=== PATIENT | female | born 1940 | race Caucasian/White ===

== ENCOUNTER → 2018-02-05 06:30 | Outpatient (CLI) | payer MEDICARE, SELFPAY ==
--- NOTE | 2018-02-05 06:33 | MRI_ITS ---
STUDY: MRI RIGHT KNEE REASON FOR EXAM: Female, 77 years old. Right-sided knee pain. TECHNIQUE: Standardized fat and water weighted pulse sequences were obtained in all 3 orthogonal planes. COMPARISON: None. 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 There is signal heterogeneity within the articular cartilage of the medial femorotibial compartment with thinning of the articular cartilage. Normal medial femoral condyle and tibial plateau. There is fluid distension of the tibial collateral bursa, consistent with an associated bursitis. Normal distal semimembranosus, gracilis and semitendinosus tendons. Normal lateral meniscus. There is diffuse, greater than 50% thickness articular cartilage loss of the lateral femorotibial compartment. Normal lateral femoral condyle and tibial plateau. Normal proximal tibiofibular articulation. Normal lateral collateral (fibular) ligament. Normal popliteus tendon. Normal biceps femoris tendon. There may be some myxoid degeneration of the distal portion of the anterior cruciate ligament. The anterior cruciate ligament appears intact. Normal posterior cruciate ligament (PCL). Normal congruent patellofemoral articulation. There is signal heterogeneity within the articular cartilage of the patellofemoral compartment with moderate thinning of the articular cartilage surface. Normal medial and lateral patellar retinaculum. Normal quadriceps tendon. Normal patellar tendon. Normal Hoffa's fat pad. There is a small volume joint effusion. There is a Foley's cyst measuring approximately 6 x 2.3 x 1.1 cm in size. There is soft tissue edema adjacent to the patellar tendon. This may be the result of patellar tendinopathy or soft tissue contusion. The otherwise visualized osseous structures are unremarkable. MRI/Lower Ext Joint Only (Routine) IMPRESSION: 1. 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 2. Small joint effusion. 3. Foley's cyst. 4. Inflammation of the medial collateral ligament with possible bursitis. 5. Apparent sequela of soft tissue contusion of the anterior knee. Electronically Signed: Estephania Benson MD at 8:59 EDT , Service support ,
== END ==
PROVIDERS: Family Provider Internal Medicine; PCP Internal Medicine; Visit Provider Orthopaedic Surgery
DX: M23.8X1 Other internal derangements of right knee (principal)
CPT/HCPCS: 73721

== ENCOUNTER 2018-03-05 05:58 | Observation (INO) | payer MEDICARE, SELFPAY ==
[2018-02-26 13:27] VITALS: BP 141/82; PULSE 77; RESP 16; TEMP 36.6; O2SAT 98; BMI 26.8
--- NOTE | 2018-02-26 13:34 | SDCEKG_ITS ---
Test Reason : Blood Pressure : / mmHG Vent. Rate : 074 BPM Atrial Rate : 074 BPM P-R Int : 142 ms QRS Dur : 082 ms QT Int : 396 ms P-R-T Axes : 050 -04 047 degrees QTc Int : 439 ms Normal sinus rhythm Normal ECG Confirmed by IRENE LOVE MD ([id number]), photography editor JORGE ZUNIGA ([id number] on 03/01/2018 12:49:45 PM Referred By: Calvin Alanis Confirmed By:IRENE LOVE MD
[2018-02-26 13:59] LABS: Hematocrit 35.3 % (37-47); Hemoglobin 11.8 g/dl (12.0-15.0); Mean Corp Hgb Conc 33.4 g/gl (32-36); Mean Corpuscular Hgb 29.9 pg (27.0-32.0); Mean Corpuscular Volume 89.6 fL (81-99); Platelet Count 254 K/mm3 (150-450); RBC Distribution Width CV 12.6 % (11.6-14.6); RBC Distribution Width SD 40.4 fl (35.1-43.9); Red Blood Count 3.94 M/mm3 (4.2-5.4); Scan Indicated on CBC? Y/N NO; White Blood Count 5.7 K/mm3 (4.4-11.0)
[2018-02-26 14:02] LABS: Prothrombin Time (Protime)PT. 13.1 SECONDS (11.7-14.9)
[2018-02-26 14:03] LABS: Partial Thromboplast Time 28.5 Seconds (24.1-36.2)
[2018-02-26 14:12] LABS: Anion Gap 5 (5-15); BUN 15 mg/dL (7-18); BUN/Creat Ratio 19.3 RATIO (10-20); Calcium,Total 9.4 mg/dL (8.5-10.1); Chloride 99 mmol/L (98-107); Creatinine, Serum 0.78 mg/dL (0.55-1.02); EST Glomerular Filtration Rate 77 mL/min (>60); Est Glom Filt Rate - Afr Amer 93 mL/min (>60); Estimated Creatinine Clearance 40.21 ml/min; Glucose 100 mg/dL (74-106); Potassium 3.4 mmol/L (3.5-5.1); Sodium Level 135 mmol/L (136-145)
--- NOTE | 2018-02-28 15:53 | CASEMGMT ---
RN CM preop call to Omaira Odom. Omaira reports she lives alone in a single story home with 2 steps to enter. Omaira needs a walker and reports she would like to go to the TCU or RU for therapy as she does live alone and will not have assistance, unless her sister could stay with her. Omaira reports she is borrowing a raised toilet seat from her sister. RN CM explained the process for TCU/RU placement, and Omaira verbalizes understanding. RN CM let patient know an RN CM would be by to discuss transition planning and care coordination with her further after her surgery. Disposition Plan: TCU/RU vs Home with support of sister Moses. BERNARDO ChavarriaN, RN-BC, CCM
[2018-03-05] VITALS (14 sets, daily range): BP systolic 97–132; BP diastolic 52–70; PULSE 61–81; RESP 14–18; TEMP 36.2–36.4; O2SAT 94–100; BMI 26.8
--- NOTE | 2018-03-05 07:17 | PCM.DC.ORTHO ---
Discharge Activity: Return to Normal Activity, May not drive while taking narcotic pain medications., May Shower, Use Walker May shower in (days): 1 Ice area for (Minutes): 20 Weight Bearing Status: Weight bearing as tolerated Keep extremity elevated above heart level: Right Leg Call your doctor if your incision/area has: Continuous Slow Oozing, Sudden Increased Bleeding, Increased Pain/ Swelling, Increased Redness, Foul Smelling Discharge, Swelling at the incision site Call your doctor if you observe: Fever of 101 or Higher, Coldness, Increased Pain, Numbness or Tingling, Change in Color, Inability to urinate, Inability to have a bowel movement, Using more than one pad per hour, Shortness of breath, Dizziness, Fainting spells, Swelling in the ankles, Chest pain, Prolonged hiccoughing, Increased palpitations (irregular heartbeat), Calf discomfort, Uncontrolled pain Suture Line Care: Avoid Pulling/Pushing, Avoid Pinching/Bending Change Dressing in (Days):: 5 Remove Dressing in (days):: 5 Cleanse incision/area with: Soap & Water Allergies/Adverse Reactions: Allergies cortisone Adverse Reaction (Verified 02/26/18 13:04) Nausea hydrochlorothiazide Adverse Reaction (Verified 02/26/18 13:04) Other DIZZINESS,NAUSEA morphine Adverse Reaction (Verified 02/26/18 13:04) Other NAUSEA, LIGHTHEADED, HOT nitrofurantoin [From Macrobid] Adverse Reaction (Verified 02/26/18 13:04) Other DIZZINESS,NAUSEA CREST PRO HEALTH Adverse Reaction (Uncoded 02/26/18 13:04) Other BURNING,LESIONS Medications to take at Discharge Calcium Carb/Vitamin D3/Vit K1 [Viactiv Soft Chew] 1 ea PO BID 12/25/16 Cholecalciferol (Vitamin D3) [Vitamin D3] 5,000 unit PO DAILY 12/25/16 Polyvinyl Alcohol/Povidone/Pf [Refresh Classic Eye Drops] 1 ea OP DAILY PRN 12/25/16 Amlodipine [Norvasc] 5 mg PO DAILY 08/28/17 Betafood 2 tab PO BID 02/26/18 Chlorphil Couplex 1 cap PO TID 02/26/18 Fencho 1 cap PO TID 02/26/18 Gb Tone 26 drop PO TID 02/26/18 Lithuanian Black Radish 1 tab PO TID 02/26/18 Spleen Dessicated 1 tab PO BID 02/26/18 Spleen Pmg 1 tab PO TID 02/26/18 Zypan 1 tab PO TID 02/26/18 traMADol [Ultram] 50 mg PO Q6H 02/26/18 Aspirin E.C. [Ecotrin] 325 mg PO BID #30 tab 03/06/18 Docusate Sodium [Colace] 100 mg PO BID PRN PRN #10 cap 03/06/18 Famotidine [Pepcid] 40 mg PO DAILY #30 tab 03/06/18 proMETHazine tablet [Phenergan] 25 mg PO Q4H PRN PRN #10 tab 03/06/18 traMADol [Ultram] 50 mg PO Q4H PRN PRN #42 tab 03/06/18 The following prescriptions were given: proMETHazine tablet [Phenergan] 25 mg PO Q4H PRN PRN #10 tab PRN Reason: Nausea traMADol [Ultram] 50 mg PO Q4H PRN PRN #42 tab PRN Reason: Pain Docusate Sodium [Colace] 100 mg PO BID PRN PRN #10 cap PRN Reason: Constipation Famotidine [Pepcid] 40 mg PO DAILY #30 tab Aspirin E.C. [Ecotrin] 325 mg PO BID #30 tab Primary Care Physician: Raquel Alexis DO [Primary Care Provider] - Please Follow Up With: Calvin Alanis DO When: call [facility] for appt for 2 weeks Proposed Discharge Date: 03/06/18
[2018-03-05] MEDS: Celecoxib 200 MG Capsule PO (07:26)
[2018-03-05] MEDS: oxyCODONE HCl Cr 10 MG Tablet PO (07:26)
[2018-03-05] MEDS: Cefazolin 2 GM in 0.9% Normal Saline 100 ML IV (08:43)
--- NOTE | 2018-03-05 10:23 | PCM.OPRPT ---
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 Patient had an MRI that showed chondromalacia and degenerative meniscus tears with extrusion. Patient was informed her options were surgical scope evaluation of the knee meniscus debridement and consideration for subchondral plasty injection if needed and observation versus evaluation for unicompartmental arthroplasty versus total knee. The patient really wanted a 1 and done type procedure and elected for unicompartmental arthroplasty versus total knee. Patient was counseled consented for the aforementioned procedure. She is met in the holding area where she was marked and identified by the orthopedic surgeon. Taken the operating room in satisfactory condition with somewhat to place to identify patient operative procedure and limb. Patient received 2 g Ancef and 1 g of TXA. She underwent a successful spinal anesthesia. She was then prepped and draped in usual fashion. Patient had a well-placed tourniquet the right proximal thigh. Left lower extremity was placed into a well-padded lithotomy position. The right lower extremity had the elevation post in anticipation of flexing the knee to a minimum 110?. She was then prepped and draped in the usual fashion right lower extremity was elevated Esmarch used for exsanguination and tourniquet was increased to 250 mmHg for roughly 55 minutes. Patient had a standard midline incision cheating slightly across the medial border of the patella with sharp dissection down to soft tissues and Bovie cautery 20 bleeding. Then incised longitudinal capsule essentially from the inferior aspect of the VMO moving distally toward the tibial tubercle. The anterior fat pad was dissected. The patient's ACL was well synovialized. Patient had minimal chondromalacia to the lateral compartment. Patellofemoral joint showed grade 2 changes really to the medial and central ridge of the patella but the trochlea was essentially free of any significant changes. The medial compartment showed significant chondromalacia changes at about 45? knee flexion moving more distally and posterior. Patient had standard anteromedial wear patterns consistent with her medial compartment arthrosis. She had an obvious degenerative tear to the meniscus with instability fragments. At that point time the sizing spoons were placed. We elected to use a small sizing spoon for this patient. We then placed the tibial guide using standard technique. We performed our standard sagittal saw cut off the medial aspect of the medial tibial eminence staying parallel to her cut slope. We then performed a standard distal tibial cut using standard technique with good wafer formation. Came out in continuity. At that point time the center aspect of the femur was then identified in the appropriate alignment pins were placed. Posterior cutting block was then performed and this was done using standard technique. At that point time valgus stress was placed the knee in the excess remnant portion of the medial meniscus was resected using standard rim. We were cautious to minimize our anteromedial release. At that point time we began her sizing. Ultimately we sized taking 4 mm off the distal femur. At that point time the 3 mm balloons in both flexion and extension gaps were balanced. We then performed standard preparation of the femur with our posterior chamfer cut. Using standard technique any excess debris was removed. Patient sized to a size B tibial tray. It was positioned accordingly and the standard fin cut was then performed. Trial components were placed in a 3 component poly-gave excellent flexion-extension. Patient remained ligamentously stable and showed no signs of any roof impingement. At that point time the coplanar was introduced to prevent anterior impingement in full extension. Excess debris removed. Cement was then prepared the back table. Tibial component was seated accordingly excess cement was removed. Femoral component was also seated. Please note after drill holes were placed into the distal femur in order to allow for better cement interdigitation. 4 Jody was then introduced to aid with compression during the cement curing process. Wound was copious irrigated during multiple times during the procedure. Upon complete cement curing and excess cement removal, we trialed to a 3 component and felt we had good mechanical alignment stability and range of motion. Trial component removed and the wound scopes irrigated one additional time prior to placement of the 3 mm insert Jody. We then injected the soft tissues to include the posterior capsule with roughly 30 cc of the periarticular cocktail for pain management. At that point time the knee was then closed using [id number] technique with #1 Vicryl. Soft tissues reapproximated 2-0 Vicryl. Skin was reapproximated with running subicular Monocryl and Dermabond and a Silverlon dressing was applied. Tourniquet was let down during final closure. We had no drains or complications. Implants included the [employer] [place] knee small femur the tibia 3 mm tibial Jody insert. Patient be admitted for for 24 hours of IV antibiotics appropriate IV and p.o. pain medication DVT prophylaxis to include SCDs teds early aggressive range of motion in 325 p.o. twice daily of aspirin with appropriate GI prophylaxis. Type of Anesthesia:: Spinal Grafts/Implants Used: [place] [employer] [place] - Complications none - Admit VTE Documentation VTE Present on Admission: No VTE Mechan Device Prophylaxis: SCD's, Knee High ROBERT Hose VTE Pharm Prophylaxis ordered?: Yes
--- NOTE | 2018-03-05 10:31 | PCM.IMDPSTOP ---
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 Patient had an MRI that showed chondromalacia and degenerative meniscus tears with extrusion. Patient was informed her options were surgical scope evaluation of the knee meniscus debridement and consideration for subchondral plasty injection if needed and observation versus evaluation for unicompartmental arthroplasty versus total knee. The patient really wanted a 1 and done type procedure and elected for unicompartmental arthroplasty versus total knee. Patient was counseled consented for the aforementioned procedure. She is met in the holding area where she was marked and identified by the orthopedic surgeon. Taken the operating room in satisfactory condition with somewhat to place to identify patient operative procedure and limb. Patient received 2 g Ancef and 1 g of TXA. She underwent a successful spinal anesthesia. She was then prepped and draped in usual fashion. Patient had a well-placed tourniquet the right proximal thigh. Left lower extremity was placed into a well-padded lithotomy position. The right lower extremity had the elevation post in anticipation of flexing the knee to a minimum 110?. She was then prepped and draped in the usual fashion right lower extremity was elevated Esmarch used for exsanguination and tourniquet was increased to 250 mmHg for roughly 55 minutes. Patient had a standard midline incision cheating slightly across the medial border of the patella with sharp dissection down to soft tissues and Bovie cautery 20 bleeding. Then incised longitudinal capsule essentially from the inferior aspect of the VMO moving distally toward the tibial tubercle. The anterior fat pad was dissected. The patient's ACL was well synovialized. Patient had minimal chondromalacia to the lateral compartment. Patellofemoral joint showed grade 2 changes really to the medial and central ridge of the patella but the trochlea was essentially free of any significant changes. The medial compartment showed significant chondromalacia changes at about 45? knee flexion moving more distally and posterior. Patient had standard anteromedial wear patterns consistent with her medial compartment arthrosis. She had an obvious degenerative tear to the meniscus with instability fragments. At that point time the sizing spoons were placed. We elected to use a small sizing spoon for this patient. We then placed the tibial guide using standard technique. We performed our standard sagittal saw cut off the medial aspect of the medial tibial eminence staying parallel to her cut slope. We then performed a standard distal tibial cut using standard technique with good wafer formation. Came out in continuity. At that point time the center aspect of the femur was then identified in the appropriate alignment pins were placed. Posterior cutting block was then performed and this was done using standard technique. At that point time valgus stress was placed the knee in the excess remnant portion of the medial meniscus was resected using standard rim. We were cautious to minimize our anteromedial release. At that point time we began her sizing. Ultimately we sized taking 4 mm off the distal femur. At that point time the 3 mm balloons in both flexion and extension gaps were balanced. We then performed standard preparation of the femur with our posterior chamfer cut. Using standard technique any excess debris was removed. Patient sized to a size B tibial tray. It was positioned accordingly and the standard fin cut was then performed. Trial components were placed in a 3 component poly-gave excellent flexion-extension. Patient remained ligamentously stable and showed no signs of any roof impingement. At that point time the coplanar was introduced to prevent anterior impingement in full extension. Excess debris removed. Cement was then prepared the back table. Tibial component was seated accordingly excess cement was removed. Femoral component was also seated. Please note after drill holes were placed into the distal femur in order to allow for better cement interdigitation. 4 Jody was then introduced to aid with compression during the cement curing process. Wound was copious irrigated during multiple times during the procedure. Upon complete cement curing and excess cement removal, we trialed to a 3 component and felt we had good mechanical alignment stability and range of motion. Trial component removed and the wound scopes irrigated one additional time prior to placement of the 3 mm insert Jody. We then injected the soft tissues to include the posterior capsule with roughly 30 cc of the periarticular cocktail for pain management. At that point time the knee was then closed using [id number] technique with #1 Vicryl. Soft tissues reapproximated 2-0 Vicryl. Skin was reapproximated with running subicular Monocryl and Dermabond and a Silverlon dressing was applied. Tourniquet was let down during final closure. We had no drains or complications. Implants included the [employer]anna [employer] [place] knee small femur the tibia 3 mm tibial Jody insert. Patient be admitted for for 24 hours of IV antibiotics appropriate IV and p.o. pain medication DVT prophylaxis to include SCDs teds early aggressive range of motion in 325 p.o. twice daily of aspirin with appropriate GI prophylaxis. Estimated Blood Loss: 10 Specimen's removed: none Type of Anesthesia:: Spinal ASA Class: ASA1 Normal Healthy Patient - Admit VTE Documentation VTE Present on Admission: No VTE Mechan Device Prophylaxis: SCD's, Knee High ROBERT Hose VTE Pharm Prophylaxis ordered?: Yes
--- NOTE | 2018-03-05 11:01 | EKG12_ITS ---
Test Reason : POST OP Blood Pressure : / mmHG Vent. Rate : 081 BPM Atrial Rate : 081 BPM P-R Int : 154 ms QRS Dur : 086 ms QT Int : 384 ms P-R-T Axes : 052 004 142 degrees QTc Int : 446 ms Poor data quality, interpretation may be adversely affected Normal sinus rhythm with sinus arrhythmia Nonspecific T wave abnormality Abnormal ECG When compared with ECG of 26-FEB-2018 12:34, Nonspecific T wave abnormality, worse in Inferior leads T wave inversion now evident in Anterior leads Confirmed by KATE STRONG, IRENE ([id number]), senior technical editor JORGE ZUNIGA ([id number]) on 03/08/2018 12:57:42 PM Referred By: Calvin Alanis Confirmed By:IRENE LOVE MD
[2018-03-05] MEDS: Mag Hydrox/Al Hydrox/Simeth 30 ML UDC PO (11:06)
--- NOTE | 2018-03-05 11:10 | RAD_ITS ---
STUDY: X-RAY - RIGHT KNEE REASON FOR EXAM: Female, 77 years old. Unicompartmental knee replacement. TECHNIQUE: 3 view(s) of the knee. COMPARISON: Comparison is made with prior study dated October 25, 2017. FINDINGS: The patient is status post medial unicompartmental knee replacement. There is good alignment. Postoperative soft tissue changes. RAD/Knee 1 or 2 Views IMPRESSION: Status post medial unicompartmental joint replacement. There is good alignment. Electronically Signed: Ian Bhatia MD at 13:05 EDT Tel [phone], Service support ,
[2018-03-05] MEDS: Lactated Ringers 1,000 ML 75 ML IV (12:00)
[2018-03-05] MEDS: oxyCODONE 5 MG Tablet PO (13:51)
[2018-03-05] MEDS: Acetaminophen 500 MG Tablet 1000 MG PO ×2 (13:54→21:36)
--- NOTE | 2018-03-05 14:37 | CASEMGMT ---
Social Work Note SW met with pt to discuss discharge planning and to assist discharge needs. SW introduced self and role at [facility]. SW asked pt about her discharge plans. Per pt, if rehabilitation is required she would like to stay here at the hospital and suggested the Inpatient rehabilitation here at the hospital. SW informed pt that this worker will place a call to inpatient rehab to inform them of referral. CINTHIA placed a call to inpatient rehabilitation and left a message for Maryanne regarding referral for pt. Medical Scientific Officer will continue to follow to assist with discharge planning. Pt denied additional needs at this time. Plan: Inpatient rehabilitation pending acceptance Hannah Toney PEARL MAKER, METHODS AND PROCEDURES ANALYST
--- NOTE | 2018-03-05 15:02 | NURSING ---
therapy asked nursing to check BP prior to working with patient as she was feeling dizzy. reported results to MARTI Cannon.
[2018-03-05] MEDS: Cefazolin 1 GM/50 ML BAG IV (17:08)
[2018-03-05] MEDS: Aspirin 325 MG Tablet PO (17:11)
[2018-03-05] MEDS: Senna/Docusate Sodium 1 Tablet 2 TABLET PO (21:36)
[2018-03-06 00:33] VITALS: BP 144/61; PULSE 83; RESP 17; TEMP 36.9; O2SAT 95
[2018-03-06] MEDS: oxyCODONE 5 MG Tablet PO ×2 (01:52→08:27)
[2018-03-06] MEDS: Cefazolin 1 GM/50 ML BAG IV (01:52)
[2018-03-06] MEDS: Lactated Ringers 1,000 ML 75 ML IV (01:53)
[2018-03-06 02:08] VITALS: BP 121/64; PULSE 63; RESP 16; TEMP 36.6; O2SAT 100
[2018-03-06 02:11] VITALS: O2SAT 100
[2018-03-06] MEDS: Acetaminophen 500 MG Tablet 1000 MG PO ×3 (05:23→21:18)
[2018-03-06] MEDS: traMADol 50 MG Tablet PO ×3 (05:24→21:20)
[2018-03-06 06:25] LABS: Hematocrit 30.5 % (37-47); Hemoglobin 9.7 g/dl (12.0-15.0); Mean Corp Hgb Conc 31.8 g/gl (32-36); Mean Corpuscular Hgb 29.3 pg (27.0-32.0); Mean Corpuscular Volume 92.1 fL (81-99); Mean Platelet Vol. 10.1 fl (6.2-12.0); Platelet Count 199 K/mm3 (150-450); RBC Distribution Width CV 12.8 % (11.6-14.6); RBC Distribution Width SD 42.1 fl (35.1-43.9); Red Blood Count 3.31 M/mm3 (4.2-5.4); White Blood Count 4.8 K/mm3 (4.4-11.0)
[2018-03-06 06:35] LABS: Anion Gap 5 (5-15); BUN 11 mg/dL (7-18); BUN/Creat Ratio 15.9 RATIO (10-20); Calcium,Total 8.4 mg/dL (8.5-10.1); Chloride 104 mmol/L (98-107); Creatinine, Serum 0.69 mg/dL (0.55-1.02); EST Glomerular Filtration Rate 88 mL/min (>60); Est Glom Filt Rate - Afr Amer 106 mL/min (>60); Estimated Creatinine Clearance 40.21 ml/min; Glucose 86 mg/dL (74-106); Potassium 4.4 mmol/L (3.5-5.1); Sodium Level 140 mmol/L (136-145)
[2018-03-06 06:41] LABS: Scan Indicated on CBC? Y/N NO
--- NOTE | 2018-03-06 07:45 | PCM.PN.ORT ---
Subjective: Postop day 1 status post right knee unicompartmental arthroplasty. No major issues overnight. Pain is controlled currently with a combination of OxyIR and tramadol. Patient interested in going to inpatient rehab of available due to the fact that she lives alone. No other reported fevers chills nausea vomiting chest pain or shortness of breath. Patient has been ambulatory. Currently eating breakfast. - Physical Exam General: Alert, Oriented x3, Cooperative, No apparent distress Musculoskeletal: - - Distally neurovascular intact. Range of motion 0-75. No calf pain negative Homans SCDs teds in place. Vital signs remained stable. Hardware well seated well-placed after radiographic review. Vital Signs Temp Pulse Resp BP Pulse Ox 97.8 F 63 16 121/64 H 100 03/06/18 02:08 03/06/18 02:08 03/06/18 02:08 03/06/18 02:08 03/06/18 02:11 Oxygen Delivery Method Room Air Weight: 151 lb 3.794 oz Body Mass Index (BMI) 26.8 Intake and Output for Last 24 Hours 03/04/18 03/05/18 03/06/18 23:59 23:59 23:59 Intake Total 3950 / 3950 713 / 713 Output Total 500 / 500 1100 / 1100 Balance 3450 / 3450 -387 / -387 Laboratory Tests Past 24 Hrs 03/05/18 03/06/18 03/06/18 11:03 05:23 05:23 WBC 4.8 RBC 3.31 L Hgb 9.7 L Hct 30.5 L MCV 92.1 MCH 29.3 MCHC 31.8 L RDW 12.8 RDW Differential 42.1 Plt Count 199 MPV 10.1 Sodium 140 Potassium 4.4 Chloride 104 Carbon Dioxide 31.0 Anion Gap 5 BUN 11 Creatinine 0.69 Estim Creat Clear Calc 40.21 Est GFR (MDRD) Af Amer 106 Est GFR (MDRD) Non-Af 88 BUN/Creatinine Ratio 15.9 Glucose 86 Calcium 8.4 L Troponin I < 0.02 Medical Necessity - Tobacco Use Smoking Status: Never smoker Assessment/Plan Assessment: After orthopedics status post right unicompartmental arthroplasty. Patient doing well. Plan: At this point time we await evaluation by physical therapy and case management for placement to the inpatient rehab unit if available. If the patient does not qualify that we will set up home health for discharge. Please contact me when the patient meets criteria for discharge out to rehab and/or to home. Any major issues please contact me.
[2018-03-06 08:00] VITALS: BP 114/74; PULSE 77; RESP 18; TEMP 36.9; O2SAT 100
[2018-03-06] MEDS: Aspirin 325 MG Tablet PO ×2 (08:27→17:50)
[2018-03-06] MEDS: Senna/Docusate Sodium 1 Tablet 2 TABLET PO ×2 (10:00→21:18)
[2018-03-06] MEDS: amLODIPine 5 MG Tablet PO (10:01)
[2018-03-06] MEDS: 0.9% NaCl Peripheral Flush Adult/Peds IV (10:04)
--- NOTE | 2018-03-06 10:11 | CASEMGMT ---
Social Work Note CINTHIA placed call to Maryanne with Inpatient rehab about referral that this worker sent yesterday. Per Maryanne, pt meets criteria for inpatient rehab but her insurance will not pay for it. Maryanne states that pt can go on TCU list and that she will have a bed for pt tomorrow. CINTHIA states that she will confirm with pt her discharge plans and if she is agreeable to TCU. CINTHIA met with pt to discuss TCU. SW informed pt that her insurance will not cover the inpatient rehabilitation but that this worker can see if her insurance will cover the TCU. SW informed pt that she will remain at the hospital if accepted into TCU and that it will be short term. Pt was receptive to this and agrees to TCU. CINTHIA left a message with Sommer in TCU and spoke with Maryanne that pt that is agreeable for TCU and to submit pre-cert. Maryanne states that she will begin pre-cert. CINTHIA will continue to follow to assist with discharge planning. Plan: TCU pending pre-cert Hannah Toney SYSTEM PROGRAMMER, PHOTOGRAPHIC PROCESS WORKER
--- NOTE | 2018-03-06 14:05 | CASEMGMT ---
Medicare Outpatient Observation Notice review with patient and patient voiced no questions at this time. Original filed on chart and copy provided to patient. Medicare Inpateint vs Observation information packet provided to patient.
[2018-03-06 14:51] VITALS: BP 112/84; PULSE 74; RESP 18; TEMP 36.9; O2SAT 100
[2018-03-06 21:35] VITALS: PULSE 83
[2018-03-07 02:36] VITALS: BP 147/78; PULSE 69; RESP 18; TEMP 35.7; O2SAT 99
[2018-03-07] MEDS: traMADol 50 MG Tablet PO (04:09)
[2018-03-07 06:37] LABS: Hemoglobin 10.5 g/dl (12.0-15.0); Mean Corp Hgb Conc 32.8 g/gl (32-36); Mean Corpuscular Hgb 29.2 pg (27.0-32.0); Mean Corpuscular Volume 89.1 fL (81-99); Mean Platelet Vol. 10.4 fl (6.2-12.0); Platelet Count 216 K/mm3 (150-450); RBC Distribution Width CV 12.9 % (11.6-14.6); RBC Distribution Width SD 41.7 fl (35.1-43.9); Red Blood Count 3.59 M/mm3 (4.2-5.4); White Blood Count 5.9 K/mm3 (4.4-11.0)
[2018-03-07 06:41] LABS: Scan Indicated on CBC? Y/N NO
--- NOTE | 2018-03-07 07:29 | PCM.PN.ORT ---
Subjective: Postop day 2 status post right medial unicompartmental arthroplasty. Patient reports having little bit of dizziness with some the medication which she is somewhat sensitive to. States that she walked to PT and back. Currently tolerating regular diet. No other fevers chills nausea vomiting chest pain or shortness of breath noted. Vital signs remained stable. Awaiting placement to the transitional care unit. - Physical Exam General: Alert, Oriented x3, Cooperative, No apparent distress Musculoskeletal: - - Distally neurovascular intact. No calf pain negative Homans. SCDs teds in place. Range of motion 0-75. H&H reviewed and stable. Urged patient be working on better range of motion. Vital Signs Temp Pulse Resp BP Pulse Ox 96.3 F L 69 18 147/78 H 99 03/07/18 02:36 03/07/18 02:36 03/07/18 02:36 03/07/18 02:36 03/07/18 02:36 Oxygen Delivery Method Room Air Weight: 151 lb 3.794 oz Body Mass Index (BMI) 26.8 Intake and Output for Last 24 Hours 03/05/18 03/06/18 03/07/18 23:59 23:59 23:59 Intake Total 3950 / 3950 3403 / 3403 800 / 800 Output Total 500 / 500 4300 / 4300 1999 / 1999 Balance 3450 / 3450 -897 / -897 -1200 / -1200 Laboratory Tests Past 24 Hrs 03/07/18 05:10 WBC 5.9 RBC 3.59 L Hgb 10.5 L Hct 32.0 L MCV 89.1 MCH 29.2 MCHC 32.8 RDW 12.9 RDW Differential 41.7 Plt Count 216 MPV 10.4 Medical Necessity - Tobacco Use Smoking Status: Never smoker Assessment/Plan Assessment: After orthopedics status post right unicompartmental arthroplasty. Patient doing well. Plan: At this point time we await evaluation by physical therapy and case management for placement to TCU unit if available. If the patient does not qualify that we will set up home health for discharge. Please contact me when the patient meets criteria for discharge out to rehab and/or to home. Any major issues please contact me. Medications are currently on the chart and her medication list has been printed. If there are any forms for me to fill out either fax them to my office or I will come over after clinic and signed them. Any issues please contact me. Continue to work on aggressive pulmonary toileting.
--- NOTE | 2018-03-07 07:32 | PCM.DC.BLA ---
Discharge Summary Date of Admission: 03/05/18 Date of Discharge: 03/07/18 Summary: 77-year-old female admitted status post right medial compartment arthroplasty for 24 hours of IV antibiotics appropriate IV and p.o. pain medication DVT prophylaxis to include SCDs teds early aggressive range of motion and 325 p.o. twice daily of aspirin with GI prophylaxis. Patient was initially evaluated for inpatient rehab but her insurance would not pay for placement. Patient subsequent evaluated for transitional care unit due to the fact that she lives alone and needs some observation in terms of her ability status. No other issues at this point time. Patient is sensitive to medications were to use tramadol predominantly for pain control. Assessment: Aftercare orthopedics status post right unicompartmental arthroplasty. Plan: At this point time anticipate discharge the transitional care unit for 1 to weeks. Patient is weightbearing as tolerated. Continue with DVT prophylaxis to include ROBERT hose, continued mobilization and 325 p.o. twice daily of aspirin with GI prophylaxis. Patient will follow with me in 2 weeks. The patient is in the transitional care unit at her 2 week postop date then I will see her in the transitional care unit to avoid her having to come to the clinic. Any issues please contact me. Patient may shower at this time. Do not submerge wound but shower okay.
[2018-03-07 08:23] VITALS: BP 130/73; PULSE 78; RESP 14; TEMP 36.7; O2SAT 100
[2018-03-07] MEDS: Acetaminophen 500 MG Tablet 1000 MG PO ×2 (08:30→13:55)
[2018-03-07] MEDS: amLODIPine 5 MG Tablet PO (08:30)
[2018-03-07] MEDS: Aspirin 325 MG Tablet PO (08:31)
[2018-03-07] MEDS: Pantoprazole Sodium 40 MG Tablet PO (08:35)
[2018-03-07] MEDS: Senna/Docusate Sodium 1 Tablet 2 TABLET PO (08:36)
--- NOTE | 2018-03-07 09:53 | CASEMGMT ---
Social Work Note SW received message that pt's insurance denied TCU. SW informed pt of this. CINTHIA explained the option of Home Health Care to pt and pt is agreeable to this. Pt is also agreeable to [facility] Home Health. CINTHIA informed MARTI Villafuerte of this and she made referral to [facility] Home Health. Pt is also wanting a walker at discharge and CINTHIA informed RN OSCAR Villafuerte of this as well who will follow up with walker. CINTHIA placed call to Dr. Alanis that pt will be going home with Home Health Care. Plan: Home with [facility] Home Health Care Hannah GERMAN, RADIO STATION MANAGER
--- NOTE | 2018-03-07 09:57 | CASEMGMT ---
MARTI MOORE received update from CINTHIA Toney that patient was denied TCU and is requesting HHC with [facility]. Also informed patient will need FWW. MARTI MOORE sent referral to [facility] for PT and they will be able to accept the patient. MARTI MOORE requested script from Dr. Alanis's office for FWW and will forward to patient's preferred DME company and arrange to have walker delivered to hospital prior to discharge. MARTI MOORE will continue to follow this patient and plan for a safe discharge.
[2018-03-07 13:59] VITALS: BP 119/70; PULSE 74; RESP 16; TEMP 36.8; O2SAT 93
--- NOTE | 2018-03-07 14:27 | CASEMGMT ---
Social Work Note Per BATTALION CHIEF Casandra Valiente, pt would like to complete health care POA and living will. SW completed health care POA and living will with pt and payroll secretary Senia witness signatures of pt. Health car POA and living will completed. Pt received originals and copy on pt's chart. Plan: Home with [facility] Home Health Care Hannah Toney TECHNICAL SUPPORT SPECIALIST, BUSINESS ASST
== END 2018-03-07 14:55 | disposition home health service (06) ==
PROVIDERS: Anesthesiology; Admitting Provider Orthopaedic Surgery; Family Provider Internal Medicine; PCP Internal Medicine; Visit Provider Orthopaedic Surgery
PROC: (CPT 27446; principal; 2018-03-05 07:35)
DX: M23.303 Other meniscus derangements, unspecified medial meniscus, right knee (principal); M23.8X1 Other internal derangements of right knee; G89.29 Other chronic pain; R42 Dizziness and giddiness; Z79.82 Long term (current) use of aspirin; Z79.899 Other long term (current) drug therapy; I10 Essential (primary) hypertension; Z85.828 Personal history of other malignant neoplasm of skin; I27.20 Pulmonary hypertension, unspecified; R01.1 Cardiac murmur, unspecified; G47.30 Sleep apnea, unspecified; K44.9 Diaphragmatic hernia without obstruction or gangrene
CPT/HCPCS: 27446; 64447; 36415; 73560; 80048; 84484; 85027; 85610; 85730; 87081; 93005; 96361; 96365; 96366; 96367; 97110; 97116; 97162; 97165; 97530; 97535; 99218; J7120; A4216; G0378; G0379; J2405

== ENCOUNTER → 2018-04-15 09:16 | Outpatient (CLI) | payer MEDICARE, SELFPAY ==
--- NOTE | 2018-04-15 09:17 | RAD_ITS ---
STUDY: X-RAY - RIGHT KNEE REASON FOR EXAM: Female, 77 years old. Postop. TECHNIQUE: 4 view(s) of the knee. COMPARISON: None. FINDINGS: The patient is status post medial arthroplasty. The prosthetic components are intact and the heart calculated normally with each other. There is no loosening from the underlying bone. The distal femur and proximal tibia are otherwise unremarkable. Normal proximal fibula. There is no fracture or destructive osseous pathology. Normal lateral femorotibial compartment. Normal patellofemoral articulation. There is a small suprapatellar joint effusion. The soft tissue structures are unremarkable. RAD/Knee 4 or More Views IMPRESSION: Status post medial knee arthroplasty. There is a small suprapatellar joint effusion. Electronically Signed: Andrew Arcos DO at 16:54 EDT Tel [phone], Service support ,
== END ==
PROVIDERS: Family Provider Internal Medicine; PCP Internal Medicine; Visit Provider Orthopaedic Surgery
DX: M25.561 Pain in right knee (principal)
CPT/HCPCS: 73564; 97110

== ENCOUNTER 2018-05-08 09:00 | Outpatient (RCR) | payer MEDICARE, SELFPAY ==
--- NOTE | 2018-04-11 16:32 | HP.PTEVAL_ITS ---
Patient's Visit Information ANGEL OLIVER is a 77 year old F referred to Physical Therapy by Calvin Alanis DO with a diagnosis of R UKA. Date of Evaluation: 04/11/18 Physical Therapist: Sherif Richter, PT, - Visit Plan Frequency: 3x /Week Duration: 4-6 Weeks Plan: R knee PROM/MOBS, R LE stretching and strengthening, balance and proprio, core stab ex's, nustep, and HEP - Subjective Subjective: Pt comes to PT today s/p R UKA. Pt had R medial knee pain 6 months ago diagnosed as bursitis. Xrays of knees from September were normal. UKA date of surgery is March 05. Pt had home health PT prior to this visit focused on ROM , strengthening, gait training. Pt uses cane for fear of falling in the mornings and around the house. Reports knee buckling and the knee feeling unsteady. Pt notes knee swelling by the end of the day. Icing and tylenol help alleviate the pain. Surgicial site is red and closed. Pt reports pain 1/10 on the medial aspect of the knee at present moment. Notes numbness on lateral aspect of knee. Pt reports pain being the worst 10/10 this morning when twisting to get into the bathroom. Pt goals include returning to gardening, bending, decreasing swelling, and working on balance. - Pain R knee Pain Intensity (Out of 10): 1 Pain Intensity Range: 10 - Objective Neuro: all sensation to light tough is intact in the B LE. Reflexes: achilles 2 + Bliat. ROM: R knee ext -1-0-119; L: knee ext -3-0-89. MMT: R: flex 4, ext 5 ; L: flex 3+*, ext 3+*. Surgicial Incision: healing nicely; slight redness noted. Girth: R 39cm; L 41 cm - Goals Goal 1:: Decrease R knee pain x 50% to aid with pt's gina for prolonged ambulation Goal Time Frame: 4-6 Weeks Goal 2:: Increase R knee ROM x 30 degrees to aid with restoring a more normal gait pattern Goal Time Frame: 4-6 Weeks Goal 3:: Increase R knee strength x 1 grade to aid with stair negotiation Goal Time Frame: 4-6 Weeks Goal 4:: I with HEP Goal Time Frame: 4-6 Weeks - Rehabilitation Potential Physical Therapy Diagnosis: R knee pain, weakness, and limited ROM secondary to R UKA Rehabilitation Potential: Good - Anticipated Interventions Patient/Client Instruction: Educate patient on: Condition, Plan of Care For the Purpose of:: To improve self management Therapeutic Exercise to Include: Strength training, Endurance training, Balance training, Flexibilty training, Gait and locomotor training, Active ROM, Dynamic Lumbar Stabilization For the Purpose of:: To decrease pain, To increase ROM, To improve muscle performance and motor function Cryotherapy (ice pack, ice massage): Yes For the Purpose of:: To decrease pain Thank you for the opportunity to evaluate your patient. For Medicare and Medicare HMO plans, please review the plan of care and approve it. It will need to be FAXED BACK to us at [phone] for Medicare purposes. Please let me know if there are questions or concerns regarding this plan of care. Physician Signature: Date:
--- NOTE | 2018-06-27 16:51 | HP.PT.NRP ---
HP - Discharge Summary (1) - Patient Information ANGEL OLIVER was seen in my office for initial evaluation on 04/11/18. The following Plan of Care was established for this patient: Initial Frequency: 3x /Week Initial Duration: 4-6 Weeks - Anticipated Interventions Patient/Client Instruction: Educate patient on: Condition, Plan of Care For the Purpose of:: To improve self management Therapeutic Exercise to Include: Strength training, Endurance training, Balance training, Flexibilty training, Gait and locomotor training, Active ROM, Dynamic Lumbar Stabilization For the Purpose of:: To decrease pain, To increase ROM, To improve muscle performance and motor function Cryotherapy (ice pack, ice massage): Yes For the Purpose of:: To decrease pain This patient was last seen in our office . Pertinent comments regarding their Physical therapy will appear below: Pt was treated for 11 PT visits for her UKA through the date of 05/08/18. Pt has not returned through todays date, and is therefore discontinued at this time. At this point I will be discontinuing this patient from physical therapy. I would be happy to see this patient again in the future if found appropriate by the physician. Thank you! Sherif Richter, PT,
== END 2018-05-08 19:00 | disposition home or self-care (01) ==
LOC: PT 09:00
PROVIDERS: Family Provider Internal Medicine; PCP Internal Medicine; Visit Provider Orthopaedic Surgery
DX: Z98.890 Other specified postprocedural states (principal)
CPT/HCPCS: 97110; 97161; 97530

== ENCOUNTER 2018-05-08 10:32 | Emergency (ER) | payer MEDICARE, SELFPAY ==
[2018-05-08 10:33] VITALS: PULSE 77; RESP 15; TEMP 36.2; O2SAT 99; BMI 26.6
--- NOTE | 2018-05-08 10:47 | VDLE_ITS ---
Reason For Study: RLE pain s/p TKR 03/13 RIGHT LEFT GSV is normal. CFV is compressible, spontaneous, phasic, CFV is compressible, spontaneous, phasic, competent, and demonstrates normal competent and demonstrates normal augmentation. augmentation. FV is compressible, spontaneous, phasic, competent and demonstrates normal augmentation. POP V is compressible, spontaneous, phasic, competent and demonstrates normal augmentation. T/P Trunk is compressible. PTV is compressible. RT PerV is compressible. Hypoechoic structure noted extending from prox to mid calf. Measures 1.1 cm at widest point. Non-vascular. Procedure Exam performed portable in ED. A preliminary report was called and/or faxed to Dr. Aparicio. Interpretation Summary There is no evidence of right lower extremity deep vein thrombosis. Right greater saphenous vein appears patent and compressible segmentally. Non vascular structure from te porixmal to mid calf, partially hypoechoic, possible fluid or related to recent surgical procedure, clinical correlation would be appropriate.. Maximum width 1.1cm Ordering Physician: Gaston Aparicio Referring Physician: Calvin Alanis Performed By: Amanda Bergman RVT
--- NOTE | 2018-05-08 11:16 | ED.VISSUMM ---
- ER Visit Summary Date of Service: 05/08/18 Chief Complaint: Right lower leg swelling status post right partial knee replacement 2 months ago. History of Present Illness: The patient is a 77 F past medical history of hypertension and has known venous insufficiency. States that she had a right partial knee replacement done by Dr. Calvin Alanis in February. Was doing well has been going through physical therapy. States that about 2 weeks ago developed swelling in her right lower leg. She denies any chest pain or shortness of breath. She has never had a DVT or PE. Denies any hemoptysis. Physical Examination: Well-appearing older female. Vital signs are stable afebrile. Pulse ox 9 9% on room air no signs of hypoxia. H EENT exam unremarkable. Neck nontender no JVD. Lungs clear to auscultation bilaterally. Heart regular rate and rhythm no murmur. Abdomen soft nontender. She is moving all 4 extremities. Neurovascular intact. She has a very well-healing midline incision from her partial knee replacement on the right knee. There is still mild knee swelling. The right lower leg has 1+ pitting edema. There is no cord. She has no specific calf tenderness. The right foot is neurovascular intact. Left lower extremities unremarkable without edema or tenderness. Neurologically she is awake and alert without focal motor deficits. Test Results: None imaged of the right lower extremities showed soft tissue swelling consistent with edema but no DVT. I discussed this with the manufacturing test technician. Emergency Department Course and Treatment: Repeat exam patient doing well. Treatment Plan: The right leg to decrease swelling. Follow-up with primary care physician as needed. Disposition: Discharge Impression: Right lower swelling status post knee replacement surgery with a history of venous insufficiency This note was generated with [employer] dictation software. It may contain incorrect words, spelling, and punctuation that were not noted in review of the chart prior to signing ED Disposition - Plan for ED Patient: Chief Complaint: Lower Extremity Injury Referrals: Raquel Alexis DO [Primary Care Provider] -
--- NOTE | 2018-05-08 11:30 | ED.DCSUM_ITS ---
- ER Visit Summary Date of Service: 05/08/18 Chief Complaint: Right lower leg swelling status post right partial knee replacement 2 months ago. History of Present Illness: The patient is a 77 F past medical history of hypertension and has known venous insufficiency. States that she had a right partial knee replacement done by Dr. Calvin Alanis in February. Was doing well has been going through physical therapy. States that about 2 weeks ago developed swelling in her right lower leg. She denies any chest pain or shortness of breath. She has never had a DVT or PE. Denies any hemoptysis. Physical Examination: Well-appearing older female. Vital signs are stable afebrile. Pulse ox 9 9% on room air no signs of hypoxia. H EENT exam unremarkable. Neck nontender no JVD. Lungs clear to auscultation bilaterally. Heart regular rate and rhythm no murmur. Abdomen soft nontender. She is moving all 4 extremities. Neurovascular intact. She has a very well-healing midline incision from her partial knee replacement on the right knee. There is still mild knee swelling. The right lower leg has 1+ pitting edema. There is no cord. She has no specific calf tenderness. The right foot is neurovascular intact. Left lower extremities unremarkable without edema or tenderness. Neurologically she is awake and alert without focal motor deficits. Test Results: None imaged of the right lower extremities showed soft tissue swelling consistent with edema but no DVT. I discussed this with the pump technician. Emergency Department Course and Treatment: Repeat exam patient doing well. Treatment Plan: The right leg to decrease swelling. Follow-up with primary care physician as needed. Disposition: Discharge Impression: Right lower swelling status post knee replacement surgery with a history of venous insufficiency This note was generated with [employer]wi dictation software. It may contain incorrect words, spelling, and punctuation that were not noted in review of the chart prior to signing ED Disposition - Plan for ED Patient: Chief Complaint: Lower Extremity Injury Referrals: Raquel Alexis DO [Primary Care Provider] -
--- NOTE | 2018-05-08 11:30 | ED.DEP ---
ED Disposition - Plan for ED Patient: Disposition: Home or Assisted Living Chief Complaint: Lower Extremity Injury Instructions: Understanding Chronic Venous Insufficiency Referrals: Raquel Alexis DO [Primary Care Provider] - As Needed Additional Instructions: Elevate right leg is much possible to decrease swelling.
[2018-05-08 11:37] VITALS: PULSE 74; RESP 16; O2SAT 98
== END 2018-05-08 11:38 | disposition home or self-care (01) ==
PROVIDERS: Emergency Provider Emergency Medicine; Family Provider Internal Medicine; PCP Internal Medicine
DX: M79.89 Other specified soft tissue disorders (principal); Z96.651 Presence of right artificial knee joint; I87.2 Venous insufficiency (chronic) (peripheral); I10 Essential (primary) hypertension
CPT/HCPCS: 93971; 97530; 99282

== ENCOUNTER → 2018-05-10 11:49 | Outpatient (CLI) | payer MEDICARE, SELFPAY ==
--- NOTE | 2018-05-10 11:51 | BI_ITS ---
MAMMOGRAPHY - BILATERAL SCREENING REASON FOR EXAM: Female, 78 years old. Routine annual screening examination. PERTINENT HISTORY: Non-contributory. TECHNIQUE: Digital bilateral breast shae (3D mammographic acquisition) in the CC and MLO projections. 2-D mediolateral oblique (MLO) and craniocaudad (CC) views of both breasts were obtained. CAD: Full Field Digital Mammography with Computer Added Detection was performed. COMPARISON: Comparison is made with prior study dated April 10, 2017 and January 18, 2016. FINDINGS: Breast Composition: The breasts are heterogeneously dense, which may obscure small masses. There are no dominant masses or suspicious calcifications. No other significant abnormalities are identified. There has been no significant change since the prior study. BI/SCREENING MAMM (CAD), BILAT IMPRESSION: Stable bilateral screening mammogram. Yearly follow-up mammogram recommended. (A) ASSESSMENT CATEGORY: BIRADS Category 1: Negative. A letter regarding these results will be sent to the patient by the facility within 30 days. Approximately 10% of breast cancers are not detected by mammography. A normal mammogram should not delay biopsy of a clinically suspicious abnormality. [id number] Electronically Signed: Ian Bhatia MD at 8:27 EDT Tel [phone], Service support ,
== END ==
PROVIDERS: Family Provider Internal Medicine; PCP Internal Medicine; Visit Provider Internal Medicine
DX: Z12.31 Encounter for screening mammogram for malignant neoplasm of breast (principal)
CPT/HCPCS: 77063; 77067

== ENCOUNTER → 2019-03-27 08:58 | Outpatient (CLI) | payer MEDICARE, SELFPAY ==
--- NOTE | 2019-03-27 09:03 | ECHOD_ITS ---
Reason For Study: PHTN Procedure This was a 2D Doppler, Color Flow transthoracic echocardiogram. The exam was of adequate technical quality. Exam performed in department. Left Ventricle Normal LV size. Left ventricular systolic function is normal. The estimated ejection fraction is 65 %. Diastolic function is indeterminate. No regional wall motion abnormalities noted. Right Ventricle Normal RV size. Normal systolic function. Atria The left atrium is moderately enlarged. The right atrium is mildly enlarged. No doppler evidence for ASD. Mitral Valve There is moderate mitral annular calcification. Extension of the mitral annular calcification onto the posterior mitral valve leaflet. Mild (1+) mitral valve insufficiency. Tricuspid Valve Normal tricuspid valve. Trivial tricuspid valve insufficiency. Right ventricular systolic pressure estimated to be 28 mmHg. Aortic Valve Trisinus/trileaflet aortic valve. Mild focal aortic valve calcification. Pulmonic Valve The pulmonic valve is not well visualized. Trivial pulmonic valve insufficiency. Great Vessels Normal sized aortic root. Pericardium/Pleural No pericardial effusion. MMode/2D Measurements & Calculations LVIDd: 4.7 cm IVSd: 0.98 cm LVOT diam: 2.0 cm LVIDs: 2.9 cm LVPWd: 1.0 cm LVOT area: 3.0 cm2 RVDd: 3.2 cm FS: 39.1 % Ao root diam: 3.3 cm LAV(MOD-bp): 56.7 ml LA A4 area: 18.6 cm2 LAV(MOD-bp) Indexed: 32.4 ml/m2 LAV(MOD-sp2): 51.2 ml LAV(MOD-sp4): 49.2 ml LA dimension(2D): 3.9 cm RA A4 area: 15.9 cm2 Time Measurements MV dec time: 0.24 sec Doppler Measurements & Calculations MV E max amaury: 105.8 cm/sec Lat Peak E' Amaury: 6.1 cm/sec Med Peak E' Amaury: 5.6 cm/sec MV A max amaury: 139.2 cm/sec E/E' lat: 17.4 E/E' med: 19.1 MV E/A: 0.76 Ao V2 max: 184.9 cm/sec LV V1 max: 135.2 cm/sec SV(LVOT): 93.6 ml Ao max P.7 mmHg LV V1 max P.3 mmHg Ao V2 mean: 128.1 cm/sec LV V1 mean P.1 mmHg Ao mean P.2 mmHg LV V1 mean: 97.1 cm/sec Ao V2 VTI: 40.5 cm LV V1 VTI: 31.1 cm DEONNA(I,D): 2.3 cm2 DEONNA(V,D): 2.2 cm2 PA V2 max: 73.8 cm/sec TR max amaury: 220.4 cm/sec TR max P.5 mmHg Interpretation Summary Left ventricular systolic function is normal. The estimated ejection fraction is 65 %. The left atrium is moderately enlarged. The right atrium is mildly enlarged. There is moderate mitral annular calcification. Extension of the mitral annular calcification onto the posterior mitral valve leaflet. Mild (1+) mitral valve insufficiency. Trivial tricuspid valve insufficiency. Mild focal aortic valve calcification. Trivial pulmonic valve insufficiency. Right ventricular systolic pressure estimated to be 28 mmHg. Diastolic function is indeterminate. Ordering Physician: Raquel Alexis Referring Physician: Raquel Alexis Performed By: Connie Triplett, RDABBEY, RVT
== END ==
PROVIDERS: Family Provider Internal Medicine; PCP Internal Medicine; Referring Provider Internal Medicine; Visit Provider Internal Medicine
DX: I27.20 Pulmonary hypertension, unspecified (principal)
CPT/HCPCS: 93306

== ENCOUNTER → 2019-05-22 08:42 | Outpatient (CLI) | payer MEDICARE, SELFPAY ==
--- NOTE | 2019-05-22 08:45 | BI_ITS ---
MAMMOGRAPHY - BILATERAL SCREENING 3-D TOMOSYNTHESIS REASON FOR EXAM: Female, 79 years old. Bilateral Screening 3-D tomosynthesis PERTINENT HISTORY: No significant family history. TECHNIQUE: 2-D mammograms and 3-D Tomosynthesis of the breast (s) were performed. CAD was performed. COMPARISON: May 10, 2018, April 10, 2017, January 18, 2016 FINDINGS: The breast composition is almost entirely fat. Scattered benign calcifications are seen. No dense spiculated masses or suspicious microcalcifications are identified. No architectural distortion is identified. There is no skin thickening or retraction. There has been no significant change since the prior study. BI/SCREEN MAMM (CAD) W/YEISON BILAT IMPRESSION: No mammographic signs of malignancy. Routine yearly mammograms recommended. ASSESSMENT CATEGORY: BIRADS Category 2: Benign. A letter regarding these results will be sent to the patient by the facility within 30 days. FOLLOW UP RECOMMENDATION: Yearly follow up mammogram recommended. (A) Approximately 10% of breast cancers are not detected by mammography. A normal mammogram should not delay biopsy of a clinically suspicious abnormality. Electronically Signed: Jan White MD at 16:04 EDT , Service support ,
== END ==
PROVIDERS: Family Provider Internal Medicine; PCP Internal Medicine; Referring Provider Internal Medicine; Visit Provider Internal Medicine
DX: Z12.31 Encounter for screening mammogram for malignant neoplasm of breast (principal)
CPT/HCPCS: 77063; 77067

== ENCOUNTER 2019-06-07 12:07 | Emergency (ER) | payer MEDICARE, SELFPAY ==
[2019-06-07 12:08] VITALS: BP 143/79; PULSE 72; RESP 16; TEMP 36.5; O2SAT 96; BMI 27.4
--- NOTE | 2019-06-07 12:26 | ED.DCSUM_ITS ---
- ER Visit Summary Date of Service: 06/07/19 Chief Complaint: Left knee pain History of Present Illness: The patient is a 79 F who states that she has developed left posterior knee pain. She denies any swelling of the leg. No calf pain. No history of DVT. [facility] She notes the pain is on the lateral posterior aspect of the left knee and radiates laterally into the lateral hamstring. Physical Examination: Afebrile vital signs stable The left calf is nontender. There is no unilateral leg swelling. 2 fingerbreadths above the lateral malleolus and 2 fingerbreadths below the tibial plateau the calves are symmetric. No palpable cords. There is point tenderness well near the posterior lateral aspect of the knee. I do not appreciate a Folye's cyst. There is mild tenderness to the lateral tendons. Emergency Department Course and Treatment: Patient does not have evidence of DVT. I do not believe we need to send her d-dimer. Patient will be discharged home instructions for rest gentle stretching anti-inflammatories as needed. Impression: Left posterior knee pain This note was generated with [employer] dictation software. It may contain incorrect words, spelling, and punctuation that were not noted in review of the chart prior to signing ED Disposition - Plan for ED Patient: Disposition: Home or Assisted Living Instructions: Foley's Cyst Referrals: Raquel Alexis DO [Primary Care Provider] - 1 Week if not improving
[2019-06-07 12:32] VITALS: RESP 18
--- NOTE | 2019-06-07 12:33 | ED.RN ---
pt left at 1230
== END 2019-06-07 12:30 | disposition home or self-care (01) ==
PROVIDERS: Emergency Provider Emergency Medicine; Family Provider Internal Medicine; PCP Internal Medicine
DX: S76.312A Strain of muscle, fascia and tendon of the posterior muscle group at thigh level, left thigh, initial encounter (principal); M25.562 Pain in left knee; X58.XXXA Exposure to other specified factors, initial encounter; Y93.9 Activity, unspecified; Y92.9 Unspecified place or not applicable; I10 Essential (primary) hypertension; I27.20 Pulmonary hypertension, unspecified; Z79.82 Long term (current) use of aspirin; Z79.899 Other long term (current) drug therapy
CPT/HCPCS: 99282

== ENCOUNTER → 2019-09-03 14:05 | Outpatient (CLI) | payer MEDICARE, SELFPAY ==
--- NOTE | 2019-09-03 14:23 | RAD_ITS ---
STUDY: X-RAY - LUMBOSACRAL SPINE REASON FOR EXAM: Female, 79 years old. Low back pain TECHNIQUE: 6 view(s) of the lumbosacral spine were obtained. With flexion and extension COMPARISON: None FINDINGS: Normal lumbar lordosis. There is a dextroscoliosis of the lumbar spine. There is normal alignment of the vertebrae. There is multilevel endplate spondylosis of the lumbar vertebrae. There is multi-level degenerative disc disease with multi-level disc space narrowing. Postsurgical change noted at L4-5. No abnormal translation with flexion or extension Normal bilateral sacral ala, sacroiliac joints, and visualized sacrum. Normal visualized soft tissue structures. RAD/L/S Spine w Bend Min 6 Vw IMPRESSION: Degenerative changes of the spine, as detailed above. Electronically Signed: Salvador Hodge DO at 13:00 EDT Tel , Service support ,
--- NOTE | 2019-09-03 14:40 | RAD_ITS ---
STUDY: X-RAY - RIGHT KNEE REASON FOR EXAM: Female, 79 years old. Postop TECHNIQUE: 4 view(s) of the knee. COMPARISON: April 15, 2018 FINDINGS: Stable prosthesis of the medial femorotibial compartment. Normal lateral femorotibial compartment. Normal patellofemoral articulation. The soft tissue structures are unremarkable. RAD/Knee 4 or More Views IMPRESSION: Stable prosthesis of the knee. Electronically Signed: Kyle Mae DO at 22:33 EDT Tel [phone], Service support ,
== END ==
PROVIDERS: Family Provider Internal Medicine; PCP Internal Medicine; Referring Provider Orthopaedic Surgery; Visit Provider Orthopaedic Surgery
DX: M54.5 Low back pain (principal); Z96.651 Presence of right artificial knee joint
CPT/HCPCS: 72114; 73564

== ENCOUNTER → 2019-12-25 | Outpatient (CLI) | payer MEDICARE, SELFPAY ==
[2019-09-08 09:03] VITALS: BMI 27.6
[2019-12-25 12:20] LABS: Absolute Lymphocyte Count 0.84 X10^3/uL (0.83-4.51); Basophil# 0.04 X10^3/uL; Basophil% 0.7 % (0-1); Eosinophil# 0.13 X10^3/uL; Eosinophils% 2.3 % (0-5); Hematocrit 34.9 % (37-47); Hemoglobin 10.9 g/dL (12.0-15.0); Lymphocyte # 0.84 X10^3/ul (4.0); Mean Corp Hgb Conc 31.2 g/dL (32-36); Mean Corpuscular Hgb 28.7 pg (27.0-32.0); Mean Corpuscular Volume 91.8 fL (81-99); Mean Platelet Vol. 10.8 fl (6.2-12.0); Monocyte# 0.56 X10^3/uL; NRBC Flagged by Analyzer 0 % (0-5); Neutrophil # 4.01 X10^3/uL (2.7-7.7); Neutrophil % 71.5 % (47-70); Platelet Count 227 K/mm3 (150-450); RBC Distribution Width SD 43.3 fl (35.1-43.9); White Blood Count 5.6 K/mm3 (4.4-11.0)
[2019-12-25 12:34] LABS: AST(SGOT) 18 U/L (15-37); Alanine Aminotransfer ALT/SGPT 20 U/L (13-56); Albumin, Serum 3.7 g/dL (3.2-5.0); Alkaline Phosphatase 50 U/L (45-117); Bilirubin, Direct 0.15 mg/dL (0.00-0.30); Globulin 3.7 g/dL (2.2-4.2); Protein, Total 7.4 g/dL (6.4-8.2)
== END | disposition home or self-care (01) ==
LOC: MTLAB 10:46
PROVIDERS: PCP Internal Medicine; Referring Provider Dermatology; Visit Provider Dermatology
DX: Z79.899 Other long term (current) drug therapy (principal); L43.8 Other lichen planus; R20.8 Other disturbances of skin sensation; L57.0 Actinic keratosis
CPT/HCPCS: 36415; 80076; 85025

== ENCOUNTER → 2020-05-18 | Outpatient (CLI) | payer MEDICARE, SELFPAY ==
[2019-09-08 09:03] VITALS: BMI 27.6
[2020-05-18 12:45] LABS: Absolute Lymphocyte Count 0.82 X10^3/uL (0.83-4.51); Absolute Neutrophil Count 4.3 X10^3/uL (2.0-7.7); Basophil# 0.02 X10^3/uL; Basophil% 0.3 % (0-1); Eosinophil# 0.12 X10^3/uL; Eosinophils% 2.1 % (0-5); Hematocrit 35.4 % (37-47); Hemoglobin 11.3 g/dL (12.0-15.0); Lymphocyte # 0.82 X10^3/ul (4.0); Lymphocyte % 14.3 % (19-41); Mean Corp Hgb Conc 31.9 g/dL (32-36); Mean Corpuscular Hgb 30.1 pg (27.0-32.0); Mean Corpuscular Volume 94.4 fL (81-99); Mean Platelet Vol. 10.8 fl (6.2-12.0); Monocyte# 0.48 X10^3/uL; Monocyte% 8.4 % (0-10); NRBC Flagged by Analyzer 0 % (0-5); Neutrophil # 4.28 X10^3/uL (2.7-7.7); Neutrophil % 74.6 % (47-70); Platelet Count 246 K/mm3 (150-450); RBC Distribution Width CV 13.5 % (11.6-14.6); RBC Distribution Width SD 46.5 fl (35.1-43.9); Red Blood Count 3.75 M/mm3 (4.2-5.4); White Blood Count 5.7 K/mm3 (4.4-11.0)
[2020-05-18 13:07] LABS: AST(SGOT) 18 U/L (15-37); Alanine Aminotransfer ALT/SGPT 24 U/L (13-56); Albumin, Serum 3.5 g/dL (3.2-5.0); Alkaline Phosphatase 48 U/L (45-117); Bilirubin, Direct 0.14 mg/dL (0.00-0.30); Globulin 3.7 g/dL (2.2-4.2); Protein, Total 7.2 g/dL (6.4-8.2)
== END | disposition home or self-care (01) ==
LOC: MTLAB 09:44
PROVIDERS: PCP Internal Medicine; Referring Provider Dermatology; Visit Provider Dermatology
DX: Z79.899 Other long term (current) drug therapy (principal); L43.8 Other lichen planus; R20.8 Other disturbances of skin sensation; K11.7 Disturbances of salivary secretion
CPT/HCPCS: 36415; 80076; 85025

== ENCOUNTER → 2020-05-25 | Outpatient (CLI) | payer MEDICARE, SELFPAY ==
[2019-09-08 09:03] VITALS: BMI 27.6
--- NOTE | 2020-05-25 13:25 | BI_ITS ---
MAMMOGRAPHY - BILATERAL SCREENING REASON FOR EXAM: Female, 80 years old. Routine annual screening examination. PERTINENT HISTORY: Non-contributory. TECHNIQUE: Digital bilateral breast yeison (3D mammographic acquisition) in the CC and MLO projections. 2-D mediolateral oblique (MLO) and craniocaudad (CC) views of both breasts were obtained. CAD: Full Field Digital Mammography with Computer Added Detection was performed. COMPARISON: Comparison is made with prior examination dated May 22, 2019 and May 10, 2018. FINDINGS: Breast Composition: The breasts are heterogeneously dense, which may obscure small masses. There are no dominant masses or suspicious calcifications. Stable small benign appearing bilateral axillary lymph nodes. No other significant abnormalities are identified. There has been no significant change since the prior study. BI/SCREEN MAMM (CAD) W/YEISON BILAT IMPRESSION: Stable bilateral screening mammogram. Yearly follow-up mammogram recommended. (A) ASSESSMENT CATEGORY: BIRADS Category 2: Benign. A letter regarding these results will be sent to the patient by the facility within 30 days. Approximately 10% of breast cancers are not detected by mammography. A normal mammogram should not delay biopsy of a clinically suspicious abnormality. [id number] Electronically Signed: Ian Bhatia, at 14:55 EDT , Service support ,
--- NOTE | 2020-05-25 13:31 | BD_ITS ---
STUDY: DUAL ENERGY X-RAY ABSORPTIOMETRY / DXA REASON FOR EXAM: Female, 80 years old. 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 COMPARISON: Comparison is made with prior study dated April 10, 2017. FINDINGS: Lumbar Spine (L1-L4): g/cm2 (1.440) / T-score (2.3) / Z-score (4.1) Findings are suggestive of normal bone density with a low fracture risk. Left Femur Total: g/cm2 (0.932) / T-score (-0.6) / Z-score (1.3) Left Femoral Neck: g/cm2 (0.768) / T-score (-1.9) / Z-score (0.1) Right Femur Total: g/cm2 (0.937) / T-score (-0.6) / Z-score (1.3) Right Femoral Neck: g/cm2 (0.796) / T-score (-1.7) / Z-score (0.3) The T-Scores on the most recent prior examination were: Lumbar Spine (L1-L4): There has been improvement of bone density since the previous examination. Left Femur Total: which represents a worsening of 1.3%. Right Femur Total: which represents a worsening of 0.4%. BD/Dexa Bone Density Study IMPRESSION: The patient is considered osteopenic as outlined below according to World Zac Organization (WHO) criteria with a moderate fracture risk. There has been worsening of bone density since the previous examination. Reference Information: The T-score is the number of standard deviations above or below the standard which is normal for young adults at their peak bone mineral density. The World Health Organization (WHO) interprets the T-scores as follows: Above -1 Normal bone density Between -1 and -2.5 Osteopenia Equal to / or below -2.5 Osteoporosis As a practical clinical guideline, osteopenia may be graded as follows: Mild -1 through -1.5 Moderate -1.6 through -2.0 Severe -2.1 through -2.4 The Z-score is the number of standard deviations above or below age-matched controls. A Z-score of less than -1.5 would be considered abnormal. References: 1. NIH Osteoporosis and Related Bone Diseases http://www.osteo.org 2. International Society for Clinical Densitometry http://www.iscd.org 3. National Osteoporosis Foundation http://www.nof.org Electronically Signed: Ian Bhatia, at 7:36 EDT , Service support ,
== END | disposition home or self-care (01) ==
LOC: OPBD 13:23
PROVIDERS: PCP Internal Medicine; Referring Provider Internal Medicine; Visit Provider Internal Medicine
DX: Z78.0 Asymptomatic menopausal state (principal); Z12.31 Encounter for screening mammogram for malignant neoplasm of breast
CPT/HCPCS: 77063; 77067; 77080

== ENCOUNTER → 2020-07-21 10:51 | Outpatient (CLI) | payer MEDICARE, SELFPAY ==
[2020-07-21 10:44] VITALS: BMI 27.6
--- NOTE | 2020-07-21 10:52 | RAD_ITS ---
STUDY: X-RAY - RIGHT KNEE REASON FOR EXAM: Female, 80 years old. INCREASED RT KNEE PAIN TECHNIQUE: 4 view(s) of the knee. COMPARISON: Prior exam of the right knee from 09/03/2019 FINDINGS: She is status post replacement of the medial compartment of the knee. The tibial and femoral components remain normally aligned with no evidence of hardware failure or migration. Normal visualized proximal tibia and fibula. Normal proximal tibiofibular articulation. Normal medial femorotibial compartment. Normal lateral femorotibial compartment. Normal patellofemoral articulation. The soft tissue structures are unremarkable. RAD/Knee 4 or More Views IMPRESSION: Status post medial compartment repair with no change in bone, joint or hardware finding since 09/03/2019. Electronically Signed: Stefanie Sow MD at 20:57 EDT , Service support ,
== END ==
PROVIDERS: PCP Internal Medicine; Referring Provider Orthopaedic Surgery; Visit Provider Orthopaedic Surgery
DX: M25.561 Pain in right knee (principal)
CPT/HCPCS: 73564

== ENCOUNTER 2020-09-15 11:30 | Outpatient (RCR) | payer MEDICARE, SELFPAY ==
[2020-07-21 10:44] VITALS: BMI 27.6
--- NOTE | 2020-07-27 09:55 | HP.PTEVAL_ITS ---
Patient's Visit Information ANGEL OLIVER is a 80 year old F referred to Physical Therapy by Dr. Dallas Tomlin DO with a diagnosis of R IT Band Syndrome, HS tendonitis. Date of Evaluation: 07/27/20 Physical Therapist: GEORGINA Farley - Visit Plan Frequency: 2-3x /Week Duration: 4 Weeks Plan: ++Pt had a R Partial TKR 2 years ago++++. 2-3X/ week for R IT band stretching, gastroc stretching, and Hip flexor strentching, MT if needed to the above, R hip and knee strengthening with some core stability, gait training, functional activities, with HEP. - Subjective Pt reports that she went to see Dr Gonzalez for tender under knee cap and IT band. She had a partial TKR on the R 2 years ago and x-rays were normal as of her last appointment with Dr Tomlin. She also has some back pain also. She could hardly walk this morning because of her back. Her current knee pain started the first week of April. She was walking 2 miles per day. It hurts medially with walking. She wears compression socks cause she gets blood pulling. Stairs: she does best of she goes recip and pulls up on the railing. Sit to stand: No pain with stanind. She can hardly move in the morning. She got a [employer] creams and it has been doing much better since Sunday. She always has tighness in her calf. Pt refused cortizone shot because she gets an adverse reaction. - Pain R medial knee pain Pain Intensity (Out of 10): 6 R iT band pain Pain Intensity (Out of 10): 3 Hamstring pain Pain Intensity (Out of 10): 0 - Objective Gait: walks with a normal gait pattern with decrease stance time on the R LE. Palpation: tender R medial knee joint line, tender R patellar tendon, tender R lateral HS tendon. knee AROM: R knee: 0-124 degrees knee flexion and L knee 0- 128 degrees. LE MMT: B hip flex 4-/5, B knee ext 4/5, B knee flex 4/5, B hip abd 4-/5, B hip ext 2-/5. Trunk extension to neutral and can not lay on stomach due to increase back pain. Able to Heel and toe walk with increase pain in R knee and tightness in R calf. Tight hip flexors B, tight gastroc B, Tight R IT band, Good HS length - Goals Goal 1:: I HEP Goal Time Frame: 4-6 Weeks Goal 2:: Decrease R knee pain to 1/10 be able to resume 2.5 mile walks per day. Goal Time Frame: 4-6 Weeks Goal 3:: Increase R knee strength by 1/2 muscle grade (at time of eval: LE MMT: B hip flex 4-/5, B knee ext 4/5, B knee flex 4/5, B hip abd 4-/5, B hip ext 2- /5). Goal Time Frame: 4-6 Weeks Goal 4:: walk with normal gait pattern with equal stance time on B LE's Goal Time Frame: 4-6 Weeks - Rehabilitation Potential Rehabilitation Potential: Good - Anticipated Interventions Patient/Client Instruction: Educate patient on: Condition, Plan of Care For the Purpose of:: To decrease pain, To increase ROM, To improve nutrient del ahmet to tissue, To increase oxygenation perfusion, To improve muscle performance and motor function, To improve ability to perform ADL's, To increase tolerance to activity/condition/position, To improve performance and independence with ADL's, To decrease level of supervision to perform tasks, To improve ability of physical actions for home/community/work/leisure, To improve gait and locomotor functions, To improve health of tissue, To decrease soft tissue restriction, To increase flexibility/ROM, To improve balance Therapeutic Exercise to Include: Strength training, Postural training, Flexibilty training, Gait and locomotor training, Passive ROM, Active ROM For the Purpose of:: To decrease pain, To increase ROM, To improve nutrient delivery to tissue, To improve muscle performance and motor function, To improve ability to perform ADL's, To increase tolerance to activity/condition/position, To improve performance and independence with ADL's, To decrease level of supervision to perform tasks, To improve ability of physical actions for home/community/work/leisure, To improve gait and locomotor functions, To improve health of tissue, To decrease soft tissue restriction, To increase flexibility/ROM Functional Training to Include: Gait training For the Purpose of:: To improve gait and locomotor functions, To improve safety with gait Thank you for the opportunity to evaluate your patient. For Medicare and Medicare HMO plans, please review the plan of care and approve it. It will need to be FAXED BACK to us at [phone] for Medicare purposes. For Medicare only, by signing this I certify the plan of care. Please let me know if there are questions or concerns regarding this plan of care. Physician Signature: Date:
--- NOTE | 2020-08-18 12:37 | HP.PTREVAL_ITS ---
Dr. Dallas Tomlin, DO, It has been my pleasure to treat ANGEL OLIVER over the last 10 visits for R IT Band Syndrome, HS tendonitis. Please see the progress note below for an update on the physical therapy plan of care! Subjective: Pt feels that the stretching helps the most. Infrapatella on the R is still painful. The IT band is better and she does a rolling pin at home also. She does the IT band stretch at home laying down. The knee pain has been there for 2 months. Pt feels that the post op compression socks increase her tenderness. She is able to walk 1 mile and then she starts to have pain. She still has to pull somewhat to go up the stairs. Objective/Function: Very tender R quad tendon. Pt has increased quad weakness when ascending the stairs. Plan Plan: ++Pt had a R Partial TKR 2 years ago++++. 2-3X/ week for R IT band stretching, gastroc stretching, and Hip flexor strentching, MT if needed to the above, R hip and knee strengthening with some core stability, gait training, functional activities, with HEP. Goals Goal 1:: I HEP Goal Time Frame: 4-6 Weeks Goal Progress: Goal Met Goal 2:: Decrease R knee pain to 1/10 be able to resume 2.5 mile walks per day. Goal Time Frame: 4-6 Weeks Goal Progress: Progressing Goal 3:: Increase R knee strength by 1/2 muscle grade (at time of eval: LE MMT: B hip flex 4-/5, B knee ext 4/5, B knee flex 4/5, B hip abd 4-/5, B hip ext 2- /5). Goal Time Frame: 4-6 Weeks Goal 4:: walk with normal gait pattern with equal stance time on B LE's Goal Time Frame: 4-6 Weeks Anticipated Interventions Patient/Client Instruction: Educate patient on: Condition, Plan of Care For the Purpose of:: To decrease pain, To increase ROM, To improve nutrient delivery to tissue, To increase oxygenation perfusion, To improve muscle performance and motor function, To improve ability to perform ADL's, To increase tolerance to activity/condition/position, To improve performance and independence with ADL's, To decrease level of supervision to perform tasks, To improve ability of physical actions for home/community/work/leisure, To improve gait and locomotor functions, To improve health of tissue, To decrease soft tissue restriction, To increase flexibility/ROM, To improve balance Therapeutic Exercise to Include: Strength training, Postural training, Flexibilty training, Gait and locomotor training, Passive ROM, Active ROM For the Purpose of:: To decrease pain, To increase ROM, To improve nutrient delivery to tissue, To improve muscle performance and motor function, To improve ability to perform ADL's, To increase tolerance to activity/condition/position, To improve performance and independence with ADL's, To decrease level of supervision to perform tasks, To improve ability of physical actions for home/community/work/leisure, To improve gait and locomotor functions, To improve health of tissue, To decrease soft tissue restriction, To increase flexibility/ROM Functional Training to Include: Gait training For the Purpose of:: To improve gait and locomotor functions, To improve safety with gait Please do not hesitate to contact me at [phone] by phone or if you have questions or concerns regarding this new plan of care! Sincerely, Shamika Shearer, MPT
--- NOTE | 2020-09-15 11:58 | HP.PTDCSUM_ITS ---
It has been my pleasure to treat ANGEL OLIVER referred by Dr. Dallas Tomlin DO, with the diagnosis of R IT Band Syndrome, HS tendonitis for a total of 19 visit(s). Discharge Date: 09/15/20 Please see the following information for a summary of their discharge status. Subjective: Pt reports 95% better. She is still struggling with the R knee and it is going down with curran. She struggles with putting her socks on. She struggles with pulling self up the steps. Her IT band is great. She lessoned her compression on her socks and that helped her swelling. Her knee feels like puffy. SHe has a decrease in sensation on her knee. Kneeling and the pressure on it she can not do. She does not follow up with [facility]. Pt is up to 1.5 miles a day without issue and will progress to her 2.5 as able. R medial knee pain Pain Intensity (Out of 10): 3 R iT band pain Pain Intensity (Out of 10): 2 Hamstring pain Pain Intensity (Out of 10): 0 R Lat knee pain Pain Intensity (Out of 10): 1 R lateral calf pain Pain Intensity (Out of 10): 2 % Improvement: 95 Objective/Function: LE MMT: B hip flex 4/5, B knee ext 4/5, B knee flex 4+/5, B hip abd 4/5, B hip ext 3+/5). Gait: walks with equal stance time on B LE's. Stairs: pt struggles with ascending the stairs with her R LE and a hand rail due to weakness. Goal 1:: I HEP Goal Progress: Goal Met Goal 2:: Decrease R knee pain to 1/10 be able to resume 2.5 mile walks per day. Goal Progress: Progressing Goal 3:: Increase R knee strength by 1/2 muscle grade (at time of eval: LE MMT: B hip flex 4-/5, B knee ext 4/5, B knee flex 4/5, B hip abd 4-/5, B hip ext 2- /5). Goal Progress: Goal Met Goal 4:: walk with normal gait pattern with equal stance time on B LE's Goal Progress: Goal Met Plan: DC PT to HEP Discharge Comments: DC PT to HEP If there are questions or concerns regarding this patient's physical therapy, please feel free to call me at [phone]. Thank you for the referral of this patient. Sincerely, Shamika Shearer, MPT
== END 2020-09-15 19:00 | disposition home or self-care (01) ==
LOC: PT 11:30
PROVIDERS: PCP Internal Medicine; Visit Provider Orthopaedic Surgery
DX: M76.31 Iliotibial band syndrome, right leg (principal); M76.891 Other specified enthesopathies of right lower limb, excluding foot
CPT/HCPCS: 97110; 97161; 97530

== ENCOUNTER → 2020-12-03 10:29 | Outpatient (CLI) | payer MEDICARE, SELFPAY ==
[2020-09-06 09:24] VITALS: BMI 26.6
[2020-12-03 12:30] LABS: Absolute Lymphocyte Count 0.86 X10^3/uL (0.83-4.51); Absolute Neutrophil Count 4.7 X10^3/uL (2.0-7.7); Basophil# 0.03 X10^3/uL; Basophil% 0.5 % (0-1); Eosinophils% 1.6 % (0-5); Hematocrit 35.1 % (37-47); Hemoglobin 10.9 g/dL (12.0-15.0); Lymphocyte # 0.86 X10^3/ul (4.0); Lymphocyte % 13.4 % (19-41); Mean Corp Hgb Conc 31.1 g/dL (32-36); Mean Corpuscular Hgb 29.3 pg (27.0-32.0); Mean Corpuscular Volume 94.4 fL (81-99); Mean Platelet Vol. 10.9 fl (6.2-12.0); Monocyte# 0.65 X10^3/uL; Monocyte% 10.1 % (0-10); NRBC Flagged by Analyzer 0 % (0-5); Neutrophil # 4.73 X10^3/uL (2.7-7.7); Neutrophil % 73.8 % (47-70); Platelet Count 259 K/mm3 (150-450); RBC Distribution Width CV 13.1 % (11.6-14.6); Red Blood Count 3.72 M/mm3 (4.2-5.4); White Blood Count 6.4 K/mm3 (4.4-11.0)
[2020-12-03 12:59] LABS: AST(SGOT) 19 U/L (15-37); Alanine Aminotransfer ALT/SGPT 24 U/L (13-56); Albumin, Serum 3.5 g/dL (3.2-5.0); Alkaline Phosphatase 60 U/L (45-117); Bilirubin, Direct 0.11 mg/dL (0.00-0.30); Globulin 3.6 g/dL (2.2-4.2); Protein, Total 7.1 g/dL (6.4-8.2)
== END ==
PROVIDERS: PCP Internal Medicine; Referring Provider Dermatology; Visit Provider Dermatology
DX: L43.8 Other lichen planus (principal); R20.8 Other disturbances of skin sensation; K11.7 Disturbances of salivary secretion; B37.2 Candidiasis of skin and nail; Z79.899 Other long term (current) drug therapy
CPT/HCPCS: 36415; 80076; 85025

== ENCOUNTER → 2021-05-26 12:07 | Outpatient (CLI) | payer MEDICARE, SELFPAY ==
--- NOTE | 2021-05-26 12:09 | BI_ITS ---
MAMMOGRAPHY - BILATERAL SCREENING REASON FOR EXAM: Female, 81 years old. Routine annual screening examination. PERTINENT HISTORY: Non-contributory. TECHNIQUE: Digital bilateral breast yeison (3D mammographic acquisition) in the CC and MLO projections. 2-D mediolateral oblique (MLO) and craniocaudad (CC) views of both breasts were obtained. CAD: Full Field Digital Mammography with Computer Added Detection was performed. COMPARISON: Comparison is made with prior study dated 05/25/2020 and 05/22/2019. FINDINGS: Breast Composition: The breasts are heterogeneously dense, which may obscure small masses. There are no dominant masses or suspicious calcifications. Stable benign-appearing bilateral axillary lymph nodes. No other significant abnormalities are identified. There has been no significant change since the prior study. BI/SCRN MAMM (CAD)W/YEISON BILAT IMPRESSION: Stable bilateral screening mammogram. Yearly follow-up mammogram recommended. (A) ASSESSMENT CATEGORY: BIRADS Category 2: Benign. A letter regarding these results will be sent to the patient by the facility within 30 days. Approximately 10% of breast cancers are not detected by mammography. A normal mammogram should not delay biopsy of a clinically suspicious abnormality. [id number] Electronically Signed: Ian Bhatia MD at 12:49 EDT , Service support ,
== END ==
PROVIDERS: PCP Internal Medicine; Referring Provider Internal Medicine; Visit Provider Internal Medicine
DX: Z12.31 Encounter for screening mammogram for malignant neoplasm of breast (principal)
CPT/HCPCS: 77063; 77067

== ENCOUNTER → 2021-06-01 13:58 | Outpatient (CLI) | payer MEDICARE, SELFPAY ==
[2021-06-01 17:42] LABS: Absolute Lymphocyte Count 0.86 X10^3/uL (0.83-4.51); Absolute Neutrophil Count 4.1 X10^3/uL (2.0-7.7); Basophil# 0.03 X10^3/uL; Basophil% 0.5 % (0-1); Eosinophil# 0.13 X10^3/uL; Eosinophils% 2.3 % (0-5); Hematocrit 34.3 % (37-47); Hemoglobin 10.8 g/dL (12.0-15.0); Lymphocyte # 0.86 X10^3/ul (0.83-4.51); Lymphocyte % 15.3 % (19-41); Mean Corp Hgb Conc 31.5 g/dL (32-36); Mean Corpuscular Hgb 29.1 pg (27.0-32.0); Mean Corpuscular Volume 92.5 fL (81-99); Mean Platelet Vol. 10.9 fl (6.2-12.0); Monocyte% 8.9 % (0-10); NRBC Flagged by Analyzer 0 % (0-5); Neutrophil # 4.08 X10^3/uL (2.7-7.7); Neutrophil % 72.6 % (47-70); Platelet Count 282 K/mm3 (150-450); RBC Distribution Width CV 13.2 % (11.6-14.6); RBC Distribution Width SD 44.7 fl (35.1-43.9); Red Blood Count 3.71 M/mm3 (4.2-5.4); White Blood Count 5.6 K/mm3 (4.4-11.0)
[2021-06-01 18:23] LABS: AST(SGOT) 21 U/L (15-37); Alanine Aminotransfer ALT/SGPT 27 U/L (13-56); Albumin, Serum 3.7 g/dL (3.2-5.0); Alkaline Phosphatase 57 U/L (45-117); Bilirubin, Direct 0.12 mg/dL (0.00-0.30); Globulin 3.6 g/dL (2.2-4.2); Protein, Total 7.3 g/dL (6.4-8.2)
== END ==
PROVIDERS: PCP Internal Medicine; Referring Provider Dermatology; Visit Provider Dermatology
DX: Z79.899 Other long term (current) drug therapy (principal)
CPT/HCPCS: 36415; 80076; 85025

== ENCOUNTER 2021-06-06 09:30 | Outpatient (RCR) | payer MEDICARE, SELFPAY ==
--- NOTE | 2021-03-03 11:51 | HP.PTEVAL ---
Patient's Visit Information ANGEL OLIVER is a 80 year old F referred to Physical Therapy by Dr. 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 Date of Evaluation: 03/03/21 Physical Therapist: GEORGINA Farley - Visit Plan Frequency: 2x /Week Duration: 6 Weeks Plan: 2X/ week for 6 weeks for AT for CORE stability, POSTURAL exercises, Hip and knee strength, stair negotiation ( increase drive through R knee painfree), deep water distraction, gait training, with HEP and stretching as needed. - Subjective Pt was here in July and was not completely healed but so much better than what it was. In 2017 she had R knee Partial TKR and inflammed IT band. She had a torn meniscus on MRI and Chiropractor and did heat and a vibrator and it was ok. She has had a back surgery in 1996 with titanium cage in it. Her back hurts with leaning over a bed, doing gardening. She now has L medial-anterior knee pain and some R lateral ankle pain. When she goes to stand up or walk for too long increases her pain. She still can not lift her R hip into flexion to go up steps.... because of pain ( medial knee pain). She can not kneel on her R knee. She has a foam roller and a vibrator - Pain Back pain Pain Intensity (Out of 10): 1 R knee pain Pain Intensity (Out of 10): 0 Pain Intensity Range: 3 Comment: with walking - Objective Gait: decreased stance time on the R leg. Observation: standing trunk shift away from the R side. Pt's R shoulder is lower than the L shoulder. Pt is able to walk on heels and toes but has increase pain on the R knee with heel walking. Trunk AROM: flexion 100%, Ext 50% ( has decreased extension onthe R side compared to the L). SB R 50% and L 75% and decreased Rot to the L. LE MMT: R hip flex 4-/5, L hip flex 4/5, B hip abd 4-/5, B hip ext 3-/5, B knee flex 4/5, B knee ext 4-/5. Palpation: tender R pes anser, and medial joint line. R knee flexion 125 degrees and 0 degrees ext. L knee flexion 120 degrees and 0 degrees ext. -SLUMP and -SLR. Stairs: pt struggles to drive through her R knee when ascending the steps and it also increases pain through her LB... using the handrail helps to get her to ascend the step - Goals Goal 1:: I HEP Goal Time Frame: 4-6 Weeks Goal 2:: Be able to walk without having R knee pain during her normal ADL's Goal Time Frame: 4-6 Weeks Goal 3:: Increase posture to be able to stand with upright posture ( not shifted away from the R side) Goal Time Frame: 4-6 Weeks Goal 4:: Be able to ascend and descend the stairs recip without having to really work to drive through the R LE to ascend the stairs Goal Time Frame: 4-6 Weeks Goal 5:: Decrease overall freq of R knee pain Goal Time Frame: 4-6 Weeks - Rehabilitation Potential Rehabilitation Potential: Good - Anticipated Interventions Patient/Client Instruction: Educate patient on: Condition, Plan of Care For the Purpose of:: To decrease pain, To increase ROM, To improve nutrient delivery to tissue, To improve muscle performance and motor function, To improve ability to perform ADL's, To increase tolerance to activity/condition/position, To improve performance and independence with ADL's, To improve gait and locomotor functions, To improve health of tissue, To decrease soft tissue restriction, To increase flexibility/ROM Therapeutic Exercise to Include: Strength training, Endurance training, Body mechanics, Postural training, Flexibilty training, Gait and locomotor training, In an aquatic setting, Passive ROM, Active ROM, Dynamic Lumbar Stabilization For the Purpose of:: To decrease pain, To increase ROM, To improve nutrient delivery to tissue, To improve muscle performance and motor function, To improve ability to perform ADL's, To increase tolerance to activity/condition/position, To improve performance and independence with ADL's, To decrease level of supervision to perform tasks, To improve gait and locomotor functions, To improve health of tissue, To increase flexibility/ROM Functional Training to Include: Gait training For the Purpose of:: To improve gait and locomotor functions Thank you for the opportunity to evaluate your patient. For Medicare and Medicare HMO plans, please review the plan of care and approve it. It will need to be FAXED BACK to us at [phone] for Medicare purposes. For Medicare only, by signing this I certify the plan of care. Please let me know if there are questions or concerns regarding this plan of care. Physician Signature: Date:
--- NOTE | 2021-05-04 10:39 | HP.PTREVAL_ITS ---
Dr. Dallas Tomlin, DO, It has been my pleasure to treat ANGEL OLIVER over the last 17 visits for R pes ans bursitis, HS insertion tendonitis, h/o uni TKR on the R, L-DDD. Please see the progress note below for an update on the physical therapy plan of care! Subjective: Pt reports that he pain comes and goes. She feels that she needs to stretch contious. She has some days with pain and other days without pain. SHe plans on coming 2 days/week. She feel that AT 1X/ week would still be helpful for progressions. She has Silver Sneakers. Pt feels that she more functional. She reports that she is better on stairs and can go up and down without pulling self up but her knee is acting up today. She is back to gardening. Objective/Function: Stairs: up with no railing using her R leg to really drive up the stair with an ataligic gait today (pt warned me that she was having a painful day). Downstairs recip with one hand on the railing. Pt sill likes to walk shifted away from the R side but it is improved stance time on the R LE. Plan Plan: Pt will do her own I H&W AT program. She will contact me within the month (June 04) to see if she still needs additional guidance through PT on progression or if her pain gets worse. Hold chart until 06-04-2021. Goals Goal 1:: I HEP Goal Time Frame: 4-6 Weeks Goal Progress: Goal Met Goal 2:: Be able to walk without having R knee pain during her normal ADL's Goal Time Frame: 4-6 Weeks Goal Progress: Progressing Goal 3:: Increase posture to be able to stand with upright posture ( not shifted away from the R side) Goal Time Frame: 4-6 Weeks Goal Progress: Progressing Goal 4:: Be able to ascend and descend the stairs recip without having to really work to drive through the R LE to ascend the stairs Goal Time Frame: 4-6 Weeks Goal Progress: Progressing Goal 5:: Decrease overall freq of R knee pain Goal Time Frame: 4-6 Weeks Goal Progress: Goal Met Anticipated Interventions Patient/Client Instruction: Educate patient on: Condition, Plan of Care For the Purpose of:: To decrease pain, To increase ROM, To improve nutrient delivery to tissue, To improve muscle performance and motor function, To improve ability to perform ADL's, To increase tolerance to activity/condition/position, To improve performance and independence with ADL's, To improve gait and locomotor functions, To improve health of tissue, To decrease soft tissue restriction, To increase flexibility/ROM Therapeutic Exercise to Include: Strength training, Endurance training, Body mechanics, Postural training, Flexibilty training, Gait and locomotor training, In an aquatic setting, Passive ROM, Active ROM, Dynamic Lumbar Stabilization For the Purpose of:: To decrease pain, To increase ROM, To improve nutrient delivery to tissue, To improve muscle performance and motor function, To improve ability to perform ADL's, To increase tolerance to activity/condition/position, To improve performance and independence with ADL's, To decrease level of sup ervision to perform tasks, To improve gait and locomotor functions, To improve health of tissue, To increase flexibility/ROM Functional Training to Include: Gait training For the Purpose of:: To improve gait and locomotor functions Please do not hesitate to contact me at [phone] by phone or if you have questions or concerns regarding this new plan of care! Sincerely, Shamika Shearer, MPT
--- NOTE | 2021-06-06 15:34 | HP.PTREVAL_ITS ---
Dr. Dallas Tomlin, DO, It has been my pleasure to treat ANGEL OLIVER over the last 18 visits for R pes ans bursitis, HS insertion tendonitis, h/o uni TKR on the R, L-DDD. Please see the progress note below for an update on the physical therapy plan of care! Subjective: Pt had no pain anywhere but the next day it was back. Overall her pain is better. Overall her knee is 90% better overall. Her R knee is still numb but compared to what it was she is much better. Somedays she is 100% better. Her back is about 40% better. IF she does anything bending fw she pays for it the rest of the day. She describes the pain as an ache... she puts her knees to her chest and that gives her some relief. She goes to the pool 3X/ week. She is able to walk about 1 mile with no issue which she was not able to do before. Stairs: somedays she can go right up and other days not... not pulling self up like she was. Objective/Function: Stairs: up and down stairs recip with no handrail and not pulling self up the stairs. Gait: walks much straighter with more of an equal stance time on B LE's. Pt feels I with her AT exercises Plan Plan: Pt will do her own I H&W AT program. She will contact me within the month (Jul 07) to see if she still needs additional guidance through PT on pro gression or if her pain gets worse. Hold chart until 07-05-2021. Goals Goal 1:: I HEP Goal Time Frame: 4-6 Weeks Goal Progress: Goal Met Goal 2:: Be able to walk without having R knee pain during her normal ADL's Goal Time Frame: 4-6 Weeks Goal Progress: Goal Met Goal 3:: Increase posture to be able to stand with upright posture ( not shifted away from the R side) Goal Time Frame: 4-6 Weeks Goal Progress: Progressing Goal 4:: Be able to ascend and descend the stairs recip without having to really work to drive through the R LE to ascend the stairs Goal Time Frame: 4-6 Weeks Goal Progress: Goal Met Goal 5:: Decrease overall freq of R knee pain Goal Time Frame: 4-6 Weeks Goal Progress: Goal Met Anticipated Interventions Patient/Client Instruction: Educate patient on: Condition, Plan of Care For the Purpose of:: To decrease pain, To increase ROM, To improve nutrient delivery to tissue, To improve muscle performance and motor function, To improve ability to perform ADL's, To increase tolerance to activity/condition/position, To improve performance and independence with ADL's, To improve gait and locomotor functions, To improve health of tissue, To decrease soft tissue restriction, To increase flexibility/ROM Therapeutic Exercise to Include: Strength training, Endurance training, Body mechanics, Postural training, Flexibilty training, Gait and locomotor training, In an aquatic setting, Passive ROM, Active ROM, Dynamic Lumbar Stabilization For the Purpose of:: To decrease pain, To increase ROM, To improve nutrient delivery to tissue, To improve muscle performance and motor function, To improve ability to perform ADL's, To increase tolerance to activity/condition/position, To improve performance and independence with ADL's, To decrease level of supervision to perform tasks, To improve gait and locomotor functions, To improve health of tissue, To increase flexibility/ROM Functional Training to Include: Gait training For the Purpose of:: To improve gait and locomotor functions Please do not hesitate to contact me at [phone] by phone or if you have questions or concerns regarding this new plan of care! Sincerely, GEORGINA Farley
--- NOTE | 2021-07-06 15:02 | HP.PT.NRP ---
ANGEL OLIVER was seen in my office for initial evaluation on 03/03/21. The following Plan of Care was established for this patient: Initial Frequency: 2x /Week Initial Duration: 6 Weeks Patient/Client Instruction: Educate patient on: Condition, Plan of Care For the Purpose of:: To decrease pain, To increase ROM, To improve nutrient delivery to tissue, To improve muscle performance and motor function, To improve ability to perform ADL's, To increase tolerance to activity/condition/position, To improve performance and independence with ADL's, To improve gait and locomotor functions, To improve health of tissue, To decrease soft tissue restriction, To increase flexibility/ROM Therapeutic Exercise to Include: Strength training, Endurance training, Body mechanics, Postural training, Flexibilty training, Gait and locomotor training, In an aquatic setting, Passive ROM, Active ROM, Dynamic Lumbar Stabilization For the Purpose of:: To decrease pain, To increase ROM, To improve nutrient delivery to tissue, To improve muscle performance and motor function, To improve ability to perform ADL's, To increase tolerance to activity/condition/position, To improve performance and independence with ADL's, To decrease level of supervision to perform tasks, To improve gait and locomotor functions, To improve health of tissue, To increase flexibility/ROM Functional Training to Include: Gait training For the Purpose of:: To improve gait and locomotor functions This patient was last seen in our office 06/06/21. Pertinent comments regarding their Physical therapy will appear below: Spoke to pt and she said she is doing well indep with her exercises. DC PT At this point I will be discontinuing this patient from physical therapy. I would be happy to see this patient again in the future if found appropriate by the physician. Thank you! Shamika Shearer, GEORGINA Balance/Gait/Functional tests - Balance/Special Test Scores Lower Extremity Functional Score: 61
== END 2021-06-06 19:00 | disposition home or self-care (01) ==
LOC: PT 09:30
PROVIDERS: PCP Internal Medicine; Referring Provider Orthopaedic Surgery; Visit Provider Orthopaedic Surgery
DX: M70.51 Other bursitis of knee, right knee (principal); M51.36 Other intervertebral disc degeneration, lumbar region; Z96.659 Presence of unspecified artificial knee joint
CPT/HCPCS: 97113; 97162; 97530

== ENCOUNTER → 2021-08-16 09:41 | Outpatient (CLI) | payer MEDICARE, SELFPAY ==
--- NOTE | 2021-08-16 09:46 | ECHOD_ITS ---
Reason For Study: VALVULAR HEART DISEASE Procedure This was a 2D Doppler, Color Flow transthoracic echocardiogram. The exam was of adequate technical quality. Exam performed in department. Left Ventricle Normal LV size. Left ventricular systolic function is normal. The estimated ejection fraction is 65 %. Diastolic function is indeterminate. No regional wall motion abnormalities noted. Right Ventricle Normal RV size. Normal systolic function. Atria The left atrium is mildly enlarged. Normal right atrium. No doppler evidence for ASD. Mitral Valve There is moderate mitral annular calcification. Extension of the mitral annular calcification on the base of the posterior mitral valve leaflet. Mild (1+) mitral valve insufficiency. Tricuspid Valve Normal tricuspid valve. Mild tricuspid valve insufficiency. Right ventricular systolic pressure estimated to be 31 mmHg. Aortic Valve Trisinus/trileaflet aortic valve. Normal aortic valve. Pulmonic Valve The pulmonic valve is not well visualized. Trivial pulmonic valve insufficiency. Great Vessels Normal sized aortic root. Pericardium/Pleural No pericardial effusion. MMode/2D Measurements & Calculations LVIDd: 4.3 cm IVSd: 0.66 cm Ao root diam: 3.7 cm LVIDs: 2.7 cm LVPWd: 0.81 cm RVDd: 3.3 cm FS: 37.7 % LAV(MOD-bp): 47.5 ml LA A4 area: 16.8 cm2 LA dimension(2D): 3.7 cm LAV(MOD-bp) Indexed: 27.8 ml/m2 LAV(MOD-sp2): 54.4 ml LAV(MOD-sp4): 44.1 ml RA A4 area: 15.8 cm2 Doppler Measurements & Calculations MV E max amaury: 105.8 cm/sec Lat Peak E' Amaury: 6.3 cm/sec Med Peak E' Amaury: 6.2 cm/sec MV A max amaury: 129.5 cm/sec E/E' lat: 16.7 E/E' med: 17.1 MV E/A: 0.82 MV V2 max: 135.1 cm/sec Ao V2 max: 185.7 cm/sec LV V1 max: 152.4 cm/sec MV max P.3 mmHg Ao max P.8 mmHg LV V1 max P.3 mmHg MV V2 mean: 84.2 cm/sec Ao V2 mean: 126.6 cm/sec LV V1 mean P.5 mmHg MV mean P.2 mmHg Ao mean P.4 mmHg LV V1 mean: 99.6 cm/sec MV V2 VTI: 42.1 cm Ao V2 VTI: 37.8 cm LV V1 VTI: 31.9 cm TR max amaury: 262.9 cm/sec MV P1/2t-pr_phl: 118.0 msec TR max P.7 mmHg ECHO/Echo Complete Interpretation Summary Left ventricular systolic function is normal. The estimated ejection fraction is 65 %. The left atrium is mildly enlarged. There is moderate mitral annular calcification. Extension of the mitral annular calcification on the base of the posterior mitr al valve leaflet. Mild (1+) mitral valve insufficiency. Mild tricuspid valve insufficiency. Trivial pulmonic valve insufficiency. Right ventricular systolic pressure estimated to be 31 mmHg. Diastolic function is indeterminate. Ordering Physician: Brad Holguin Referring Physician: BENTLEY MAURO Performed By: Florence Estrada, MICHELLE, RVT
== END ==
PROVIDERS: PCP Internal Medicine; Referring Provider Internal Medicine Cardiovascular Disease; Visit Provider Internal Medicine Cardiovascular Disease
DX: I38 Endocarditis, valve unspecified (principal)
CPT/HCPCS: 93306

== ENCOUNTER → 2021-09-06 13:09 | Outpatient (CLI) | payer MEDICARE, SELFPAY ==
[2021-09-06 15:01] LABS: Absolute Neutrophil Count 3.6 X10^3/uL (2.0-7.7); Basophil# 0.04 X10^3/uL; Basophil% 0.8 % (0-1); Eosinophil# 0.19 X10^3/uL; Eosinophils% 3.9 % (0-5); Hematocrit 34.9 % (37-47); Hemoglobin 11.2 g/dL (12.0-15.0); Lymphocyte % 14.2 % (19-41); Mean Corp Hgb Conc 32.1 g/dL (32-36); Mean Corpuscular Hgb 29.4 pg (27.0-32.0); Mean Corpuscular Volume 91.6 fL (81-99); Mean Platelet Vol. 11.2 fl (6.2-12.0); Monocyte# 0.42 X10^3/uL; Monocyte% 8.5 % (0-10); NRBC Flagged by Analyzer 0 % (0-5); Neutrophil # 3.55 X10^3/uL (2.7-7.7); Neutrophil % 72.2 % (47-70); Platelet Count 232 K/mm3 (150-450); RBC Distribution Width CV 12.7 % (11.6-14.6); RBC Distribution Width SD 42.9 fl (35.1-43.9); Red Blood Count 3.81 M/mm3 (4.2-5.4); White Blood Count 4.9 K/mm3 (4.4-11.0)
[2021-09-06 15:16] LABS: Bilirubin, Direct 0.12 mg/dL (0.00-0.30)
[2021-09-06 15:20] LABS: ALB/GLOB Ratio 0.9 RATIO (0.9-2.4); AST(SGOT) 17 U/L (15-37); Alanine Aminotransfer ALT/SGPT 19 U/L (13-56); Albumin, Serum 3.5 g/dL (3.2-5.0); Alkaline Phosphatase 58 U/L (45-117); Anion Gap 7 (5-15); BUN 9 mg/dL (7-18); BUN/Creat Ratio 11.5 RATIO (10-20); Calcium,Total 9.1 mg/dL (8.5-10.1); Chloride 103 mmol/L (98-107); Creatinine, Serum 0.78 mg/dL (0.55-1.02); EST Glomerular Filtration Rate 75 mL/min (>60); Est Glom Filt Rate - Afr Amer 91 mL/min (>60); Globulin 3.8 g/dL (2.2-4.2); Glucose 111 mg/dL (74-106); Lipase 128 U/L (73-393); Potassium 3.4 mmol/L (3.5-5.1); Protein, Total 7.3 g/dL (6.4-8.2); Sodium Level 140 mmol/L (136-145)
== END ==
PROVIDERS: PCP Internal Medicine; Referring Provider Internal Medicine Gastroenterology; Visit Provider Internal Medicine Gastroenterology
DX: R10.13 Epigastric pain (principal); R11.2 Nausea with vomiting, unspecified; R19.4 Change in bowel habit
CPT/HCPCS: 36415; 80053; 82247; 82248; 83690; 85025

== ENCOUNTER → 2021-09-15 14:59 | Outpatient (CLI) | payer MEDICARE, SELFPAY ==
--- NOTE | 2021-09-15 15:01 | CT_ITS ---
STUDY: CT ABDOMEN AND PELVIS WITH CONTRAST REASON FOR EXAM: Female, 81 years old. EPIGASTRIC PAIN, reflux, vomiting RADIATION DOSAGE (If Supplied By Facility): CTDIvol = ( 15.76 ) mGy, DLP = ( 904.24 ) mGycm TECHNIQUE: Transaxial images were obtained from the dome of the diaphragm to the symphysis pubis without oral contrast. Oral and amp; IV Readi-CAT and amp; 100mL Isovue-300 was administered. Sagittal and coronal images were reconstructed. Individualized dose optimization techniques were used for this CT. COMPARISON: None. FINDINGS: Left lower lung calcified granulomas. The visualized portions of the heart are within normal limits. Normal liver. Small liver cysts. There are surgical clips in the gallbladder fossa consistent with a prior cholecystectomy. Normal spleen. Normal pancreas. Normal bilateral adrenal glands. Normal right kidney. Normal left kidney. Normal visualized stomach. 1.4 cm duodenal fourth segment diverticulum. Normal small intestine. Enteric contrast reaches the cecum. There are multiple colonic diverticula consistent with diverticulosis. The appendix is visualized and appears normal. Normal abdominal aorta. Normal inferior vena cava. Normal retroperitoneum. Normal urinary bladder. There is absence of the uterus consistent with a prior hysterectomy. Normal abdominal wall. Normal osseous structures. CT/Abdomen/Pelvis WITH Contrast IMPRESSION: No acute abnormal finding in the abdomen or pelvis. No finding of obstruction. 1.4 cm duodenal diverticulum. Electronically Signed: Brad Lester MD at 23:08 EDT Tel , Service support ,
== END ==
PROVIDERS: PCP Internal Medicine
DX: R10.30 Lower abdominal pain, unspecified (principal); R10.13 Epigastric pain; R11.2 Nausea with vomiting, unspecified
CPT/HCPCS: 74177; Q9967

== ENCOUNTER 2021-09-30 09:30 | Outpatient (RCR) | payer MEDICARE, SELFPAY ==
--- NOTE | 2021-09-02 10:12 | HP.PTEVAL ---
Patient's Visit Information ANGEL OLIVER is a 81 year old F referred to Physical Therapy by Dr. Dallas Tomlin DO with a diagnosis of R rotator cuff tendonitis, biceps tendonitis. Date of Evaluation: 09/02/21 Physical Therapist: Sherif Richter PT, ATC - Visit Plan Frequency: 2-3x /Week Duration: 4-6 Weeks Plan: R shoulder rot cuff strengthening, scap stab ex's, UBE, and HEP - Subjective Pt reports R shoulder has been sore for more than 4 mos. Pt reports her pain had an insidious onset in nature. Pt reports she has pain in the biceps region as well as her shoulder. Pt notes any reaching out in front of her or behind her increases pain. Pt also notes any overhead lifting increases her pain. Pt is R hand dominant. Pt has had a recent xray which revealed no significant findings. Pt denies tingling or numbness at this time. Pt reports occasional sleep difficulty at this time. Pt reports she is unable to open a jar at this time secondary to pain. 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 Pt currently reports her R shoulder pain is 3/10, but increases to 6/10 at worst (lifiting heavy jars out of cabinet) - Pain R shoulder Pain Intensity (Out of 10): 3 Pain Intensity Range: 6 - Objective Neuro: B UE sensation is WNL to light touch. B bicepital reflex= 2/3. Palpation: Pt is very tender throughout the LHB and supraspinatus tendons. No obvious deformities present at this time. ROM: L shoulder flex= 145, abd= 145, ER= 55, IR WNL; R shoulder flex= 105, abd= 80, ER= 55, IR moderately limited. MMT: L shoulder is 5/5 throughout, while R shoulder is 3+/5 and painful. Special test: Pos empty can test and speeds test - Balance/Special Test Scores Quick DASH Score: 43.1800 - Goals Goal 1:: Decrease R shoulder pain x 50% to aid with sleep Goal Time Frame: 4-6 Weeks Goal 2:: Increase R shoulder flex and abd ROM x 30 degrees to aid with overhead activity Goal Time Frame: 4-6 Weeks Goal 3:: Increase R shoulder strength x 1 grade to aid with IADL's Goal Time Frame: 4-6 Weeks Goal 4:: I with HEP Goal Time Frame: 4-6 Weeks - Rehabilitation Potential Physical Therapy Diagnosis: Pt has R shoulder pain, weakness, and limited ROM secondary to R shoulder rot cuff syndrome Rehabilitation Potential: Good - Anticipated Interventions Patient/Client Instruction: Educate patient on: Condition, Plan of Care For the Purpose of:: To improve self management Therapeutic Exercise to Include: Strength training, Endurance training, Flexibilty training, Active ROM, Scapular Strength/Stabilization For the Purpose of:: To decrease pain, To increase ROM, To improve muscle performance and motor function Cryotherapy (ice pack, ice massage): Yes For the Purpose of:: To decrease pain Thank you for the opportunity to evaluate your patient. For Medicare and Medicare HMO plans, please review the plan of care and approve it. It will need to be FAXED BACK to us at [phone] for Medicare purposes. For Medicare only, by signing this I certify the plan of care. Please let me know if there are questions or concerns regarding this plan of care. Physician Signature: Date:
--- NOTE | 2021-09-30 09:53 | HP.PTDCSUM ---
It has been my pleasure to treat ANGEL OLIVER referred by Dr. Dallas Tomlin DO, with the diagnosis of R rotator cuff tendonitis, biceps tendonitis for a total of 9 visit(s). Discharge Date: Please see the following information for a summary of their discharge status. Subjective: Pt reports her pain is definitely less now R shoulder Pain Intensity (Out of 10): 2 % Improvement: 40 Objective/Function: R shoulder pain is 2/10. R shoulder strength is 5/5 with exception to abd= 3+/5 and is limited by pain. R shoulder ROM: flex= 140, abd= 110. Pt is I with HEP Goal 1:: Decrease R shoulder pain x 50% to aid with sleep Goal Progress: Goal Met Goal 2:: Increase R shoulder flex and abd ROM x 30 degrees to aid with overhead activity Goal 3:: Increase R shoulder strength x 1 grade to aid with IADL's Goal 4:: I with HEP Goal Progress: Goal Met Plan: DC to HEP If there are questions or concerns regarding this patient's physical therapy, please feel free to call me at [phone]. Thank you for the referral of this patient. Sincerely, Sherif Richter, PT, ATC Balance/Gait/Functional tests - Balance/Special Test Scores Quick DASH Score: 27.2722
== END 2021-09-30 10:32 | disposition home or self-care (01) ==
LOC: PT 09:30
PROVIDERS: PCP Internal Medicine; Referring Provider Orthopaedic Surgery; Visit Provider Orthopaedic Surgery
DX: M75.21 Bicipital tendinitis, right shoulder (principal); M25.811 Other specified joint disorders, right shoulder
CPT/HCPCS: 97110; 97161; 97164

== ENCOUNTER → 2021-10-07 07:14 | Outpatient (CLI) | payer MEDICARE, SELFPAY ==
[2021-10-07 10:30] LABS: AST(SGOT) 16 U/L (15-37); Alanine Aminotransfer ALT/SGPT 20 U/L (13-56); Albumin, Serum 2.6 g/dL (3.2-5.0); Alkaline Phosphatase 86 U/L (45-117); Bilirubin, Direct 0.08 mg/dL (0.00-0.30); Cholesterol 149 mg/dL (200); Globulin 4.6 g/dL (2.2-4.2); High Density Lipoprotein 46 mg/dL; Protein, Total 7.2 g/dL (6.4-8.2); Triglycerides 66 mg/dL; Very Low Density Lipoprotein 13 mg/dL (5-40)
== END ==
PROVIDERS: PCP Internal Medicine; Visit Provider Internal Medicine Cardiovascular Disease
DX: E78.5 Hyperlipidemia, unspecified (principal)
CPT/HCPCS: 36415; 80061; 80076

== ENCOUNTER 2021-11-28 09:24 | Outpatient (CLI) | payer MEDICARE, SELFPAY ==
[2021-11-28 10:11] LABS: Absolute Lymphocyte Count 0.52 X10^3/uL (0.83-4.51); Absolute Neutrophil Count 1.9 X10^3/uL (2.0-7.7); Basophil# 0.01 X10^3/uL; Basophil% 0.4 % (0-1); Eosinophil# 0.07 X10^3/uL; Eosinophils% 2.5 % (0-5); Hematocrit 33.9 % (37-47); Hemoglobin 11.1 g/dL (12.0-15.0); Lymphocyte # 0.52 X10^3/ul (0.83-4.51); Lymphocyte % 18.8 % (19-41); Mean Corp Hgb Conc 32.7 g/dL (32-36); Mean Corpuscular Hgb 28.9 pg (27.0-32.0); Mean Corpuscular Volume 88.3 fL (81-99); Mean Platelet Vol. 10.5 fl (6.2-12.0); Monocyte# 0.31 X10^3/uL; Monocyte% 11.2 % (0-10); NRBC Flagged by Analyzer 0 % (0-5); Neutrophil # 1.85 X10^3/uL (2.7-7.7); Neutrophil % 66.7 % (47-70); POSITIVE DIFFERENTIAL YES; Platelet Count 170 K/mm3 (150-450); RBC Distribution Width SD 44.9 fl (35.1-43.9); Red Blood Count 3.84 M/mm3 (4.2-5.4); White Blood Count 2.8 K/mm3 (4.4-11.0)
[2021-11-28 10:13] LABS: Differential Indicated SCAN CRITERIA MET
[2021-11-28 10:47] LABS: Vitamin B12 523 pg/mL (211-911)
[2021-11-28 11:19] LABS: Ferritin 128 ng/mL (8-252); Iron 63 ug/dL (50-170); Iron Binding Capacity,Total 305 ug/dL (250-450); PERCENT IRON SATURATION 20.7 % (15.0-55.0)
[2021-11-28 13:51] LABS: Pathologist Review Reviewed
[2021-11-29 17:07] LABS: Endomysial Antibody IgA Negative (Negative)
[2021-11-29 18:36] LABS: Immunoglobulin A 303 mg/dL (64-422); t-Transglutaminase IgA <2 U/mL (0-3)
== END 2021-11-28 23:59 | disposition short-term general hospital (02) ==
LOC: MTLAB 09:27
PROVIDERS: PCP Internal Medicine; Referring Provider Internal Medicine Gastroenterology; Visit Provider Internal Medicine Gastroenterology
DX: D64.9 Anemia, unspecified (principal)
CPT/HCPCS: 36415; 82607; 82728; 82746; 82784; 83516; 83540; 83550; 85025; 86255

== ENCOUNTER 2021-11-30 17:20 | Outpatient (CLI) | payer MEDICARE, SELFPAY ==
[2021-11-30 17:43] VITALS: BP 138/75; PULSE 56; RESP 16; TEMP 36.8; O2SAT 100; BMI 25.2
[2021-11-30 18:19] VITALS: BP 133/77; PULSE 70; RESP 16; TEMP 37; O2SAT 100
[2021-11-30 19:19] VITALS: BP 145/90; PULSE 70; RESP 16; TEMP 37.2; O2SAT 100
== END 2021-11-30 23:59 | disposition home or self-care (01) ==
LOC: MS3OUT 17:20 → MS3 17:21
PROVIDERS: PCP Internal Medicine; Referring Provider Nurse Practitioner Adult Health; Visit Provider Nurse Practitioner Adult Health
DX: U07.1 COVID-19 (principal)
CPT/HCPCS: J7050; M0243; Q0244

== ENCOUNTER → 2022-06-01 | Outpatient (CLI) | payer MEDICARE, SELFPAY ==
--- NOTE | 2022-06-01 12:25 | BI_ITS ---
MAMMOGRAPHY - BILATERAL SCREENING REASON FOR EXAM: Female, 82 years old. Routine annual screening examination. PERTINENT HISTORY: Non-contributory. TECHNIQUE: Digital bilateral breast yeison (3D mammographic acquisition) in the CC and MLO projections. 2-D mediolateral oblique (MLO) and craniocaudad (CC) views of both breasts were obtained. CAD: Full Field Digital Mammography with Computer Added Detection was performed. COMPARISON: Comparison is made with prior study dated 05/26/2021 and 05/25/2020. FINDINGS: Breast Composition: The breasts are heterogeneously dense, which may obscure small masses. There are no dominant masses or suspicious calcifications. Stable small benign-appearing bilateral axillary lymph nodes. No other significant abnormalities are identified. There has been no significant change since the prior study. BI/SCRN MAMM (CAD)W/YEISON BILAT IMPRESSION: Stable bilateral screening mammogram. Yearly follow-up mammogram recommended. (A) ASSESSMENT CATEGORY: BIRADS Category 2: Benign. A letter regarding these results will be sent to the patient by the facility within 30 days. Approximately 10% of breast cancers are not detected by mammography. A normal mammogram should not delay biopsy of a clinically suspicious abnormality. [id number] Electronically Signed: Ian Bhatia MD at 13:13 EDT ,
== END | disposition home or self-care (01) ==
LOC: OPBI 12:24
PROVIDERS: PCP Internal Medicine; Visit Provider Internal Medicine
DX: Z12.31 Encounter for screening mammogram for malignant neoplasm of breast (principal)
CPT/HCPCS: 77063; 77067

== ENCOUNTER → 2022-06-19 | Outpatient (CLI) | payer MEDICARE, SELFPAY ==
[2022-06-19 12:19] LABS: Absolute Lymphocyte Count 0.76 X10^3/uL (0.83-4.51); Absolute Neutrophil Count 3.8 X10^3/uL (2.0-7.7); Basophil# 0.02 X10^3/uL; Basophil% 0.4 % (0-1); Eosinophil# 0.05 X10^3/uL; Hematocrit 33.1 % (37-47); Hemoglobin 10.8 g/dL (12.0-15.0); Lymphocyte # 0.76 X10^3/ul (0.83-4.51); Mean Corp Hgb Conc 32.6 g/dL (32-36); Mean Corpuscular Hgb 29.7 pg (27.0-32.0); Mean Corpuscular Volume 90.9 fL (81-99); Mean Platelet Vol. 10.4 fl (6.2-12.0); Monocyte# 0.42 X10^3/uL; Monocyte% 8.3 % (0-10); NRBC Flagged by Analyzer 0 % (0-5); Neutrophil # 3.79 X10^3/uL (2.7-7.7); Neutrophil % 74.7 % (47-70); Platelet Count 232 K/mm3 (150-450); RBC Distribution Width CV 12.7 % (11.6-14.6); RBC Distribution Width SD 42.1 fl (35.1-43.9); Red Blood Count 3.64 M/mm3 (4.2-5.4); White Blood Count 5.1 K/mm3 (4.4-11.0)
[2022-06-19 12:38] LABS: AST(SGOT) 16 U/L (15-37); Alanine Aminotransfer ALT/SGPT 20 U/L (13-56); Albumin, Serum 3.5 g/dL (3.2-5.0); Alkaline Phosphatase 48 U/L (45-117); Bilirubin, Direct 0.13 mg/dL (0.00-0.30); Globulin 3.3 g/dL (2.2-4.2); Protein, Total 6.8 g/dL (6.4-8.2)
== END | disposition home or self-care (01) ==
PROVIDERS: PCP Internal Medicine; Referring Provider Dermatology; Visit Provider Dermatology
DX: L43.8 Other lichen planus (principal); R20.8 Other disturbances of skin sensation; K11.7 Disturbances of salivary secretion; B37.2 Candidiasis of skin and nail; Z79.899 Other long term (current) drug therapy
CPT/HCPCS: 36415; 80076; 85025

== ENCOUNTER → 2022-08-31 | Outpatient (CLI) | payer MEDICARE, SELFPAY ==
--- NOTE | 2022-08-31 07:11 | MRI_ITS ---
STUDY: MRI LUMBAR SPINE WITH AND WITHOUT CONTRAST REASON FOR EXAM: Female, 82 years old. low back pain several months no injury TECHNIQUE: Standardized fat and water weighted pulse sequences were obtained in the sagittal and axial planes. 13cc iv clariscan was administered for the contrast portion of the examination. COMPARISON: Lumbar spine radiographs August [address] lumbar spine September 15, 2021 FINDINGS: Prior laminectomy L4-L5. Disc spacer at L4-5. No fracture or acute compression deformity. Diffuse endplate degenerative change at T12-L1. Mild chronic anterior vertebral height loss L2 and L3. Diffuse endplate degenerative change. No aggressive osseous lesion. T12-L1: Small posterior disc protrusion with minimal spinal canal and bilateral neural foraminal narrowing. L1-2: Small circumferential disc bulge most prominent left subarticular with mild spinal canal narrowing. Bilateral moderate facet arthropathy. Together findings cause moderate left and mild right neural foraminal narrowing. L2-3: Small posterior disc protrusion with mild facet arthropathy together causing mild spinal canal narrowing. Moderate left and mild right neural foraminal narrowing. L3-4: Small posterior disc protrusion. Degenerative retrolisthesis L3 on L4 secondary to severe bilateral facet arthropathy. Together the findings cause mild spinal canal narrowing. Severe right and left neural foraminal narrowing. L4-5. Prior discectomy and laminectomy. Severe bilateral facet arthropathy. No central spinal stenosis status post decompression. Mild left and likely moderate right neural foraminal stenosis. L5-S1: Normal endplates. Normal disc height, hydration and morphology. Normal bilateral facet joints. Normal central canal and bilateral lateral recesses. Normal bilateral intervertebral neural foramina. Normal visualized sacral ala. Normal visualized paraspinous soft tissue structures. MRI/Spine Lumbar W/WO Contrast IMPRESSION: Spondylosis and prior lower lumbar laminectomy and discectomy. No evidence of critical spinal canal stenosis. Multilevel neural foraminal narrowing as above. Electronically Signed: Clint Beckman MD at 7:14 EDT ,
[2022-08-31 08:05] LABS: CREATININE FINGERSTICK < 0.9 mg/dL (0.55-1.02); EGFR FINGERSTICK > 60.0000 mL/min (>60)
== END | disposition home or self-care (01) ==
LOC: MRI 07:11
PROVIDERS: PCP Internal Medicine; Visit Provider Orthopaedic Surgery
DX: M54.50 Low back pain, unspecified (principal)
CPT/HCPCS: 72158; A9575

== ENCOUNTER → 2022-10-03 | Outpatient (CLI) | payer MEDICARE, SELFPAY | END | disposition home or self-care (01) | LOC: MTLAB 09:48 | PROVIDERS: PCP Internal Medicine; Referring Provider Internal Medicine Cardiovascular Disease; Visit Provider Internal Medicine Cardiovascular Disease | DX: E78.5 Hyperlipidemia, unspecified (principal) | CPT/HCPCS: 80061; 80076 ==

== ENCOUNTER → 2022-10-05 | Outpatient (CLI) | payer MEDICARE, SELFPAY ==
[2022-10-05 10:30] LABS: AST(SGOT) 18 U/L (15-37); Alanine Aminotransfer ALT/SGPT 25 U/L (13-56); Albumin, Serum 3.7 g/dL (3.2-5.0); Alkaline Phosphatase 53 U/L (45-117); Bilirubin, Direct 0.13 mg/dL (0.00-0.30); Cholesterol 242 mg/dL (200); Globulin 3.2 g/dL (2.2-4.2); High Density Lipoprotein 100 mg/dL; Protein, Total 6.9 g/dL (6.4-8.2); Triglycerides 74 mg/dL; Very Low Density Lipoprotein 15 mg/dL (5-40)
== END | disposition home or self-care (01) ==
LOC: MTLAB 09:17
PROVIDERS: PCP Internal Medicine; Referring Provider Internal Medicine Cardiovascular Disease; Visit Provider Internal Medicine Cardiovascular Disease
DX: E78.5 Hyperlipidemia, unspecified (principal)
CPT/HCPCS: 36415; 80061; 80076

== ENCOUNTER → 2023-01-08 | Outpatient (CLI) | payer MEDICARE, SELFPAY ==
[2023-01-08 12:49] LABS: AST(SGOT) 19 U/L (15-37); Alanine Aminotransfer ALT/SGPT 27 U/L (13-56); Albumin, Serum 3.6 g/dL (3.2-5.0); Alkaline Phosphatase 43 U/L (45-117); Bilirubin, Direct 0.13 mg/dL (0.00-0.30); Cholesterol 272 mg/dL (200); Globulin 3.3 g/dL (2.2-4.2); Glucose 95 mg/dL (74-106); High Density Lipoprotein 110 mg/dL; Protein, Total 6.9 g/dL (6.4-8.2); Triglycerides 84 mg/dL; Very Low Density Lipoprotein 17 mg/dL (5-40)
[2023-01-08 12:50] LABS: Hemoglobin A1c 5.3 % (3.8-5.6)
== END | disposition home or self-care (01) ==
LOC: MTLAB 09:23
PROVIDERS: PCP Internal Medicine; Referring Provider Internal Medicine Cardiovascular Disease; Visit Provider Internal Medicine Cardiovascular Disease
DX: R35.0 Frequency of micturition (principal); I34.0 Nonrheumatic mitral (valve) insufficiency; I36.1 Nonrheumatic tricuspid (valve) insufficiency; E78.00 Pure hypercholesterolemia, unspecified; Z86.79 Personal history of other diseases of the circulatory system
CPT/HCPCS: 36415; 80061; 80076; 82947; 83036

== ENCOUNTER → 2023-02-08 | Outpatient (CLI) | payer MEDICARE, SELFPAY ==
[2023-02-08 12:17] LABS: Absolute Lymphocyte Count 0.72 X10^3/uL (0.83-4.51); Absolute Neutrophil Count 5.5 X10^3/uL (2.0-7.7); Basophil# 0.01 X10^3/uL; Basophil% 0.1 % (0-1); Eosinophil# 0.02 X10^3/uL; Eosinophils% 0.3 % (0-5); Hematocrit 35.9 % (37-47); Hemoglobin 11.9 g/dL (12.0-15.0); Lymphocyte # 0.72 X10^3/ul (0.83-4.51); Lymphocyte % 10.4 % (19-41); Mean Corp Hgb Conc 33.1 g/dL (32-36); Mean Corpuscular Hgb 30.9 pg (27.0-32.0); Mean Corpuscular Volume 93.2 fL (81-99); Mean Platelet Vol. 10.3 fl (6.2-12.0); Monocyte# 0.63 X10^3/uL; Monocyte% 9.1 % (0-10); NRBC Flagged by Analyzer 0 % (0-5); Neutrophil # 5.49 X10^3/uL (2.7-7.7); Neutrophil % 79.5 % (47-70); Platelet Count 293 K/mm3 (150-450); RBC Distribution Width CV 13.7 % (11.6-14.6); RBC Distribution Width SD 46.6 fl (35.1-43.9); Red Blood Count 3.85 M/mm3 (4.2-5.4); White Blood Count 6.9 K/mm3 (4.4-11.0)
[2023-02-08 12:47] LABS: AST(SGOT) 17 U/L (15-37); Alanine Aminotransfer ALT/SGPT 26 U/L (13-56); Albumin, Serum 3.7 g/dL (3.2-5.0); Alkaline Phosphatase 44 U/L (45-117); Bilirubin, Direct 0.26 mg/dL (0.00-0.30); Cholesterol 175 mg/dL (200); High Density Lipoprotein 111 mg/dL; Protein, Total 6.7 g/dL (6.4-8.2); Triglycerides 54 mg/dL; Very Low Density Lipoprotein 11 mg/dL (5-40)
== END | disposition home or self-care (01) ==
LOC: MTLAB 09:15
PROVIDERS: PCP Internal Medicine; Referring Provider Internal Medicine Cardiovascular Disease; Visit Provider Internal Medicine Cardiovascular Disease
DX: Z79.899 Other long term (current) drug therapy (principal)
CPT/HCPCS: 36415; 80061; 80076; 85025

== ENCOUNTER → 2023-04-26 | Outpatient (CLI) | payer MEDICARE, SELFPAY ==
--- NOTE | 2023-04-26 09:01 | RAD_ITS ---
STUDY: X-RAY CHEST REASON FOR EXAM: Female, 82 years old. COPD. Follow-up. TECHNIQUE: Frontal and lateral views of the chest. COMPARISON: December 2016. FINDINGS: Hyperinflation with scattered healed parenchymal granulomatous calcifications, unchanged. Stable cardiomegaly with aortic tortuosity and calcification. Diffuse thoracic osteopenia with spondylosis. No abnormality of the visualized soft tissue structures of the upper abdomen. RAD/Chest PA and Lateral IMPRESSION: Stable chest with no acute superimposed finding. Electronically Signed: Jan White MD at 11:10 EDT ,
== END | disposition home or self-care (01) ==
LOC: RAD 08:57
PROVIDERS: PCP Internal Medicine; Referring Provider Otolaryngology; Visit Provider Otolaryngology
DX: J44.9 Chronic obstructive pulmonary disease, unspecified (principal)
CPT/HCPCS: 71046

== ENCOUNTER → 2023-06-05 | Outpatient (CLI) | payer MEDICARE, SELFPAY ==
--- NOTE | 2023-06-05 08:23 | BI_ITS ---
MAMMOGRAPHY - BILATERAL SCREENING REASON FOR EXAM: Female, 83 years old. Routine annual screening examination. PERTINENT HISTORY: Non-contributory. TECHNIQUE: Digital bilateral breast yeison (3D mammographic acquisition) in the CC and MLO projections. 2-D mediolateral oblique (MLO) and craniocaudad (CC) views of both breasts were obtained. CAD: Full Field Digital Mammography with Computer Added Detection was performed. COMPARISON: Comparison is made with prior study dated June 01, 2022 and May 26, 2021. FINDINGS: Breast Composition: The breasts are heterogeneously dense, which may obscure small masses. There are no dominant masses or suspicious calcifications. No other significant abnormalities are identified. There has been no significant change since the prior study. BI/SCRN MAMM (CAD)W/YEISON BILAT IMPRESSION: Stable bilateral screening mammogram. Yearly follow-up mammogram recommended. (A) ASSESSMENT CATEGORY: BIRADS Category 1: Negative. A letter regarding these results will be sent to the patient by the facility within 30 days. Approximately 10% of breast cancers are not detected by mammography. A normal mammogram should not delay biopsy of a clinically suspicious abnormality. [id number] Electronically Signed: Ian Bhatia MD at 9:42 EDT ,
== END | disposition home or self-care (01) ==
LOC: OPBI 08:22
PROVIDERS: PCP Internal Medicine; Referring Provider Internal Medicine; Visit Provider Internal Medicine
DX: Z12.31 Encounter for screening mammogram for malignant neoplasm of breast (principal)
CPT/HCPCS: 77063; 77067

== ENCOUNTER → 2023-10-15 | Outpatient (CLI) | payer MEDICARE, SELFPAY ==
[2023-10-15 11:20] LABS: AST(SGOT) 17 U/L (15-37); Alanine Aminotransfer ALT/SGPT 20 U/L (13-56); Albumin, Serum 3.6 g/dL (3.2-5.0); Alkaline Phosphatase 63 U/L (45-117); Cholesterol 161 mg/dL (200); Globulin 3.5 g/dL (2.2-4.2); High Density Lipoprotein 102 mg/dL; Protein, Total 7.1 g/dL (6.4-8.2); Triglycerides 46 mg/dL; Very Low Density Lipoprotein 9 mg/dL (5-40)
== END | disposition home or self-care (01) ==
LOC: MTLAB 09:38
PROVIDERS: PCP Family Medicine; Referring Provider Physician Assistant Medical; Visit Provider Physician Assistant Medical
DX: E78.00 Pure hypercholesterolemia, unspecified (principal)
CPT/HCPCS: 36415; 80061; 80076

== ENCOUNTER → 2023-12-18 | Outpatient (CLI) | payer MEDICARE, SELFPAY ==
--- NOTE | 2023-12-18 | SKIN_PTH ---
PATHOLOGY RESULTS PATIENT: ANGEL OLIVER LOC: [facility]#:[id number] AGE/SX: 83/F ROOM: RE12/18/[address]: Dr. Elena Allen DPM : 1940 BED: DIS: 12/18/2023 SPEC #: [id number] RECD: 12/18/23 12:20 STATUS: RUBI JOEL #: [id number] TAY: 12/18/23 00:[address]: Elena Allen DEPT: SURGICAL PATHOLOGY RECD BY: Marquita Fournier ENTERED: 12/18/23 12:21 SP TYPE: SKIN OTHR DR: Gardenia Blackwood DO Tissues: Skin of foot, NOS Procedures: Surgery Specimen Level IV HEADER OPERATION: Skin biopsy PRE-OP DIAGNOSIS: Left foot D49.2, M79.672 TISSUE SUBMITTED: Left foot skin biopsy MICROSCOPIC DIAGNOSIS Left foot skin, punch biopsy: Squamous cell carcinoma. See comment. SJ:hakan 12/19/2023 COMMENT The lesion also shows superficial ulceration and associated inflammation. The lesion predominantly consists of squamous carcinoma in situ, invasive carcinoma cannot be ruled out. Complete excision of the lesion is necessary for definite classification. Case has been reviewed in consultation with Dr. Cruz who concurs with the above diagnosis. IDC:AM MICROSCOPIC DESCRIPTION Slides are reviewed. GROSS DESCRIPTION Received in fixative is one container labeled with the patient's name and designated left foot biopsy. The specimen consists of a punch biopsy of lew-white skin measuring 0.2 cm in diameter and 0.2 cm in length. The specimen is totally submitted in one cassette. / ANNAMARIA:hakan 12/18/2023 TC:0 CPT: 11460
--- OUTSIDE RECORDS SUMMARY | 2023-12-18 12:41 | XMS RPT_ITS | CCD ---
Author Name Unknown Address [address] [place] [address] [facility] Team Providers Care Scout Name Role Phone Alexandra Mercado Unavailable Unavailable Carlo Burch MD Unavailable Muoh, Fanta Noreen Unavailable Unavailable Sherif Marshall Unavailable Unavailable JODI MEADE Unavailable Unavailable HoSherif rangel Unavailable Unavailable Buczek, Valente Tato Unavailable Unavailable Buczek, Valente Tato Unavailable Unavailable Muoh, Fanta Noreen Unavailable Unavailable HoynesSherifel Unavailable Unavailable Vanesa, Raquel Unavailable Gravius, Clarita Unavailable Unavailable Messenger, Arlene Unavailable Unavailable Unavailable Unavailable Gravius, Clarita Unavailable Unavailable Messenger, Arlene Unavailable Unavailable Slarb, Shamika Unavailable Unavailable Vanesa DO, Raquel Unavailable [phone] Messenger Arlene KIDD Unavailable Unavailable Gravius REHABILITATION TEACHER, Clarita Unavailable Unavailable Slarb DESK OPERATOR, Shamika Unavailable Unavailable Unavailable Unavailable Pascale Warner LPN Unavailable Unavailable Julio Wang LPN Unavailable Unavailable Ciesa STEVE, Savannah Unavailable Vanesa DO, Raquel Unavailable Ciesa, Omaira Unavailable Ciesa, Omaira Unavailable Coco Maria LPN Unavailable Unavailable Sahara Hardy MA Unavailable Unavailable Giselle Almeida CNP Unavailable [phone] Vanesa DO, Raquel Unavailable Sahara Hardy MA Unavailable Unavailable Joel Burleson CMA Unavailable Unavailable Julio Wang LPN Unavailable Unavailable Gravius REHABILITATION TEACHER, Clarita Unavailable Unavailable Edwina RN, Arlene Unavailable Unavailable Slarb DESK OPERATOR, Shamika Unavailable Unavailable Omaira Prince Unavailable Juan Pablo STEVE, Giselle Unavailable [phone] Unavailable Unavailable Raquel Mauro DO Attending Unavailable Raquel Mauro DO Consulting Unavailable He DESK OPERATOR, Александр Unavailable Unavailable Manchak REHABILITATION TEACHER, Venita Unavailable Unavailable Allergies Allergy Classification Reported Allergen(s) Allergy Type Date of Onset Reaction(s) Facility Amitriptyline (4 sources) Amitriptyline; Translations: [Amitriptyline HCl *ANTIDEPRESSANTS *] Drug Allergy [facility] Work Phone: Corticosteroids (4 sources) Hydrocortisone; Translations: [Cortizone-10 *DERMATOLOGICALS *] Drug Allergy [facility] Work Phone: Medications Current Medications Medication Drug Class(es) Dates Sig (Normalized) Sig (Original) amLODIPine 5 mg oral tablet (20 sources) Dihydropyridine Calcium Channel Jessica Start: 08-31-2023 Completed/Discontinued Medications Medication Drug Class(es) Dates Sig (Normalized) Sig (Original) acetaminophen 250 mg / aspirin 250 mg / caffeine 65 mg oral tablet (20 sources) Platelet Aggregation Inhibitor, Nonsteroidal Anti-inflammatory Drug, Central Nervous System Stimulant, Methylxanthine Start: 04-12-2016 End: 04-21-2020 amitriptyline hydrochloride 50 mg oral tablet (20 sources) Tricyclic Antidepressant Start: 09-12-2018 End: 09-12-2018 Problems Active Problems Problem Classification Problem Date Documented Da te Episodic/Chronic Conduction disorders (8 sources) Pulse missed beats; Translations: [Skipped heart beats] 04-13-2023 Chronic Congestive heart failure; nonhypertensive (20 sources) Left ventricular diastolic dysfunction ; Translations: [Diastolic dysfunction, left ventricle] 03-13-2019 Chronic Deficiency and other anemia (20 sources) Anemia; Translations: [Anemia] 03-13-2019 Episodic Past or Other Problems Problem Classification Problem Date Documented Da te Episodic/Chronic Administrative/social admission (20 sources) Pneumococcal vaccination given; Translations: [Medical examinations/report s status] 04-26-2018 Episodic Congestive heart failure; nonhypertensive (2 sources) Diastolic dysfunction; Translations: [Heart disease, unspecified] Onset: 01-03-2017 01-03-2017 Episodic Other circulatory disease (2 sources) Carotid bruit; Translations: [Other specified symptoms and signs involving the circulatory and respiratory systems] Onset: 09-27-2017 09-27-2017 Episodic Other lower respiratory disease (2 sources) Dyspnea; Translations: [Shortness of breath] Onset: 01-04-2017 01-04-2017 Episodic Residual codes; unclassified (18 sources) Increased body mass index; Translations: [BMI 29.0-29.9,adult] Resolved: 01-25-2017 04-26-2017 Episodic Residual codes; unclassified (20 sources) Needs influenza immunization; Translations: [Need for prophylactic vaccination and inoculation against influenza (Renamed from Need for immunization against influenza)] 03-13-2019 Episodic Unclassified (20 sources) Annual Medicare Phyiscal WITHOUT abnormal findings (Renamed from Encounter for general adult medical examination without abnormal findings); Translations: [Patient encounter status] 04-26-2017 Unclassified (20 sources) Abortions/Miscarria ges; Translations: [Abortions/Miscarri ages] 03-13-2019 Results Test Name Value Interpretation Reference Range Facil ity Vital Signs Date Time Vital Sign Value Performing Clinician Facility 01-04-2023 09:47-0500 Body height 160.02 cm Shamika Reynolds LPN [facility]; [facility] Work Phone: 01-04-2023 09:47-0500 Body mass index (BMI) [Ratio] 27.81 kg/m2 Shamika Reynolds LPN [facility]; [facility] Work Phone: 01-04-2023 09:47-0500 Body surface area Derived from formula 1.74 m2 Shamika Reynolds LPN [facility]; [facility] Work Phone: 01-04-2023 09:47-0500 Body temperature 97.3 [degF] Shamika Reynolds LPN [facility]; [facility] Work Phone: 01-04-2023 09:47-0500 Body weight 71.22 kg Shamika Reynolds LPN [facility]; [facility] Work Phone: 01-04-2023 09:47-0500 Diastolic blood pressure 80 mm[Hg] Shamika Slarb DESK OPERATOR [facility]; [facility] Work Phone: 01-04-2023 09:47-0500 Heart rate 83 /min Shamika Slarb DESK OPERATOR [facility]; [facility] Work Phone: 01-04-2023 09:47-0500 Respiratory rate 16 /min Shamika Tuanrb DESK OPERATOR [facility]; [facility] Work Phone: 01-04-2023 09:47-0500 SaO2% (BldA) [Mass fraction] 99 % Shamika Slarb DESK OPERATOR [facility]; [facility] Work Phone: 01-04-2023 09:47-0500 Systolic blood pressure 120 mm[Hg] Shamika Slarb DESK OPERATOR [facility]; [facility] Work Phone: 09-22-2022 09:18-0400 Body height 160.02 cm Sahara Hardy MA [facility]; [facility] Work Phone: 09-22-2022 09:18-0400 Body mass index (BMI) [Ratio] 27.81 kg/m2 Sahara Hardy MA [facility]; [facility] Work Phone: 09-22-2022 09:18-0400 Body surface area Derived from formula 1.74 m2 Sahara Hardy MA [facility]; [facility] Work Phone: 09-22-2022 09:18-0400 Body temperature 95.2 [degF] Sahara Hardy MA [facility]; [facility] Work Phone: 09-22-2022 09:18-0400 Body weight 71.22 kg Sahara Hardy MA [facility]; [facility] Work Phone: 09-22-2022 09:18-0400 Diastolic blood pressure 80 mm[Hg] Sahara Hardy MA [facility]; [facility] Work Phone: Encounters Encounter Date Encounter Type Care Provider Facility Start: 05-21-2023 End: 05-21-2023 Raquel Vanesa DO Work Phone: [facility] Start: 04-13-2023 End: 04-18-2023 Office outpatient visit 5 minutes Raquel Vanesa DO Work Phone: [facility] Start: 01-04-2023 ambulatory Raquel Vanesa DO [facility] Start: 01-04-2023 End: 01-04-2023 Office outpatient visit 25 minutes Raquel Vanesa DO Work Phone: [facility] Start: 01-04-2023 Raquel Fearo n DO Work Phone: [facility] Start: 09-22-2022 Review Raquel Fearo n DO Work Phone: [facility] Start: 09-22-2022 End: 09-27-2022 Office outpatient visit 15 minutes Raquel Vanesa DO Work Phone: [facility] Start: 05-24-2022 End: 05-24-2022 Annotation/Addendum Raquel Vanesa DO Work Phone: [facility] Start: 05-24-2022 End: 05-24-2022 Raquel Vanesa DO Work Phone: [facility] Start: 11-30-2021 End: 11-30-2021 Office outpatient visit 10 minutes Raquel Vanesa DO Work Phone: [facility] Start: 11-30-2021 Review Raquel Fearo n DO Work Phone: [facility] Start: 11-29-2021 End: 11-30-2021 Office outpatient visit 5 minutes Raquel Vanesa DO Work Phone: [facility] Start: 05-09-2021 End: 05-09-2021 Annotation/Addendum Raquel Vanesa DO Work Phone: [facility] Start: 05-09-2021 End: 05-09-2021 Raquel Vanesa DO Work Phone: [facility] Start: 07-21-2020 End: 07-21-2020 Phone Encounter Raquel Mauro [facility] Start: 07-21-2020 End: 07-21-2020 Raquel Mauro DO Work Phone: [facility] Start: 06-14-2020 End: 06-14-2020 Office outpatient visit 10 minutes Raquel Vanesa [facility] Start: 04-21-2020 End: 04-21-2020 Office outpatient visit 25 minutes Raquel Vanesa [facility] Start: 02-23-2020 End: 02-23-2020 Lab Order Raquel Mauro [facility] Start: 02-23-2020 End: 02-23-2020 Raquel Mauro DO Work Phone: [facility] Start: 12-19-2019 End: 12-19-2019 Phone Encounter Raquel Mauro [facility] Start: 12-19-2019 End: 12-19-2019 Raquel Mauro DO Work Phone: [facility] Start: 12-19-2019 End: 12-19-2019 Office outpatient visit 15 minutes Raquel Vanesa [facility] Start: 10-09-2019 End: 10-09-2019 Office outpatient visit 25 minutes Raquel Mauro [facility] Start: 10-09-2019 Review Raquel Vanesa Compreh [facility] Start: 09-24-2019 End: 09-24-2019 Phone Encounter Raquel Mauro [facility] Start: 09-24-2019 End: 09-24-2019 Raquel Mauro DO Work Phone: [facility] Start: 09-22-2019 End: 09-22-2019 Phone Encounter Raquel Mauro [facility] Start: 09-22-2019 End: 09-22-2019 Raquel Mauro DO Work Phone: [facility] Start: 05-08-2019 End: 05-08-2019 Patient encounter procedure Clarita Forrest CMA [facility]; [facility] Work Phone: Start: 05-08-2019 End: 05-08-2019 Periodic preventive med est patient 65yrs& older Raquel Mauro [facility] Start: 03-19-2019 End: 03-19-2019 Phone Encounter Raquel Mauro [facility] Start: 03-19-2019 End: 03-19-2019 Raquel Mauro DO Work Phone: [facility] Start: 03-13-2019 End: 03-13-2019 Office outpatient visit 25 minutes Raquel Mauro [facility] Start: 09-13-2018 End: 09-13-2018 Phone Encounter Raquel Mauro [facility] Start: 09-13-2018 End: 09-13-2018 Raquel Mauro DO Work Phone: [facility] Start: 09-12-2018 End: 09-12-2018 Office outpatient visit 25 minutes Raquel Vanesa [facility] Start: 08-22-2018 End: 08-22-2018 Office outpatient visit 25 minutes Raquel Mauro [facility] Start: 04-26-2018 End: 04-26-2018 Patient encounter procedure Raquel Mauro DO Work Phone: [facility] Start: 04-26-2018 End: 04-26-2018 Periodic preventive med est patient 65yrs& older Raquel Crawfrodon [facility] Start: 04-19-2018 End: 04-19-2018 Office outpatient visit 25 minutes Raquel Vanesa [facility] Start: 10-29-2017 End: 10-29-2017 Phone Encounter Raquel Mauro [facility] Start: 10-29-2017 End: 10-29-2017 Raquel Mauro DO Work Phone: [facility] Start: 09-10-2017 [id number] Start: 07-11-2017 Ambulatory Valente Silvapeace Christensen Fac ility:[facility] Start: 06-27-2017 End: 06-27-2017 Office outpatient visit 15 minutes Raquel Vanesa [facility] Start: 06-04-2017 Ambulatory [facility] Facility:[facility] Start: 05-04-2017 End: 05-04-2017 Phone Encounter Raquel Crawfordon [facility] Start: 05-04-2017 End: 05-04-2017 Raquel Maruo DO Work Phone: [facility] Start: 04-26-2017 End: 04-26-2017 Office outpatient visit 25 minutes Raquel Mauro [facility] Start: 03-02-2017 End: 03-02-2017 Patient encounter procedure Raquel Mauro DO Work Phone: [facility] Start: 03-02-2017 End: 03-02-2017 Periodic preventive med est patient 65yrs& older Raquel Mauro [facility] Start: 02-01-2017 End: 02-01-2017 Office outpatient visit 25 minutes Raquel Mauro [facility] Start: 01-26-2017 End: 01-26-2017 Annotation/Addendum Raquel Mauro [facility] Start: 01-26-2017 End: 01-26-2017 Raquel Mauro DO Work Phone: [facility] Start: 01-25-2017 End: 01-25-2017 Office outpatient visit 15 minutes Raquel Mauro [facility] Start: 12-28-2016 End: 12-28-2016 Patient encounter procedure Raquel Mauro [facility] Start: 12-28-2016 End: 12-28-2016 Raquel Mauro DO Work Phone: [facility] Start: 12-20-2016 End: 12-20-2016 Phone Encounter Raquel Mauro [facility] Start: 12-20-2016 End: 12-20-2016 Raquel Mauro DO Work Phone: [facility] Start: 12-14-2016 End: 12-14-2016 Patient encounter procedure Raquel Mauro [facility] Start: 12-14-2016 End: 12-14-2016 Raquel Mauro DO Work Phone: [facility] Start: 07-25-2016 End: 07-25-2016 Office outpatient visit 25 minutes Raquel Mauro [facility] Start: 04-12-2016 End: 04-12-2016 Medical examinations/reports status Raquel Mauro DO Work Phone: [facility] Start: 04-12-2016 End: 04-12-2016 Patient encounter procedure Raquel Mauro [facility] Start: 04-12-2016 End: 04-12-2016 Raquel Mauro DO Work Phone: [facility] Medical examinations/reports status Arlene Bland RN [facility]; [facility] Work Phone: Patient encounter procedure Arlene Bland RN [facility]; [facility] Work Phone: Patient encounter procedure Arlene Bland RN [facility]; [facility] Work Phone: Patient encounter procedure Julio Wang LPN [facility]; [facility] Work Phone: Patient encounter procedure Joel Burleson REHABILITATION TEACHER [facility]; [facility] Work Phone: Procedures Date Procedure Procedure Detail Performing Clinician Start: 06-05-2023 End: 06-05-2023 Procedure Note: See Note; NOTES: [facility] Imaging Services [address] [place] [address] SCRN MAMM (CAD)W/YEISON BILAT MR#: [id number] Acct: [id number] Name: OMAIRA OLIVER Rep #: [id number] : 1940 F 83 From: Ian gomes MD PCP: Dr. Raquel Mauro, Status: REG [facility] Study: SCRN MAMM (CAD)W/YEISON BILAT Date of Exam: 05/26 12/18 Exam# [id number] Ordering Dr: Raquel Mauro DO MAMMOGRAPHY - BILATERAL SCREENING REASON FOR EXAM: Female, 83 years old. Routine annual screening examination. PERTINENT HISTORY: Non-contributory. TECHNIQUE: Digital bilateral breast yeison (3D mammographic acquisition) in the CC and MLO projections. 2-D mediolateral oblique (MLO) and craniocaudad (CC) views of both breasts were obtained. CAD: Full Field Digital Mammography with Computer Added Detection was performed. COMPARISON: Comparison is made with prior study dated June 01, 2022 and May 26, 2021. FINDINGS: Breast Composition: The breasts are heterogeneously dense, which may obscure small masses. There are no dominant masses or suspicious calcifications. No other significant abnormalities are identified. There has been no significant change since the prior study. BI/SCRN MAMM (CAD)W/YEISON BILAT IMPRESSION: Stable bilateral screening mammogram. Yearly follow-up mammogram recommended. (A) ASSESSMENT CATEGORY: BIRADS Category 1: Negative. A letter regarding these results will be sent to the patient by the facility within 30 days. Approximately 10% of breast cancers are not detected by mammography. A normal mammogram should not delay biopsy of a clinically suspicious abnormality. [id number] Electronically Signed: Ian Bhatia MD at 9:42 EDT Reading Location ID and State: [address] [place] [address] , Service support , CC: Dr. Raquel Mauro DO Dimmer Board Operator: Signed Raquel Mauro DO Work Phone: Start: 04-26-2023 End: 04-26-2023 Procedure Note: See Note; NOTES: [facility] Imaging Services [address] [place] [address] Chest PA and Lateral MR#: [id number] Acct: [id number] Name: OMAIRA OLIVER Rep #: [id number] : 1940 F 82 From: Jan White MD PCP: Dr. Raquel Mauro DO Status: REG [facility] Study: Chest PA and Lateral Date of Exam: 04/26/23 Exam# [id number] Ordering Dr: Juan C Fraser MD STUDY: X-RAY CHEST REASON FOR EXAM: Female, 82 years old. COPD. Follow-up. TECHNIQUE: Frontal and lateral views of the chest. COMPARISON: December 2016. FINDINGS: Hyperinflation with scattered healed parenchymal granulomatous calcifications, unchanged. Stable cardiomegaly with aortic tortuosity and calcification. Diffuse thoracic osteopenia with spondylosis. No abnormality of the visualized soft tissue structures of the upper abdomen. RAD/Chest PA and Lateral IMPRESSION: Stable chest with no acute superimposed finding. Electronically Signed: Jan White MD at 11:10 EDT , CC: Dr. Raquel Mauro DO; Dr. Juan C Fraser MD Dimmer Board Operator: Signed Raquel Mauro DO Work Phone: Start: 11-02-2022 End: 11-02-2022 Procedure Note: See Note; NOTES: [facility] [address] [place] [address]. [address] [place] [address] OFFICE VISIT Date of Service: 11/02/22 MR#: [id number] Acct: [id number] Name: OMAIRA OLIVER Rep #: [id number] : 1940 Provider: MURALI Coffey Age/Sex: 82/F Location: [facility] Status: Signed [facility] HPI History of Present Illness Details: Omaira Oliver is an 82 year-old female with a history of underlying valvular heart related issues, diastolic dysfunction, pulmonary hypertension, hyperlipidemia, and hypertension. Her biggest issues is her arthritis. From a cardiac standpoint, patient is doing well. She does not have any chest discomfort/heaviness/tightnes s.She does not have any worsening symptoms of shortness of breath. She does not have any orthopnea. She denies PND. She does not have any symptoms of congestive heart failure. She does not have any palpitations that she is aware of. She does not have any lightheadedness or dizziness. She does not have any near-syncope or syncope. She does have swelling in her legs and she does use compression stockings. She does not have any symptoms of claudication. Intake Vital Signs 10/07/21 10:14 11/30/21 17:43 11/02/22 15:28 11/02/22 15:29 Height 5 ft 3 in 5 ft 2 in 5 ft 2 in 5 ft 2 in Weight: 149 lb BMI 27.2 BP 138/82 H Blood Pressure Location Lt brachial Position Sitting Respiration 18 Pulse 65 Pulse Source Monitor Pulse Oximetry (%) 96 Intake Visit Reasons: 1 y fu Admitting Supervisor Required: No Is patient in pain?: No Allergies amitriptyline Allergy (Severe, Verified 11/02/22 15:38) hypotension meloxicam Allergy (Severe, Verified 11/02/22 15:38) hypotension lidocaine Adverse Reaction (Mild, Verified 11/02/22 15:38) shaking cortisone Adverse Reaction (Verified 11/02/22 15:38) Nausea, hot flashes, and passing out hydrochlorothiazide Adverse Reaction (Verified 11/02/22 15:38) Other morphine Adverse Reaction (Verified 11/02/22 15:38) Other nitrofurantoin [From Macrobid] Adverse Reaction (Verified 11/02/22 15:38) Other Medications amlodipine 5 mg tablet 5 mg PO DAILY bp 08/28/17 [History Confirmed 11/02/22] calcium-vitamin D3-vitamin K 500 mg-500 unit-40 mcg chewable tablet (Viactiv) 1 tab PO QDAY 07/03/18 [History Confirmed 11/02/22] cholecalciferol (vitamin D3) 125 mcg (5,000 unit) tablet 5,000 unit PO QDAY 07/08/18 [History Confirmed 11/02/22] hydroxychloroquine 200 mg tablet (Plaquenil) 200 mg PO DAILY 09/06/20 [History Confirmed 11/02/22] nystatin 100,000 unit/mL oral suspension 1 ml PO DAILY 09/06/20 [History Confirmed 11/02/22] clobetasol 0.05 % topical gel 1 applic topical DAILY 02/18/21 [History Confirmed 11/02/22] dicyclomine 10 mg capsule 10 mg PO BID 10/07/21 [History Confirmed 11/02/22] pantoprazole 20 mg tablet,delayed release 40 mg PO DAILY 11/02/22 [History Confirmed 11/02/22] [facility] Medical History Acute hemorrhoid Anemia Back pain Basal cell carcinoma Diastolic dysfunction Difficulty balancing Diverticulitis Essential hypertension GERD (gastroesophageal reflux disease) Hiatal hernia History of aortic valve disorder Knee pain Limb weakness Neck pain Nonrheumatic mitral valve regurgitation Nonrheumatic tricuspid (valve) insufficiency GERRY (obstructive sleep apnea) Pulmonary hypertension Pure hypercholesterolemia Trigger finger of thumb Surgical History h/o left carpal tunnel release H/O: hysterectomy History of back surgery History of partial knee replacement History of spinal fusion History of tonsillectomy Hx of carpal tunnel repair Hx of cholecystectomy Hx of cholecystectomy Hx of hysterectomy Hx of tonsillectomy s/p right knee UKA spinal fusion Status post trigger finger release Family History Mother Hypertension Father Hypertension Grandmother CVA (cerebral vascular accident) Grandfather Myocardial infarction Grandfather Myocardial infarction Other Cervical cancer Lung cancer Social History Smoking Status: Never smoker alcohol intake: never substance use type: does not use ROS Const Const: Negative for fatigue, weakness, frequent falls, excessive sweating, weight gain or weight loss Eyes Eyes: Negative for transient loss of vision, blurry vision or change in vision ENT ENT: Negative for dizziness or balance problems Cardio Chest Pain: No Palpitations: No Edema: None Muscle aches with walking: None Resp Respiratory: Negative for SOB with activity or SOB at rest GI GI: Negative vomiting or vomiting blood/hematemesis : Negative for hematuria Musc Musc: Positive for muscle aches/ myalgia and joint pain; Negative for muscle weakness or balance problems Skin Skin: Negative non-healing lesions or rash Neuro Neuro: Negative for dizziness, lightheadedness, orthostatic symptoms, frequent falls, weakness or blurry vision Jonas Hematologic/Lymphatic: Negative for easy bleeding Endo Endo: Negative for fatigue or excessive sweating Psych Psych: Negative for anxiety or depression Allergy Allergy/Immunology: Negative for hives and Negative for rash Cardiology Exam Const Appearance: cooperative, healthy appearing, comfortable, no acute distress, well developed and well groomed Nutritional Appearance: overweight Orientation: alert, awake and oriented x3 Head Head: normal to inspection, normocephalic and atraumatic Ears: hearing grossly normal bilaterally Nose: external nose normal Face and Sinus: face symmetric Eyes Eyelids: eyelids normal Conjunctivae: conjunctivae normal Pupils: PERRL EOM: EOM intact bilaterally Neck Neck: normal visual inspection and full ROM Carotids: normal carotid upstroke Chest Chest inspection: normal inspection of the chest, symmetric chest movement and normal respiratory effort Auscultation: Bilateral: Clear to Auscultation Cardio Rate: regular rate Rhythm: regular rhythm Heart sounds: S1 normal and S2 normal GI GI: normal to inspection, soft and bowel sounds present Supplemental Info Supplemental Information Transthoracic echocardiogram: 03/27/2019 Interpretation Summary Left ventricular systolic function is normal. The estimated ejection fraction is 65 %. The left atrium is moderately enlarged. The right atrium is mildly enlarged. There is moderate mitral annular calcification. Extension of the mitral annular calcification onto the posterior mitral valve leaflet. Mild (1+) mitral valve insufficiency. Trivial tricuspid valve insufficiency. Mild focal aortic valve calcification. Trivial pulmonic valve insufficiency. Right ventricular systolic pressure estimated to be 28 mmHg. Diastolic function is indeterminate. Cardiogram: 08-17-2021 Interpretation Summary Left ventricular systolic function is normal. The estimated ejection fraction is 65 %. The left atrium is mildly enlarged. There is moderate mitral annular calcification. Extension of the mitral annular calcification on the base of the posterior mitral valve leaflet. Mild (1+) mitral valve insufficiency. Mild tricuspid valve insufficiency. Trivial pulmonic valve insufficiency. Right ventricular systolic pressure estimated to be 31 mmHg. Diastolic function is indeterminate. DATE OF SERVICE: 01/23/2017 EXERCISE TOLERANCE TEST: The patient underwent pharmacologic (regadenoson) evaluation with a peak heart rate of 93 beats per minute (63% predicted maximum heart rate) and a peak blood pressure of 156/90 mmHg. The baseline ECG demonstrated normal sinus rhythm. The peak pharmacologic ECG demonstrated no obvious ECG changes. There were no obvious cardiac dysrhythmias pretest or during pharmacologic infusion with a rare PAC during recovery. There was no report of chest discomfort during pharmacologic infusion or recovery. The examination was discontinued secondary to completion of protocol. IMPRESSION: 1. Pharmacologic (regadenoson) evaluation. 2. Peak pharmacologic ECG with no obvious ECG changes. 3. Rare premature atrial contraction during recovery. 4. Nuclear images pending. MYOCARDIAL PERFUSION IMAGING STUDY: TECHNIQUE: The patient was injected with 11.0 mCi of Tc99m Cardiolite and subsequently rest SPECT Cardiolite nuclear imaging was obtained in the horizontal long, vertical long and short axes views. The patient underwent pharmacologic (regadenoson) evaluation with a peak heart rate of 93 beats per minute (63% predicted maximum heart rate) and a peak blood pressure of 156/90 mmHg. The patient was injected with 33.7 mCi of Tc99m Cardiolite and subsequently stress SPECT Cardiolite nuclear imaging was obtained in the horizontal long, vertical long and short axes views. A gated Cardiolite study at peak stress was obtained. INTERPRETATION: Rest and stress SPECT Cardiolite nuclear imaging status post realignment, normalization and attenuation correction demonstrates the appearance of relative uniform tracer uptake and myocardial perfusion appearing within normal limits. There is notation of end systolic thickening and brightening. The gated Cardiolite study demonstrates myocardial thickening and inward wall motion. The reported LVEF is 81%. There are no myocardial perfusion deficits noted on the rest or stress polar map images. IMPRESSION: 1. Rest and stress SPECT Cardiolite nuclear imaging demonstrate relative uniform tracer uptake and myocardial perfusion appearing within normal limits. 2. The gated Cardiolite study reports an LVEF of 81%. Labs: LDL Cholesterol 127 mg/dL (0-130) HDL Cholesterol 100 mg/dL (40-) Triglycerides 74 mg/dL (-199) VLDL Cholesterol 15 mg/dL (5-40) Diagnostics: No Data to Display Pulmonary: No Data to Display Assessment and Plan Assessment and Plan (1) Nonrheumatic mitral valve regurgitation: Status: Acute Plan: This is mild to moderate, will continue to monitor with routine echocardiograms. We will consider repeating 1 next year. (2) Hyperlipemia: Status: Chronic Qualifiers: Hyperlipidemia type: unspecified Qualified Code(s): E78.5 - Hyperlipidemia, unspecified Plan: Patient's lipids are noted to be slightly elevated. Did discuss dietary modifications. She will repeat her lipids in the near future. If they are elevated will start medications. (3) Essential hypertension: Status: Chronic Plan: Blood pressure controlled on current medications. Will not make any adjustments. Plan Details Additional Comments: She will be scheduled for a visit approximately 1 year unless needed sooner. Thank you for allowing me to participate in the care of your patient. Please don't hesitate to call if any issues arise. This note was generated using a voice recognition system and there may be incorrect words, spelling or punctuation that were not noted when reviewing the office note prior to saving. Follow Up: 1 Year (PFM) Coding Level of Care Code Off vis,est,level 3 Diagnoses Nonrheumatic mitral valve regurgitation I34.0 Hyperlipemia E78.5 Hyperlipidemia type: unspecified Essential hypertension I10 Coding Level of Care Code Off vis,est,level 3 Diagnoses Nonrheumatic mitral valve regurgitation I34.0 Hyperlipemia E78.5 Hyperlipidemia type: unspecified Essential hypertension I10 11/02/22 1636 <Electronically signed by Casandra Lam A> Date Casandra CARRION Cosigner Signature: Date (if applicable) CC: DO Raquel Sylvester DO Work Phone: Start: 09-22-2022 End: 09-22-2022 Cerv Spine 2 or 3 Views Procedure Note: See Note; NOTES: [facility] [address] [place] [address] Cerv Spine 2 or 3 Views MR#: [id number] Acct: [id number] Name: OMAIRA OLIVER Rep #: [id number] : 1940 F 82 From: Enzo Verduzco MD PCP: Dr. Raquel Mauro DO Status: DEP AMB Study: Cerv Spine 2 or 3 Views Date of Exam: 09/22/22 Exam# [id number] Ordering Dr: Giselle Almeida NET DEVELOPER-C STUDY: X-RAY - CERVICAL SPINE REASON FOR EXAM: Female, 82 years old. PAIN TECHNIQUE: 3 view(s) of the cervical spine were obtained. COMPARISON: None FINDINGS: Normal anterior atlantoaxial articulation. Normal odontoid process. Craniocervical lordosis due to degenerative disc disease. Mild anterior osteophyte formation C3-C5 moderate osteophyte formation C5-C7 and mild intraosteophyte formation C7-T1. Severe loss of disc space height C5-C7 moderate remainder of cervical spine. Normal visualized intervertebral neuroforamina. The soft tissue structures are unremarkable. RAD/Cerv Spine 2 or 3 Views IMPRESSION: Degenerative changes as above. Electronically Signed: Enzo Verduzco MD, ROHAN at 10:57 EDT , CC: KARLA Almeida; Dr. Raquel Mauro DO Dimmer Board Operator: Signed Raquel Mauro DO Work Phone: Start: 09-01-2022 End: 09-01-2022 Orthopedic Visit Report Procedure Note: See Note; NOTES: [facility] [address] [place] [address] OFFICE VISIT Date of Service: 09/01/22 MR#: [id number] Acct: [id number] Name: OMAIRA OLIVER Rep #: [id number] : 1940 Provider: Dr. Jose Juan aguilera DO Age/Sex: 82/F Location: [facility] Status: Signed Intake Vital Signs 11/30/21 17:43 Height 5 ft 2 in Intake Visit Reasons: LUMBER SPINE Allergies amitriptyline Allergy (Severe, Verified 09/01/22 11:01) hypotension meloxicam Allergy (Severe, Verified 09/01/22 11:01) hypotension lidocaine Adverse Reaction (Mild, Verified 09/01/22 11:01) shaking cortisone Adverse Reaction (Verified 09/01/22 11:01) Nausea, hot flashes, and passing out hydrochlorothiazide Adverse Reaction (Verified 09/01/22 11:01) Other morphine Adverse Reaction (Verified 09/01/22 11:01) Other nitrofurantoin [From Macrobid] Adverse Reaction (Verified 09/01/22 11:01) Other Medications amlodipine 5 mg tablet 5 mg PO DAILY bp 08/28/17 [History Confirmed 09/01/22] calcium-vitamin D3-vitamin K 500 mg-500 unit-40 mcg chewable tablet (Viactiv) 1 tab PO QDAY 07/03/18 [History Confirmed 09/01/22] cholecalciferol (vitamin D3) 125 mcg (5,000 unit) tablet 5,000 unit PO QDAY 07/08/18 [History Confirmed 09/01/22] hydroxychloroquine 200 mg tablet (Plaquenil) 200 mg PO DAILY 09/06/20 [History Confirmed 09/01/22] nystatin 100,000 unit/mL oral suspension 1 ml PO DAILY 09/06/20 [History Confirmed 09/01/22] clobetasol 0.05 % topical gel 1 applic topical DAILY 02/18/21 [History Confirmed 09/01/22] zinc 50 mg tablet 50 mg PO DAILY 02/18/21 [History Confirmed 09/01/22] dicyclomine 10 mg capsule 10 mg PO BID 10/07/21 [History Confirmed 09/01/22] pantoprazole 20 mg tablet,delayed release 20 mg PO DAILY 10/07/21 [History Confirmed 09/01/22] PFSH Medical History Acute hemorrhoid Anemia Back pain Basal cell carcinoma Diastolic dysfunction Difficulty balancing Diverticulitis Essential hypertension GERD (gastroesophageal reflux disease) Hiatal hernia History of aortic valve disorder Knee pain Limb weakness Neck pain Nonrheumatic mitral valve regurgitation Nonrheumatic tricuspid (valve) insufficiency GERRY (obstructive sleep apnea) Pulmonary hypertension Trigger finger of thumb Surgical History h/o left carpal tunnel release H/O: hysterectomy History of back surgery History of partial knee replacement History of spinal fusion History of tonsillectomy Hx of carpal tunnel repair Hx of cholecystectomy Hx of cholecystectomy Hx of hysterectomy Hx of tonsillectomy s/p right knee UKA spinal fusion Status post trigger finger release Family History Mother Hypertension Father Hypertension Grandmother CVA (cerebral vascular accident) Grandfather Myocardial infarction Grandfather Myocardial infarction Other Cervical cancer Lung cancer Social History Smoking Status: Never smoker alcohol intake: never substance use type: does not use HPI LUMBER SPINE Details: Parts of this documentation were recorded by a scribe, this documentation accurately reflects the service provided and the decisions made by me, Dr. Jose Juan Wharton, 09/01/22 1058. OMAIRA OLIVER is a 82 year old F here today for MRI Review. She has been using Advil and a heating pad for the pain. I went over Mrs. Oliver's MRI scan. She has a lot of facet arthritis which of course is why she has the lumbar scoliosis. It is degenerative in nature. The right NAYELI cage is perhaps just a lit tle posterior however its not pressing on any nerve root or on the cauda equina. He stated to me that yesterday she took 1 Excedrin and 1 Aleve and she got tremendous relief all day and she still has it even today. I suggested to her that no more medicine than that is she should probably take each 1 of those once a day and hope that it continues to help her like it did yesterday. I told her that if we have to we could surely inject her facet joints however with such good relief from the simple 2 medications taken 1 time I think that that is worth a try first before we plan on any facet injections. I told her if the pain should return and and stay that way and not respond to her medication that we would consider lumbar facet injections. I will see her on a as needed basis. Coding Level of Care Code Off vis,est,level 2 Diagnoses S/P lumbar fusion Z98.1 DDD (degenerative disc disease), lumbar M51.36 Time Spent (min) 25 Assessment and Plan Assessment and Plan (1) S/P lumbar fusion: Status: Acute (2) DDD (degenerative disc disease), lumbar: Status: Acute 09/01/22 1156 <Electronically signed by Jose Juan Wharton DO> Date Jose Juan Wharton DO Cosigner Signature: Date (if applicable) CC: DO Raquel Sylvester DO Work Phone: Start: 08-31-2022 End: 09-01-2022 Spine Lumbar W/WO Contrast Procedure Note: See Note; NOTES: [facility] Imaging Services [address] [place] [address] Spine Lumbar W/WO Contrast MR#: [id number] Acct: [id number] Name: OMAIRA OLIVER Rep #: [id number] : 1940 F 82 From: Clint Beckman MD PCP: Dr. Raquel Mauro DO Status: REG CLI Study: Spine Lumbar W/WO Contrast Date of Exam: 05/17 Exam# [id number] Ordering Dr: Jose Juan Wharton DO STUDY: MRI LUMBAR SPINE WITH AND WITHOUT CONTRAST REASON FOR EXAM: Female, 82 years old. low back pain several months no injury TECHNIQUE: Standardized fat and water weighted pulse sequences were obtained in the sagittal and axial planes. 13cc iv clariscan was administered for the contrast portion of the examination. COMPARISON: Lumbar spine radiographs August [address] lumbar spine September 15, 2021 FINDINGS: Prior laminectomy L4-L5. Disc spacer at L4-5. No fracture or acute compression deformity. Diffuse endplate degenerative change at T12-L1. Mild chronic anterior vertebral height loss L2 and L3. Diffuse endplate degenerative change. No aggressive osseous lesion. T12-L1: Small posterior disc protrusion with minimal spinal canal and bilateral neural foraminal narrowing. L1-2: Small circumferential disc bulge most prominent left subarticular with mild spinal canal narrowing. Bilateral moderate facet arthropathy. Together findings cause moderate left and mild right neural foraminal narrowing. L2-3: Small posterior disc protrusion with mild facet arthropathy together causing mild spinal canal narrowing. Moderate left and mild right neural foraminal narrowing. L3-4: Small posterior disc protrusion. Degenerative retrolisthesis L3 on L4 secondary to severe bilateral facet arthropathy. Together the findings cause mild spinal canal narrowing. Severe right and left neural foraminal narrowing. L4-5. Prior discectomy and laminectomy. Severe bilateral facet arthropathy. No central spinal stenosis status post decompression. Mild left and likely moderate right neural foraminal stenosis. L5-S1: Normal endplates. Normal disc height, hydration and morphology. Normal bilateral facet joints. Normal central canal and bilateral lateral recesses. Normal bilateral intervertebral neural foramina. Normal visualized sacral ala. Normal visualized paraspinous soft tissue structures. MRI/Spine Lumbar W/WO Contrast IMPRESSION: Spondylosis and prior lower lumbar laminectomy and discectomy. No evidence of critical spinal canal stenosis. Multilevel neural foraminal narrowing as above. Electronically Signed: Clint Beckman MD at 7:14 EDT Reading Location ID and State: [facility] / [place] Tel , Service support , CC: Dr. Raquel Mauro DO; Dr. Jose Juan Wharton DO Dimmer Board Operator: Signed Raquel Mauro DO Work Phone: Start: 08-11-2022 End: 08-11-2022 Lumbar Spine 2 or 3 Views Procedure Note: See Note; NOTES: [facility] [address] [place] [address] Lumbar Spine 2 or 3 Views MR#: [id number] Acct: [id number] Name: OMAIRA OLIVER Rep #: [id number] : 1940 F 82 From: Sherif Carbajal PCP: Dr. Raquel Mauro DO Status: DEP AMB Study: Lumbar Spine 2 or 3 Views Date of Exam: Exam# [id number] Ordering Dr: Jose Juan Wharton DO STUDY: X-RAY - LUMBAR SPINE REASON FOR EXAM: Female, 82 years old. pain TECHNIQUE: XR Spine Lumbar 2 or 3 Views COMPARISON: 09/03/2019 FINDINGS: Normal lumbar lordosis. There is a dextroscoliosis of the lumbar spine. There is a normal alignment of the vertebrae. There is a Grade 1 anterolisthesis of L3 on L4. There is multilevel endplate spondylosis of the lumbar vertebrae. There is multi-level degenerative disc disease with multi-level disc space narrowing. There are atherosclerotic vascular calcifications. The soft tissue structures are unremarkable. Fusion cage at L4-5. RAD/Lumbar Spine 2 or 3 Views IMPRESSION: Degenerative changes of the spine, as detailed above. There has been no change since the prior study. Electronically Signed: Sherif Su MD at 14:51 EDT Reading Location ID and State: [facility] / [place] , Service support , CC: Dr. Raquel Mauro DO; Dr. Jose Juan Wharton DO Dimmer Board Operator: Signed Raquel Mauro DO Work Phone: Start: 08-11-2022 End: 08-11-2022 Orthopedic Visit Report Procedure Note: See Note; NOTES: [facility] [address] [place] [address] OFFICE VISIT Date of Service: 08/11/22 MR#: [id number] Acct: [id number] Name: OMAIRA OLIVER Rep #: [id number] : 1940 Provider: Dr. Jose Juan aguilera DO Age/Sex: 82/F Location: [facility] [place] Status: Signed Intake Vital Signs 11/30/21 17:43 Height 5 ft 2 in Intake Visit Reasons: LUMBER SPINE Chief Complaint: lumbar Is patient in pain?: Yes Pain scale (1-10): 5 Allergies amitriptyline Allergy (Severe, Verified 11/30/21 14:46) hypotension meloxicam Allergy (Severe, Verified 11/30/21 14:45) hypotension lidocaine Adverse Reaction (Mild, Verified 11/30/21 14:45) shaking cortisone Adverse Reaction (Verified 11/30/21 14:45) Nausea, hot flashes, and passing out hydrochlorothiazide Adverse Reaction (Verified 11/30/21 14:45) Other morphine Adverse Reaction (Verified 11/30/21 14:45) Other nitrofurantoin [From Macrobid] Adverse Reaction (Verified 11/30/21 14:45) Other Medications amlodipine 5 mg tablet 5 mg PO DAILY bp 08/28/17 [History Confirmed 08/11/22] calcium-vitamin D3-vitamin K 500 mg-500 unit-40 mcg chewable tablet (Viactiv) 1 tab PO QDAY 07/03/18 [History Confirmed 08/11/22] cholecalciferol (vitamin D3) 125 mcg (5,000 unit) tablet 5,000 unit PO QDAY 07/08/18 [History Confirmed 08/11/22] hydroxychloroquine 200 mg tablet (Plaquenil) 200 mg PO DAILY 09/06/20 [History Confirmed 08/11/22] nystatin 100,000 unit/mL oral suspension 1 ml PO DAILY 09/06/20 [History Confirmed 08/11/22] clobetasol 0.05 % topical gel 1 applic topical DAILY 02/18/21 [History Confirmed 08/11/22] zinc 50 mg tablet 50 mg PO DAILY 02/18/21 [History Confirmed 08/11/22] dicyclomine 10 mg capsule 10 mg PO BID 10/07/21 [History Confirmed 08/11/22] pantoprazole 20 mg tablet,delayed release 20 mg PO DAILY 10/07/21 [History Confirmed 08/11/22] [facility] Medical History Acute hemorrhoid Anemia Back pain Basal cell carcinoma Diastolic dysfunction Difficulty balancing Diverticulitis Essential hypertension GERD (gastroesophageal reflux disease) Hiatal hernia History of aortic valve disorder Knee pain Limb weakness Neck pain Nonrheumatic mitral valve regurgitation Nonrheumatic tricuspid (valve) insufficiency GERRY (obstructive sleep apnea) Pulmonary hypertension Trigger finger of thumb Surgical History h/o left carpal tunnel release H/O: hysterectomy History of back surgery History of partial knee replacement History of spinal fusion History of tonsillectomy Hx of carpal tunnel repair Hx of cholecystectomy Hx of cholecystectomy Hx of hysterectomy Hx of tonsillectomy s/p right knee UKA spinal fusion Status post trigger finger release Family History Mother Hypertension Father Hypertension Grandmother CVA (cerebral vascular accident) Grandfather Myocardial infarction Grandfather Myocardial infarction Other Cervical cancer Lung cancer Social History Smoking Status: Never smoker alcohol intake: never substance use type: does not use HPI LUMBER SPINE Details: Parts of this documentation were recorded by a scribe, this documentation accurately reflects the service provided and the decisions made by me, Dr. Jose Juan Wharton, DO 08/11/22 3241. OMAIRA OLIVER is a 82 year old F NEW patient here today for low back pain that she has been having for the last few months. She states that bending to make a bed or to weed the flower bed she has increased pain. She states this pain is across the low back. Denies any leg pain. Denies numbness, tingling or other associated symptoms. She has tried aquatic therapy which was helpful. She states that she does do a HEP and walks daily. She also sees a chiropractor which is not helpful. She has tried topical creams which is not helpful. She had a lumbar fusion about 25 years ago. This is Lei is a delightful young lady 82 years old who presents with low back pain. She does not report any radicular symptoms. The lumbar surgery that she had about 25 years ago I took her leg pain away and actually has done quite well all these years. It included an interbody fusion at the L4-5 level. Her low back pain now waxes and wanes sometimes is real bad and can be a 10/10 in severity and other times is almost not there at all. Knees slight bending forward such as doing the dishes doing housework or gardening work does seem to set it off. She would like to know if there is anything could be done to make it better. She is quite functional however she walks 2 miles almost every day. This keeps her in pretty good shape for a lady 82 years old. On examination she has excellent motor strength of all the major muscle groups of both lower extremities. She has 2+ patella and Achilles reflexes bilaterally. She has no muscle atrophy. She has no long tract signs. Clonus is absent Babinski's are downgoing. She can stand on her toes and she can stand on her heels without difficulty. Currently she has little pain with flexion or extension of her lumbar spine. Plain x-rays taken in my office demonstrate that she has the old NAYELI cages made by Deanna at the L4- 5 level. These were both put in from the back so she had basically a posterior lumbar interbody fusion. They also decompressed her at that time which of course is why her leg pain is all gone. The discs above that is L3-4 and L2-3 are both quite degenerated as seen on the x-ray. I explained to Mrs. Oliver that she certainly does not need any surgical intervention. She simply does not paint that picture to us. However we might be able to help her in some way perhaps however first we need an MRI scan with contrast and without contrast of her lumbar spine. I will see her after the study and make further recommendations. Coding Level of Care Code Off vis,new,level 3 Diagnoses DDD (degenerative disc disease), lumbar M51.36 S/P lumbar fusion Z98.1 Time Spent (min) 35 Assessment and Plan Assessment and Plan (1) DDD (degenerative disc disease), lumbar: Status: Acute (2) S/P lumbar fusion: Status: Acute Orders: Orders Lumbar Spine 2 or 3 Views Today M54.50 - Low back pain, unspecified Spine Lumbar W/WO Contrast Today M54.50 - Low back pain, unspecified 08/11/22 1041 <Electronically signed by Jose Juan Wharton DO> Date Jose Juan Wharton DO [facility] Signature: Date (if applicable) CC: Dr. Raquel Mauro, DO Raquel Mauro DO Work Phone: Start: 06-01-2022 End: 06-01-2022 SCRN MAMM (CAD)W/YEISON BILAT Procedure Note: See Note; NOTES: [facility] Imaging Services [address] [place] [address] SCRN MAMM (CAD)W/YEISON BILAT MR#: [id number] Acct: [id number] Name: OMAIRA OLIVER Rep #: [id number] : 1940 F 82 From: Ian gomes MD PCP: Dr. Raquel Mauro, DO Status: [facility] Study: SCRN MAMM (CAD)W/YEISON BILAT Date of Exam: 06/16 Exam# [id number] Ordering Dr: Raquel Mauro DO MAMMOGRAPHY - BILATERAL SCREENING REASON FOR EXAM: Female, 82 years old. Routine annual screening examination. PERTINENT HISTORY: Non-contributory. TECHNIQUE: Digital bilateral breast yeison (3D mammographic acquisition) in the CC and MLO projections. 2-D mediolateral oblique (MLO) and craniocaudad (CC) views of both breasts were obtained. CAD: Full Field Digital Mammography with Computer Added Detection was performed. COMPARISON: Comparison is made with prior study dated 05/26/2021 and 05/25/2020. FINDINGS: Breast Composition: The breasts are heterogeneously dense, which may obscure small masses. There are no dominant masses or suspicious calcifications. Stable small benign-appearing bilateral axillary lymph nodes. No other significant abnormalities are identified. There has been no significant change since the prior study. BI/SCRN MAMM (CAD)W/YEISON BILAT IMPRESSION: Stable bilateral screening mammogram. Yearly follow-up mammogram recommended. (A) ASSESSMENT CATEGORY: BIRADS Category 2: Benign. A letter regarding these results will be sent to the patient by the facility within 30 days. Approximately 10% of breast cancers are not detected by mammography. A normal mammogram should not delay biopsy of a clinically suspicious abnormality. [id number] Electronically Signed: Ian Bhatia MD at 13:13 EDT , CC: Dr. Raquel Mauro DO [place] Board Operator: Signed Rauqel Mauro DO Work Phone: Start: 11-30-2021 End: 11-30-2021 Virtual Office Visit Comments: See Note; NOTES: [facility] [address] [place] [address] [place] [address] OFFICE VISIT Date of Service: 11/30/21 MR#: [id number] Acct: [id number] Patient: OMAIRA OLIVER Rep #: [id number] : 1940 Provider: KARLA morgan Age/Sex: 81/F Location[place] [facility] Status: Signed Intake Intake Visit Reasons: COVID-19 Allergies amitriptyline Allergy (Severe, Verified 11/30/21 14:46) hypotension meloxicam Allergy (Severe, Verified 11/30/21 14:45) hypotension lidocaine Adverse Reaction (Mild, Verified 11/30/21 14:45) shaking cortisone Adverse Reaction (Verified 11/30/21 14:45) Nausea, hot flashes, and passing out hydrochlorothiazide Adverse Reaction (Verified 11/30/21 14:45) Other morphine Adverse Reaction (Verified 11/30/21 14:45) Other nitrofurantoin [From Macrobid] Adverse Reaction (Verified 11/30/21 14:45) Other [facility] Medical History Acute hemorrhoid Anemia Back pain Basal cell carcinoma Diastolic dysfunction Difficulty balancing Diverticulitis Essential hypertension GERD (gastroesophageal reflux disease) Hiatal hernia History of aortic valve disorder Knee pain Limb weakness Neck pain Nonrheumatic mitral valve regurgitation Nonrheumatic tricuspid (valve) insufficiency GERRY (obstructive sleep apnea) Pulmonary hypertension Trigger finger of thumb Surgical History h/o left carpal tunnel release H/O: hysterectomy History of back surgery History of partial knee replacement History of spinal fusion History of tonsillectomy Hx of carpal tunnel repair Hx of cholecystectomy Hx of cholecystectomy Hx of hysterectomy Hx of tonsillectomy s/p right knee UKA spinal fusion Status post trigger finger release Family History Mother Hypertension Father Hypertension Grandmother CVA (cerebral vascular accident) Grandfather Myocardial infarction Grandfather Myocardial infarction Other Cervical cancer Lung cancer Social History Smoking Status: Never smoker alcohol intake: never substance use type: does not use HPI HPI Details: Patient was informed that this visit will be billed to patient. This visit was conducted during COVID-19 pandemic. Statement read to the patient: This telehealth visit is being offered during our stay at home measures in response to the pandemic. It is subject to an office visit charge. There are also charges for the monoclonal antibody infusion which may or may not be covered by your insurance. The patient consents to continue. The FDA has authorized the emergency use of monoclonal antibody treatment (bamlanivimab/etesevimab or casirivimab/imdevimab) for mild to moderate COVID-19 in adults and pediatric patients with positive results of direct SARS-Cov-2 viral testing ages 12 and older, at least 40 kg, who are at high risk for progressing to severe COVID-19 and or hospitalization. The significant known and potential risks (allergic reactions, worsening of symptoms after treatment, or side effects from injection including brief pain, bleeding, bruising of the skin, soreness, swelling, possible infection at the infusion site) and benefits (decrease chance of progression to severe COVID-19) of a monoclonal antibody infusion, and the extent to which such potential risks and benefits are unknown. Note that worsening symptoms after treatment may occur but it is unknown whether these symptoms are related to treatment or are due to the progression of COVID-19. Worsening symptoms may include: fever, difficulty breathing, rapid or slow heart rate, tiredness, weakness or confusion. If these symptoms occur, patients are encouraged to seek immediate medical attention. These treatments are still being studied, all possible side effects may not be listed or known at this time. Patients treated with monoclonal antibody infusion should continue to self-isolate and use infection control measures (such as wear mask, isolate, social distance, avoid sharing personal items, clean and disinfect high touch surfaces, and frequent handwashing) according to the CDC guidelines. The fact sheet will be provided prior to the administration of the medication. Oral medications have received authorization from the FDA to treat hmuf-de-aemggslv COVID-19 in patients at high risk for progression to severe COVID-19. These medications may not be appropriate for all patients and available drug supply may be limited. However, these oral medications may be more effective against the omicron variant. The patient had the option to refuse or accept treatment with monoclonal antibody therapy. The patient was informed that the number of people treated with monoclonal antibody therapy at this time is small. Due to the changes in the virus that causes COVID-19, some monoclonal antibody treatments may not be effective for all forms of the virus (known as variants). This includes the omicron variant. The patient stated understanding of this information communicated and wished to proceed with monoclonal antibody infusion therapy. COVID + test date: 11/29/21 @ [facility] Sx Onset: 11/21/21 Sx: chills, fever, CHEUNG, congestion O2: No Age: 81 Vaccine: Pfizer x1 Qualifier: Pulmonary HTN, GERRY Age 81 ROS Const Constitutional: Positive for chills, fever(s) and headache(s) ENT ENT: Positive for nasal congestion and headache(s) Neuro Neurology: Positive for headache(s) Exam Const General: cooperative and no acute distress Resp Effort Inspection: normal respiratory effort and able to speak in complete sentences Neuro General: patient alert, patient awake and patient oriented x3 Cognition: normal cognition Speech: speech normal Psych Mental Status: mental status grossly normal Mood: congruent mood Attitude: cooperative Thought Process: normal Thought Content: normal Judgment: judgment good Details: Details:: Exam was limited due to phone visit with no video. Quality Reporting Tobacco Screening ([facility] 138) Smoking Status: Never smoker Coding Level of Care Code New Pt Level 1 Telephone Patient Type New History Problem Focused Exam Problem Focused Medical Decision Making Straight Forward Diagnoses COVID-19 U07.1 Over 65 years old Time Spent (min) 10 Comment 34089 Assessment and Plan Assessment and Plan (1) COVID-19: Status: Acute Plan - Judie Stephens NP, NET DEVELOPER-C: The patient remains appropriate for the Monoclonal Antibody Infusion. The patient states understanding of this information communicated and wishes to proceed with monoclonal antibody infusion therapy. Patient agrees to receive either balanivimab/etesvimab or casirivimab/imdevimab upon availability. (2) Over 65 years old: Status: Acute Plan Details Other Medications: Discontinued: meloxicam Take 1 tablet/day for 1 week if no side effect may increase to 2 tablets daily. Do not take in conjunction with ibuprofen or other NSAID. Discontinued Reason: Order Changed 7.5 mg PO DAILY 35 tabs 0RF 11/30/21 1459 <Electronically signed by Judie Stephens NP NET DEVELOPER-C> Date Judie Stephens NP NET DEVELOPER-C Cosigner Signature: Date (if applicable) CC: Dr. Raquel Mauro, DO Raquel Mauro DO Work Phone: Start: 10-07-2021 End: 10-07-2021 Cardiology Visit Report Comments: See Note; NOTES: [facility] [address] [place] [address]. [address] [place] [address] OFFICE VISIT Date of Service: 10/07/21 MR#: [id number] Acct: [id number] Name: OMAIRA OLIVER Rep #: [id number] : 1940 Provider: Dr. Brad preston MD Age/Sex: 81/F Location: [facility] [place] Status: Signed HPI [facility] History of Present Illness Details: This is a 81-year-old white male who presents today for outpatient cardiovascular follow-up of a history of underlying valvular heart related issues, diastolic dysfunction, pulmonary hypertension, hyperlipidemia, and hypertension. Compared to her visit approximately 1 year ago she appears to be doing well at this time from a cardiac standpoint. The patient denies symptoms considered classic for angina pectoris, CHF / pulmonary edema (with respect to orthopnea / PND), ongoing palpitations, or near syncope / syncope. The patient denies ongoing peripheral pitting edema. She states her main concerns have been recent issues with GERD and diverticular disease. She did have lipid labs performed today. Her total cholesterol is 149 with an LDL 90 and an HDL of 46. Her triglycerides were 66. She believes they have come under better control as she has stopped eating cheese. She also had a transthoracic echocardiogram performed in July of this year. The results are as noted below. They were reviewed with her. Intake Vital Signs 10/07/21 10:14 Height 5 ft 3 in Weight: 147 lb 5 oz BP 110/60 Blood Pressure Location Lt brachial Position Sitting Respiration 18 Pulse 80 Pulse Source Auscultation Intake Visit Reasons: 1 Y FU Admitting Supervisor Required: No Accompanied by: Self Allergies lidocaine Adverse Reaction (Mild, Verified 10/07/21 10:17) shaking cortisone Adverse Reaction (Verified 10/07/21 10:17) Nausea, hot flashes, and passing out hydrochlorothiazide Adverse Reaction (Verified 10/07/21 10:17) Other morphine Adverse Reaction (Verified 10/07/21 10:17) Other nitrofurantoin [From Macrobid] Adverse Reaction (Verified 10/07/21 10:17) Other Medications amlodipine 5 mg PO DAILY 08/28/17 [History Confirmed 10/07/21] calcium-vitamin D3-vitamin K 500 mg-500 unit-40 mcg chewable tablet 1 tab PO QDAY tab 07/03/18 [History Confirmed 10/07/21] cholecalciferol (vitamin D3) 125 mcg (5,000 unit) tablet 5,000 unit PO QDAY 07/08/18 [History Confirmed 10/07/21] xdnulgi-vycwrlwxdgmkc-apnspbk e 250 mg-250 mg-65 mg tablet 1 tab PO Q6H PRN tab 09/06/20 [History Confirmed 10/07/21] hydroxychloroquine 200 mg tablet 200 mg PO DAILY 09/06/20 [History Confirmed 10/07/21] nystatin 100,000 unit/mL oral suspension 1 ml PO DAILY 09/06/20 [History Confirmed 10/07/21] clobetasol 0.05 % topical gel 1 applic TOPICAL DAILY gm 02/18/21 [History Confirmed 10/07/21] zinc 50 mg tablet 50 mg PO DAILY 02/18/21 [History Confirmed 10/07/21] dicyclomine 10 mg capsule 10 mg PO BID 10/07/21 [History Confirmed 10/07/21] pantoprazole 20 mg tablet,delayed release 20 mg PO DAILY 10/07/21 [History Confirmed 10/07/21] PFSH Medical History Acute hemorrhoid Anemia Back pain Basal cell carcinoma Diastolic dysfunction Difficulty balancing Diverticulitis Essential hypertension GERD (gastroesophageal reflux disease) Hiatal hernia History of aortic valve disorder Knee pain Limb weakness Neck pain Nonrheumatic mitral valve regurgitation Nonrheumatic tricuspid (valve) insufficiency GERRY (obstructive sleep apnea) Pulmonary hypertension Trigger finger of thumb Surgical History h/o left carpal tunnel release H/O: hysterectomy History of back surgery History of partial knee replacement History of spinal fusion History of tonsillectomy Hx of carpal tunnel repair Hx of cholecystectomy Hx of cholecystectomy Hx of hysterectomy Hx of tonsillectomy s/p right knee UKA spinal fusion Status post trigger finger release Family History Mother Hypertension Father Hypertension Grandmother CVA (cerebral vascular accident) Grandfather Myocardial infarction Grandfather Myocardial infarction Other Cervical cancer Lung cancer Social History Smoking Status: Never smoker alcohol intake: never substance use type: does not use ROS Const Const: Negative for fatigue, weakness, frequent falls, excessive sweating, weight gain or weight loss Eyes Eyes: Negative for transient loss of vision, blurry vision or change in vision ENT ENT: Negative for dizziness or balance problems Cardio Chest Pain: No Palpitations: No Edema: None Muscle aches with walking: None Resp Respiratory: Negative for SOB with activity or SOB at rest GI GI: Negative vomiting or vomiting blood/hematemesis : Negative for hematuria Musc Musc: Negative for muscle aches/ myalgia, muscle weakness, joint pain or balance problems Skin Skin: Negative non-healing lesions or rash Neuro Neuro: Negative for dizziness, lightheadedness, orthostatic symptoms, frequent falls, weakness or blurry vision Jonas Hematologic/Lymphatic: Negative for easy bleeding Endo Endo: Negative for fatigue or excessive sweating Psych Psych: Negative for anxiety or depression Allergy Allergy/Immunology: Negative for hives and Negative for rash Cardiology Exam Const Appearance: cooperative, healthy appearing, comfortable, no acute distress, well developed and well groomed Nutritional Appearance: overweight Orientation: alert, awake and oriented x3 Head Head: normal to inspection, normocephalic and atraumatic Ears: hearing grossly normal bilaterally Nose: external nose normal Face and Sinus: face symmetric Eyes Eyelids: eyelids normal Conjunctivae: conjunctivae normal Pupils: PERRL EOM: EOM intact bilaterally Neck Neck: normal visual inspection and full ROM Carotids: normal carotid upstroke Chest Chest inspection: normal inspection of the chest, symmetric chest movement and normal respiratory effort Auscultation: Bilateral: Clear to Auscultation Cardio Rate: regular rate Rhythm: regular rhythm Heart sounds: S1 normal and S2 normal GI GI: normal to inspection, soft and bowel sounds present Supplemental Info Supplemental Information Transthoracic echocardiogram: 03/27/2019 Interpretation Summary Left ventricular systolic function is normal. The estimated ejection fraction is 65 %. The left atrium is moderately enlarged. The right atrium is mildly enlarged. There is moderate mitral annular calcification. Extension of the mitral annular calcification onto the posterior mitral valve leaflet. Mild (1+) mitral valve insufficiency. Trivial tricuspid valve insufficiency. Mild focal aortic valve calcification. Trivial pulmonic valve insufficiency. Right ventricular systolic pressure estimated to be 28 mmHg. Diastolic function is indeterminate. Cardiogram: 08-17-2021 Interpretation Summary Left ventricular systolic function is normal. The estimated ejection fraction is 65 %. The left atrium is mildly enlarged. There is moderate mitral annular calcification. Extension of the mitral annular calcification on the base of the posterior mitral valve leaflet. Mild (1+) mitral valve insufficiency. Mild tricuspid valve insufficiency. Trivial pulmonic valve insufficiency. Right ventricular systolic pressure estimated to be 31 mmHg. Diastolic function is indeterminate. DATE OF SERVICE: 01/23/2017 EXERCISE TOLERANCE TEST: The patient underwent pharmacologic (regadenoson) evaluation with a peak heart rate of 93 beats per minute (63% predicted maximum heart rate) and a peak blood pressure of 156/90 mmHg. The baseline ECG demonstrated normal sinus rhythm. The peak pharmacologic ECG demonstrated no obvious ECG changes. There were no obvious cardiac dysrhythmias pretest or during pharmacologic infusion with a rare PAC during recovery. There was no report of chest discomfort during pharmacologic infusion or recovery. The examination was discontinued secondary to completion of protocol. IMPRESSION: 1. Pharmacologic (regadenoson) evaluation. 2. Peak pharmacologic ECG with no obvious ECG changes. 3. Rare premature atrial contraction during recovery. 4. Nuclear images pending. MYOCARDIAL PERFUSION IMAGING STUDY: TECHNIQUE: The patient was injected with 11.0 mCi of Tc99m Cardiolite and subsequently rest SPECT Cardiolite nuclear imaging was obtained in the horizontal long, vertical long and short axes views. The patient underwent pharmacologic (regadenoson) evaluation with a peak heart rate of 93 beats per minute (63% predicted maximum heart rate) and a peak blood pressure of 156/90 mmHg. The patient was injected with 33.7 mCi of Tc99m Cardiolite and subsequently stress SPECT Cardiolite nuclear imaging was obtained in the horizontal long, vertical long and short axes views. A gated Cardiolite study at peak stress was obtained. INTERPRETATION: Rest and stress SPECT Cardiolite nuclear imaging status post realignment, normalization and attenuation correction demonstrates the appearance of relative uniform tracer uptake and myocardial perfusion appearing within normal limits. There is notation of end systolic thickening and brightening. The gated Cardiolite study demonstrates myocardial thickening and inward wall motion. The reported LVEF is 81%. There are no myocardial perfusion deficits noted on the rest or stress polar map images. IMPRESSION: 1. Rest and stress SPECT Cardiolite nuclear imaging demonstrate relative uniform tracer uptake and myocardial perfusion appearing within normal limits. 2. The gated Cardiolite study reports an LVEF of 81%. Labs: LDL Cholesterol 90 mg/dL (0-130) HDL Cholesterol 46 mg/dL (40-) Triglycerides 66 mg/dL (-199) VLDL Cholesterol 13 mg/dL (5-40) Diagnostics: Electrocardiogram Echocardiogram Stress Test NM Chest X-Ray Venous Doppler Study Pulmonary: No Data to Display Assessment and Plan Assessment and Plan (1) Nonrheumatic mitral valve regurgitation: Status: Acute Plan - Dr. Brad Holguin MD: She does have a history of MR. There appears to be no significant change based upon her history or examination. Her echocardiogram is noted. At the present time she will continue her current therapy and follow-up. (2) Nonrheumatic tricuspid (valve) insufficiency: Status: Acute Plan - Dr. Brad Holguin MD: She does have a history of TR as well. Again she appears to be stable at this time. She will continue her current therapy and follow-up. (3) Diastolic dysfunction: Status: Acute Plan - Dr. Brad Holguin MD: She has a history of diastolic dysfunction. Thus far she appears to be stable with no obvious symptoms of diastolic mediated CHF/pulmonary edema. She will continue her current medical management and follow-up. (4) Pulmonary hypertension: Status: Acute Plan - Dr. Brad Holguin MD: Her most recent echocardiogram is noted. Her estimated RV systolic pressure appears to be borderline to slightly elevated. In comparison to her previous study there appears to be no significant change. She will continue to be followed. (5) Hyperlipemia: Status: Chronic Qualifiers: Hyperlipidemia type: unspecified Qualified Code(s): E78.5 - Hyperlipidemia, unspecified Plan - Dr. Brad Holguin MD: Her lipid labs appear to be under good control at this time. She will continue her dietary therapy. Thus far she has not required lipid-lowering therapy. (6) Essential hypertension: Status: Chronic Plan - Dr. Brad Holguin MD: Her blood pressure appears to be under good control as well. She will continue medical management. Plan Details Other Medications: Discontinued: aspirin Discontinued Reason: Order Changed 81 mg PO QDAY Additional Comments: She will be scheduled for a visit approximately 1 year unless needed sooner. Thank you for allowing me to participate in the care of your patient. Please don't hesitate to call if any issues arise. This note was generated using a voice recognition system and there may be incorrect words, spelling or punctuation that were not noted when reviewing the office note prior to saving. Follow Up: 1 Year (with PFM ) COVID (Procedure Consent) Procedure Criteria Procedure Criteria: Yes Elective The surgeon/proceduralist and patient have discussed in detail the risk of exposure to and/or potential harm posed by the COVID-19 virus with having a surgery/procedure at this time versus the risk of??? delaying the surgery/procedure. It is not possible to know either the risk of delaying the surgery or procedure or chance of getting an infection with perfect accuracy, but a joint decision was made between the patient and the surgeon/proceduralist ???to proceed at this time with the scheduled surgery/procedure as indicated on the consent form. Coding Level of Care Code Off vis,est,level 3 Diagnoses Nonrheumatic mitral valve regurgitation I34.0 Nonrheumatic tricuspid (valve) insufficiency I36.1 Diastolic dysfunction I51.9 Pulmonary hypertension I27.20 Hyperlipemia E78.5 Hyperlipidemia type: unspecified Essential hypertension I10 Coding Level of Care Code Off vis,est,level 3 Diagnoses Nonrheumatic mitral valve regurgitation I34.0 Nonrheumatic tricuspid (valve) insufficiency I36.1 Diastolic dysfunction I51.9 Pulmonary hypertension I27.20 Hyperlipemia E78.5 Hyperlipidemia type: unspecified Essential hypertension I10 10/07/21 1055 <Electronically signed by Brad Holguin MD> Date Brad Holguin MD Cosigner Signature: Date (if applicable) CC: DO Raquel Sylvester DO Work Phone: Start: 09-30-2021 End: 09-30-2021 PT D/C Summary (1) Comments: See Note; NOTES: [facility] [place] [address] / REHABILITATION SERVICES DISCHARGE SUMMARY MR#: [id number] Acct: [id number] Name: OMAIRA OLIVER Rep #: [id number] : 1940 81 From: Sherif Richter PT, ATC Referring Dr.: Dr. Dallas Tomlin DO Status: R EG RCR Insurance: [employer] [facility] S[employer] PAY INSURANCE It has been my pleasure to treat OMAIRA OLIVER referred by Dr. Dallas Tomlin DO, with the diagnosis of R rotator cuff tendonitis, biceps tendonitis for a total of 9 visit(s). Discharge Date: Please see the following information for a summary of their discharge status. Subjective: Pt reports her pain is definitely less now R shoulder Pain Intensity (Out of 10): 2 % Improvement: 40 Objective/Function: R shoulder pain is 2/10. R shoulder strength is 5/5 with exception to abd= 3+/5 and is limited by pain. R shoulder ROM: flex= 140, abd= 110. Pt is I with HEP Goal 1:: Decrease R shoulder pain x 50% to aid with sleep Goal Progress: Goal Met Goal 2:: Increase R shoulder flex and abd ROM x 30 degrees to aid with overhead activity Goal 3:: Increase R shoulder strength x 1 grade to aid with IADL's Goal 4:: I with HEP Goal Progress: Goal Met Plan: DC to HEP If there are questions or concerns regarding this patient's physical therapy, please feel free to call me at [phone]. Thank you for the referral of this patient. Sincerely, Sherif Richter, PT, ATC Balance/Gait/Functional tests - Balance/Special Test Scores Quick DASH Score: 27.2725 <Electronically signed by Sherif Richter PT, ATC> 09/30/21 0954 CC: Dr. Dallas Tomlin, ; Dr. Raquel Mauro, DO [facility] Signed Raquel Mauro DO Work Phone: Start: 09-15-2021 End: 11-16-2021 Abdomen/Pelvis WITH Contrast Comments: See Note; NOTES: [facility] Imaging Services [address] [place] [id number] Abdomen/Pelvis WITH Contrast MR#: [id number] Acct: [id number] Name: OMAIRA OLIVER Rep #: [id number] : 1940 F 81 From: Brad Lester MD PCP: Dr. Raquel Mauro, DO Status: REG CLI Study: Abdomen/Pelvis WITH Contrast Date of Exam: Exam# [id number] Ordering Dr: Micki Skaggs o. STUDY: CT ABDOMEN AND PELVIS WITH CONTRAST REASON FOR EXAM: Female, 81 years old. EPIGASTRIC PAIN, reflux, vomiting RADIATION DOSAGE (If Supplied By Facility): CTDIvol = ( 15.76 ) mGy, DLP = ( 904.24 ) mGycm TECHNIQUE: Transaxial images were obtained from the dome of the diaphragm to the symphysis pubis without oral contrast. Oral and amp; IV Readi-CAT and amp; 100mL Isovue-300 was administered. Sagittal and coronal images were reconstructed. Individualized dose optimization techniques were used for this CT. COMPARISON: None. FINDINGS: Left lower lung calcified granulomas. The visualized portions of the heart are within normal limits. Normal liver. Small liver cysts. There are surgical clips in the gallbladder fossa consistent with a prior cholecystectomy. Normal spleen. Normal pancreas. Normal bilateral adrenal glands. Normal right kidney. Normal left kidney. Normal visualized stomach. 1.4 cm duodenal fourth segment diverticulum. Normal small intestine. Enteric contrast reaches the cecum. There are multiple colonic diverticula consistent with diverticulosis. The appendix is visualized and appears normal. Normal abdominal aorta. Normal inferior vena cava. Normal retroperitoneum. Normal urinary bladder. There is absence of the uterus consistent with a prior hysterectomy. Normal abdominal wall. Normal osseous structures. CT/Abdomen/Pelvis WITH Contrast IMPRESSION: No acute abnormal finding in the abdomen or pelvis. No finding of obstruction. 1.4 cm duodenal diverticulum. Electronically Signed: Brad Lester MD at 23:08 EDT Tel , Service support , CC: JJ ZAMORA; Dr. Raquel Mauro, DO Dimmer Board Operator: Signed Raquel Mauro DO Work Phone: Start: 09-02-2021 End: 09-02-2021 Inital Evaluation (1) - PT Comments: See Note; NOTES: [facility] [address] [place] [address] / REHABILITATION SERVICES INITIAL EVALUATION MR#: [id number] Acct: [id number] Name: OMAIRA OLIVER Rep #: [id number] : 1940 81 From: Sherif Richter PT, ATC Referring Dr.: Dr. Dallas Tomlin DO Status: R EG RCR [facility] Patient's Visit Information OMAIRA OLIVER is a 81 year old F referred to Physical Therapy by Dr. Dallas Tomlin DO with a diagnosis of R rotator cuff tendonitis, biceps tendonitis. Date of Evaluation: 09/02/21 Physical Therapist: Sherif Richter, PT, ATC - Visit Plan Frequency: 2-3x /Week Duration: 4-6 Weeks Plan: R shoulder rot cuff strengthening, scap stab ex's, UBE, and HEP - Subjective Pt reports R shoulder has been sore for more than 4 mos. Pt reports her pain had an insidious onset in nature. Pt reports she has pain in the biceps region as well as her shoulder. Pt notes any reaching out in front of her or behind her increases pain. Pt also notes any overhead lifting increases her pain. Pt is R hand dominant. Pt has had a recent xray which revealed no significant findings. Pt denies tingling or numbness at this time. Pt reports occasional sleep difficulty at this time. Pt reports she is unable to open a jar at this time secondary to pain. 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 Pt currently reports her R shoulder pain is 3/10, but increases to 6/10 at worst (lifiting heavy jars out of cabinet) - Pain R shoulder Pain Intensity (Out of 10): 3 Pain Intensity Range: 6 - Objective Neuro: B UE sensation is WNL to light touch. B bicepital reflex= 2/3. Palpation: Pt is very tender throughout the LHB and supraspinatus tendons. No obvious deformities present at this time. ROM: L shoulder flex= 145, abd= 145, ER= 55, IR WNL; R shoulder flex= 105, abd= 80, ER= 55, IR moderately limited. MMT: L shoulder is 5/5 throughout, while R shoulder is 3+/5 and painful. Special test: Pos empty can test and speeds test - Balance/Special Test Scores Quick DASH Score: 43.1800 - Goals Goal 1:: Decrease R shoulder pain x 50% to aid with sleep Goal Time Frame: 4-6 Weeks Goal 2:: Increase R shoulder flex and abd ROM x 30 degrees to aid with overhead activity Goal Time Frame: 4-6 Weeks Goal 3:: Increase R shoulder strength x 1 grade to aid with IADL's Goal Time Frame: 4-6 Weeks Goal 4:: I with HEP Goal Time Frame: 4-6 Weeks - Rehabilitation Potential Physical Therapy Diagnosis: Pt has R shoulder pain, weakness, and limited ROM secondary to R shoulder rot cuff syndrome Rehabilitation Potential: Good - Anticipated Interventions Patient/Client Instruction: Educate patient on: Condition, Plan of Care For the Purpose of:: To improve self management Therapeutic Exercise to Include: Strength training, Endurance training, Flexibilty training, Active ROM, Scapular Strength/Stabilization For the Purpose of:: To decrease pain, To increase ROM, To improve muscle performance and motor function Cryotherapy (ice pack, ice massage): Yes For the Purpose of:: To decrease pain Thank you for the opportunity to evaluate your patient. For Medicare and Medicare HMO plans, please review the plan of care and approve it. It will need to be FAXED BACK to us at [phone] for Medicare purposes. For Medicare only, by signing this I certify the plan of care. Please let me know if there are questions or concerns regarding this plan of care. Physician Signature: _Date: <Electronically signed by Sherif Richter PT, ATC> 09/02/21 1012 CC: Dr. Dallas Tomlin, DO; Dr. Raquel Mauro DO [facility] Signed Raquel Mauro DO Work Phone: Start: 08-16-2021 End: 08-17-2021 Echo Complete Comments: See Note; NOTES: [facility] Cardiovascular Services [address] [place], [place] [address] [address] Echo Complete 08/16/21 0957 MR#: [id number] Acct: [id number] Name: OMAIRA OLIVER Rep #: [id number] : 1940 81 From: Brad Holguin MD Attending Dr: Dr. Brad Holguin MD Status: RE [facility] Ordering Dr: Brad Holguin MD Date: 08/16/21 Location: [facility] Sex: F C Admitted: Reason For Study: VALVULAR HEART DISEASE Procedure This was a 2D Doppler, Color Flow transthoracic echocardiogram. The exam was of adequate technical quality. Exam performed in department. Left Ventricle Normal LV size. Left ventricular systolic function is normal. The estimated ejection fraction is 65 %. Diastolic function is indeterminate. No regional wall motion abnormalities noted. Right Ventricle Normal RV size. Normal systolic function. Atria The left atrium is mildly enlarged. Normal right atrium. No doppler evidence for ASD. Mitral Valve There is moderate mitral annular calcification. Extension of the mitral annular calcification on the base of the posterior mitral valve leaflet. Mild (1+) mitral valve insufficiency. Tricuspid Valve Normal tricuspid valve. Mild tricuspid valve insufficiency. Right ventricular systolic pressure estimated to be 31 mmHg. Aortic Valve Trisinus/trileaflet aortic valve. Normal aortic valve. Pulmonic Valve The pulmonic valve is not well visualized. Trivial pulmonic valve insufficiency. Great Vessels Normal sized aortic root. Pericardium/Pleural No pericardial effusion. MMode/2D Measurements Calculations LVIDd: 4.3 cm IVSd: 0.66 cm Ao root diam: 3.7 cm LVIDs: 2.7 cm LVPWd: 0.81 cm RVDd: 3.3 cm FS: 37.7 % LAV(MOD-bp): 47.5 ml LA A4 area: 16.8 cm2 LA dimension(2D): 3.7 cm LAV(MOD-bp) Indexed: 27.8 ml/m2 LAV(MOD-sp2): 54.4 ml LAV(MOD-sp4): 44.1 ml RA A4 area: 15.8 cm2 Doppler Measurements Calculations MV E max cierra: 105.8 cm/sec Lat Peak E' Cierra: 6.3 cm/sec Med Peak E' Cierra: 6.2 cm/sec MV A max cierra: 129.5 cm/sec E/E' lat: 16.7 E/E' med: 17.1 MV E/A: 0.82 MV V2 max: 135.1 cm/sec Ao V2 max: 185.7 cm/sec LV V1 max: 152.4 cm/sec MV max P.3 mmHg Ao max P.8 mmHg LV V1 max P.3 mmHg MV V2 mean: 84.2 cm/sec Ao V2 mean: 126.6 cm/sec LV V1 mean P.5 mmHg MV mean P.2 mmHg Ao mean P.4 mmHg LV V1 mean: 99.6 cm/sec MV V2 VTI: 42.1 cm Ao V2 VTI: 37.8 cm LV V1 VTI: 31.9 cm TR max cierra: 262.9 cm/sec MV P1/2t-pr_phl: 118.0 msec TR max P.7 mmHg ECHO/Echo Complete Interpretation Summary Left ventricular systolic function is normal. The estimated ejection fraction is 65 %. The left atrium is mildly enlarged. There is moderate mitral annular calcification. Extension of the mitral annular calcification on the base of the posterior mitral valve leaflet. Mild (1+) mitral valve insufficiency. Mild tricuspid valve insufficiency. Trivial pulmonic valve insufficiency. Right ventricular systolic pressure estimated to be 31 mmHg. Diastolic function is indeterminate. _ Ordering Physician: Brad Holguin Referring Physician: RAQUEL MAURO Performed By: Florence Estrada, RDCS, RVT 08/17/21 1005 Date Brad Holguin MD CC: Dr. Raquel Mauro DO; Dr. Brad Holguin MD Date Dictated: 08/16/2157 Date Transcribed: 08/17/21 1005 Dim[place] Board Operator: Signed Raquel Mauro DO Work Phone: Start: 07-20-2021 End: 07-20-2021 Humerus min 2 Views Comments: See Note; NOTES: [facility] Radiology [address] [place] [address] Humerus min 2 Views MR#: [id number] Acct: [id number] Name: OMAIRA OLIVER Rep #: [id number] : 1940 F 81 From: Jeanmarie Barry MD PCP: Dr. Raquel Mauro DO Status: DEP AMB Study: Humerus min 2 Views Date of Exam: 07/20/21 Exam# [id number] Ordering Dr: Dallas Tomlin DO STUDY: X-RAY - RIGHT HUMERUS REASON FOR EXAM: Female, 81 years old. Pain of the upper arm radiating to the shoulder, weakness of the hand TECHNIQUE: 2 view(s) of the humerus. COMPARISON: None. FINDINGS: Normal visualized humerus. There is no demonstrated fracture or osseous destructive process. There is no demonstrated soft tissue abnormality. RAD/Humerus min 2 Views IMPRESSION: Normal x-ray examination of the humerus. Electronically Signed: Jeanmarie Barry MD (Brooks) at 9:56 EDT , Service support , CC: Dr. Dallas Tomlin DO; Dr. Raquel Mauro DO Dim[place] Board Operator: Signed Raquel Mauro DO Work Phone: Start: 07-20-2021 End: 07-20-2021 Shoulder min 2 Views Comments: See Note; NOTES: [facility] Radiology [address] [place] [address] Shoulder min 2 Views MR#: [id number] Acct: [id number] Name: OMAIRA OLIVER Rep #: [id number] : 1940 F 81 From: Jeanmarie Barry MD PCP: Dr. Raquel Mauro DO Status: DEP AMB Study: Shoulder min 2 Views Date of Exam: 07/20/21 Exam# [id number] Ordering Dr: Dallas Tomlin DO STUDY: X-RAY - RIGHT SHOULDER REASON FOR EXAM: Female, 81 years old. Pain of the upper arm radiating to the shoulder, weakness of the hand TECHNIQUE: 4 view(s) of the shoulder. COMPARISON: None. FINDINGS: Normal glenohumeral articulation. Normal acromioclavicular joint. Normal acromion. Normal humeral head and visualized proximal humerus. The soft tissue structures are unremarkable. Normal visualized pulmonary apex. RAD/Shoulder min 2 Views IMPRESSION: Normal x-ray examination of the shoulder. Electronically Signed: Jeanmarie Barry MD (Brooks) at 9:57 EDT , Service support , CC: Dr. Dallas Tomlin DO; Dr. Raquel Mauro DO Dim[place] Board Operator: Signed Raquel Mauro DO Work Phone: Start: 07-20-2021 End: 07-20-2021 Orthopedic Visit Report Comments: See Note; NOTES: [facility] Orthopaedics Sports Medicine [address] [place] [address] OFFICE VISIT Date of Service: 07/20/21 MR#: [id number] Acct: [id number] Name: OMAIRA OLIVER Rep #: [id number] : 1940 Provider: Dr. Dallas roldan DO Age/Sex: 81/F Location: [facility] Status: Signed Intake Intake Visit Reasons: RIGHT SHOULDER/ARM Allergies lidocaine Adverse Reaction (Mild, Verified 07/20/21 09:24) shaking cortisone Adverse Reaction (Verified 07/20/21 09:25) Nausea, hot flashes, and passing out hydrochlorothiazide Adverse Reaction (Verified 07/20/21 09:24) Other morphine Adverse Reaction (Verified 07/20/21 09:24) Other nitrofurantoin [From Macrobid] Adverse Reaction (Verified 07/20/21 09:24) Other Medications amlodipine 5 mg PO DAILY 08/28/17 [History Confirmed 07/20/21] aspirin 81 mg tablet,delayed release 81 mg PO QDAY 07/03/18 [History Confirmed 07/20/21] calcium-vitamin D3-vitamin K 500 mg-500 unit-40 mcg chewable tablet 1 tab PO QDAY tab 07/03/18 [History Confirmed 07/20/21] cholecalciferol (vitamin D3) 125 mcg (5,000 unit) tablet 5,000 unit PO QDAY 07/08/18 [History Confirmed 07/20/21] kmvinan-anscjnhsvsawc-cagkybv e 250 mg-250 mg-65 mg tablet 1 tab PO Q6H PRN tab 09/06/20 [History Confirmed 07/20/21] hydroxychloroquine 200 mg tablet 200 mg PO DAILY 09/06/20 [History Confirmed 07/20/21] ibuprofen 200 mg tablet 200 mg PO Q6H PRN 09/06/20 [History Confirmed 07/20/21] nystatin 100,000 unit/mL oral suspension 1 ml PO DAILY 09/06/20 [History Confirmed 07/20/21] clobetasol 0.05 % topical gel 1 applic TOPICAL DAILY gm 02/18/21 [History Confirmed 07/20/21] zinc 50 mg tablet 50 mg PO DAILY 02/18/21 [History Confirmed 07/20/21] meloxicam 7.5 mg tablet 7.5 mg PO DAILY #35 tab 07/20/21 [Rx Confirmed 07/20/21] PFSH Medical History (Updated 07/20/21 @ 10:[address] Dallas Tomlin DO) Acute hemorrhoid Anemia Back pain Basal cell carcinoma Diastolic dysfunction Difficulty balancing Essential hypertension GERD (gastroesophageal reflux disease) Hiatal hernia History of aortic valve disorder Knee pain Limb weakness Neck pain Nonrheumatic mitral valve regurgitation Nonrheumatic tricuspid (valve) insufficiency GERRY (obstructive sleep apnea) Pulmonary hypertension Trigger finger of thumb Surgical History h/o left carpal tunnel release H/O: hysterectomy History of back surgery History of partial knee replacement History of spinal fusion History of tonsillectomy Hx of carpal tunnel repair Hx of cholecystectomy Hx of cholecystectomy Hx of hysterectomy Hx of tonsillectomy s/p right knee UKA spinal fusion Status post trigger finger release Family History Mother Hypertension Father Hypertension Grandmother CVA (cerebral vascular accident) Grandfather Myocardial infarction Grandfather Myocardial infarction Other Cervical cancer Lung cancer Social History (Updated 02/18/21 @ 12:[address] Dallas Tomlin DO) Smoking Status: Never smoker alcohol intake: never substance use type: does not use HPI RIGHT SHOULDER/ARM Details: Parts of this documentation were recorded by a scribe, this documentation accurately reflects the service provided and the decisions made by me, Dr. Dallas Tomlin DO 07/20/21 3712. OMAIRA OLIVER is a 81 year old F here today for her right shoulder pain. Patient states pain first began as biceps pain then is now having deltoid pain. Onset: 3 months. Denies numbness, tingling or other associated symptoms. Reports constant ache. Patient states the right arm is now becoming stiff. Patient denies ever seeing bruising present. Patient states she is now having her bar catcher effected with her right hand, which is new. Denies using any ice packs and heat applications. Denies taking anything OTC for pain relief. Denies any accident or injury, PT, injections, and surgeries with her right arm. Pain began gradually. Right hand dominant. Ortho Exam General General: Yes no acute distress and Yes well groomed Neurologic: Yes alert and Yes oriented x3 Psychologic: Yes reasonable and appropriate Right Shoulder Skin/Wound: No ecchymosis, No erythema and No swelling Testing: Positive Hawkin's, TTP Biceps, TTP AC Joint and PROM-Forward Elevation 0-180; Negative AROM-Forward Elevation 0-180 (115) or AROM-External Rotation at 90 0-60 SHOULDER: no joint effusion biceps tenderness full abduction 5/5 abduction strength 55 degrees external rotation 85 degrees internal rotation Supplemental Info 07/20/2021 x-ray right shoulder: No acute findings Coding Level of Care Code Off vis,est,level 4 Diagnoses Impingement syndrome of right shoulder M75.41 Biceps tendonitis on right M75.21 Assessment and Plan Assessment and Plan (1) Impingement syndrome of right shoulder: Status: Acute (2) Biceps tendonitis on right: Status: Acute Plan - Dr. Dallas Tomlin, DO: Personally reviewed the patient's medical history, medications, surgeries and recent exams if available. Obtained X-rays of patient's right shoulder and right humerus. Personally reviewed X-rays. See chart for further details. Patient is showing signs of rotator cuff tendinitis and biceps tendinitis without injury Treatment options: steroid injections, anti-inflammatory medication, physical therapy for rotator cuff program. Explained patient does not have anything abnormal noted on her x-rays and no arthritis is noted. Patient would like to proceed with an anti-inflammatory and with physical therapy, she has had adverse reactions to steroid injections in the past where she has become lightheaded and flushed and wishes to avoid this if possible Advised patient to d/c ibuprofen. Patient will begin on meloxicam 7.5mg and will increase after a few days if tolerates to 15 mg for 3 weeks. All questions answered. Patient in agreement of plan. Follow up in 8 weeks or sooner if pain, swelling, numbness or associated symptoms, or concerns develop. Plan Details Other Medications: New: meloxicam (Mobic) Take 1 tablet/day for 1 week if no side effect may increase to 2 tablets daily. Do not take in conjunction with ibuprofen or other NSAID. 7.5 mg PO DAILY 35 tabs 0RF Other Orders: Orders: Humerus min 2 Views Today M79.601 Shoulder min 2 Views Today M79.601 07/20/21 1022 <Electronically signed by Dallas Tomlin DO> Date Dallas Tomlin DO Cosigner Signature: Date (if applicable) CC: Raquel Mauro DO Work Phone: Start: 06-06-2021 End: 06-06-2021 Re-Evaluation - PT (1) Comments: See Note; NOTES: [facility] Physical Therapy [facility] [place] [address] / REEVALUATION / MEDICARE RECERTIFICATION PHYSICAL THERAPY MR#: [id number] Acct: [id number] Name: OMAIRA OLIVER Rep #: [id number] : 1940 81 From: Shamika Shearer MPT Referring DrTone: Dr. Dallas Tomlin DO Status:REG R [facility]ANCE Dr. 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 Please see the progress note below for an update on the physical therapy plan of care! Subjective: Pt had no pain anywhere but the next day it was back. Overall her pain is better. Overall her knee is 90% better overall. Her R knee is still numb but compared to what it was she is much better. Somedays she is 100% better. Her back is about 40% better. IF she does anything bending fw she pays for it the rest of the day. She describes the pain as an ache... she puts her knees to her chest and that gives her some relief. She goes to the pool 3X/ week. She is able to walk about 1 mile with no issue which she was not able to do before. Stairs: somedays she can go right up and other days not... not pulling self up like she was. Objective/Function: Stairs: up and down stairs recip with no handrail and not pulling self up the stairs. Gait: walks much straighter with more of an equal stance time on B LE's. Pt feels I with her AT exercises Plan Plan: Pt will do her own I H W AT program. She will contact me within the month (Jul 07) to see if she still needs additional guidance through PT on progression or if her pain gets worse. Hold chart until 07-05-2021. Goals Goal 1:: I HEP Goal Time Frame: 4-6 Weeks Goal Progress: Goal Met Goal 2:: Be able to walk without having R knee pain during her normal ADL's Goal Time Frame: 4-6 Weeks Goal Progress: Goal Met Goal 3:: Increase posture to be able to stand with upright posture ( not shifted away from the R side) Goal Time Frame: 4-6 Weeks Goal Progress: Progressing Goal 4:: Be able to ascend and descend the stairs recip without having to really work to drive through the R LE to ascend the stairs Goal Time Frame: 4-6 Weeks Goal Progress: Goal Met Goal 5:: Decrease overall freq of R knee pain Goal Time Frame: 4-6 Weeks Goal Progress: Goal Met Anticipated Interventions Patient/Client Instruction: Educate patient on: Condition, Plan of Care For the Purpose of:: To decrease pain, To increase ROM, To improve nutrient delivery to tissue, To improve muscle performance and motor function, To improve ability to perform ADL's, To increase tolerance to activity/condition/position, To improve performance and independence with ADL's, To improve gait and locomotor functions, To improve health of tissue, To decrease soft tissue restriction, To increase flexibility/ROM Therapeutic Exercise to Include: Strength training, Endurance training, Body mechanics, Postural training, Flexibilty training, Gait and locomotor training, In an aquatic setting , Passive ROM, Active ROM, Dynamic Lumbar Stabilization For the Purpose of:: To decrease pain, To increase ROM, To improve nutrient delivery to tissue, To improve muscle performance and motor function, To improve ability to perform ADL's, To increase tolerance to activity/condition/position, To improve performance and independence with ADL's, To decrease level of supervision to perform tasks, To improve gait and locomotor functions, To improve health of tissue, To increase flexibility/ROM Functional Training to Include: Gait training For the Purpose of:: To improve gait and locomotor functions Please do not hesitate to contact me at [phone] by phone or if you have questions or concerns regarding this new plan of care! Sincerely, GEORGINA Farley <Electronically signed by Shamika ERICKSON> 06/06/21 155 CC: Dr. Dallas Tomlin DO; Dr. Raquel Mauro DO Signed For Medicare only, by signing this I certify the plan of care. Physicians Signature Date Raquel Mauro DO Work Phone: Start: 05-26-2021 End: 05-26-2021 SCRN MAMM (CAD)W/YEISONJessica JOHNSON Comments: See Note; NOTES: [facility] Imaging Services [address] [place] [address] SCRN MAMM (CAD)W/YEISONJessica JOHNSON MR#: [id number] Acct: [id number] Name: OMAIRA OLIVER Clement Rep #: [id number] : 1940 F 81 From: Ian gomes MD PCP: Dr. Raquel Mauro, DO Status: [facility] Study: SCRN MAMM (CAD)W/YEISON BILAT Date of Exam: 12/16 Exam# [id number] Ordering Dr: Raquel Mauro DO MAMMOGRAPHY - BILATERAL SCREENING REASON FOR EXAM: Female, 81 years old. Routine annual screening examination. PERTINENT HISTORY: Non-contributory. TECHNIQUE: Digital bilateral breast yeison (3D mammographic acquisition) in the CC and MLO projections. 2-D mediolateral oblique (MLO) and craniocaudad (CC) views of both breasts were obtained. CAD: Full Field Digital Mammography with Computer Added Detection was performed. COMPARISON: Comparison is made with prior study dated 05/25/2020 and 05/22/2019. FINDINGS: Breast Composition: The breasts are heterogeneously dense, which may obscure small masses. There are no dominant masses or suspicious calcifications. Stable benign-appearing bilateral axillary lymph nodes. No other significant abnormalities are identified. There has been no significant change since the prior study. BI/SCRN MAMM (CAD)W/YEISON BILAT IMPRESSION: Stable bilateral screening mammogram. Yearly follow-up mammogram recommended. (A) ASSESSMENT CATEGORY: BIRADS Category 2: Benign. A letter regarding these results will be sent to the patient by the facility within 30 days. Approximately 10% of breast cancers are not detected by mammography. A normal mammogram should not delay biopsy of a clinically suspicious abnormality. [id number] Electronically Signed: Ian Bhatia MD at 12:49 EDT , Service support , CC: Dr. Raquel Mauro, Dim[place] Board Operator: Signed Raquel Mauro DO Work Phone: Start: 05-04-2021 End: 05-04-2021 Re-Evaluation - PT (1) Comments: See Note; NOTES: [facility] [address] [place] [address] / REEVALUATION / MEDICARE RECERTIFICATION PHYSICAL THERAPY MR#: [id number] Acct: [id number] Name: OMAIRA OLIVER Rep #: [id number] : 1940 80 From: Shamika ERICKSON Referring Dr.: Dr. Dallas Tomlin DO Status:REG RCR Insurance: [facility] SELF PAY INSURANCE Dr. 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 Please see the progress note below for an update on the physical therapy plan of care! Subjective: Pt reports that he pain comes and goes. She feels that she needs to stretch contious. She has some days with pain and other days without pain. SHe plans on coming 2 days/week. She feel that AT 1X/ week would still be helpful for progressions. She has Silver Sneakers. Pt feels that she more functional. She reports that she is better on stairs and can go up and down without pulling self up but her knee is acting up today. She is back to gardening. Objective/Function: Stairs: up with no railing using her R leg to really drive up the stair with an ataligic gait today (pt warned me that she was having a painful day). Downstairs recip with one kenny d on the railing. Pt sill likes to walk shifted away from the R side but it is improved stance time on the R LE. Plan Plan: Pt will do her own I H W AT program. She will contact me within the month (June 04) to see if she still needs additional guidance through PT on progression or if her pain gets worse. Hold chart until 06-04-2021. Goals Goal 1:: I HEP Goal Time Frame: 4-6 Weeks Goal Progress: Goal Met Goal 2:: Be able to walk without having R knee pain during her normal ADL's Goal Time Frame: 4-6 Weeks Goal Progress: Progressing Goal 3:: Increase posture to be able to stand with upright posture ( not shifted away from the R side) Goal Time Frame: 4-6 Weeks Goal Progress: Progressing Goal 4:: Be able to ascend and descend the stairs recip without having to really work to drive through the R LE to ascend the stairs Goal Time Frame: 4-6 Weeks Goal Progress: Progressing Goal 5:: Decrease overall freq of R knee pain Goal Time Frame: 4-6 Weeks Goal Progress: Goal Met Anticipated Interventions Patient/Client Instruction: Educate patient on: Condition, Plan of Care For the Purpose of:: To decrease pain, To increase ROM, To improve nutrient delivery to tissue, To improve muscle performance and motor function, To improve ability to perform ADL's, To increase tolerance to activity/condition/position, To improve performance and independence with ADL's, To improve gait and locomotor functions, To improve health of tissue, To decrease soft tissue restriction, To increase flexibility/ROM Therapeutic Exercise to Include: Strength training, Endurance training, Body mechanics, Postural training, Flexibilty training, Gait and locomotor training, In an aquatic setting , Passive ROM, Active ROM, Dynamic Lumbar Stabilization For the Purpose of:: To decrease pain, To increase ROM, To improve nutrient delivery to tissue, To improve muscle performance and motor function, To improve ability to perform ADL's, To increase tolerance to activity/condition/position, To improve performance and independence with ADL's, To decrease level of supervision to perform tasks, To improve gait and locomotor functions, To improve health of tissue, To increase flexibility/ROM Functional Training to Include: Gait training For the Purpose of:: To improve gait and locomotor functions Please do not hesitate to contact me at [phone] by phone or if you have questions or concerns regarding this new plan of care! Sincerely, Shamika Shearer, GEORGINA <Electronically signed by Shamika Sheaerr MPT> 05/04/21 1322 CC: Dr. Dallas Tomlin DO; Dr. Raquel Mauro DO Signed For Medicare only, by signing this I certify the plan of care. Physicians Signature Date Raquel Mauro DO Work Phone: Start: 03-03-2021 End: 03-04-2021 Inital Evaluation (1) - PT Comments: See Note; NOTES: [facility] [address] [place] [address] / REHABILITATION SERVICES INITIAL EVALUATION MR#: [id number] Acct: [id number] Name: OMAIRA OLIVER Rep #: [id number] : 1940 80 From: Shamika ERICKSON Referring Dr.: Dr. Dallas Tomlin DO Status: R EG RCR Insurance: [facility] SELF PAY INSURANCE Patient's Visit Information OMAIRA OLIVER is a 80 year old F referred to Physical Therapy by Dr. 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 Date of Evaluation: 03/03/21 Physical Therapist: GEORGINA Farley - Visit Plan Frequency: 2x /Week Duration: 6 Weeks Plan: 2X/ week for 6 weeks for AT for CORE stability, POSTURAL exercises, Hip and knee strength, stair negotiation ( increase drive through R knee painfree), deep water distraction, gait training, with HEP and stretching as needed. - Subjective Pt was here in July and was not completely healed but so much better than what it was. In 2017 she had R knee Partial TKR and inflammed IT band. She had a torn meniscus on MRI and Chiropractor and did heat and a vibrator and it was ok. She has had a back surgery in 1996 with titanium cage in it. Her back hurts with leaning over a bed, doing gardening. She now has L medial-anterior knee pain and some R lateral ankle pain. When she goes to stand up or walk for too long increases her pain. She still can not lift her R hip into flexion to go up steps.... because of pain ( medial knee pain). She can not kneel on her R knee. She has a foam roller and a vibrator - Pain Back pain Pain Intensity (Out of 10): 1 R knee pain Pain Intensity (Out of 10): 0 Pain Intensity Range: 3 Comment: with walking - Objective Gait: decreased stance time on the R leg. Observation: standing trunk shift away from the R side. Pt's R shoulder is lower than the L shoulder. Pt is able to walk on heels and toes but has increase pain on the R knee with heel walking. Trunk AROM: flexion 100%, Ext 50% ( has decreased extension onthe R side compared to the L). SB R 50% and L 75% and decreased Rot to the L. LE MMT: R hip flex 4-/5, L hip flex 4/5, B hip abd 4-/5, B hip ext 3-/5, B knee flex 4/5, B knee ext 4-/5. Palpation: tender R pes anser, and medial joint line. R knee flexion 125 degrees and 0 degrees ext. L knee flexion 120 degrees and 0 degrees ext. -SLUMP and -SLR. Stairs: pt struggles to drive through her R knee when ascending the steps and it also increases pain through her LB... using the handrail helps to get her to ascend the step - Goals Goal 1:: I HEP Goal Time Frame: 4-6 Weeks Goal 2:: Be able to walk without having R knee pain during her normal ADL's Goal Time Frame: 4-6 Weeks Goal 3:: Increase posture to be able to stand with upright posture ( not shifted away from the R side) Goal Time Frame: 4-6 Weeks Goal 4:: Be able to ascend and descend the stairs recip without having to really work to drive through the R LE to ascend the stairs Goal Time Frame: 4-6 Weeks Goal 5:: Decrease overall freq of R knee pain Goal Time Frame: 4-6 Weeks - Rehabilitation Potential Rehabilitation Potential: Good - Anticipated Interventions Patient/Client Instruction: Educate patient on: Condition, Plan of Care For the Purpose of:: To decrease pain, To increase ROM, To improve nutrient delivery to tissue, To improve muscle performance and motor function, To improve ability to perform ADL's, To increase tolerance to activity/condition/position, To improve performance and independence with ADL's, To improve gait and locomotor functions, To improve health of tissue, To decrease soft tissue restriction, To increase flexibility/ROM Therapeutic Exercise to Include: Strength training, Endurance training, Body mechanics, Postural training, Flexibilty training, Gait and locomotor training, In an aquatic setting , Passive ROM, Active ROM, Dynamic Lumbar Stabilization For the Purpose of:: To decrease pain, To increase ROM, To improve nutrient delivery to tissue, To improve muscle performance and motor function, To improve ability to perform ADL's, To increase tolerance to activity/condition/position, To improve performance and independence with ADL's, To decrease level of supervision to perform tasks, To improve gait and locomotor functions, To improve health of tissue, To increase flexibility/ROM Functional Training to Include: Gait training For the Purpose of:: To improve gait and locomotor functions Thank you for the opportunity to evaluate your patient. For Medicare and Medicare HMO plans, please review the plan of care and approve it. It will need to be FAXED BACK to us at [phone] for Medicare purposes. For Medicare only, by signing this I certify the plan of care. Please let me know if there are questions or concerns regarding this plan of care. Physician Signature: _Date: <Electronically signed by Shamika Shearer MPT> 03/04/21 1123 CC: Dr. Dallas Tomlin DO; Dr. Raquel Mauro DO Signed Raquel Mauro DO Work Phone: Start: 02-18-2021 End: 02-18-2021 Knee 4 or More Views Comments: See Note; NOTES: [facility] [address] [place] [address] Knee 4 or More Views MR#: [id number] Acct: [id number] Name: OMAIRA OLIVER Rep #: [id number] : 1940 F 80 From: Ian gomes MD PCP: Dr. Raquel Mauro DO Status: DEP AMB Study: Knee 4 or More Views Date of Exam: 02/18/21 Exam# [id number] Ordering Dr: Dallas Tomlin DO STUDY: X-RAY - RIGHT KNEE REASON FOR EXAM: Female, 80 years old. Pain TECHNIQUE: 4 view(s) of the knee. COMPARISON: Comparison is made with prior study 07/21/2020. FINDINGS: The patient is status post medial hemiarthroplasty. This is unchanged. Normal visualized proximal tibia and fibula. Normal proximal tibiofibular articulation. Normal medial femorotibial compartment. Normal lateral femorotibial compartment. Normal patellofemoral articulation. Persistent small joint effusion. RAD/Knee 4 or More Views IMPRESSION: Stable appearance of the prior medial hemiarthroplasty of the knee joint. Persistent small joint effusion. Electronically Signed: Ian Bhatia MD at 15:21 EDT , Service support , CC: Dr. Dallas Tomlin DO; Dr. Raquel Mauro DO Dimmer Board Operator: Signed Raquel Mauro DO Work Phone: Start: 02-18-2021 End: 02-18-2021 Orthopedic Visit Report Comments: See Note; NOTES: [facility] [address] [place] [address] OFFICE VISIT Date of Service: 02/18/21 MR#: [id number] Acct: [id number] Name: OMAIRA OLIVER Rep #: [id number] : 1940 Provider: Dr. Dallas roldan DO Age/Sex: 80/F [place] [facility] Status: Signed Intake Intake Visit Reasons: RIGHT KNEE Accompanied by: Self Is patient in pain?: No Allergies lidocaine Adverse Reaction (Mild, Verified 02/18/21 10:11) shaking cortisone Adverse Reaction (Verified 02/18/21 10:11) Nausea hydrochlorothiazide Adverse Reaction (Verified 02/18/21 10:11) Other morphine Adverse Reaction (Verified 02/18/21 10:11) Other nitrofurantoin [From Macrobid] Adverse Reaction (Verified 02/18/21 10:11) Other Medications Amlodipine [Norvasc] 5 mg PO DAILY 08/28/17 [History Confirmed 02/18/21] aspirin 81 mg tablet,delayed release 81 mg PO QDAY 07/03/18 [History Confirmed 02/18/21] calcium-vitamin D3-vitamin K 500 mg-500 unit-40 mcg chewable tablet 1 tab PO QDAY tab 07/03/18 [History Confirmed 02/18/21] cholecalciferol (vitamin D3) 125 mcg (5,000 unit) tablet 5,000 unit PO QDAY 07/08/18 [History Confirmed 02/18/21] gctzucx-adhfsbticwezw-unerqcj e 250 mg-250 mg-65 mg tablet 1 tab PO Q6H PRN tab 09/06/20 [History Confirmed 02/18/21] hydroxychloroquine 200 mg tablet 200 mg PO DAILY 09/06/20 [History Confirmed 02/18/21] ibuprofen 200 mg tablet 200 mg PO Q6H PRN 09/06/20 [History Confirmed 02/18/21] nystatin 100,000 unit/mL oral suspension 1 ml PO DAILY 09/06/20 [History Confirmed 02/18/21] clobetasol 0.05 % topical gel 1 applic TOPICAL DAILY gm 02/18/21 [History Confirmed 02/18/21] zinc 50 mg tablet 50 mg PO DAILY 02/18/21 [History Confirmed 02/18/21] [facility] Medical History Essential hypertension (Chronic) History of aortic valve disorder (Acute) GERRY (obstructive sleep apnea) (Chronic) Nonrheumatic tricuspid (valve) insufficiency (Acute) Nonrheumatic mitral valve regurgitation (Acute) Diastolic dysfunction (Acute) Pulmonary hypertension (Acute) Acute hemorrhoid (Acute) Anemia (Acute) Back pain (Acute) Basal cell carcinoma (Acute) Difficulty balancing (Acute) Hiatal hernia (Acute) Limb weakness (Acute) Neck pain (Acute) Trigger finger of thumb (Acute) GERD (gastroesophageal reflux disease) (Chronic) Knee pain (Resolved) Surgical History History of partial knee replacement (Acute) History of back surgery (Resolved) History of spinal fusion (Resolved) Hx of carpal tunnel repair (Resolved) Hx of cholecystectomy (Resolved) Hx of hysterectomy (Resolved) Hx of tonsillectomy (Resolved) Status post trigger finger release (Resolved) H/O: hysterectomy (Inactive) History of tonsillectomy (Inactive) Hx of cholecystectomy (Inactive) h/o left carpal tunnel release (Inactive) s/p right knee UKA (Inactive) spinal fusion (Inactive) Family History Mother Hypertension Father Hypertension Grandmother CVA (cerebral vascular accident) Grandfather Myocardial infarction Grandfather Myocardial infarction Other Cervical cancer Lung cancer Social History (Updated 02/18/21 @ 12:[address] Dallas Tomlin DO) Smoking Status: Never smoker alcohol intake: never substance use type: does not use HPI RIGHT KNEE: Details: Parts of this documentation were recorded by a scribe, this documentation accurately reflects the service provided and the decisions made by me, Dr. Dallas Tomlin DO 02/18/21 4392. OMAIRA OLIVER is a 80 year old F here today for flair up of right knee pain went to PT, pain does not let up. Last knee x-ray: 07/21/2020. Pain radiates to her RLL that stops above her ankle with c/o swelling. Patient feels she over did it when she recently traveled and walked approx 5 miles and couldn't walk the next day. Patient states when she went to PT, she states she feels she improved and went a total of 18 sessions. Pain with her right knee: medial, anterior, and lateral. Denies any burning pain of the right leg. Denies any hx of blood clots. Patient is wondering if this issue is stemming from her back. Patient has been recently seeing a chiropractor for pain relief. Patient has been taking Extra Strength Excedrin for pain relief. She states that when she is standing for long periods she has low back pain and with lumbar flexion she has increased back pain. Denies any s/sx of infection. ROS [facility] Reports system reviewed and no additional complaints, except as docu, Reports joint pain, Reports joint swelling, Reports radiating pain into limb Ortho Exam General General: Yes no acute distress Neurologic: Yes alert, Yes oriented x3 Psychologic: Yes reasonable and appropriate Right Knee Skin/Wound: No erythema, No ecchymosis, No swelling Homans Sign: No Knee ROM: Yes ROM-Extension -20 to 0, Yes ROM-Flexion 0-140 Examination: Yes Med jt line tenderness, Yes Lat jt line tenderness, Yes Crepitus, No Rodríguez's, Yes TTP Patellar tendon, Yes TTP Pes Anserine Stability: NML: Valgus 30, NML: Varus 30, 1+: Anterior Drawer, 1+: Posterior Drawer Patella Grind: No KNEE: varicose veins senile purpura no joint effusion exquisite bursa tenderness medial hamstring tenderness 3mm anterior posterior translation Supplemental Info 02/18/2021 x-ray right knee: Status post unicompartmental medial knee arthroplasty without sign of failure preserved joint space lateral patellofemoral compartments no acute findings Assessment Plan Problems 1. History of partial knee replacement Z96.659 2. Strain of hamstring insertion S76.319A 3. Pes anserinus bursitis of right knee M70.51 4. Lumbar degenerative disc disease M51.36 Plan Obtained X-rays of patient's right knee and lumbar spine. Personally reviewed x-rays. There is no obvious fracture, dislocation, or lucency noted. She does have a unilateral knee replacement, no signs of loosening or infection. Patient has tenderness of the patellar tendon and she has pain over her hamstring insertion site. She does have some DDD of the lumbar spine and she does have scoliosis which seems to be degenerative. The lumbar DDD can cause the radiating leg pain. Recommended a steroid injection in the burse but patient had a previous adverse reaction to the injection. Also recommended BioMed cream for the right knee. She will proceed with the topical cream along with PT for the knee and the lumbar spine. Also encouraged to take Aleve or Ibuprofen. Follow up as needed or sooner if pain, swelling, numbness or associated symptoms, or concerns develop. All questions answered. Patient in agreement of plan. Orders Orders: Knee 4 or More Views Today M25.561 Coding Level of Care Code Off vis,est,level 3 Diagnoses History of partial knee replacement Z96.659 Strain of hamstring insertion S76.319A Pes anserinus bursitis of right knee M70.51 Lumbar degenerative disc disease M51.36 02/18/21 1205 <Electronically signed by Dallas Tomlin DO> Date Dallas Tomlin DO Cosigner Signature: Date (if applicable) CC: Raquel Mauro DO Work Phone: Start: 09-15-2020 End: 09-15-2020 PT D/C Summary (1) Comments: See Note; NOTES: [facility] [address] [place] [address] / REHABILITATION SERVICES DISCHARGE SUMMARY MR#: [id number] Acct: [id number] Name: OMAIRA OLIVER Rep #: [id number] : 1940 80 From: Shamika ERICKSON Referring Dr.: Dr. Dallas Tomlin DO Status: R EG RCR [facility] It has been my pleasure to treat OMAIRA OLIVER referred by Dr. Dallas Tomlin DO, with the diagnosis of R IT Band Syndrome, HS tendonitis for a total of 19 visit(s). Discharge Date: 09/15/20 Please see the following information for a summary of their discharge status. Subjective: Pt reports 95% better. She is still struggling with the R knee and it is going down with curran. She struggles with putting her socks on. She struggles with pulling self up the steps. Her IT band is great. She lessoned her compression on her socks and that helped her swelling. Her knee feels like puffy. SHe has a decrease in sensation on her knee. Kneeling and the pressure on it she can not do. She does not follow up with Elder. Pt is up to 1.5 miles a day without issue and will progress to her 2.5 as able. R medial knee pain Pain Intensity (Out of 10): 3 R iT band pain Pain Intensity (Out of 10): 2 Hamstring pain Pain Intensity (Out of 10): 0 R Lat knee pain Pain Intensity (Out of 10): 1 R lateral calf pain Pain Intensity (Out of 10): 2 % Improvement: 95 Objective/Function: LE MMT: B hip flex 4/5, B knee ext 4/5, B knee flex 4+/5, B hip abd 4/5, B hip ext 3+/5). Gait: walks with equal stance time on B LE's. Stairs: pt struggles with ascending the stairs with her R LE and a hand rail due to weakness. Goal 1:: I HEP Goal Progress: Goal Met Goal 2:: Decrease R knee pain to 1/10 be able to resume 2.5 mile walks per day. Goal Progress: Progressing Goal 3:: Increase R knee strength by 1/2 muscle grade (at time of eval: LE MMT: B hip flex 4-/5, B knee ext 4/5, B knee flex 4/5, B hip abd 4-/5, B hip ext 2-/5). Goal Progress: Goal Met Goal 4:: walk with normal gait pattern with equal stance time on B LE's Goal Progress: Goal Met Plan: DC PT to HEP Discharge Comments: DC PT to HEP If there are questions or concerns regarding this patient's physical therapy, please feel free to call me at [phone]. Thank you for the referral of this patient. Sincerely, GEORGINA Farley <Electronically signed by Shamika Shearer MPT> 09/15/20 1220 CC: Dr. Dallas Tomlin DO; Dr. Raquel Mauro DO Signed Raquel Mauro DO Work Phone: Start: 09-06-2020 End: 09-06-2020 Cardiology Visit Report Comments: See Note; NOTES: [facility] [address] [place] [address] OFFICE VISIT Date of Service: 09/06/20 MR#: [id number] Acct: [id number] Name: OMAIRA OLIVER Rep #: [id number] : 1940 Provider: Dr. Brad preston MD Age/Sex: 80/F Location[place] [facility] Status: Signed HPI HPI History of Present Illness Details: OMAIRA OLIVER, is a 80 white female who presents to the office today for for outpatient cardiovascular follow-up of her history of underlying valvular heart disease, pulmonary hypertension, essential hypertension, and decreased diastolic compliance. Overall since her last visit of 09/08/2019 she states she has been doing well. She is not complaining of any ongoing issues of classic angina pectoris or overt issues of CHF or pulmonary edema. There has been no issues with respect to near syncope or syncope. She continues to have an element of lower extremity peripheral pitting edema. She does continue to wear her support stockings. She has been evaluated by Dr. Perez of peripheral vascular surgery for her lower extremity venous insufficiency in the past. Intake Vital Signs 09/06/20 Height 5 ft 3 in 09/06/20 Weight: 150 lb 5 oz 09/06/20 BMI 26.6 09/06/20 BP 130/80 H 09/06/20 Blood Pressure Location Lt brachial 09/06/20 Position Sitting 09/06/20 Respiration 18 09/06/20 Pulse 68 09/06/20 Pulse Source Auscultation Intake Visit Reasons: 1 y fu Admitting Supervisor Required: No Accompanied by: Self Allergies lidocaine Adverse Reaction (Mild, Verified 09/06/20 09:28) shaking cortisone Adverse Reaction (Verified 09/06/20 09:28) Nausea hydrochlorothiazide Adverse Reaction (Verified 09/06/20 09:28) Other morphine Adverse Reaction (Verified 09/06/20 09:28) Other nitrofurantoin [From Macrobid] Adverse Reaction (Verified 09/06/20 09:28) Other Medications Amlodipine [Norvasc] 5 mg PO DAILY 08/28/17 [History Confirmed 09/06/20] aspirin 81 mg tablet,delayed release 81 mg PO QDAY 07/03/18 [History Confirmed 09/06/20] calcium-vitamin D3-vitamin K 500 mg-500 unit-40 mcg chewable tablet 1 tab PO QDAY tab 07/03/18 [History Confirmed 09/06/20] cholecalciferol (vitamin D3) 125 mcg (5,000 unit) tablet 5,000 unit PO QDAY 07/08/18 [History Confirmed 09/06/20] thwtduv-ogfadqajbhrqm-kttinlf e 250 mg-250 mg-65 mg tablet 1 tab PO Q6H PRN tab 09/06/20 [History Confirmed 09/06/20] clobetasol 0.05 % topical cream 1 applic TOPICAL BID g 09/06/20 [History Confirmed 09/06/20] hydroxychloroquine 200 mg tablet 200 mg PO DAILY 09/06/20 [History Confirmed 09/06/20] ibuprofen 200 mg tablet 200 mg PO Q6H PRN 09/06/20 [History Confirmed 09/06/20] nystatin 100,000 unit/mL oral suspension 1 ml PO DAILY 09/06/20 [History Confirmed 09/06/20] vitamin B complex 1 tab PO DAILY 09/06/20 [History Confirmed 09/06/20] [facility] Medical History Essential hypertension (Chronic) History of aortic valve disorder (Acute) GERRY (obstructive sleep apnea) (Chronic) Nonrheumatic tricuspid (valve) insufficiency (Acute) Nonrheumatic mitral valve regurgitation (Acute) Diastolic dysfunction (Acute) Pulmonary hypertension (Acute) Acute hemorrhoid (Acute) Anemia (Acute) Back pain (Acute) Basal cell carcinoma (Acute) Difficulty balancing (Acute) Hiatal hernia (Acute) Limb weakness (Acute) Neck pain (Acute) Trigger finger of thumb (Acute) GERD (gastroesophageal reflux disease) (Chronic) Knee pain (Resolved) Surgical History History of partial knee replacement (Acute) History of back surgery (Resolved) History of spinal fusion (Resolved) Hx of carpal tunnel repair (Resolved) Hx of cholecystectomy (Resolved) Hx of hysterectomy (Resolved) Hx of tonsillectomy (Resolved) Status post trigger finger release (Resolved) H/O: hysterectomy (Inactive) History of tonsillectomy (Inactive) Hx of cholecystectomy (Inactive) h/o left carpal tunnel release (Inactive) s/p right knee UKA (Inactive) spinal fusion (Inactive) Family History Mother Hypertension Father Hypertension Grandmother CVA (cerebral vascular accident) Grandfather Myocardial infarction Grandfather Myocardial infarction Other Cervical cancer Lung cancer Social History (Updated 09/06/20 @ 10:[address] Brad Holguin MD) Smoking Status: Never smoker alcohol intake: never substance use type: does not use ROS Const Const: Negative for fatigue, weakness, frequent falls, excessive sweating, weight gain or weight loss Eyes Eyes: Negative for transient loss of vision, blurry vision or change in vision ENT ENT: Positive for balance problems; negative for dizziness Cardio Chest Pain: No Palpitations: No Edema: None (wears compression stockings) Muscle aches with walking: None Resp Respiratory: Negative for SOB with activity or SOB at rest GI GI: Negative vomiting or vomiting blood/hematemesis : Negative for hematuria Musc Musc: Positive for joint pain (Rt Knee) and balance problems; negative for muscle aches/ myalgia or muscle weakness Skin Skin: Negative non-healing lesions or rash Neuro Neuro: Positive for vertigo (HX ); negative for dizziness, lightheadedness, orthostatic symptoms, frequent falls, weakness or blurry vision Jonas Hematologic/Lymphatic: Negative for easy bleeding Endo Endo: Negative for fatigue or excessive sweating Psych Psych: Negative for anxiety or depression Allergy Allergy/Immunology: Negative for hives, Negative for rash Cardiology Exam Const Appearance: cooperative, healthy appearing, comfortable, well developed and well groomed Nutritional Appearance: average body habitus Orientation: alert, awake and oriented x3 Head Head: normal to inspection, normocephalic and atraumatic Ears: hearing grossly normal bilaterally Nose: external nose normal Face and Sinus: face symmetric Eyes Eyelids: eyelids normal Conjunctivae: conjunctivae normal Pupils: PERRL EOM: EOM intact bilaterally Neck Neck: normal visual inspection and full ROM Carotids: normal carotid upstroke Chest Chest inspection: normal inspection of the chest, symmetric chest movement and normal respiratory effort Auscultation: Bilateral: Clear to Auscultation Cardio Palpation: normal PMI Rate: regular rate Rhythm: regular rhythm Heart sounds: S1 normal, S2 normal and positive S4 Murmur: Grade 2/6, mid systolic, LLSB and LVOT GI GI: normal to inspection, soft and bowel sounds present Neuro General: alert, awake, oriented x3, gait normal, moves all extremities, no focal sensory deficit and no focal motor deficits Skin Skin: no rashes or lesions noted Extremities Pulses: Normal: Right Radial Pulse, Left Radial Pulse Lower Extremity Edema: +1: Bilateral (Wearing support stock) Musculoskel Musculoskeletal: joint tenderness Psych Psychological: normal affect Assessment Plan 1. Valvular heart disease I38 Plan At the present time she appears to be doing well overall with no significant changes based on history or exam. Thus she will continue her current medical therapy. She will be asked to have outpatient cardiovascular follow-up in approximately 1 year. Prior to that she will be asked to have a transthoracic echocardiogram to monitor her underlying valvular heart related issues. Orders Orders: Echo Complete 11 Months 2. Diastolic dysfunction I51.89 Plan She does have a history of diastolic dysfunction. Again she appears without any acute symptoms at this time. She will continue her current medical management and follow-up. 3. Hyperlipidemia, unspecified hyperlipidemia type E78.5 Plan She has a history of hyperlipidemia. She is following with her PCP for this 4. Essential hypertension I10 Plan Her blood pressure appears to be well controlled today. She will continue her medical management and follow-up. 5. Pulmonary HTN I27.20 Plan She has a history of pulmonary hypertension. Based upon her last echocardiogram her estimated RV systolic pressure was 28 mmHg. At the moment she appears without any acute symptoms. She will continue her current medical therapy and plans for outpatient follow-up as noted. Plan Detail Additional Comments Thank you for allowing me to participate in the care of your patient. Please don't hesitate to call if any issues arise. This note was generated using a voice recognition system and there may be incorrect words, spelling or punctuation that were not noted when reviewing the office note prior to saving. Follow Up 1 Year (with PFM) Coding Level of Care Code Off vis,est,level 3 Diagnoses Valvular heart disease I38 Diastolic dysfunction I51.89 Hyperlipidemia, unspecified hyperlipidemia type E78.5 ?Hyperlipidemia type: unspecified Essential hypertension I10 Pulmonary HTN I27.20 Coding Level of Care Code Off vis,est,level 3 Diagnoses Valvular heart disease I38 Diastolic dysfunction I51.89 Hyperlipidemia, unspecified hyperlipidemia type E78.5 ?Hyperlipidemia type: unspecified Essential hypertension I10 Pulmonary HTN I27.20 Supplemental Info Supplemental Information Transthoracic echocardiogram: 03/27/2019 Interpretation Summary Left ventricular systolic function is normal. The estimated ejection fraction is 65 %. The left atrium is moderately enlarged. The right atrium is mildly enlarged. There is moderate mitral annular calcification. Extension of the mitral annular calcification onto the posterior mitral valve leaflet. Mild (1+) mitral valve insufficiency. Trivial tricuspid valve insufficiency. Mild focal aortic valve calcification. Trivial pulmonic valve insufficiency. Right ventricular systolic pressure estimated to be 28 mmHg. Diastolic function is indeterminate. DATE OF SERVICE: 01/23/2017 EXERCISE TOLERANCE TEST: The patient underwent pharmacologic (regadenoson) evaluation with a peak heart rate of 93 beats per minute (63% predicted maximum heart rate) and a peak blood pressure of 156/90 mmHg. The baseline ECG demonstrated normal sinus rhythm. The peak pharmacologic ECG demonstrated no obvious ECG changes. There were no obvious cardiac dysrhythmias pretest or during pharmacologic infusion with a rare PAC during recovery. There was no report of chest discomfort during pharmacologic infusion or recovery. The examination was discontinued secondary to completion of protocol. IMPRESSION: 1. Pharmacologic (regadenoson) evaluation. 2. Peak pharmacologic ECG with no obvious ECG changes. 3. Rare premature atrial contraction during recovery. 4. Nuclear images pending. MYOCARDIAL PERFUSION IMAGING STUDY: TECHNIQUE: The patient was injected with 11.0 mCi of Tc99m Cardiolite and subsequently rest SPECT Cardiolite nuclear imaging was obtained in the horizontal long, vertical long and short axes views. The patient underwent pharmacologic (regadenoson) evaluation with a peak heart rate of 93 beats per minute (63% predicted maximum heart rate) and a peak blood pressure of 156/90 mmHg. The patient was injected with 33.7 mCi of Tc99m Cardiolite and subsequently stress SPECT Cardiolite nuclear imaging was obtained in the horizontal long, vertical long and short axes views. A gated Cardiolite study at peak stress was obtained. INTERPRETATION: Rest and stress SPECT Cardiolite nuclear imaging status post realignment, normalization and attenuation correction demonstrates the appearance of relative uniform tracer uptake and myocardial perfusion appearing within normal limits. There is notation of end systolic thickening and brightening. The gated Cardiolite study demonstrates myocardial thickening and inward wall motion. The reported LVEF is 81%. There are no myocardial perfusion deficits noted on the rest or stress polar map images. IMPRESSION: 1. Rest and stress SPECT Cardiolite nuclear imaging demonstrate relative uniform tracer uptake and myocardial perfusion appearing within normal limits. 2. The gated Cardiolite study reports an LVEF of 81%. Diagnostics Electrocardiogram 03/05/18 Echocardiogram 03/27/19 Stress Test Nuclear Medicine 01/23/17 Chest X-Ray 01/15/17 Venous Doppler Study 05/08/18 09/06/20 1000 <Electronically signed by Brad Holguin MD> Date Brad Holguin MD Cosigner Signature: Date (if applicable) CC: DO Raquel Sylvester DO Work Phone: Start: 08-18-2020 End: 08-18-2020 Re-Evaluation - PT (1) Comments: See Note; NOTES: [facility] [address] [place] [address]. [address] [place] [address] / REEVALUATION / MEDICARE RECERTIFICATION PHYSICAL THERAPY MR#: [id number] Acct: [id number] Name: OMAIRA OLIVER Rep #: [id number] : 1940 80 From: Shamika Shearer [facility] Referring Dr.: Dr. Dallas Tomlin DO Status:REG R Insurance: [facility] SELF PAY INSURANCE Dr. Dallas Tomlin, DO, It has been my pleasure to treat OMAIRA OLIVER over the last 10 visits for R IT Band Syndrome, HS tendonitis. Please see the progress note below for an update on the physical therapy plan of care! Subjective: Pt feels that the stretching helps the most. Infrapatella on the R is still painful. The IT band is better and she does a rolling pin at home also. She does the IT band stretch at home laying down. The knee pain has been there for 2 months. Pt feels that the post op compression socks increase her tenderness. She is able to walk 1 mile and then she starts to have pain. She still has to pull somewhat to go up the stairs. Objective/Function: Very tender R quad tendon. Pt has increased quad weakness when ascending the stairs. Plan Plan: ++Pt had a R Partial TKR 2 years ago++++. 2-3X/ week for R IT band stretching, gastroc stretching, and Hip flexor strentching, MT if needed to the above, R hip and knee strengthening with some core stability, gait training, functional activities, with HEP. Goals Goal 1:: I HEP Goal Time Frame: 4-6 Weeks Goal Progress: Goal Met Goal 2:: Decrease R knee pain to 1/10 be able to resume 2.5 mile walks per day. Goal Time Frame: 4-6 Weeks Goal Progress: Progressing Goal 3:: Increase R knee strength by 1/2 muscle grade (at time of eval: LE MMT: B hip flex 4-/5, B knee ext 4/5, B knee flex 4/5, B hip abd 4-/5, B hip ext 2-/5). Goal Time Frame: 4-6 Weeks Goal 4:: walk with normal gait pattern with equal stance time on B LE's Goal Time Frame: 4-6 Weeks Anticipated Interventions Patient/Client Instruction: Educate patient on: Condition, Plan of Care For the Purpose of:: To decrease pain, To increase ROM, To improve nutrient delivery to tissue, To increase oxygenation perfusion, To improve muscle performance and motor function, To improve ability to perform ADL's, To increase tolerance to activity/condition/position, To improve performance and independence with ADL's, To decrease level of supervision to perform tasks, To improve ability of physical actions for home/community/work/leisure, To improve gait and locomotor functions, To improve health of tissue, To decrease soft tissue restriction, To increase flexibility/ROM, To improve balance Therapeutic Exercise to Include: Strength training, Postural training, Flexibilty training, Gait and locomotor training, Passive ROM, Active ROM For the Purpose of:: To decrease pain, To increase ROM, To improve nutrient delivery to tissue, To improve muscle performance and motor function, To improve ability to perform ADL's, To increase tolerance to activity/condition/position, To improve performance and independence with ADL's, To decrease level of supervision to perform tasks, To improve ability of physical actions for home/community/work/leisure, To improve gait and locomotor functions, To improve health of tissue, To decrease soft tissue restriction, To increase flexibility/ROM Functional Training to Include: Gait training For the Purpose of:: To improve gait and locomotor functions, To improve safety with gait Please do not hesitate to contact me at [phone] by phone or if you have questions or concerns regarding this new plan of care! Sincerely, GEORGINA Farley <Electronically signed by Shamika Shearer MPT> 08/18/20 1746 CC: Dr. Dallas Tomlin DO; Dr. Raquel Mauro DO Signed For Medicare only, by signing this I certify the plan of care. Physicians Signature Date Raquel Mauro DO Work Phone: Start: 07-27-2020 End: 07-27-2020 Inital Evaluation (1) - PT Comments: See Note; NOTES: [facility] [address] [place] [address] [address] [place] [address] / REHABILITATION SERVICES INITIAL EVALUATION MR#: [id number] Acct: [id number] Name: OMAIRA OLIVER Rep #: [id number] : 1940 80 From: Shamika ERICKSON Referring Dr.: Dr. Dallas Tomlin DO Status: R EG RCR Insurance: [facility] SELF PAY INSURANCE Patient's Visit Information OMAIRA OLIVER is a 80 year old F referred to Physical Therapy by Dr. Dallas Tomlin DO with a diagnosis of R IT Band Syndrome, HS tendonitis. Date of Evaluation: 07/27/20 Physical Therapist: GEORGINA Farley - Visit Plan Frequency: 2-3x /Week Duration: 4 Weeks Plan: ++Pt had a R Partial TKR 2 years ago++++. 2-3X/ week for R IT band stretching, gastroc stretching, and Hip flexor strentching, MT if needed to the above, R hip and knee strengthening with some core stability, gait training, functional activities, with HEP. - Subjective Pt reports that she went to see Dr Gonzalez for tender under knee cap and IT band. She had a partial TKR on the R 2 years ago and x-rays were normal as of her last appointment with Dr Tomlin. She also has some back pain also. She could hardly walk this morning because of her back. Her current knee pain started the first week of April. She was walking 2 miles per day. It hurts medially with walking. She wears compression socks cause she gets blood pulling. Stairs: she does best of she goes recip and pulls up on the railing. Sit to stand: No pain with stanind. She can hardly move in the morning. She got a [employer] creams and it has been doing much better since Sunday. She always has tighness in her calf. Pt refused cortizone shot because she gets an adverse reaction. - Pain R medial knee pain Pain Intensity (Out of 10): 6 R iT band pain Pain Intensity (Out of 10): 3 Hamstring pain Pain Intensity (Out of 10): 0 - Objective Gait: walks with a normal gait pattern with decrease stance time on the R LE. Palpation: tender R medial knee joint line, tender R patellar tendon, tender R lateral HS tendon. knee AROM: R knee: 0-124 degrees knee flexion and L knee 0-128 degrees. LE MMT: B hip flex 4-/5, B knee ext 4/5, B knee flex 4/5, B hip abd 4-/5, B hip ext 2-/5. Trunk extension to neutral and can not lay on stomach due to increase back pain. Able to Heel and toe walk with increase pain in R knee and tightness in R calf. Tight hip flexors B, tight gastroc B, Tight R IT band, Good HS length - Goals Goal 1:: I HEP Goal Time Frame: 4-6 Weeks Goal 2:: Decrease R knee pain to 1/10 be able to resume 2.5 mile walks per day. Goal Time Frame: 4-6 Weeks Goal 3:: Increase R knee strength by 1/2 muscle grade (at time of eval: LE MMT: B hip flex 4-/5, B knee ext 4/5, B knee flex 4/5, B hip abd 4-/5, B hip ext 2-/5). Goal Time Frame: 4-6 Weeks Goal 4:: walk with normal gait pattern with equal stance time on B LE's Goal Time Frame: 4-6 Weeks - Rehabilitation Potential Rehabilitation Potential: Good - Anticipated Interventions Patient/Client Instruction: Educate patient on: Condition, Plan of Care For the Purpose of:: To decrease pain, To increase ROM, To improve nutrient delivery to tissue, To increase oxygenation perfusion, To improve muscle performance and motor function, To improve ability to perform ADL's, To increase tolerance to activity/condition/position, To improve performance and independence with ADL's, To decrease level of supervision to perform tasks, To improve ability of physical actions for home/community/work/leisure, To improve gait and locomotor functions, To improve health of tissue, To decrease soft tissue restriction, To increase flexibility/ROM, To improve balance Therapeutic Exercise to Include: Strength training, Postural training, Flexibilty training, Gait and locomotor training, Passive ROM, Active ROM For the Purpose of:: To decrease pain, To increase ROM, To improve nutrient delivery to tissue, To improve muscle performance and motor function, To improve ability to perform ADL's, To increase tolerance to activity/condition/position, To improve performance and independence with ADL's, To decrease level of supervision to perform tasks, To improve ability of physical actions for home/community/work/leisure, To improve gait and locomotor functions, To improve health of tissue, To decrease soft tissue restriction, To increase flexibility/ROM Functional Training to Include: Gait training For the Purpose of:: To improve gait and locomotor functions, To improve safety with gait Thank you for the opportunity to evaluate your patient. For Medicare and Medicare HMO plans, please review the plan of care and approve it. It will need to be FAXED BACK to us at [phone] for Medicare purposes. For Medicare only, by signing this I certify the plan of care. Please let me know if there are questions or concerns regarding this plan of care. Physician Signature: _Date: <Electronically signed by Shamika Shearer MPT> 07/27/20 1403 CC: Dr. Dallas Tomlin DO; Dr. Raquel Mauro DO Signed Raquel Mauro DO Work Phone: Start: 07-21-2020 End: 07-21-2020 Knee 4 or More Views Comments: See Note; NOTES: [facility] [address] [place] [address] Knee 4 or More Views MR#: [id number] Acct: [id number] Name: OMAIRA OLIVER Rep #: [id number] : 1940 F 80 From: Stefanie Sow MD PCP: Dr. Raquel Mauro DO Status: REG CLI Study: Knee 4 or More Views Date of Exam: 07/21/20 Exam# [id number] Ordering Dr: Dallas Tomlin DO STUDY: X-RAY - RIGHT KNEE REASON FOR EXAM: Female, 80 years old. INCREASED RT KNEE PAIN TECHNIQUE: 4 view(s) of the knee. COMPARISON: Prior exam of the right knee from 09/03/2019 FINDINGS: She is status post replacement of the medial compartment of the knee. The tibial and femoral components remain normally aligned with no evidence of hardware failure or migration. Normal visualized proximal tibia and fibula. Normal proximal tibiofibular articulation. Normal medial femorotibial compartment. Normal lateral femorotibial compartment. Normal patellofemoral articulation. The soft tissue structures are unremarkable. RAD/Knee 4 or More Views IMPRESSION: Status post medial compartment repair with no change in bone, joint or hardware finding since 09/03/2019. Electronically Signed: Stefanie Sow MD at 20:57 EDT , Service support , CC: Dr. Dallas Tomlin DO; Dr. Raquel Mauro DO Dimmer Board Operator: Signed Raquel Mauro DO Work Phone: Start: 07-21-2020 End: 07-21-2020 Orthopedic Visit Report Comments: See Note; NOTES: [facility] [address] [place] [address] OFFICE VISIT Date of Service: 07/21/20 MR#: [id number] Acct: [id number] Name: OMAIRA OLIVER Rep #: [id number] : 1940 Provider: Dr. Dallas roldan DO Age/Sex: 80/F Location: [facility] Status: Signed Intake Vital Signs 07/21/20 BMI 27.6 Intake Visit Reasons: RIGHT KNEE Is patient in pain?: Yes Allergies lidocaine Adverse Reaction (Mild, Verified 07/21/20 10:44) shaking cortisone Adverse Reaction (Verified 07/21/20 10:44) Nausea hydrochlorothiazide Adverse Reaction (Verified 07/21/20 10:44) Other morphine Adverse Reaction (Verified 07/21/20 10:44) Other nitrofurantoin [From Macrobid] Adverse Reaction (Verified 07/21/20 10:44) Other [facility] Social History (Updated 07/21/20 @ 12:[address] Dallas Tomlin DO) Smoking Status: Never smoker alcohol intake: never substance use type: does not use HPI RIGHT KNEE: Details: Parts of this documentation were recorded by a scribe, this documentation accurately reflects the service provided and the decisions made by me, Dr. Dallas Tomlin DO 07/21/20 0801. OMAIRA OLIVER is a 80 year old F here today for right knee. Patient states that she had a unicompartmental replacement by Dr Alanis on 03/05/2018. Patient notes that she was doing well until April. She denies any known injury. She states that she had increased her walking during the pandemic. Her pain has progressively worsening. Patient states that she has swelling over her knee and into her leg. Patient has been wearing compression stocking. She complains of pain over her anterior knee and over her entire lateral thigh. Patient states that she had a barbosa colored patch of swelling over her anterior knee, but it is gone today. She had a massage yesterday and is unsure if that helped with the swelling. Patient complains of clicking which is not painful. Patient denies any knee instability. She denies any formal physical therapy or bracing or injections. Patient states that she is unable to have a cortisone injection due to an adverse reaction. She denies any xrays or MRI. She takes Excedrin for pain if needed. Denies numbness, tingling or other associated symptoms. She denies any fevers or chills or infection. Pain is mostly over the IT band distally as well as the Pez medially ROS Musc Reports joint pain, Reports joint swelling Skin/Breast Reports system reviewed and no additional complaints, except as docu Neuro Yes system reviewed and no additional complaints, except as docu Ortho Exam Right Knee Skin/Wound: Yes CDI, No erythema, No ecchymosis, No swelling Homans Sign: No Knee ROM: Yes ROM-Extension -20 to 0, Yes ROM-Flexion 0-140 Examination: Yes Med jt line tenderness, Yes Crepitus (mild with ROM), Yes TTP Pes Anserine (significant), Yes ITB tenderness Stability: NML: Anterior Drawer, NML: Posterior Drawer, NML: Valgus 30, NML: Dial 90 Patella Grind: No KNEE: Exquisitely tender to palpation over iliotibial band and medial Pez there is no cruciate or collateral instability there is no joint effusion erythema or sign of infection or blood clot Supplemental Info 09/03/2019 x-ray lumbar spine: Degenerative scoliosis, multilevel degenerative disc disease interbody spacers L4-L5 that appear slightly posterior to the posterior border of the vertebrae however there is no x-rays to compare this to previous study 09/03/2019 x-ray right knee: Assessment Plan Problems 1. Iliotibial band syndrome of right side M76.31 2. Hamstring tendinitis M76.899 3. 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 Spoke with her about ITB syndrome and hamstring tendinitis. Spoke with her about her options- topical ointment Biomed 8 E and a physical therapy, for which she agrees. She is unable to have an injection due to her adverse reaction. Follow up in 6 weeks or sooner if pain, swelling, numbness or associated symptoms, or concerns develop. All questions answered. Patient in agreement of plan. Orders Orders: Knee 4 or More Views Today M25.561 Coding Level of Care Code Off vis,est,level 3 Diagnoses Iliotibial band syndrome of right side M76.31 ?Laterality: right Hamstring tendinitis M76.899 History of prosthetic unicompartmental arthroplasty of right knee Z96.651 07/21/20 1220 <Electronically signed by Dallas Tomlin DO> Date Dallas Tomlin DO Cosigner Signature: Date (if applicable) CC: Raquel Mauro Start: 05-25-2020 End: 05-27-2020 Dexa Bone Density Study Comments: See Note; NOTES: [facility] Services [address] [place] [address] Dexa Bone Density Study MR#: [id number] Acct: [id number] Name: OMAIRA OLIVER Rep #: [id number] : 1940 F 80 From: Ian gomes MD PCP: Dr. Raquel Mauro, Status: [facility] Study: Dexa Bone Density Study Date of Exam: 05/25/20 Exam# [id number] Ordering Dr: Raquel Mauro DO STUDY: DUAL ENERGY X-RAY ABSORPTIOMETRY / DXA REASON FOR EXAM: Female, 80 years old. 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 COMPARISON: Comparison is made with prior study dated April 10, 2017. FINDINGS: Lumbar Spine (L1-L4): g/cm2 (1.440) / T-score (2.3) / Z-score (4.1) Findings are suggestive of normal bone density with a low fracture risk. Left Femur Total: g/cm2 (0.932) / T-score (-0.6) / Z-score (1.3) Left Femoral Neck: g/cm2 (0.768) / T-score (-1.9) / Z-score (0.1) Right Femur Total: g/cm2 (0.937) / T-score (-0.6) / Z-score (1.3) Right Femoral Neck: g/cm2 (0.796) / T-score (-1.7) / Z-score (0.3) The T-Scores on the most recent prior examination were: Lumbar Spine (L1-L4): There has been improvement of bone density since the previous examination. Left Femur Total: which represents a worsening of 1.3%. Right Femur Total: which represents a worsening of 0.4%. BD/Dexa Bone Density Study IMPRESSION: The patient is considered osteopenic as outlined below according to World Zac Organization (WHO) criteria with a moderate fracture risk. There has been worsening of bone density since the previous examination. Reference Information: The T-score is the number of standard deviations above or below the standard which is normal for young adults at their peak bone mineral density. The World Health Organization (WHO) interprets the T-scores as follows: Above -1 Normal bone density Between -1 and -2.5 Osteopenia Equal to / or below -2.5 Osteoporosis As a practical clinical guideline, osteopenia may be graded as follows: Mild -1 through -1.5 Moderate -1.6 through -2.0 Severe -2.1 through -2.4 The Z-score is the number of standard deviations above or below age-matched controls. A Z-score of less than -1.5 would be considered abnormal. References: 1. NIH Osteoporosis and Related Bone Diseases http://www.osteo.org 2. International Society for Clinical Densitometry http://www.iscd.org 3. National Osteoporosis Foundation http://www.nof.org Electronically Signed: Ian Bhatia, at 7:36 EDT , Service support , CC: Dr. Raquel Mauro DO Dimmer Board Operator: Signed Raquel Mauro Work Phone: Start: 05-25-2020 End: 05-25-2020 SCREEN MAMM (CAD) W/YEISON BILAT Comments: See Note; NOTES: [facility] [address] [place] [address] SCREEN MAMM (CAD) W/YEISON BILAT MR#: [id number] Acct: [id number] Name: OMAIRA OLIVER Rep #: [id number] : 1940 F 80 From: Ian gomes MD PCP: Dr. Raquel Mauro DO Status: REG CLI Study: SCREEN MAMM (CAD) W/YEISON BILAT Date of Exam: 0 05/25/20 Exam# [id number] Ordering Dr: Raquel Mauro DO MAMMOGRAPHY - BILATERAL SCREENING REASON FOR EXAM: Female, 80 years old. Routine annual screening examination. PERTINENT HISTORY: Non-contributory. TECHNIQUE: Digital bilateral breast yeison (3D mammographic acquisition) in the CC and MLO projections. 2-D mediolateral oblique (MLO) and craniocaudad (CC) views of both breasts were obtained. CAD: Full Field Digital Mammography with Computer Added Detection was performed. COMPARISON: Comparison is made with prior examination dated May 22, 2019 and May 10, 2018. FINDINGS: Breast Composition: The breasts are heterogeneously dense, which may obscure small masses. There are no dominant masses or suspicious calcifications. Stable small benign appearing bilateral axillary lymph nodes. No other significant abnormalities are identified. There has been no significant change since the prior study. BI/SCREEN MAMM (CAD) W/YEISON BILAT IMPRESSION: Stable bilateral screening mammogram. Yearly follow-up mammogram recommended. (A) ASSESSMENT CATEGORY: BIRADS Category 2: Benign. A letter regarding these results will be sent to the patient by the facility within 30 days. Approximately 10% of breast cancers are not detected by mammography. A normal mammogram should not delay biopsy of a clinically suspicious abnormality. [id number] Electronically Signed: Ian Bhatia, at 14:55 EDT , Service support , CC: Dr. Raquel Mauro, Dimmer Board Operator: Signed Raquel Mauro Work Phone: Start: 09-08-2019 End: 09-08-2019 Cardiology Visit Report Comments: See Note; NOTES: [facility] [address] [place] [address]. [address] [place] [address] OFFICE VISIT Date of Service: 09/08/19 MR#: [id number] Acct: [id number] Name: OMAIRA OLIVER Rep #: [id number] : 1940 Provider: Brad Holguin MD Age/Sex: 79/F Location: [facility] [place] Status: Signed [facility] History of Present Illness Details: OMAIRA OLIVER, is a 78 white female who presents to the office today for for outpatient cardiovascular follow-up of her history of underlying valvular heart disease, pulmonary hypertension, essential hypertension, and decreased diastolic compliance. Overall since her last visit of 07-08-18 she states she has been doing well. She is not complaining of any ongoing issues of classic angina pectoris or overt issues of CHF or pulmonary edema. There has been no issues with respect to near syncope or syncope. She continues to have an element of lower extremity peripheral pitting edema. She does continue to wear her support stockings. Earlier this year, in March, she underwent follow-up evaluation with a transthoracic echocardiogram. The results are as noted below. Intake Vital Signs09/08/19 Height 5 ft 3 in 09/08/19 Weight: 156 lb 09/08/19 Body Mass Index (BMI) 27.6 09/08/19 Blood Pressure 144/82 H Intake Visit Reasons: 1 Y FU Admitting Supervisor Required: No Accompanied by: Self Allergies lidocaine Adverse Reaction (Mild, Verified 09/08/19 09:03) shaking cortisone Adverse Reaction (Verified 09/08/19 09:03) Nausea hydrochlorothiazide Adverse Reaction (Verified 09/08/19 09:03) Other morphine Adverse Reaction (Verified 09/08/19 09:03) Other nitrofurantoin [From Macrobid] Adverse Reaction (Verified 09/08/19 09:03) Other Medications Amlodipine [Norvasc] 5 mg PO DAILY 08/28/17 [History Confirmed 09/08/19] aspirin 81 mg tablet,delayed release 81 mg PO QDAY 07/03/18 [History Confirmed 09/08/19] calcium-vitamin D3-vitamin K 500 mg-500 unit-40 mcg chewable tablet 1 tab PO QDAY tab 07/03/18 [History Confirmed 09/08/19] cholecalciferol (vitamin D3) 5,000 unit tablet 5,000 unit PO QDAY 07/08/18 [History Confirmed 09/08/19] methylprednisolone 4 mg tablets in a dose pack See Rx Instructions PO PER PKG DIR #21 tab 09/03/19 [Rx Confirmed 09/08/19] atorvastatin 10 mg tablet PO .QOD #90 tab 09/08/19 [History Confirmed 09/08/19] betamethasone dipropionate 0.05 % topical ointment 1 applic TOPICAL BID 09/08/19 [History Confirmed 09/08/19] fluconazole 150 mg tablet 150 mg PO QWEEK tab 09/08/19 [History Confirmed 09/08/19] [facility] Medical History Essential hypertension (Chronic) History of aortic valve disorder (Acute) GERRY (obstructive sleep apnea) (Chronic) Nonrheumatic tricuspid (valve) insufficiency (Acute) Nonrheumatic mitral valve regurgitation (Acute) Diastolic dysfunction (Acute) Pulmonary hypertension (Acute) Acute hemorrhoid (Acute) Anemia (Acute) Back pain (Acute) Basal cell carcinoma (Acute) Difficulty balancing (Acute) Hiatal hernia (Acute) Limb weakness (Acute) Neck pain (Acute) Trigger finger of thumb (Acute) GERD (gastroesophageal reflux disease) (Chronic) Hx of hysterectomy (Resolved) Knee pain (Resolved) H/O: hysterectomy (Inactive) Surgical History History of partial knee replacement (Acute) History of back surgery (Resolved) History of spinal fusion (Resolved) Hx of carpal tunnel repair (Resolved) Hx of cholecystectomy (Resolved) Hx of tonsillectomy (Resolved) Status post trigger finger release (Resolved) History of tonsillectomy (Inactive) Hx of cholecystectomy (Inactive) h/o left carpal tunnel release (Inactive) s/p right knee UKA (Inactive) spinal fusion (Inactive) Family History Mother Hypertension Father Hypertension Grandmother CVA (cerebral vascular accident) Grandfather Myocardial infarction Grandfather Myocardial infarction Other Cervical cancer Lung cancer Social History (Updated 09/08/19 @ 09:31 by Brad Holguin MD) Smoking Status: Never smoker alcohol intake: never substance use type: does not use ROS Const Const: Negative for fatigue, weakness, frequent falls, excessive sweating, weight gain or weight loss Eyes Eyes: Negative for transient loss of vision, blurry vision or change in vision ENT ENT: Positive for balance problems (occasional off balance); negative for dizziness Cardio Chest Pain: No Palpitations: Yes (Rare) feels like its: fast Edema: None (wears compression stockings) Muscle aches with walking: None Resp Respiratory: Positive for SOB with activity (going up stairs); negative for SOB at rest GI GI: Negative vomiting or vomiting blood/hematemesis : Negative for hematuria Musc Musc: Positive for balance problems (occasional off balance); negative for muscle aches/ myalgia, muscle weakness or joint pain Skin Skin: Negative non-healing lesions or rash Neuro Neuro: Negative for dizziness, lightheadedness, orthostatic symptoms, frequent falls, weakness or blurry vision Jonas Hematologic/Lymphatic: Negative for easy bleeding Endo Endo: Negative for fatigue or excessive sweating Psych Psych: Negative for anxiety or depression Allergy Allergy/Immunology: Negative for hives, Negative for rash Cardiology Exam Const Appearance: cooperative, healthy appearing, comfortable, well developed and well groomed Nutritional Appearance: average body habitus Orientation: alert, awake and oriented x3 Head Head: normal to inspection, normocephalic and atraumatic Ears: hearing grossly normal bilaterally Nose: external nose normal Face and Sinus: face symmetric Mouth: oral mucosae normal Teeth and gingiva: fair dentition Eyes Eyelids: eyelids normal Conjunctivae: conjunctivae normal Pupils: PERRL EOM: EOM intact bilaterally Neck Neck: normal visual inspection and full ROM Carotids: normal carotid upstroke Chest Chest inspection: normal inspection of the chest, symmetric chest movement and normal respiratory effort Auscultation: Bilateral: Clear to Auscultation Cardio Palpation: normal PMI Rate: regular rate Rhythm: regular rhythm Heart sounds: S1 normal, S2 normal and positive S4 Murmur: Grade 2/6, mid systolic, LLSB and LVOT GI GI: normal to inspection, soft and bowel sounds present Neuro General: alert, awake, oriented x3, gait normal, moves all extremities, no focal sensory deficit and no focal motor deficits Skin Skin: no rashes or lesions noted Extremities Pulses: Normal: Right Radial Pulse, Left Radial Pulse Lower Extremity Edema: +1: Bilateral (Wearing support stock) Musculoskel Musculoskeletal: joint tenderness Psych Psychological: normal affect Assessment AND Plan 1. Valvular heart disease I38 Plan At the moment she appears to be stable. She will continue her current medical management and follow-up. 2. Diastolic dysfunction I51.89 Plan Her most recent noninvasive studies are as noted above. Again she appears to be symptomatically stable. She will continue her medical management and follow-up. 3. Pulmonary HTN I27.20 Plan Her most recent noninvasive assessment of her estimated RV systolic pressure is as noted above. Based upon her most recent transthoracic echocardiogram her estimated RV systolic pressure appeared to be within normal range/upper limit of normal range. Overall she will continue her current medical management and follow-up. 4. Essential hypertension I10 Plan She will continue to monitor her blood pressure. If her trends elevate then she may need further adjustment of her medications. 5. Hyperlipidemia, unspecified hyperlipidemia type E78.5 Plan A copy of her most recent lipid labs would be appreciated for continuity of care. Plan Detail Additional Comments Otherwise she will be scheduled for an outpatient visit approximately 1 year unless needed sooner. Thank you for allowing me to participate in the care of your patient. Please don't hesitate to call if any issues arise. This note was generated using a voice recognition system and there may be incorrect words, spelling or punctuation that were not noted when reviewing the office note prior to saving. Follow Up 1 Year (PFM) Coding Level of Care Code Off vis,est,level 3 Diagnoses Valvular heart disease I38 Diastolic dysfunction I51.89 Pulmonary HTN I27.20 Essential hypertension I10 Hyperlipidemia, unspecified hyperlipidemia type E78.5 Hyperlipidemia type: unspecified Coding Level of Care Code Off vis,est,level 3 Diagnoses Valvular heart disease I38 Diastolic dysfunction I51.89 Pulmonary HTN I27.20 Essential hypertension I10 Hyperlipidemia, unspecified hyperlipidemia type E78.5 Hyperlipidemia type: unspecified Supplemental Info Supplemental Information Transthoracic echocardiogram: 03/27/2019 Interpretation Summary Left ventricular systolic function is normal. The estimated ejection fraction is 65 %. The left atrium is moderately enlarged. The right atrium is mildly enlarged. There is moderate mitral annular calcification. Extension of the mitral annular calcification onto the posterior mitral valve leaflet. Mild (1+) mitral valve insufficiency. Trivial tricuspid valve insufficiency. Mild focal aortic valve calcification. Trivial pulmonic valve insufficiency. Right ventricular systolic pressure estimated to be 28 mmHg. Diastolic function is indeterminate. DATE OF SERVICE: 01/23/2017 EXERCISE TOLERANCE TEST: The patient underwent pharmacologic (regadenoson) evaluation with a peak heart rate of 93 beats per minute (63% predicted maximum heart rate) and a peak blood pressure of 156/90 mmHg. The baseline ECG demonstrated normal sinus rhythm. The peak pharmacologic ECG demonstrated no obvious ECG changes. There were no obvious cardiac dysrhythmias pretest or during pharmacologic infusion with a rare PAC during recovery. There was no report of chest discomfort during pharmacologic infusion or recovery. The examination was discontinued secondary to completion of protocol. IMPRESSION: 1. Pharmacologic (regadenoson) evaluation. 2. Peak pharmacologic ECG with no obvious ECG changes. 3. Rare premature atrial contraction during recovery. 4. Nuclear images pending. MYOCARDIAL PERFUSION IMAGING STUDY: TECHNIQUE: The patient was injected with 11.0 mCi of Tc99m Cardiolite and subsequently rest SPECT Cardiolite nuclear imaging was obtained in the horizontal long, vertical long and short axes views. The patient underwent pharmacologic (regadenoson) evaluation with a peak heart rate of 93 beats per minute (63% predicted maximum heart rate) and a peak blood pressure of 156/90 mmHg. The patient was injected with 33.7 mCi of Tc99m Cardiolite and subsequently stress SPECT Cardiolite nuclear imaging was obtained in the horizontal long, vertical long and short axes views. A gated Cardiolite study at peak stress was obtained. INTERPRETATION: Rest and stress SPECT Cardiolite nuclear imaging status post realignment, normalization and attenuation correction demonstrates the appearance of relative uniform tracer uptake and myocardial perfusion appearing within normal limits. There is notation of end systolic thickening and brightening. The gated Cardiolite study demonstrates myocardial thickening and inward wall motion. The reported LVEF is 81%. There are no myocardial perfusion deficits noted on the rest or stress polar map images. IMPRESSION: 1. Rest and stress SPECT Cardiolite nuclear imaging demonstrate relative uniform tracer uptake and myocardial perfusion appearing within normal limits. 2. The gated Cardiolite study reports an LVEF of 81%. Diagnostics Electrocardiogram 03/05/18 Echocardiogram 03/27/19 Stress Test Nuclear Medicine 01/23/17 Chest X-Ray 01/15/17 Venous Doppler Study 05/08/18 09/08/19 0931 <Electronically signed by Brad Holguin MD> Date Brad Holguin MD Cosigner Signature: Date (if applicable) CC: Raquel Roy Start: 09-03-2019 End: 09-03-2019 Knee 4 or More Views Comments: See Note; NOTES: [facility] Imaging Services [address] [place] [address] Knee 4 or More Views MR#: [id number] Acct: [id number] Name: OMAIRA OLIVER Rep #: [id number] : 1940 F 79 From: Kyle Mae DO PCP: Raquel Mauro DO Status: REG CLI Study: Knee 4 or More Views Date of Exam: 09/03/19 Exam# [id number] Ordering Dr: Dallas Tomlin DO STUDY: X-RAY - RIGHT KNEE REASON FOR EXAM: Female, 79 years old. Postop TECHNIQUE: 4 view(s) of the knee. COMPARISON: April 15, 2018 FINDINGS: Stable prosthesis of the medial femorotibial compartment. Normal lateral femorotibial compartment. Normal patellofemoral articulation. The soft tissue structures are unremarkable. RAD/Knee 4 or More Views IMPRESSION: Stable prosthesis of the knee. Electronically Signed: Kyle Mae DO at 22:33 EDT Tel [phone], Service support , CC: Dallas Tomlin DO; Raquel Mauro DO Dimmer Board Operator: Signed Raquel Mauro Start: 09-03-2019 End: 09-04-2019 L/S Spine w Bend Min 6 Vw Comments: See Note; NOTES: [facility] Imaging Services [address] [place] [id number] L/S Spine w Bend Min 6 Vw MR#: [id number] Acct: [id number] Name: OMAIRA OLIVER Rep #: [id number] : 1940 F 79 From: Salvador Hodge DO PCP: Raquel Mauro DO Status: REG CLI Study: L/S Spine w Bend Min 6 Vw Date of Exam: 09/03/19 Exam# [id number] Ordering Dr: Dallas Tomlin DO STUDY: X-RAY - LUMBOSACRAL SPINE REASON FOR EXAM: Female, 79 years old. Low back pain TECHNIQUE: 6 view(s) of the lumbosacral spine were obtained. With flexion and extension COMPARISON: None FINDINGS: Normal lumbar lordosis. There is a dextroscoliosis of the lumbar spine. There is normal alignment of the vertebrae. There is multilevel endplate spondylosis of the lumbar vertebrae. There is multi-level degenerative disc disease with multi-level disc space narrowing. Postsurgical change noted at L4-5. No abnormal translation with flexion or extension Normal bilateral sacral ala, sacroiliac joints, and visualized sacrum. Normal visualized soft tissue structures. RAD/L/S Spine w Bend Min 6 Vw IMPRESSION: Degenerative changes of the spine, as detailed above. Electronically Signed: Salvador Hodge DO at 13:00 EDT Tel , Service support , CC: Dallas Tomlin DO; Raquel Mauro DO Dimmer Board Operator: Signed Raquel Mauro Start: 06-09-2019 End: 06-09-2019 Emergency Department Summary Comments: See Note; NOTES: [facility] Medical Records Department [address] [place] [address] Emergency Department Summary 06/07/19 1226 MR#: [id number] Acct: [id number] Name: OMAIRA OLIVER Rep #: [id number] : 1940 79 From: Marc Ray DO PCP: Raquel Mauro DO Status: DEP ER - ER Visit Summary Date of Service: 06/07/19 Chief Complaint: Left knee pain History of Present Illness: The patient is a 79 F who states that she has developed left posterior knee pain. She denies any swelling of the leg. No calf pain. No history of DVT. She recently drove to Dr[place] Yo and back returning home a couple days ago. She notes the pain is on the lateral posterior aspect of the left knee and radiates laterally into the lateral hamstring. Physical Examination: Afebrile vital signs stable The left calf is nontender. There is no unilateral leg swelling. 2 fingerbreadths above the lateral malleolus and 2 fingerbreadths below the tibial plateau the calves are symmetric. No palpable cords. There is point tenderness well near the posterior lateral aspect of the knee. I do not appreciate a Foley's cyst. There is mild tenderness to the lateral tendons. Emergency Department Course and Treatment: Patient does not have evidence of DVT. I do not believe we need to send her d-dimer. Patient will be discharged home instructions for rest gentle stretching anti-inflammatories as needed. Impression: Left posterior knee pain This note was generated with [employer] dictation software. It may contain incorrect words, spelling, and punctuation that were not noted in review of the chart prior to signing ED Disposition - Plan for ED Patient: Disposition: Home or Assisted Living Instructions: Foley's Cyst Referrals: Raquel Mauro DO [Primary Care Provider] - 1 Week if not improving What to do if you have Problems For any increased pain, shortness of breath, bleeding, nausea or vomiting, chest pain, or any unexpected problems, contact your Primary Care Provider. Call [facility] ([phone]) or report to the closest Emergency Room. Call 911 if necessary. 06/09/19 1534 <Electronically signed by Marc Ray DO> Date Marc Ray DO Cosigner Signature (If Indicated): Date CC: Raquel Roy Start: 05-22-2019 End: 05-23-2019 SCREEN MAMM (CAD) W/YEISON ELIZABETH Comments: See Note; NOTES: [facility] Imaging Services [address] [place] [address] SCREEN MAMM (CAD) W/YEISON JOHNSON MR#: [id number] Acct: [id number] Name: OMAIRA OLIVER Rep #: [id number] : 1940 F 79 From: Jan White MD PCP: Raquel Mauro DO Status: REG CLI Study: SCREEN MAMM (CAD) W/YEISON BILAT Date of Exam: 05/22/19 Exam# [id number] Ordering Dr: Raquel Mauro DO MAMMOGRAPHY - BILATERAL SCREENING 3-D TOMOSYNTHESIS REASON FOR EXAM: Female, 79 years old. Bilateral Screening 3-D tomosynthesis PERTINENT HISTORY: No significant family history. TECHNIQUE: 2-D mammograms and 3-D Tomosynthesis of the breast (s) were performed. CAD was performed. COMPARISON: May 10, 2018, April 10, 2017, January 18, 2016 FINDINGS: The breast composition is almost entirely fat. Scattered benign calcifications are seen. No dense spiculated masses or suspicious microcalcifications are identified. No architectural distortion is identified. There is no skin thickening or retraction. There has been no significant change since the prior study. BI/SCREEN MAMM (CAD) W/YEISON BILAT IMPRESSION: No mammographic signs of malignancy. Routine yearly mammograms recommended. ASSESSMENT CATEGORY: BIRADS Category 2: Benign. A letter regarding these results will be sent to the patient by the facility within 30 days. FOLLOW UP RECOMMENDATION: Yearly follow up mammogram recommended. (A) Approximately 10% of breast cancers are not detected by mammography. A normal mammogram should not delay biopsy of a clinically suspicious abnormality. Electronically Signed: Jan White MD at 16:04 EDT , Service support , CC: Raquel Mauro DO Dimmer Board Operator: Signed Raquel Mauro Work Phone: Start: 03-27-2019 End: 03-27-2019 Echocardiogram Complete Comments: See Note; NOTES: [facility] Cardiovascular Services [address] [place] [address] Echo Complete 03/27/19 0911 MR#: [id number] Acct: [id number] Name: OMAIRA OLIVER Rep #: [id number] : 1940 78 From: Brad Holguin MD Attending Dr: Raquel Mauro DO Status: REG CLI Ordering Dr: Raquel Mauro DO Date: 03/27/19 Location: [facility] Sex: F C Admitted: Reason For Study: PHTN Procedure This was a 2D Doppler, Color Flow transthoracic echocardiogram. The exam was of adequate technical quality. Exam performed in department. Left Ventricle Normal LV size. Left ventricular systolic function is normal. The estimated ejection fraction is 65 %. Diastolic function is indeterminate. No regional wall motion abnormalities noted. Right Ventricle Normal RV size. Normal systolic function. Atria The left atrium is moderately enlarged. The right atrium is mildly enlarged. No doppler evidence for ASD. Mitral Valve There is moderate mitral annular calcification. Extension of the mitral annular calcification onto the posterior mitral valve leaflet. Mild (1+) mitral valve insufficiency. Tricuspid Valve Normal tricuspid valve. Trivial tricuspid valve insufficiency. Right ventricular systolic pressure estimated to be 28 mmHg. Aortic Valve Trisinus/trileaflet aortic valve. Mild focal aortic valve calcification. Pulmonic Valve The pulmonic valve is not well visualized. Trivial pulmonic valve insufficiency. Great Vessels Normal sized aortic root. Pericardium/Pleural No pericardial effusion. MMode/2D Measurements AND Calculations LVIDd: 4.7 cm IVSd: 0.98 cm LVOT diam: 2.0 cm LVIDs: 2.9 cm LVPWd: 1.0 cm LVOT area: 3.0 cm2 RVDd: 3.2 cm FS: 39.1 % Ao root diam: 3.3 cm LAV(MOD-bp): 56.7 ml LA A4 area: 18.6 cm2 LAV(MOD-bp) Indexed: 32.4 ml/m2 LAV(MOD-sp2): 51.2 ml LAV(MOD-sp4): 49.2 ml LA dimension(2D): 3.9 cm RA A4 area: 15.9 cm2 Time Measurements MV dec time: 0.24 sec Doppler Measurements AND Calculations MV E max cierra: 105.8 cm/sec Lat Peak E' Cierra: 6.1 cm/sec Med Peak E' Cierra: 5.6 cm/sec MV A max cierra: 139.2 cm/sec E/E' lat: 17.4 E/E' med: 19.1 MV E/A: 0.76 Ao V2 max: 184.9 cm/sec LV V1 max: 135.2 cm/sec SV(LVOT): 93.6 ml Ao max P.7 mmHg LV V1 max P.3 mmHg Ao V2 mean: 128.1 cm/sec LV V1 mean P.1 mmHg Ao mean P.2 mmHg LV V1 mean: 97.1 cm/sec Ao V2 VTI: 40.5 cm LV V1 VTI: 31.1 cm DEONNA(I,D): 2.3 cm2 DEONNA(V,D): 2.2 cm2 PA V2 max: 73.8 cm/sec TR max cierra: 220.4 cm/sec TR max P.5 mmHg Interpretation Summary Left ventricular systolic function is normal. The estimated ejection fraction is 65 %. The left atrium is moderately enlarged. The right atrium is mildly enlarged. There is moderate mitral annular calcification. Extension of the mitral annular calcification onto the posterior mitral valve leaflet. Mild (1+) mitral valve insufficiency. Trivial tricuspid valve insufficiency. Mild focal aortic valve calcification. Trivial pulmonic valve insufficiency. Right ventricular systolic pressure estimated to be 28 mmHg. Diastolic function is indeterminate. Ordering Physician: Raquel Mauro Referring Physician: Raquel Mauro Performed By: Connie Triplett, RDCS, RVT 03/27/19 1440 Date Brad Holguin MD CC: Raquel Mauro DO Date Dictated: 03/27/19 0911 Date Transcribed: 03/27/19 1440 Dimmer Board Operator: Signed Raquel Mauro Work Phone: Start: 07-08-2018 End: 07-08-2018 Cardiology Visit Report Comments: See Note; NOTES: [facility] [address] [place] [address]. [address] [place] [address] OFFICE VISIT Date of Service: 07/08/18 MR#: [id number] Acct: [id number] Name: OMAIRA OLIVER Rep #: [id number] : 1940 Provider: Brad Holguin MD Age/Sex: 78/F Location: [facility] [place] Status: Signed HPI HPI Details: OMAIRA OLIVER, is a 78 F who presents to the office today for for outpatient cardiovascular follow-up of her history of underlying valvular heart disease, pulmonary hypertension, essential hypertension, and decreased diastolic compliance. Overall since her last visit of 10/09/2017 she states she has been doing well. She is not complaining of any ongoing issues of classic angina pectoris or overt issues of CHF or pulmonary edema. There has been no issues with respect to near syncope or syncope. She continues to have an element of lower extremity peripheral pitting edema although she states it has not necessarily worsened she has not required any additional cardiovascular diagnostic studies or therapeutic interventions. She states overall since her original visit she is feeling much better. Intake Vital Signs07/08/18 Height 5 ft 3 in 07/08/18 Weight: 150 lb 07/08/18 Body Mass Index (BMI) 26.5 07/08/18 Blood Pressure 140/80 Intake Visit Reasons: 9 M FU Allergies cortisone Adverse Reaction (Verified 07/08/18 12:10) Nausea hydrochlorothiazide Adverse Reaction (Verified 07/08/18 12:10) Other morphine Adverse Reaction (Verified 07/08/18 12:10) Other nitrofurantoin [From Macrobid] Adverse Reaction (Verified 07/08/18 12:10) Other Medications Amlodipine [Norvasc] 5 mg PO DAILY 08/28/17 [History Confirmed 07/08/18] aspirin 81 mg tablet,delayed release 81 mg PO QDAY 07/03/18 [History Confirmed 07/08/18] calcium-vitamin D3-vitamin K 500 mg-500 unit-40 mcg chewable tablet 1 tab PO QDAY tab 07/03/18 [History Confirmed 07/08/18] naproxen sodium 220 mg tablet 220 mg PO BID PRN 07/03/18 [History Confirmed 07/08/18] cholecalciferol (vitamin D3) 5,000 unit tablet 5,000 unit PO QDAY 07/08/18 [History Confirmed 07/08/18] [facility] Medical History History of aortic valve disorder (Acute) GERRY (obstructive sleep apnea) (Chronic) Nonrheumatic tricuspid (valve) insufficiency (Acute) Nonrheumatic mitral valve regurgitation (Acute) Diastolic dysfunction (Acute) Pulmonary hypertension (Acute) Hypertension (Chronic) Acute hemorrhoid (Acute) Anemia (Acute) Back pain (Acute) Basal cell carcinoma (Acute) Difficulty balancing (Acute) Hiatal hernia (Acute) Limb weakness (Acute) Neck pain (Acute) Trigger finger of thumb (Acute) GERD (gastroesophageal reflux disease) (Chronic) Knee pain (Resolved) Surgical History History of partial knee replacement (Acute) History of back surgery (Resolved) History of spinal fusion (Resolved) Hx of carpal tunnel repair (Resolved) Hx of cholecystectomy (Resolved) Hx of hysterectomy (Resolved) Hx of tonsillectomy (Resolved) Status post trigger finger release (Resolved) H/O: hysterectomy (Inactive) History of tonsillectomy (Inactive) Hx of cholecystectomy (Inactive) h/o left carpal tunnel release (Inactive) s/p right knee UKA (Inactive) spinal fusion (Inactive) Family History Mother Hypertension Father Hypertension Grandmother CVA (cerebral vascular accident) Grandfather Myocardial infarction Grandfather Myocardial infarction Other Cervical cancer Lung cancer Social History Smoking Status: Never smoker alcohol intake: never substance use type: does not use ROS Const Const: Negative for fatigue, weakness, weight gain, weight loss, frequent falls or excessive sweating Eyes Eyes: Negative for change in vision, blurry vision or transient loss of vision ENT ENT: Positive for balance problems (S/P right partial knee replacment); negative for dizziness Cardio Chest Pain: No Palpitations: No Edema: Bilateral (wears compression stockings) Muscle aches with walking: None Resp Respiratory: Negative for SOB with activity or SOB at rest GI GI: Negative vomiting or vomiting blood/hematemesis : Negative for hematuria Musc Musc: Positive for balance problems (S/P right partial knee replacment), muscle weakness (S/P right partial knee replacment) and joint pain (S/P right partial knee replacment); negative for muscle aches/ myalgia Skin Skin: Negative non-healing lesions or rash Neuro Neuro: Negative for weakness, blurry vision, dizziness, lightheadedness, frequent falls or orthostatic symptoms Jonas Hematologic/Lymphatic: Negative for easy bleeding Endo Endo: Negative for fatigue or excessive sweating Psych Psych: Negative for anxiety or depression Allergy Allergy/Immunology: Negative for hives, Negative for rash Cardiology Exam Const Appearance: cooperative, healthy appearing, comfortable, well developed and well groomed Nutritional Appearance: thin Orientation: alert, awake and oriented x3 Head Head: normal to inspection, normocephalic and atraumatic Ears: hearing grossly normal bilaterally Nose: external nose normal Face and Sinus: face symmetric Mouth: oral mucosae normal Teeth and gingiva: fair dentition Eyes Eyelids: eyelids normal Conjunctivae: conjunctivae normal Pupils: PERRL EOM: EOM intact bilaterally Neck Neck: normal visual inspection and full ROM Carotids: normal carotid upstroke Chest Chest inspection: normal inspection of the chest and symmetric chest movement Auscultation: Bilateral: Clear to Auscultation Cardio Palpation: normal PMI Rate: regular rate Rhythm: regular rhythm Heart sounds: S1 normal, S2 normal and positive S4 Murmur: Grade 2/6, mid systolic, LLSB and LVOT GI GI: normal to inspection, bowel sounds present, soft and no hepatosplenomegaly Neuro General: alert, awake, oriented x3, gait normal, moves all extremities, no focal sensory deficit and no focal motor deficits Skin Skin: no rashes or lesions noted Extremities Pulses: Normal: Right Radial Pulse, Left Radial Pulse Lower Extremity Edema: +1: Bilateral (Wearing support stock) Psych Psychological: normal affect Supplemental Info She had a transthoracic echocardiogram on 120 7T 17. Per the report the left ventricle was normal with an LVEF of 60%. There was an apical false tendon, mild biatrial enlargement, moderate mitral annular calcification, mild diffuse mitral valve thickening with mild MR, mild TR, mild diffuse aortic valve thickening, and estimated RV systolic pressure of 39 mmHg, and decreased diastolic compliance She had a stress nuclear imaging [id number] on 01/23/2017. Per the myocardial perfusion report her myocardial perfusion was within normal limits with a gated LVEF reported at 81%. Assessment AND Plan 1. 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 She appears to be without significant change based on history or examination. She will continue to be followed as an outpatient with consideration being given in the future of follow-up echocardiographic study 2. 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 She will continue her evaluation care as described above 3. History of aortic valve disorder Z86.79 Plan Again she has underlying valvular heart disease. She has had no significant change by history. Her physical exam has been without significant change. It was not felt she required repeat diagnostic studies or therapeutic intervention at this time. She will be followed in the future with echocardiographic studies. 4. Diastolic dysfunction I51.9 Plan She does have a history of decreased diastolic compliance. She appears to be doing well at this time on her current medication. This will be continued. 5. Pulmonary HTN I27.20 Plan She does have a history of pulmonary hypertension. Based upon her last echocardiogram this was mild. She will continue her current medical management and follow-up. Over time this will include echocardiographic studies to monitor her estimated right-sided pressures. 6. Essential hypertension I10 Plan Her blood pressure appears to be reasonably well-controlled at the moment. She will continue to monitor. If her blood pressure trends upward she may need further adjustment of antihypertensive therapy. 7. Hyperlipidemia, unspecified hyperlipidemia type E78.5 Plan She states that she is following with her primary care physician for her lipid profile. Thus far she has not been placed on lipid-lowering medication 8. Bilateral edema of lower extremity R60.0 Plan She does have an element of lower extremity edema. She appears to be doing reasonably well with her current medications and the use of her support stockings. She will monitor for any progression. Plan Detail Additional Comments Thank you for allowing me to participate in the care of your patient. Please don't hesitate to call if any issues arise. This note was generated using a voice recognition system and there may be incorrect words, spelling or punctuation that were not noted when reviewing the office note prior to saving. 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 History of aortic valve disorder Z86.79 Diastolic dysfunction I51.9 Pulmonary HTN I27.20 Essential hypertension I10 Hypertension type: essential hypertension Hyperlipidemia, unspecified hyperlipidemia type E78.5 Hyperlipidemia type: unspecified Bilateral edema of lower extremity R60.0 Laterality: bilateral 07/08/18 1333 <Electronically signed by Brad Holguin MD> Date Brad Holguin MD Cosigner Signature: Date (if applicable) CC: Raquel Roy Start: 05-10-2018 End: 05-14-2018 SCREENING MAMM (CAD), BILAT Comments: See Note; NOTES: [facility] Imaging Services [address] [place] [address] SCREENING MAMM (CAD), BILAT MR#: [id number] Acct: [id number] Name: OMAIRA OLIVER Rep #: [id number] : 1940 F 77 From: Ian Bhatia MD PCP: Raquel Mauro DO Status: REG CLI Study: SCREENING MAMM (CAD), BILAT Date of Exam: 05/10/18 Exam# [id number] Ordering Dr: Raquel Mauro DO MAMMOGRAPHY - BILATERAL SCREENING REASON FOR EXAM: Female, 78 years old. Routine annual screening examination. PERTINENT HISTORY: Non-contributory. TECHNIQUE: Digital bilateral breast yeison (3D mammographic acquisition) in the CC and MLO projections. 2-D mediolateral oblique (MLO) and craniocaudad (CC) views of both breasts were obtained. CAD: Full Field Digital Mammography with Computer Added Detection was performed. COMPARISON: Comparison is made with prior study dated April 10, 2017 and January 18, 2016. FINDINGS: Breast Composition: The breasts are heterogeneously dense, which may obscure small masses. There are no dominant masses or suspicious calcifications. No other significant abnormalities are identified. There has been no significant change since the prior study. BI/SCREENING MAMM (CAD), BILAT IMPRESSION: Stable bilateral screening mammogram. Yearly follow-up mammogram recommended. (A) ASSESSMENT CATEGORY: BIRADS Category 1: Negative. A letter regarding these results will be sent to the patient by the facility within 30 days. Approximately 10% of breast cancers are not detected by mammography. A normal mammogram should not delay biopsy of a clinically suspicious abnormality. [id number] Electronically Signed: Ian Bhatia MD at 8:27 EDT Tel [phone], Service support , CC: Raquel Mauro DO Dimmer Board Operator: Signed Raquel Mauro Work Phone: Start: 04-24-2018 End: 04-24-2018 Orthopedic Visit Report Comments: See Note; NOTES: [facility] Orthopaedics AND Sports Medicine [address] [place] [address] OFFICE VISIT Date of Service: 04/15/18 MR#: [id number] Acct: [id number] Name: OMAIRA OLIVER Rep #: [id number] : 1940 Provider: Calvin Alanis DO Age/Sex: 77/F Location: [facility] [place] Status: Signed Intake Intake Visit Reasons: RIGHT KNEE Is patient in pain?: No Allergies cortisone Adverse Reaction (Verified 03/18/18 09:29) Nausea hydrochlorothiazide Adverse Reaction (Verified 03/18/18 09:29) Other morphine Adverse Reaction (Verified 03/18/18 09:29) Other nitrofurantoin [From Macrobid] Adverse Reaction (Verified 03/18/18 09:29) Other [facility] Adverse Reaction (Uncoded 02/26/18 13:04) Other Medications Calcium Carb/Vitamin D3/Vit K1 [Viactiv Soft Chew] 1 ea PO BID 12/25/16 [History Confirmed 03/05/18] Cholecalciferol (Vitamin D3) [Vitamin D3] 5,000 unit PO DAILY 12/25/16 [History Confirmed 03/05/18] Polyvinyl Alcohol/Povidone/Pf [Refresh Classic Eye Drops] 1 ea OP DAILY PRN 12/25/16 [History Confirmed 03/05/18] Amlodipine [Norvasc] 5 mg PO DAILY 08/28/17 [History Confirmed 03/05/18] Betafood 2 tab PO BID 02/26/18 [History Confirmed 03/05/18] Chlorphil Couplex 1 cap PO TID 02/26/18 [History Confirmed 03/05/18] Fencho 1 cap PO TID 02/26/18 [History Confirmed 03/05/18] Gb Tone 26 drop PO TID 02/26/18 [History Confirmed 03/05/18] Armenian Black Radish 1 tab PO TID 02/26/18 [History Confirmed 03/05/18] Spleen Dessicated 1 tab PO BID 02/26/18 [History Confirmed 03/05/18] Spleen Pmg 1 tab PO TID 02/26/18 [History Confirmed 03/05/18] Zypan 1 tab PO TID 02/26/18 [History Confirmed 03/05/18] traMADol [Ultram] 50 mg PO Q6H 02/26/18 [History Confirmed 03/05/18] Aspirin E.C. [Ecotrin] 325 mg PO BID #30 tab 03/06/18 [Rx] Docusate Sodium [Colace] 100 mg PO BID PRN PRN #10 cap 03/06/18 [Rx] Famotidine [Pepcid] 40 mg PO DAILY #30 tab 03/06/18 [Rx] proMETHazine tablet [Phenergan] 25 mg PO Q4H PRN PRN #10 tab 03/06/18 [Rx] tramadol 50 mg tablet 50 mg PO Q4H PRN PRN #42 tab 03/18/18 [Rx Confirmed 03/18/18] PFSH Medical History Basal cell carcinoma (Acute) Mitral insufficiency (Acute) Hypertension (Chronic) Surgical History s/p right knee UKA (Acute) H/O: hysterectomy (Inactive) History of tonsillectomy (Inactive) Hx of cholecystectomy (Inactive) h/o left carpal tunnel release (Inactive) spinal fusion (Inactive) Social History Smoking Status: Never smoker HPI RIGHT KNEE: Details: OMAIRA OLIVER is a 77 year old F here today for f/u right UKA 03/05/18. Patient is ambulating well with very few degrees of an extension lag remaining but no assistive device needed. She begins outpatient PT today. No complaints of calf pain, very little numbness in lateral knee. ROS Musc Reports as per HPI, Reports limited joint movement, Reports stiffness, Reports joint pain, Reports joint swelling Ortho Exam Right Knee Skin/Wound: Yes CDI Contralateral Normal: Yes Swelling: No Homans Sign: No Knee ROM: Yes ROM-Flexion 0-140 (0-125) Quad Atrophy: No Stability: NML: Anterior Drawer, NML: Dane, NML: Posterior Drawer, NML: Valgus 0, NML: Valgus 30, NML: Varus 0, NML: Varus 30, NML: Dial 90, NML: Dial 30 Popliteal Adenopathy: No Patella Translation: 1 Apprehension with Lateral Translation: No Patellar Tilt Normal: Yes Patella Grind: No KNEE: No calf pain negative Homans. Range of motion 0-125. X-rays: Evaluated by myself the patient-hardware otherwise well-seated well-placed status post right unicompartmental arthroplasty Left Knee Patella Translation: 1 Assessment AND Plan Problems 1. Orthopedic aftercare Z47.89 Plan Assessment: After orthopedic status post right unicompartmental arthroplasty doing well. Plan: This point time is continue to encourage patient on gaining range of motion and working on better extension to be I see a little bit rocker-bottom to her knee. Otherwise doing very well. We will see her back in 6 weeks no x-rays range of motion check only. Orders Orders: Coding Level of Care Code Global Post Op Diagnoses Orthopedic aftercare Z47.89 04/24/18 0810 <Electronically signed by Calvin Alanis DO> Date Calvin Austinignsarmad Signature: Date (if applicable) CC: Raquel Maruo Start: 04-15-2018 End: 04-15-2018 Knee 4 or More Views Comments: See Note; NOTES: [facility] Imaging Services [address] [place], [place] [address] [address] Knee 4 or More Views MR#: [id number] Acct: [id number] Name: OMAIRA OLIVER Rep #: [id number] : 1940 F 77 From: Andrew Arcos DO PCP: Raquel Mauro DO Status: REG CLI Study: Knee 4 or More Views Date of Exam: 04/15/18 Exam# [id number] Ordering Dr: Calvin Alanis DO STUDY: X-RAY - RIGHT KNEE REASON FOR EXAM: Female, 77 years old. Postop. TECHNIQUE: 4 view(s) of the knee. COMPARISON: None. FINDINGS: The patient is status post medial arthroplasty. The prosthetic components are intact and the heart calculated normally with each other. There is no loosening from the underlying bone. The distal femur and proximal tibia are otherwise unremarkable. Normal proximal fibula. There is no fracture or destructive osseous pathology. Normal lateral femorotibial compartment. Normal patellofemoral articulation. There is a small suprapatellar joint effusion. The soft tissue structures are unremarkable. RAD/Knee 4 or More Views IMPRESSION: Status post medial knee arthroplasty. There is a small suprapatellar joint effusion. Electronically Signed: Andrew Arcos DO at 16:54 EDT Tel [phone], Service support , CC: Raquel Mauro DO; Calvin Alanis DO Dimmer Board Operator: Signed Raquel Mauro Start: 04-11-2018 End: 04-11-2018 Inital Evaluation (1) - PT Comments: See Note; NOTES: [facility] Physical Therapy [facility] [address] [place] [address]. [address] [place] [address] Fax REHABILITATION SERVICES INITIAL EVALUATION MR#: [id number] Acct: [id number] Name: OMAIRA OLIVER Rep #: [id number] : 1940 77 From: Sherif Richter PT, ATC Referring DrTone: Calvin Alanis DO Status: REG RCR Insurance: [facility] [employer] Patient's Visit Information OMAIRA OLIVER is a 77 year old F referred to Physical Therapy by Calvin Alanis DO with a diagnosis of R UKA. Date of Evaluation: 04/11/18 Physical Therapist: Sherif Richter, PT, - Visit Plan Frequency: 3x /Week Duration: 4-6 Weeks Plan: R knee PROM/MOBS, R LE stretching and strengthening, balance and proprio, core stab ex's, nustep, and HEP - Subjective Subjective: Pt comes to PT today s/p R UKA. Pt had R medial knee pain 6 months ago diagnosed as bursitis. Xrays of knees from September were normal. UKA date of surgery is March 05. Pt had home health PT prior to this visit focused on ROM, strengthening, gait training. Pt uses cane for fear of falling in the mornings and around the house. Reports knee buckling and the knee feeling unsteady. Pt notes knee swelling by the end of the day. Icing and tylenol help alleviate the pain. Surgicial site is red and closed. Pt reports pain 1/10 on the medial aspect of the knee at present moment. Notes numbness on lateral aspect of knee. Pt reports pain being the worst 10/10 this morning when twisting to get into the bathroom. Pt goals include returning to gardening, bending, decreasing swelling, and working on balance. - Pain R knee Pain Intensity (Out of 10): 1 Pain Intensity Range: 10 - Objective Neuro: all sensation to light tough is intact in the B LE. Reflexes: achilles 2+ Bliat. ROM: R knee ext -1-0-119; L: knee ext -3-0-89. MMT: R: flex 4, ext 5; L: flex 3+*, ext 3+*. Surgicial Incision: healing nicely; slight redness noted. Girth: R 39cm; L 41 cm - Goals Goal 1:: Decrease R knee pain x 50% to aid with pt's gina for prolonged ambulation Goal Time Frame: 4-6 Weeks Goal 2:: Increase R knee ROM x 30 degrees to aid with restoring a more normal gait pattern Goal Time Frame: 4-6 Weeks Goal 3:: Increase R knee strength x 1 grade to aid with stair negotiation Goal Time Frame: 4-6 Weeks Goal 4:: I with HEP Goal Time Frame: 4-6 Weeks - Rehabilitation Potential Physical Therapy Diagnosis: R knee pain, weakness, and limited ROM secondary to R UKA Rehabilitation Potential: Good - Anticipated Interventions Patient/Client Instruction: Educate patient on: Condition, Plan of Care For the Purpose of:: To improve self management Therapeutic Exercise to Include: Strength training, Endurance training, Balance training, Flexibilty training, Gait and locomotor training, Active ROM, Dynamic Lumbar Stabilization For the Purpose of:: To decrease pain, To increase ROM, To improve muscle performance and motor function Cryotherapy (ice pack, ice massage): Yes For the Purpose of:: To decrease pain Thank you for the opportunity to evaluate your patient. For Medicare and Medicare HMO plans, please review the plan of care and approve it. It will need to be FAXED BACK to us at [phone] for Medicare purposes. Please let me know if there are questions or concerns regarding this plan of care. Physician Signature: _Date: <Electronically signed by Sherif Richter PT, ATC> 04/11/18 1632 CC: Raquel Alanis DO [facility] Signed For Medicare only, by signing this I certify the plan of care. Physicians Signature Date Raquel Mauro Start: 03-20-2018 End: 03-20-2018 Orthopedic Visit Report Comments: See Note; NOTES: [facility] Orthopaedics AND Sports Medicine [address] [place] [address] OFFICE VISIT Date of Service: 03/18/18 MR#: [id number] Acct: [id number] Name: OMAIRA OLIVER Rep #: [id number] : 1940 Provider: Calvin Alanis DO Age/Sex: 77/F Location: [facility] Status: Signed Intake Intake Visit Reasons: RIGHT KNEE Is patient in pain?: Yes Pain scale (1-10): 2 Allergies cortisone Adverse Reaction (Verified 03/18/18 09:29) Nausea hydrochlorothiazide Adverse Reaction (Verified 03/18/18 09:29) Other morphine Adverse Reaction (Verified 03/18/18 09:29) Other nitrofurantoin [From Macrobid] Adverse Reaction (Verified 03/18/18 09:29) Other [facility] Adverse Reaction (Uncoded 02/26/18 13:04) Other Medications Calcium Carb/Vitamin D3/Vit K1 [Viactiv Soft Chew] 1 ea PO BID 12/25/16 [History Confirmed 03/05/18] Cholecalciferol (Vitamin D3) [Vitamin D3] 5,000 unit PO DAILY 12/25/16 [History Confirmed 03/05/18] Polyvinyl Alcohol/Povidone/Pf [Refresh Classic Eye Drops] 1 ea OP DAILY PRN 12/25/16 [History Confirmed 03/05/18] Amlodipine [Norvasc] 5 mg PO DAILY 08/28/17 [History Confirmed 03/05/18] Betafood 2 tab PO BID 02/26/18 [History Confirmed 03/05/18] Chlorphil Couplex 1 cap PO TID 02/26/18 [History Confirmed 03/05/18] Fencho 1 cap PO TID 02/26/18 [History Confirmed 03/05/18] Gb Tone 26 drop PO TID 02/26/18 [History Confirmed 03/05/18] Armenian Black Radish 1 tab PO TID 02/26/18 [History Confirmed 03/05/18] Spleen Dessicated 1 tab PO BID 02/26/18 [History Confirmed 03/05/18] Spleen Pmg 1 tab PO TID 02/26/18 [History Confirmed 03/05/18] Zypan 1 tab PO TID 02/26/18 [History Confirmed 03/05/18] traMADol [Ultram] 50 mg PO Q6H 02/26/18 [History Confirmed 03/05/18] Aspirin E.C. [Ecotrin] 325 mg PO BID #30 tab 03/06/18 [Rx] Docusate Sodium [Colace] 100 mg PO BID PRN PRN #10 cap 03/06/18 [Rx] Famotidine [Pepcid] 40 mg PO DAILY #30 tab 03/06/18 [Rx] proMETHazine tablet [Phenergan] 25 mg PO Q4H PRN PRN #10 tab 03/06/18 [Rx] tramadol 50 mg tablet 50 mg PO Q4H PRN PRN #42 tab 03/18/18 [Rx Confirmed 03/18/18] PFSH Medical History Basal cell carcinoma (Acute) Mitral insufficiency (Acute) Hypertension (Chronic) Surgical History s/p right knee UKA (Acute) H/O: hysterectomy (Inactive) History of tonsillectomy (Inactive) Hx of cholecystectomy (Inactive) h/o left carpal tunnel release (Inactive) spinal fusion (Inactive) Social History Smoking Status: Never smoker HPI RIGHT KNEE: Details: OMAIRA OLIVER is a 77 year old F here today for s/p right UKA, dos 03/05/18. Patient states that she is doing well and having minimal pain. She is taking tramadol for pain. She is ambulating with a walker. She notes she has tightness with range of motion. Patient is currently in home physical therapy. Her incision is fully healed. ROS Const Reports system reviewed and no additional complaints, except as docu Eyes Reports system reviewed and no additional complaints, except as docu ENT Reports system reviewed and no additional complaints, except as docu Card Reports system reviewed and no additional complaints, except as docu Resp Reports system reviewed and no additional complaints, except as docu GI Reports system reviewed and no additional complaints, except as docu Reports system reviewed and no additional complaints, except as docu Skin/Breast Reports system reviewed and no additional complaints, except as docu Neuro Yes system reviewed and no additional complaints, except as docu Psych Reports system reviewed and no additional complaints, except as docu Endo Reports system reviewed and no additional complaints, except as docu Ortho Exam Right Knee Skin/Wound: Yes CDI Contralateral Normal: Yes Swelling: No Homans Sign: No 1+: Effusion Knee ROM: Yes ROM-Flexion 0-140 (0-95) Quad Atrophy: No Stability: NML: Anterior Drawer, NML: Dane, NML: Posterior Drawer, NML: Valgus 0, NML: Valgus 30, NML: Varus 0, NML: Varus 30, NML: Dial 90, NML: Dial 30 Popliteal Adenopathy: No Patella Translation: 1 Apprehension with Lateral Translation: No Patellar Tilt Normal: Yes Patella Grind: No KNEE: Distally neurovascular intact. Incision clean dry and intact. No signs of erythema. Mild effusion. Range of motion 0-95. No calf pain negative Homans. Left Knee Patella Translation: 1 Assessment AND Plan Problems 1. Orthopedic aftercare Z47.89 Plan Assessment: After orthopedic status post right knee unicompartmental arthroplasty. Doing well. Plan: This point time we will go ahead and refill the patient's pain medication which is tramadol and then also send her to outpatient physical therapy for continued work on motion. I told patient she really needs to be better in that knee that it is a race between her gaining stiffness and gaining motion. I think ultimately outpatient physical therapy be more productive than home health at this point. Patient agrees to plan. See her back in 4 weeks for x-rays at that time. Patient can go ahead and DC the aspirin at 325 p.o. twice daily and just use 81 mg daily Medications Refilled: Coding Level of Care Code Global Post Op Diagnoses Orthopedic aftercare Z47.89 03/20/18 1352 <Electronically signed by Calvin Alanis DO> Date Calvin Cohen Signature: Date (if applicable) CC: Raquel Mauro Start: 03-01-2018 End: 03-01-2018 12 lead ECG Comments: See Note; NOTES: [facility] Cardiovascular Services [address] [place] [address] EKG - [facility] [place] 02/26/18 1234 MR#: [id number] Acct: [id number] Name: OMAIRA OLIVER Clement Rep #: [id number] : 1940 77 From: Kentrell Palacios MD Attending Dr: Calvin Alanis DO Status: PRE IN Ordering Dr: Sebastian Blancas MD Date: 02/26/18 Location: [facility] [place] Sex: F C Admitted: Test Reason : Blood Pressure : / mmHG Vent. Rate : 074 BPM Atrial Rate : 074 BPM P-R Int : 142 ms QRS Dur : 082 ms QT Int : 396 ms P-R-T Axes : 050 -04 047 degrees QTc Int : 439 ms Normal sinus rhythm Normal ECG Confirmed by KATE STRONG, KENTRELL ([id number]), multimedia editor JORGE ZUNIGA ([id number]) on 03/01/2018 12:49:45 PM Referred By: Calvin Alanis Confirmed By:KENTRELL PALACIOS MD 03/01/18 1249 Date Kentrell Palacios MD CC: Sebastian Blancas MD; Raquel Mauro DO; Calvin Alanis DO Date Dictated: 02/26/18 1234 Date Transcribed: 02/26/18 1234 Dimmer Board Operator: Signed Raquel Mauro Work Phone: Start: 02-24-2018 End: 02-24-2018 Orthopedic Visit Report Comments: See Note; NOTES: [facility] Orthopaedics AND Sports Medicine [address] [place] [address] OFFICE VISIT Date of Service: 02/20/18 MR#: [id number] Acct: [id number] Name: OMAIRA OLIVER Rep #: [id number] : 1940 Provider: Calvin Alanis DO Age/Sex: 77/F Location: [facility] [place] Status: Signed Intake Intake Visit Reasons: RIGHT KNEE Is patient in pain?: Yes Pain scale (1-10): 7 Allergies hydrochlorothiazide Adverse Reaction (Verified 02/20/18 12:49) Other morphine Adverse Reaction (Verified 02/20/18 12:49) Other nitrofurantoin [From Macrobid] Adverse Reaction (Verified 02/20/18 12:49) Other [facility] Adverse Reaction (Uncoded 10/04/17 09:55) Other Medications Aspirin E.C. [Ecotrin] 81 mg PO DAILY@0800 12/25/16 [History Confirmed 02/20/18] Calcium Carb/Vitamin D3/Vit K1 [Viactiv Soft Chew] 1 ea PO BID 12/25/16 [History Confirmed 02/20/18] Cholecalciferol (Vitamin D3) [Vitamin D3] 5,000 unit PO DAILY 12/25/16 [History Confirmed 02/20/18] Polyvinyl Alcohol/Povidone/Pf [Refresh Classic Eye Drops] 1 ea OP DAILY PRN 12/25/16 [History Confirmed 02/20/18] Zolpidem Tartrate [Ambien] 5 mg PO QHS PRN PRN 12/25/16 [History Confirmed 02/20/18] Amlodipine [Norvasc] 5 mg PO DAILY 08/28/17 [History Confirmed 02/20/18] Aspirin/Acetaminophen/Caffein e [Excedrin Extra Strength Caplet] 2 ea PO PRN PRN 10/04/17 [History Confirmed 02/20/18] naproxen sodium 220 mg capsule 220 mg PO Q12H 01/16/18 [History Confirmed 02/20/18] handicap placard See Label Instructions .ROUTE .COMPLEX #1 MDD 6 months 02/08/18 [Rx Confirmed 02/20/18] tramadol 50 mg tablet 50 mg PO Q6H #30 tab 02/13/18 [Rx Confirmed 02/20/18] PFSH Medical History Basal cell carcinoma (Acute) Mitral insufficiency (Acute) Hypertension (Chronic) Surgical History H/O: hysterectomy (Inactive) History of tonsillectomy (Inactive) Hx of cholecystectomy (Inactive) h/o left carpal tunnel release (Inactive) spinal fusion (Inactive) Social History Smoking Status: Never smoker HPI RIGHT KNEE: Details: OMAIRA OLIVER is a 77 year old F here today to ask questions regarding her upcoming surgery, she continues to have medial knee pain with tenderness at the pes anserine. She has pain with walking and uses a cane. The tramadol is helpful as well as ice but she states there is not much time when she is painfree. Denies numbness, tingling or other associated symptoms. ROS Const Reports system reviewed and no additional complaints, except as docu Eyes Reports system reviewed and no additional complaints, except as docu ENT Reports system reviewed and no additional complaints, except as docu Card Reports system reviewed and no additional complaints, except as docu Resp Reports system reviewed and no additional complaints, except as docu GI Reports system reviewed and no additional complaints, except as docu Musc Reports joint pain, Reports abnormal walking, Reports limited joint movement Skin/Breast Reports system reviewed and no additional complaints, except as docu Neuro Yes system reviewed and no additional complaints, except as docu, Yes abnormal walking Psych Reports system reviewed and no additional complaints, except as docu Endo Reports system reviewed and no additional complaints, except as docu Ortho Exam Right Knee KNEE: Exam deferred Assessment AND Plan Problems 1. Other internal derangements of right knee M23.8X1 2. Derangement of medial meniscus of right knee M23.303 3. Chronic pain of right knee M25.561; G89.29 Plan a/p: This point time is really more of a question answer type evaluation. There was no examination. We just discussed the surgical intervention and what the surgical intervention would entail aware that the patient wanted to change her operative intervention. Patient is currently scheduled for unicompartmental arthroplasty versus total knee. The patient was still wondering if she is going get relief to her bursitis I can tell her that I am not completely sure if that will be the case. The procedure will be for treatment of the intra-articular pathology. Otherwise I could schedule her for a hamstring release if she desired. We also discussed the possibility of proceeding with a diagnostic knee scope for meniscus repair and see how she were to respond to that. However at this point after discussion the patient would like to proceed with more definitive procedure which revealed unicompartmental arthroplasty based on her meniscal pathology and chondral injury to the knee. Patient is scheduled currently. We will go and proceed again with UKA versus total knee arthroplasty. Coding Level of Care Code Off vis,est,level 2 Diagnoses Other internal derangements of right knee M23.8X1 Derangement of medial meniscus of right knee M23.303 Chronic pain of right knee M25.561; G89.29 Chronicity: chronic 02/24/18 1034 <Electronically signed by Calvin Alanis DO> Date Calvin Alanis DO Cosigner Signature: Date (if applicable) CC: Raquel Mauro Start: 02-11-2018 End: 02-11-2018 Orthopedic Visit Report Comments: See Note; NOTES: [facility] Orthopaedics AND Sports Medicine [address] [place] [address] OFFICE VISIT Date of Service: 02/07/18 MR#: [id number] Acct: [id number] Name: OMAIRA OLIVER Rep #: [id number] : 1940 Provider: Calvin Alanis DO Age/Sex: 77/F Location: [facility] [place] Status: Signed Intake Intake Visit Reasons: right knee Is patient in pain?: Yes Allergies hydrochlorothiazide Adverse Reaction (Verified 01/16/18 12:53) Other morphine Adverse Reaction (Verified 01/16/18 12:53) Other nitrofurantoin [From Macrobid] Adverse Reaction (Verified 01/16/18 12:53) Other [facility] Adverse Reaction (Uncoded 10/04/17 09:55) Other Medications Aspirin E.C. [Ecotrin] 81 mg PO DAILY@0800 12/25/16 [History Confirmed 01/16/18] Calcium Carb/Vitamin D3/Vit K1 [Viactiv Soft Chew] 1 ea PO BID 12/25/16 [History Confirmed 01/16/18] Cholecalciferol (Vitamin D3) [Vitamin D3] 5,000 unit PO DAILY 12/25/16 [History Confirmed 01/16/18] Polyvinyl Alcohol/Povidone/Pf [Refresh Classic Eye Drops] 1 ea OP DAILY PRN 12/25/16 [History Confirmed 01/16/18] Zolpidem Tartrate [Ambien] 5 mg PO QHS PRN PRN 12/25/16 [History Confirmed 01/16/18] Amlodipine [Norvasc] 5 mg PO DAILY 08/28/17 [History Confirmed 01/16/18] Aspirin/Acetaminophen/Caffein e [Excedrin Extra Strength Caplet] 2 ea PO PRN PRN 10/04/17 [History Confirmed 01/16/18] naproxen sodium 220 mg capsule 220 mg PO Q12H 01/16/18 [History Confirmed 01/16/18] handicap placard See Label Instructions .ROUTE .COMPLEX #1 MDD 6 months 02/08/18 [Rx] PFSH Medical History Basal cell carcinoma (Acute) Mitral insufficiency (Acute) Hypertension (Chronic) Surgical History H/O: hysterectomy (Inactive) History of tonsillectomy (Inactive) Hx of cholecystectomy (Inactive) h/o left carpal tunnel release (Inactive) spinal fusion (Inactive) Social History Smoking Status: Never smoker HPI right knee: Details: OMAIRA OLIVER is a 77 year old F here today for a followup on his right knee MRI. Patient states that she continues to have right knee pain and medial knee pain. Patient ambulates with a cane and walks slowly. She continues to do a home exercise program. Denies numbness, tingling or other associated symptoms. ROS Const Reports system reviewed and no additional complaints, except as docu Eyes Reports system reviewed and no additional complaints, except as docu ENT Reports system reviewed and no additional complaints, except as docu Card Reports system reviewed and no additional complaints, except as docu Resp Reports system reviewed and no additional complaints, except as docu GI Reports system reviewed and no additional complaints, except as docu Reports system reviewed and no additional complaints, except as docu Musc Reports joint pain, Reports joint swelling Skin/Breast Reports system reviewed and no additional complaints, except as docu Neuro Yes system reviewed and no additional complaints, except as docu Psych Reports system reviewed and no additional complaints, except as docu Endo Reports system reviewed and no additional complaints, except as docu Ortho Exam Right Knee Contralateral Normal: Yes Swelling: Yes Homans Sign: No 1+: Effusion Knee ROM: Yes ROM-Flexion 0-140 (0-125) Examination: Yes Med jt line tenderness, Yes Pain with flexion, Yes Pain with extention, Yes Duck Walk, Yes Spike's Test Quad Atrophy: No Stability: NML: Anterior Drawer, NML: Dane, NML: Posterior Drawer, NML: Valgus 0, NML: Valgus 30, NML: Varus 0, NML: Varus 30, NML: Dial 90, NML: Dial 30 Apprehension with Lateral Translation: No Patellar Tilt Normal: Yes Patella Grind: No KNEE: General: well developed, well nourished in no acute distress. Head: normocephalic and atraumatic Pulses: pulses normal in all 4 extremities. Neurologic: no focal deficits, cranial nerves II-XII grossly intact with normal sensation, reflexed, coordination, muscle strength and tone. Axillary Nodes: no significant adenopathy. Psych: alert and cooperative, normal mood and affect, normal attention span and concentration. Heart regular with an S1-S2. Lungs clear to auscultation bilaterally. Abdomen is soft nontender nondistended no gross hepatosplenomegaly. MRI: Evaluated myself patient-medial meniscus extrusion with probable complex tear meniscal root appears to be maintained. Cartilage thinning through that region. Medial collateral ligament shows bursitis through that region as well. Patellofemoral joint lateral compartment is preserved. Patient continues show medial compartment pain. She had short-term relief from her knee injection. Continues point over the medial aspect of the knee. Reports mechanical giving way and instability. Remains otherwise ligaments are stable all planes. Assessment AND Plan Problems 1. Other internal derangements of right knee M23.8X1 2. Chronic pain of right knee M25.561; G89.29 3. Derangement of medial meniscus of right knee M23.303 Plan Assessment: Right knee medial meniscus tear and internal derangement and what okay was a negative is from wearing her brace if she is afraid I can make her unafraid of the knee and knee pain. Plan: This point time explained the patient her options. I told her that we can scope her knee for meniscus debridement as needed evaluate the other compartments of the knee but I was not positive this would give her significant relief as she has meniscal extrusion. Her meniscal root is intact and I do not feel that we were unable to modify her meniscal pathology in order to improve her overall symptoms. I think that ultimately the patient's can require medial compartment arthroplasty based on her symptoms. I did tell her that if the other compartments are not within normal limits then she may need to be converted to a total knee. At this point time I am happy to proceed with a knee arthroscopy if she desired again I am not sure if this can give her significant relief. At this point patient would like to proceed with unicompartmental arthroplasty versus possible total knee. She understands risks and benefits to include damage to nerves muscles arteries veins, DVT PE infection or and need for revision procedure. Go ahead and get her counseling consented for right unicompartmental Orthoplast. Reviewed the pre-operative plans with the patient. Risks and benefits of the procedure were fully explained, including but not limited to infection, neurovascular injury, continued pain, arthritis, stiffness, need for further surgery, re-injury, DVT, PE, general risks of anesthesia, and loss of limb or life. The patient understands all the risks and does wish to proceed with written consent. Coding Level of Care Code Off vis,est,level 4 Diagnoses Other internal derangements of right knee M23.8X1 Chronic pain of right knee M25.561; G89.29 Chronicity: chronic Derangement of medial meniscus of right knee M23.303 02/11/18 1540 <Electronically signed by Calvin Alanis DO> Date Calvin Alanis DO Cosigner Signature: Date (if applicable) CC: Raquel Mauro Start: 02-05-2018 End: 02-05-2018 Lower Ext Joint Only (Routine) Comments: See Note; NOTES: [facility] Imaging Services [address] [place] [id number] Lower Ext Joint Only (Routine) MR#: [id number] Acct: [id number] Name: OMAIRA OLIVER Rep #: [id number] : 1940 F 77 From: Estephania Zuniga MD PCP: Raquel Mauro DO Status: REG CLI Study: Lower Ext Joint Only (Routine) Date of Exam: 02/05/18 Exam# [id number] Ordering Dr: Calvin Alanis DO STUDY: MRI RIGHT KNEE REASON FOR EXAM: Female, 77 years old. Right-sided knee pain. TECHNIQUE: Standardized fat and water weighted pulse sequences were obtained in all 3 orthogonal planes. COMPARISON: None. 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 There is signal heterogeneity within the articular cartilage of the medial femorotibial compartment with thinning of the articular cartilage. Normal medial femoral condyle and tibial plateau. There is fluid distension of the tibial collateral bursa, consistent with an associated bursitis. Normal distal semimembranosus, gracilis and semitendinosus tendons. Normal lateral meniscus. There is diffuse, greater than 50% thickness articular cartilage loss of the lateral femorotibial compartment. Normal lateral femoral condyle and tibial plateau. Normal proximal tibiofibular articulation. Normal lateral collateral ( fibular ) ligament. Normal popliteus tendon. Normal biceps femoris tendon. There may be some myxoid degeneration of the distal portion of the anterior cruciate ligament. The anterior cruciate ligament appears intact. Normal posterior cruciate ligament (PCL). Normal congruent patellofemoral articulation. There is signal heterogeneity within the articular cartilage of the patellofemoral compartment with moderate thinning of the articular cartilage surface. Normal medial and lateral patellar retinaculum. Normal quadriceps tendon. Normal patellar tendon. Normal Hoffa's fat pad. There is a small volume joint effusion. There is a Foley's cyst measuring approximately 6 x 2.3 x 1.1 cm in size. There is soft tissue edema adjacent to the patellar tendon. This may be the result of patellar tendinopathy or soft tissue contusion. The otherwise visualized osseous structures are unremarkable. MRI/Lower Ext Joint Only (Routine) IMPRESSION: 1. 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 2. Small joint effusion. 3. Foley's cyst. 4. Inflammation of the medial collateral ligament with possible bursitis. 5. Apparent sequela of soft tissue contusion of the anterior knee. Electronically Signed: Estephania Zuniga MD at 8:59 EDT , Service support , CC: Raquel Mauro DO; Calvin Alanis DO Dimmer Board Operator: Signed Raquel Mauro Start: 01-18-2018 End: 01-18-2018 Orthopedic Visit Report Comments: See Note; NOTES: [facility] Orthopaedics AND Sports Medicine [address] [place] [address] OFFICE VISIT Date of Service: 01/16/18 MR#: [id number] Acct: [id number] Name: OMAIRA OLIVER Rep #: [id number] : 1940 Provider: Calvin Alanis DO Age/Sex: 77/F Location: [facility] Status: Signed Intake Intake Visit Reasons: RIGHT KNEE Is patient in pain?: Yes Pain scale (1-10): 3 Allergies hydrochlorothiazide Adverse Reaction (Verified 01/16/18 12:53) Other morphine Adverse Reaction (Verified 01/16/18 12:53) Other nitrofurantoin [From Macrobid] Adverse Reaction (Verified 01/16/18 12:53) Other [facility] Adverse Reaction (Uncoded 10/04/17 09:55) Other Medications Aspirin E.C. [Ecotrin] 81 mg PO DAILY@0800 12/25/16 [History Confirmed 01/16/18] Calcium Carb/Vitamin D3/Vit K1 [Viactiv Soft Chew] 1 ea PO BID 12/25/16 [History Confirmed 01/16/18] Cholecalciferol (Vitamin D3) [Vitamin D3] 5,000 unit PO DAILY 12/25/16 [History Confirmed 01/16/18] Polyvinyl Alcohol/Povidone/Pf [Refresh Classic Eye Drops] 1 ea OP DAILY PRN 12/25/16 [History Confirmed 01/16/18] Zolpidem Tartrate [Ambien] 5 mg PO QHS PRN PRN 12/25/16 [History Confirmed 01/16/18] Amlodipine [Norvasc] 5 mg PO DAILY 08/28/17 [History Confirmed 01/16/18] Aspirin/Acetaminophen/Caffein e [Excedrin Extra Strength Caplet] 2 ea PO PRN PRN 10/04/17 [History Confirmed 01/16/18] naproxen sodium 220 mg capsule 220 mg PO Q12H 01/16/18 [History Confirmed 01/16/18] PFSH Medical History Basal cell carcinoma (Acute) Mitral insufficiency (Acute) Hypertension (Chronic) Surgical History H/O: hysterectomy (Inactive) History of tonsillectomy (Inactive) Hx of cholecystectomy (Inactive) h/o left carpal tunnel release (Inactive) spinal fusion (Inactive) Social History Smoking Status: Never smoker HPI RIGHT KNEE: Details: OMAIRA OLIVER is a 77 year old F here today for right knee. She complains of constant medial knee pain. She has finished 8 weeks worth of PT which helped but the pain is still. She have been doing HEP daily for the past 2 weeks. She states the pain radiates slightly down her leg. She does feel the pain is a little better. By evening time the knee does swell. Denies tingling/numbness. Denies locking or giving out. She continues to take Aleve or Excedrin for pain which does help. ROS Const Reports system reviewed and no additional complaints, except as docu Eyes Reports system reviewed and no additional complaints, except as docu ENT Reports system reviewed and no additional complaints, except as docu Card Reports system reviewed and no additional complaints, except as docu Resp Reports system reviewed and no additional complaints, except as docu GI Reports system reviewed and no additional complaints, except as docu Reports system reviewed and no additional complaints, except as docu Musc Reports joint pain, Reports joint swelling Skin/Breast Reports system reviewed and no additional complaints, except as docu Neuro Yes system reviewed and no additional complaints, except as docu Psych Reports system reviewed and no additional complaints, except as docu Endo Reports system reviewed and no additional complaints, except as docu Jonas/Lymph Reports system reviewed and no additional complaints, except as docu Aller/Immun Reports system reviewed and no additional complaints, except as docu Ortho Exam Right Knee Contralateral Normal: Yes Swelling: Yes Homans Sign: No 1+: Effusion Knee ROM: Yes ROM-Extension -20 to 0, Yes ROM-Flexion 0-140, Yes ROM-Passive Extension -10 to 0, Yes ROM-Passive Flexion 0-140 Examination: Yes Med jt line tenderness, Yes Pain with flexion, Yes Pain with extention, Yes TTP inf pole patella Quad Atrophy: No Stability: NML: Anterior Drawer, NML: Dane, NML: Posterior Drawer, NML: Valgus 0, NML: Valgus 30, NML: Varus 0, NML: Varus 30, NML: Dial 90, NML: Dial 30 Popliteal Adenopathy: No Patella Translation: 1 Apprehension with Lateral Translation: No Patellar Tilt Normal: Yes Patella Grind: No Left Knee Skin/Wound: Yes CDI Contralateral Normal: Yes Swelling: No Homans Sign: No Quad Atrophy: No Stability: NML: Anterior Drawer, NML: Dane, NML: Posterior Drawer, NML: Valgus 0, NML: Valgus 30, NML: Varus 0, NML: Varus 30, NML: Dial 90, NML: Dial 30 Patella Translation: 1 Apprehension with Lateral Translation: No Patellar Tilt Normal: Yes Patella Grind: No Assessment AND Plan Problems 1. Other internal derangements of right knee M23.8X1 2. Chronic pain of right knee M25.561; G89.29 Plan Assessment: Right knee internal derangement right knee pain and possible medial meniscus pathology. Plan: At this point time the patient is failed conservative measures to include NSAIDs active modifications physical therapy and injections. Recommendation at this point time is for an MRI of the right knee second of the fact that her radiographic knees look very good. Always concerned that we may be missing some underlying chondral injury and/or early avascular necrosis is not well delineated by plain radiographs. Follow-up after MRI complet y Medications Discontinued: hydrocodone-acetaminophen 5-325 mg Discontinued Reason: Pt 1 tab PO Q6H PRN PRN Pain no longer taking Coding Level of Care Code Off vis,est,level 3 Diagnoses Other internal derangements of right knee M23.8X1 Chronic pain of right knee M25.561; G89.29 Chronicity: chronic 01/18/18 1602 <Electronically signed by Calvin Alanis DO> Date Calvin Alanis DO Cosigner Signature: Date (if applicable) CC: Raquel Mauro Start: 12-10-2017 End: 12-10-2017 Orthopedic Visit Report Comments: See Note; NOTES: [facility] Orthopaedics AND Sports Medicine [address] [place] [address] OFFICE VISIT Date of Service: 12/06/17 MR#: [id number] Acct: [id number] Name: OMAIRA OLIVER Rep #: [id number] : 1940 Provider: Calvin Alanis DO Age/Sex: 77/F Location: [facility] [place] Status: Signed Intake Intake Visit Reasons: right knee Is patient in pain?: No Allergies hydrochlorothiazide Adverse Reaction (Verified 12/06/17 09:38) Other morphine Adverse Reaction (Verified 12/06/17 09:38) Other nitrofurantoin [From Macrobid] Adverse Reaction (Verified 12/06/17 09:38) Other [facility] Adverse Reaction (Uncoded 10/04/17 09:55) Other Medications Aspirin E.C. [Ecotrin] 81 mg PO DAILY@0800 12/25/16 [History Confirmed 12/06/17] Calcium Carb/Vitamin D3/Vit K1 [Viactiv Soft Chew] 1 ea PO BID 12/25/16 [History Confirmed 12/06/17] Cholecalciferol (Vitamin D3) [Vitamin D3] 5,000 unit PO DAILY 12/25/16 [History Confirmed 12/06/17] Polyvinyl Alcohol/Povidone/Pf [Refresh Classic Eye Drops] 1 ea OP DAILY PRN 12/25/16 [History Confirmed 12/06/17] Zolpidem Tartrate [Ambien] 5 mg PO QHS PRN PRN 12/25/16 [History Confirmed 12/06/17] Amlodipine [Norvasc] 5 mg PO DAILY 08/28/17 [History Confirmed 12/06/17] Aspirin/Acetaminophen/Caffein e [Excedrin Extra Strength Caplet] 2 ea PO PRN PRN 10/04/17 [History Confirmed 12/06/17] Hydrocodone Bitart/Apap 5-325 [[place] 5MG-325MG] 1 tab PO Q6H PRN PRN #5 tab 10/12/17 [Rx Confirmed 12/06/17] PFSH Medical History Basal cell carcinoma (Acute) Mitral insufficiency (Acute) Hypertension (Chronic) Surgical History H/O: hysterectomy (Inactive) History of tonsillectomy (Inactive) Hx of cholecystectomy (Inactive) h/o left carpal tunnel release (Inactive) spinal fusion (Inactive) Social History Smoking Status: Never smoker HPI right knee: Chief Complaint: right knee Details: OMAIRA OLIVER is a 77 year old F here today for a followup on her right knee. She states that she feels great and has no pain. Patient had an injection on 10/25/17 which she had a reaction to the injection. Patient notes that she has a sensativity to many medications. Patient is unsure if her reaction was due to dehydration but she contacted her PCP. She has also completed physical therapy which was helpful. Denies numbness, tingling or other associated symptoms. ROS Const Reports system reviewed and no additional complaints, except as docu Eyes Reports system reviewed and no additional complaints, except as docu ENT Reports system reviewed and no additional complaints, except as docu Card Reports system reviewed and no additional complaints, except as docu Resp Reports system reviewed and no additional complaints, except as docu GI Reports system reviewed and no additional complaints, except as docu Reports system reviewed and no additional complaints, except as docu Skin/Breast Reports system reviewed and no additional complaints, except as docu Neuro Yes system reviewed and no additional complaints, except as docu Psych Reports system reviewed and no additional complaints, except as docu Endo Reports system reviewed and no additional complaints, except as docu Ortho Exam Right Knee Skin/Wound: Yes CDI Contralateral Normal: Yes Swelling: No Homans Sign: No Knee ROM: Yes ROM-Extension -20 to 0, Yes ROM-Passive Flexion 0-140, Yes ROM-Flexion 0-140, Yes ROM-Passive Extension -10 to 0 Quad Atrophy: No Stability: NML: Anterior Drawer, NML: Dane, NML: Posterior Drawer, NML: Valgus 0, NML: Valgus 30, NML: Varus 0, NML: Varus 30, NML: Dial 90, NML: Dial 30 Popliteal Adenopathy: No Patella Translation: 1 Apprehension with Lateral Translation: No Patellar Tilt Normal: Yes Patella Grind: No KNEE: Alert and oriented 3 no distress with eye contact affect. Otherwise intact in the L1 S1 distributions. She has a nonantalgic gait today gross motor function 5 out of 5. Nontender to palpation currently across the medial joint line of the pes bursa. No signs of knee effusion. Range of motion looks good. Left Knee Patella Translation: 1 Assessment AND Plan Problems 1. Chronic pain of right knee M25.561; G89.29 2. Other internal derangements of right knee M23.8X1 Plan Assessment: Right knee pain right knee internal derangement right knee peds bursitis Plan: This point time patient is involving the right knee injection. This point time is somewhat her symptoms are intra-articular related to rise and extra-articular. Continue with physical therapy and strengthening and see the patient back at this point time on a as needed basis. Told patient that if she needs another injection she can go to 3 months from the initial. This point time patient agrees with plan. Any major issues return. 12/10/17 0743 <Electronically signed by Calvin Alanis DO> Date Calvin Alanis DO Cosigner Signature: Date (if applicable) CC: Raquel Mauro Start: 11-23-2017 End: 11-23-2017 PT D/C Summary (1) Comments: See Note; NOTES: [facility] Physical Therapy [facility] [address] [place], [place] [id number] Fax REHABILITATION SERVICES DISCHARGE SUMMARY MR#: [id number] Acct: [id number] Name: OMAIRA OLIVER Rep #: [id number] : 1940 77 From: Sherif Richter PT, ATC Referring Dr.: Calvin Alanis DO Status: REG RCR Insurance: [employer] MCR HP - PT D/C Summary It has been my pleasure to treat OMAIRA OLIVER under orders from Calvin Alanis DO, for the diagnosis of R knee pain for a total of 8 visit(s). Discharge Date: Please see the following information for a summary of their discharge status. - Subjective Subjective: Pt feels ready for discharge - Pain R knee Pain Intensity (Out of 10): 0 - Objective Objective/Function: R knee pain 0/10. R knee ROM: 0-125. R knee strength 5/5 throughout. Pt is I with HEP. Rx goals achieved - Goals Goal 1:: Decrease R knee pain x 50% to aid with IADL's Goal Progress: Goal Met Goal 2:: Increase R knee strength x 1 grade to aid with stair negotiation Goal Progress: Goal Met Goal 3:: Increase R knee ROM x 5-10 degrees to aid with stair negotiation Goal Progress: Goal Met Goal 4:: I with HEP Goal Progress: Goal Met - Plan Plan: Discharge - D/C Information If there are questions or concerns regarding this patient's physical therapy, please feel free to call me at [phone]. Thank you for the referral of this patient. Sincerely, Sherif Richter PT, <Electronically signed by Sherif Richter PT, ATC> 11/23/17 1018 CC: Raquel Mauro DO; Calvin Alanis DO [facility] Signed Raquel Mauro Start: 10-29-2017 End: 10-29-2017 Inital Evaluation (1) - PT Comments: See Note; NOTES: [facility] Physical Therapy [address] [place] [address] Fax REHABILITATION SERVICES INITIAL EVALUATION MR#: [id number] Acct: [id number] Name: OMAIRA OLIVER Rep #: [id number] : 1940 77 From: Sherif Richter PT, ATC Referring DrTone: Calvin Alanis DO Status: REG RCR Insurance: [facility] Patient's Visit Information OMAIRA OLIVER is a 77 year old F referred to Physical Therapy by Calvin Alanis DO with a diagnosis of R knee pain. Date of Evaluation: 10/29/17 Physical Therapist: Sherif Richter, PT, - Visit Plan Frequency: 2-3x /Week Duration: 4-6 Weeks Plan: R knee stretching and strengthening, core stab ex's, balance and proprio, bike, hep, and US - Subjective Subjective: Pt reports she has had R knee pain for greater than 2 weeks. Pt notes her pain had an insidious onset in nature. Pt reports she has had R knee pain in the past, and was treated by a chiropractor which releived her pain. Pt reports her pain in inferior in relation to her patella. Pt reports she has pain when she first stands after sitting for a long period of time. Pt reports she had xrays, which revealed no OA. Pt reports she had sleep diff secondary to pain, but not anymore. Pt reports she has a lot of diff with trying to negoatiate stairs secondary to pain. No T or N in R LE. 1/10 at rest, 10/10 at worst (normal everyday activity). Pt reports she has had a cortisone injection last week which has made a huge difference. - Pain R knee Pain Intensity (Out of 10): 0 Pain Intensity Range: 10 - Objective Neuro: B LE sensation is WNL to light touch. B achilles reflex= 2/3. Girth at joint line: B knees 37 cm. ROM: L knee 0-130, R knee 0-6-120. MMT: L knee 5/5 throughout. R knee flex= 4/5, ext= 4-/5 and painful. Special testing: No pos tests. Palpation: Pain directly over the pes anserine bursa of R knee - Goals Goal 1:: Decrease R knee pain x 50% to aid with IADL's Goal Time Frame: 4-6 Weeks Goal 2:: Increase R knee strength x 1 grade to aid with stair negotiation Goal Time Frame: 4-6 Weeks Goal 3:: Increase R knee ROM x 5-10 degrees to aid with stair negotiation Goal Time Frame: 4-6 Weeks Goal 4:: I with HEP Goal Time Frame: 4-6 Weeks - Rehabilitation Potential Physical Therapy Diagnosis: R knee pain, weakness, and limited mobility secondary to pes anserine bursitis Rehabilitation Potential: Good - Anticipated Interventions Patient/Client Instruction: Educate patient on: Condition, Plan of Care For the Purpose of:: To improve self management Therapeutic Exercise to Include: Strength training, Endurance training, Balance training, Flexibilty training, Dynamic Lumbar Stabilization For the Purpose of:: To decrease pain, To increase ROM, To improve muscle performance and motor function Ultrasound (thermal/non thermal): Yes - thermal For the Purpose of:: To decrease pain Thank you for the opportunity to evaluate your patient. For Medicare and Medicare HMO plans, please review the plan of care and approve it. It will need to be FAXED BACK to us at [phone] for Medicare purposes. Please let me know if there are questions or concerns regarding this plan of care. Physician Signature: _Date: <Electronically signed by Sherif Richter PT, ATC> 10/29/17 1018 CC: Raquel Mauro DO; Calvin Alanis DO [facility] Signed For Medicare only, by signing this I certify the plan of care. Physicians Signature Date Raquel Mauro Start: 10-25-2017 End: 10-27-2017 Knee 4 or More Views Comments: See Note; NOTES: [facility] Imaging Services [address] [place] [address] Knee 4 or More Views MR#: [id number] Acct: [id number] Name: OMAIRA OLIVER Rep #: [id number] : 1940 F 77 From: Salvador Hodge DO PCP: Raquel Mauro DO Status: REG CLI Study: Knee 4 or More Views Date of Exam: 10/25/17 Exam# [id number] Ordering Dr: Calvin Alanis DO STUDY: X-RAY - LEFT KNEE REASON FOR EXAM: Female, 77 years old. Knee pain TECHNIQUE: 4 view(s) of the knee. Including weight-bearing views COMPARISON: None. FINDINGS: Normal visualized distal femur. Normal visualized proximal tibia and fibula. Normal proximal tibiofibular articulation. Normal medial femorotibial compartment. Normal lateral femorotibial compartment. 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 There is no demonstrated joint effusion. The soft tissue structures are unremarkable. RAD/Knee 4 or More Views IMPRESSION: Minimal degenerative change of the patellofemoral compartment. Joint spaces appear maintained Electronically Signed: Salvador Hodge DO at 8:10 EST Tel , Service support , CC: Raquel Mauro DO; Calvin Alanis DO Dimmer Board Operator: Signed Raquel Mauro Start: 10-13-2017 End: 10-13-2017 Discharge Instruction Comments: See Note; NOTES: [facility] Medical Records Department [address] [place] [address] Instructions for Home/Discharge Instructions 10/12/17 1009 MR#: [id number] Acct: [id number] Name: OMAIRA OLIVER Rep #: [id number] : 1940 77 From: Carlo Burch MD PCP: Raquel Mauro DO Status: DEP [facility] Discharge Diet: Light diet - advance as tolerated - if you have questions about your diet instructions, please talk to you doctor. Discharge Activity: May Not Drive - for 1 week or while taking narcotic pain medicine. May shower in (days): 1 Lifting Restrictions: 10 pounds Call your doctor if your incision/area has: Continuous Slow Oozing, Sudden Increased Bleeding, Increased Pain/ Swelling, Increased Redness, Foul Smelling Discharge Call your doctor if you observe: Fever of 101 or Higher Suture Line Care: Avoid Pulling/Pushing, Avoid Pinching/Bending Cleanse incision/area with: Keep Dressing Clean AND Dry Additional Dressing/Incision Instructions:: You should elevate your left hand to assist with swelling and comfort. Please keep clean and dry. No heavy lifting Allergies/Adverse Reactions: Allergies hydrochlorothiazide Adverse Reaction (Verified 10/04/17 09:55) Other DIZZINESS,NAUSEA morphine Adverse Reaction (Verified 10/04/17 09:56) Other NAUSEA, LIGHTHEADED, HOT nitrofurantoin [From Macrobid] Adverse Reaction (Verified 10/04/17 09:55) Other DIZZINESS,NAUSEA [facility] Adverse Reaction (Uncoded 10/04/17 09:55) Other BURNING,LESIONS Medications to take at Discharge Aspirin E.C. [Ecotrin] 81 mg PO DAILY@0800 12/25/16 Calcium Carb/Vitamin D3/Vit K1 [Viactiv Soft Chew Tablet] 1 each PO BID 12/25/16 Cholecalciferol (Vitamin D3) [Vitamin D3] 5,000 unit PO DAILY 12/25/16 Polyvinyl Alcohol/Povidone/Pf [Refresh Classic Eye Drops] 1 each OP DAILY PRN 12/25/16 Zolpidem Tartrate [Ambien (Generic)] 5 mg PO QHS PRN PRN 12/25/16 Amlodipine [Norvasc] 5 mg PO DAILY 08/28/17 Aspirin/Acetaminophen/Caffein e [Excedrin Extra Strength Caplet] 2 each PO PRN PRN 10/04/17 Primary Care Physician: Raquel Mauro DO [Primary Care Provider] - Please Follow Up With: Carlo Burch MD - [phone] When: Call to make an appointment to be seen on Wednesday 10/17. 10/13/17 0638 <Electronically signed by Carlo Burch MD> Date Carlo Burch MD CC: Raquel Roy Start: 10-12-2017 End: 10-12-2017 Operative Report Comments: See Note; NOTES: [facility] Medical Records Department [address] [facility] [place] [address] Operative Report 10/12/17 1046 MR#: [id number] Acct: [id number] Name: OMAIRA OLIVER Rep #: [id number] : 1940 77 From: Carlo Burch MD PCP: Raquel Mauro DO Status: REG SDC Y Location: [place] [address] Report of Operation Date of Procedure: 10/12/17 Pre-Operative Diagnosis: Left carpal tunnel syndrome Post-Operative Diagnosis: Same Surgery/Procedure Performed:: Left carpal tunnel release Description of Surgical Findings:: Amount and informed consent was obtained. The patient was taken to the operating place upon the table. She underwent Yardley block regional anesthesia the left upper extremity. Tourniquet pressure to 250 mmHg pressure for a total of 30 minutes. The left hand was sterilely prepped and draped. A curvilinear incision was made in the base of the left palm. Sharp dissection carried down through the substantiated. The palmar fascia was identified carefully in size. The course of the median nerve identified and protected. The palmar fascia was incised along the fourth ray to the mid palm. Good release was achieved. The sub-dermal tissues were approximated with interrupted 4-0 chromic. Skin edges approximated with simple sutures of 5-0 nylon. The carlos-incisional areas anesthetized with 1.5 cc of 0.5% Marcaine. Topical antibiotic ointment Telfa 4 x 4 soft roll Ralph wrap applied. Sponge instrument and needle counts were reported to the surgeon be correct. Blood loss was 0. No specimens no drains no complications. She was taken to the recovery area in satisfactory condition. Carlo Burch M.D., F.A.C.S. Type of Anesthesia:: Block,Yardley Anesthesiologist: Virginia Lam 10/12/17 1049 <Electronically signed by Carlo Burch MD> Date Carlo Burch MD CC: Raquel Mauro DO; Carlo Burch MD Signed Raquel Mauro Start: 10-05-2017 End: 10-05-2017 Carotid Duplex Ultrasound Comments: See Note; NOTES: [facility] Cardiovascular Services [address] [place] [address] Carotid Duplex Ultrasound 10/05/17 1056 MR#: [id number] Acct: [id number] Name: OMAIRA OLIVER Rep #: [id number] : 1940 77 From: Carlo Burch MD Attending Dr: Carlo Burch MD Status: REG CLI Ordering Dr: Carlo Burch MD Date: 10/05/17 Location: [facility] Sex: F C Admitted: Reason For Study: Carotid bruits Rt. Velocities/BP Lt. Velocities/BP Prox CCA 99.1/23.5 cm/sec. Prox CCA 83.3/20.9 cm/sec. Mid CCA 93.8/23.5 cm/sec. Mid CCA 111.0/25.8 cm/sec. Dist CCA 77.4/26.4 cm/sec. Dist CCA 100.0/30.5 cm/sec. Prox ICA 71.5/25.2 cm/sec. Prox ICA 54.3/13.8 cm/sec. Mid ICA 73.0/24.9 cm/sec. Mid ICA 71.7/27.5 cm/sec. Dist ICA 78.4/29.4 cm/sec. Dist ICA 74.9/23.4 cm/sec. Rt. ICA/CCA = .84. Lt. ICA/CCA = .67. Prox ECA 71.5/12.3 cm/sec. Prox ECA 65.1/12.9 cm/sec. Rt. Vert. 52.2/18.2 cm/sec. Lt. Vert. 52.1/18.0 cm/sec. Right Extracranial There is intimal thickening but no significant atherosclerotic plaque noted in the right common carotid artery. There is intimal thickening but no significant atherosclerotic plaque noted in the right internal carotid artery. There is no significant atherosclerotic plaque noted in the right external carotid artery. Antegrade flow is noted in the right vertebral artery. Left Extracranial There is intimal thickening but no significant atherosclerotic plaque noted in the left common carotid artery. There is no significant atherosclerotic plaque noted in the left internal carotid artery. There is no significant atherosclerotic plaque noted in the left external carotid artery. Antegrade flow is noted in the left vertebral artery. Procedure Carotid Duplex [address]. Exam performed in department. Interpretation Summary No significant plague bilateral extracranial internal carotids with <50% stenosis bilaterally. Normal flow bilateral external carotids Patent and antegrade vertebrals Ordering Physician: Carlo Burch Referring Physician: Raquel Mauro M.D. Performed By: Amanda Bergman RVT 10/05/17 1427 Date Carlo Burch MD CC: Raquel Mauro DO; Carlo Burch MD Date Dictated: 10/05/17 1056 Date Transcribed: 10/05/171426 Dimmer Board Operator: Signed Sakina Cason Work Phone: Start: 09-27-2017 End: 09-27-2017 Duplex scan extracranial art compl bi study Carlo Burch MD Work Phone: Start: 08-30-2017 End: 08-30-2017 Operative Report Comments: See Note; NOTES: [facility] Medical Records Department [address] [facility] [place] [address] Operative Report 08/30/17 0955 MR#: [id number] Acct: [id number] Name: OMAIRA OLIVER Rep #: [id number] : 1940 77 From: Hugh Valverde MD PCP: Raquel Mauro DO Status: REG SDC Y Location: [place] [address] Operative Report Date of Procedure: 08/30/17 Operative dictation on Omaira Oliver Preoperative diagnosis: Mucosal lesions left buccal region, 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 Inflammatory change left lateral tongue, and dry mouth symptoms. Postoperative diagnosis: Same with pathology pending Procedure: Multiple mucosal biopsies including left buccal region, left lower lip region, and left lateral tongue. Anesthesia: MAC local (Jaye Gabriel TOBACCO STEMMER Complications: None Details of procedure: The patient was transported to the operating room and placed on the OR table in the semi-recumbent position. After the administration of some intravenous sedation and relaxation the oral cavity was inspected. She was still alert enough to be totally cooperative throughout this procedure. Examination of the left buccal mucosal region revealed an erythematous yet weight is streaked area that might have the characteristics of lichen planus. This was an area to be selected for biopsy. Because of dry mouth symptoms we discussed lower lip biopsy to rule out Sjogren's. Lastly because of ongoing soreness of the tongue throughout and more so in the left lateral aspect we suggested mucosal biopsy of left lateral tongue as well. To begin we used a cottonoid pledget soaked in a topical Xylocaine phenylephrine mixture. A dental roll pledget was placed against the buccal mucosal area of the cheek as well as the lower lip region. Eventually this was also applied to the left lateral tongue. 1% Xylocaine was used to infiltrate the 3 areas to achieve deeper anesthesia. Thereafter #15 scalpel was used to make 3 small elliptical full mucosal thickness biopsies. The first was from the buccal region the second from the lower lip the third from the left lateral tongue. The mucosal defects after biopsy were closed with 5-0 chromic and the tongue defect was closed with 4-0 chromic. Overall bleeding was minor and insignificant. The mouth was irrigated with some saline and she was able to expectorate this and we suctioned the remainder clear. When hemostasis appeared secure the procedure was terminated. Specimens were sent to the pathology department for permanent section analysis. She was then transported to PACU and noted to be in satisfactory condition. Hugh Valverde MD 08/30/17 1003 <Electronically signed by Hugh Valverde MD> Date Hugh Valverde MD CC: Hugh Valverde MD; Raquel Mauro DO Signed Raquel Mauro Start: 08-30-2017 End: 08-30-2017 Discharge Instruction Comments: See Note; NOTES: [facility] Medical Records Department [address] [place] [address] Instructions for Home/Discharge Instructions 08/30/17922 MR#: [id number] Acct: [id number] Name: OMAIRA OLIVER Rep #: [id number] : 1940 77 From: Hugh Valverde MD PCP: Raquel Mauro DO Status: REG [facility] You will use the following diet at home:: No restrictions - liquids and soft diet for 2-3days Additional Activity Instructions:: tylenol or advil for discomfort. as per package instructions. Allergies/Adverse Reactions: Allergies hydrochlorothiazide Adverse Reaction (Verified 08/28/17 13:18) Other DIZZINESS,NAUSEA nitrofurantoin [From Macrobid] Adverse Reaction (Verified 08/28/17 13:18) Other DIZZINESS,NAUSEA [facility] Adverse Reaction (Uncoded 08/28/17 13:18) Other BURNING,LESIONS Medications to take at Discharge Aspirin E.C. [Ecotrin] 81 mg PO DAILY@0800 12/25/16 Aspirin/Acetaminophen/Caffein e [Excedrin Migraine Caplet] 1 each PO PRN PRN 12/25/16 Calcium Carb/Vitamin D3/Vit K1 [Viactiv Soft Chew Tablet] 1 each PO BID 12/25/16 Cholecalciferol (Vitamin D3) [Vitamin D3] 5,000 unit PO DAILY 12/25/16 Naproxen Sodium [Aleve] 220 mg PO Q12H PRN PRN 12/25/16 Polyvinyl Alcohol/Povidone/Pf [Refresh Classic Eye Drops] 1 each OP DAILY PRN 12/25/16 Zolpidem Tartrate [Ambien (Generic)] 5 mg PO QHS PRN PRN 12/25/16 Amlodipine [Norvasc] 5 mg PO DAILY 08/28/17 Primary Care Physician: Raquel Mauro DO [Primary Care Provider] - Please Follow Up With: Hugh Valverde - follow up next week, call for appointment. 08/30/17924 <Electronically signed by Hugh Valverde MD> Date Hugh Valverde MD CC: Raquel Roy Start: 04-10-2017 End: 04-10-2017 Dexa Bone Density Study (HP) Comments: See Note; NOTES: [facility] Imaging Services [address] [place] [address] Verdana 4d Dexa Bone Density Study () MR#: [id number] Acct: [id number] Name: OMAIRA OLIVER Rep #: [id number] : 1940 F 76 From: Ian Bhatia MD PCP: Raquel Mauro DO Status: REG CLI Study: Dexa Bone Density Study () Date of Exam: 04/10/17 Exam# [id number] Ordering Dr: Raquel Mauro DO STUDY: DUAL ENERGY X-RAY ABSORPTIOMETRY / DXA REASON FOR EXAM: Female, 76 years old. The patient is postmenopausal. Loss of height. TECHNIQUE: Bone Mineral Density (BMD) measurements of lumbar spine and bilateral hips were obtained. COMPARISON: None. FINDINGS: Lumbar Spine (L1-L4): g/cm2 (1.435) / T-score (2.2) / Z-score (4.0) Findings are suggestive of normal bone density with a low fracture risk. Left Femur Total: g/cm2 (0.944) / T-score (-0.5) / Z-score (1.2) Left Femoral Neck: g/cm2 (0.802) / T-score (-1.7) / Z-score (0.2) Right Femur Total: g/cm2 (0.941) / T-score (-0.5) / Z-score (1.2) Right Femoral Neck: g/cm2 (0.807) / T-score (-1.7) / Z-score (0.2) HPBD/Dexa Bone Density Study (HP) IMPRESSION: The patient is considered osteopenic as outlined below according to World Zac Organization (WHO) criteria with a moderate fracture risk. Reference Information: The T-score is the number of standard deviations above or below the standard which is normal for young adults at their peak bone mineral density. The World Health Organization (WHO) interprets the T-scores as follows: Above -1 Normal bone density Between -1 and -2.5 Osteopenia Equal to / or below -2.5 Osteoporosis As a practical clinical guideline, osteopenia may be graded as follows: Mild -1 through -1.5 Moderate -1.6 through -2.0 Severe -2.1 through -2.4 The Z-score is the number of standard deviations above or below age-matched controls. A Z-score of less than -1.5 would be considered abnormal. References: 1. NIH Osteoporosis and Related Bone Diseases http://www.osteo.org 2. International Society for Clinical Densitometry http://www.iscd.org 3. National Osteoporosis Foundation http://www.nof.org Electronically Signed: Ian Bhatia MD at 10:57 EDT Tel [phone], Service support , CC: Raquel Mauro DO Dimmer Board Operator: Signed Raquel Mauro Work Phone: Start: 04-10-2017 End: 04-12-2017 SCREENING MAMM (CAD), BILAT Comments: See Note; NOTES: [facility] Imaging Services [address] [place] [address] Verdana 4d SCREENING MAMM (CAD), BILAT MR#: [id number] Acct: [id number] Name: OMAIRA OLIVER Rep #: [id number] : 1940 F 76 From: Ian Bhatia MD PCP: Raquel Mauro DO Status: [facility] CLI Study: SCREENING MAMM (CAD), BILAT Date of Exam: 04/10/17 Exam# [id number] Ordering Dr: Raquel Mauro DO MAMMOGRAPHY - BILATERAL SCREENING REASON FOR EXAM: Female, 76 years old. Routine annual screening examination. PERTINENT HISTORY: Non-contributory. TECHNIQUE: Digital bilateral breast yeison (3D mammographic acquisition) in the CC and MLO projections. 2-D mediolateral oblique (MLO) and craniocaudad (CC) views of both breasts were obtained. CAD: Full Field Digital Mammography with Computer Added Detection was performed. COMPARISON: Comparison is made with prior outside examination dated January 18, 2016. FINDINGS: Breast Composition: The breasts are heterogeneously dense, which may obscure small masses. There are no dominant masses or suspicious calcifications. No other significant abnormalities are identified. There has been no significant change since the prior study. HPBI/SCREENING MAMM (CAD), BILAT IMPRESSION: Stable bilateral screening mammogram. Yearly follow-up mammogram recommended. (A) ASSESSMENT CATEGORY: BIRADS Category 1: Negative. A letter regarding these results will be sent to the patient by the facility within 30 days. Approximately 10% of breast cancers are not detected by mammography. A normal mammogram should not delay biopsy of a clinically suspicious abnormality. [id number] Electronically Signed: Ian Bhatia MD at 8:05 EDT Tel [phone], Service support , CC: Raquel Mauro DO Dimmer Board Operator: Signed Raquel Mauro Work Phone: Start: 02-21-2017 End: 02-21-2017 Follow Up Appt 6 months Casandra Storey PA-C Work Phone: Start: 02-21-2017 End: 02-21-2017 PFM Casandra Storey PA-C Work Phone: Start: 02-08-2017 End: 02-08-2017 OT D/C of Non Returning Pt Comments: See Note; NOTES: [facility] Occupational Therapy [facility] [address] [place] [address] Fax REHABILITATION SERVICES DISCHARGE SUMMARY MR#: [id number] Acct: [id number] Name: OMAIRA OLIVER Rep #: [id number] : 1940 76 From: Casandra Lopez Referring Dr.: Ari Rock Status: REG RCR Eval Date: Discharge Date: HP - Discharge Summary - Patient Information OMAIRA OLIVER was seen in my office for initial evaluation on 12/14/16. The following Plan of Care was established for this patient: Initial Frequency: Every Other Week Initial Duration: 4 Weeks - Anticipated Interventions Anticipated Interventions: Manual Lymph Drainage, Education re Life-long lymphedema Management, Education re Self-Bandaging Techniques, Education re Skin Care and Precautions, Education re Self Massage Techniques, Education re Correct Donning Tech,Care AND Wearing Sched Comp Garments This patient was last seen in our office 12/26/16. Pertinent comments regarding their Occupational therapy will appear below: pt was seen for 2 visits she has not scheduled any further apts. pt d/c due to non attendance. At this point I will be discontinuing this patient from occupational therapy. I would be happy to see this patient again in the future if found appropriate by the physician. Thank you! Casandra Lopez <Electronically signed by Casandra Lopez > 02/08/17 1229 CC: Ari Rock MK Signed Raquel Mauro Start: 01-23-2017 End: 01-24-2017 Nuclear Stress Test - Chemical Comments: See Note; NOTES: [facility] Imaging Services [address] [place] [address] Verdana 4d Nuclear Stress Test - Chemical MR#: [id number] Acct: [id number] Name: OMAIRA OLIVER Rep #: [id number] : 1940 76 From: Brad Holguin MD Primary Care: Raquel Mauro DO Status: REG CLI Ordering Dr: Brad Holguin MD Sex: F C DATE OF SERVICE: 01/23/2017 EXERCISE TOLERANCE TEST: The patient underwent pharmacologic (regadenoson) evaluation with a peak heart rate of 93 beats per minute (63% predicted maximum heart rate) and a peak blood pressure of 156/90 mmHg. The baseline ECG demonstrated normal sinus rhythm. The peak pharmacologic ECG demonstrated no obvious ECG changes. There were no obvious cardiac dysrhythmias pretest or during pharmacologic infusion with a rare PAC during recovery. There was no report of chest discomfort during pharmacologic infusion or recovery. The examination was discontinued secondary to completion of protocol. IMPRESSION: 1. Pharmacologic (regadenoson) evaluation. 2. Peak pharmacologic ECG with no obvious ECG changes. 3. Rare premature atrial contraction during recovery. 4. Nuclear images pending. MYOCARDIAL PERFUSION IMAGING STUDY: TECHNIQUE: The patient was injected with 11.0 mCi of Tc99m Cardiolite and subsequently rest SPECT Cardiolite nuclear imaging was obtained in the horizontal long, vertical long and short axes views. The patient underwent pharmacologic (regadenoson) evaluation with a peak heart rate of 93 beats per minute (63% predicted maximum heart rate) and a peak blood pressure of 156/90 mmHg. The patient was injected with 33.7 mCi of Tc99m Cardiolite and subsequently stress SPECT Cardiolite nuclear imaging was obtained in the horizontal long, vertical long and short axes views. A gated Cardiolite study at peak stress was obtained. INTERPRETATION: Rest and stress SPECT Cardiolite nuclear imaging status post realignment, normalization and attenuation correction demonstrates the appearance of relative uniform tracer uptake and myocardial perfusion appearing within normal limits. There is notation of end systolic thickening and brightening. The gated Cardiolite study demonstrates myocardial thickening and inward wall motion. The reported LVEF is 81%. There are no myocardial perfusion deficits noted on the rest or stress polar map images. IMPRESSION: 1. Rest and stress SPECT Cardiolite nuclear imaging demonstrate relative uniform tracer uptake and myocardial perfusion appearing within normal limits. 2. The gated Cardiolite study reports an LVEF of 81%. Brad Holguin MD T: NTS JOB: [id number] 01/24/17 0812 <Electronically signed by Brad Holguin MD> Date Brad Holguin MD CC: Raquel Mauro DO; Brad Holguin MD Date Dictated: 01/23/171654 Date Transcribed: 01/23/171654 Dimmer Board Operator: Signed Raquel Mauro Start: 01-16-2017 End: 01-16-2017 Renal Artery Duplex Comments: See Note; NOTES: [facility] Cardiovascular Services [address] [place] [address] Renal Artery Duplex Ultrasound 01/15/17 0853 MR#: [id number] Acct: [id number] Name: OMAIRA OLIVER Rep #: [id number] : 1940 76 From: Quang Perez MD Attending Dr: Brad Holguin MD Status: REG CLI Ordering Dr: Brad Holguin MD Date: 01/15/17 Location: [facility] Sex: F C Admitted: Reason For Study: HYPERTENSION Right Renal Artery Left Renal Artery Right renal artery ostium Left renal artery ostium 109.0 /32.8 123.0/29.2 RSV/EDV. PSV/EDV. Right renal artery proximal Left renal artery proximal PSV /EDV 137.0/32.8 PSV/EDV. 103.0/30.1 . Right renal artery mid 123.0/42.3 Left renal artery mid 116.0/ 39.2 PSV/EDV. PSV/EDV . Right renal artery distal Left renal artery distal 128.0 /40.1 126.0/34.0 PSV/EDV. PSV/EDV. Right RAR 1.7. Left RAR 1.6. Right Renal Parenchyma Left Renal Parenchyma Upper Pole Medula 27.5/8.6 PSV/EDV. Left upper pole medulla 41.6/ 14.4 Right upper pole medulla EDR .31 . PSV/EDV . Right upper pole medulla R.I. .69 . Left upper pole medulla EDR .35 . Upper Steve Cortx 20.8/6.7 PSV/EDV. Left upper pole medulla R.I. .65 . Right upper pole cortex EDR .32 . UP Cortex 25.1/8.9 PSV/EDV. Right upper pole cortex R.I. .68 . Left upper pole cortex EDR .35 . Right lower Pole medulla 41.9/13.1 Left upper pole cortex R.I. .65 . PSV/EDV . Left lower Pole medulla 23.5/ 8.3 Right lower pole medulla EDR .31 . PSV/EDV . Right lower pole medulla R.I. .69 . Left lower pole medulla EDR .35 . Lower Pole Cortex 28.4/9.5 PSV/EDV. Left lower pole medulla R.I. .65 . Right lower pole cortex EDR .33 . Lower Pole Cortx 22.0/6.7 PSV/ EDV. Right lower pole cortex R.I. .67 . Left lower pole cortex EDR .30 . Right Renal Hilar Left lower pole cortex R.I. .69 . Right Hilar avg 73.4/20.1 PSV/EDV. Left Renal Hilar Right hilar acceleration time 51 LT Hilar avg 56.5/17.3 PSV/EDV . m/sec. Left hilar acceleration time 44 Right Renal Dimensions m/sec. Right kidney size 9.4 cm . Left Renal Dimensions Right cortical dimension 1.5 cm . Left kidney size 10.0 cm . Left cortical dimension 1.5 cm . Aorta Proximal abdominal aorta 1.5 x 1.5 cm . Distal abdominal aorta 1.3 x 1.3 cm . Proximal abdominal aorta peak systolic velocity is 81.5 cm/sec . Distal abdominal aorta peak systolic velocity is 90.0 cm/sec . Interpretation Summary Dimensions of the intra-abdominal aorta appear normal, without evidence of aneurysmal dilatation. Renal artery velocities are bilaterally normal. Acceleration times are normal bilaterally. Renal- aortic ratios are also bilaterally normal. There is no evidence of hemodynamically significant renal artery stenosis on either side. Renovascular resistance appears to be bilaterally normal . Cortical dimensions are bilaterally normal. Kidneys appear normal in size bilaterally. Ordering Physician: Brad Holguin Referring Physician: Raquel Mauro M.D. Performed By: Amanda Bergman RVT 01/16/17821 Date Quang Perez MD CC: Raquel Mauro DO; Brad Holguin MD Date Dictated: 01/15/17852 Date Transcribed: 01/16/17821 Dimmer Board Operator: Signed Raquel Mauro Start: 01-15-2017 End: 01-15-2017 Chest PA and Lateral Comments: See Note; NOTES: [facility] Imaging Services [address] [place] [address] Verdana 4d Chest PA and Lateral MR#: [id number] Acct: [id number] Name: OMAIRA OLIVER Rep #: [id number] : 1940 F 76 From: Elvira Penn MD PCP: Raquel Mauro DO Status: REG CLI Study: Chest PA and Lateral Date of Exam: 01/15/17 Exam# [id number] Ordering Dr: Brad Holguin MD STUDY: X-RAY CHEST REASON FOR EXAM: Female, 76 years old. CHRONIC SOB AND HTN TECHNIQUE: Frontal and lateral views of the chest. COMPARISON: None. FINDINGS: There is degenerative spurring There is hyperinflation of the lungs consistent with chronic obstructive lung disease (COPD). Bilateral lung nodules are noted some are calcified and most likely represent granulomas the largest is in the lingula measures approximately 6 mm. There is no demonstrated pleural abnormality. Normal size heart. Normal mediastinum and maida. Normal visualized pulmonary arteries. Normal visualized aortic arch and descending thoracic aorta. There are diffuse degenerative changes of the visualized thoracic spine. There is degenerative osteoarthritis of the bilateral shoulders. There is no demonstrated abnormality of the visualized soft tissue structures of the upper abdomen. RAD/Chest PA and Lateral IMPRESSION: There is hyperinflation of the lungs consistent with chronic obstructive lung disease (COPD). Bilateral lung nodules are noted some are calcified and most likely represent granulomas the largest is in the lingula measures approximately 6 mm. Electronically Signed: Elvira Penn MD at 17:54 EST Tel , Service support [phone], CC: Raquel Mauro DO; Brad Holguin MD Dimmer Board Operator: Signed Raquel Mauro Start: 01-04-2017 End: 01-16-2017 Chest x-ray Brad Holguin MD Start: 01-04-2017 End: 01-04-2017 Ecg routine ecg w/least 12 lds w/i&r Brad Holguin MD Start: 01-04-2017 End: 01-04-2017 Follow Up Appt 6 weeks Brad Holguin MD Start: 01-04-2017 End: 01-19-2017 Follow Up BP Check Brad Holguin MD Start: 01-04-2017 End: 01-04-2017 MMM Brad Holguin MD Start: 01-04-2017 End: 01-24-2017 Nuclear stress test -Lexiscan Brad Holguin MD Start: 01-04-2017 End: 02-12-2017 Renal doppler Brad Holguin MD Start: 01-04-2017 End: 01-04-2017 Vascular Test/LEAS/UEAS Comments: See Note; NOTES: [facility] Cardiovascular Services [address] [facility] [place] [address] Verdana 4d Ankle Brachial Index MR#: [id number] Acct: [id number] Name: OMAIRA OLIVER Rep #: [id number] : 1940 76 From: Quang Perez MD Primary Care: Raquel Mauro DO Status: REG RCR Ordering Dr: Quang Perez MD Sex: F C DATE OF SERVICE: 01/01/2017 NONINVASIVE LOWER EXTREMITY ARTERIAL STUDY DATE OF STUDY: 01/01/2017 This is a 76-year-old female, who presents with history of hypertension and lower extremity edema. Suspecting the presence of atherosclerotic peripheral arterial occlusive disease, the patient was brought to the Noninvasive Vascular Laboratory at this time for the purpose of bilateral noninvasive lower extremity arterial assessment. Doppler signal assessment was used to evaluate the pulses at ankle level bilaterally. Posterior tibial and dorsalis pedis pulses were triphasic bilaterally. Segmental limb pressures were obtained bilaterally. The right ankle pressure, as determined by posterior tibial pulse, was measured at 231 mmHg. The right ankle pressure, as determined by dorsalis pedis pulse, was measured at 208 mmHg. The right digital pressure was measured at 174 mmHg. The left ankle pressure, as determined by posterior tibial pulse, was measured at 218 mmHg. The left ankle pressure, as determined by dorsalis pedis pulse, was measured at 196 mmHg. The left digital pressure was measured at 163 mmHg. Pulse-volume recordings were obtained bilaterally at ankle and digital levels. Waveform amplitudes appeared to be satisfactory bilaterally. Resting ankle-brachial indices were calculated bilaterally. The resting right ankle-brachial index was calculated to be 1.26. The resting left ankle-brachial index was calculated to be 1.19. Digital-brachial indices were calculated bilaterally. The right digital-brachial index was calculated to be 0.95. The left digital-brachial index was calculated to be 0.89. IMPRESSION: Based upon the findings of this resting noninvasive lower extremity arterial study, there is no evidence of significant atherosclerotic peripheral arterial occlusive disease in the lower extremities bilaterally. Triphasic waveforms were noted at ankle level bilaterally. Resting ankle-brachial indices were bilaterally normal. Digital-brachial indices were also normal bilaterally. In summary, this represents a normal resting noninvasive lower extremity arterial study bilaterally. Quang Perez MD T: NTS JOB: [id number] 01/04/17 1217 <Electronically signed by Quang Perez MD> Date Quang Perez MD CC: Rauqel Mauro DO; Quang Perez MD Date Dictated: 01/03/171702 Date Transcribed: 01/03/171702 Dimmer Board Operator: Signed Raquel Mauro Start: 01-01-2017 End: 01-01-2017 Venous Duplex Lower Extremity Comments: See Note; NOTES: [facility] Cardiovascular Services [address] [place] [address] Venous Duplex US - Talib Extrem 01/01/17 0800 MR#: [id number] Acct: [id number] Name: OMAIRA OLIVER Rep #: [id number] : 1940 76 From: Quang Perez MD Attending Dr: Quang Perez MD Status: REG RCR Ordering Dr: Qunag Perez MD Date: 01/01/17 Location: Sex: F C Admitted: Reason For Study: edema, pain RIGHT LEFT CFV is compressible, spontaneous, phasic, CFV is compressible, spontaneous, phasic , competent and demonstrates normal competent, and demonstrates normal augmentation. augmentation. FV is compressible, spontaneous, phasic, FV is compressible, spontaneous, phasic, competent and demonstrates normal competent and demonstrates normal augmentation. augmentation. POP V is compressible, spontaneous, phasic, POP V is compressible, spontaneous, phasic, competent and demonstrates normal competent and demonstrates normal augmentation. augmentation. T/P Trunk is compressible. T/P Trunk is compressible. PTV is compressible. PTV is compressible. RT PerV is compressible. LT PerV is compressible. S-F Junction is competent. S-F Junction is competent. GSV is incompetent throughout for greater GSV is incompetent throughout for greater than .5 seconds.. GSV measures .344 x .324 than .5 seconds. GSV measures .364 x .335 cm. cm. SSV is incompetent for greater than .5 SSV is incompetent for greater than .5 seconds. SSV measures .330 x .342 cm. seconds. SSV measures .410 x .399 cm. Lateral ASV at the junction is incompetent Lateral ASV at the junction is incompetent for greater than .5 seconds. ASV for greater than .5 seconds. ASV measures .35 cm. measures .493 x .476 cm. Branch of GSV just below the knee is Branch of GSV at the knee is incompetent for incompetent for greater than .5 seconds. greater than .5 seconds. Branch Branch measures .318 x .335 cm. measures .373 x .379 cm. Procedure Branch of GSV at the mid calf is incompetent Exam performed in department. for greater than .5 seconds. Branch The exam was diagnostic. measures .229 x .208 cm. Interpretation Summary Deep veins of the lower extremities are bilaterally patent and compressible segmentally. There is no evidence of deep vein thrombosis on either side. Valvular competence appears intact within the proximal deep venous systems bilaterally. The greater saphenous veins appear bilaterally patent and compressible segmentally. Sapheno-femoral junctions are bilaterally competent . Segmental valvular incompetence is noted within the greater saphenous veins bilaterally. Small saphenous veins are patent and incompetent bilaterally. Two incompetent accessory saphenous veins are identified in the right lower extremity. Three incompetent accessory saphenous veins are identified in the left lower extremity. Ordering Physician: Quang Perez Performed By: Zach Rosas RVT 01/01/172147 Date Quang Perez MD CC: Raquel Mauro DO; Quang Perez MD Date Dictated: 01/01/17 0800 Date Transcribed: 01/01/172147 Dimmer Board Operator: Signed Raquel Mauro Start: 12-26-2016 End: 12-26-2016 OT General Evaluation Comments: See Note; NOTES: [facility] Occupational [facility] [address] [place] [address] Fax REHABILITATION SERVICES INITIAL EVALUATION MR#: [id number] Acct: [id number] Name: OMAIRA OLIVER Rep #: [id number] : 1940 76 From: Casandra Lopez Referring Dr.: Imelda Gutiérrez DO Status: REG RCR Insurance: [employer] MCR Eval Date: Patient's Visit Information OMAIRA OLIVER is a 76 year old F, referred to Occupational Therapy by Imelda Gutiérrez DO,, with a diagnosis of BLE lymphedema. Date of Evaluation: 12/14/16 Occupational Therapist: Casandra Lopez - Subjective Subjective: Pt comes today for OT eval with dx. of Lymphedema. Pt states she has had swelling in her legs for years but the last year she has had difficulty with controlling the swelling. Pt states she has used compression hose in the past but they have caused pain and she has not been able to use them. Pt is unsure what compression class her current compression hose are. - Pain Blilateral legs 1 - Lymphedema (Circumferential Measure) Mid-foot: Right 23cm Left 23cm Ankle: Right 26cm Left 25cm Lower calf: Right 25cm left 26.5 Largest calf: Right 37.5cm left 38cm Below knee: Right 36cm Lefl 36cm - Lower Limb Functional Index Lower Extremity Functional Score: 47 - Goals Demonstrate a 20% reduction in edema by d/c: Yes Demonstrate adequate knowledge of self-bangaging by 1st week: Yes Demonstrate adequate knowledge of self-massage by 2nd week: Yes Demonstrate adequate knowledge skin care/prec by 2nd week: Yes Demonstrate adequate knowledge therapeutic exercises by d/c: Yes Select approp compression garment w/donning/care/wear by d/c: Yes Voice need to replace compression garment every 4-6mo by dc: Yes - Rehabilitation Rehabilitation Potential: Good - Anticipated Interventions Anticipated Interventions: Manual Lymph Drainage, Education re Life-long lymphedema Management, Education re Self-Bandaging Techniques, Education re Skin Care and Precautions, Education re Self Massage Techniques, Education re Correct Donning Tech,Care AND Wearing Sched Comp Garments - Visit Plan Frequency: Every Other Week Duration: 4 Weeks General Plan: Ed. pt on lymph system and need for compression devices/socks. ed. pt on lymph ex and other benificial ex as pool to assist in mtg. LE lymphedema. TEXT: Thank you for the opportunity to evaluate your patient. For Medicare and Medicare HMO plans, please review the plan of care and approve it. It will need to be FAXED BACK to us at [phone] for Medicare purposes. Please let me know if there are questions or concerns regarding this plan of care. Physician Signature: _Date: <Electronically signed by Casandra Lopez > 12/26/16 1724 CC: Imelda Gutiérrez DO; Ari Rock MK Signed For Medicare only, by signing this I certify the plan of care. Physicians Signature Date Raquel Mauro Start: 12-25-2016 End: 12-25-2016 Wound Ctr History AND Physical Comments: See Note; NOTES: [facility] [address] [place] [address] Wound Ctr History AND Physical 12/25/16 1539 MR#: [id number] Acct: [id number] Name: OMAIRA OLIVER Rep #: [id number] : 1940 76 From: Quang Perez MD PCP: Ari Rock Status: REG RCR Y Location: WC (1) Swelling of lower limb Status: Chronic Current Visit: Yes Code(s): M79.89 - OTHER SPECIFIED SOFT TISSUE DISORDERS (2) Edema leg Status: Chronic Current Visit: Yes Qualifiers: Laterality: bilateral Qualified Code(s): R60.0 - Localized edema Code(s): R60.0 - LOCALIZED EDEMA (3) Pain in both lower legs Status: Chronic Current Visit: Yes Code(s): M79.661 - PAIN IN RIGHT LOWER LEG; M79.662 - PAIN IN LEFT LOWER LEG (4) GERD (gastroesophageal reflux disease) Status: Chronic Current Visit: No Qualifiers: Esophagitis presence: without esophagitis Qualified Code(s): K21.9 - Gastro-esophageal reflux disease without esophagitis Code(s): K21.9 - GASTRO-ESOPHAGEAL REFLUX DISEASE WITHOUT ESOPHAGITIS (5) Hiatal hernia Status: Chronic Current Visit: No Code(s): K44.9 - DIAPHRAGMATIC HERNIA WITHOUT OBSTRUCTION OR GANGRENE (6) Sleep apnea Status: Chronic Current Visit: No Qualifiers: Sleep apnea type: S Code(s): G47.30 - SLEEP APNEA, UNSPECIFIED (7) Anemia Status: Chronic Current Visit: No Qualifiers: Anemia type: A Iron deficiency anemia type: I Vitamin B12 deficiency anemia type: V Folate deficiency anemia type: F Bone marrow failure anemia type: B Hemolytic anemia type: H Other causes of anemia: O Code(s): D64.9 - ANEMIA, UNSPECIFIED (8) Hyperlipemia Status: Chronic Current Visit: No Qualifiers: Hyperlipidemia type: H Code(s): E78.5 - HYPERLIPIDEMIA, UNSPECIFIED History of Present Illness Date of Service: 12/25/16 Chief Complaint: Bilateral lower extremity swelling, edema, and pain History of Wound: This is a 76-year-old female who has experienced swelling edema and lower extremity discomfort for over one year. The cause of her swelling is uncertain. She has noted swelling elsewhere in her body, the cause of which has not been determined. The patient sleeps on a flat surface at night. She claims to be active. She denies a sedentary lifestyle. She has no history of thrombophlebitis. 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 The patient has recently undergone laboratory studies which were drawn at her primary care office, [facility]. We will attempt to obtain copies of these results. An echocardiogram performed on December 22, 2016, reveals left ventricular systolic function to be normal, and an ejection fraction of 60%. Transmitral diastolic flow velocity suggests diastolic dysfunction. Pulmonary hypertension is suspected. Otherwise, mild aortic valve thickening, tricuspid valve insufficiency, and mitral valve insufficiency, and mitral valve thickening are noted. Past Medical History Past Medical History: Chronic Problems Edema leg (Chronic) Pain in both lower legs (Chronic) Swelling of lower limb (Chronic) Anemia (Chronic) GERD (gastroesophageal reflux disease) (Chronic) Hiatal hernia (Chronic) Hyperlipemia (Chronic) Sleep apnea (Chronic) Past Medical History: The patient's history is negative for myocardial infarction, congestive heart failure, cerebrovascular accident, diabetes mellitus, renal disease, pulmonary disease, and thyroid disease. Her history is positive for hiatal hernia, gastroesophageal reflux disease, hypertension, sleep apnea, anemia, hyperlipidemia, and basal cell carcinoma of the neck. Surgical History: - - Patient has a history of L4-5 spinal fusion, hysterectomy, tonsillectomy, and cholecystectomy. She is a AB 1 (spontaneous). Allergies/Adverse Reactions: Allergies No Known Allergies Allergy (Verified 12/25/16 14:45) Home Medications: Ambulatory Orders Medication Instructions Recorded Aspirin E.C. [Ecotrin] 81 mg PO DAILY@0800 12/25/16 Aspirin/Acetaminophen/Caffein e 1 each PO PRN 12/25/16 [Excedrin Migraine Caplet] Calcium Carb/Vitamin D3/Vit K1 1 each PO BID 12/25/16 [Viactiv Soft Chew Tablet] Carvedilol [Coreg] 6.25 mg PO DAILY 12/25/16 Carvedilol [Coreg] 12.5 mg PO QHS 12/25/16 Cholecalciferol (Vitamin D3) 5,000 unit PO DAILY 12/25/16 [Vitamin D3] Esomeprazole Mag Trihydrate 40 mg PO DAILY 12/25/16 [Nexium] Naproxen Sodium [Aleve] 220 mg PO Q12H PRN PRN 12/25/16 Polyvinyl Alcohol/Povidone/Pf 1 each OP DAILY PRN 12/25/16 [Refresh Classic Eye Drops] Zolpidem Tartrate [Ambien 5 mg PO QHS PRN PRN 12/25/16 (Generic)] - Family History Maternal - - Patient's father at the age of 90. The patient's mother at age of 97. Both lived long, healthy lives, having of old age. Social History: Patient is a . She lives alone. Claims to be active. She denies use of alcohol and tobacco products. Lives: Alone Smoking Status: Never smoker Tobacco Use: Non-smoker Alcohol: None Drugs: None Review of Systems Constitutional: Denies: Chills, Fever, Weight Change Eyes: Denies: Pain, Vision Change HEENT: Denies: Difficulty Hearing, Difficulty Swallowing, Sinus Congestion Cardiovascular: Denies: Chest Pain, Palpitations Respiratory: Denies: Cough, Shortness of Breath Gastrointestinal: Denies: Diarrhea, Nausea, Vomiting Genitourinary: Denies: Dysuria, Hematuria Endocrine: Denies: Heat/ Cold Intolerance, Polydipsia, Polyuria Hematologic/ Lymphatic: Denies: Easy Bruising, Easy Bleeding - Physical Exam Vital Signs Temp Pulse Resp BP Pulse Ox 96.7 F 100 16 114/79 12/25/16 14:15 12/25/16 14:15 12/25/16 14:15 12/25/16 14:15 General: Alert, Oriented x3, Cooperative, No apparent distress, Well developed, Well nourished HEENT: Atraumatic, PERRLA, EOMI, Normocephalic Oral: Moist Mucosa, No Gingival or Mucosal Lesions/ Ulcerations Neck: Supple, No JVD, Negative Carotid Bruits, No Nodes, No Nuchal Rigidity, Trachea Midline Lungs: Clear to auscultation, Normal air movement, No rhonchi, No wheeze, No rales Cardiovascular: Regular rate, Regular Rhythm, Normal S1, Normal S2, No murmurs Abdomen: Soft, Non Tender, Non-Distended Extremities: No clubbing, No cyanosis, - - Peripheral lower extremities are warm and well perfused. Scattered varicosities are noted laterally. There are no open ulcerations or wounds. There is no sign of cellulitis or infection. Moderate bilateral lower extremity edema and swelling is noted. Skin: No rashes, No breakdown Wound Measurements and Assessment WC - Nurse 1 - General Ulcer Measurement Start: 12/25/16 08:31 Freq: Status: Active Activity Type Activity Date Activity User E-Sign Co-Sign Detail Recorded Client Recorded Date Recorded By Document 12/25/16 14:15 [id number] 12/25/16 14:36 TM 12/25/16 14:15 Wound Center Nurse 1 [Edema Assessment] -Lower Limb Edema Present Yes -Right Calf (cm) 39.0 -Right Ankle (cm) 25.3 -Left Calf (cm) 40.0 -Left Ankle (cm) 25.8 WC - Nurse 2 - General Ulcer CM Notes Start: 12/25/16 08:31 Freq: Status: Active Activity Type Activity Date Activity User E-Sign Co-Sign Detail Recorded Client Recorded Date Recorded By Document 12/25/16 15:11 DV [id number] 12/25/16 15:13 DV 12/25/16 15:11 Wound Center Nurse 2 [Procedure/Treatment] Bilateral LE Edema -Time 15:12 -Correct Patient Yes -Correct Side, Site, Position Yes -Correct Procedure Yes -Procedure Performed No [See Physician Procedure note for Specifics] Pain Scale: 0-10 Numeric [Pain] -Is Patient Pain Free? Yes Neurological: Cranial nerves II-XII grossly intact, Neuro grossly intact Psych/Mental Status: Normal Affect, Appropriate, Alert and oriented to time, place, person, mood and affect Debridement Note Post-Debridement Measurements/Treatment WC - Nurse 2 - General Ulcer CM Notes Start: 12/25/16 08:31 Freq: Status: Active Activity Type Activity Date Activity User E-Sign Co-Sign Detail Recorded Client Recorded Date Recorded By Document 12/25/16 15:11 DV [id number] 12/25/16 15:13 DV 12/25/16 15:11 Wound Center Nurse 2 Bilateral LE Edema -Time 15:12 -Correct Patient Yes -Correct Side, Site, Position Yes -Correct Procedure Yes -Procedure Performed No Pain Scale: 0-10 Numeric Is Patient Pain Free? Yes No debridement was completed today Assessment/Plan Results of recent laboratory testing will be requested. We are to order a venous duplex examination of the lower extremities, and an abbreviated lower extremity arterial study, which will include ankle-brachial indices. Active Problems Edema leg (Chronic) Pain in both lower legs (Chronic) Swelling of lower limb (Chronic) Assessment: This is a 76-year-old female with more than 1 year history of swelling and edema and pain in both lower extremities. We are to obtain noninvasive vascular studies. Recent laboratory results will be requested. The patient is instructed to implement conservative treatment measures, which are to include leg elevation as much as possible, avoidance of vital standing and sitting, compression initially by means of SurePress, applied by the patient on a daily basis, active lifestyle, weight control measures, etc. The patient is to be instructed in the appropriate means by which to apply the SurePress compression wraps on a daily basis. The patient will return in 1 week for reassessment. At that time, it is anticipated that the results of her diagnostic studies will be available. Plan: As above. Conservative treatment measures are to be implemented. The patient will return in 1 week for reassessment. 12/25/16 1556 <Electronically signed by Quang Perez MD> Date Quang Perez MD CC: Signed Raquel Mauro Start: 12-22-2016 End: 12-22-2016 Echocardiogram Complete Comments: See Note; NOTES: [facility] Cardiovascular Services [address] [place] [address] Echo Complete 12/22/16 1018 MR#: [id number] Acct: [id number] Name: OMAIRA OLIVER Rep #: [id number] : 1940 76 From: Brad Holguin MD Attending Dr: Ari Rock Status: REG CLI Ordering Dr: Ari Rock Date: 12/22/16 Location: [facility] Sex: F C Admitted: Reason For Study: ABN EKG Procedure This was a 2D Doppler, Color Flow transthoracic echocardiogram. The exam was of adequate technical quality. Exam performed in department. Left Ventricle Normal LV size. Apical false tendon noted. Left ventricular systolic function is normal. The estimated ejection fraction is 60 %. No regional wall motion abnormalities noted. Right Ventricle Normal RV size. Normal systolic function. Atria The left atrium is mildly enlarged. The right atrium is mildly enlarged. No doppler evidence for ASD. Mitral Valve There is moderate mitral annular calcification. Extension of the mitral annular calcification onto the posterior mitral valve leaflet. Mild diffuse mitral valve thickening. Mild (1+) mitral valve insufficiency. Tricuspid Valve Normal tricuspid valve. Mild tricuspid valve insufficiency. Right ventricular systolic pressure estimated to be 39 mmHg. Aortic Valve Trisinus/trileaflet aortic valve. Mild diffuse aortic valve thickening. Pulmonic Valve The pulmonic valve is not well visualized. Great Vessels Normal sized aortic root. Pericardium/Pleural No pericardial effusion. MMode/2D Measurements & Calculations LVIDd: 4.2 cm IVSd: 1.1 cm LVOT diam: 1.8 cm LVIDs: 2.6 cm LVPWd: 1.1 cm LVOT area: 2.6 cm2 RVDd: 2.9 cm FS: 39.1 % Ao root diam: 3.1 cm LAV(MOD-bp): 67.8 ml LA A4 area: 20.4 cm2 LAV(MOD-bp) Indexed: 38.5 ml/m2 LAV(MOD-sp2): 72.1 ml LAV(MOD-sp4): 64.4 ml RA A4 area: 18.5 cm2 Time Measurements MV dec time: 0.22 sec Doppler Measurements & Calculations MV E max cierra: 94.7 cm/sec Lat Peak E' Cierra: 6.5 cm/sec Med Peak E' Cierra: 7.9 cm/sec MV A max cierra: 123.1 cm/sec E/E' lat: 14.5 E/E' med: 12.0 MV E/A: 0.77 MV V2 max: 129.8 cm/sec MV P1/2t max cierra: 110.7 cm/sec Ao V2 max: 150.7 cm/sec MV max P.7 mmHg MV P1/2t: 74.9 msec Ao max P.1 mmHg MV V2 mean: 89.8 cm/sec MV dec slope: 433.0 cm/sec2 DEONNA(V,D): 2.0 cm2 MV mean P.5 mmHg MVA(P1/2t): 2.9 cm2 MV V2 VTI: 43.0 cm LV V1 max: 115.9 cm/sec MR max cierra: 522.9 cm/sec TR max cierra: 244.6 cm/sec LV V1 max P.4 mmHg MR max P.4 mmHg TR max P.9 mmHg Interpretation Summary Left ventricular systolic function is normal. The estimated ejection fraction is 60 %. Apical false tendon noted. The left atrium is mildly enlarged. The right atrium is mildly enlarged. There is moderate mitral annular calcification. Extension of the mitral annular calcification onto the posterior mitral valve leaflet. Mild diffuse mitral valve thickening. Mild (1+) mitral valve insufficiency. Mild tricuspid valve insufficiency. Mild diffuse aortic valve thickening. Right ventricular systolic pressure estimated to be 39 mmHg c/w pulmonary hypertension. Transmitral diastolic flow velocities suggest diastolic dysfunction. Ordering Physician: Ari Rock Performed By: Kamille Em RDCS 12/22/16 1558 Date Brad Holguin MD CC: Ari Rock Date Dictated: 12/22/16 1018 Date Transcribed: 12/22/161557 Dimmer Board Operator: Char Rock Work Phone: Start: 05-03-2016 End: 05-03-2016 Echocardiogram Complete Comments: See Note; NOTES: [facility] Cardiovascular Services [address] [place] [address] Echo Complete 05/03/16 1018 MR#: [id number] Acct: [id number] Name: OMAIRA OLIVER Rep #: [id number] : 1940 75 From: Brad Holguin MD Attending Dr: Ari Rock Status: REG CLI Ordering Dr: Ari Rock Date: 05/03/16 Location: [facility] Sex: F C Admitted: Reason For Study: Edema Procedure This was a 2D Doppler, Color Flow transthoracic echocardiogram. The exam was of adequate technical quality. Exam performed in department. Left Ventricle Normal LV size. Apical false tendon noted. Left ventricular systolic function is normal. The estimated ejection fraction is 65 %. No regional wall motion abnormalities noted. Right Ventricle Normal RV size. Normal systolic function. Atria Normal left atrium. The right atrium is mildly enlarged. No doppler evidence for ASD. Mitral Valve There is mild mitral annular calcification. Extension of the mitral annular calcification onto the posterior mitral valve leaflet. Mild diffuse mitral valve thickening. Mild (1+) mitral valve insufficiency. Tricuspid Valve Normal tricuspid valve. Mild tricuspid valve insufficiency. Right ventricular systolic pressure estimated to be 29 mmHg. Aortic Valve Trisinus/trileaflet aortic valve. Mild diffuse aortic valve thickening. Pulmonic Valve The pulmonic valve is not well visualized. Trivial pulmonic valve insufficiency. Great Vessels Normal sized aortic root. Pericardium/Pleural No pericardial effusion. MMode/2D Measurements AND Calculations LVIDd: 5.0 cm IVSd: 1.00 cm Ao root diam: 3.4 cm LVIDs: 3.0 cm LVPWd: 0.98 cm LA dimension: 3.7 cm RVDd: 3.4 cm FS: 39.4 % LAV(MOD-bp): 54.3 ml LA A4 area: 17.7 cm2 RA A4 area: 16.8 cm2 LAV(MOD-bp) Indexed: 31.0 ml/m2 LAV(MOD-sp2): 67.2 ml LAV(MOD-sp4): 43.6 ml Doppler Measurements AND Calculations MV E max cierra: 93.9 cm/sec Lat Peak E' Cierra: 6.1 cm/sec Med Peak E' Cierra: 6.5 cm/sec MV A max cierra: 107.7 cm/sec E/E' lat: 15.3 E/E' med: 14.5 MV E/A: 0.87 Ao V2 max: 152.7 cm/sec LV V1 max: 124.7 cm/sec PA V2 max: 86.4 cm/sec Ao max P.3 mmHg LV V1 max P.2 mmHg Ao V2 mean: 107.4 cm/sec Ao mean P.1 mmHg Ao V2 VTI: 36.9 cm TR max cierra: 219.9 cm/sec TR max P.4 mmHg Interpretation Summary Left ventricular systolic function is normal. The estimated ejection fraction is 65 %. Apical false tendon noted. The right atrium is mildly enlarged. There is mild mitral annular calcification. Extension of the mitral annular calcification onto the posterior mitral valve leaflet. Mild diffuse mitral valve thickening. Mild (1+) mitral valve insufficiency. Mild tricuspid valve insufficiency. Mild diffuse aortic valve thickening. Trivial pulmonic valve insufficiency. Right ventricular systolic pressure estimated to be 29 mmHg. Ordering Physician: Ari Rock Referring Physician: Ari Rock Performed By: Rach Herrera, MICHELLE, RVT 05/03/16 1529 Date Brad Holguin MD CC: Ari Rock Date Dictated: 05/03/16 1018 Date Transcribed: 05/03/16 152 Dimmer Board Operator: Signed Raquel Mauro Work Phone: [facility] Plan of Treatment Date Care Activity Detail Author Start: 01-04-2023 Procedure Education [facility]; [facility] Work Phone: Start: 01-04-2023 Provider Instructions for Treatment [facility]; [facility] Work Phone: Start: 01-04-2023 Hemoglobin glycosylated a1c [facility]; [facility] Work Phone: Start: 01-04-2023 Glucose quantitative blood xcpt reagent strip [facility]; [facility] Work Phone: Start: 09-22-2022 Patient Education [facility]; [facility] Work Phone: Start: 09-22-2022 Procedure Education [facility]; [facility] Work Phone: Start: 09-22-2022 Provider Instructions for Treatment [facility]; [facility] Work Phone: Start: 11-30-2021 Procedure Education [facility]; [facility] Work Phone: Start: 11-30-2021 Provider Instructions for Treatment [facility]; [facility] Work Phone: Start: 11-29-2021 Iaadiadoo influenza [facility]; [facility] Work Phone: Start: 06-14-2020 Provider Instructions for Treatment [facility] Work Phone: Start: 04-21-2020 Procedure Education [facility] Work Phone: Start: 04-21-2020 Provider Instructions for Treatment [facility] Work Phone: Start: 04-21-2020 Cobalamin (Vitamin B12) [Mass/Vol] VITAMIN B-12 (CYANOCOBALAMIN) (27691) [facility] Work Phone: Start: 04-21-2020 Cyanocobalamin vitamin b-12 [facility]; [facility] Work Phone: Start: 02-23-2020 Hepatic function panel [facility] Work Phone: Start: 12-19-2019 Procedure Education [facility] Work Phone: Start: 12-19-2019 Provider Instructions for Treatment [facility] Work Phone: Start: 10-09-2019 Provider Instructions for Treatment [facility] Work Phone: Start: 10-09-2019 25 hydroxy includes fractions if performed [facility] Work Phone: Start: 10-09-2019 Lipoprotein blood lokesh numbers & subclasses [facility] Work Phone: Start: 09-24-2019 Assay of folic acid serum FOLIC ACID SERUM (35502) [facility] Work Phone: Start: 09-24-2019 INR Coag (Bld) [Relative time] Soluble Transferrin Receptor (42913) [facility] Work Phone: Start: 09-24-2019 Protein electrophoretic fractj&quantj serum SPEP (67913) [facility] Work Phone: Start: 09-24-2019 Protein total xcpt refractometry urine UPEP (72655) [facility] Work Phone: Start: 09-24-2019 Blood occult fecal hgb deter ia qual feces 1-3 FECAL OCCULT- Tubes sent home (76420) [facility] Work Phone: Start: 09-24-2019 Cobalamin (Vitamin B12) [Mass/Vol] VITAMIN B-12 (CYANOCOBALAMIN) (41586) [facility] Work Phone: Start: 09-24-2019 Blood count reticulocyte automated [facility] Work Phone: Start: 09-24-2019 Lactate dehydrogenase ldh LDH (LD) (LACTATE DEHYDROGENASE) (22934) [facility] Work Phone: Start: 09-24-2019 Iron binding capacity IRON BINDING CAPACITY (TIBC) (54628) [facility] Work Phone: Start: 09-24-2019 Assay of iron [facility]; [facility] Work Phone: Start: 09-24-2019 Iron [Mass/Vol] IRON (15657) [facility] Work Phone: Start: 09-24-2019 Ferritin [Mass/Vol] FERRITIN (63870) [facility] Work Phone: Start: 09-24-2019 Assay of haptoglobin quantitative HAPTOGLOBIN (92812) [facility] Work Phone: Start: 09-24-2019 Blood count complete auto&auto difrntl wbc CBC, PLATELETS & AUT DIFF (77895) [facility] Work Phone: Start: 09-22-2019 Hepatic function panel HEPATIC FUNCTION PANEL (36324) [facility] Work Phone: Payers Date Payer Category Payer Medicare [id number] 1940 Unknown [id number] Private Health Insurance [employer] Unknown Social History Date Type Detail Facility Exercise History: Moderate. Comprehens [facility] Work Phone: Functional Status Date Assessment Result Facility 05-08-2019 LP-IR Score <25 [facility] Work Phone: Clinical Notes Note Date & Type Note Facility [facility] Work Phone: Instructions* Name Dates Details How to access health informa tion online Indication:Non-smoker Start:14-Jun-2020 Instruction Type:Patient Education How to access health informa tion online - Detail Indication:Non-smoker Start:14-Jun-2020 Instruction Type:Patient Education Patient Instructions Indication:Non-smoker Start:14-Jun-2020 Instruction Type:Provider Instructions for Treatment How to access health informa tion online Indication:Non-smoker Start:21-Apr-2020 Instruction Type:Patient Education How to access health informa tion online - Detail Indication:Non-smoker Start:21-Apr-2020 Instruction Type:Patient Education Patient Instructions Indication:Non-smoker Start:21-Apr-2020 Instruction Type:Provider Instructions for Treatment How to access health informa tion online Indication:BMI 28.0-28.9,adult Start:19-Dec-2019 Instruction Type:Patient Education How to access health informa tion online - Detail Indication:BMI 28.0-28.9,adult Start:19-Dec-2019 Instruction Type:Patient Education Patient Instructions Indication:BMI 28.0-28.9,adult Start:19-Dec-2019 Instruction Type:Provider Instructions for Treatment How to access health informa tion online Indication:Non-smoker Start:09-Oct-2019 Instruction Type:Patient Education How to access health informa tion online - Detail Indication:Non-smoker Start:09-Oct-2019 Instruction Type:Patient Education Patient Instructions Indication:Non-smoker Start:09-Oct-2019 Instruction Type:Provider Instructions for Treatment How to access health informa tion online Indication:Non-smoker Start:08-May-2019 Instruction Type:Patient Education How to access health informa tion online - Detail Indication:Non-smoker Start:08-May-2019 Instruction Type:Patient Education Patient Instructions Indication:Non-smoker Start:08-May-2019 Instruction Type:Provider Instructions for Treatment How to access health informa tion online Indication:Non-smoker Start:13-Mar-2019 Instruction Type:Patient Education How to access health informa tion online - Detail Indication:Non-smoker Start:13-Mar-2019 Instruction Type:Patient Education Patient Instructions Indication:Non-smoker Start:13-Mar-2019 Instruction Type:Provider Instructions for Treatment How to access health informa tion online Indication:Non-smoker Start:12-Sep-2018 Instruction Type:Patient Education How to access health informa tion online - Detail Indication:Non-smoker Start:12-Sep-2018 Instruction Type:Patient Education Patient Instructions Indication:Non-smoker Start:12-Sep-2018 Instruction Type:Provider Instructions for Treatment How to access health informa tion online Indication:Current nonsmoker (Renamed from Current non-smoker) Start:22-Aug-2018 Instruction Type:Patient Education How to access health informa tion online - Detail Indication:Current nonsmoker (Renamed from Current non-smoker) Start:22-Aug-2018 Instruction Type:Patient Education Patient Instructions Indication:Current nonsmoker (Renamed from Current non-smoker) Start:22-Aug-2018 Instruction Type:Provider Instructions for Treatment How to access health informa tion online Indication:Current nonsmoker (Renamed from Current non-smoker) Start:26-Apr-2018 Instruction Type:Patient Education How to access health informa tion online - Detail Indication:Current nonsmoker (Renamed from Current non-smoker) Start:26-Apr-2018 Instruction Type:Patient Education Patient Instructions Indication:Current nonsmoker (Renamed from Current non-smoker) Start:26-Apr-2018 Instruction Type:Provider Instructions for Treatment How to access health informa tion online Indication:Current nonsmoker (Renamed from Current non-smoker) Start:19-Apr-2018 Instruction Type:Patient Education How to access health informa tion online - Detail Indication:Current nonsmoker (Renamed from Current non-smoker) Start:19-Apr-2018 Instruction Type:Patient Education Patient Instructions Indication:Current nonsmoker (Renamed from Current non-smoker) Start:19-Apr-2018 Instruction Type:Provider Instructions for Treatment How to access health informa tion online Indication:Current nonsmoker (Renamed from Current non-smoker) Start:27-Jun-2017 Instruction Type:Patient Education How to access health informa tion online - Detail Indication:Current nonsmoker (Renamed from Current non-smoker) Start:27-Jun-2017 Instruction Type:Patient Education Patient Instructions Indication:Current nonsmoker (Renamed from Current non-smoker) Start:27-Jun-2017 Instruction Type:Provider Instructions for Treatment How to access health informa tion online Indication:Current nonsmoker (Renamed from Current non-smoker) Start:26-Apr-2017 Instruction Type:Patient Education How to access health informa tion online - Detail Indication:Current nonsmoker (Renamed from Current non-smoker) Start:26-Apr-2017 Instruction Type:Patient Education Patient Instructions Indication:Current nonsmoker (Renamed from Current non-smoker) Start:26-Apr-2017 Instruction Type:Provider Instructions for Treatment How to access health informa tion online Indication:Current nonsmoker (Renamed from Current non-smoker) Start:02-Mar-2017 Instruction Type:Patient Education How to access health informa tion online - Detail Indication:Current nonsmoker (Renamed from Current non-smoker) Start:02-Mar-2017 Instruction Type:Patient Education Patient Instructions Indication:Current nonsmoker (Renamed from Current non-smoker) Start:02-Mar-2017 Instruction Type:Provider Instructions for Treatment Patient Instructions Indication:Current nonsmoker (Renamed from Current non-smoker) Start:01-Feb-2017 Instruction Type:Provider Instructions for Treatment How to access health informa tion online Indication:Current nonsmoker (Renamed from Current non-smoker) Start:01-Feb-2017 Instruction Type:Patient Education How to access health informa tion online - Detail Indication:Current nonsmoker (Renamed from Current non-smoker) Start:01-Feb-2017 Instruction Type:Patient Education How to access health informa tion online Indication:Dysuria Start:25-Jan-2017 Instruction Type:Patient Education How to access health informa tion online - Detail Indication:Dysuria Start:25-Jan-2017 Instruction Type:Patient Education Patient Instructions Indication:Dysuria Start:25-Jan-2017 Instruction Type:Provider Instructions for Treatment How to access health informa tion online Indication:Hypertension Start:28-Dec-2016 Instruction Type:Patient Education How to access health informa tion online - Detail Indication:Hypertension Start:28-Dec-2016 Instruction Type:Patient Education Patient Instructions Indication:Hypertension Start:28-Dec-2016 Instruction Type:Provider Instructions for Treatment How to access health informa tion online Indication:Hypertension Start:14-Dec-2016 Instruction Type:Patient Education How to access health informa tion online - Detail Indication:Hypertension Start:14-Dec-2016 Instruction Type:Patient Education Patient Instructions Indication:Hypertension Start:14-Dec-2016 Instruction Type:Provider Instructions for Treatment How to access health informa tion online Indication:Cough Start:25-Jul-2016 Instruction Type:Patient Education How to access health informa tion online - Detail Indication:Cough Start:25-Jul-2016 Instruction Type:Patient Education Patient Instructions Indication:Cough Start:25-Jul-2016 Instruction Type:Provider Instructions for Treatment [facility]; [facility] Work Phone: Instructions* Name Dates Details How to access health informa tion online Indication:Non-smoker Start:14-Jun-2020 Instruction Type:Patient Education How to access health informa tion online - Detail Indication:Non-smoker Start:14-Jun-2020 Instruction Type:Patient Education Patient Instructions Indication:Non-smoker Start:14-Jun-2020 Instruction Type:Provider Instructions for Treatment How to access health informa tion online Indication:Non-smoker Start:21-Apr-2020 Instruction Type:Patient Education How to access health informa tion online - Detail Indication:Non-smoker Start:21-Apr-2020 Instruction Type:Patient Education Patient Instructions Indication:Non-smoker Start:21-Apr-2020 Instruction Type:Provider Instructions for Treatment How to access health informa tion online Indication:BMI 28.0-28.9,adult Start:19-Dec-2019 Instruction Type:Patient Education How to access health informa tion online - Detail Indication:BMI 28.0-28.9,adult Start:19-Dec-2019 Instruction Type:Patient Education Patient Instructions Indication:BMI 28.0-28.9,adult Start:19-Dec-2019 Instruction Type:Provider Instructions for Treatment How to access health informa tion online Indication:Non-smoker Start:09-Oct-2019 Instruction Type:Patient Education How to access health informa tion online - Detail Indication:Non-smoker Start:09-Oct-2019 Instruction Type:Patient Education Patient Instructions Indication:Non-smoker Start:09-Oct-2019 Instruction Type:Provider Instructions for Treatment How to access health informa tion online Indication:Non-smoker Start:08-May-2019 Instruction Type:Patient Education How to access health informa tion online - Detail Indication:Non-smoker Start:08-May-2019 Instruction Type:Patient Education Patient Instructions Indication:Non-smoker Start:08-May-2019 Instruction Type:Provider Instructions for Treatment How to access health informa tion online Indication:Non-smoker Start:13-Mar-2019 Instruction Type:Patient Education How to access health informa tion online - Detail Indication:Non-smoker Start:13-Mar-2019 Instruction Type:Patient Education Patient Instructions Indication:Non-smoker Start:13-Mar-2019 Instruction Type:Provider Instructions for Treatment How to access health informa tion online Indication:Non-smoker Start:12-Sep-2018 Instruction Type:Patient Education How to access health informa tion online - Detail Indication:Non-smoker Start:12-Sep-2018 Instruction Type:Patient Education Patient Instructions Indication:Non-smoker Start:12-Sep-2018 Instruction Type:Provider Instructions for Treatment How to access health informa tion online Indication:Current nonsmoker (Renamed from Current non-smoker) Start:22-Aug-2018 Instruction Type:Patient Education How to access health informa tion online - Detail Indication:Current nonsmoker (Renamed from Current non-smoker) Start:22-Aug-2018 Instruction Type:Patient Education Patient Instructions Indication:Current nonsmoker (Renamed from Current non-smoker) Start:22-Aug-2018 Instruction Type:Provider Instructions for Treatment How to access health informa tion online Indication:Current nonsmoker (Renamed from Current non-smoker) Start:26-Apr-2018 Instruction Type:Patient Education How to access health informa tion online - Detail Indication:Current nonsmoker (Renamed from Current non-smoker) Start:26-Apr-2018 Instruction Type:Patient Education Patient Instructions Indication:Current nonsmoker (Renamed from Current non-smoker) Start:26-Apr-2018 Instruction Type:Provider Instructions for Treatment How to access health informa tion online Indication:Current nonsmoker (Renamed from Current non-smoker) Start:19-Apr-2018 Instruction Type:Patient Education How to access health informa tion online - Detail Indication:Current nonsmoker (Renamed from Current non-smoker) Start:19-Apr-2018 Instruction Type:Patient Education Patient Instructions Indication:Current nonsmoker (Renamed from Current non-smoker) Start:19-Apr-2018 Instruction Type:Provider Instructions for Treatment How to access health informa tion online Indication:Current nonsmoker (Renamed from Current non-smoker) Start:27-Jun-2017 Instruction Type:Patient Education How to access health informa tion online - Detail Indication:Current nonsmoker (Renamed from Current non-smoker) Start:27-Jun-2017 Instruction Type:Patient Education Patient Instructions Indication:Current nonsmoker (Renamed from Current non-smoker) Start:27-Jun-2017 Instruction Type:Provider Instructions for Treatment How to access health informa tion online Indication:Current nonsmoker (Renamed from Current non-smoker) Start:26-Apr-2017 Instruction Type:Patient Education How to access health informa tion online - Detail Indication:Current nonsmoker (Renamed from Current non-smoker) Start:26-Apr-2017 Instruction Type:Patient Education Patient Instructions Indication:Current nonsmoker (Renamed from Current non-smoker) Start:26-Apr-2017 Instruction Type:Provider Instructions for Treatment How to access health informa tion online Indication:Current nonsmoker (Renamed from Current non-smoker) Start:02-Mar-2017 Instruction Type:Patient Education How to access health informa tion online - Detail Indication:Current nonsmoker (Renamed from Current non-smoker) Start:02-Mar-2017 Instruction Type:Patient Education Patient Instructions Indication:Current nonsmoker (Renamed from Current non-smoker) Start:02-Mar-2017 Instruction Type:Provider Instructions for Treatment Patient Instructions Indication:Current nonsmoker (Renamed from Current non-smoker) Start:01-Feb-2017 Instruction Type:Provider Instructions for Treatment How to access health informa tion online Indication:Current nonsmoker (Renamed from Current non-smoker) Start:01-Feb-2017 Instruction Type:Patient Education How to access health informa tion online - Detail Indication:Current nonsmoker (Renamed from Current non-smoker) Start:01-Feb-2017 Instruction Type:Patient Education How to access health informa tion online Indication:Dysuria Start:25-Jan-2017 Instruction Type:Patient Education How to access health informa tion online - Detail Indication:Dysuria Start:25-Jan-2017 Instruction Type:Patient Education Patient Instructions Indication:Dysuria Start:25-Jan-2017 Instruction Type:Provider Instructions for Treatment How to access health informa tion online Indication:Hypertension Start:28-Dec-2016 Instruction Type:Patient Education How to access health informa tion online - Detail Indication:Hypertension Start:28-Dec-2016 Instruction Type:Patient Education Patient Instructions Indication:Hypertension Start:28-Dec-2016 Instruction Type:Provider Instructions for Treatment How to access health informa tion online Indication:Hypertension Start:14-Dec-2016 Instruction Type:Patient Education How to access health informa tion online - Detail Indication:Hypertension Start:14-Dec-2016 Instruction Type:Patient Education Patient Instructions Indication:Hypertension Start:14-Dec-2016 Instruction Type:Provider Instructions for Treatment How to access health informa tion online Indication:Cough Start:25-Jul-2016 Instruction Type:Patient Education How to access health informa tion online - Detail Indication:Cough Start:25-Jul-2016 Instruction Type:Patient Education Patient Instructions Indication:Cough Start:25-Jul-2016 Instruction Type:Provider Instructions for Treatment [facility]; [facility] Work Phone: Instructions* Name Dates Details How to access health informa tion online Indication:Non-smoker Start:14-Jun-2020 Instruction Type:Patient Education How to access health informa tion online - Detail Indication:Non-smoker Start:14-Jun-2020 Instruction Type:Patient Education Patient Instructions Indication:Non-smoker Start:14-Jun-2020 Instruction Type:Provider Instructions for Treatment How to access health informa tion online Indication:Non-smoker Start:21-Apr-2020 Instruction Type:Patient Education How to access health informa tion online - Detail Indication:Non-smoker Start:21-Apr-2020 Instruction Type:Patient Education Patient Instructions Indication:Non-smoker Start:21-Apr-2020 Instruction Type:Provider Instructions for Treatment How to access health informa tion online Indication:BMI 28.0-28.9,adult Start:19-Dec-2019 Instruction Type:Patient Education How to access health informa tion online - Detail Indication:BMI 28.0-28.9,adult Start:19-Dec-2019 Instruction Type:Patient Education Patient Instructions Indication:BMI 28.0-28.9,adult Start:19-Dec-2019 Instruction Type:Provider Instructions for Treatment How to access health informa tion online Indication:Non-smoker Start:09-Oct-2019 Instruction Type:Patient Education How to access health informa tion online - Detail Indication:Non-smoker Start:09-Oct-2019 Instruction Type:Patient Education Patient Instructions Indication:Non-smoker Start:09-Oct-2019 Instruction Type:Provider Instructions for Treatment How to access health informa tion online Indication:Non-smoker Start:08-May-2019 Instruction Type:Patient Education How to access health informa tion online - Detail Indication:Non-smoker Start:08-May-2019 Instruction Type:Patient Education Patient Instructions Indication:Non-smoker Start:08-May-2019 Instruction Type:Provider Instructions for Treatment How to access health informa tion online Indication:Non-smoker Start:13-Mar-2019 Instruction Type:Patient Education How to access health informa tion online - Detail Indication:Non-smoker Start:13-Mar-2019 Instruction Type:Patient Education Patient Instructions Indication:Non-smoker Start:13-Mar-2019 Instruction Type:Provider Instructions for Treatment How to access health informa tion online Indication:Non-smoker Start:12-Sep-2018 Instruction Type:Patient Education How to access health informa tion online - Detail Indication:Non-smoker Start:12-Sep-2018 Instruction Type:Patient Education Patient Instructions Indication:Non-smoker Start:12-Sep-2018 Instruction Type:Provider Instructions for Treatment How to access health informa tion online Indication:Current nonsmoker (Renamed from Current non-smoker) Start:22-Aug-2018 Instruction Type:Patient Education How to access health informa tion online - Detail Indication:Current nonsmoker (Renamed from Current non-smoker) Start:22-Aug-2018 Instruction Type:Patient Education Patient Instructions Indication:Current nonsmoker (Renamed from Current non-smoker) Start:22-Aug-2018 Instruction Type:Provider Instructions for Treatment How to access health informa tion online Indication:Current nonsmoker (Renamed from Current non-smoker) Start:26-Apr-2018 Instruction Type:Patient Education How to access health informa tion online - Detail Indication:Current nonsmoker (Renamed from Current non-smoker) Start:26-Apr-2018 Instruction Type:Patient Education Patient Instructions Indication:Current nonsmoker (Renamed from Current non-smoker) Start:26-Apr-2018 Instruction Type:Provider Instructions for Treatment How to access health informa tion online Indication:Current nonsmoker (Renamed from Current non-smoker) Start:19-Apr-2018 Instruction Type:Patient Education How to access health informa tion online - Detail Indication:Current nonsmoker (Renamed from Current non-smoker) Start:19-Apr-2018 Instruction Type:Patient Education Patient Instructions Indication:Current nonsmoker (Renamed from Current non-smoker) Start:19-Apr-2018 Instruction Type:Provider Instructions for Treatment How to access health informa tion online Indication:Current nonsmoker (Renamed from Current non-smoker) Start:27-Jun-2017 Instruction Type:Patient Education How to access health informa tion online - Detail Indication:Current nonsmoker (Renamed from Current non-smoker) Start:27-Jun-2017 Instruction Type:Patient Education Patient Instructions Indication:Current nonsmoker (Renamed from Current non-smoker) Start:27-Jun-2017 Instruction Type:Provider Instructions for Treatment How to access health informa tion online Indication:Current nonsmoker (Renamed from Current non-smoker) Start:26-Apr-2017 Instruction Type:Patient Education How to access health informa tion online - Detail Indication:Current nonsmoker (Renamed from Current non-smoker) Start:26-Apr-2017 Instruction Type:Patient Education Patient Instructions Indication:Current nonsmoker (Renamed from Current non-smoker) Start:26-Apr-2017 Instruction Type:Provider Instructions for Treatment How to access health informa tion online Indication:Current nonsmoker (Renamed from Current non-smoker) Start:02-Mar-2017 Instruction Type:Patient Education How to access health informa tion online - Detail Indication:Current nonsmoker (Renamed from Current non-smoker) Start:02-Mar-2017 Instruction Type:Patient Education Patient Instructions Indication:Current nonsmoker (Renamed from Current non-smoker) Start:02-Mar-2017 Instruction Type:Provider Instructions for Treatment Patient Instructions Indication:Current nonsmoker (Renamed from Current non-smoker) Start:01-Feb-2017 Instruction Type:Provider Instructions for Treatment How to access health informa tion online Indication:Current nonsmoker (Renamed from Current non-smoker) Start:01-Feb-2017 Instruction Type:Patient Education How to access health informa tion online - Detail Indication:Current nonsmoker (Renamed from Current non-smoker) Start:01-Feb-2017 Instruction Type:Patient Education How to access health informa tion online Indication:Dysuria Start:25-Jan-2017 Instruction Type:Patient Education How to access health informa tion online - Detail Indication:Dysuria Start:25-Jan-2017 Instruction Type:Patient Education Patient Instructions Indication:Dysuria Start:25-Jan-2017 Instruction Type:Provider Instructions for Treatment How to access health informa tion online Indication:Hypertension Start:28-Dec-2016 Instruction Type:Patient Education How to access health informa tion online - Detail Indication:Hypertension Start:28-Dec-2016 Instruction Type:Patient Education Patient Instructions Indication:Hypertension Start:28-Dec-2016 Instruction Type:Provider Instructions for Treatment How to access health informa tion online Indication:Hypertension Start:14-Dec-2016 Instruction Type:Patient Education How to access health informa tion online - Detail Indication:Hypertension Start:14-Dec-2016 Instruction Type:Patient Education Patient Instructions Indication:Hypertension Start:14-Dec-2016 Instruction Type:Provider Instructions for Treatment How to access health informa tion online Indication:Cough Start:25-Jul-2016 Instruction Type:Patient Education How to access health informa tion online - Detail Indication:Cough Start:25-Jul-2016 Instruction Type:Patient Education Patient Instructions Indication:Cough Start:25-Jul-2016 Instruction Type:Provider Instructions for Treatment [facility]; [facility] Work Phone: Instructions* Name Dates Details Patient Instructions Indication:Non-smoker Start:30-Nov-2021 Instruction Type:Provider Instructions for Treatment How to Access Health Informa tion Online using Patient Portal and [employer] Apps Indication:Non-smoker Start:30-Nov-2021 Instruction Type:Patient Education How to access health informa tion online Indication:Non-smoker Start:14-Jun-2020 Instruction Type:Patient Education How to access health informa tion online - Detail Indication:Non-smoker Start:14-Jun-2020 Instruction Type:Patient Education Patient Instructions Indication:Non-smoker Start:14-Jun-2020 Instruction Type:Provider Instructions for Treatment How to access health informa tion online Indication:Non-smoker Start:21-Apr-2020 Instruction Type:Patient Education How to access health informa tion online - Detail Indication:Non-smoker Start:21-Apr-2020 Instruction Type:Patient Education Patient Instructions Indication:Non-smoker Start:21-Apr-2020 Instruction Type:Provider Instructions for Treatment How to access health informa tion online Indication:BMI 28.0-28.9,adult Start:19-Dec-2019 Instruction Type:Patient Education How to access health informa tion online - Detail Indication:BMI 28.0-28.9,adult Start:19-Dec-2019 Instruction Type:Patient Education Patient Instructions Indication:BMI 28.0-28.9,adult Start:19-Dec-2019 Instruction Type:Provider Instructions for Treatment How to access health informa tion online Indication:Non-smoker Start:09-Oct-2019 Instruction Type:Patient Education How to access health informa tion online - Detail Indication:Non-smoker Start:09-Oct-2019 Instruction Type:Patient Education Patient Instructions Indication:Non-smoker Start:09-Oct-2019 Instruction Type:Provider Instructions for Treatment How to access health informa tion online Indication:Non-smoker Start:08-May-2019 Instruction Type:Patient Education How to access health informa tion online - Detail Indication:Non-smoker Start:08-May-2019 Instruction Type:Patient Education Patient Instructions Indication:Non-smoker Start:08-May-2019 Instruction Type:Provider Instructions for Treatment How to access health informa tion online Indication:Non-smoker Start:13-Mar-2019 Instruction Type:Patient Education How to access health informa tion online - Detail Indication:Non-smoker Start:13-Mar-2019 Instruction Type:Patient Education Patient Instructions Indication:Non-smoker Start:13-Mar-2019 Instruction Type:Provider Instructions for Treatment How to access health informa tion online Indication:Non-smoker Start:12-Sep-2018 Instruction Type:Patient Education How to access health informa tion online - Detail Indication:Non-smoker Start:12-Sep-2018 Instruction Type:Patient Education Patient Instructions Indication:Non-smoker Start:12-Sep-2018 Instruction Type:Provider Instructions for Treatment How to access health informa tion online Indication:Current nonsmoker (Renamed from Current non-smoker) Start:22-Aug-2018 Instruction Type:Patient Education How to access health informa tion online - Detail Indication:Current nonsmoker (Renamed from Current non-smoker) Start:22-Aug-2018 Instruction Type:Patient Education Patient Instructions Indication:Current nonsmoker (Renamed from Current non-smoker) Start:22-Aug-2018 Instruction Type:Provider Instructions for Treatment How to access health informa tion online Indication:Current nonsmoker (Renamed from Current non-smoker) Start:26-Apr-2018 Instruction Type:Patient Education How to access health informa tion online - Detail Indication:Current nonsmoker (Renamed from Current non-smoker) Start:26-Apr-2018 Instruction Type:Patient Education Patient Instructions Indication:Current nonsmoker (Renamed from Current non-smoker) Start:26-Apr-2018 Instruction Type:Provider Instructions for Treatment How to access health informa tion online Indication:Current nonsmoker (Renamed from Current non-smoker) Start:19-Apr-2018 Instruction Type:Patient Education How to access health informa tion online - Detail Indication:Current nonsmoker (Renamed from Current non-smoker) Start:19-Apr-2018 Instruction Type:Patient Education Patient Instructions Indication:Current nonsmoker (Renamed from Current non-smoker) Start:19-Apr-2018 Instruction Type:Provider Instructions for Treatment How to access health informa tion online Indication:Current nonsmoker (Renamed from Current non-smoker) Start:27-Jun-2017 Instruction Type:Patient Education How to access health informa tion online - Detail Indication:Current nonsmoker (Renamed from Current non-smoker) Start:27-Jun-2017 Instruction Type:Patient Education Patient Instructions Indication:Current nonsmoker (Renamed from Current non-smoker) Start:27-Jun-2017 Instruction Type:Provider Instructions for Treatment How to access health informa tion online Indication:Current nonsmoker (Renamed from Current non-smoker) Start:26-Apr-2017 Instruction Type:Patient Education How to access health informa tion online - Detail Indication:Current nonsmoker (Renamed from Current non-smoker) Start:26-Apr-2017 Instruction Type:Patient Education Patient Instructions Indication:Current nonsmoker (Renamed from Current non-smoker) Start:26-Apr-2017 Instruction Type:Provider Instructions for Treatment How to access health informa tion online Indication:Current nonsmoker (Renamed from Current non-smoker) Start:02-Mar-2017 Instruction Type:Patient Education How to access health informa tion online - Detail Indication:Current nonsmoker (Renamed from Current non-smoker) Start:02-Mar-2017 Instruction Type:Patient Education Patient Instructions Indication:Current nonsmoker (Renamed from Current non-smoker) Start:02-Mar-2017 Instruction Type:Provider Instructions for Treatment Patient Instructions Indication:Current nonsmoker (Renamed from Current non-smoker) Start:01-Feb-2017 Instruction Type:Provider Instructions for Treatment How to access health informa tion online Indication:Current nonsmoker (Renamed from Current non-smoker) Start:01-Feb-2017 Instruction Type:Patient Education How to access health informa tion online - Detail Indication:Current nonsmoker (Renamed from Current non-smoker) Start:01-Feb-2017 Instruction Type:Patient Education How to access health informa tion online Indication:Dysuria Start:25-Jan-2017 Instruction Type:Patient Education How to access health informa tion online - Detail Indication:Dysuria Start:25-Jan-2017 Instruction Type:Patient Education Patient Instructions Indication:Dysuria Start:25-Jan-2017 Instruction Type:Provider Instructions for Treatment How to access health informa tion online Indication:Hypertension Start:28-Dec-2016 Instruction Type:Patient Education How to access health informa tion online - Detail Indication:Hypertension Start:28-Dec-2016 Instruction Type:Patient Education Patient Instructions Indication:Hypertension Start:28-Dec-2016 Instruction Type:Provider Instructions for Treatment How to access health informa tion online Indication:Hypertension Start:14-Dec-2016 Instruction Type:Patient Education How to access health informa tion online - Detail Indication:Hypertension Start:14-Dec-2016 Instruction Type:Patient Education Patient Instructions Indication:Hypertension Start:14-Dec-2016 Instruction Type:Provider Instructions for Treatment How to access health informa tion online Indication:Cough Start:25-Jul-2016 Instruction Type:Patient Education How to access health informa tion online - Detail Indication:Cough Start:25-Jul-2016 Instruction Type:Patient Education Patient Instructions Indication:Cough Start:25-Jul-2016 Instruction Type:Provider Instructions for Treatment [facility]; [facility] Work Phone: Instructions* Name Dates Details Patient Instructions Indication:Non-smoker Start:30-Nov-2021 Instruction Type:Provider Instructions for Treatment How to Access Health Informa tion Online using Patient Portal and [employer] Apps Indication:Non-smoker Start:30-Nov-2021 Instruction Type:Patient Education How to access health informa tion online Indication:Non-smoker Start:14-Jun-2020 Instruction Type:Patient Education How to access health informa tion online - Detail Indication:Non-smoker Start:14-Jun-2020 Instruction Type:Patient Education Patient Instructions Indication:Non-smoker Start:14-Jun-2020 Instruction Type:Provider Instructions for Treatment How to access health informa tion online Indication:Non-smoker Start:21-Apr-2020 Instruction Type:Patient Education How to access health informa tion online - Detail Indication:Non-smoker Start:21-Apr-2020 Instruction Type:Patient Education Patient Instructions Indication:Non-smoker Start:21-Apr-2020 Instruction Type:Provider Instructions for Treatment How to access health informa tion online Indication:BMI 28.0-28.9,adult Start:19-Dec-2019 Instruction Type:Patient Education How to access health informa tion online - Detail Indication:BMI 28.0-28.9,adult Start:19-Dec-2019 Instruction Type:Patient Education Patient Instructions Indication:BMI 28.0-28.9,adult Start:19-Dec-2019 Instruction Type:Provider Instructions for Treatment How to access health informa tion online Indication:Non-smoker Start:09-Oct-2019 Instruction Type:Patient Education How to access health informa tion online - Detail Indication:Non-smoker Start:09-Oct-2019 Instruction Type:Patient Education Patient Instructions Indication:Non-smoker Start:09-Oct-2019 Instruction Type:Provider Instructions for Treatment How to access health informa tion online Indication:Non-smoker Start:08-May-2019 Instruction Type:Patient Education How to access health informa tion online - Detail Indication:Non-smoker Start:08-May-2019 Instruction Type:Patient Education Patient Instructions Indication:Non-smoker Start:08-May-2019 Instruction Type:Provider Instructions for Treatment How to access health informa tion online Indication:Non-smoker Start:13-Mar-2019 Instruction Type:Patient Education How to access health informa tion online - Detail Indication:Non-smoker Start:13-Mar-2019 Instruction Type:Patient Education Patient Instructions Indication:Non-smoker Start:13-Mar-2019 Instruction Type:Provider Instructions for Treatment How to access health informa tion online Indication:Non-smoker Start:12-Sep-2018 Instruction Type:Patient Education How to access health informa tion online - Detail Indication:Non-smoker Start:12-Sep-2018 Instruction Type:Patient Education Patient Instructions Indication:Non-smoker Start:12-Sep-2018 Instruction Type:Provider Instructions for Treatment How to access health informa tion online Indication:Current nonsmoker (Renamed from Current non-smoker) Start:22-Aug-2018 Instruction Type:Patient Education How to access health informa tion online - Detail Indication:Current nonsmoker (Renamed from Current non-smoker) Start:22-Aug-2018 Instruction Type:Patient Education Patient Instructions Indication:Current nonsmoker (Renamed from Current non-smoker) Start:22-Aug-2018 Instruction Type:Provider Instructions for Treatment How to access health informa tion online Indication:Current nonsmoker (Renamed from Current non-smoker) Start:26-Apr-2018 Instruction Type:Patient Education How to access health informa tion online - Detail Indication:Current nonsmoker (Renamed from Current non-smoker) Start:26-Apr-2018 Instruction Type:Patient Education Patient Instructions Indication:Current nonsmoker (Renamed from Current non-smoker) Start:26-Apr-2018 Instruction Type:Provider Instructions for Treatment How to access health informa tion online Indication:Current nonsmoker (Renamed from Current non-smoker) Start:19-Apr-2018 Instruction Type:Patient Education How to access health informa tion online - Detail Indication:Current nonsmoker (Renamed from Current non-smoker) Start:19-Apr-2018 Instruction Type:Patient Education Patient Instructions Indication:Current nonsmoker (Renamed from Current non-smoker) Start:19-Apr-2018 Instruction Type:Provider Instructions for Treatment How to access health informa tion online Indication:Current nonsmoker (Renamed from Current non-smoker) Start:27-Jun-2017 Instruction Type:Patient Education How to access health informa tion online - Detail Indication:Current nonsmoker (Renamed from Current non-smoker) Start:27-Jun-2017 Instruction Type:Patient Education Patient Instructions Indication:Current nonsmoker (Renamed from Current non-smoker) Start:27-Jun-2017 Instruction Type:Provider Instructions for Treatment How to access health informa tion online Indication:Current nonsmoker (Renamed from Current non-smoker) Start:26-Apr-2017 Instruction Type:Patient Education How to access health informa tion online - Detail Indication:Current nonsmoker (Renamed from Current non-smoker) Start:26-Apr-2017 Instruction Type:Patient Education Patient Instructions Indication:Current nonsmoker (Renamed from Current non-smoker) Start:26-Apr-2017 Instruction Type:Provider Instructions for Treatment How to access health informa tion online Indication:Current nonsmoker (Renamed from Current non-smoker) Start:02-Mar-2017 Instruction Type:Patient Education How to access health informa tion online - Detail Indication:Current nonsmoker (Renamed from Current non-smoker) Start:02-Mar-2017 Instruction Type:Patient Education Patient Instructions Indication:Current nonsmoker (Renamed from Current non-smoker) Start:02-Mar-2017 Instruction Type:Provider Instructions for Treatment Patient Instructions Indication:Current nonsmoker (Renamed from Current non-smoker) Start:01-Feb-2017 Instruction Type:Provider Instructions for Treatment How to access health informa tion online Indication:Current nonsmoker (Renamed from Current non-smoker) Start:01-Feb-2017 Instruction Type:Patient Education How to access health informa tion online - Detail Indication:Current nonsmoker (Renamed from Current non-smoker) Start:01-Feb-2017 Instruction Type:Patient Education How to access health informa tion online Indication:Dysuria Start:25-Jan-2017 Instruction Type:Patient Education How to access health informa tion online - Detail Indication:Dysuria Start:25-Jan-2017 Instruction Type:Patient Education Patient Instructions Indication:Dysuria Start:25-Jan-2017 Instruction Type:Provider Instructions for Treatment How to access health informa tion online Indication:Hypertension Start:28-Dec-2016 Instruction Type:Patient Education How to access health informa tion online - Detail Indication:Hypertension Start:28-Dec-2016 Instruction Type:Patient Education Patient Instructions Indication:Hypertension Start:28-Dec-2016 Instruction Type:Provider Instructions for Treatment How to access health informa tion online Indication:Hypertension Start:14-Dec-2016 Instruction Type:Patient Education How to access health informa tion online - Detail Indication:Hypertension Start:14-Dec-2016 Instruction Type:Patient Education Patient Instructions Indication:Hypertension Start:14-Dec-2016 Instruction Type:Provider Instructions for Treatment How to access health informa tion online Indication:Cough Start:25-Jul-2016 Instruction Type:Patient Education How to access health informa tion online - Detail Indication:Cough Start:25-Jul-2016 Instruction Type:Patient Education Patient Instructions Indication:Cough Start:25-Jul-2016 Instruction Type:Provider Instructions for Treatment [facility]; [facility] Work Phone: Instructions* Name Dates Details Patient Instructions Indication:Non-smoker Start:30-Nov-2021 Instruction Type:Provider Instructions for Treatment How to Access Health Informa tion Online using Patient Portal and [employer] Indication:Non-smoker Start:30-Nov-2021 Instruction Type:Patient Education How to access health informa tion online Indication:Non-smoker Start:14-Jun-2020 Instruction Type:Patient Education How to access health informa tion online - Detail Indication:Non-smoker Start:14-Jun-2020 Instruction Type:Patient Education Patient Instructions Indication:Non-smoker Start:14-Jun-2020 Instruction Type:Provider Instructions for Treatment How to access health informa tion online Indication:Non-smoker Start:21-Apr-2020 Instruction Type:Patient Education How to access health informa tion online - Detail Indication:Non-smoker Start:21-Apr-2020 Instruction Type:Patient Education Patient Instructions Indication:Non-smoker Start:21-Apr-2020 Instruction Type:Provider Instructions for Treatment How to access health informa tion online Indication:BMI 28.0-28.9,adult Start:19-Dec-2019 Instruction Type:Patient Education How to access health informa tion online - Detail Indication:BMI 28.0-28.9,adult Start:19-Dec-2019 Instruction Type:Patient Education Patient Instructions Indication:BMI 28.0-28.9,adult Start:19-Dec-2019 Instruction Type:Provider Instructions for Treatment How to access health informa tion online Indication:Non-smoker Start:09-Oct-2019 Instruction Type:Patient Education How to access health informa tion online - Detail Indication:Non-smoker Start:09-Oct-2019 Instruction Type:Patient Education Patient Instructions Indication:Non-smoker Start:09-Oct-2019 Instruction Type:Provider Instructions for Treatment How to access health informa tion online Indication:Non-smoker Start:08-May-2019 Instruction Type:Patient Education How to access health informa tion online - Detail Indication:Non-smoker Start:08-May-2019 Instruction Type:Patient Education Patient Instructions Indication:Non-smoker Start:08-May-2019 Instruction Type:Provider Instructions for Treatment How to access health informa tion online Indication:Non-smoker Start:13-Mar-2019 Instruction Type:Patient Education How to access health informa tion online - Detail Indication:Non-smoker Start:13-Mar-2019 Instruction Type:Patient Education Patient Instructions Indication:Non-smoker Start:13-Mar-2019 Instruction Type:Provider Instructions for Treatment How to access health informa tion online Indication:Non-smoker Start:12-Sep-2018 Instruction Type:Patient Education How to access health informa tion online - Detail Indication:Non-smoker Start:12-Sep-2018 Instruction Type:Patient Education Patient Instructions Indication:Non-smoker Start:12-Sep-2018 Instruction Type:Provider Instructions for Treatment How to access health informa tion online Indication:Current nonsmoker (Renamed from Current non-smoker) Start:22-Aug-2018 Instruction Type:Patient Education How to access health informa tion online - Detail Indication:Current nonsmoker (Renamed from Current non-smoker) Start:22-Aug-2018 Instruction Type:Patient Education Patient Instructions Indication:Current nonsmoker (Renamed from Current non-smoker) Start:22-Aug-2018 Instruction Type:Provider Instructions for Treatment How to access health informa tion online Indication:Current nonsmoker (Renamed from Current non-smoker) Start:26-Apr-2018 Instruction Type:Patient Education How to access health informa tion online - Detail Indication:Current nonsmoker (Renamed from Current non-smoker) Start:26-Apr-2018 Instruction Type:Patient Education Patient Instructions Indication:Current nonsmoker (Renamed from Current non-smoker) Start:26-Apr-2018 Instruction Type:Provider Instructions for Treatment How to access health informa tion online Indication:Current nonsmoker (Renamed from Current non-smoker) Start:19-Apr-2018 Instruction Type:Patient Education How to access health informa tion online - Detail Indication:Current nonsmoker (Renamed from Current non-smoker) Start:19-Apr-2018 Instruction Type:Patient Education Patient Instructions Indication:Current nonsmoker (Renamed from Current non-smoker) Start:19-Apr-2018 Instruction Type:Provider Instructions for Treatment How to access health informa tion online Indication:Current nonsmoker (Renamed from Current non-smoker) Start:27-Jun-2017 Instruction Type:Patient Education How to access health informa tion online - Detail Indication:Current nonsmoker (Renamed from Current non-smoker) Start:27-Jun-2017 Instruction Type:Patient Education Patient Instructions Indication:Current nonsmoker (Renamed from Current non-smoker) Start:27-Jun-2017 Instruction Type:Provider Instructions for Treatment How to access health informa tion online Indication:Current nonsmoker (Renamed from Current non-smoker) Start:26-Apr-2017 Instruction Type:Patient Education How to access health informa tion online - Detail Indication:Current nonsmoker (Renamed from Current non-smoker) Start:26-Apr-2017 Instruction Type:Patient Education Patient Instructions Indication:Current nonsmoker (Renamed from Current non-smoker) Start:26-Apr-2017 Instruction Type:Provider Instructions for Treatment How to access health informa tion online Indication:Current nonsmoker (Renamed from Current non-smoker) Start:02-Mar-2017 Instruction Type:Patient Education How to access health informa tion online - Detail Indication:Current nonsmoker (Renamed from Current non-smoker) Start:02-Mar-2017 Instruction Type:Patient Education Patient Instructions Indication:Current nonsmoker (Renamed from Current non-smoker) Start:02-Mar-2017 Instruction Type:Provider Instructions for Treatment Patient Instructions Indication:Current nonsmoker (Renamed from Current non-smoker) Start:01-Feb-2017 Instruction Type:Provider Instructions for Treatment How to access health informa tion online Indication:Current nonsmoker (Renamed from Current non-smoker) Start:01-Feb-2017 Instruction Type:Patient Education How to access health informa tion online - Detail Indication:Current nonsmoker (Renamed from Current non-smoker) Start:01-Feb-2017 Instruction Type:Patient Education How to access health informa tion online Indication:Dysuria Start:25-Jan-2017 Instruction Type:Patient Education How to access health informa tion online - Detail Indication:Dysuria Start:25-Jan-2017 Instruction Type:Patient Education Patient Instructions Indication:Dysuria Start:25-Jan-2017 Instruction Type:Provider Instructions for Treatment How to access health informa tion online Indication:Hypertension Start:28-Dec-2016 Instruction Type:Patient Education How to access health informa tion online - Detail Indication:Hypertension Start:28-Dec-2016 Instruction Type:Patient Education Patient Instructions Indication:Hypertension Start:28-Dec-2016 Instruction Type:Provider Instructions for Treatment How to access health informa tion online Indication:Hypertension Start:14-Dec-2016 Instruction Type:Patient Education How to access health informa tion online - Detail Indication:Hypertension Start:14-Dec-2016 Instruction Type:Patient Education Patient Instructions Indication:Hypertension Start:14-Dec-2016 Instruction Type:Provider Instructions for Treatment How to access health informa tion online Indication:Cough Start:25-Jul-2016 Instruction Type:Patient Education How to access health informa tion online - Detail Indication:Cough Start:25-Jul-2016 Instruction Type:Patient Education Patient Instructions Indication:Cough Start:25-Jul-2016 Instruction Type:Provider Instructions for Treatment [facility]; [facility] Work Phone: Instructions* Name Dates Details Patient Instructions Indication:Non-smoker Start:30-Nov-2021 Instruction Type:Provider Instructions for Treatment How to Access Health Informa tion Online using Patient Portal and [employer] Apps Indication:Non-smoker Start:30-Nov-2021 Instruction Type:Patient Education How to access health informa tion online Indication:Non-smoker Start:14-Jun-2020 Instruction Type:Patient Education How to access health informa tion online - Detail Indication:Non-smoker Start:14-Jun-2020 Instruction Type:Patient Education Patient Instructions Indication:Non-smoker Start:14-Jun-2020 Instruction Type:Provider Instructions for Treatment How to access health informa tion online Indication:Non-smoker Start:21-Apr-2020 Instruction Type:Patient Education How to access health informa tion online - Detail Indication:Non-smoker Start:21-Apr-2020 Instruction Type:Patient Education Patient Instructions Indication:Non-smoker Start:21-Apr-2020 Instruction Type:Provider Instructions for Treatment How to access health informa tion online Indication:BMI 28.0-28.9,adult Start:19-Dec-2019 Instruction Type:Patient Education How to access health informa tion online - Detail Indication:BMI 28.0-28.9,adult Start:19-Dec-2019 Instruction Type:Patient Education Patient Instructions Indication:BMI 28.0-28.9,adult Start:19-Dec-2019 Instruction Type:Provider Instructions for Treatment How to access health informa tion online Indication:Non-smoker Start:09-Oct-2019 Instruction Type:Patient Education How to access health informa tion online - Detail Indication:Non-smoker Start:09-Oct-2019 Instruction Type:Patient Education Patient Instructions Indication:Non-smoker Start:09-Oct-2019 Instruction Type:Provider Instructions for Treatment How to access health informa tion online Indication:Non-smoker Start:08-May-2019 Instruction Type:Patient Education How to access health informa tion online - Detail Indication:Non-smoker Start:08-May-2019 Instruction Type:Patient Education Patient Instructions Indication:Non-smoker Start:08-May-2019 Instruction Type:Provider Instructions for Treatment How to access health informa tion online Indication:Non-smoker Start:13-Mar-2019 Instruction Type:Patient Education How to access health informa tion online - Detail Indication:Non-smoker Start:13-Mar-2019 Instruction Type:Patient Education Patient Instructions Indication:Non-smoker Start:13-Mar-2019 Instruction Type:Provider Instructions for Treatment How to access health informa tion online Indication:Non-smoker Start:12-Sep-2018 Instruction Type:Patient Education How to access health informa tion online - Detail Indication:Non-smoker Start:12-Sep-2018 Instruction Type:Patient Education Patient Instructions Indication:Non-smoker Start:12-Sep-2018 Instruction Type:Provider Instructions for Treatment How to access health informa tion online Indication:Current nonsmoker (Renamed from Current non-smoker) Start:22-Aug-2018 Instruction Type:Patient Education How to access health informa tion online - Detail Indication:Current nonsmoker (Renamed from Current non-smoker) Start:22-Aug-2018 Instruction Type:Patient Education Patient Instructions Indication:Current nonsmoker (Renamed from Current non-smoker) Start:22-Aug-2018 Instruction Type:Provider Instructions for Treatment How to access health informa tion online Indication:Current nonsmoker (Renamed from Current non-smoker) Start:26-Apr-2018 Instruction Type:Patient Education How to access health informa tion online - Detail Indication:Current nonsmoker (Renamed from Current non-smoker) Start:26-Apr-2018 Instruction Type:Patient Education Patient Instructions Indication:Current nonsmoker (Renamed from Current non-smoker) Start:26-Apr-2018 Instruction Type:Provider Instructions for Treatment How to access health informa tion online Indication:Current nonsmoker (Renamed from Current non-smoker) Start:19-Apr-2018 Instruction Type:Patient Education How to access health informa tion online - Detail Indication:Current nonsmoker (Renamed from Current non-smoker) Start:19-Apr-2018 Instruction Type:Patient Education Patient Instructions Indication:Current nonsmoker (Renamed from Current non-smoker) Start:19-Apr-2018 Instruction Type:Provider Instructions for Treatment How to access health informa tion online Indication:Current nonsmoker (Renamed from Current non-smoker) Start:27-Jun-2017 Instruction Type:Patient Education How to access health informa tion online - Detail Indication:Current nonsmoker (Renamed from Current non-smoker) Start:27-Jun-2017 Instruction Type:Patient Education Patient Instructions Indication:Current nonsmoker (Renamed from Current non-smoker) Start:27-Jun-2017 Instruction Type:Provider Instructions for Treatment How to access health informa tion online Indication:Current nonsmoker (Renamed from Current non-smoker) Start:26-Apr-2017 Instruction Type:Patient Education How to access health informa tion online - Detail Indication:Current nonsmoker (Renamed from Current non-smoker) Start:26-Apr-2017 Instruction Type:Patient Education Patient Instructions Indication:Current nonsmoker (Renamed from Current non-smoker) Start:26-Apr-2017 Instruction Type:Provider Instructions for Treatment How to access health informa tion online Indication:Current nonsmoker (Renamed from Current non-smoker) Start:02-Mar-2017 Instruction Type:Patient Education How to access health informa tion online - Detail Indication:Current nonsmoker (Renamed from Current non-smoker) Start:02-Mar-2017 Instruction Type:Patient Education Patient Instructions Indication:Current nonsmoker (Renamed from Current non-smoker) Start:02-Mar-2017 Instruction Type:Provider Instructions for Treatment Patient Instructions Indication:Current nonsmoker (Renamed from Current non-smoker) Start:01-Feb-2017 Instruction Type:Provider Instructions for Treatment How to access health informa tion online Indication:Current nonsmoker (Renamed from Current non-smoker) Start:01-Feb-2017 Instruction Type:Patient Education How to access health informa tion online - Detail Indication:Current nonsmoker (Renamed from Current non-smoker) Start:01-Feb-2017 Instruction Type:Patient Education How to access health informa tion online Indication:Dysuria Start:25-Jan-2017 Instruction Type:Patient Education How to access health informa tion online - Detail Indication:Dysuria Start:25-Jan-2017 Instruction Type:Patient Education Patient Instructions Indication:Dysuria Start:25-Jan-2017 Instruction Type:Provider Instructions for Treatment How to access health informa tion online Indication:Hypertension Start:28-Dec-2016 Instruction Type:Patient Education How to access health informa tion online - Detail Indication:Hypertension Start:28-Dec-2016 Instruction Type:Patient Education Patient Instructions Indication:Hypertension Start:28-Dec-2016 Instruction Type:Provider Instructions for Treatment How to access health informa tion online Indication:Hypertension Start:14-Dec-2016 Instruction Type:Patient Education How to access health informa tion online - Detail Indication:Hypertension Start:14-Dec-2016 Instruction Type:Patient Education Patient Instructions Indication:Hypertension Start:14-Dec-2016 Instruction Type:Provider Instructions for Treatment How to access health informa tion online Indication:Cough Start:25-Jul-2016 Instruction Type:Patient Education How to access health informa tion online - Detail Indication:Cough Start:25-Jul-2016 Instruction Type:Patient Education Patient Instructions Indication:Cough Start:25-Jul-2016 Instruction Type:Provider Instructions for Treatment [facility]; [facility] Work Phone: Instructions* Name Dates Details Patient Instructions Indication:Non-smoker Start:30-Nov-2021 Instruction Type:Provider Instructions for Treatment How to Access Health Informa tion Online using Patient Portal and [employer] Apps Indication:Non-smoker Start:30-Nov-2021 Instruction Type:Patient Education How to access health informa tion online Indication:Non-smoker Start:14-Jun-2020 Instruction Type:Patient Education How to access health informa tion online - Detail Indication:Non-smoker Start:14-Jun-2020 Instruction Type:Patient Education Patient Instructions Indication:Non-smoker Start:14-Jun-2020 Instruction Type:Provider Instructions for Treatment How to access health informa tion online Indication:Non-smoker Start:21-Apr-2020 Instruction Type:Patient Education How to access health informa tion online - Detail Indication:Non-smoker Start:21-Apr-2020 Instruction Type:Patient Education Patient Instructions Indication:Non-smoker Start:21-Apr-2020 Instruction Type:Provider Instructions for Treatment How to access health informa tion online Indication:BMI 28.0-28.9,adult Start:19-Dec-2019 Instruction Type:Patient Education How to access health informa tion online - Detail Indication:BMI 28.0-28.9,adult Start:19-Dec-2019 Instruction Type:Patient Education Patient Instructions Indication:BMI 28.0-28.9,adult Start:19-Dec-2019 Instruction Type:Provider Instructions for Treatment How to access health informa tion online Indication:Non-smoker Start:09-Oct-2019 Instruction Type:Patient Education How to access health informa tion online - Detail Indication:Non-smoker Start:09-Oct-2019 Instruction Type:Patient Education Patient Instructions Indication:Non-smoker Start:09-Oct-2019 Instruction Type:Provider Instructions for Treatment How to access health informa tion online Indication:Non-smoker Start:08-May-2019 Instruction Type:Patient Education How to access health informa tion online - Detail Indication:Non-smoker Start:08-May-2019 Instruction Type:Patient Education Patient Instructions Indication:Non-smoker Start:08-May-2019 Instruction Type:Provider Instructions for Treatment How to access health informa tion online Indication:Non-smoker Start:13-Mar-2019 Instruction Type:Patient Education How to access health informa tion online - Detail Indication:Non-smoker Start:13-Mar-2019 Instruction Type:Patient Education Patient Instructions Indication:Non-smoker Start:13-Mar-2019 Instruction Type:Provider Instructions for Treatment How to access health informa tion online Indication:Non-smoker Start:12-Sep-2018 Instruction Type:Patient Education How to access health informa tion online - Detail Indication:Non-smoker Start:12-Sep-2018 Instruction Type:Patient Education Patient Instructions Indication:Non-smoker Start:12-Sep-2018 Instruction Type:Provider Instructions for Treatment How to access health informa tion online Indication:Current nonsmoker (Renamed from Current non-smoker) Start:22-Aug-2018 Instruction Type:Patient Education How to access health informa tion online - Detail Indication:Current nonsmoker (Renamed from Current non-smoker) Start:22-Aug-2018 Instruction Type:Patient Education Patient Instructions Indication:Current nonsmoker (Renamed from Current non-smoker) Start:22-Aug-2018 Instruction Type:Provider Instructions for Treatment How to access health informa tion online Indication:Current nonsmoker (Renamed from Current non-smoker) Start:26-Apr-2018 Instruction Type:Patient Education How to access health informa tion online - Detail Indication:Current nonsmoker (Renamed from Current non-smoker) Start:26-Apr-2018 Instruction Type:Patient Education Patient Instructions Indication:Current nonsmoker (Renamed from Current non-smoker) Start:26-Apr-2018 Instruction Type:Provider Instructions for Treatment How to access health informa tion online Indication:Current nonsmoker (Renamed from Current non-smoker) Start:19-Apr-2018 Instruction Type:Patient Education How to access health informa tion online - Detail Indication:Current nonsmoker (Renamed from Current non-smoker) Start:19-Apr-2018 Instruction Type:Patient Education Patient Instructions Indication:Current nonsmoker (Renamed from Current non-smoker) Start:19-Apr-2018 Instruction Type:Provider Instructions for Treatment How to access health informa tion online Indication:Current nonsmoker (Renamed from Current non-smoker) Start:27-Jun-2017 Instruction Type:Patient Education How to access health informa tion online - Detail Indication:Current nonsmoker (Renamed from Current non-smoker) Start:27-Jun-2017 Instruction Type:Patient Education Patient Instructions Indication:Current nonsmoker (Renamed from Current non-smoker) Start:27-Jun-2017 Instruction Type:Provider Instructions for Treatment How to access health informa tion online Indication:Current nonsmoker (Renamed from Current non-smoker) Start:26-Apr-2017 Instruction Type:Patient Education How to access health informa tion online - Detail Indication:Current nonsmoker (Renamed from Current non-smoker) Start:26-Apr-2017 Instruction Type:Patient Education Patient Instructions Indication:Current nonsmoker (Renamed from Current non-smoker) Start:26-Apr-2017 Instruction Type:Provider Instructions for Treatment How to access health informa tion online Indication:Current nonsmoker (Renamed from Current non-smoker) Start:02-Mar-2017 Instruction Type:Patient Education How to access health informa tion online - Detail Indication:Current nonsmoker (Renamed from Current non-smoker) Start:02-Mar-2017 Instruction Type:Patient Education Patient Instructions Indication:Current nonsmoker (Renamed from Current non-smoker) Start:02-Mar-2017 Instruction Type:Provider Instructions for Treatment Patient Instructions Indication:Current nonsmoker (Renamed from Current non-smoker) Start:01-Feb-2017 Instruction Type:Provider Instructions for Treatment How to access health informa tion online Indication:Current nonsmoker (Renamed from Current non-smoker) Start:01-Feb-2017 Instruction Type:Patient Education How to access health informa tion online - Detail Indication:Current nonsmoker (Renamed from Current non-smoker) Start:01-Feb-2017 Instruction Type:Patient Education How to access health informa tion online Indication:Dysuria Start:25-Jan-2017 Instruction Type:Patient Education How to access health informa tion online - Detail Indication:Dysuria Start:25-Jan-2017 Instruction Type:Patient Education Patient Instructions Indication:Dysuria Start:25-Jan-2017 Instruction Type:Provider Instructions for Treatment How to access health informa tion online Indication:Hypertension Start:28-Dec-2016 Instruction Type:Patient Education How to access health informa tion online - Detail Indication:Hypertension Start:28-Dec-2016 Instruction Type:Patient Education Patient Instructions Indication:Hypertension Start:28-Dec-2016 Instruction Type:Provider Instructions for Treatment How to access health informa tion online Indication:Hypertension Start:14-Dec-2016 Instruction Type:Patient Education How to access health informa tion online - Detail Indication:Hypertension Start:14-Dec-2016 Instruction Type:Patient Education Patient Instructions Indication:Hypertension Start:14-Dec-2016 Instruction Type:Provider Instructions for Treatment How to access health informa tion online Indication:Cough Start:25-Jul-2016 Instruction Type:Patient Education How to access health informa tion online - Detail Indication:Cough Start:25-Jul-2016 Instruction Type:Patient Education Patient Instructions Indication:Cough Start:25-Jul-2016 Instruction Type:Provider Instructions for Treatment [facility]; [facility] Work Phone: Instructions* Name Dates Details Patient Instructions Indication:Non-smoker Start:22-Sep-2022 Instruction Type:Provider Instructions for Treatment How to Access Health Informa tion Online using Patient Portal and [employer]rd [employer] Apps Indication:Non-smoker Start:22-Sep-2022 Instruction Type:Patient Education Patient Instructions Indication:Non-smoker Start:30-Nov-2021 Instruction Type:Provider Instructions for Treatment How to Access Health Informa tion Online using Patient Portal and [employer]rd [employer] Apps Indication:Non-smoker Start:30-Nov-2021 Instruction Type:Patient Education How to access health informa tion online Indication:Non-smoker Start:14-Jun-2020 Instruction Type:Patient Education How to access health informa tion online - Detail Indication:Non-smoker Start:14-Jun-2020 Instruction Type:Patient Education Patient Instructions Indication:Non-smoker Start:14-Jun-2020 Instruction Type:Provider Instructions for Treatment How to access health informa tion online Indication:Non-smoker Start:21-Apr-2020 Instruction Type:Patient Education How to access health informa tion online - Detail Indication:Non-smoker Start:21-Apr-2020 Instruction Type:Patient Education Patient Instructions Indication:Non-smoker Start:21-Apr-2020 Instruction Type:Provider Instructions for Treatment How to access health informa tion online Indication:BMI 28.0-28.9,adult Start:19-Dec-2019 Instruction Type:Patient Education How to access health informa tion online - Detail Indication:BMI 28.0-28.9,adult Start:19-Dec-2019 Instruction Type:Patient Education Patient Instructions Indication:BMI 28.0-28.9,adult Start:19-Dec-2019 Instruction Type:Provider Instructions for Treatment How to access health informa tion online Indication:Non-smoker Start:09-Oct-2019 Instruction Type:Patient Education How to access health informa tion online - Detail Indication:Non-smoker Start:09-Oct-2019 Instruction Type:Patient Education Patient Instructions Indication:Non-smoker Start:09-Oct-2019 Instruction Type:Provider Instructions for Treatment How to access health informa tion online Indication:Non-smoker Start:08-May-2019 Instruction Type:Patient Education How to access health informa tion online - Detail Indication:Non-smoker Start:08-May-2019 Instruction Type:Patient Education Patient Instructions Indication:Non-smoker Start:08-May-2019 Instruction Type:Provider Instructions for Treatment How to access health informa tion online Indication:Non-smoker Start:13-Mar-2019 Instruction Type:Patient Education How to access health informa tion online - Detail Indication:Non-smoker Start:13-Mar-2019 Instruction Type:Patient Education Patient Instructions Indication:Non-smoker Start:13-Mar-2019 Instruction Type:Provider Instructions for Treatment How to access health informa tion online Indication:Non-smoker Start:12-Sep-2018 Instruction Type:Patient Education How to access health informa tion online - Detail Indication:Non-smoker Start:12-Sep-2018 Instruction Type:Patient Education Patient Instructions Indication:Non-smoker Start:12-Sep-2018 Instruction Type:Provider Instructions for Treatment How to access health informa tion online Indication:Current nonsmoker (Renamed from Current non-smoker) Start:22-Aug-2018 Instruction Type:Patient Education How to access health informa tion online - Detail Indication:Current nonsmoker (Renamed from Current non-smoker) Start:22-Aug-2018 Instruction Type:Patient Education Patient Instructions Indication:Current nonsmoker (Renamed from Current non-smoker) Start:22-Aug-2018 Instruction Type:Provider Instructions for Treatment How to access health informa tion online Indication:Current nonsmoker (Renamed from Current non-smoker) Start:26-Apr-2018 Instruction Type:Patient Education How to access health informa tion online - Detail Indication:Current nonsmoker (Renamed from Current non-smoker) Start:26-Apr-2018 Instruction Type:Patient Education Patient Instructions Indication:Current nonsmoker (Renamed from Current non-smoker) Start:26-Apr-2018 Instruction Type:Provider Instructions for Treatment How to access health informa tion online Indication:Current nonsmoker (Renamed from Current non-smoker) Start:19-Apr-2018 Instruction Type:Patient Education How to access health informa tion online - Detail Indication:Current nonsmoker (Renamed from Current non-smoker) Start:19-Apr-2018 Instruction Type:Patient Education Patient Instructions Indication:Current nonsmoker (Renamed from Current non-smoker) Start:19-Apr-2018 Instruction Type:Provider Instructions for Treatment How to access health informa tion online Indication:Current nonsmoker (Renamed from Current non-smoker) Start:27-Jun-2017 Instruction Type:Patient Education How to access health informa tion online - Detail Indication:Current nonsmoker (Renamed from Current non-smoker) Start:27-Jun-2017 Instruction Type:Patient Education Patient Instructions Indication:Current nonsmoker (Renamed from Current non-smoker) Start:27-Jun-2017 Instruction Type:Provider Instructions for Treatment How to access health informa tion online Indication:Current nonsmoker (Renamed from Current non-smoker) Start:26-Apr-2017 Instruction Type:Patient Education How to access health informa tion online - Detail Indication:Current nonsmoker (Renamed from Current non-smoker) Start:26-Apr-2017 Instruction Type:Patient Education Patient Instructions Indication:Current nonsmoker (Renamed from Current non-smoker) Start:26-Apr-2017 Instruction Type:Provider Instructions for Treatment How to access health informa tion online Indication:Current nonsmoker (Renamed from Current non-smoker) Start:02-Mar-2017 Instruction Type:Patient Education How to access health informa tion online - Detail Indication:Current nonsmoker (Renamed from Current non-smoker) Start:02-Mar-2017 Instruction Type:Patient Education Patient Instructions Indication:Current nonsmoker (Renamed from Current non-smoker) Start:02-Mar-2017 Instruction Type:Provider Instructions for Treatment Patient Instructions Indication:Current nonsmoker (Renamed from Current non-smoker) Start:01-Feb-2017 Instruction Type:Provider Instructions for Treatment How to access health informa tion online Indication:Current nonsmoker (Renamed from Current non-smoker) Start:01-Feb-2017 Instruction Type:Patient Education How to access health informa tion online - Detail Indication:Current nonsmoker (Renamed from Current non-smoker) Start:01-Feb-2017 Instruction Type:Patient Education How to access health informa tion online Indication:Dysuria Start:25-Jan-2017 Instruction Type:Patient Education How to access health informa tion online - Detail Indication:Dysuria Start:25-Jan-2017 Instruction Type:Patient Education Patient Instructions Indication:Dysuria Start:25-Jan-2017 Instruction Type:Provider Instructions for Treatment How to access health informa tion online Indication:Hypertension Start:28-Dec-2016 Instruction Type:Patient Education How to access health informa tion online - Detail Indication:Hypertension Start:28-Dec-2016 Instruction Type:Patient Education Patient Instructions Indication:Hypertension Start:28-Dec-2016 Instruction Type:Provider Instructions for Treatment How to access health informa tion online Indication:Hypertension Start:14-Dec-2016 Instruction Type:Patient Education How to access health informa tion online - Detail Indication:Hypertension Start:14-Dec-2016 Instruction Type:Patient Education Patient Instructions Indication:Hypertension Start:14-Dec-2016 Instruction Type:Provider Instructions for Treatment How to access health informa tion online Indication:Cough Start:25-Jul-2016 Instruction Type:Patient Education How to access health informa tion online - Detail Indication:Cough Start:25-Jul-2016 Instruction Type:Patient Education Patient Instructions Indication:Cough Start:25-Jul-2016 Instruction Type:Provider Instructions for Treatment [facility]; [facility] Work Phone: Instructions* Name Dates Details Patient Instructions Indication:Non-smoker Start:22-Sep-2022 Instruction Type:Provider Instructions for Treatment How to Access Health Informa tion Online using Patient Portal and [employer]rd [employer] Apps Indication:Non-smoker Start:22-Sep-2022 Instruction Type:Patient Education Patient Instructions Indication:Non-smoker Start:30-Nov-2021 Instruction Type:Provider Instructions for Treatment How to Access Health Informa tion Online using Patient Portal and [employer]rd [employer] Apps Indication:Non-smoker Start:30-Nov-2021 Instruction Type:Patient Education How to access health informa tion online Indication:Non-smoker Start:14-Jun-2020 Instruction Type:Patient Education How to access health informa tion online - Detail Indication:Non-smoker Start:14-Jun-2020 Instruction Type:Patient Education Patient Instructions Indication:Non-smoker Start:14-Jun-2020 Instruction Type:Provider Instructions for Treatment How to access health informa tion online Indication:Non-smoker Start:21-Apr-2020 Instruction Type:Patient Education How to access health informa tion online - Detail Indication:Non-smoker Start:21-Apr-2020 Instruction Type:Patient Education Patient Instructions Indication:Non-smoker Start:21-Apr-2020 Instruction Type:Provider Instructions for Treatment How to access health informa tion online Indication:BMI 28.0-28.9,adult Start:19-Dec-2019 Instruction Type:Patient Education How to access health informa tion online - Detail Indication:BMI 28.0-28.9,adult Start:19-Dec-2019 Instruction Type:Patient Education Patient Instructions Indication:BMI 28.0-28.9,adult Start:19-Dec-2019 Instruction Type:Provider Instructions for Treatment How to access health informa tion online Indication:Non-smoker Start:09-Oct-2019 Instruction Type:Patient Education How to access health informa tion online - Detail Indication:Non-smoker Start:09-Oct-2019 Instruction Type:Patient Education Patient Instructions Indication:Non-smoker Start:09-Oct-2019 Instruction Type:Provider Instructions for Treatment How to access health informa tion online Indication:Non-smoker Start:08-May-2019 Instruction Type:Patient Education How to access health informa tion online - Detail Indication:Non-smoker Start:08-May-2019 Instruction Type:Patient Education Patient Instructions Indication:Non-smoker Start:08-May-2019 Instruction Type:Provider Instructions for Treatment How to access health informa tion online Indication:Non-smoker Start:13-Mar-2019 Instruction Type:Patient Education How to access health informa tion online - Detail Indication:Non-smoker Start:13-Mar-2019 Instruction Type:Patient Education Patient Instructions Indication:Non-smoker Start:13-Mar-2019 Instruction Type:Provider Instructions for Treatment How to access health informa tion online Indication:Non-smoker Start:12-Sep-2018 Instruction Type:Patient Education How to access health informa tion online - Detail Indication:Non-smoker Start:12-Sep-2018 Instruction Type:Patient Education Patient Instructions Indication:Non-smoker Start:12-Sep-2018 Instruction Type:Provider Instructions for Treatment How to access health informa tion online Indication:Current nonsmoker (Renamed from Current non-smoker) Start:22-Aug-2018 Instruction Type:Patient Education How to access health informa tion online - Detail Indication:Current nonsmoker (Renamed from Current non-smoker) Start:22-Aug-2018 Instruction Type:Patient Education Patient Instructions Indication:Current nonsmoker (Renamed from Current non-smoker) Start:22-Aug-2018 Instruction Type:Provider Instructions for Treatment How to access health informa tion online Indication:Current nonsmoker (Renamed from Current non-smoker) Start:26-Apr-2018 Instruction Type:Patient Education How to access health informa tion online - Detail Indication:Current nonsmoker (Renamed from Current non-smoker) Start:26-Apr-2018 Instruction Type:Patient Education Patient Instructions Indication:Current nonsmoker (Renamed from Current non-smoker) Start:26-Apr-2018 Instruction Type:Provider Instructions for Treatment How to access health informa tion online Indication:Current nonsmoker (Renamed from Current non-smoker) Start:19-Apr-2018 Instruction Type:Patient Education How to access health informa tion online - Detail Indication:Current nonsmoker (Renamed from Current non-smoker) Start:19-Apr-2018 Instruction Type:Patient Education Patient Instructions Indication:Current nonsmoker (Renamed from Current non-smoker) Start:19-Apr-2018 Instruction Type:Provider Instructions for Treatment How to access health informa tion online Indication:Current nonsmoker (Renamed from Current non-smoker) Start:27-Jun-2017 Instruction Type:Patient Education How to access health informa tion online - Detail Indication:Current nonsmoker (Renamed from Current non-smoker) Start:27-Jun-2017 Instruction Type:Patient Education Patient Instructions Indication:Current nonsmoker (Renamed from Current non-smoker) Start:27-Jun-2017 Instruction Type:Provider Instructions for Treatment How to access health informa tion online Indication:Current nonsmoker (Renamed from Current non-smoker) Start:26-Apr-2017 Instruction Type:Patient Education How to access health informa tion online - Detail Indication:Current nonsmoker (Renamed from Current non-smoker) Start:26-Apr-2017 Instruction Type:Patient Education Patient Instructions Indication:Current nonsmoker (Renamed from Current non-smoker) Start:26-Apr-2017 Instruction Type:Provider Instructions for Treatment How to access health informa tion online Indication:Current nonsmoker (Renamed from Current non-smoker) Start:02-Mar-2017 Instruction Type:Patient Education How to access health informa tion online - Detail Indication:Current nonsmoker (Renamed from Current non-smoker) Start:02-Mar-2017 Instruction Type:Patient Education Patient Instructions Indication:Current nonsmoker (Renamed from Current non-smoker) Start:02-Mar-2017 Instruction Type:Provider Instructions for Treatment Patient Instructions Indication:Current nonsmoker (Renamed from Current non-smoker) Start:01-Feb-2017 Instruction Type:Provider Instructions for Treatment How to access health informa tion online Indication:Current nonsmoker (Renamed from Current non-smoker) Start:01-Feb-2017 Instruction Type:Patient Education How to access health informa tion online - Detail Indication:Current nonsmoker (Renamed from Current non-smoker) Start:01-Feb-2017 Instruction Type:Patient Education How to access health informa tion online Indication:Dysuria Start:25-Jan-2017 Instruction Type:Patient Education How to access health informa tion online - Detail Indication:Dysuria Start:25-Jan-2017 Instruction Type:Patient Education Patient Instructions Indication:Dysuria Start:25-Jan-2017 Instruction Type:Provider Instructions for Treatment How to access health informa tion online Indication:Hypertension Start:28-Dec-2016 Instruction Type:Patient Education How to access health informa tion online - Detail Indication:Hypertension Start:28-Dec-2016 Instruction Type:Patient Education Patient Instructions Indication:Hypertension Start:28-Dec-2016 Instruction Type:Provider Instructions for Treatment How to access health informa tion online Indication:Hypertension Start:14-Dec-2016 Instruction Type:Patient Education How to access health informa tion online - Detail Indication:Hypertension Start:14-Dec-2016 Instruction Type:Patient Education Patient Instructions Indication:Hypertension Start:14-Dec-2016 Instruction Type:Provider Instructions for Treatment How to access health informa tion online Indication:Cough Start:25-Jul-2016 Instruction Type:Patient Education How to access health informa tion online - Detail Indication:Cough Start:25-Jul-2016 Instruction Type:Patient Education Patient Instructions Indication:Cough Start:25-Jul-2016 Instruction Type:Provider Instructions for Treatment [facility]; [facility] Work Phone: Instructions* Name Dates Details Patient Instructions Indication:BMI 27.0-27.9,adult Start:04-Jan-2023 Instruction Type:Provider Instructions for Treatment How to Access Health Informa tion Online using Patient Portal and [employer]rd [employer] Apps Indication:BMI 27.0-27.9,adult Start:04-Jan-2023 Instruction Type:Patient Education Patient Instructions Indication:Non-smoker Start:22-Sep-2022 Instruction Type:Provider Instructions for Treatment How to Access Health Informa tion Online using Patient Portal and [employer]rd [employer] Apps Indication:Non-smoker Start:22-Sep-2022 Instruction Type:Patient Education Patient Instructions Indication:Non-smoker Start:30-Nov-2021 Instruction Type:Provider Instructions for Treatment How to Access Health Informa tion Online using Patient Portal and [employer]rd [employer] Apps Indication:Non-smoker Start:30-Nov-2021 Instruction Type:Patient Education How to access health informa tion online Indication:Non-smoker Start:14-Jun-2020 Instruction Type:Patient Education How to access health informa tion online - Detail Indication:Non-smoker Start:14-Jun-2020 Instruction Type:Patient Education Patient Instructions Indication:Non-smoker Start:14-Jun-2020 Instruction Type:Provider Instructions for Treatment How to access health informa tion online Indication:Non-smoker Start:21-Apr-2020 Instruction Type:Patient Education How to access health informa tion online - Detail Indication:Non-smoker Start:21-Apr-2020 Instruction Type:Patient Education Patient Instructions Indication:Non-smoker Start:21-Apr-2020 Instruction Type:Provider Instructions for Treatment How to access health informa tion online Indication:BMI 28.0-28.9,adult Start:19-Dec-2019 Instruction Type:Patient Education How to access health informa tion online - Detail Indication:BMI 28.0-28.9,adult Start:19-Dec-2019 Instruction Type:Patient Education Patient Instructions Indication:BMI 28.0-28.9,adult Start:19-Dec-2019 Instruction Type:Provider Instructions for Treatment How to access health informa tion online Indication:Non-smoker Start:09-Oct-2019 Instruction Type:Patient Education How to access health informa tion online - Detail Indication:Non-smoker Start:09-Oct-2019 Instruction Type:Patient Education Patient Instructions Indication:Non-smoker Start:09-Oct-2019 Instruction Type:Provider Instructions for Treatment How to access health informa tion online Indication:Non-smoker Start:08-May-2019 Instruction Type:Patient Education How to access health informa tion online - Detail Indication:Non-smoker Start:08-May-2019 Instruction Type:Patient Education Patient Instructions Indication:Non-smoker Start:08-May-2019 Instruction Type:Provider Instructions for Treatment How to access health informa tion online Indication:Non-smoker Start:13-Mar-2019 Instruction Type:Patient Education How to access health informa tion online - Detail Indication:Non-smoker Start:13-Mar-2019 Instruction Type:Patient Education Patient Instructions Indication:Non-smoker Start:13-Mar-2019 Instruction Type:Provider Instructions for Treatment How to access health informa tion online Indication:Non-smoker Start:12-Sep-2018 Instruction Type:Patient Education How to access health informa tion online - Detail Indication:Non-smoker Start:12-Sep-2018 Instruction Type:Patient Education Patient Instructions Indication:Non-smoker Start:12-Sep-2018 Instruction Type:Provider Instructions for Treatment How to access health informa tion online Indication:Current nonsmoker (Renamed from Current non-smoker) Start:22-Aug-2018 Instruction Type:Patient Education How to access health informa tion online - Detail Indication:Current nonsmoker (Renamed from Current non-smoker) Start:22-Aug-2018 Instruction Type:Patient Education Patient Instructions Indication:Current nonsmoker (Renamed from Current non-smoker) Start:22-Aug-2018 Instruction Type:Provider Instructions for Treatment How to access health informa tion online Indication:Current nonsmoker (Renamed from Current non-smoker) Start:26-Apr-2018 Instruction Type:Patient Education How to access health informa tion online - Detail Indication:Current nonsmoker (Renamed from Current non-smoker) Start:26-Apr-2018 Instruction Type:Patient Education Patient Instructions Indication:Current nonsmoker (Renamed from Current non-smoker) Start:26-Apr-2018 Instruction Type:Provider Instructions for Treatment How to access health informa tion online Indication:Current nonsmoker (Renamed from Current non-smoker) Start:19-Apr-2018 Instruction Type:Patient Education How to access health informa tion online - Detail Indication:Current nonsmoker (Renamed from Current non-smoker) Start:19-Apr-2018 Instruction Type:Patient Education Patient Instructions Indication:Current nonsmoker (Renamed from Current non-smoker) Start:19-Apr-2018 Instruction Type:Provider Instructions for Treatment How to access health informa tion online Indication:Current nonsmoker (Renamed from Current non-smoker) Start:27-Jun-2017 Instruction Type:Patient Education How to access health informa tion online - Detail Indication:Current nonsmoker (Renamed from Current non-smoker) Start:27-Jun-2017 Instruction Type:Patient Education Patient Instructions Indication:Current nonsmoker (Renamed from Current non-smoker) Start:27-Jun-2017 Instruction Type:Provider Instructions for Treatment How to access health informa tion online Indication:Current nonsmoker (Renamed from Current non-smoker) Start:26-Apr-2017 Instruction Type:Patient Education How to access health informa tion online - Detail Indication:Current nonsmoker (Renamed from Current non-smoker) Start:26-Apr-2017 Instruction Type:Patient Education Patient Instructions Indication:Current nonsmoker (Renamed from Current non-smoker) Start:26-Apr-2017 Instruction Type:Provider Instructions for Treatment How to access health informa tion online Indication:Current nonsmoker (Renamed from Current non-smoker) Start:02-Mar-2017 Instruction Type:Patient Education How to access health informa tion online - Detail Indication:Current nonsmoker (Renamed from Current non-smoker) Start:02-Mar-2017 Instruction Type:Patient Education Patient Instructions Indication:Current nonsmoker (Renamed from Current non-smoker) Start:02-Mar-2017 Instruction Type:Provider Instructions for Treatment Patient Instructions Indication:Current nonsmoker (Renamed from Current non-smoker) Start:01-Feb-2017 Instruction Type:Provider Instructions for Treatment How to access health informa tion online Indication:Current nonsmoker (Renamed from Current non-smoker) Start:01-Feb-2017 Instruction Type:Patient Education How to access health informa tion online - Detail Indication:Current nonsmoker (Renamed from Current non-smoker) Start:01-Feb-2017 Instruction Type:Patient Education How to access health informa tion online Indication:Dysuria Start:25-Jan-2017 Instruction Type:Patient Education How to access health informa tion online - Detail Indication:Dysuria Start:25-Jan-2017 Instruction Type:Patient Education Patient Instructions Indication:Dysuria Start:25-Jan-2017 Instruction Type:Provider Instructions for Treatment How to access health informa tion online Indication:Hypertension Start:28-Dec-2016 Instruction Type:Patient Education How to access health informa tion online - Detail Indication:Hypertension Start:28-Dec-2016 Instruction Type:Patient Education Patient Instructions Indication:Hypertension Start:28-Dec-2016 Instruction Type:Provider Instructions for Treatment How to access health informa tion online Indication:Hypertension Start:14-Dec-2016 Instruction Type:Patient Education How to access health informa tion online - Detail Indication:Hypertension Start:14-Dec-2016 Instruction Type:Patient Education Patient Instructions Indication:Hypertension Start:14-Dec-2016 Instruction Type:Provider Instructions for Treatment How to access health informa tion online Indication:Cough Start:25-Jul-2016 Instruction Type:Patient Education How to access health informa tion online - Detail Indication:Cough Start:25-Jul-2016 Instruction Type:Patient Education Patient Instructions Indication:Cough Start:25-Jul-2016 Instruction Type:Provider Instructions for Treatment [facility]; [facility] Work Phone: Instructions* Name Dates Details Patient Instructions Indication:BMI 27.0-27.9,adult Start:04-Jan-2023 Instruction Type:Provider Instructions for Treatment How to Access Health Informa tion Online using Patient Portal and [employer]rd [employer] Apps Indication:BMI 27.0-27.9,adult Start:04-Jan-2023 Instruction Type:Patient Education Patient Instructions Indication:Non-smoker Start:22-Sep-2022 Instruction Type:Provider Instructions for Treatment How to Access Health Informa tion Online using Patient Portal and [employer]rd [employer] Apps Indication:Non-smoker Start:22-Sep-2022 Instruction Type:Patient Education Patient Instructions Indication:Non-smoker Start:30-Nov-2021 Instruction Type:Provider Instructions for Treatment How to Access Health Informa tion Online using Patient Portal and [employer]rd [employer] Apps Indication:Non-smoker Start:30-Nov-2021 Instruction Type:Patient Education How to access health informa tion online Indication:Non-smoker Start:14-Jun-2020 Instruction Type:Patient Education How to access health informa tion online - Detail Indication:Non-smoker Start:14-Jun-2020 Instruction Type:Patient Education Patient Instructions Indication:Non-smoker Start:14-Jun-2020 Instruction Type:Provider Instructions for Treatment How to access health informa tion online Indication:Non-smoker Start:21-Apr-2020 Instruction Type:Patient Education How to access health informa tion online - Detail Indication:Non-smoker Start:21-Apr-2020 Instruction Type:Patient Education Patient Instructions Indication:Non-smoker Start:21-Apr-2020 Instruction Type:Provider Instructions for Treatment How to access health informa tion online Indication:BMI 28.0-28.9,adult Start:19-Dec-2019 Instruction Type:Patient Education How to access health informa tion online - Detail Indication:BMI 28.0-28.9,adult Start:19-Dec-2019 Instruction Type:Patient Education Patient Instructions Indication:BMI 28.0-28.9,adult Start:19-Dec-2019 Instruction Type:Provider Instructions for Treatment How to access health informa tion online Indication:Non-smoker Start:09-Oct-2019 Instruction Type:Patient Education How to access health informa tion online - Detail Indication:Non-smoker Start:09-Oct-2019 Instruction Type:Patient Education Patient Instructions Indication:Non-smoker Start:09-Oct-2019 Instruction Type:Provider Instructions for Treatment How to access health informa tion online Indication:Non-smoker Start:08-May-2019 Instruction Type:Patient Education How to access health informa tion online - Detail Indication:Non-smoker Start:08-May-2019 Instruction Type:Patient Education Patient Instructions Indication:Non-smoker Start:08-May-2019 Instruction Type:Provider Instructions for Treatment How to access health informa tion online Indication:Non-smoker Start:13-Mar-2019 Instruction Type:Patient Education How to access health informa tion online - Detail Indication:Non-smoker Start:13-Mar-2019 Instruction Type:Patient Education Patient Instructions Indication:Non-smoker Start:13-Mar-2019 Instruction Type:Provider Instructions for Treatment How to access health informa tion online Indication:Non-smoker Start:12-Sep-2018 Instruction Type:Patient Education How to access health informa tion online - Detail Indication:Non-smoker Start:12-Sep-2018 Instruction Type:Patient Education Patient Instructions Indication:Non-smoker Start:12-Sep-2018 Instruction Type:Provider Instructions for Treatment How to access health informa tion online Indication:Current nonsmoker (Renamed from Current non-smoker) Start:22-Aug-2018 Instruction Type:Patient Education How to access health informa tion online - Detail Indication:Current nonsmoker (Renamed from Current non-smoker) Start:22-Aug-2018 Instruction Type:Patient Education Patient Instructions Indication:Current nonsmoker (Renamed from Current non-smoker) Start:22-Aug-2018 Instruction Type:Provider Instructions for Treatment How to access health informa tion online Indication:Current nonsmoker (Renamed from Current non-smoker) Start:26-Apr-2018 Instruction Type:Patient Education How to access health informa tion online - Detail Indication:Current nonsmoker (Renamed from Current non-smoker) Start:26-Apr-2018 Instruction Type:Patient Education Patient Instructions Indication:Current nonsmoker (Renamed from Current non-smoker) Start:26-Apr-2018 Instruction Type:Provider Instructions for Treatment How to access health informa tion online Indication:Current nonsmoker (Renamed from Current non-smoker) Start:19-Apr-2018 Instruction Type:Patient Education How to access health informa tion online - Detail Indication:Current nonsmoker (Renamed from Current non-smoker) Start:19-Apr-2018 Instruction Type:Patient Education Patient Instructions Indication:Current nonsmoker (Renamed from Current non-smoker) Start:19-Apr-2018 Instruction Type:Provider Instructions for Treatment How to access health informa tion online Indication:Current nonsmoker (Renamed from Current non-smoker) Start:27-Jun-2017 Instruction Type:Patient Education How to access health informa tion online - Detail Indication:Current nonsmoker (Renamed from Current non-smoker) Start:27-Jun-2017 Instruction Type:Patient Education Patient Instructions Indication:Current nonsmoker (Renamed from Current non-smoker) Start:27-Jun-2017 Instruction Type:Provider Instructions for Treatment How to access health informa tion online Indication:Current nonsmoker (Renamed from Current non-smoker) Start:26-Apr-2017 Instruction Type:Patient Education How to access health informa tion online - Detail Indication:Current nonsmoker (Renamed from Current non-smoker) Start:26-Apr-2017 Instruction Type:Patient Education Patient Instructions Indication:Current nonsmoker (Renamed from Current non-smoker) Start:26-Apr-2017 Instruction Type:Provider Instructions for Treatment How to access health informa tion online Indication:Current nonsmoker (Renamed from Current non-smoker) Start:02-Mar-2017 Instruction Type:Patient Education How to access health informa tion online - Detail Indication:Current nonsmoker (Renamed from Current non-smoker) Start:02-Mar-2017 Instruction Type:Patient Education Patient Instructions Indication:Current nonsmoker (Renamed from Current non-smoker) Start:02-Mar-2017 Instruction Type:Provider Instructions for Treatment Patient Instructions Indication:Current nonsmoker (Renamed from Current non-smoker) Start:01-Feb-2017 Instruction Type:Provider Instructions for Treatment How to access health informa tion online Indication:Current nonsmoker (Renamed from Current non-smoker) Start:01-Feb-2017 Instruction Type:Patient Education How to access health informa tion online - Detail Indication:Current nonsmoker (Renamed from Current non-smoker) Start:01-Feb-2017 Instruction Type:Patient Education How to access health informa tion online Indication:Dysuria Start:25-Jan-2017 Instruction Type:Patient Education How to access health informa tion online - Detail Indication:Dysuria Start:25-Jan-2017 Instruction Type:Patient Education Patient Instructions Indication:Dysuria Start:25-Jan-2017 Instruction Type:Provider Instructions for Treatment How to access health informa tion online Indication:Hypertension Start:28-Dec-2016 Instruction Type:Patient Education How to access health informa tion online - Detail Indication:Hypertension Start:28-Dec-2016 Instruction Type:Patient Education Patient Instructions Indication:Hypertension Start:28-Dec-2016 Instruction Type:Provider Instructions for Treatment How to access health informa tion online Indication:Hypertension Start:14-Dec-2016 Instruction Type:Patient Education How to access health informa tion online - Detail Indication:Hypertension Start:14-Dec-2016 Instruction Type:Patient Education Patient Instructions Indication:Hypertension Start:14-Dec-2016 Instruction Type:Provider Instructions for Treatment How to access health informa tion online Indication:Cough Start:25-Jul-2016 Instruction Type:Patient Education How to access health informa tion online - Detail Indication:Cough Start:25-Jul-2016 Instruction Type:Patient Education Patient Instructions Indication:Cough Start:25-Jul-2016 Instruction Type:Provider Instructions for Treatment [facility]; [facility] Work Phone: Instructions* Name Dates Details Patient Instructions Indication:BMI 27.0-27.9,adult Start:04-Jan-2023 Instruction Type:Provider Instructions for Treatment How to Access Health Informa tion Online using Patient Portal and [employer]rd [employer] Apps Indication:BMI 27.0-27.9,adult Start:04-Jan-2023 Instruction Type:Patient Education Patient Instructions Indication:Non-smoker Start:22-Sep-2022 Instruction Type:Provider Instructions for Treatment How to Access Health Informa tion Online using Patient Portal and [employer]rd [employer] Apps Indication:Non-smoker Start:22-Sep-2022 Instruction Type:Patient Education Patient Instructions Indication:Non-smoker Start:30-Nov-2021 Instruction Type:Provider Instructions for Treatment How to Access Health Informa tion Online using Patient Portal and [employer] Apps Indication:Non-smoker Start:30-Nov-2021 Instruction Type:Patient Education How to access health informa tion online Indication:Non-smoker Start:14-Jun-2020 Instruction Type:Patient Education How to access health informa tion online - Detail Indication:Non-smoker Start:14-Jun-2020 Instruction Type:Patient Education Patient Instructions Indication:Non-smoker Start:14-Jun-2020 Instruction Type:Provider Instructions for Treatment How to access health informa tion online Indication:Non-smoker Start:21-Apr-2020 Instruction Type:Patient Education How to access health informa tion online - Detail Indication:Non-smoker Start:21-Apr-2020 Instruction Type:Patient Education Patient Instructions Indication:Non-smoker Start:21-Apr-2020 Instruction Type:Provider Instructions for Treatment How to access health informa tion online Indication:BMI 28.0-28.9,adult Start:19-Dec-2019 Instruction Type:Patient Education How to access health informa tion online - Detail Indication:BMI 28.0-28.9,adult Start:19-Dec-2019 Instruction Type:Patient Education Patient Instructions Indication:BMI 28.0-28.9,adult Start:19-Dec-2019 Instruction Type:Provider Instructions for Treatment How to access health informa tion online Indication:Non-smoker Start:09-Oct-2019 Instruction Type:Patient Education How to access health informa tion online - Detail Indication:Non-smoker Start:09-Oct-2019 Instruction Type:Patient Education Patient Instructions Indication:Non-smoker Start:09-Oct-2019 Instruction Type:Provider Instructions for Treatment How to access health informa tion online Indication:Non-smoker Start:08-May-2019 Instruction Type:Patient Education How to access health informa tion online - Detail Indication:Non-smoker Start:08-May-2019 Instruction Type:Patient Education Patient Instructions Indication:Non-smoker Start:08-May-2019 Instruction Type:Provider Instructions for Treatment How to access health informa tion online Indication:Non-smoker Start:13-Mar-2019 Instruction Type:Patient Education How to access health informa tion online - Detail Indication:Non-smoker Start:13-Mar-2019 Instruction Type:Patient Education Patient Instructions Indication:Non-smoker Start:13-Mar-2019 Instruction Type:Provider Instructions for Treatment How to access health informa tion online Indication:Non-smoker Start:12-Sep-2018 Instruction Type:Patient Education How to access health informa tion online - Detail Indication:Non-smoker Start:12-Sep-2018 Instruction Type:Patient Education Patient Instructions Indication:Non-smoker Start:12-Sep-2018 Instruction Type:Provider Instructions for Treatment How to access health informa tion online Indication:Current nonsmoker (Renamed from Current non-smoker) Start:22-Aug-2018 Instruction Type:Patient Education How to access health informa tion online - Detail Indication:Current nonsmoker (Renamed from Current non-smoker) Start:22-Aug-2018 Instruction Type:Patient Education Patient Instructions Indication:Current nonsmoker (Renamed from Current non-smoker) Start:22-Aug-2018 Instruction Type:Provider Instructions for Treatment How to access health informa tion online Indication:Current nonsmoker (Renamed from Current non-smoker) Start:26-Apr-2018 Instruction Type:Patient Education How to access health informa tion online - Detail Indication:Current nonsmoker (Renamed from Current non-smoker) Start:26-Apr-2018 Instruction Type:Patient Education Patient Instructions Indication:Current nonsmoker (Renamed from Current non-smoker) Start:26-Apr-2018 Instruction Type:Provider Instructions for Treatment How to access health informa tion online Indication:Current nonsmoker (Renamed from Current non-smoker) Start:19-Apr-2018 Instruction Type:Patient Education How to access health informa tion online - Detail Indication:Current nonsmoker (Renamed from Current non-smoker) Start:19-Apr-2018 Instruction Type:Patient Education Patient Instructions Indication:Current nonsmoker (Renamed from Current non-smoker) Start:19-Apr-2018 Instruction Type:Provider Instructions for Treatment How to access health informa tion online Indication:Current nonsmoker (Renamed from Current non-smoker) Start:27-Jun-2017 Instruction Type:Patient Education How to access health informa tion online - Detail Indication:Current nonsmoker (Renamed from Current non-smoker) Start:27-Jun-2017 Instruction Type:Patient Education Patient Instructions Indication:Current nonsmoker (Renamed from Current non-smoker) Start:27-Jun-2017 Instruction Type:Provider Instructions for Treatment How to access health informa tion online Indication:Current nonsmoker (Renamed from Current non-smoker) Start:26-Apr-2017 Instruction Type:Patient Education How to access health informa tion online - Detail Indication:Current nonsmoker (Renamed from Current non-smoker) Start:26-Apr-2017 Instruction Type:Patient Education Patient Instructions Indication:Current nonsmoker (Renamed from Current non-smoker) Start:26-Apr-2017 Instruction Type:Provider Instructions for Treatment How to access health informa tion online Indication:Current nonsmoker (Renamed from Current non-smoker) Start:02-Mar-2017 Instruction Type:Patient Education How to access health informa tion online - Detail Indication:Current nonsmoker (Renamed from Current non-smoker) Start:02-Mar-2017 Instruction Type:Patient Education Patient Instructions Indication:Current nonsmoker (Renamed from Current non-smoker) Start:02-Mar-2017 Instruction Type:Provider Instructions for Treatment Patient Instructions Indication:Current nonsmoker (Renamed from Current non-smoker) Start:01-Feb-2017 Instruction Type:Provider Instructions for Treatment How to access health informa tion online Indication:Current nonsmoker (Renamed from Current non-smoker) Start:01-Feb-2017 Instruction Type:Patient Education How to access health informa tion online - Detail Indication:Current nonsmoker (Renamed from Current non-smoker) Start:01-Feb-2017 Instruction Type:Patient Education How to access health informa tion online Indication:Dysuria Start:25-Jan-2017 Instruction Type:Patient Education How to access health informa tion online - Detail Indication:Dysuria Start:25-Jan-2017 Instruction Type:Patient Education Patient Instructions Indication:Dysuria Start:25-Jan-2017 Instruction Type:Provider Instructions for Treatment How to access health informa tion online Indication:Hypertension Start:28-Dec-2016 Instruction Type:Patient Education How to access health informa tion online - Detail Indication:Hypertension Start:28-Dec-2016 Instruction Type:Patient Education Patient Instructions Indication:Hypertension Start:28-Dec-2016 Instruction Type:Provider Instructions for Treatment How to access health informa tion online Indication:Hypertension Start:14-Dec-2016 Instruction Type:Patient Education How to access health informa tion online - Detail Indication:Hypertension Start:14-Dec-2016 Instruction Type:Patient Education Patient Instructions Indication:Hypertension Start:14-Dec-2016 Instruction Type:Provider Instructions for Treatment How to access health informa tion online Indication:Cough Start:25-Jul-2016 Instruction Type:Patient Education How to access health informa tion online - Detail Indication:Cough Start:25-Jul-2016 Instruction Type:Patient Education Patient Instructions Indication:Cough Start:25-Jul-2016 Instruction Type:Provider Instructions for Treatment [facility]; [facility] Work Phone: Instructions* Name Dates Details Patient Instructions Indication:BMI 27.0-27.9,adult Start:04-Jan-2023 Instruction Type:Provider Instructions for Treatment How to Access Health Informa tion Online using Patient Portal and [employer]rd [employer] Apps Indication:BMI 27.0-27.9,adult Start:04-Jan-2023 Instruction Type:Patient Education Patient Instructions Indication:Non-smoker Start:22-Sep-2022 Instruction Type:Provider Instructions for Treatment How to Access Health Informa tion Online using Patient Portal and [employer]rd [employer] Apps Indication:Non-smoker Start:22-Sep-2022 Instruction Type:Patient Education Patient Instructions Indication:Non-smoker Start:30-Nov-2021 Instruction Type:Provider Instructions for Treatment How to Access Health Informa tion Online using Patient Portal and [employer]rd [employer] Apps Indication:Non-smoker Start:30-Nov-2021 Instruction Type:Patient Education How to access health informa tion online Indication:Non-smoker Start:14-Jun-2020 Instruction Type:Patient Education How to access health informa tion online - Detail Indication:Non-smoker Start:14-Jun-2020 Instruction Type:Patient Education Patient Instructions Indication:Non-smoker Start:14-Jun-2020 Instruction Type:Provider Instructions for Treatment How to access health informa tion online Indication:Non-smoker Start:21-Apr-2020 Instruction Type:Patient Education How to access health informa tion online - Detail Indication:Non-smoker Start:21-Apr-2020 Instruction Type:Patient Education Patient Instructions Indication:Non-smoker Start:21-Apr-2020 Instruction Type:Provider Instructions for Treatment How to access health informa tion online Indication:BMI 28.0-28.9,adult Start:19-Dec-2019 Instruction Type:Patient Education How to access health informa tion online - Detail Indication:BMI 28.0-28.9,adult Start:19-Dec-2019 Instruction Type:Patient Education Patient Instructions Indication:BMI 28.0-28.9,adult Start:19-Dec-2019 Instruction Type:Provider Instructions for Treatment How to access health informa tion online Indication:Non-smoker Start:09-Oct-2019 Instruction Type:Patient Education How to access health informa tion online - Detail Indication:Non-smoker Start:09-Oct-2019 Instruction Type:Patient Education Patient Instructions Indication:Non-smoker Start:09-Oct-2019 Instruction Type:Provider Instructions for Treatment How to access health informa tion online Indication:Non-smoker Start:08-May-2019 Instruction Type:Patient Education How to access health informa tion online - Detail Indication:Non-smoker Start:08-May-2019 Instruction Type:Patient Education Patient Instructions Indication:Non-smoker Start:08-May-2019 Instruction Type:Provider Instructions for Treatment How to access health informa tion online Indication:Non-smoker Start:13-Mar-2019 Instruction Type:Patient Education How to access health informa tion online - Detail Indication:Non-smoker Start:13-Mar-2019 Instruction Type:Patient Education Patient Instructions Indication:Non-smoker Start:13-Mar-2019 Instruction Type:Provider Instructions for Treatment How to access health informa tion online Indication:Non-smoker Start:12-Sep-2018 Instruction Type:Patient Education How to access health informa tion online - Detail Indication:Non-smoker Start:12-Sep-2018 Instruction Type:Patient Education Patient Instructions Indication:Non-smoker Start:12-Sep-2018 Instruction Type:Provider Instructions for Treatment How to access health informa tion online Indication:Current nonsmoker (Renamed from Current non-smoker) Start:22-Aug-2018 Instruction Type:Patient Education How to access health informa tion online - Detail Indication:Current nonsmoker (Renamed from Current non-smoker) Start:22-Aug-2018 Instruction Type:Patient Education Patient Instructions Indication:Current nonsmoker (Renamed from Current non-smoker) Start:22-Aug-2018 Instruction Type:Provider Instructions for Treatment How to access health informa tion online Indication:Current nonsmoker (Renamed from Current non-smoker) Start:26-Apr-2018 Instruction Type:Patient Education How to access health informa tion online - Detail Indication:Current nonsmoker (Renamed from Current non-smoker) Start:26-Apr-2018 Instruction Type:Patient Education Patient Instructions Indication:Current nonsmoker (Renamed from Current non-smoker) Start:26-Apr-2018 Instruction Type:Provider Instructions for Treatment How to access health informa tion online Indication:Current nonsmoker (Renamed from Current non-smoker) Start:19-Apr-2018 Instruction Type:Patient Education How to access health informa tion online - Detail Indication:Current nonsmoker (Renamed from Current non-smoker) Start:19-Apr-2018 Instruction Type:Patient Education Patient Instructions Indication:Current nonsmoker (Renamed from Current non-smoker) Start:19-Apr-2018 Instruction Type:Provider Instructions for Treatment How to access health informa tion online Indication:Current nonsmoker (Renamed from Current non-smoker) Start:27-Jun-2017 Instruction Type:Patient Education How to access health informa tion online - Detail Indication:Current nonsmoker (Renamed from Current non-smoker) Start:27-Jun-2017 Instruction Type:Patient Education Patient Instructions Indication:Current nonsmoker (Renamed from Current non-smoker) Start:27-Jun-2017 Instruction Type:Provider Instructions for Treatment How to access health informa tion online Indication:Current nonsmoker (Renamed from Current non-smoker) Start:26-Apr-2017 Instruction Type:Patient Education How to access health informa tion online - Detail Indication:Current nonsmoker (Renamed from Current non-smoker) Start:26-Apr-2017 Instruction Type:Patient Education Patient Instructions Indication:Current nonsmoker (Renamed from Current non-smoker) Start:26-Apr-2017 Instruction Type:Provider Instructions for Treatment How to access health informa tion online Indication:Current nonsmoker (Renamed from Current non-smoker) Start:02-Mar-2017 Instruction Type:Patient Education How to access health informa tion online - Detail Indication:Current nonsmoker (Renamed from Current non-smoker) Start:02-Mar-2017 Instruction Type:Patient Education Patient Instructions Indication:Current nonsmoker (Renamed from Current non-smoker) Start:02-Mar-2017 Instruction Type:Provider Instructions for Treatment Patient Instructions Indication:Current nonsmoker (Renamed from Current non-smoker) Start:01-Feb-2017 Instruction Type:Provider Instructions for Treatment How to access health informa tion online Indication:Current nonsmoker (Renamed from Current non-smoker) Start:01-Feb-2017 Instruction Type:Patient Education How to access health informa tion online - Detail Indication:Current nonsmoker (Renamed from Current non-smoker) Start:01-Feb-2017 Instruction Type:Patient Education How to access health informa tion online Indication:Dysuria Start:25-Jan-2017 Instruction Type:Patient Education How to access health informa tion online - Detail Indication:Dysuria Start:25-Jan-2017 Instruction Type:Patient Education Patient Instructions Indication:Dysuria Start:25-Jan-2017 Instruction Type:Provider Instructions for Treatment How to access health informa tion online Indication:Hypertension Start:28-Dec-2016 Instruction Type:Patient Education How to access health informa tion online - Detail Indication:Hypertension Start:28-Dec-2016 Instruction Type:Patient Education Patient Instructions Indication:Hypertension Start:28-Dec-2016 Instruction Type:Provider Instructions for Treatment How to access health informa tion online Indication:Hypertension Start:14-Dec-2016 Instruction Type:Patient Education How to access health informa tion online - Detail Indication:Hypertension Start:14-Dec-2016 Instruction Type:Patient Education Patient Instructions Indication:Hypertension Start:14-Dec-2016 Instruction Type:Provider Instructions for Treatment How to access health informa tion online Indication:Cough Start:25-Jul-2016 Instruction Type:Patient Education How to access health informa tion online - Detail Indication:Cough Start:25-Jul-2016 Instruction Type:Patient Education Patient Instructions Indication:Cough Start:25-Jul-2016 Instruction Type:Provider Instructions for Treatment [facility] Work Phone: Summary Purpose Family History Unknown Family Member Name Dates Details Brother 1 Comments:Hepatitis, Lung [place] Status:Active Father Comments:HTN, Prostate [place] Status:Active Maternal Grandfather Comments:[place] Status:Active Maternal Grandmother Comments:stroke Status:Active Mother Comments:htn, cholesterol, a nemia, osteoporosis Status:Active Paternal Grandfather Comments:GA Status:Active Sister 1 Comments:Cervial [place] Status:Active Unknown Family Member Name Dates Details Brother 1 Comments:Hepatitis, Lung CA Status:Active Father Comments:HTN, Prostate [place] Status:Active Maternal Grandfather Comments:[place] Status:Active Maternal Grandmother Comments:stroke Status:Active Mother Comments:htn, cholesterol, a nemia, osteoporosis Status:Active Paternal Grandfather Comments:GA Status:Active Sister 1 Comments:Cervial [place] Status:Active Unknown Family Member Name Dates Details Brother 1 Comments:Hepatitis, Lung CA Status:Active Father Comments:HTN, Prostate [place] Status:Active Maternal Grandfather Comments:GA Status:Active Maternal Grandmother Comments:stroke Status:Active Mother Comments:htn, cholesterol, a nemia, osteoporosis Status:Active Paternal Grandfather Comments:GA Status:Active Sister 1 Comments:Cervial CA Status:Active Unknown Family Member Name Dates Details Brother 1 Comments:Hepatitis, Lung CA Status:Active Father Comments:HTN, Prostate [place] Status:Active Maternal Grandfather Comments:GA Status:Active Maternal Grandmother Comments:stroke Status:Active Mother Comments:htn, cholesterol, a nemia, osteoporosis Status:Active Paternal Grandfather Comments:GA Status:Active Sister 1 Comments:Cervial CA Status:Active Unknown Family Member Name Dates Details Brother 1 Comments:Hepatitis, Lung CA Status:Active Father Comments:HTN, Prostate [place] Status:Active Maternal Grandfather Comments:GA Status:Active Maternal Grandmother Comments:stroke Status:Active Mother Comments:htn, cholesterol, a nemia, osteoporosis Status:Active Paternal Grandfather Comments:GA Status:Active Sister 1 Comments:Cervial CA Status:Active Unknown Family Member Name Dates Details Brother 1 Comments:Hepatitis, Lung CA Status:Active Father Comments:HTN, Prostate [place] Status:Active Maternal Grandfather Comments:GA Status:Active Maternal Grandmother Comments:stroke Status:Active Mother Comments:htn, cholesterol, a nemia, osteoporosis Status:Active Paternal Grandfather Comments:GA Status:Active Sister 1 Comments:Cervial CA Status:Active Unknown Family Member Name Dates Details Brother 1 Comments:Hepatitis, Lung CA Status:Active Father Comments:HTN, Prostate [place] Status:Active Maternal Grandfather Comments:GA Status:Active Maternal Grandmother Comments:stroke Status:Active Mother Comments:htn, cholesterol, a nemia, osteoporosis Status:Active Paternal Grandfather Comments:GA Status:Active Sister 1 Comments:Cervial CA Status:Active Unknown Family Member Name Dates Details Brother 1 Comments:Hepatitis, Lung CA Status:Active Father Comments:HTN, Prostate [place] Status:Active Maternal Grandfather Comments:GA Status:Active Maternal Grandmother Comments:stroke Status:Active Mother Comments:htn, cholesterol, a nemia, osteoporosis Status:Active Paternal Grandfather Comments:GA Status:Active Sister 1 Comments:Cervial CA Status:Active Unknown Family Member Name Dates Details Brother 1 Comments:Hepatitis, Lung CA Status:Active Father Comments:HTN, Prostate [place] Status:Active Maternal Grandfather Comments:GA Status:Active Maternal Grandmother Comments:stroke Status:Active Mother Comments:htn, cholesterol, a nemia, osteoporosis Status:Active Paternal Grandfather Comments:GA Status:Active Sister 1 Comments:Cervial CA Status:Active Unknown Family Member Name Dates Details Brother 1 Comments:Hepatitis, Lung CA Status:Active Father Comments:HTN, Prostate [place] Status:Active Maternal Grandfather Comments:GA Status:Active Maternal Grandmother Comments:stroke Status:Active Mother Comments:htn, cholesterol, a nemia, osteoporosis Status:Active Paternal Grandfather Comments:GA Status:Active Sister 1 Comments:Cervial CA Status:Active Unknown Family Member Name Dates Details Brother 1 Comments:Hepatitis, Lung CA Status:Active Father Comments:HTN, Prostate [place] Status:Active Maternal Grandfather Comments:GA Status:Active Maternal Grandmother Comments:stroke Status:Active Mother Comments:htn, cholesterol, a nemia, osteoporosis Status:Active Paternal Grandfather Comments:GA Status:Active Sister 1 Comments:Cervial CA Status:Active Unknown Family Member Name Dates Details Brother 1 Comments:Hepatitis, Lung CA Status:Active Father Comments:HTN, Prostate [place] Status:Active Maternal Grandfather Comments:GA Status:Active Maternal Grandmother Comments:stroke Status:Active Mother Comments:htn, cholesterol, a nemia, osteoporosis Status:Active Paternal Grandfather Comments:GA Status:Active Sister 1 Comments:Cervial CA Status:Active Unknown Family Member Name Dates Details Brother 1 Comments:Hepatitis, Lung CA Status:Active Father Comments:HTN, Prostate [place] Status:Active Maternal Grandfather Comments:GA Status:Active Maternal Grandmother Comments:stroke Status:Active Mother Comments:htn, cholesterol, a nemia, osteoporosis Status:Active Paternal Grandfather Comments:GA Status:Active Sister 1 Comments:Cervial CA Status:Active Unknown Family Member Name Dates Details Brother 1 Comments:Hepatitis, Lung CA Status:Active Father Comments:HTN, Prostate [place] Status:Active Maternal Grandfather Comments:GA Status:Active Maternal Grandmother Comments:stroke Status:Active Mother Comments:htn, cholesterol, a nemia, osteoporosis Status:Active Paternal Grandfather Comments:GA Status:Active Sister 1 Comments:Cervial CA Status:Active Unknown Family Member Name Dates Details Brother 1 Comments:Hepatitis, Lung CA Status:Active Father Comments:HTN, Prostate [place] Status:Active Maternal Grandfather Comments:GA Status:Active Maternal Grandmother Comments:stroke Status:Active Mother Comments:htn, cholesterol, a nemia, osteoporosis Status:Active Paternal Grandfather Comments:GA Status:Active Sister 1 Comments:Cervial CA Status:Active Unknown Family Member Name Dates Details Brother 1 Comments:Hepatitis, Lung CA Status:Active Father Comments:HTN, Prostate [place] Status:Active Maternal Grandfather Comments:GA Status:Active Maternal Grandmother Comments:stroke Status:Active Mother Comments:htn, cholesterol, a nemia, osteoporosis Status:Active Paternal Grandfather Comments:GA Status:Active Sister 1 Comments:Cervial CA Status:Active Unknown Family Member Name Dates Details Brother 1 Comments:Hepatitis, Lung CA Status:Active Father Comments:HTN, Prostate [place] Status:Active Maternal Grandfather Comments:GA Status:Active Maternal Grandmother Comments:stroke Status:Active Mother Comments:htn, cholesterol, a nemia, osteoporosis Status:Active Paternal Grandfather Comments:GA Status:Active Sister 1 Comments:Cervial CA Status:Active Unknown Family Member Name Dates Details Brother 1 Comments:Hepatitis, Lung CA Status:Active Father Comments:HTN, Prostate [place] Status:Active Maternal Grandfather Comments:GA Status:Active Maternal Grandmother Comments:stroke Status:Active Mother Comments:htn, cholesterol, a nemia, osteoporosis Status:Active Paternal Grandfather Comments:GA Status:Active Sister 1 Comments:Cervial CA Status:Active Unknown Family Member Name Dates Details Brother 1 Comments:Hepatitis, Lung CA Status:Active Father Comments:HTN, Prostate [place] Status:Active Maternal Grandfather Comments:GA Status:Active Maternal Grandmother Comments:stroke Status:Active Mother Comments:htn, cholesterol, a nemia, osteoporosis Status:Active Paternal Grandfather Comments:GA Status:Active Sister 1 Comments:Cervial CA Status:Active Unknown Family Member Name Dates Details Brother 1 Comments:Hepatitis, Lung CA Status:Active Father Comments:HTN, Prostate [place] Status:Active Maternal Grandfather Comments:GA Status:Active Maternal Grandmother Comments:stroke Status:Active Mother Comments:htn, cholesterol, a nemia, osteoporosis Status:Active Paternal Grandfather Comments:GA Status:Active Sister 1 Comments:Cervial CA Status:Active Unknown Family Member Name Dates Details Brother 1 Comments:Hepatitis, Lung CA Status:Active Father Comments:HTN, Prostate [place] Status:Active Maternal Grandfather Comments:GA Status:Active Maternal Grandmother Comments:stroke Status:Active Mother Comments:htn, cholesterol, a nemia, osteoporosis Status:Active Paternal Grandfather Comments:GA Status:Active Sister 1 Comments:Cervial CA Status:Active Unknown Family Member Name Dates Details Brother 1 Comments:Hepatitis, Lung CA Status:Active Father Comments:HTN, Prostate [place] Status:Active Maternal Grandfather Comments:GA Status:Active Maternal Grandmother Comments:stroke Status:Active Mother Comments:htn, cholesterol, a nemia, osteoporosis Status:Active Paternal Grandfather Comments:GA Status:Active Sister 1 Comments:Cervial CA Status:Active Unknown Family Member Name Dates Details Brother 1 Comments:Hepatitis, Lung CA Status:Active Father Comments:HTN, Prostate [place] Status:Active Maternal Grandfather Comments:GA Status:Active Maternal Grandmother Comments:stroke Status:Active Mother Comments:htn, cholesterol, a nemia, osteoporosis Status:Active Paternal Grandfather Comments:GA Status:Active Sister 1 Comments:Cervial CA Status:Active Unknown Family Member Name Dates Details Brother 1 Comments:Hepatitis, Lung CA Status:Active Father Comments:HTN, Prostate [place] Status:Active Maternal Grandfather Comments:GA Status:Active Maternal Grandmother Comments:stroke Status:Active Mother Comments:htn, cholesterol, a nemia, osteoporosis Status:Active Paternal Grandfather Comments:GA Status:Active Sister 1 Comments:Cervial CA Status:Active Unknown Family Member Name Dates Details Brother 1 Comments:Hepatitis, Lung CA Status:Active Father Comments:HTN, Prostate [place] Status:Active Maternal Grandfather Comments:GA Status:Active Maternal Grandmother Comments:stroke Status:Active Mother Comments:htn, cholesterol, a nemia, osteoporosis Status:Active Paternal Grandfather Comments:GA Status:Active Sister 1 Comments:Cervial CA Status:Active Unknown Family Member Name Dates Details Brother 1 Comments:Hepatitis, Lung CA Status:Active Father Comments:HTN, Prostate [place] Status:Active Maternal Grandfather Comments:GA Status:Active Maternal Grandmother Comments:stroke Status:Active Mother Comments:htn, cholesterol, a nemia, osteoporosis Status:Active Paternal Grandfather Comments:GA Status:Active Sister 1 Comments:Cervial CA Status:Active Unknown Family Member Name Dates Details Brother 1 Comments:Hepatitis, Lung CA Status:Active Father Comments:HTN, Prostate [place] Status:Active Maternal Grandfather Comments:GA Status:Active Maternal Grandmother Comments:stroke Status:Active Mother Comments:htn, cholesterol, a nemia, osteoporosis Status:Active Paternal Grandfather Comments:GA Status:Active Sister 1 Comments:Cervial CA Status:Active Advance Directives No Advanced Directives Records FoundNo Advanced Directives Records FoundNo Advanced Directives Records Found Instructions Name Dates Details How to access health informa tion online Indication:Non-smoker Start:13-Mar-2019 Instruction Type:Patient Education How to access health informa tion online - Detail Indication:Non-smoker Start:13-Mar-2019 Instruction Type:Patient Education Patient Instructions Indication:Non-smoker Start:13-Mar-2019 Instruction Type:Provider Instructions for Treatment How to access health informa tion online Indication:Non-smoker Start:12-Sep-2018 Instruction Type:Patient Education How to access health informa tion online - Detail Indication:Non-smoker Start:12-Sep-2018 Instruction Type:Patient Education Patient Instructions Indication:Non-smoker Start:12-Sep-2018 Instruction Type:Provider Instructions for Treatment How to access health informa tion online Indication:Current nonsmoker (Renamed from Current non-smoker) Start:22-Aug-2018 Instruction Type:Patient Education How to access health informa tion online - Detail Indication:Current nonsmoker (Renamed from Current non-smoker) Start:22-Aug-2018 Instruction Type:Patient Education Patient Instructions Indication:Current nonsmoker (Renamed from Current non-smoker) Start:22-Aug-2018 Instruction Type:Provider Instructions for Treatment How to access health informa tion online Indication:Current nonsmoker (Renamed from Current non-smoker) Start:26-Apr-2018 Instruction Type:Patient Education How to access health informa tion online - Detail Indication:Current nonsmoker (Renamed from Current non-smoker) Start:26-Apr-2018 Instruction Type:Patient Education Patient Instructions Indication:Current nonsmoker (Renamed from Current non-smoker) Start:26-Apr-2018 Instruction Type:Provider Instructions for Treatment How to access health informa tion online Indication:Current nonsmoker (Renamed from Current non-smoker) Start:19-Apr-2018 Instruction Type:Patient Education How to access health informa tion online - Detail Indication:Current nonsmoker (Renamed from Current non-smoker) Start:19-Apr-2018 Instruction Type:Patient Education Patient Instructions Indication:Current nonsmoker (Renamed from Current non-smoker) Start:19-Apr-2018 Instruction Type:Provider Instructions for Treatment How to access health informa tion online Indication:Current nonsmoker (Renamed from Current non-smoker) Start:27-Jun-2017 Instruction Type:Patient Education How to access health informa tion online - Detail Indication:Current nonsmoker (Renamed from Current non-smoker) Start:27-Jun-2017 Instruction Type:Patient Education Patient Instructions Indication:Current nonsmoker (Renamed from Current non-smoker) Start:27-Jun-2017 Instruction Type:Provider Instructions for Treatment How to access health informa tion online Indication:Current nonsmoker (Renamed from Current non-smoker) Start:26-Apr-2017 Instruction Type:Patient Education How to access health informa tion online - Detail Indication:Current nonsmoker (Renamed from Current non-smoker) Start:26-Apr-2017 Instruction Type:Patient Education Patient Instructions Indication:Current nonsmoker (Renamed from Current non-smoker) Start:26-Apr-2017 Instruction Type:Provider Instructions for Treatment How to access health informa tion online Indication:Current nonsmoker (Renamed from Current non-smoker) Start:02-Mar-2017 Instruction Type:Patient Education How to access health informa tion online - Detail Indication:Current nonsmoker (Renamed from Current non-smoker) Start:02-Mar-2017 Instruction Type:Patient Education Patient Instructions Indication:Current nonsmoker (Renamed from Current non-smoker) Start:02-Mar-2017 Instruction Type:Provider Instructions for Treatment Patient Instructions Indication:Current nonsmoker (Renamed from Current non-smoker) Start:01-Feb-2017 Instruction Type:Provider Instructions for Treatment How to access health informa tion online Indication:Current nonsmoker (Renamed from Current non-smoker) Start:01-Feb-2017 Instruction Type:Patient Education How to access health informa tion online - Detail Indication:Current nonsmoker (Renamed from Current non-smoker) Start:01-Feb-2017 Instruction Type:Patient Education How to access health informa tion online Indication:Dysuria Start:25-Jan-2017 Instruction Type:Patient Education How to access health informa tion online - Detail Indication:Dysuria Start:25-Jan-2017 Instruction Type:Patient Education Patient Instructions Indication:Dysuria Start:25-Jan-2017 Instruction Type:Provider Instructions for Treatment How to access health informa tion online Indication:Hypertension Start:28-Dec-2016 Instruction Type:Patient Education How to access health informa tion online - Detail Indication:Hypertension Start:28-Dec-2016 Instruction Type:Patient Education Patient Instructions Indication:Hypertension Start:28-Dec-2016 Instruction Type:Provider Instructions for Treatment How to access health informa tion online Indication:Hypertension Start:14-Dec-2016 Instruction Type:Patient Education How to access health informa tion online - Detail Indication:Hypertension Start:14-Dec-2016 Instruction Type:Patient Education Patient Instructions Indication:Hypertension Start:14-Dec-2016 Instruction Type:Provider Instructions for Treatment How to access health informa tion online Indication:Cough Start:25-Jul-2016 Instruction Type:Patient Education How to access health informa tion online - Detail Indication:Cough Start:25-Jul-2016 Instruction Type:Patient Education Patient Instructions Indication:Cough Start:25-Jul-2016 Instruction Type:Provider Instructions for Treatment Name Dates Details How to access health informa tion online Indication:Non-smoker Start:08-May-2019 Instruction Type:Patient Education How to access health informa tion online - Detail Indication:Non-smoker Start:08-May-2019 Instruction Type:Patient Education Patient Instructions Indication:Non-smoker Start:08-May-2019 Instruction Type:Provider Instructions for Treatment How to access health informa tion online Indication:Non-smoker Start:13-Mar-2019 Instruction Type:Patient Education How to access health informa tion online - Detail Indication:Non-smoker Start:13-Mar-2019 Instruction Type:Patient Education Patient Instructions Indication:Non-smoker Start:13-Mar-2019 Instruction Type:Provider Instructions for Treatment How to access health informa tion online Indication:Non-smoker Start:12-Sep-2018 Instruction Type:Patient Education How to access health informa tion online - Detail Indication:Non-smoker Start:12-Sep-2018 Instruction Type:Patient Education Patient Instructions Indication:Non-smoker Start:12-Sep-2018 Instruction Type:Provider Instructions for Treatment How to access health informa tion online Indication:Current nonsmoker (Renamed from Current non-smoker) Start:22-Aug-2018 Instruction Type:Patient Education How to access health informa tion online - Detail Indication:Current nonsmoker (Renamed from Current non-smoker) Start:22-Aug-2018 Instruction Type:Patient Education Patient Instructions Indication:Current nonsmoker (Renamed from Current non-smoker) Start:22-Aug-2018 Instruction Type:Provider Instructions for Treatment How to access health informa tion online Indication:Current nonsmoker (Renamed from Current non-smoker) Start:26-Apr-2018 Instruction Type:Patient Education How to access health informa tion online - Detail Indication:Current nonsmoker (Renamed from Current non-smoker) Start:26-Apr-2018 Instruction Type:Patient Education Patient Instructions Indication:Current nonsmoker (Renamed from Current non-smoker) Start:26-Apr-2018 Instruction Type:Provider Instructions for Treatment How to access health informa tion online Indication:Current nonsmoker (Renamed from Current non-smoker) Start:19-Apr-2018 Instruction Type:Patient Education How to access health informa tion online - Detail Indication:Current nonsmoker (Renamed from Current non-smoker) Start:19-Apr-2018 Instruction Type:Patient Education Patient Instructions Indication:Current nonsmoker (Renamed from Current non-smoker) Start:19-Apr-2018 Instruction Type:Provider Instructions for Treatment How to access health informa tion online Indication:Current nonsmoker (Renamed from Current non-smoker) Start:27-Jun-2017 Instruction Type:Patient Education How to access health informa tion online - Detail Indication:Current nonsmoker (Renamed from Current non-smoker) Start:27-Jun-2017 Instruction Type:Patient Education Patient Instructions Indication:Current nonsmoker (Renamed from Current non-smoker) Start:27-Jun-2017 Instruction Type:Provider Instructions for Treatment How to access health informa tion online Indication:Current nonsmoker (Renamed from Current non-smoker) Start:26-Apr-2017 Instruction Type:Patient Education How to access health informa tion online - Detail Indication:Current nonsmoker (Renamed from Current non-smoker) Start:26-Apr-2017 Instruction Type:Patient Education Patient Instructions Indication:Current nonsmoker (Renamed from Current non-smoker) Start:26-Apr-2017 Instruction Type:Provider Instructions for Treatment How to access health informa tion online Indication:Current nonsmoker (Renamed from Current non-smoker) Start:02-Mar-2017 Instruction Type:Patient Education How to access health informa tion online - Detail Indication:Current nonsmoker (Renamed from Current non-smoker) Start:02-Mar-2017 Instruction Type:Patient Education Patient Instructions Indication:Current nonsmoker (Renamed from Current non-smoker) Start:02-Mar-2017 Instruction Type:Provider Instructions for Treatment Patient Instructions Indication:Current nonsmoker (Renamed from Current non-smoker) Start:01-Feb-2017 Instruction Type:Provider Instructions for Treatment How to access health informa tion online Indication:Current nonsmoker (Renamed from Current non-smoker) Start:01-Feb-2017 Instruction Type:Patient Education How to access health informa tion online - Detail Indication:Current nonsmoker (Renamed from Current non-smoker) Start:01-Feb-2017 Instruction Type:Patient Education How to access health informa tion online Indication:Dysuria Start:25-Jan-2017 Instruction Type:Patient Education How to access health informa tion online - Detail Indication:Dysuria Start:25-Jan-2017 Instruction Type:Patient Education Patient Instructions Indication:Dysuria Start:25-Jan-2017 Instruction Type:Provider Instructions for Treatment How to access health informa tion online Indication:Hypertension Start:28-Dec-2016 Instruction Type:Patient Education How to access health informa tion online - Detail Indication:Hypertension Start:28-Dec-2016 Instruction Type:Patient Education Patient Instructions Indication:Hypertension Start:28-Dec-2016 Instruction Type:Provider Instructions for Treatment How to access health informa tion online Indication:Hypertension Start:14-Dec-2016 Instruction Type:Patient Education How to access health informa tion online - Detail Indication:Hypertension Start:14-Dec-2016 Instruction Type:Patient Education Patient Instructions Indication:Hypertension Start:14-Dec-2016 Instruction Type:Provider Instructions for Treatment How to access health informa tion online Indication:Cough Start:25-Jul-2016 Instruction Type:Patient Education How to access health informa tion online - Detail Indication:Cough Start:25-Jul-2016 Instruction Type:Patient Education Patient Instructions Indication:Cough Start:25-Jul-2016 Instruction Type:Provider Instructions for Treatment Name Dates Details How to access health informa tion online Indication:Non-smoker Start:08-May-2019 Instruction Type:Patient Education How to access health informa tion online - Detail Indication:Non-smoker Start:08-May-2019 Instruction Type:Patient Education Patient Instructions Indication:Non-smoker Start:08-May-2019 Instruction Type:Provider Instructions for Treatment How to access health informa tion online Indication:Non-smoker Start:13-Mar-2019 Instruction Type:Patient Education How to access health informa tion online - Detail Indication:Non-smoker Start:13-Mar-2019 Instruction Type:Patient Education Patient Instructions Indication:Non-smoker Start:13-Mar-2019 Instruction Type:Provider Instructions for Treatment How to access health informa tion online Indication:Non-smoker Start:12-Sep-2018 Instruction Type:Patient Education How to access health informa tion online - Detail Indication:Non-smoker Start:12-Sep-2018 Instruction Type:Patient Education Patient Instructions Indication:Non-smoker Start:12-Sep-2018 Instruction Type:Provider Instructions for Treatment How to access health informa tion online Indication:Current nonsmoker (Renamed from Current non-smoker) Start:22-Aug-2018 Instruction Type:Patient Education How to access health informa tion online - Detail Indication:Current nonsmoker (Renamed from Current non-smoker) Start:22-Aug-2018 Instruction Type:Patient Education Patient Instructions Indication:Current nonsmoker (Renamed from Current non-smoker) Start:22-Aug-2018 Instruction Type:Provider Instructions for Treatment How to access health informa tion online Indication:Current nonsmoker (Renamed from Current non-smoker) Start:26-Apr-2018 Instruction Type:Patient Education How to access health informa tion online - Detail Indication:Current nonsmoker (Renamed from Current non-smoker) Start:26-Apr-2018 Instruction Type:Patient Education Patient Instructions Indication:Current nonsmoker (Renamed from Current non-smoker) Start:26-Apr-2018 Instruction Type:Provider Instructions for Treatment How to access health informa tion online Indication:Current nonsmoker (Renamed from Current non-smoker) Start:19-Apr-2018 Instruction Type:Patient Education How to access health informa tion online - Detail Indication:Current nonsmoker (Renamed from Current non-smoker) Start:19-Apr-2018 Instruction Type:Patient Education Patient Instructions Indication:Current nonsmoker (Renamed from Current non-smoker) Start:19-Apr-2018 Instruction Type:Provider Instructions for Treatment How to access health informa tion online Indication:Current nonsmoker (Renamed from Current non-smoker) Start:27-Jun-2017 Instruction Type:Patient Education How to access health informa tion online - Detail Indication:Current nonsmoker (Renamed from Current non-smoker) Start:27-Jun-2017 Instruction Type:Patient Education Patient Instructions Indication:Current nonsmoker (Renamed from Current non-smoker) Start:27-Jun-2017 Instruction Type:Provider Instructions for Treatment How to access health informa tion online Indication:Current nonsmoker (Renamed from Current non-smoker) Start:26-Apr-2017 Instruction Type:Patient Education How to access health informa tion online - Detail Indication:Current nonsmoker (Renamed from Current non-smoker) Start:26-Apr-2017 Instruction Type:Patient Education Patient Instructions Indication:Current nonsmoker (Renamed from Current non-smoker) Start:26-Apr-2017 Instruction Type:Provider Instructions for Treatment How to access health informa tion online Indication:Current nonsmoker (Renamed from Current non-smoker) Start:02-Mar-2017 Instruction Type:Patient Education How to access health informa tion online - Detail Indication:Current nonsmoker (Renamed from Current non-smoker) Start:02-Mar-2017 Instruction Type:Patient Education Patient Instructions Indication:Current nonsmoker (Renamed from Current non-smoker) Start:02-Mar-2017 Instruction Type:Provider Instructions for Treatment Patient Instructions Indication:Current nonsmoker (Renamed from Current non-smoker) Start:01-Feb-2017 Instruction Type:Provider Instructions for Treatment How to access health informa tion online Indication:Current nonsmoker (Renamed from Current non-smoker) Start:01-Feb-2017 Instruction Type:Patient Education How to access health informa tion online - Detail Indication:Current nonsmoker (Renamed from Current non-smoker) Start:01-Feb-2017 Instruction Type:Patient Education How to access health informa tion online Indication:Dysuria Start:25-Jan-2017 Instruction Type:Patient Education How to access health informa tion online - Detail Indication:Dysuria Start:25-Jan-2017 Instruction Type:Patient Education Patient Instructions Indication:Dysuria Start:25-Jan-2017 Instruction Type:Provider Instructions for Treatment How to access health informa tion online Indication:Hypertension Start:28-Dec-2016 Instruction Type:Patient Education How to access health informa tion online - Detail Indication:Hypertension Start:28-Dec-2016 Instruction Type:Patient Education Patient Instructions Indication:Hypertension Start:28-Dec-2016 Instruction Type:Provider Instructions for Treatment How to access health informa tion online Indication:Hypertension Start:14-Dec-2016 Instruction Type:Patient Education How to access health informa tion online - Detail Indication:Hypertension Start:14-Dec-2016 Instruction Type:Patient Education Patient Instructions Indication:Hypertension Start:14-Dec-2016 Instruction Type:Provider Instructions for Treatment How to access health informa tion online Indication:Cough Start:25-Jul-2016 Instruction Type:Patient Education How to access health informa tion online - Detail Indication:Cough Start:25-Jul-2016 Instruction Type:Patient Education Patient Instructions Indication:Cough Start:25-Jul-2016 Instruction Type:Provider Instructions for Treatment Name Dates Details How to access health informa tion online Indication:Non-smoker Start:08-May-2019 Instruction Type:Patient Education How to access health informa tion online - Detail Indication:Non-smoker Start:08-May-2019 Instruction Type:Patient Education Patient Instructions Indication:Non-smoker Start:08-May-2019 Instruction Type:Provider Instructions for Treatment How to access health informa tion online Indication:Non-smoker Start:13-Mar-2019 Instruction Type:Patient Education How to access health informa tion online - Detail Indication:Non-smoker Start:13-Mar-2019 Instruction Type:Patient Education Patient Instructions Indication:Non-smoker Start:13-Mar-2019 Instruction Type:Provider Instructions for Treatment How to access health informa tion online Indication:Non-smoker Start:12-Sep-2018 Instruction Type:Patient Education How to access health informa tion online - Detail Indication:Non-smoker Start:12-Sep-2018 Instruction Type:Patient Education Patient Instructions Indication:Non-smoker Start:12-Sep-2018 Instruction Type:Provider Instructions for Treatment How to access health informa tion online Indication:Current nonsmoker (Renamed from Current non-smoker) Start:22-Aug-2018 Instruction Type:Patient Education How to access health informa tion online - Detail Indication:Current nonsmoker (Renamed from Current non-smoker) Start:22-Aug-2018 Instruction Type:Patient Education Patient Instructions Indication:Current nonsmoker (Renamed from Current non-smoker) Start:22-Aug-2018 Instruction Type:Provider Instructions for Treatment How to access health informa tion online Indication:Current nonsmoker (Renamed from Current non-smoker) Start:26-Apr-2018 Instruction Type:Patient Education How to access health informa tion online - Detail Indication:Current nonsmoker (Renamed from Current non-smoker) Start:26-Apr-2018 Instruction Type:Patient Education Patient Instructions Indication:Current nonsmoker (Renamed from Current non-smoker) Start:26-Apr-2018 Instruction Type:Provider Instructions for Treatment How to access health informa tion online Indication:Current nonsmoker (Renamed from Current non-smoker) Start:19-Apr-2018 Instruction Type:Patient Education How to access health informa tion online - Detail Indication:Current nonsmoker (Renamed from Current non-smoker) Start:19-Apr-2018 Instruction Type:Patient Education Patient Instructions Indication:Current nonsmoker (Renamed from Current non-smoker) Start:19-Apr-2018 Instruction Type:Provider Instructions for Treatment How to access health informa tion online Indication:Current nonsmoker (Renamed from Current non-smoker) Start:27-Jun-2017 Instruction Type:Patient Education How to access health informa tion online - Detail Indication:Current nonsmoker (Renamed from Current non-smoker) Start:27-Jun-2017 Instruction Type:Patient Education Patient Instructions Indication:Current nonsmoker (Renamed from Current non-smoker) Start:27-Jun-2017 Instruction Type:Provider Instructions for Treatment How to access health informa tion online Indication:Current nonsmoker (Renamed from Current non-smoker) Start:26-Apr-2017 Instruction Type:Patient Education How to access health informa tion online - Detail Indication:Current nonsmoker (Renamed from Current non-smoker) Start:26-Apr-2017 Instruction Type:Patient Education Patient Instructions Indication:Current nonsmoker (Renamed from Current non-smoker) Start:26-Apr-2017 Instruction Type:Provider Instructions for Treatment How to access health informa tion online Indication:Current nonsmoker (Renamed from Current non-smoker) Start:02-Mar-2017 Instruction Type:Patient Education How to access health informa tion online - Detail Indication:Current nonsmoker (Renamed from Current non-smoker) Start:02-Mar-2017 Instruction Type:Patient Education Patient Instructions Indication:Current nonsmoker (Renamed from Current non-smoker) Start:02-Mar-2017 Instruction Type:Provider Instructions for Treatment Patient Instructions Indication:Current nonsmoker (Renamed from Current non-smoker) Start:01-Feb-2017 Instruction Type:Provider Instructions for Treatment How to access health informa tion online Indication:Current nonsmoker (Renamed from Current non-smoker) Start:01-Feb-2017 Instruction Type:Patient Education How to access health informa tion online - Detail Indication:Current nonsmoker (Renamed from Current non-smoker) Start:01-Feb-2017 Instruction Type:Patient Education How to access health informa tion online Indication:Dysuria Start:25-Jan-2017 Instruction Type:Patient Education How to access health informa tion online - Detail Indication:Dysuria Start:25-Jan-2017 Instruction Type:Patient Education Patient Instructions Indication:Dysuria Start:25-Jan-2017 Instruction Type:Provider Instructions for Treatment How to access health informa tion online Indication:Hypertension Start:28-Dec-2016 Instruction Type:Patient Education How to access health informa tion online - Detail Indication:Hypertension Start:28-Dec-2016 Instruction Type:Patient Education Patient Instructions Indication:Hypertension Start:28-Dec-2016 Instruction Type:Provider Instructions for Treatment How to access health informa tion online Indication:Hypertension Start:14-Dec-2016 Instruction Type:Patient Education How to access health informa tion online - Detail Indication:Hypertension Start:14-Dec-2016 Instruction Type:Patient Education Patient Instructions Indication:Hypertension Start:14-Dec-2016 Instruction Type:Provider Instructions for Treatment How to access health informa tion online Indication:Cough Start:25-Jul-2016 Instruction Type:Patient Education How to access health informa tion online - Detail Indication:Cough Start:25-Jul-2016 Instruction Type:Patient Education Patient Instructions Indication:Cough Start:25-Jul-2016 Instruction Type:Provider Instructions for Treatment Name Dates Details How to access health informa tion online Indication:Non-smoker Start:08-May-2019 Instruction Type:Patient Education How to access health informa tion online - Detail Indication:Non-smoker Start:08-May-2019 Instruction Type:Patient Education Patient Instructions Indication:Non-smoker Start:08-May-2019 Instruction Type:Provider Instructions for Treatment How to access health informa tion online Indication:Non-smoker Start:13-Mar-2019 Instruction Type:Patient Education How to access health informa tion online - Detail Indication:Non-smoker Start:13-Mar-2019 Instruction Type:Patient Education Patient Instructions Indication:Non-smoker Start:13-Mar-2019 Instruction Type:Provider Instructions for Treatment How to access health informa tion online Indication:Non-smoker Start:12-Sep-2018 Instruction Type:Patient Education How to access health informa tion online - Detail Indication:Non-smoker Start:12-Sep-2018 Instruction Type:Patient Education Patient Instructions Indication:Non-smoker Start:12-Sep-2018 Instruction Type:Provider Instructions for Treatment How to access health informa tion online Indication:Current nonsmoker (Renamed from Current non-smoker) Start:22-Aug-2018 Instruction Type:Patient Education How to access health informa tion online - Detail Indication:Current nonsmoker (Renamed from Current non-smoker) Start:22-Aug-2018 Instruction Type:Patient Education Patient Instructions Indication:Current nonsmoker (Renamed from Current non-smoker) Start:22-Aug-2018 Instruction Type:Provider Instructions for Treatment How to access health informa tion online Indication:Current nonsmoker (Renamed from Current non-smoker) Start:26-Apr-2018 Instruction Type:Patient Education How to access health informa tion online - Detail Indication:Current nonsmoker (Renamed from Current non-smoker) Start:26-Apr-2018 Instruction Type:Patient Education Patient Instructions Indication:Current nonsmoker (Renamed from Current non-smoker) Start:26-Apr-2018 Instruction Type:Provider Instructions for Treatment How to access health informa tion online Indication:Current nonsmoker (Renamed from Current non-smoker) Start:19-Apr-2018 Instruction Type:Patient Education How to access health informa tion online - Detail Indication:Current nonsmoker (Renamed from Current non-smoker) Start:19-Apr-2018 Instruction Type:Patient Education Patient Instructions Indication:Current nonsmoker (Renamed from Current non-smoker) Start:19-Apr-2018 Instruction Type:Provider Instructions for Treatment How to access health informa tion online Indication:Current nonsmoker (Renamed from Current non-smoker) Start:27-Jun-2017 Instruction Type:Patient Education How to access health informa tion online - Detail Indication:Current nonsmoker (Renamed from Current non-smoker) Start:27-Jun-2017 Instruction Type:Patient Education Patient Instructions Indication:Current nonsmoker (Renamed from Current non-smoker) Start:27-Jun-2017 Instruction Type:Provider Instructions for Treatment How to access health informa tion online Indication:Current nonsmoker (Renamed from Current non-smoker) Start:26-Apr-2017 Instruction Type:Patient Education How to access health informa tion online - Detail Indication:Current nonsmoker (Renamed from Current non-smoker) Start:26-Apr-2017 Instruction Type:Patient Education Patient Instructions Indication:Current nonsmoker (Renamed from Current non-smoker) Start:26-Apr-2017 Instruction Type:Provider Instructions for Treatment How to access health informa tion online Indication:Current nonsmoker (Renamed from Current non-smoker) Start:02-Mar-2017 Instruction Type:Patient Education How to access health informa tion online - Detail Indication:Current nonsmoker (Renamed from Current non-smoker) Start:02-Mar-2017 Instruction Type:Patient Education Patient Instructions Indication:Current nonsmoker (Renamed from Current non-smoker) Start:02-Mar-2017 Instruction Type:Provider Instructions for Treatment Patient Instructions Indication:Current nonsmoker (Renamed from Current non-smoker) Start:01-Feb-2017 Instruction Type:Provider Instructions for Treatment How to access health informa tion online Indication:Current nonsmoker (Renamed from Current non-smoker) Start:01-Feb-2017 Instruction Type:Patient Education How to access health informa tion online - Detail Indication:Current nonsmoker (Renamed from Current non-smoker) Start:01-Feb-2017 Instruction Type:Patient Education How to access health informa tion online Indication:Dysuria Start:25-Jan-2017 Instruction Type:Patient Education How to access health informa tion online - Detail Indication:Dysuria Start:25-Jan-2017 Instruction Type:Patient Education Patient Instructions Indication:Dysuria Start:25-Jan-2017 Instruction Type:Provider Instructions for Treatment How to access health informa tion online Indication:Hypertension Start:28-Dec-2016 Instruction Type:Patient Education How to access health informa tion online - Detail Indication:Hypertension Start:28-Dec-2016 Instruction Type:Patient Education Patient Instructions Indication:Hypertension Start:28-Dec-2016 Instruction Type:Provider Instructions for Treatment How to access health informa tion online Indication:Hypertension Start:14-Dec-2016 Instruction Type:Patient Education How to access health informa tion online - Detail Indication:Hypertension Start:14-Dec-2016 Instruction Type:Patient Education Patient Instructions Indication:Hypertension Start:14-Dec-2016 Instruction Type:Provider Instructions for Treatment How to access health informa tion online Indication:Cough Start:25-Jul-2016 Instruction Type:Patient Education How to access health informa tion online - Detail Indication:Cough Start:25-Jul-2016 Instruction Type:Patient Education Patient Instructions Indication:Cough Start:25-Jul-2016 Instruction Type:Provider Instructions for Treatment Name Dates Details How to access health informa tion online Indication:Non-smoker Start:09-Oct-2019 Instruction Type:Patient Education How to access health informa tion online - Detail Indication:Non-smoker Start:09-Oct-2019 Instruction Type:Patient Education Patient Instructions Indication:Non-smoker Start:09-Oct-2019 Instruction Type:Provider Instructions for Treatment How to access health informa tion online Indication:Non-smoker Start:08-May-2019 Instruction Type:Patient Education How to access health informa tion online - Detail Indication:Non-smoker Start:08-May-2019 Instruction Type:Patient Education Patient Instructions Indication:Non-smoker Start:08-May-2019 Instruction Type:Provider Instructions for Treatment How to access health informa tion online Indication:Non-smoker Start:13-Mar-2019 Instruction Type:Patient Education How to access health informa tion online - Detail Indication:Non-smoker Start:13-Mar-2019 Instruction Type:Patient Education Patient Instructions Indication:Non-smoker Start:13-Mar-2019 Instruction Type:Provider Instructions for Treatment How to access health informa tion online Indication:Non-smoker Start:12-Sep-2018 Instruction Type:Patient Education How to access health informa tion online - Detail Indication:Non-smoker Start:12-Sep-2018 Instruction Type:Patient Education Patient Instructions Indication:Non-smoker Start:12-Sep-2018 Instruction Type:Provider Instructions for Treatment How to access health informa tion online Indication:Current nonsmoker (Renamed from Current non-smoker) Start:22-Aug-2018 Instruction Type:Patient Education How to access health informa tion online - Detail Indication:Current nonsmoker (Renamed from Current non-smoker) Start:22-Aug-2018 Instruction Type:Patient Education Patient Instructions Indication:Current nonsmoker (Renamed from Current non-smoker) Start:22-Aug-2018 Instruction Type:Provider Instructions for Treatment How to access health informa tion online Indication:Current nonsmoker (Renamed from Current non-smoker) Start:26-Apr-2018 Instruction Type:Patient Education How to access health informa tion online - Detail Indication:Current nonsmoker (Renamed from Current non-smoker) Start:26-Apr-2018 Instruction Type:Patient Education Patient Instructions Indication:Current nonsmoker (Renamed from Current non-smoker) Start:26-Apr-2018 Instruction Type:Provider Instructions for Treatment How to access health informa tion online Indication:Current nonsmoker (Renamed from Current non-smoker) Start:19-Apr-2018 Instruction Type:Patient Education How to access health informa tion online - Detail Indication:Current nonsmoker (Renamed from Current non-smoker) Start:19-Apr-2018 Instruction Type:Patient Education Patient Instructions Indication:Current nonsmoker (Renamed from Current non-smoker) Start:19-Apr-2018 Instruction Type:Provider Instructions for Treatment How to access health informa tion online Indication:Current nonsmoker (Renamed from Current non-smoker) Start:27-Jun-2017 Instruction Type:Patient Education How to access health informa tion online - Detail Indication:Current nonsmoker (Renamed from Current non-smoker) Start:27-Jun-2017 Instruction Type:Patient Education Patient Instructions Indication:Current nonsmoker (Renamed from Current non-smoker) Start:27-Jun-2017 Instruction Type:Provider Instructions for Treatment How to access health informa tion online Indication:Current nonsmoker (Renamed from Current non-smoker) Start:26-Apr-2017 Instruction Type:Patient Education How to access health informa tion online - Detail Indication:Current nonsmoker (Renamed from Current non-smoker) Start:26-Apr-2017 Instruction Type:Patient Education Patient Instructions Indication:Current nonsmoker (Renamed from Current non-smoker) Start:26-Apr-2017 Instruction Type:Provider Instructions for Treatment How to access health informa tion online Indication:Current nonsmoker (Renamed from Current non-smoker) Start:02-Mar-2017 Instruction Type:Patient Education How to access health informa tion online - Detail Indication:Current nonsmoker (Renamed from Current non-smoker) Start:02-Mar-2017 Instruction Type:Patient Education Patient Instructions Indication:Current nonsmoker (Renamed from Current non-smoker) Start:02-Mar-2017 Instruction Type:Provider Instructions for Treatment Patient Instructions Indication:Current nonsmoker (Renamed from Current non-smoker) Start:01-Feb-2017 Instruction Type:Provider Instructions for Treatment How to access health informa tion online Indication:Current nonsmoker (Renamed from Current non-smoker) Start:01-Feb-2017 Instruction Type:Patient Education How to access health informa tion online - Detail Indication:Current nonsmoker (Renamed from Current non-smoker) Start:01-Feb-2017 Instruction Type:Patient Education How to access health informa tion online Indication:Dysuria Start:25-Jan-2017 Instruction Type:Patient Education How to access health informa tion online - Detail Indication:Dysuria Start:25-Jan-2017 Instruction Type:Patient Education Patient Instructions Indication:Dysuria Start:25-Jan-2017 Instruction Type:Provider Instructions for Treatment How to access health informa tion online Indication:Hypertension Start:28-Dec-2016 Instruction Type:Patient Education How to access health informa tion online - Detail Indication:Hypertension Start:28-Dec-2016 Instruction Type:Patient Education Patient Instructions Indication:Hypertension Start:28-Dec-2016 Instruction Type:Provider Instructions for Treatment How to access health informa tion online Indication:Hypertension Start:14-Dec-2016 Instruction Type:Patient Education How to access health informa tion online - Detail Indication:Hypertension Start:14-Dec-2016 Instruction Type:Patient Education Patient Instructions Indication:Hypertension Start:14-Dec-2016 Instruction Type:Provider Instructions for Treatment How to access health informa tion online Indication:Cough Start:25-Jul-2016 Instruction Type:Patient Education How to access health informa tion online - Detail Indication:Cough Start:25-Jul-2016 Instruction Type:Patient Education Patient Instructions Indication:Cough Start:25-Jul-2016 Instruction Type:Provider Instructions for Treatment Name Dates Details How to access health informa tion online Indication:Non-smoker Start:09-Oct-2019 Instruction Type:Patient Education How to access health informa tion online - Detail Indication:Non-smoker Start:09-Oct-2019 Instruction Type:Patient Education Patient Instructions Indication:Non-smoker Start:09-Oct-2019 Instruction Type:Provider Instructions for Treatment How to access health informa tion online Indication:Non-smoker Start:08-May-2019 Instruction Type:Patient Education How to access health informa tion online - Detail Indication:Non-smoker Start:08-May-2019 Instruction Type:Patient Education Patient Instructions Indication:Non-smoker Start:08-May-2019 Instruction Type:Provider Instructions for Treatment How to access health informa tion online Indication:Non-smoker Start:13-Mar-2019 Instruction Type:Patient Education How to access health informa tion online - Detail Indication:Non-smoker Start:13-Mar-2019 Instruction Type:Patient Education Patient Instructions Indication:Non-smoker Start:13-Mar-2019 Instruction Type:Provider Instructions for Treatment How to access health informa tion online Indication:Non-smoker Start:12-Sep-2018 Instruction Type:Patient Education How to access health informa tion online - Detail Indication:Non-smoker Start:12-Sep-2018 Instruction Type:Patient Education Patient Instructions Indication:Non-smoker Start:12-Sep-2018 Instruction Type:Provider Instructions for Treatment How to access health informa tion online Indication:Current nonsmoker (Renamed from Current non-smoker) Start:22-Aug-2018 Instruction Type:Patient Education How to access health informa tion online - Detail Indication:Current nonsmoker (Renamed from Current non-smoker) Start:22-Aug-2018 Instruction Type:Patient Education Patient Instructions Indication:Current nonsmoker (Renamed from Current non-smoker) Start:22-Aug-2018 Instruction Type:Provider Instructions for Treatment How to access health informa tion online Indication:Current nonsmoker (Renamed from Current non-smoker) Start:26-Apr-2018 Instruction Type:Patient Education How to access health informa tion online - Detail Indication:Current nonsmoker (Renamed from Current non-smoker) Start:26-Apr-2018 Instruction Type:Patient Education Patient Instructions Indication:Current nonsmoker (Renamed from Current non-smoker) Start:26-Apr-2018 Instruction Type:Provider Instructions for Treatment How to access health informa tion online Indication:Current nonsmoker (Renamed from Current non-smoker) Start:19-Apr-2018 Instruction Type:Patient Education How to access health informa tion online - Detail Indication:Current nonsmoker (Renamed from Current non-smoker) Start:19-Apr-2018 Instruction Type:Patient Education Patient Instructions Indication:Current nonsmoker (Renamed from Current non-smoker) Start:19-Apr-2018 Instruction Type:Provider Instructions for Treatment How to access health informa tion online Indication:Current nonsmoker (Renamed from Current non-smoker) Start:27-Jun-2017 Instruction Type:Patient Education How to access health informa tion online - Detail Indication:Current nonsmoker (Renamed from Current non-smoker) Start:27-Jun-2017 Instruction Type:Patient Education Patient Instructions Indication:Current nonsmoker (Renamed from Current non-smoker) Start:27-Jun-2017 Instruction Type:Provider Instructions for Treatment How to access health informa tion online Indication:Current nonsmoker (Renamed from Current non-smoker) Start:26-Apr-2017 Instruction Type:Patient Education How to access health informa tion online - Detail Indication:Current nonsmoker (Renamed from Current non-smoker) Start:26-Apr-2017 Instruction Type:Patient Education Patient Instructions Indication:Current nonsmoker (Renamed from Current non-smoker) Start:26-Apr-2017 Instruction Type:Provider Instructions for Treatment How to access health informa tion online Indication:Current nonsmoker (Renamed from Current non-smoker) Start:02-Mar-2017 Instruction Type:Patient Education How to access health informa tion online - Detail Indication:Current nonsmoker (Renamed from Current non-smoker) Start:02-Mar-2017 Instruction Type:Patient Education Patient Instructions Indication:Current nonsmoker (Renamed from Current non-smoker) Start:02-Mar-2017 Instruction Type:Provider Instructions for Treatment Patient Instructions Indication:Current nonsmoker (Renamed from Current non-smoker) Start:01-Feb-2017 Instruction Type:Provider Instructions for Treatment How to access health informa tion online Indication:Current nonsmoker (Renamed from Current non-smoker) Start:01-Feb-2017 Instruction Type:Patient Education How to access health informa tion online - Detail Indication:Current nonsmoker (Renamed from Current non-smoker) Start:01-Feb-2017 Instruction Type:Patient Education How to access health informa tion online Indication:Dysuria Start:25-Jan-2017 Instruction Type:Patient Education How to access health informa tion online - Detail Indication:Dysuria Start:25-Jan-2017 Instruction Type:Patient Education Patient Instructions Indication:Dysuria Start:25-Jan-2017 Instruction Type:Provider Instructions for Treatment How to access health informa tion online Indication:Hypertension Start:28-Dec-2016 Instruction Type:Patient Education How to access health informa tion online - Detail Indication:Hypertension Start:28-Dec-2016 Instruction Type:Patient Education Patient Instructions Indication:Hypertension Start:28-Dec-2016 Instruction Type:Provider Instructions for Treatment How to access health informa tion online Indication:Hypertension Start:14-Dec-2016 Instruction Type:Patient Education How to access health informa tion online - Detail Indication:Hypertension Start:14-Dec-2016 Instruction Type:Patient Education Patient Instructions Indication:Hypertension Start:14-Dec-2016 Instruction Type:Provider Instructions for Treatment How to access health informa tion online Indication:Cough Start:25-Jul-2016 Instruction Type:Patient Education How to access health informa tion online - Detail Indication:Cough Start:25-Jul-2016 Instruction Type:Patient Education Patient Instructions Indication:Cough Start:25-Jul-2016 Instruction Type:Provider Instructions for Treatment Name Dates Details How to access health informa tion online Indication:Non-smoker Start:14-Jun-2020 Instruction Type:Patient Education How to access health informa tion online - Detail Indication:Non-smoker Start:14-Jun-2020 Instruction Type:Patient Education Patient Instructions Indication:Non-smoker Start:14-Jun-2020 Instruction Type:Provider Instructions for Treatment How to access health informa tion online Indication:Non-smoker Start:21-Apr-2020 Instruction Type:Patient Education How to access health informa tion online - Detail Indication:Non-smoker Start:21-Apr-2020 Instruction Type:Patient Education Patient Instructions Indication:Non-smoker Start:21-Apr-2020 Instruction Type:Provider Instructions for Treatment How to access health informa tion online Indication:BMI 28.0-28.9,adult Start:19-Dec-2019 Instruction Type:Patient Education How to access health informa tion online - Detail Indication:BMI 28.0-28.9,adult Start:19-Dec-2019 Instruction Type:Patient Education Patient Instructions Indication:BMI 28.0-28.9,adult Start:19-Dec-2019 Instruction Type:Provider Instructions for Treatment How to access health informa tion online Indication:Non-smoker Start:09-Oct-2019 Instruction Type:Patient Education How to access health informa tion online - Detail Indication:Non-smoker Start:09-Oct-2019 Instruction Type:Patient Education Patient Instructions Indication:Non-smoker Start:09-Oct-2019 Instruction Type:Provider Instructions for Treatment How to access health informa tion online Indication:Non-smoker Start:08-May-2019 Instruction Type:Patient Education How to access health informa tion online - Detail Indication:Non-smoker Start:08-May-2019 Instruction Type:Patient Education Patient Instructions Indication:Non-smoker Start:08-May-2019 Instruction Type:Provider Instructions for Treatment How to access health informa tion online Indication:Non-smoker Start:13-Mar-2019 Instruction Type:Patient Education How to access health informa tion online - Detail Indication:Non-smoker Start:13-Mar-2019 Instruction Type:Patient Education Patient Instructions Indication:Non-smoker Start:13-Mar-2019 Instruction Type:Provider Instructions for Treatment How to access health informa tion online Indication:Non-smoker Start:12-Sep-2018 Instruction Type:Patient Education How to access health informa tion online - Detail Indication:Non-smoker Start:12-Sep-2018 Instruction Type:Patient Education Patient Instructions Indication:Non-smoker Start:12-Sep-2018 Instruction Type:Provider Instructions for Treatment How to access health informa tion online Indication:Current nonsmoker (Renamed from Current non-smoker) Start:22-Aug-2018 Instruction Type:Patient Education How to access health informa tion online - Detail Indication:Current nonsmoker (Renamed from Current non-smoker) Start:22-Aug-2018 Instruction Type:Patient Education Patient Instructions Indication:Current nonsmoker (Renamed from Current non-smoker) Start:22-Aug-2018 Instruction Type:Provider Instructions for Treatment How to access health informa tion online Indication:Current nonsmoker (Renamed from Current non-smoker) Start:26-Apr-2018 Instruction Type:Patient Education How to access health informa tion online - Detail Indication:Current nonsmoker (Renamed from Current non-smoker) Start:26-Apr-2018 Instruction Type:Patient Education Patient Instructions Indication:Current nonsmoker (Renamed from Current non-smoker) Start:26-Apr-2018 Instruction Type:Provider Instructions for Treatment How to access health informa tion online Indication:Current nonsmoker (Renamed from Current non-smoker) Start:19-Apr-2018 Instruction Type:Patient Education How to access health informa tion online - Detail Indication:Current nonsmoker (Renamed from Current non-smoker) Start:19-Apr-2018 Instruction Type:Patient Education Patient Instructions Indication:Current nonsmoker (Renamed from Current non-smoker) Start:19-Apr-2018 Instruction Type:Provider Instructions for Treatment How to access health informa tion online Indication:Current nonsmoker (Renamed from Current non-smoker) Start:27-Jun-2017 Instruction Type:Patient Education How to access health informa tion online - Detail Indication:Current nonsmoker (Renamed from Current non-smoker) Start:27-Jun-2017 Instruction Type:Patient Education Patient Instructions Indication:Current nonsmoker (Renamed from Current non-smoker) Start:27-Jun-2017 Instruction Type:Provider Instructions for Treatment How to access health informa tion online Indication:Current nonsmoker (Renamed from Current non-smoker) Start:26-Apr-2017 Instruction Type:Patient Education How to access health informa tion online - Detail Indication:Current nonsmoker (Renamed from Current non-smoker) Start:26-Apr-2017 Instruction Type:Patient Education Patient Instructions Indication:Current nonsmoker (Renamed from Current non-smoker) Start:26-Apr-2017 Instruction Type:Provider Instructions for Treatment How to access health informa tion online Indication:Current nonsmoker (Renamed from Current non-smoker) Start:02-Mar-2017 Instruction Type:Patient Education How to access health informa tion online - Detail Indication:Current nonsmoker (Renamed from Current non-smoker) Start:02-Mar-2017 Instruction Type:Patient Education Patient Instructions Indication:Current nonsmoker (Renamed from Current non-smoker) Start:02-Mar-2017 Instruction Type:Provider Instructions for Treatment Patient Instructions Indication:Current nonsmoker (Renamed from Current non-smoker) Start:01-Feb-2017 Instruction Type:Provider Instructions for Treatment How to access health informa tion online Indication:Current nonsmoker (Renamed from Current non-smoker) Start:01-Feb-2017 Instruction Type:Patient Education How to access health informa tion online - Detail Indication:Current nonsmoker (Renamed from Current non-smoker) Start:01-Feb-2017 Instruction Type:Patient Education How to access health informa tion online Indication:Dysuria Start:25-Jan-2017 Instruction Type:Patient Education How to access health informa tion online - Detail Indication:Dysuria Start:25-Jan-2017 Instruction Type:Patient Education Patient Instructions Indication:Dysuria Start:25-Jan-2017 Instruction Type:Provider Instructions for Treatment How to access health informa tion online Indication:Hypertension Start:28-Dec-2016 Instruction Type:Patient Education How to access health informa tion online - Detail Indication:Hypertension Start:28-Dec-2016 Instruction Type:Patient Education Patient Instructions Indication:Hypertension Start:28-Dec-2016 Instruction Type:Provider Instructions for Treatment How to access health informa tion online Indication:Hypertension Start:14-Dec-2016 Instruction Type:Patient Education How to access health informa tion online - Detail Indication:Hypertension Start:14-Dec-2016 Instruction Type:Patient Education Patient Instructions Indication:Hypertension Start:14-Dec-2016 Instruction Type:Provider Instructions for Treatment How to access health informa tion online Indication:Cough Start:25-Jul-2016 Instruction Type:Patient Education How to access health informa tion online - Detail Indication:Cough Start:25-Jul-2016 Instruction Type:Patient Education Patient Instructions Indication:Cough Start:25-Jul-2016 Instruction Type:Provider Instructions for Treatment Name Dates Details How to access health informa tion online Indication:Non-smoker Start:21-Apr-2020 Instruction Type:Patient Education How to access health informa tion online - Detail Indication:Non-smoker Start:21-Apr-2020 Instruction Type:Patient Education Patient Instructions Indication:Non-smoker Start:21-Apr-2020 Instruction Type:Provider Instructions for Treatment How to access health informa tion online Indication:BMI 28.0-28.9,adult Start:19-Dec-2019 Instruction Type:Patient Education How to access health informa tion online - Detail Indication:BMI 28.0-28.9,adult Start:19-Dec-2019 Instruction Type:Patient Education Patient Instructions Indication:BMI 28.0-28.9,adult Start:19-Dec-2019 Instruction Type:Provider Instructions for Treatment How to access health informa tion online Indication:Non-smoker Start:09-Oct-2019 Instruction Type:Patient Education How to access health informa tion online - Detail Indication:Non-smoker Start:09-Oct-2019 Instruction Type:Patient Education Patient Instructions Indication:Non-smoker Start:09-Oct-2019 Instruction Type:Provider Instructions for Treatment How to access health informa tion online Indication:Non-smoker Start:08-May-2019 Instruction Type:Patient Education How to access health informa tion online - Detail Indication:Non-smoker Start:08-May-2019 Instruction Type:Patient Education Patient Instructions Indication:Non-smoker Start:08-May-2019 Instruction Type:Provider Instructions for Treatment How to access health informa tion online Indication:Non-smoker Start:13-Mar-2019 Instruction Type:Patient Education How to access health informa tion online - Detail Indication:Non-smoker Start:13-Mar-2019 Instruction Type:Patient Education Patient Instructions Indication:Non-smoker Start:13-Mar-2019 Instruction Type:Provider Instructions for Treatment How to access health informa tion online Indication:Non-smoker Start:12-Sep-2018 Instruction Type:Patient Education How to access health informa tion online - Detail Indication:Non-smoker Start:12-Sep-2018 Instruction Type:Patient Education Patient Instructions Indication:Non-smoker Start:12-Sep-2018 Instruction Type:Provider Instructions for Treatment How to access health informa tion online Indication:Current nonsmoker (Renamed from Current non-smoker) Start:22-Aug-2018 Instruction Type:Patient Education How to access health informa tion online - Detail Indication:Current nonsmoker (Renamed from Current non-smoker) Start:22-Aug-2018 Instruction Type:Patient Education Patient Instructions Indication:Current nonsmoker (Renamed from Current non-smoker) Start:22-Aug-2018 Instruction Type:Provider Instructions for Treatment How to access health informa tion online Indication:Current nonsmoker (Renamed from Current non-smoker) Start:26-Apr-2018 Instruction Type:Patient Education How to access health informa tion online - Detail Indication:Current nonsmoker (Renamed from Current non-smoker) Start:26-Apr-2018 Instruction Type:Patient Education Patient Instructions Indication:Current nonsmoker (Renamed from Current non-smoker) Start:26-Apr-2018 Instruction Type:Provider Instructions for Treatment How to access health informa tion online Indication:Current nonsmoker (Renamed from Current non-smoker) Start:19-Apr-2018 Instruction Type:Patient Education How to access health informa tion online - Detail Indication:Current nonsmoker (Renamed from Current non-smoker) Start:19-Apr-2018 Instruction Type:Patient Education Patient Instructions Indication:Current nonsmoker (Renamed from Current non-smoker) Start:19-Apr-2018 Instruction Type:Provider Instructions for Treatment How to access health informa tion online Indication:Current nonsmoker (Renamed from Current non-smoker) Start:27-Jun-2017 Instruction Type:Patient Education How to access health informa tion online - Detail Indication:Current nonsmoker (Renamed from Current non-smoker) Start:27-Jun-2017 Instruction Type:Patient Education Patient Instructions Indication:Current nonsmoker (Renamed from Current non-smoker) Start:27-Jun-2017 Instruction Type:Provider Instructions for Treatment How to access health informa tion online Indication:Current nonsmoker (Renamed from Current non-smoker) Start:26-Apr-2017 Instruction Type:Patient Education How to access health informa tion online - Detail Indication:Current nonsmoker (Renamed from Current non-smoker) Start:26-Apr-2017 Instruction Type:Patient Education Patient Instructions Indication:Current nonsmoker (Renamed from Current non-smoker) Start:26-Apr-2017 Instruction Type:Provider Instructions for Treatment How to access health informa tion online Indication:Current nonsmoker (Renamed from Current non-smoker) Start:02-Mar-2017 Instruction Type:Patient Education How to access health informa tion online - Detail Indication:Current nonsmoker (Renamed from Current non-smoker) Start:02-Mar-2017 Instruction Type:Patient Education Patient Instructions Indication:Current nonsmoker (Renamed from Current non-smoker) Start:02-Mar-2017 Instruction Type:Provider Instructions for Treatment Patient Instructions Indication:Current nonsmoker (Renamed from Current non-smoker) Start:01-Feb-2017 Instruction Type:Provider Instructions for Treatment How to access health informa tion online Indication:Current nonsmoker (Renamed from Current non-smoker) Start:01-Feb-2017 Instruction Type:Patient Education How to access health informa tion online - Detail Indication:Current nonsmoker (Renamed from Current non-smoker) Start:01-Feb-2017 Instruction Type:Patient Education How to access health informa tion online Indication:Dysuria Start:25-Jan-2017 Instruction Type:Patient Education How to access health informa tion online - Detail Indication:Dysuria Start:25-Jan-2017 Instruction Type:Patient Education Patient Instructions Indication:Dysuria Start:25-Jan-2017 Instruction Type:Provider Instructions for Treatment How to access health informa tion online Indication:Hypertension Start:28-Dec-2016 Instruction Type:Patient Education How to access health informa tion online - Detail Indication:Hypertension Start:28-Dec-2016 Instruction Type:Patient Education Patient Instructions Indication:Hypertension Start:28-Dec-2016 Instruction Type:Provider Instructions for Treatment How to access health informa tion online Indication:Hypertension Start:14-Dec-2016 Instruction Type:Patient Education How to access health informa tion online - Detail Indication:Hypertension Start:14-Dec-2016 Instruction Type:Patient Education Patient Instructions Indication:Hypertension Start:14-Dec-2016 Instruction Type:Provider Instructions for Treatment How to access health informa tion online Indication:Cough Start:25-Jul-2016 Instruction Type:Patient Education How to access health informa tion online - Detail Indication:Cough Start:25-Jul-2016 Instruction Type:Patient Education Patient Instructions Indication:Cough Start:25-Jul-2016 Instruction Type:Provider Instructions for Treatment Name Dates Details How to access health informa tion online Indication:Non-smoker Start:08-May-2019 Instruction Type:Patient Education How to access health informa tion online - Detail Indication:Non-smoker Start:08-May-2019 Instruction Type:Patient Education Patient Instructions Indication:Non-smoker Start:08-May-2019 Instruction Type:Provider Instructions for Treatment How to access health informa tion online Indication:Non-smoker Start:13-Mar-2019 Instruction Type:Patient Education How to access health informa tion online - Detail Indication:Non-smoker Start:13-Mar-2019 Instruction Type:Patient Education Patient Instructions Indication:Non-smoker Start:13-Mar-2019 Instruction Type:Provider Instructions for Treatment How to access health informa tion online Indication:Non-smoker Start:12-Sep-2018 Instruction Type:Patient Education How to access health informa tion online - Detail Indication:Non-smoker Start:12-Sep-2018 Instruction Type:Patient Education Patient Instructions Indication:Non-smoker Start:12-Sep-2018 Instruction Type:Provider Instructions for Treatment How to access health informa tion online Indication:Current nonsmoker (Renamed from Current non-smoker) Start:22-Aug-2018 Instruction Type:Patient Education How to access health informa tion online - Detail Indication:Current nonsmoker (Renamed from Current non-smoker) Start:22-Aug-2018 Instruction Type:Patient Education Patient Instructions Indication:Current nonsmoker (Renamed from Current non-smoker) Start:22-Aug-2018 Instruction Type:Provider Instructions for Treatment How to access health informa tion online Indication:Current nonsmoker (Renamed from Current non-smoker) Start:26-Apr-2018 Instruction Type:Patient Education How to access health informa tion online - Detail Indication:Current nonsmoker (Renamed from Current non-smoker) Start:26-Apr-2018 Instruction Type:Patient Education Patient Instructions Indication:Current nonsmoker (Renamed from Current non-smoker) Start:26-Apr-2018 Instruction Type:Provider Instructions for Treatment How to access health informa tion online Indication:Current nonsmoker (Renamed from Current non-smoker) Start:19-Apr-2018 Instruction Type:Patient Education How to access health informa tion online - Detail Indication:Current nonsmoker (Renamed from Current non-smoker) Start:19-Apr-2018 Instruction Type:Patient Education Patient Instructions Indication:Current nonsmoker (Renamed from Current non-smoker) Start:19-Apr-2018 Instruction Type:Provider Instructions for Treatment How to access health informa tion online Indication:Current nonsmoker (Renamed from Current non-smoker) Start:27-Jun-2017 Instruction Type:Patient Education How to access health informa tion online - Detail Indication:Current nonsmoker (Renamed from Current non-smoker) Start:27-Jun-2017 Instruction Type:Patient Education Patient Instructions Indication:Current nonsmoker (Renamed from Current non-smoker) Start:27-Jun-2017 Instruction Type:Provider Instructions for Treatment How to access health informa tion online Indication:Current nonsmoker (Renamed from Current non-smoker) Start:26-Apr-2017 Instruction Type:Patient Education How to access health informa tion online - Detail Indication:Current nonsmoker (Renamed from Current non-smoker) Start:26-Apr-2017 Instruction Type:Patient Education Patient Instructions Indication:Current nonsmoker (Renamed from Current non-smoker) Start:26-Apr-2017 Instruction Type:Provider Instructions for Treatment How to access health informa tion online Indication:Current nonsmoker (Renamed from Current non-smoker) Start:02-Mar-2017 Instruction Type:Patient Education How to access health informa tion online - Detail Indication:Current nonsmoker (Renamed from Current non-smoker) Start:02-Mar-2017 Instruction Type:Patient Education Patient Instructions Indication:Current nonsmoker (Renamed from Current non-smoker) Start:02-Mar-2017 Instruction Type:Provider Instructions for Treatment Patient Instructions Indication:Current nonsmoker (Renamed from Current non-smoker) Start:01-Feb-2017 Instruction Type:Provider Instructions for Treatment How to access health informa tion online Indication:Current nonsmoker (Renamed from Current non-smoker) Start:01-Feb-2017 Instruction Type:Patient Education How to access health informa tion online - Detail Indication:Current nonsmoker (Renamed from Current non-smoker) Start:01-Feb-2017 Instruction Type:Patient Education How to access health informa tion online Indication:Dysuria Start:25-Jan-2017 Instruction Type:Patient Education How to access health informa tion online - Detail Indication:Dysuria Start:25-Jan-2017 Instruction Type:Patient Education Patient Instructions Indication:Dysuria Start:25-Jan-2017 Instruction Type:Provider Instructions for Treatment How to access health informa tion online Indication:Hypertension Start:28-Dec-2016 Instruction Type:Patient Education How to access health informa tion online - Detail Indication:Hypertension Start:28-Dec-2016 Instruction Type:Patient Education Patient Instructions Indication:Hypertension Start:28-Dec-2016 Instruction Type:Provider Instructions for Treatment How to access health informa tion online Indication:Hypertension Start:14-Dec-2016 Instruction Type:Patient Education How to access health informa tion online - Detail Indication:Hypertension Start:14-Dec-2016 Instruction Type:Patient Education Patient Instructions Indication:Hypertension Start:14-Dec-2016 Instruction Type:Provider Instructions for Treatment How to access health informa tion online Indication:Cough Start:25-Jul-2016 Instruction Type:Patient Education How to access health informa tion online - Detail Indication:Cough Start:25-Jul-2016 Instruction Type:Patient Education Patient Instructions Indication:Cough Start:25-Jul-2016 Instruction Type:Provider Instructions for Treatment Name Dates Details How to access health informa tion online Indication:Non-smoker Start:08-May-2019 Instruction Type:Patient Education How to access health informa tion online - Detail Indication:Non-smoker Start:08-May-2019 Instruction Type:Patient Education Patient Instructions Indication:Non-smoker Start:08-May-2019 Instruction Type:Provider Instructions for Treatment How to access health informa tion online Indication:Non-smoker Start:13-Mar-2019 Instruction Type:Patient Education How to access health informa tion online - Detail Indication:Non-smoker Start:13-Mar-2019 Instruction Type:Patient Education Patient Instructions Indication:Non-smoker Start:13-Mar-2019 Instruction Type:Provider Instructions for Treatment How to access health informa tion online Indication:Non-smoker Start:12-Sep-2018 Instruction Type:Patient Education How to access health informa tion online - Detail Indication:Non-smoker Start:12-Sep-2018 Instruction Type:Patient Education Patient Instructions Indication:Non-smoker Start:12-Sep-2018 Instruction Type:Provider Instructions for Treatment How to access health informa tion online Indication:Current nonsmoker (Renamed from Current non-smoker) Start:22-Aug-2018 Instruction Type:Patient Education How to access health informa tion online - Detail Indication:Current nonsmoker (Renamed from Current non-smoker) Start:22-Aug-2018 Instruction Type:Patient Education Patient Instructions Indication:Current nonsmoker (Renamed from Current non-smoker) Start:22-Aug-2018 Instruction Type:Provider Instructions for Treatment How to access health informa tion online Indication:Current nonsmoker (Renamed from Current non-smoker) Start:26-Apr-2018 Instruction Type:Patient Education How to access health informa tion online - Detail Indication:Current nonsmoker (Renamed from Current non-smoker) Start:26-Apr-2018 Instruction Type:Patient Education Patient Instructions Indication:Current nonsmoker (Renamed from Current non-smoker) Start:26-Apr-2018 Instruction Type:Provider Instructions for Treatment How to access health informa tion online Indication:Current nonsmoker (Renamed from Current non-smoker) Start:19-Apr-2018 Instruction Type:Patient Education How to access health informa tion online - Detail Indication:Current nonsmoker (Renamed from Current non-smoker) Start:19-Apr-2018 Instruction Type:Patient Education Patient Instructions Indication:Current nonsmoker (Renamed from Current non-smoker) Start:19-Apr-2018 Instruction Type:Provider Instructions for Treatment How to access health informa tion online Indication:Current nonsmoker (Renamed from Current non-smoker) Start:27-Jun-2017 Instruction Type:Patient Education How to access health informa tion online - Detail Indication:Current nonsmoker (Renamed from Current non-smoker) Start:27-Jun-2017 Instruction Type:Patient Education Patient Instructions Indication:Current nonsmoker (Renamed from Current non-smoker) Start:27-Jun-2017 Instruction Type:Provider Instructions for Treatment How to access health informa tion online Indication:Current nonsmoker (Renamed from Current non-smoker) Start:26-Apr-2017 Instruction Type:Patient Education How to access health informa tion online - Detail Indication:Current nonsmoker (Renamed from Current non-smoker) Start:26-Apr-2017 Instruction Type:Patient Education Patient Instructions Indication:Current nonsmoker (Renamed from Current non-smoker) Start:26-Apr-2017 Instruction Type:Provider Instructions for Treatment How to access health informa tion online Indication:Current nonsmoker (Renamed from Current non-smoker) Start:02-Mar-2017 Instruction Type:Patient Education How to access health informa tion online - Detail Indication:Current nonsmoker (Renamed from Current non-smoker) Start:02-Mar-2017 Instruction Type:Patient Education Patient Instructions Indication:Current nonsmoker (Renamed from Current non-smoker) Start:02-Mar-2017 Instruction Type:Provider Instructions for Treatment Patient Instructions Indication:Current nonsmoker (Renamed from Current non-smoker) Start:01-Feb-2017 Instruction Type:Provider Instructions for Treatment How to access health informa tion online Indication:Current nonsmoker (Renamed from Current non-smoker) Start:01-Feb-2017 Instruction Type:Patient Education How to access health informa tion online - Detail Indication:Current nonsmoker (Renamed from Current non-smoker) Start:01-Feb-2017 Instruction Type:Patient Education How to access health informa tion online Indication:Dysuria Start:25-Jan-2017 Instruction Type:Patient Education How to access health informa tion online - Detail Indication:Dysuria Start:25-Jan-2017 Instruction Type:Patient Education Patient Instructions Indication:Dysuria Start:25-Jan-2017 Instruction Type:Provider Instructions for Treatment How to access health informa tion online Indication:Hypertension Start:28-Dec-2016 Instruction Type:Patient Education How to access health informa tion online - Detail Indication:Hypertension Start:28-Dec-2016 Instruction Type:Patient Education Patient Instructions Indication:Hypertension Start:28-Dec-2016 Instruction Type:Provider Instructions for Treatment How to access health informa tion online Indication:Hypertension Start:14-Dec-2016 Instruction Type:Patient Education How to access health informa tion online - Detail Indication:Hypertension Start:14-Dec-2016 Instruction Type:Patient Education Patient Instructions Indication:Hypertension Start:14-Dec-2016 Instruction Type:Provider Instructions for Treatment How to access health informa tion online Indication:Cough Start:25-Jul-2016 Instruction Type:Patient Education How to access health informa tion online - Detail Indication:Cough Start:25-Jul-2016 Instruction Type:Patient Education Patient Instructions Indication:Cough Start:25-Jul-2016 Instruction Type:Provider Instructions for Treatment Name Dates Details How to access health informa tion online Indication:Non-smoker Start:14-Jun-2020 Instruction Type:Patient Education How to access health informa tion online - Detail Indication:Non-smoker Start:14-Jun-2020 Instruction Type:Patient Education Patient Instructions Indication:Non-smoker Start:14-Jun-2020 Instruction Type:Provider Instructions for Treatment How to access health informa tion online Indication:Non-smoker Start:21-Apr-2020 Instruction Type:Patient Education How to access health informa tion online - Detail Indication:Non-smoker Start:21-Apr-2020 Instruction Type:Patient Education Patient Instructions Indication:Non-smoker Start:21-Apr-2020 Instruction Type:Provider Instructions for Treatment How to access health informa tion online Indication:BMI 28.0-28.9,adult Start:19-Dec-2019 Instruction Type:Patient Education How to access health informa tion online - Detail Indication:BMI 28.0-28.9,adult Start:19-Dec-2019 Instruction Type:Patient Education Patient Instructions Indication:BMI 28.0-28.9,adult Start:19-Dec-2019 Instruction Type:Provider Instructions for Treatment How to access health informa tion online Indication:Non-smoker Start:09-Oct-2019 Instruction Type:Patient Education How to access health informa tion online - Detail Indication:Non-smoker Start:09-Oct-2019 Instruction Type:Patient Education Patient Instructions Indication:Non-smoker Start:09-Oct-2019 Instruction Type:Provider Instructions for Treatment How to access health informa tion online Indication:Non-smoker Start:08-May-2019 Instruction Type:Patient Education How to access health informa tion online - Detail Indication:Non-smoker Start:08-May-2019 Instruction Type:Patient Education Patient Instructions Indication:Non-smoker Start:08-May-2019 Instruction Type:Provider Instructions for Treatment How to access health informa tion online Indication:Non-smoker Start:13-Mar-2019 Instruction Type:Patient Education How to access health informa tion online - Detail Indication:Non-smoker Start:13-Mar-2019 Instruction Type:Patient Education Patient Instructions Indication:Non-smoker Start:13-Mar-2019 Instruction Type:Provider Instructions for Treatment How to access health informa tion online Indication:Non-smoker Start:12-Sep-2018 Instruction Type:Patient Education How to access health informa tion online - Detail Indication:Non-smoker Start:12-Sep-2018 Instruction Type:Patient Education Patient Instructions Indication:Non-smoker Start:12-Sep-2018 Instruction Type:Provider Instructions for Treatment How to access health informa tion online Indication:Current nonsmoker (Renamed from Current non-smoker) Start:22-Aug-2018 Instruction Type:Patient Education How to access health informa tion online - Detail Indication:Current nonsmoker (Renamed from Current non-smoker) Start:22-Aug-2018 Instruction Type:Patient Education Patient Instructions Indication:Current nonsmoker (Renamed from Current non-smoker) Start:22-Aug-2018 Instruction Type:Provider Instructions for Treatment How to access health informa tion online Indication:Current nonsmoker (Renamed from Current non-smoker) Start:26-Apr-2018 Instruction Type:Patient Education How to access health informa tion online - Detail Indication:Current nonsmoker (Renamed from Current non-smoker) Start:26-Apr-2018 Instruction Type:Patient Education Patient Instructions Indication:Current nonsmoker (Renamed from Current non-smoker) Start:26-Apr-2018 Instruction Type:Provider Instructions for Treatment How to access health informa tion online Indication:Current nonsmoker (Renamed from Current non-smoker) Start:19-Apr-2018 Instruction Type:Patient Education How to access health informa tion online - Detail Indication:Current nonsmoker (Renamed from Current non-smoker) Start:19-Apr-2018 Instruction Type:Patient Education Patient Instructions Indication:Current nonsmoker (Renamed from Current non-smoker) Start:19-Apr-2018 Instruction Type:Provider Instructions for Treatment How to access health informa tion online Indication:Current nonsmoker (Renamed from Current non-smoker) Start:27-Jun-2017 Instruction Type:Patient Education How to access health informa tion online - Detail Indication:Current nonsmoker (Renamed from Current non-smoker) Start:27-Jun-2017 Instruction Type:Patient Education Patient Instructions Indication:Current nonsmoker (Renamed from Current non-smoker) Start:27-Jun-2017 Instruction Type:Provider Instructions for Treatment How to access health informa tion online Indication:Current nonsmoker (Renamed from Current non-smoker) Start:26-Apr-2017 Instruction Type:Patient Education How to access health informa tion online - Detail Indication:Current nonsmoker (Renamed from Current non-smoker) Start:26-Apr-2017 Instruction Type:Patient Education Patient Instructions Indication:Current nonsmoker (Renamed from Current non-smoker) Start:26-Apr-2017 Instruction Type:Provider Instructions for Treatment How to access health informa tion online Indication:Current nonsmoker (Renamed from Current non-smoker) Start:02-Mar-2017 Instruction Type:Patient Education How to access health informa tion online - Detail Indication:Current nonsmoker (Renamed from Current non-smoker) Start:02-Mar-2017 Instruction Type:Patient Education Patient Instructions Indication:Current nonsmoker (Renamed from Current non-smoker) Start:02-Mar-2017 Instruction Type:Provider Instructions for Treatment Patient Instructions Indication:Current nonsmoker (Renamed from Current non-smoker) Start:01-Feb-2017 Instruction Type:Provider Instructions for Treatment How to access health informa tion online Indication:Current nonsmoker (Renamed from Current non-smoker) Start:01-Feb-2017 Instruction Type:Patient Education How to access health informa tion online - Detail Indication:Current nonsmoker (Renamed from Current non-smoker) Start:01-Feb-2017 Instruction Type:Patient Education How to access health informa tion online Indication:Dysuria Start:25-Jan-2017 Instruction Type:Patient Education How to access health informa tion online - Detail Indication:Dysuria Start:25-Jan-2017 Instruction Type:Patient Education Patient Instructions Indication:Dysuria Start:25-Jan-2017 Instruction Type:Provider Instructions for Treatment How to access health informa tion online Indication:Hypertension Start:28-Dec-2016 Instruction Type:Patient Education How to access health informa tion online - Detail Indication:Hypertension Start:28-Dec-2016 Instruction Type:Patient Education Patient Instructions Indication:Hypertension Start:28-Dec-2016 Instruction Type:Provider Instructions for Treatment How to access health informa tion online Indication:Hypertension Start:14-Dec-2016 Instruction Type:Patient Education How to access health informa tion online - Detail Indication:Hypertension Start:14-Dec-2016 Instruction Type:Patient Education Patient Instructions Indication:Hypertension Start:14-Dec-2016 Instruction Type:Provider Instructions for Treatment How to access health informa tion online Indication:Cough Start:25-Jul-2016 Instruction Type:Patient Education How to access health informa tion online - Detail Indication:Cough Start:25-Jul-2016 Instruction Type:Patient Education Patient Instructions Indication:Cough Start:25-Jul-2016 Instruction Type:Provider Instructions for Treatment Additional Source Comments INFORMATION SOURCE (unrecogn ized section and content) DATE CREATED AUTHOR AUTHOR'S ORGANIZ ATION 05/22/2018 [facility] DATE CREATED AUTHOR AUTHOR'S ORGANIZ ATION 01/05/2023 [facility] FOR RECORDS PERTAINING TO PATIENTS WHO ARE OR HAVE BEEN ENROLLED IN A CHEMICAL DEPENDENCY/SUBSTANCEABUSE PROGRAM, SOME INFORMATION MAY BE OMITTED. This clinical summary was aggregated from multiple sources. Caution should be exercised in using it in the provision of clinical care. This summary normalizes information from multiple sources, and as a consequence, information in this document may materially change the coding, format and clinical context of patient data. In addition, data may be omitted in some cases. CLINICAL DECISIONS SHOULD BE BASED ON THE PRIMARY CLINICAL RECORDS. [employer] provides no warranty or guarantee of the accuracy or completeness of information in this document.
== END | disposition home or self-care (01) ==
LOC: LABSPEC 12:19
PROVIDERS: PCP Family Medicine; Referring Provider Podiatrist; Visit Provider Podiatrist
DX: C44.729 Squamous cell carcinoma of skin of left lower limb, including hip (principal)
CPT/HCPCS: 88305

== ENCOUNTER → 2024-02-21 | Outpatient (CLI) | payer MEDICARE, SELFPAY ==
--- NOTE | 2024-02-21 13:59 | ECHOD_ITS ---
Reason For Study: NONRHEUMATIC MR Procedure This was a 2D Doppler, Color Flow transthoracic echocardiogram. Exam performed in department. Left Ventricle Normal LV size. Apical false tendon noted. Left ventricular systolic function is normal. The estimated ejection fraction is 60 %. Stage 1 diastolic dysfunction. No regional wall motion abnormalities noted. Right Ventricle Normal RV size. Normal systolic function. Atria Normal left atrium. Normal right atrium. Mitral Valve Moderate focal mitral valve thickening. There is Moderate focal posterior mitral annular calcification. Tricuspid Valve Normal tricuspid valve. Mild (1+) tricuspid valve insufficiency. Pulmonary artery systolic pressure is 30 mmHg. Aortic Valve Trisinus/trileaflet aortic valve. Pulmonic Valve Normal pulmonic valve. Great Vessels Normal aortic root. The pulmonary artery is normal size. Inferior vena cava collapse with respiration. Pericardium/Pleural No pericardial effusion. MMode/2D Measurements & Calculations LVIDd: 4.6 cm IVSd: 1.0 cm Ao root diam: 3.3 cm LVIDs: 2.9 cm LVPWd: 1.00 cm RVDd: 2.9 cm FS: 36.4 % LAV(MOD-bp): 40.1 ml LVAd ap4: 23.7 cm2 LVAd ap2: 21.6 cm2 LAV(MOD-bp) Indexed: 24.5 ml/m2 LVLd ap4: 7.2 cm LVLd ap2: 6.3 cm LAV(MOD-sp2): 46.5 ml EDV(MOD-sp4): 64.9 ml EDV(MOD-sp2): 64.0 ml LAV(MOD-sp4): 33.3 ml EDV(sp4-el): 65.6 ml EDV(sp2-el): 62.9 ml LVAs ap4: 10.0 cm2 LVAs ap2: 6.7 cm2 LVLs ap4: 4.9 cm LVLs ap2: 4.5 cm ESV(MOD-sp4): 19.4 ml ESV(MOD-sp2): 9.5 ml ESV(sp4-el): 17.2 ml ESV(sp2-el): 8.4 ml EF(MOD-sp4): 70.1 % EF(MOD-sp2): 85.2 % EF(sp4-el): 73.7 % SV(MOD-sp4): 45.5 ml SV(MOD-sp2): 54.6 ml SV(sp4-el): 48.4 ml LA dimension(2D): 3.8 cm LA A4 area: 13.7 cm2 RA A4 area: 12.2 cm2 TAPSE: 2.6 cm Time Measurements MV dec time: 0.26 sec Doppler Measurements & Calculations MV E max amaury: 108.3 cm/sec Lat Peak E' Amaury: 6.2 cm/sec Med Peak E' Amaury: 5.8 cm/sec MV A max amaury: 130.8 cm/sec E/E' lat: 17.5 E/E' med: 18.7 MV E/A: 0.83 MV V2 max: 154.3 cm/sec MV P1/2t max amaury: 126.3 cm/sec Ao V2 max: 194.6 cm/sec MV max P.5 mmHg MV P1/2t: 86.1 msec Ao max P.2 mmHg MV V2 mean: 84.4 cm/sec MV dec slope: 429.4 cm/sec2 Ao V2 mean: 131.7 cm/sec MV mean P.3 mmHg Ao mean P.7 mmHg MV V2 VTI: 41.8 cm MVA(P1/2t): 2.6 cm2 Ao V2 VTI: 42.5 cm AV (velocity ratio): 0.70 LV V1 max: 119.8 cm/sec MR max amaury: 259.3 cm/sec PA V2 max: 102.5 cm/sec LV V1 max P.7 mmHg MR max P.9 mmHg PA V2 mean: 75.2 cm/sec LV V1 mean P.1 mmHg MR mean amaury: 0.00 cm/sec LV V1 mean: 82.9 cm/sec MR mean P.00 mmHg LV V1 VTI: 29.7 cm MR VTI: 0.00 cm TR max amaury: 256.9 cm/sec TR max P.4 mmHg
== END | disposition home or self-care (01) ==
LOC: CVS 13:58
PROVIDERS: PCP Family Medicine; Referring Provider Physician Assistant Medical; Visit Provider Physician Assistant Medical
DX: I34.0 Nonrheumatic mitral (valve) insufficiency (principal)
CPT/HCPCS: 93306

== ENCOUNTER → 2024-06-23 | Outpatient (CLI) | payer MEDICARE, SELFPAY ==
[2024-06-23 17:46] LABS: Absolute Lymphocyte Count 1.48 X10^3/uL (0.83-4.51); Absolute Neutrophil Count 5.4 X10^3/uL (2.0-7.7); Basophil# 0.05 X10^3/uL; Basophil% 0.6 % (0-1); Eosinophil# 0.16 X10^3/uL; Hemoglobin 11.6 g/dL (12.0-15.0); Lymphocyte # 1.48 X10^3/ul (0.83-4.51); Lymphocyte % 18.5 % (19-41); Mean Corp Hgb Conc 32.2 g/dL (32-36); Mean Corpuscular Hgb 29.8 pg (27.0-32.0); Mean Corpuscular Volume 92.5 fL (81-99); Mean Platelet Vol. 10.9 fl (6.2-12.0); Monocyte# 0.87 X10^3/uL; Monocyte% 10.9 % (0-10); NRBC Flagged by Analyzer 0 % (0-5); Neutrophil % 67.5 % (47-70); Platelet Count 262 K/mm3 (150-450); RBC Distribution Width CV 13.3 % (11.6-14.6); RBC Distribution Width SD 44.9 fl (35.1-43.9); Red Blood Count 3.89 M/mm3 (4.2-5.4)
[2024-06-23 17:56] LABS: AST(SGOT) 19 U/L (15-37); Alanine Aminotransfer ALT/SGPT 22 U/L (13-56); Albumin, Serum 3.8 g/dL (3.2-5.0); Alkaline Phosphatase 53 U/L (45-117); Bilirubin, Direct 0.13 mg/dL (0.00-0.30); Globulin 3.5 g/dL (2.2-4.2); Protein, Total 7.3 g/dL (6.4-8.2)
== END | disposition home or self-care (01) ==
LOC: MTLAB 14:46
PROVIDERS: PCP Family Medicine; Referring Provider Nurse Practitioner Family; Visit Provider Nurse Practitioner Family
DX: Z08 Encounter for follow-up examination after completed treatment for malignant neoplasm (principal); L43.8 Other lichen planus; R20.8 Other disturbances of skin sensation; K11.7 Disturbances of salivary secretion; B37.2 Candidiasis of skin and nail; L40.8 Other psoriasis; D22.5 Melanocytic nevi of trunk; L82.1 Other seborrheic keratosis; Z71.89 Other specified counseling; Z85.828 Personal history of other malignant neoplasm of skin; Z79.899 Other long term (current) drug therapy
CPT/HCPCS: 36415; 80076; 85025

== ENCOUNTER → 2024-06-24 | Outpatient (CLI) | payer MEDICARE, SELFPAY ==
--- NOTE | 2024-06-24 13:22 | BI_ITS ---
MAMMOGRAPHY - BILATERAL SCREENING REASON FOR EXAM: Female, 84 years old. Routine annual screening examination. PERTINENT HISTORY: Non-contributory. TECHNIQUE: Digital bilateral breast yeison (3D mammographic acquisition) in the CC and MLO projections. 2-D mediolateral oblique (MLO) and craniocaudad (CC) views of both breasts were obtained. CAD: Full Field Digital Mammography with Computer Added Detection was performed. COMPARISON: Comparison is made with prior study dated June 05, 2023 and June 01, 2022. FINDINGS: Breast Composition: The breasts are heterogeneously dense, which may obscure small masses. There are no dominant masses or suspicious calcifications. Stable benign-appearing left axillary lymph nodes. No other significant abnormalities are identified. There has been no significant change since the prior study. BI/SCRN MAMM (CAD)W/YEISON BILAT IMPRESSION: Stable bilateral screening mammogram. Yearly follow-up mammogram recommended. (A) ASSESSMENT CATEGORY: BIRADS Category 2: Benign. A letter regarding these results will be sent to the patient by the facility within 30 days. Approximately 10% of breast cancers are not detected by mammography. A normal mammogram should not delay biopsy of a clinically suspicious abnormality. [id number] Electronically Signed: Ian Bhatia MD at 14:07 EDT ,
--- NOTE | 2024-06-24 13:25 | BD_ITS ---
STUDY: DUAL ENERGY X-RAY ABSORPTIOMETRY / DXA REASON FOR EXAM: Female, 84 years old. [id number] TECHNIQUE: Bone Mineral Density (BMD) measurements of lumbar spine and bilateral hips were obtained. COMPARISON: Comparison is made with prior study dated May 25, 2020. FINDINGS: Lumbar Spine (L1-L4): g/cm2 (1.242) / T-score (2.0) / Z-score (4.7) Findings are suggestive of normal bone density with a low fracture risk. Left Femur Total: g/cm2 (0.786) / T-score (-1.3) / Z-score (0.9) Left Femoral Neck: g/cm2 (0.579) / T-score (-2.4) / Z-score (0.0) Right Femur Total: g/cm2 (0.774) / T-score (-1.4) / Z-score (0.8) Right Femoral Neck: g/cm2 (0.583) / T-score (-2.4) / Z-score (0.0) The T-Scores on the most recent prior examination were: Lumbar Spine (L1-L4): There has been worsening of bone density since the previous examination. Left Femur Total: which represents a worsening of 9.4%. Right Femur Total: which represents a worsening of 11.3%. BD/Dexa Bone Density Study IMPRESSION: The patient is considered osteopenic as outlined below according to World Zac Organization (WHO) criteria with a high fracture risk. There has been worsening of bone density since the previous examination. Reference Information: The T-score is the number of standard deviations above or below the standard which is normal for young adults at their peak bone mineral density. The World Health Organization (WHO) interprets the T-scores as follows: Above -1 Normal bone density Between -1 and -2.5 Osteopenia Equal to / or below -2.5 Osteoporosis As a practical clinical guideline, osteopenia may be graded as follows: Mild -1 through -1.5 Moderate -1.6 through -2.0 Severe -2.1 through -2.4 The Z-score is the number of standard deviations above or below age-matched controls. A Z-score of less than -1.5 would be considered abnormal. References: 1. NIH Osteoporosis and Related Bone Diseases www osteo.org 2. International Society for Clinical Densitometry www iscd.org 3. National Osteoporosis Foundation www nof.org Electronically Signed: Ian Bhatia MD at 13:50 EDT ,
== END | disposition home or self-care (01) ==
PROVIDERS: PCP Family Medicine; Referring Provider Family Medicine; Visit Provider Family Medicine
DX: Z13.820 Encounter for screening for osteoporosis (principal); Z78.0 Asymptomatic menopausal state; Z12.31 Encounter for screening mammogram for malignant neoplasm of breast
CPT/HCPCS: 77063; 77067; 77080

== ENCOUNTER 2024-07-01 10:30 | Outpatient (RCR) | payer MEDICARE, SELFPAY ==
--- NOTE | 2024-06-25 12:00 | HP.PTEVAL ---
Patient's Visit Information Visit Information Visit Information: ANGEL OLIVER is a 84 year old F referred to Physical Therapy by Dr. Dallas Tomlin DO with a diagnosis of R leg pain. Date of Evaluation: 06/25/24 Physical Therapist: Sherif Richter, PT, ATC Visit Plan Frequency: 2x /Week Duration: 4 Weeks Plan: R LE strengthening, balance and proprio, nustep, and HEP Subjective Subjective: Pt reports she has had R LE pain for approximately 3 weeks. Pt notes she went to her grandsons wedding and danced a little, and wonders if this caused her pain. Pt reports most of her pain is on the superior lateral aspect of R LE near her fibular head. Pt reports she is an avid walker, but is unable to walk far secondary to her pain. Pt reports she is very limited with stair negotiation secondary to not being able to lift her R LE secondary to pain. Pt reports she has been rubbing Voltaren on her R LE which has improved significantly. Pt denies any tingling or numbness at this time in her R LE. Pt reports pain will wake her up at night time. 3/10 pain at rest, 7/10 pain at worst. Pain R leg pain: Pain Intensity (Out of 10): 3 Pain Intensity Range: 7 Objective Objective: Neuro: B LE sensation is WNL to light touch Palpation: Pt is very tender along the lateral joint line of R knee. Mild swelling noted. Pain also on R fibular head. ROM: L knee 0-130 degrees; R knee 0-125 degrees MMT: L knee flex= 23, ext= 26 #F; R knee flex= 22, ext= 28 #F Special tests: Pos McMurrays and compression tests Balance/Special Test Scores Lower Extremity Functional Score: 38 Goals Goal 1:: Decrease R knee pain x 50% to aid with sleep Goal Time Frame: 4-6 Weeks Goal 2:: Pt will be able to reciprocally negotiate 10 stairs without difficulty Goal Time Frame: 4-6 Weeks Goal 3:: I with HEP Goal Time Frame: 4-6 Weeks Rehabilitation Potential Physical Therapy Diagnosis: Pt has R leg pain, difficulty with sleep, and difficulty with ambulation secondary to deg changes in R knee Rehabilitation Potential: Good Anticipated Interventions Patient/Client Instruction: Educate patient on: Condition and Plan of Care For the Purpose of:: To improve self management Therapeutic Exercise to Include: Strength training, Endurance training, Balance training, Flexibilty training, Gait and locomotor training and Dynamic Lumbar Stabilization For the Purpose of:: To decrease pain and To improve muscle performance and motor function Text: Thank you for the opportunity to evaluate your patient. For Medicare and Medicare HMO plans, please review the plan of care and approve it. It will need to be FAXED BACK to us at [phone] for Medicare purposes. For Medicare only, by signing this I certify the plan of care. Please let me know if there are questions or concerns regarding this plan of care. Physician Signature: Date:
--- NOTE | 2024-07-01 11:00 | HP.PTDCSUM ---
Discharge Summary D/C summary: It has been my pleasure to treat ANGEL OLIVER referred by Dr. Dallas Tomlin DO, with the diagnosis of R leg pain for a total of 2 visit(s). Discharge Date: Please see the following information for a summary of their discharge status. Subjective Subjective: Pt reports mild pain today. I almost cancelled Pain R leg pain: Pain Intensity (Out of 10): 2 Objective Objective/Function: Pt gina all Rx well. Pt is now I with HEP Goals Goal 1:: Decrease R knee pain x 50% to aid with sleep Goal 2:: Pt will be able to reciprocally negotiate 10 stairs without difficulty Goal 3:: I with HEP Plan Plan: Discharge to HEP D/C Information d/c sentence: If there are questions or concerns regarding this patient's physical therapy, please feel free to call me at [phone]. Thank you for the referral of this patient. Sincerely, Sherif Richter, PT, ATC Balance/Gait/Functional tests Balance/Special Test Scores Lower Extremity Functional Score: 38
== END 2024-07-01 19:00 | disposition home or self-care (01) ==
LOC: PT 10:30
PROVIDERS: PCP Family Medicine; Referring Provider Orthopaedic Surgery; Visit Provider Orthopaedic Surgery
DX: M76.71 Peroneal tendinitis, right leg (principal)
CPT/HCPCS: 97110; 97161

== ENCOUNTER 2024-09-19 08:30 | Outpatient (RCR) | payer MEDICARE, SELFPAY ==
--- NOTE | 2024-11-20 16:43 | HP.PT.NRP ---
Patient Information Patient Information: ANGEL OLIVER was seen in my office for initial evaluation on 08/21/24. The following Plan of Care was established for this patient: POC Established Initial Frequency: 2x /Week Initial Duration: 4 Weeks Anticipated Interventions Patient/Client Instruction: Educate patient on: Plan of Care Therapeutic Exercise to Include: Strength training, Body mechanics and Flexibilty training For the Purpose of:: To decrease pain, To increase ROM, To improve muscle performance and motor function and To improve ability of physical actions for home/community/work/leisure Last Seen Last Seen: This patient was last seen in our office . Pertinent comments regarding their Physical therapy will appear below: Discontinue At this point I will be discontinuing this patient from physical therapy. I would be happy to see this patient again in the future if found appropriate by the physician. Thank you! Sherif Richter, PT, ATC Balance/Gait/Functional tests Balance/Special Test Scores Lower Extremity Functional Score: 32
== END 2024-09-19 19:00 | disposition home or self-care (01) ==
LOC: PT 08:30
PROVIDERS: PCP Family Medicine; Referring Provider Orthopaedic Surgery; Visit Provider Orthopaedic Surgery
DX: M76.71 Peroneal tendinitis, right leg (principal)
CPT/HCPCS: 97110; 97161

== ENCOUNTER → 2024-09-23 | Outpatient (CLI) | payer MEDICARE, SELFPAY ==
--- NOTE | 2024-09-23 11:00 | PET_ITS ---
EXAMINATION: FDG-PET/CT ? INDICATIONS: 84-year-old female with a history of head and neck carcinoma, presenting for restaging examination. ? COMPARISON EXAMINATION: None available. ? TECHNIQUE: Following the intravenous administration of 15.33 mCi of F-18 deoxyglucose via the left antecubital fossa, multiplanar image acquisitions of the head, neck, chest, abdomen and pelvis to the level of the midthigh, obtained at one-hour post radiopharmaceutical administration contemporaneously interpreted with the current CT of the chest, abdomen and pelvis dated 09/23/2024 via coregistration reveal: ? SERUM GLUCOSE LEVEL:? 92 mg/dL? HEIGHT:?? 61 inches WEIGHT:?? 130 pounds ? FINDINGS: ? HEAD/NECK:? There is no evidence of abnormal increased glucose metabolism in the pharyngeal mucosal space, parapharyngeal space, oropharynx, bilateral-lateral and anterior neck, hypopharynx and distribution of the larynx. ? The visualized portion of the cerebral cortical-subcortical structures demonstrate symmetric and preserved glucose metabolism. ? CHEST:? There is no quantitative scintigraphic evidence of abnormal increased glucose metabolism within the context of the bilateral hemithorax pulmonary parenchyma, right and left hemithorax at the pleural interface, mediastinal structures, and left-right thoracic perihilum. ? CT of the chest demonstrates the following anatomic characteristics: Atherosclerotic calcification is defined in the thoracic aorta without evidence of dilatation, aneurysm formation.? Calcified and noncalcified parenchymal densities noted in the bilateral hemithorax are ametabolic.? Bilateral axillary and calcified and noncalcified mediastinal and thoracic perihilar soft tissues are nontracer avid.? ? ABDOMEN/PELVIS:? Normal physiologic distribution of the radiopharmaceutical is identified in the hepatic and splenic parenchyma, both renal units, urinary bladder, and visualized intestinal tract.? Diffuse intestinal tract is identified in all four quadrants of the abdominal-pelvic mesentery. ? CT of the abdomen and pelvis is remarkable for the following: Atherosclerotic calcification is defined in the abdominal aorta without evidence of dilatation, aneurysm formation.? Pelvic arterial calcification is observed.? Occasional colonic diverticula are encountered, without evidence of diverticulitis.? Right and left inguinal soft tissue densities are nontracer avid. ? SKELETAL:? There is no evidence of quantitatively significant enhanced glucose metabolism on meticulous inspection of the appendicular and axial skeletal structures. ? Degenerative changes defined in the thoracic and lumbar spine demonstrate no evidence of increased glucose metabolism. There are no sclerotic, mixed sclerotic-lytic, or primarily lytic changes defined in the axial skeletal structures with evidence of increased FDG uptake. ? PET/PET/CT Tumor Base -Thigh Init IMPRESSION: NEGATIVE EXAMINATION.? There is no definitive quantitative scintigraphic evidence of recurrent-metastatic viable neoplasm. Electronic Signature Isaias Escalante D.O. Accurate Quantification of SUVs for this report are calculated using the exclusive [employer]. ([place].S. Patent No. [id number] [id number] B2 [phone] [place] patent [phone]). Standardization and correction of the FDG SUV metric via [employer] technology allow for vendor non-specific objective quantitative examination comparison and optimization of the sensitivity and specificity of the FDG PET-CT examination. [email or web address] Electronically Signed: Isaias Escalante DO at 8:21 EDT ,
== END | disposition home or self-care (01) ==
PROVIDERS: PCP Family Medicine; Referring Provider Otolaryngology; Visit Provider Otolaryngology
DX: C02.1 Malignant neoplasm of border of tongue (principal)
CPT/HCPCS: 78815; A9552

== ENCOUNTER → 2024-10-03 | Outpatient (CLI) | payer MEDICARE, SELFPAY ==
--- NOTE | 2024-10-03 13:19 | CT_ITS ---
HISTORY: Malignant neoplasm of border of tongue. TECHNIQUE: Helically acquired images were obtained of the neck after the intravenous administration of 75 mL Isovue 370. A radiation dose optimization technique was used for this scan. 319 images. COMPARISON: PET-CT 09/23/2024. FINDINGS: NASOPHARYNX: Unremarkable. SUPRAHYOID NECK: Unremarkable oropharynx, oral cavity, parapharyngeal space, and retropharyngeal space with streak artifact from dental amalgam. INFRAHYOID NECK: Unremarkable larynx, hypopharynx, and supraglottis. THYROID: 1.6 cm right thyroid nodule with small rim calcification. SALIVARY GLANDS: Homogeneous parotid and submandibular glands. LYMPH NODES: No cervical or supraclavicular lymphadenopathy. VASCULAR STRUCTURES: Patent bilateral internal jugular veins and carotid arteries. Medial retropharyngeal course of the left internal carotid artery. ORBITS: Right lens resection. PARANASAL SINUSES/MASTOID AIR CELLS: Well aerated. No significant air-fluid levels. OSSEOUS STRUCTURES: Mild degenerative changes of the cervical spine. LUNG APICES: Clear. CT/Soft Tissue Neck WITH Contrast IMPRESSION: No definite tumor recurrence or metastatic disease identified with limited evaluation of the oral cavity due to streak artifact from dental amalgam. 1.6 cm heterogeneous right thyroid nodule; consider ultrasound follow-up. Electronically Signed: Cortney Antonio MD at 9:28 EST ,
[2024-10-03 13:46] LABS: CREATININE FINGERSTICK < 1.0 mg/dL (0.55-1.02); EGFR FINGERSTICK > 60.0000 mL/min (>60)
== END | disposition home or self-care (01) ==
PROVIDERS: PCP Family Medicine; Referring Provider Otolaryngology; Visit Provider Otolaryngology
DX: C02.1 Malignant neoplasm of border of tongue (principal)
CPT/HCPCS: 70491; Q9967

== ENCOUNTER → 2024-11-06 | Outpatient (CLI) | payer MEDICARE, SELFPAY ==
[2024-11-06 15:23] LABS: Absolute Lymphocyte Count 0.91 X10^3/uL (0.83-4.51); Absolute Neutrophil Count 4.1 X10^3/uL (2.0-7.7); Basophil# 0.03 X10^3/uL; Basophil% 0.5 % (0-1); Eosinophil# 0.04 X10^3/uL; Eosinophils% 0.7 % (0-5); Hematocrit 34.7 % (37-47); Hemoglobin 10.8 g/dL (12.0-15.0); Lymphocyte # 0.91 X10^3/ul (0.83-4.51); Lymphocyte % 15.9 % (19-41); Mean Corp Hgb Conc 31.1 g/dL (32-36); Mean Corpuscular Hgb 29.9 pg (27.0-32.0); Mean Corpuscular Volume 96.1 fL (81-99); Mean Platelet Vol. 10.8 fl (6.2-12.0); Monocyte# 0.61 X10^3/uL; Monocyte% 10.6 % (0-10); NRBC Flagged by Analyzer 0 % (0-5); Neutrophil # 4.13 X10^3/uL (2.7-7.7); Platelet Count 341 K/mm3 (150-450); RBC Distribution Width SD 46.3 fl (35.1-43.9); Red Blood Count 3.61 M/mm3 (4.2-5.4); White Blood Count 5.7 K/mm3 (4.4-11.0)
[2024-11-06 15:45] LABS: Vitamin D,25 Hydroxy 137.7 ng/mL
[2024-11-06 15:55] LABS: ALB/GLOB Ratio 1.1 RATIO (0.9-2.4); AST(SGOT) 21 U/L (15-37); Alanine Aminotransfer ALT/SGPT 24 U/L (13-56); Albumin, Serum 3.9 g/dL (3.2-5.0); Alkaline Phosphatase 62 U/L (45-117); Anion Gap 11 (5-15); BUN 19 mg/dL (7-18); Chloride 102 mmol/L (98-107); EST Glomerular Filtration Rate 56 mL/min (>60); Est Glom Filt Rate - Afr Amer 68 mL/min (>60); Globulin 3.5 g/dL (2.2-4.2); Glucose 79 mg/dL (74-106); Potassium 3.3 mmol/L (3.5-5.1); Protein, Total 7.4 g/dL (6.4-8.2); Sodium Level 137 mmol/L (136-145); Thyroid Stim Hormone (TSH) 0.802 uIU/mL (0.358-3.740)
== END | disposition home or self-care (01) ==
LOC: MFPLAB 10:50
PROVIDERS: PCP Family Medicine
DX: R22.43 Localized swelling, mass and lump, lower limb, bilateral (principal)
CPT/HCPCS: 36415; 80053; 82306; 84443; 85025

== ENCOUNTER → 2024-11-18 | Outpatient (CLI) | payer MEDICARE, SELFPAY ==
--- NOTE | 2024-11-18 14:07 | CT_ITS ---
INDICATION: dizziness leaning toward the left EXAMINATION: CT BRAIN - CT Head or Brain W/O Contrast Injection TECHNIQUE: Multiple axial images were obtained of the head without intravenous contrast. A radiation dose optimization technique was used for this scan. IV Contrast dosage and agent: None. COMPARISON: None. FINDINGS: BRAIN PARENCHYMA: No intra- or extra-axial hemorrhage. No evidence of acute infarct. No intracranial mass or mass effect. There is preservation of the barbosa/white matter interface. Posterior fossa structures are unremarkable. Volume loss with low attenuation of the periventricular white matter typical of chronic small vessel disease. CSF SPACES: Appropriate for age. No hydrocephalus. Basal cisterns are patent. CALVARIUM, SKULL BASE, PARANASAL SINUSES AND MASTOID AIR CELLS: Clear. No discrete lytic or blastic abnormalities. CT/Brain/Head without Contrast IMPRESSION: Volume loss with chronic white matter changes. No acute intracranial findings. Electronically Signed: Yves Paul MD at 15:20 EST ,
== END | disposition home or self-care (01) ==
LOC: CT 14:06
PROVIDERS: PCP Family Medicine
DX: R42 Dizziness and giddiness (principal)
CPT/HCPCS: 70450

== ENCOUNTER → 2025-03-24 | Outpatient (CLI) | payer MEDICARE, SELFPAY ==
[2025-03-24 18:02] LABS: Absolute Lymphocyte Count 0.58 X10^3/uL (0.83-4.51); Absolute Neutrophil Count 6.8 X10^3/uL (2.0-7.7); Basophil# 0.01 X10^3/uL; Basophil% 0.1 % (0-1); Eosinophil# 0.01 X10^3/uL; Eosinophils% 0.1 % (0-5); Hematocrit 32.5 % (37-47); Hemoglobin 10.9 g/dL (12.0-15.0); Lymphocyte # 0.58 X10^3/ul (0.83-4.51); Lymphocyte % 7.3 % (19-41); Mean Corp Hgb Conc 33.5 g/dL (32-36); Mean Corpuscular Hgb 31.1 pg (27.0-32.0); Mean Corpuscular Volume 92.6 fL (81-99); Mean Platelet Vol. 9.8 fl (6.2-12.0); Monocyte# 0.52 X10^3/uL; Monocyte% 6.5 % (0-10); NRBC Flagged by Analyzer 0 % (0-5); Neutrophil # 6.79 X10^3/uL (2.7-7.7); Neutrophil % 85.1 % (47-70); POSITIVE DIFFERENTIAL YES; Platelet Count 317 K/mm3 (150-450); RBC Distribution Width CV 13.7 % (11.6-14.6); RBC Distribution Width SD 46.6 fl (35.1-43.9); Red Blood Count 3.51 M/mm3 (4.2-5.4)
[2025-03-24 18:21] LABS: Erythrocyte Sedimentation Rate 5 mm/hr (0-30)
[2025-03-24 18:38] LABS: ALB/GLOB Ratio 1.5 RATIO (0.9-2.4); AST(SGOT) 23 U/L (<=31); Alanine Aminotransfer ALT/SGPT 19 U/L (<=34); Albumin, Serum 4.2 g/dL (3.4-4.8); Alkaline Phosphatase 61 U/L (35-104); Amylase 61 U/L (28-100); Anion Gap 12 (5-15); BUN 18 mg/dL (4-19); BUN/Creat Ratio 21.1 RATIO (10-20); Calcium,Total 9.7 mg/dL (7.6-11.0); Carbon Dioxide 24.3 mmol/L (21.0-32.0); Chloride 100 mmol/L (98-108); Creatinine, Serum 0.87 mg/dL (0.70-1.20); EST Glomerular Filtration Rate 67 (>60); Ferritin 94 ng/mL (22-378); Globulin 2.8 g/dL (2.2-4.2); Glucose 105 mg/dL (70-99); Iron 78 ug/dL (50-170); Iron Binding Capacity,Total 299 ug/dL (250-450); Iron Binding Capacity,Unsat 221 ug/dL (228-428); Potassium 3.8 mmol/L (3.3-5.1); Sodium Level 137 mmol/L (133-145); Thyroid Stim Hormone (TSH) 0.281 uIU/mL (0.300-4.200); Total Bilirubin 0.43 mg/dL (0.00-1.30); Vitamin B12 306 pg/mL (180-914)
[2025-03-26 17:08] LABS: Deamidated Gliadin IgA 5 units (0-19); Deamidated Gliadin IgG 1 units (0-19); Endomysial Antibody IgA Negative (Negative); Immunoglobulin A 254 mg/dL (64-422); t-Transglutaminase IgA <2 U/mL (0-3)
== END | disposition home or self-care (01) ==
LOC: MTLAB 15:17
PROVIDERS: PCP Family Medicine
DX: R19.4 Change in bowel habit (principal); D64.9 Anemia, unspecified; K21.9 Gastro-esophageal reflux disease without esophagitis; R13.10 Dysphagia, unspecified; R14.0 Abdominal distension (gaseous); Z79.02 Long term (current) use of antithrombotics/antiplatelets
CPT/HCPCS: 36415; 80053; 82150; 82607; 82728; 82746; 82784; 83516; 83540; 83550; 84443; 85025; 85652; 86255

== ENCOUNTER → 2025-05-26 | Outpatient (CLI) | payer MEDICARE, SELFPAY ==
[2025-05-26 11:13] LABS: Hematocrit 33.3 % (37-47); Hemoglobin 10.9 g/dL (12.0-15.0); Immature Granulocytes Count 0.110 X10^3/uL (0.0-0.0); Mean Corp Hgb Conc 32.7 g/dL (32-36); Mean Corpuscular Volume 94.1 fL (81-99); Mean Platelet Vol. 10.2 fl (6.2-12.0); NRBC Flagged by Analyzer 0 % (0-5); Platelet Count 268 K/mm3 (150-450); RBC Distribution Width CV 13.2 % (11.6-14.6); RBC Distribution Width SD 45.3 fl (35.1-43.9); Red Blood Count 3.54 M/mm3 (4.2-5.4); White Blood Count 7.5 K/mm3 (4.4-11.0)
[2025-05-26 11:14] LABS: Ferritin 82 ng/mL (22-378); Iron 91 ug/dL (50-170); Iron Binding Capacity,Total 309 ug/dL (250-450); Iron Binding Capacity,Unsat 218 ug/dL (228-428)
== END | disposition home or self-care (01) ==
PROVIDERS: PCP Family Medicine; Referring Provider Internal Medicine Gastroenterology; Visit Provider Internal Medicine Gastroenterology
DX: D64.9 Anemia, unspecified (principal)
CPT/HCPCS: 36415; 82728; 83540; 83550; 85025

== ENCOUNTER → 2025-06-23 | Outpatient (CLI) | payer MEDICARE, SELFPAY ==
[2025-06-23 19:14] LABS: Hematocrit 33.9 % (37-47); Hemoglobin 11.8 g/dL (12.0-15.0); Immature Granulocytes Count 0.410 X10^3/uL (0.0-0.0); Mean Corp Hgb Conc 34.8 g/dL (32-36); Mean Corpuscular Volume 89.4 fL (81-99); Mean Platelet Vol. 9.3 fl (6.2-12.0); NRBC Flagged by Analyzer 0 % (0-5); Platelet Count 276 K/mm3 (150-450); RBC Distribution Width CV 13.7 % (11.6-14.6); RBC Distribution Width SD 45.0 fl (35.1-43.9); Red Blood Count 3.79 M/mm3 (4.2-5.4); White Blood Count 11.5 K/mm3 (4.4-11.0)
[2025-06-23 20:05] LABS: FOLATES,SERUM (FOLIC ACID) 10.40 ng/mL (4.60-34.80)
[2025-06-23 21:18] LABS: Vitamin B12 278 pg/mL (180-914)
[2025-06-23 22:46] LABS: Differential Indicated SCAN CRITERIA MET
[2025-06-24 00:41] LABS: Acanthocytes RARE; Anisocytosis 1+; Burr Cells 1+; Differential Comment SCANNED; Polychromasia 1+
== END | disposition home or self-care (01) ==
LOC: MFPLAB 16:57
PROVIDERS: PCP Family Medicine; Referring Provider Family Medicine; Visit Provider Family Medicine
DX: R79.89 Other specified abnormal findings of blood chemistry (principal); D64.9 Anemia, unspecified
CPT/HCPCS: 36415; 82607; 82668; 82746; 84443; 85025

== ENCOUNTER 2025-06-25 09:00 | Outpatient (RCR) | payer MEDICARE, SELFPAY ==
--- NOTE | 2025-06-09 08:48 | HP.PTEVAL_ITS ---
Patient's Visit Information Visit Information Visit Information: ANGEL OLIVER is a 85 year old F referred to Physical Therapy by Dr. Ang Finnegan MD with a diagnosis of R and L greater trochanteric bursitis. Date of Evaluation: 06/05/25 Physical Therapist: Román Martell DPT Visit Plan Frequency: 2x /Week Duration: 6 Weeks Plan: 1) US to bilateral trochanters if needed 2) IT band and ER stretching 3) glute med/max and core strengthening 4) educate in gym exercises. May give her a HEP for aquatic exercises. Subjective Subjective: Pt. is here today for her initial evaluation with diagnosis of R and L trochanteric bursitis. Pt. reports increased pain with walking and standing. Pt. reports feeling weak in BLEs as well. Pt. reports no N/T, but does have pain down both lateral LEs to knees at times. Pt. has not done much recently due to illness, but would like to get back to gym. Pt. did have questions about pool exercises as well. She would like to do land PT at this point in time. Pain R greater trochanter: Pain Intensity (Out of 10): 2 Pain Intensity Range: 0 and 5 Objective Objective: POSTURE: Pt. has slight flexed posture, normal DONELL in stance. PALPATION: Pt. has tenderness at bilateral greater trochanters. NEURO: pt. has normal sensation and normal DTR of BLEs. ROM: Pt. has tight IT bands bilaterally. Pt. has tight hip ER bilaterally. MMT: Pt. has marked weakness in hip abductors and glutes. 4/5 bilaterally. HIp flexor 4+/5. bilat. Core poor. GAIT: Pt ambulates without AD, but has decreased step length and slight increase in lateral sway. Pt. is able to complete without LOB. STAIRS: Pt. has increased pain with ascending, reciprocal pattern noted. Descending less painful. Balance/Special Test Scores Lower Extremity Functional Score: 43 Goals Goal 1:: LTG: Pt. to be I with HEP. Goal Time Frame: 4-6 Weeks Goal 2:: LTG: Pt. to have full strength in B hips and LEs Goal Time Frame: 4-6 Weeks Goal 3:: LTG: Pt. to ambulate without AD with normal gait pattern and no pain. Goal Time Frame: 4-6 Weeks Goal 4:: LTG: Pt. to be I with both pool and gym exercises. Goal Time Frame: 4-6 Weeks Goal 5:: LTG: Pt. to reports no pain in B hips. Goal Time Frame: 4-6 Weeks Rehabilitation Potential Physical Therapy Diagnosis: Pt. has signs and symptoms consistent with R and L greater trochanteric bursitis. Pt. has marked glute weakness and increased greater trochanteric pain. Pt. would benefit from PT to address the above limitations. Rehabilitation Potential: Good Anticipated Interventions Patient/Client Instruction: Educate patient on: Condition, Plan of Care, Risk Factors and Benefits of Fitness Program For the Purpose of:: To facilitate caregiver knowledge, To improve self manageme nt, To prevent re-injury, To improve ability to perform tasks related to life management and To improve tolerance to ADL's Therapeutic Exercise to Include: Strength training, Power training, Endurance training, Postural training, Flexibilty training, Passive ROM, Active ROM and Dynamic Lumbar Stabilization For the Purpose of:: To decrease pain, To decrease swelling/inflammation, To increase ROM, To improve nutrient delivery to tissue, To increase oxygenation perfusion, To improve muscle performance and motor function, To improve ability to perform ADL's, To increase tolerance to activity/condition/position and To improve performance and independence with ADL's Manual Therapy Techniques to Include: Passive ROM and Soft tissue mobilization For the Purpose of:: To decrease pain, To decrease swelling/inflammation and To increase ROM Cryotherapy (ice pack, ice massage): Yes Ultrasound (thermal/non thermal): Yes For the Purpose of:: To decrease pain, To decrease swelling/inflammation and To increase ROM Text: Thank you for the opportunity to evaluate your patient. For Medicare and Medicare HMO plans, please review the plan of care and approve it. It will need to be FAXED BACK to us at [phone] for Medicare purposes. For Medicare only, by signing this I certify the plan of care. Please let me know if there are questions or concerns regarding this plan of care. Physician Signature: Date:
== END 2025-06-25 19:00 | disposition home or self-care (01) ==
LOC: PT 09:00
PROVIDERS: PCP Family Medicine; Referring Provider Orthopaedic Surgery; Visit Provider Orthopaedic Surgery
DX: M70.61 Trochanteric bursitis, right hip (principal)
CPT/HCPCS: 97035; 97110; 97161

== ENCOUNTER 2025-07-09 04:42 | Observation (INO) | payer MEDICARE, SELFPAY ==
[2025-07-09] VITALS (7 sets, daily range): BP systolic 121–150; BP diastolic 67–88; PULSE 68–100; RESP 14–22; TEMP 36.6–37.1; O2SAT 93–99; BMI 26.7; BMI 27.3
--- NOTE | 2025-07-09 04:51 | EX.ED.DYSGE1 ---
HPI History of Present Illness Chief Complaint: Weakness Informant: patient Onset/Context/Timing Onset: Weeks (1-2) Context: Gradual Onset Timing: Continuous Quality: Weakness Location: Generalized Worsened by: Nothing Relieved by: Nothing Narrative Narrative: Patient presents with generalized weakness that has been getting worse over the past week and a half. Patient states she just feels weak all over. Patient states she feels limp. Patient states nothing makes it better and nothing makes it worse. Patient states she feels like she is low on iron. Patient denies any melena or hematochezia however. Patient has a history of chronic back pain. Family states that the patient has been taking Aleve and ibuprofen for her back pain. Patient denies any abdominal pain. Patient denies any dysuria or hematuria. Patient denies any fevers or chills. [facility] Medical History Pure hypercholesterolemia Diverticulitis Essential hypertension Hiatal hernia History of aortic valve disorder GERRY (obstructive sleep apnea) Trigger finger of thumb GERD (gastroesophageal reflux disease) Nonrheumatic tricuspid (valve) insufficiency Nonrheumatic mitral valve regurgitation Diastolic dysfunction Pulmonary hypertension Back pain Neck pain Limb weakness Difficulty balancing Knee pain Anemia Acute hemorrhoid Basal cell carcinoma Home Medications ?Medication ?Instructions ?Recorded ?Last Taken ?Type clobetasol 0.05 % topical gel 1 applic topical DAILY 02/18/21 Unknown History dicyclomine 10 mg capsule 10 mg PO BID PRN abdominal pain 01/22/25 Unknown History hydroxychloroquine 200 mg tablet 200 mg PO QDAY 01/22/25 Unknown History cholecalciferol (vitamin D3) 250 250 mcg PO DAILY 07/09/25 Unknown History mcg (10,000 unit) capsule clotrimazole 10 mg maicol 10 mg PO DAILY PRN skin irritation 07/09/25 Unknown History dexlansoprazole 60 mg 60 mg PO DAILY 07/09/25 Unknown History capsule,biphase delayed release furosemide 20 mg tablet 20 mg PO DAILY 07/09/25 Unknown History Allergy/AdvReac Type Severity Reaction Status Date / Time amitriptyline Allergy Severe hypotension Verified 07/09/25 04:46 meloxicam Allergy Severe hypotension Verified 07/09/25 04:46 lidocaine AdvReac Mild shaking Verified 07/09/25 04:46 cortisone AdvReac Nausea, Verified 07/09/25 04:46 hot flashes, and passing out hydrochlorothiazide AdvReac Other Verified 07/09/25 04:46 morphine AdvReac Other Verified 07/09/25 04:46 nitrofurantoin (From AdvReac Other Verified 07/09/25 04:46 Macrobid) Family History Mother Hypertension Father Hypertension Grandmother CVA (cerebral vascular accident) Grandfather Myocardial infarction Grandfather Myocardial infarction Other Cervical cancer Lung cancer Surgical History History of partial knee replacement Status post trigger finger release History of spinal fusion Hx of carpal tunnel repair History of back surgery Hx of hysterectomy Hx of cholecystectomy Hx of tonsillectomy s/p right knee UKA h/o left carpal tunnel release Hx of cholecystectomy spinal fusion History of tonsillectomy H/O: hysterectomy Social History Smoking Status: Never smoker alcohol intake: never substance use type: does not use ROS ROS ED Constitutional Constitutional ED: Denies chills or fever(s) Eyes Eyes: Denies blurry vision or change in vision ENT ENT ED: Reports rhinorrhea; Denies sore throat Cardiovascular Cardiovascular: Denies chest pain or palpitations Respiratory/Chest Respiratory/Chest: Denies cough or dyspnea Gastrointestinal Gastrointestinal: Denies melena, nausea or vomiting Genitourinary Genitourinary ED: Denies dysuria or hematuria Musculoskeletal Musculoskeletal: Reports back pain; Denies neck pain Integumentary Denies abscess or rash Neurologic Neurologic: Denies headache(s) or weakness Allergic/Immunologic Allergic/Immunologic ED: Denies mouth swelling or urticaria EXAM Physical Exam Const Vital Signs: 07/09/25 04:43 07/09/25 05:23 07/09/25 05:28 Temperature 98.7 F Temperature Source Oral Pulse Rate 75 Pulse Rate [Lying] 81 Pulse Rate [Sitting (for 1 minute prior to obtaining)] 85 Pulse Rate [Standing (for 1 minute prior to obtaining)] 100 Respiratory Rate 18 Respiratory Effort Normal Non-Labored Respiratory Pattern Normal Blood Pressure 136/74 H Blood Pressure [Lying] 150/72 H Blood Pressure [Sitting (for 1 minute prior to obtaining)] 148/80 H Blood Pressure [Standing (for 1 minute prior to obtaining)] 150/88 H Blood Pressure Mean 94 Blood Pressure Mean [Lying] 98 Blood Pressure Mean [Sitting (for 1 minute prior to obtaining)] 102 Blood Pressure Mean [Standing (for 1 minute prior to obtaining)] 108 Pulse Ox 98 Oxygen Delivery Method Room Air 07/09/25 06:43 07/09/25 07:23 Temperature 98.7 F Temperature Source Pulse Rate 73 71 Pulse Rate [Lying] Pulse Rate [Sitting (for 1 minute prior to obtaining)] Pulse Rate [Standing (for 1 minute prior to obtaining)] Respiratory Rate 15 22 H Respiratory Effort Respiratory Pattern Blood Pressure 138/77 H 140/81 H Blood Pressure [Lying] Blood Pressure [Sitting (for 1 minute prior to obtaining)] Blood Pressure [Standing (for 1 minute prior to obtaining)] Blood Pressure Mean 97 100 Blood Pressure Mean [Lying] Blood Pressure Mean [Sitting (for 1 minute prior to obtaining)] Blood Pressure Mean [Standing (for 1 minute prior to obtaining)] Pulse Ox 97 99 Oxygen Delivery Method Room Air Positive well nourished and well developed Constitutional Narrative: BMI is 26.8. General Appearance ED: well developed and NAD HEENT Reports moist mucous membranes Neck supple and no JVD Resp normal respiratory effort and clear to auscultation bilaterally Cardio regular rate and regular rhythm GI GI Narrative: Rectal exam showed good sphincter tone. There were no masses palpated. There is brown stool. It was Hemoccult positive. Palpation: soft and tender epigastric, LLQ, RLQ, LUQ, RUQ, periumbilical and suprapubic; Negative for guarding or rebound tenderness present Extremity normal to inspection Neuro oriented x3, CN's II-XII intact bilaterally and no sensory deficits noted Sensorium / Orientation: alert Motor Exam: strength 5/5 throughout Psych mental status grossly normal MDM MDM MDM Narrative Medical decision making narrative: Differential diagnosis includes anemia, electrolyte abnormality, dehydration, cardiac dysrhythmia, cardiac ischemia, urinary tract infection, bowel obstruction, and perforation. EKG will be obtained to assess for cardiac dysrhythmia and cardiac ischemia. CT scan of the abdomen and pelvis will be obtained to assess for bowel obstruction or perforation. CBC will be obtained to assess for leukocytosis and anemia. Comprehensive metabolic profile will be obtained to assess for hepatic function, renal function, and electrolyte abnormality. PT with INR and PTT will be obtained to assess for coagulopathy. Urinalysis will be obtained to assess for urinary tract infection and hematuria. History & Record Review Additional record(s) reviewed:: Prior outpatient record and Prior labs Lab Data Attestation: I reviewed the patient's lab results. Lab results narrative: CBC was reviewed. Hemoglobin was slightly low at 9.3 and hematocrit was 26.0. This is decreased from previous result. Comprehensive metabolic profile was reviewed and is essentially within normal limits. PT with INR and PTT were reviewed and were within normal limits. High-sensitivity troponin was reviewed and was slightly elevated at 33. Lipase was reviewed and was slightly elevated at 96. Urinalysis was reviewed. Leukocyte esterase was 500 with 5-10 white blood cells, 1+ bacteria. Labs: Laboratory Results - last 24 hr 07/09/25 07/09/25 05:14 06:06 WBC 7.1 RBC 2.97 L Hgb 9.3 L Hct 26.0 L MCV 87.5 MCH 31.3 MCHC 35.8 RDW Std Deviation 43.9 RDW Coeff of Janessa 13.8 Plt Count 245 MPV 8.6 Immature Gran % (Auto) 2.500 H Neut % (Auto) 83.9 H Lymph % (Auto) 5.7 L [place] % (Auto) 7.2 Eos % (Auto) 0.4 Baso % (Auto) 0.3 Absolute Neuts (auto) 5.9 Absolute Lymphs (auto) 0.40 L Nucleated RBC % 0 PT 13.1 INR 1.0 APTT 33.5 Sodium 126 L Potassium 3.3 Chloride 88 L Carbon Dioxide 26.3 Anion Gap 12 BUN 19 Creatinine 0.91 Estim Creat Clear Calc 41.87 L Est GFR (MDRD) Non-Af 63 BUN/Creatinine Ratio 21.0 H Glucose 91 Calcium 9.0 Total Bilirubin 0.28 AST 24 ALT 19 Alkaline Phosphatase 57 Troponin T High Sens 33 H Total Protein 6.1 Albumin 3.5 Globulin 2.5 Albumin/Globulin Ratio 1.4 Lipase 96 H Urine Color Straw Urine Clarity Clear Urine pH 6.5 Ur Specific [place] 1.010 Urine Protein 15 H Urine Glucose (UA) Normal Urine Ketones Negative Urine Occult Blood 10 H Urine Nitrite Negative Urine Bilirubin Negative Urine Urobilinogen Normal Ur Leukocyte Esterase 500 H Urine RBC 0 SEEN Urine WBC 5-10 SEEN Ur Squamous Epith Cells 0-5 SEEN Urine Bacteria 1+ Urine Mucus 0 SEEN Radiography Diagnostic Testing: Clinical Impression(s) from Imaging Studies Abdomen/Pelvis CT 07/09/25 05:06 IMPRESSION: There is possible jejunal enteritis such as secondary to infection. Advise correlation. Reading Location: [place] [address] CT scan of the abdomen pelvis was obtained. There is possible jejunal enteritis. There is no evidence of bowel obstruction or perforation. There is no free air or free fluid. This was interpreted by the radiologist and was also independently reviewed by myself. EKG Initial EKG: Attestation: I personally reviewed and interpreted this EKG as follows: Interpretation: Sinus Rhythm (82) and No Acute Injury Pattern Comments: EKG was obtained. On my independent interpretation, it showed a normal sinus rhythm with a rate of 82 with occasional PACs. VT interval, QRS interval, and QTc intervals were all normal. [place] was normal. There are no acute ST or T wave changes. Prior EKG tracings: available for review Prior: Unchanged (03/05/2018) Management Discussion w/another healthcare provider: Hospitalist Treatment and Re-Evaluation :: Patient was given IV fluids. Patient given a dose of Victor here. Case was discussed with the hospitalist. He will admit the patient to his service. Patient and family understood and were agreeable with the plan. All questions were answered. Discharge Plan Triage Chief Complaint: Weakness ED Provider: Pino Hathaway Dx/Rx/DC Orders Clinical Impression: General weakness, Anemia, Gastrointestinal bleed, Hyponatremia, Urinary tract infection Prescriptions: No Action dicyclomine 10 mg capsule 10 mg PO BID PRN (Reason: abdominal pain) clobetasol 0.05 % gel 1 applic TOPICAL DAILY hydroxychloroquine 200 mg tablet 200 mg PO QDAY cholecalciferol (vitamin D3) 250 mcg (10,000 unit) capsule 250 mcg PO DAILY furosemide 20 mg tablet 20 mg PO DAILY dexlansoprazole 60 mg capsule,biphase delayed releas 60 mg PO DAILY clotrimazole 10 mg maicol 10 mg PO DAILY PRN (Reason: skin irritation) Primary Care Provider: Юлия Conti Referrals: Юлия Conti MD [Primary Care Provider] - Print Language: Azerbaijani
--- NOTE | 2025-07-09 05:06 | CT_ITS ---
PROCEDURE: ABDOMEN/PELVIS W IV CONT ONLY 07/09/2025 REASON FOR EXAM: ABDOMINAL PAIN TECHNIQUE: ABDOMEN/PELVIS W IV CONT ONLY Coronal and Sagittal reconstruction series were provided. One or more dose reduction techniques were used (e.g., Automated exposure control, adjustment of the mA and/or kV according to patient size, use of iterative reconstruction technique. RADIATION DOSE SUMMARY: CTDlvol: 25 mGy DLP: 588 mGycm COMPARISON: PET scan 09/25/2024 FINDINGS: Under aerated lung bases. Heart size within normal limits. Status post cholecystectomy. Multiple liver cysts. Unremarkable pancreas, spleen, adrenal glands, kidneys. Small simple left renal cyst. No hydronephrosis or ureteral stone. Patulous bladder but no acute findings. Status post hysterectomy. No retroperitoneal or pelvic adenopathy. No free air. Nondistended bowel. Normal appendix. Diverticulosis. There is a potentially abnormal small bowel loop in the left hemipelvis, series 2, image 72, with circumferential wall thickening, possible enteritis. Lumbar spine scoliosis, degeneration, prior surgery. Pelvic floor laxity. CT/Abdomen/Pelvis W IV Cont ONLY IMPRESSION: There is possible jejunal enteritis such as secondary to infection. Advise cor relation. Reading Location: [place] [id number]
[2025-07-09] MEDS: HYDROcodone Bitartrate/Apap 5/325 Tablet PO ×2 (05:15→19:00)
--- OUTSIDE RECORDS SUMMARY | 2025-07-09 05:19 | XMS RPT_ITS | CCD ---
Author Organization [facility] Care Team Providers Care Inventory Control Assistant Name Role Phone RogelioAlexandra Julio Unavailable Unavailable Carlo Burch MD Unavailable Muoh, Osvaldo Noreen Unavailable Unavailable Sherif Marshall Unavailable Unavailable MEADE, JODI Unavailable Unavailable Sherif Marshall Unavailable Unavailable Buczek, Valente Tato Unavailable Unavailable Buczek, Valente Tato Unavailable Unavailable Muoh, Osvaldo Noreen Unavailable Unavailable Sherif Marshall Unavailable Unavailable Raquel Mauro Unavailable Gravius, Clarita Unavailable Unavailable Messenger, Arlene Unavailable Unavailable Unavailable Unavailable Gravius, Clarita Unavailable Unavailable Messenger, Arlene Unavailable Unavailable Slarb, Shamika Unavailable Unavailable Vanesa DO, Raquel Unavailable Messenger RNArlene Unavailable Unavailable Gravius GLOBE MOUNTER, Clarita Unavailable Unavailable Slarb FABRICATION MIG WELDER, Shamika Unavailable Unavailable Unavailable Unavailable Pascale Warner LPN Unavailable Unavailable Julio Wang LPN Unavailable Unavailable Ciesa BILLING AUDITOR, Savannah Unavailable Denita Mauro DOhleen Unavailable Ciesa, Omaira Unavailable Ciesa, Omaira Unavailable Coco Maria LPN Unavailable Unavailable Dr. Raquel Mauro Primary Care Provider [phone] Dr. Raquel Mauro Referring Provider Dr. Jose Juan Wharton Attending Provider [phone] Dr. Kentrell Palacios Attending Provider Sahara Hardy MA Unavailable Unavailable Juan Pablo BILLING AUDITOR, Giselle Unavailable [phone] Raquel Mauor Primary Care Provider [phone] Dr. Raquel Mauro Referring Provider Dr. Jose Juan Wharton Attending Provider Dr. Kentrell Palacios Attending Provider [phone] Raquel Mauro DO Unavailable [phone] Hayley SHIRLEY Sahara Unavailable Unavailable [place] GLOBE MOUNTER, Kayela Unavailable Unavailable Felipe FABRICATION MIG WELDER, Julio Unavailable Unavailable Gravius GLOBE MOUNTER, Clarita Unavailable Unavailable Edwina RN, Arlene Unavailable Unavailable Slaosito FABRICATION MIG WELDER, Shamika Unavailable Unavailable Lizzdannielle, Omaira Unavailable Juan Pablo BILLING AUDITOR, Giselle Unavailable [phone] Unavailable Unavailable Raquel Mauro DO Attending Unavailable Raquel Mauro DO Consulting Unavailable Dr. Raquel Mauro Primary Care Provider [phone] Dr. Kentrell Palacios Attending Provider [phone] Raquel Mauro Referring Provider MURALI Durant Attending Provider Dr. Raquel Mauro Primary Care Provider [phone] Dr. Raquel Mauro Referring Provider MURALI Durant Attending Provider He FABRICATION MIG WELDER, Александр Unavailable Unavailable Manchak EV, Venita Unavailable Unavailable DO Pelon Blackwood Primary Care Provider [phone] DO Pelon Blackwood Referring Provider [phone] MURALI Durant Attending Provider Dr. Kentrell Palacios Attending Provider [phone] Unavailable Primary Care Provider Unavailabl chong Lackey CCC-WEDGER, Madelyn Unavailable Unavailable Russell STRONG, Phillip Unavailable Kingsley CCC-WEDGER, Farida Mejia Unavailable Unava ilable Jana CCC-WEDGER, Arely Unavailable Unavailab Pelon Arzate DO Referring Provider Casandra Durant Attending Provider [phone] Sushila STRONG, Юлия Primary Care Provider FLORENCE HARMAN Attending Provider [phone] FLORENCE HARMAN Referring Provider RUSSELL, PHILLIP Referring Unavailable PROVIDER, UNKNOWN Admitting Unavailable PROVIDER, UNKNOWN Attending Unavailable RUSSELL, PHILLIP Attending Unavailable PROVIDER, UNKNOWN Admitting Unavailable EVELIO, JUAN C Referring Unavailable RUSSELL, PHILLIP Attending Unavailable PROVIDER, UNKNOWN Admitting Unavailable RUSSELL, PHILLIP Referring Unavailable PROVIDER, UNKNOWN Admitting Unavailable PROVIDER, UNKNOWN Attending Unavailable RUSSELL, PHILLIP Referring Unavailable PROVIDER, UNKNOWN Admitting Unavailable PROVIDER, UNKNOWN Attending Unavailable RUSSELL, PHILLIP Referring Unavailable PROVIDER, UNKNOWN Attending Unavailable PROVIDER, UNKNOWN Admitting Unavailable RUSSELL, PHILLIP Referring Unavailable PROVIDER, UNKNOWN Admitting Unavailable PROVIDER, UNKNOWN Attending Unavailable RUSSELL, PHILLIP Attending Unavailable RUSSELL, PHILLIP Admitting Unavailable RUSSELL, PHILLIP Referring Unavailable RUSSELL, PHILLIP Attending Unavailable PROVIDER, UNKNOWN Admitting Unavailable RUSSELL, PHILLIP Attending Unavailable PROVIDER, UNKNOWN Admitting Unavailable RUSSELL, PHILLIP Referring Unavailable PROVIDER, UNKNOWN Admitting Unavailable PROVIDER, UNKNOWN Attending Unavailable RUSSELL, PHILLIP Referring Unavailable PROVIDER, UNKNOWN Admitting Unavailable PROVIDER, UNKNOWN Attending Unavailable RUSSELL, PHILLIP Referring Unavailable PROVIDER, UNKNOWN Admitting Unavailable FARIDA DE LUNA Attending Unavailable RUSSELL, PHILLIP Referring Unavailable RUSSELL, PHILLIP Attending Unavailable PROVIDER, UNKNOWN Admitting Unavailable RUSSELL, PHILLIP Referring Unavailable PROVIDER, UNKNOWN Attending Unavailable PROVIDER, UNKNOWN Admitting Unavailable Sushila STRONG, Юляи Primary Care Provider Dr. Dakota Doshi MD Attending Provider Dr. aDkota Doshi MD Referring Provider Sushila, Chalon Primary Care Unavailable Evelio, Juan C Referring Unavailable Evelio, Juan C Attending Unavailable Sushila, Chalon Primary Care Unavailable Dallas Tomlin Attending Unavailable Dallas Tomlin Referring Unavailable Sushila, Chalon Primary Care Unavailable IGNACIO BENNETT Referring Unavailable IGNACIO BENNETT Attending Unavailable Sushila, Chalon Primary Care Unavailable Naveen Gonzalez Attending Unavailable Sushila, Chalon Primary Care Unavailable Dakota Doshi Referring Unavailable Dakota Doshi Attending Unavailable Юлия Conti Referring Unavailable Sushila, Юлия Attending Unavailable Sushila, Chalon Primary Care Unavailable Ang Finnegan Attending Unavailab le Sushila, Chalon Primary Care Unavailable Ang Finnegan Referring Unavailab le Sushila, Chalon Primary Care Unavailable Pelon Blackwood Referring Unavailable Casandra uDrant Attending Unavail able Sushila, Chalon Primary Care Unavailable Tarikorrow, Naveen Referring Unavailable Tarikorrow, Naveen Attending Unavailable Sushila, Chalon Primary Care Unavailable Dallas Tomlin Attending Unavailable Dallas Tomlin Referring Unavailable Sushila, Chalon Primary Care Unavailable Juan C Fraser Referring Unavailable Evelio, Juan C Attending Unavailable Allergies Allergy Classification Reported Allergen(s) Allergy Type Date of Onset Reaction(s) Facility Amitriptyline (4 sources) Amitriptyline; Translations: [Amitriptyline HCl *ANTIDEPRESSANTS*] Drug [facility] Work Phone: Corticosteroids (4 sources) Hydrocortisone; Translations: [Cortizone-10 *DERMATOLOGICALS*] Drug Allergy [facility] Work Phone: Comment on above: pass out HMG-CoA Reductase Inhibitors (statins) (8 sources) rosuvastatin; Translations: [Crestor *ANTIHYPERLIPIDEMI CS*] Drug Allergy [facility] Work Phone: Comment on above: GI upset body aches hydroCHLOROthiazide (4 sources) hydroCHLOROthiazid e; Translations: [HydroCHLOROthiazi de *DIURETICS*] Drug Allergy [facility] Work Phone: Comment on above: pass out NITROFURANTOIN, MACROCRYSTALS / Nitrofurantoin, Monohydrate (4 sources) NITROFURANTOIN, MACROCRYSTALS / Nitrofurantoin, Monohydrate; Translations: [Macrobid *URINARY ANTI-INFECTIVES*] Drug Allergy [facility]; [facility] Work Phone: Comment on above: passed out NSAIDs (4 sources) meloxicam; Translations: [Meloxicam *ANALGESICS - ANTI-INFLAMMATORY* ] Drug Allergy [facility] Work Phone: Comment on above: hypotension, nausea Opioid Agonists (4 sources) Morphine; Translations: [Morphine Sulfate (Concentrate) *ANALGESICS - OPIOID*] Drug Allergy [facility] Work Phone: Comment on above: pass out Sodium Fluoride (4 sources) Sodium Fluoride; Translations: [[facility] Complete *MOUTH/THROAT/DENT AL AGENTS*] Drug Allergy [facility] Work Phone: Comment on above: allergy to [facility] - 2014 (4 sources) amLODIPine; Translations: [NORVASC] Drug Allergy 2016 Nausea [facility] Work Phone: (13 sources) losartan; Translations: [LOSARTAN] Drug Allergy 2016 Emesis [facility] Work Phone: (2 sources) nitrofurantoin Drug Allergy 2016 lightheadedness [facility] Work Phone: (2 sources) HCTZ drug allergy 2016 Emesis [facility] Work Phone: (2 sources) [facility] DENTAL [facility]ENT drug allergy 2016 [facility] Work Phone: (20 sources) hydroCHLOROthiazid e; Translations: [HydroCHLOROthiazi de *DIURETICS*] Drug Allergy 2021 Other [facility] Work Phone: Comment on above: pass out DIZZINESS,NAUSEA (20 sources) Hydrocortisone; Translations: [Cortizone-10 *DERMATOLOGICALS*] Drug Allergy [facility] Work Phone: Comment on above: pass out (20 sources) Morphine; Translations: [Morphine Sulfate (Concentrate) *ANALGESICS - OPIOID*] Drug Allergy 2021 Other [facility] Work Phone: Comment on above: pass out NAUSEA, LIGHTHEADED, HOT (20 sources) NITROFURANTOIN, MACROCRYSTALS / Nitrofurantoin, Monohydrate; Translations: [Macrobid *URINARY ANTI-INFECTIVES*] Drug Allergy [facility] Work Phone: Comment on above: passed out (20 sources) Sodium Fluoride; Translations: [Crest [facility] Complete *MOUTH/THROAT/DENT AL AGENTS*] Drug Allergy [facility] Work Phone: Comment on above: allergy to [facility] - 2014 (20 sources) Amitriptyline; Translations: [Amitriptyline HCl *ANTIDEPRESSANTS*] Drug Allergy 2021 Faint Feeling [facility] Work Phone: (20 sources) atorvastatin; Translations: [Lipitor *ANTIHYPERLIPIDEMI CS*] Drug Allergy [facility] Work Phone: Comment on above: body aches (20 sources) meloxicam; Translations: [Meloxicam *ANALGESICS - ANTI-INFLAMMATORY* ] Drug Allergy 2021 hypotension [facility] Work Phone: Comment on above: hypotension, nausea (20 sources) rosuvastatin; Translations: [Crestor *ANTIHYPERLIPIDEMI CS*] Drug Allergy [facility] Work Phone: Comment on above: GI upset (20 sources) Cortisone; Translations: [CORTISONE] Drug Allergy 2021 Nausea, hot flashes, and passing out [facility] (20 sources) Lidocaine; Translations: [LIDOCAINE] Drug Allergy 2018 [facility] (20 sources) Nitrofurantoin; Translations: [NITROFURANTOIN] Drug Allergy 2016 Other [facility] Comment on above: DIZZINESS,NAUSEA (1 source) Allergy to drug (finding) [facility] Work Phone: (1 source) Allergy to drug (finding) [facility]; [facility] Work Phone: (1 source) Allergy to drug (finding) [facility] Work Phone: (1 source) Allergy to drug (finding) [facility] Work Phone: (1 source) Allergy to drug (finding) [facility] Work Phone: (1 source) Allergy to drug (finding) [facility] Work Phone: (1 source) Allergy to drug (finding) [facility] Work Phone: (1 source) Allergy to drug (finding) [facility] Work Phone: (20 sources) meloxicam; Translations: [MELOXICAM] Drug [facility] ([facility] sources) dilTIAZem; Translations: [DILTIAZEM] Drug Allergy 2023 Faint Feeling [facility] (20 sources) hydroCHLOROthiazid e; Translations: [HYDROCHLOROTHIAZI DE] Drug Allergy 2018 Other [facility] (20 sources) Mirabegron; Translations: [MIRABEGRON] Propensity to adverse reactions to drug 2023 Faint Feeling [facility] (9 sources) amLODIPine; Translations: [AMLODIPINE BASE] Drug Allergy 2016 Nausea [facility] (9 sources) atorvastatin; Translations: [ATORVASTATIN] Drug Allergy 2024 [facility] (9 sources) Sodium Fluoride; Translations: [SODIUM FLUORIDE] Drug Allergy 2024 [facility] (2 sources) Amitriptyline; Translations: [AMITRIPTYLINE] Drug Allergy 2023 [facility] (2 sources) Morphine; Translations: [MORPHINE] Drug Allergy 2023 [facility] (1 source) Cortisone Drug Allergy 2024 [facility] (1 source) hydroCHLOROthiazid e Drug Allergy 2024 [facility] Rep[facility] (1 source) Lidocaine Drug Allergy 2024 [facility] Rep[facility] (1 source) meloxicam Drug Allergy 2024 [facility] (1 source) Nitrofurantoin Drug Allergy 2024 [facility] Rep[facility] Medications Current Medications Medication Drug Class(es) Dates Sig (Normalized) Sig (Original) 2 ml amisulpride 2.5 mg/ml injection (1 source) Start: 10-13-2024 End: 10-13-2024 take 10 mg intravenously once as needed for nausea 10 mg, Intravenous Push, PACU ONCE PRN, Starting on Sun10/13/24 at 1229, Until Sun10/13/24 at 1828, post operative nausea or vomiting, PACU Now amLODIPine 5 mg oral tablet (20 sources) Dihydropyridine Calcium Channel Jessica Start: 08-31-2023 Start: 01-04-2017 take 1 tablet by meron th once daily Amlodipine 5 MG tablet Active 5 mg PO DAILY August 28, 2017 12:00am bp Start: 01-04-2017 take 1 tablet by meron th once daily AMLODIPINE BESYLATE 2.5 MG TABS One tablet by mouth daily AMLODIPINE BESYLATE [id number] Brad Holguin MD Comment on above: Mail order. Xtzcrth-Tmduwhecszsjq-Umhgaa ne (EXCEDRIN ORAL) (20 sources) Aspirin-Acetamin ophen-Caffeine (EXCEDRIN ORAL) Take by mouth as needed. Suspended Aspirin-Acetamin ophen-Caffeine (EXCEDRIN ORAL) Take by mouth as needed. Active bromfenac 0.75 mg/ml ophthalmic solution (20 sources) Nonsteroidal Anti-inflammatory Drug Start: 09-12-2024 take 1 drop(s) into the eye(s) once daily Bromfenac Sodium 0.075 % SOLN INSTILL 1 DROP IN RIGHT EYE DAILY. USE DAILY IN OPERATIVE EYE 3 DAYS PRIOR TO SURGERY AND DAILY AFTER SURGERY 09/12/2024 Active calcium carbonate 1250 mg / cholecalciferol 500 unt / vitamin k1 0.04 mg chewable tablet (20 sources) Vitamin D, Warfarin Reversal Agent, Vitamin K Start: 07-03-2018 Calcium-Vitamin D3-Vitamin K (Viactiv) 500-500-40 mg-unit-mcg tablet,chewable Active 1 {tbl} PO daily 0 July 03, 2018 12:00am Start: 12-25-2016 End: 07-03-2018 take 1 tablet by mouth twice daily Calcium-Vitamin D3-Vitamin K 1 EACH tablet,chewable Discontinued 1 NMA PO TWICE A DAY December 25, 2016 1:00am July 03, 2018 5:31pm supplement Start: 12-25-2016 End: 07-03-2018 Calcium-Vitamin D3-Vitamin K Discontinued 1 EACH PO TWICE A DAY December 25, 2016 1:00am July 03, 2018 5:31pm chlorhexidine gluconate 1.2 mg/ml mouthwash (17 sources) Start: 10-13-2024 take 15 mL by mouth three times daily in the evening chlorhexidine (PERIDEX) 0.12 % oral solution Swish and spit 15 mL by mouth 3 times a day. 473 mL 1 10/13/2024 1:07 PM EST 10/13/2024 Active clobetasol propionate 0.0005 mg/mg topical gel (20 sources) Corticosteroid Start: 09-12-2024 Clobetasol Propionate 0.05 % GEL APPLY TO LESION ON TONGUE/MOUTH 4 TIMES DAILY. DRY AREA BEFORE APPLYING. DO NOT EAT/DRINK/TALK 30 MINUTES AFTER APPLYING 09/12/2024 Active Start: 02-18-2021 Clobetasol 0.0 5 % gel Active 1 NMA TOPICAL DAILY February 18, 2021 12:00am Start: 09-06-2020 End: 02-18-2021 Clobetasol 0.05 % cream Disc ontinued 1 NMA TOPICAL TWICE A DAY September 06, 2020 12:00am February 18, 2021 10:12am clopidogrel 75 mg oral tablet (8 sources) [id number] Platelet Inhibitor Start: 03-10-2025 clopidogrel (PLAVIX) 75 MG tablet 03/10/2025 Active dicyclomine hydrochloride 10 mg oral capsule (20 sources) Anticholinergic Start: 10-07-2021 End: 01-22-2025 take 1 capsule by mouth twice daily as needed Dicyclomine 10 mg capsule Active 10 mg PO TWICE A DAY as needed January 22, 2025 9:35am DICYCLOMINE HCL ORAL Take by mouth as needed. Suspended DICYCLOMINE HCL ORAL Take by mouth as needed. Active diphenhydrAMINE-aluminum & magnesium wnekpqomf-wcbfsmwbmmw-auzzikiic viscous (17 sources) Start: 10-13-2024 take 10 mL by mouth three times daily diphenhydrAMINE-aluminum & magnesium hpzxdihmm-nklqujynmnn-ldmowcleg viscous Take 10 mL by mouth 3 times a day. 473 mL 10/13/2024 Active Start: 10-13-2024 diphenhydrAMIN E-aluminum & magnesium hsuvasiit-iicxagbfrcl-mdodkunsy viscous Swish 15 mL four times a day as needed for pain and spit out. 473 mL 10/13/2024 Active estradiol 0.1 mg/ml vaginal cream (8 sources) Estrogen Start: 02-28-2025 estradiol (ESTRACE) 0.1 MG/GM vaginal cream INSERT 1 GRAM VAGINALLY THREE TIMES WEEKLY BEFORE BED. 01/23/2025 Active hydroxychloroquine sulfate 200 mg oral tablet (20 sources) Antimalarial, Antirheumatic Agent Start: 09-20-2024 take 1 tablet by mouth once daily Hydroxychloroquine 200 mg tablet Active 200 mg PO daily January 22, 2025 1:00am Start: 09-06-2020 End: 01-21-2024 take 1 tablet by mouth once daily Hydroxychloroquine (Plaquenil) 200 mg tablet Discontinued 200 mg PO DAILY September 06, 2020 12:00am January 21, 2024 12:30pm Comment on above: rx by dr arguelles ofloxacin 3 mg/ml ophthalmic solution (20 sources) Quinolone Antimicrobial Start: ofloxacin (OCUFLOX) 0.3 % ophthalmic solution APPLY 1 DROP IN RIGHT EYE 4 TIMES A DAY. 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 You may start taking oxycodone as needed on 10/14 for pain. Do not take with tramadol. 10 Tablet 10/13/2024 1:07 PM EST 10/13/2024 10/18/2024 Active sennosides, snf 8.6 mg oral tablet (17 sources) Start: End: take 1 tablet by mouth once daily as needed for constipation senna (SENOKOT) 8.6 MG tablet Take 1 Tablet by mouth daily as needed for Constipation for up to 7 days. 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 Take as needed on first night after surgery and then stop on 10/14. Do not take with oxycodone. 2 Tablet 10/13/2024 1:07 PM EST 10/13/2024 10/14/2024 Active Start: 10-13-2024 End: 10-13-2024 25 mg, Oral, ONCE PRN, 1 dos e, Starting on Sun10/13/24 at 1241, Until Discontinued, Mild Pain (pain score 1,2,3) Start: 03-06-2018 End: 05-08-2018 take 1 tablet by mouth every four hours as needed for pain Tramadol 50 mg tablet Discontinued 50 mg PO EVERY 4 HOURS NEEDED as needed for Pain 42 3 March 18, 2018 9:40am May 08, 2018 10:18am Presence of right artificial knee joint Start: 02-13-2018 End: 05-08-2018 take 1 tablet by mouth every six hours Tramadol 50 MG tablet Discontinued 50 mg PO EVERY 6 HOURS February 26, 2018 1:14pm May 08, 2018 10:17am pain Completed/Discontinued Medications Medication Drug Class(es) Dates Sig (Normalized) Sig (Original) acetaminophen 500 mg oral tablet (1 source) Start: 10-13-2024 End: 10-13-2024 take 1 dose by mouth once 1,000 mg, Oral, Once, 1 dose, On Sun10/13/24 at 1030 Start: 10-13-2024 End: 10-13-2024 take 1 dose by mouth once 1,000 mg, Oral, Once, 1 dose , On Sun10/13/24 at 1030 acetaminophen 250 mg / aspirin 250 mg / caffeine 65 mg oral tablet (20 sources) Platelet Aggregation Inhibitor, Nonsteroidal Anti-inflammatory Drug, Central Nervous System Stimulant, Methylxanthine Start: 04-12-2016 End: 04-21-2020 acetaminophen 325 mg / HYDROcodone bitartrate 5 mg oral tablet (11 sources) Opioid Agonist Start: 10-12-2017 End: 01-16-2018 Hydrocodone-Acetami nophen 1 TABLET tablet Discontinued 1 {tbl} PO EVERY 6 HOURS NEEDED as needed for Pain 5 0 October 12, 2017 1:00am January 16, 2018 1:54pm Start: 10-12-2017 End: 01-16-2018 take 1 tablet by mouth every six hours as needed Hydrocodone-Acetaminophen Discontinued 1 TABLET PO EVERY 6 HOURS NEEDED October 12, 2017 1:00am January 16, 2018 1:54pm amitriptyline hydrochloride 50 mg oral tablet (20 sources) Tricyclic Antidepressant Start: 09-12-2018 End: 09-12-2018 Start: 09-12-2018 End: 09-12-2018 take 0.5 tablet by mouth once daily at bedtime Amitriptyline HCl 50 MG Oral Tablet 1/2 (one half) Tablet qhs for 0 days Quantity: 60 {Tablet} Refills: 0 Ordered: 12-Sep-2018 Raquel Mauro DO, DO, Kathleen Start : 12-Sep-2018 End : 12-Sep-2018 Discontinued Comments: excessive drowisness Comment on above: excessive drowisness amoxicillin 875 mg / clavula george 125 mg oral tablet (20 sources) Penicillin-class Antibacterial Start: 07-25-2016 End: 12-28-2016 Start: 07-25-2016 End: 12-28-2016 take 1 tablet by mouth twice daily Augmentin 875-125 MG Oral Tablet 1 (one) Tablet Tablet bid for 0 days Quantity: 20 {Tablet} Refills: 0 Ordered: 28-Dec-2016 Sherri Medina RN Start : 25-Jul-2016 End : 28-Dec-2016 Inactive aspirin 81 mg delayed release oral tablet (20 sources) Nonsteroidal Anti-inflammatory Drug Start: 04-12-2016 End: 09-22-2022 take 1 tablet by mouth once daily Aspirin 81 MG tablet Discontinued 81 mg PO DAILY@0800 December 25, 2016 1:00am March 06, 2018 7:59am [facility] NHRPJSU-VSUFTOBCLUQSW-QRMWBI NE (2 sources) Start: 01-03-2017 EXCEDRIN EXTRA STRENGTH 250-250-65 MG TABS As needed [id number] Casandra Nelson RN atorvastatin 20 mg oral tabl et (20 sources) HMG-Co A Reduct ase Inhibi tor Start: 01-08-2023 End: 05-07-2025 take 1 tablet by mouth at bedtim e Atorvastatin 20 mg tablet Discontinued 20 mg PO AT BEDTIME 90 3 January 22, 2025 11:34am May 07, 2025 3:10pm Start: 10-09-2019 End: 04-21-2020 Start: 10-09-2019 End: 04-21-2020 take 0.5 tablet by mouth once daily Lipitor 10 MG Oral Tablet 1/2 Tablet qd for 0 days Quantity: 90 {Tablet} Refills: 0 Ordered: 21-Apr-2020 Rodolfo Shamika ALEX Start : 09-Oct-2019 End : 21-Apr-2020 Inactive Comments: Mail order. Start: 09-03-2019 End: 09-06-2020 Atorvastatin 10 mg tablet Discontinued PO .QOD 90 0 September 08, 2019 9:04am September 06, 2020 9:28am Start: 09-03-2019 End: 09-08-2019 Atorvastatin Discontinued PO 90 September 03, 2019 12:00am September 08, 2019 9:06am Start: 07-03-2019 take 1 tablet by meron th once daily Lipitor 10 MG Oral Tablet 1 (one) Tablet qd for 0 days Quantity: 90 {Tablet} Refills: 0 Ordered: 03-Jul-2019 Raquel Mauro DO, DO, Kathleen Start : 03-Jul-2019 Active Comments: Mail order. Start: 03-19-2019 take 1 tablet by meron th once daily Lipitor 10 MG Oral Tablet 1 (one) Tablet qd for 30 days Quantity: 30 {Tablet} Refills: 3 Ordered: 19-Mar-2019 Clarita Forrest Start : 19-Mar-2019 Active Comment on above: Mail order. azithromycin 250 mg oral tablet (14 sources) Macrolide Antimicrobial Start: 11-30-2021 End: 09-22-2022 Comment on above: 1 package b12 droplet (14 sources) b12 droplet Acti ve benzonatate 100 mg oral capsule (14 sources) Non-narcotic Antitussive Start: 11-30-2021 End: 01-04-2023 Betafood (11 sources) Start: 02-26-2018 End: 05-08-2018 Betafood Discontinued 2 {tbl} PO TWICE A DAY February 26, 2018 12:00am May 08, 2018 10:19am supplement Start: 02-26-2018 End: 05-08-2018 Betafood Discontinued 2 {tbl } PO TWICE A DAY February 26, 2018 12:00am May 08, 2018 10:19am Start: 02-26-2018 End: 05-08-2018 take 2 tablets by mouth twice daily Betafood Discontinued 2 TABLET PO TWICE A DAY February 25, 2018 11:00pm May 08, 2018 9:19am Start: 02-26-2018 End: 05-08-2018 take 2 tablets by mouth twice daily Betafood Discontinued 2 TABLET PO TWICE A DAY February 26, 2018 12:00am May 08, 2018 10:19am betamethasone 0.0005 mg/mg topical ointment (20 sources) Corticosteroid Start: 09-08-2019 End: 09-06-2020 Betamethasone Dipropionate 0.05 % ointment Discontinued 1 NMA TOPICAL TWICE A DAY September 08, 2019 12:00am September 06, 2020 9:30am Comment on above: on tongue calcium carbonate 1625 mg / cholecalciferol 0.0125 mg / vitamin k 0.04 mg chewable tablet (20 sources) Vitamin D Start: 04-12-2016 Start: 04-12-2016 take 2 tablets by mo [facility] once daily VIACTIV, [id number] (Oral Tablet Chewable) 2 (two) Tablet Chewable qd for 0 days Quantity: 60 {Tablet} Refills: 3 Ordered: 12-Apr-2016 Ari Rock MD Start : 12-Apr-2016 Active CALCIUM-VITAMIN D-VITAMIN K CHEW (2 sources) Start: 01-03-2017 VIACTIV CHEW Soft calcium Chews - One tablet by mouth twice daily CALCIUM-VITAMIN D-VITAMIN K CHEW [id number] Casandra Nelson RN carvedilol 6.25 mg oral tablet (20 sources) alpha-Adrenergic Jessica, beta-Adrenergic Jessica Start: 12-28-2016 End: 01-25-2017 celecoxib 100 mg oral capsule (11 sources) Nonsteroidal Anti-inflammatory Drug Start: 07-21-2021 End: 10-07-2021 take 1 capsule by mouth twice daily Celecoxib (Celebrex) 100 mg capsule Discontinued 100 mg PO TWICE A DAY 30 0 July 21, 2021 12:00am October 07, 2021 11:18am Chlorphil Couplex (11 sources) Start: 02-26-2018 End: 05-08-2018 Chlorphil Couplex Discontinued 1 NMA PO THREE TIMES A DAY February 26, 2018 12:00am May 08, 2018 10:19am supplement Start: 02-26-2018 End: 05-08-2018 Chlorphil Couplex Discontinu ed 1 NMA PO THREE TIMES A DAY February 26, 2018 12:00am May 08, 2018 10:19am Start: 02-26-2018 End: 05-08-2018 take 1 capsule by mouth three times daily Chlorphil Couplex Discontinued 1 CAP PO THREE TIMES A DAY February 25, 2018 11:00pm May 08, 2018 9:19am Start: 02-26-2018 End: 05-08-2018 take 1 capsule by mouth three times daily Chlorphil Couplex Discontinued 1 CAP PO THREE TIMES A DAY February 26, 2018 12:00am May 08, 2018 10:19am cholecalciferol 0.125 mg oral tablet (20 sources) Vitamin D Start: 07-08-2018 End: 01-22-2025 take 1 tablet by mouth once daily Cholecalciferol (Vitamin D3) 5,000 unit tablet Discontinued 5000 U PO daily July 08, 2018 12:00am January 22, 2025 9:35am Start: 12-25-2016 End: 07-03-2018 take 1 capsule by mouth once daily Cholecalciferol (Vitamin D3) 5,000 UNIT capsule Discontinued 5000 U PO DAILY December 25, 2016 1:00am July 03, 2018 5:31pm supplement Start: 04-12-2016 Start: 04-12-2016 take 1 capsule by [facility] once daily VITAMIN D3, [id number] (Oral Capsule) 1 (one) Capsule qd for 0 days Quantity: 30 {Capsule} Refills: 3 Ordered: 12-Apr-2016 Ari Rock MD Start : 12-Apr-2016 Active ciprofloxacin 500 mg oral tablet (20 sources) Quinolone Antimicrobial Start: 01-26-2017 End: 02-02-2017 clonazePAM 1 mg disintegrating oral tablet (20 sources) Benzodiazepine Comment on above: Dr.Shane Arguelles clotrimazole 10 mg oral lozenge (20 sources) Azole Antifungal Start: 08-22-2018 End: 03-13-2019 docusate sodium 100 mg oral capsule (11 sources) Start: 03-06-2018 End: 05-08-2018 take 1 capsule by mouth twice daily as needed for constipation Docusate Sodium 100 MG capsule Discontinued 100 mg PO TWICE DAILY NEEDED as needed for Constipation 10 March 06, 2018 12:00am May 08, 2018 10:19am DULoxetine 30 mg delayed release oral capsule (11 sources) Serotonin and Norepinephrine Reuptake Inhibitor Start: 01-21-2024 End: 01-22-2025 take 1 capsule by mouth once daily Duloxetine (Cymbalta) 30 mg capsule,delayed release(DR/EC) Discontinued 30 mg PO DAILY January 21, 2024 1:00am January 22, 2025 9:36am EPINEPHrine 0.01 mg/ml / lidocaine hydrochloride 10 mg/ml injectable solution (12 sources) Antiarrhythmic, alpha-Adrenergic Agonist, beta-Adrenergic Agonist, Catecholamine, Amide Local Anesthetic Start: 03-11-2025 End: 03-11-2025 lidocaine-EPINEP Hrine (XYLOCAINE) 1 %-1:276248 injection SOLN Start: 03-11-2025 End: 03-11-2025 3.6 mL, Injection, ONCE, 1 d ose, On Sun03/11/25 at 1130 Start: 03-11-2025 End: 03-11-2025 lidocaine-EPINEPHrine (XYLOC DANIE) 1 %-1:170078 injection SOLN Start: 03-11-2025 End: 03-11-2025 3.6 mL, Injection, ONCE, 1 d ose, On Sun03/11/25 at 1130 Start: 03-11-2025 End: 03-11-2025 lidocaine-EPINEPHrine (XYLOC DANIE) 1 %-1:[id number] injection SOLN Start: 03-11-2025 End: 03-11-2025 3.6 mL, Injection, ONCE, 1 d ose, On Sun03/11/25 at 1130 Start: 03-11-2025 End: 03-11-2025 lidocaine-EPINEPHrine (XYLOC DANIE) 1 %-1:882737 injection SOLN Start: 03-11-2025 End: 03-11-2025 3.6 mL, Injection, ONCE, 1 d ose, On Sun03/11/25 at 1130 Start: 03-11-2025 End: 03-11-2025 lidocaine-EPINEPHrine (XYLOC DANIE) 1 %-1:275992 injection SOLN Start: 03-11-2025 End: 03-11-2025 3.6 mL, Injection, ONCE, 1 d ose, On 4/16/25 at 1130 Start: 03-11-2025 End: 03-11-2025 lidocaine-EPINEPHrine (XYLOC DANIE) 1 %-1:[id number] injection SOLN Start: 03-11-2025 End: 03-11-2025 3.6 mL, Injection, ONCE, 1 d ose, On Sun03/11/25 at 1130 ergocalciferol 1.25 mg oral capsule (13 sources) Provitamin D2 Compound Start: 07-03-2018 End: 07-08-2018 Ergocalciferol (Vitamin D2) 50,000 unit capsule Discontinued 58465 U PO EVERY WEEK July 03, 2018 12:00am July 08, 2018 12:11pm Start: 01-03-2017 take 1 tablet by meron th once daily VITAMIN D (ERGOCALCIFEROL) 87439 UNIT CAPS One tablet by mouth daily ERGOCALCIFEROL [id number] Casandra Nelson RN esomeprazole 40 mg delayed r elease oral capsule (20 sources) Proton Pump Inhibitor Start: 04-12-2016 End: 04-26-2017 Comment on above: generic okay Estradioil (14 sources) Estradioil Activ e famotidine 40 mg oral tablet (11 sources) Histamine-2 Receptor Antagonist Start: 8 End: 8 take 1 tablet by mouth once daily Famotidine 40 MG tablet Discontinued 40 mg PO DAILY 30 2 March 06, 2018 12:00am May 08, 2018 10:18am Fencho (11 sources) Start: 8 End: 8 Fencho Discontinued 1 NMA PO THREE TIMES A DAY February 26, 2018 12:00am May 08, 2018 10:18am supplement Start: 02-26-2018 End: 05-08-2018 Fencho Discontinued 1 NMA PO THREE TIMES A DAY February 26, 2018 12:00am May 08, 2018 10:18am Start: 02-26-2018 End: 05-08-2018 take 1 capsule by mouth three times daily Fencho Discontinued 1 CAP PO THREE TIMES A DAY February 25, 2018 11:00pm May 08, 2018 9:18am Start: 02-26-2018 End: 05-08-2018 take 1 capsule by mouth three times daily Fencho Discontinued 1 CAP PO THREE TIMES A DAY February 26, 2018 12:00am May 08, 2018 10:18am fluconazole 150 mg oral tablet (20 sources) Azole Antifungal Start: 09-08-2019 End: 09-06-2020 take 1 tablet by mouth every week Fluconazole 150 mg tablet Discontinued 150 mg PO EVERY WEEK September 08, 2019 12:00am September 06, 2020 9:31am Gb Tone (11 sources) Start: 02-26-2018 End: 05-08-2018 Gb Tone Discontinued 26 NMA PO THREE TIMES A DAY February 26, 2018 12:00am May 08, 2018 10:18am supplement Start: 02-26-2018 End: 05-08-2018 Gb Tone Discontinued 26 NMA PO THREE TIMES A DAY February 26, 2018 12:00am May 08, 2018 10:18am Start: 02-26-2018 End: 05-08-2018 Gb Tone Discontinued 26 DRP PO THREE TIMES A DAY February 25, 2018 11:00pm May 08, 2018 9:18am Start: 02-26-2018 End: 05-08-2018 Gb Tone Discontinued 26 DRP PO THREE TIMES A DAY February 26, 2018 12:00am May 08, 2018 10:18am Herbal laxative (14 sources) Herbal laxative Active hydroCHLOROthiazide 25 mg or al tablet (20 sources) Thiazide Diuretic Start: 08-10-2017 End: 04-19-2018 Start: 08-10-2017 End: 04-19-2018 take 0.5 tablet by mouth once daily HydroCHLOROthiazide 25 MG Oral Tablet 1/2 Tablet qd for 0 days Quantity: 15 {Tablet} Refills: 3 Ordered: 19-Apr-2018 Arlene Bland RN Start : 10-Aug-2017 End : 19-Apr-2018 Inactive hydrocortisone acetate 25 mg rectal suppository (20 sources) Corticosteroid Start: 05-30-2019 End: 04-21-2020 Start: 05-22-2019 End: 03-13-2019 Hydrocortisone Acetate 25 MG Rectal Suppository 1 (one) Suppository bid prn for 0 days Quantity: 3 {Box} Refills: 2 Ordered: 22-May-2019 Raquel Mauro DO, DO, Kathleen Start : 22-May-2019 End : 13-Mar-2019 Active Start: 05-22-2019 End: 03-13-2019 Hydrocortisone Acetate 25 MG Rectal Suppository 1 (one) Suppository bid prn for 90 days Quantity: 3 {Suppository} Refills: 2 Ordered: 22-May-2019 Raquel Mauro DO, DO, Kathleen Start : 22-May-2019 End : 13-Mar-2019 Active Comments: Mail order. Start: 04-19-2018 End: 03-13-2019 Hydrocortisone Acetate 25 MG Rectal Suppository 1 (one) Suppository bid prn for 90 days Quantity: 3 {Suppository} Refills: 2 Ordered: 13-Mar-2019 Clarita Forrest Start : 19-Apr-2018 End : 13-Mar-2019 Discontinued Comments: Mail order. Comment on above: Mail order. ibuprofen 200 mg oral tablet (20 sources) Nonsteroidal Anti-inflammatory Drug Start: 0 End: 1 take 1 tablet by mouth every six hours as needed Ibuprofen (Advil) 200 mg tablet Discontinued 200 mg PO EVERY 6 HOURS as needed September 06, 2020 12:00am October 07, 2021 11:18am advil Active losartan potassium 50 mg oral tablet (20 sources) Angiotensin 2 Receptor Jessica Start: 07-25-2016 End: 07-25-2016 Comment on above: patient felt terrible' meloxicam 7.5 mg oral tablet (20 sources) Nonsteroidal Anti-inflammatory Drug Start: 07-20-2021 End: 07-21-2021 take 1 tablet by mouth once daily, then take 2 tablets by mouth once daily Meloxicam (Mobic) 7.5 mg tablet Discontinued 7.5 mg PO DAILY 35 0 July 20, 2021 12:00am July 21, 2021 10:31am Take 1 tablet/day for 1 week if no side effect may increase to 2 tablets daily. Do not take in conjunction with ibuprofen or other NSAID. methylPREDNISolone 4 mg oral tablet (11 sources) Corticosteroid Start: 09-03-2019 End: 09-06-2020 take 1 tablet by mouth once Methylprednisolone (Medrol (Hill)) 4 mg tablets,dose pack Discontinued 0 PO per package directions 21 0 September 03, 2019 12:00am September 06, 2020 9:31am take as directed miconazole nitrate 20 mg/ml topical cream (20 sources) Azole Antifungal Start: 12-14-2016 End: 01-25-2017 Start: 12-14-2016 End: 01-25-2017 Miconazole Nitrate 2 % Exter nal Cream 1 (one) Cream Cream BID for 7 days Quantity: 1 {Tube} Refills: 3 Ordered: 25-Jan-2017 KAMILAH Rosen LPN Start : 14-Dec-2016 End : 25-Jan-2017 Inactive mirabegron (14 sources) beta3-Adrenergic Agonist Myrbetr iq Active 1 ml naloxone hydrochloride 0.4 mg/ml injection (1 source) Opioid Antagonist Start: 10-13-20 24 0.4 mg, Intravenous Push, PRN, Starting on Sun10/13/24 at 1228, Until Discontinued, Respiratory Rate Less Than 8 for adults and less than 12 for Peds or for suspected overdose, PACU Now naproxen sodium 220 mg oral tablet (13 sources) Nonsteroidal Anti-inflammatory Drug Start: 07-03-20 End: 09-08-20 take 1 tablet by mouth twice daily as needed Naproxen Sodium (Aleve) 220 mg tablet Discontinued 220 mg PO TWICE A DAY as needed July 03, 2018 12:00am September 08, 2019 9:06am Start: 01-04-2017 ALEVE 220 MG T ABS PRN NAPROXEN SODIUM [id number] Brad Holguin MD nitrofurantoin, macrocrystals 25 mg / nitrofurantoin, monohydrate 75 mg oral capsule (20 sources) Nitrofuran Antibacterial Start: 01-25-2017 End: 01-26-2017 Comment on above: May substitute gener ic nystatin 809138 unt/ml oral suspension (16 sources) Polyene Antifungal Start: 07-08-2024 End: 10-01-2024 nystatin (MYCOSTATIN) 875928 UNIT/ML oral suspension SWISH 5-10 ML IN MOUTH FOR 30 SECONDS THEN SPIT 5 TIMES PER DAY 07/08/2024 10/01/2024 Discontinued Start: 09-06-2020 End: 01-22-2025 take 1 mL by mouth once daily Nystatin 100,000 unit/mL suspension Discontinued 1 mL PO DAILY September 06, 2020 12:00am January 22, 2025 9:36am swish and swallow Start: 09-06-2020 take 1 mL by mouth once daily Nystatin Active 1 ML PO DAILY September 06, 2020 12:00am swish and swallow Nystatin oral swish and spit 5-10 ml 5 days (14 sources) Nystatin oral sw misty and spit 5-10 ml 5 days Active pantoprazole 20 mg delayed release oral tablet (18 sources) Proton Pump Inhibitor Start: End: take 2 tablets by mouth once daily Pantoprazole 20 mg tablet,delayed release (DR/EC) Discontinued 40 mg PO DAILY November 02, 2022 4:38pm January 22, 2025 9:35am Start: 11-02-2022 take 40 mg by mouth once daily Pantoprazole Active 40 MG PO DAILY November 02, 2022 4:38pm Start: 10-07-2021 End: 11-02-2022 take 1 tablet by mouth once daily Pantoprazole 20 mg tablet,delayed release (DR/EC) Discontinued 20 mg PO DAILY October 07, 2021 1:00am November 02, 2022 4:39pm polyvinyl alcohol 0.014 ml/ml / povidone 6 mg/ml ophthalmic solution (11 sources) Start: 12-25-2016 End: 05-08-2018 Polyvinyl Alcohol-Povidon(Pf) 1 EACH dropperette Discontinued 1 NMA OP DAILY as needed for Dry Eyes December 25, 2016 1:00am May 08, 2018 10:18am promethazine hydrochloride 25 mg oral tablet (11 sources) Phenothiazine Start: 03-06-2018 End: 05-08-2018 take 1 tablet by mouth every four hours as needed for nausea Promethazine 25 MG tablet Discontinued 25 mg PO EVERY 4 HOURS NEEDED as needed for Nausea 10 0 March 06, 2018 12:00am May 08, 2018 10:18am rosuvastatin calcium 5 mg oral tablet (20 sources) HMG-CoA Reductase Inhibitor Start: 03-13-2019 End: 03-13-2019 Comment on above: stomach ache 20 ml sodium chloride 9 mg/ml injection (1 source) Start: 10-13-2024 3 mL, Intravenous Push, PRN, Starting on 10/13/24 at 1228, Until Discontinued, For medication administration and blood draw, PACU Now Swedish Black Radish (11 sources) Start: 02-26-2018 End: 05-08-2018 Rogelio Escalante Radish Discontinued 1 {tbl} PO THREE TIMES A DAY February 26, 2018 12:00am May 08, 2018 10:18am supplement Start: 02-26-2018 End: 05-08-2018 Swedish Black Radish Discont inued 1 {tbl} PO THREE TIMES A DAY February 26, 2018 12:00am May 08, 2018 10:18am Start: 02-26-2018 End: 05-08-2018 take 1 tablet by mouth three times daily Swedish Black Radish Discontinued 1 TABLET PO THREE TIMES A DAY February 25, 2018 11:00pm May 08, 2018 9:18am Start: 02-26-2018 End: 05-08-2018 take 1 tablet by mouth three times daily Swedish Black Radish Discontinued 1 TABLET PO THREE TIMES A DAY February 26, 2018 12:00am May 08, 2018 10:18am Spleen Dessicated (11 sources) Start: 02-26-2018 End: 05-08-2018 Spleen Dessicated Discontinu ed 1 {tbl} PO TWICE A DAY February 26, 2018 12:00am May 08, 2018 10:18am supplement Start: 02-26-2018 End: 05-08-2018 Spleen Dessicated Discontinu ed 1 {tbl} PO TWICE A DAY February 26, 2018 12:00am May 08, 2018 10:18am Start: 02-26-2018 End: 05-08-2018 take 1 tablet by mouth twice daily Spleen Dessicated Discontinued 1 TABLET PO TWICE A DAY February 25, 2018 11:00pm May 08, 2018 9:18am Start: 02-26-2018 End: 05-08-2018 take 1 tablet by mouth twice daily Spleen Dessicated Discontinued 1 TABLET PO TWICE A DAY February 26, 2018 12:00am May 08, 2018 10:18am Spleen Pmg (11 sources) Start: 02-26-2018 End: 05-08-2018 Spleen Pmg Discontinued 1 {t bl} PO THREE TIMES A DAY February 26, 2018 12:00am May 08, 2018 10:18am supplement Start: 02-26-2018 End: 05-08-2018 Spleen Pmg Discontinued 1 {t bl} PO THREE TIMES A DAY February 26, 2018 12:00am May 08, 2018 10:18am Start: 02-26-2018 End: 05-08-2018 take 1 tablet by mouth three times daily Spleen Pmg Discontinued 1 TABLET PO THREE TIMES A DAY February 25, 2018 11:00pm May 08, 2018 9:18am Start: 02-26-2018 End: 05-08-2018 take 1 tablet by mouth three times daily Spleen Pmg Discontinued 1 TABLET PO THREE TIMES A DAY February 26, 2018 12:00am May 08, 2018 10:18am supplements (20 sources) supplements uad uad Inactive Comments: gastrx, cruciferous complete, parotid pmg, fencha, arginex, biodent, hydrangea blend supplements uad uad Active Comments: gastrx, cruciferous complete, parotid pmg, fencha, arginex, biodent, hydrangea blend Comment on above: gastrx, cruciferous complete, parotid pmg, fencha, arginex, biodent, hydrangea blend traZODone hydrochloride 50 mg oral tablet (20 sources) Serotonin Reuptake Inhibitor Start: 7 End: 8 Vitamin B Complex (9 sources) Start: 0 End: 1 take 1 tablet by mouth once daily Vitamin B Complex Discontinued 1 TABLET PO DAILY September 05, 2020 11:00pm February 18, 2021 9:12am Start: 09-06-2020 End: 02-18-2021 take 1 tablet by mouth once daily Vitamin B Complex Discontinued 1 TABLET PO DAILY September 06, 2020 12:00am February 18, 2021 10:12am Vitamin B Complex tablet (2 sources) Start: 09-06-2020 End: 02-18-2021 Vitamin B Complex tablet Discontinued 1 {tbl} PO DAILY September 06, 2020 12:00am February 18, 2021 10:12am Zinc (11 sources) Start: 02-18-2021 End: 11-02-2022 take 1 tablet by mouth once daily Zinc 50 mg tablet Discontinued 50 mg PO DAILY February 18, 2021 12:00am November 02, 2022 4:39pm Start: 02-18-2021 End: 11-02-2022 take 50 mg by mouth once daily Zinc Discontinued 50 MG PO DAILY February 18, 2021 12:00am November 02, 2022 4:39pm Start: 02-18-2021 End: 11-02-2022 take 50 mg by mouth once daily Zinc Discontinued 50 MG PO DAILY February 17, 2021 11:00pm November 02, 2022 3:39pm Start: 02-18-2021 take 50 mg by mouth once daily Zinc Active 50 MG PO DAILY February 17, 2021 11:00pm Start: 02-18-2021 take 50 mg by mouth once daily Zinc Active 50 MG PO DAILY February 18, 2021 12:00am zolpidem tartrate 5 mg oral tablet (20 sources) gamma-Aminobutyric Acid-ergic Agonist Start: 07-03-2018 End: 07-08-2018 take 1 tablet by mouth at bedtime as needed Zolpidem 5 mg tablet Discontinued 5 mg PO AT BEDTIME as needed July 03, 2018 12:00am July 08, 2018 12:12pm Start: 01-03-2017 End: 04-19-2018 Comment on above: Mail order. ninety Zypan (11 sources) Start: 02-26-2018 End: 05-08-2018 Zypan Discontinued 1 {tbl} P O THREE TIMES A DAY February 26, 2018 12:00am May 08, 2018 10:17am supplement Start: 02-26-2018 End: 05-08-2018 Zypan Discontinued 1 {tbl} P O THREE TIMES A DAY February 26, 2018 12:00am May 08, 2018 10:17am Start: 02-26-2018 End: 05-08-2018 take 1 tablet by mouth three times daily Zypan Discontinued 1 TABLET PO THREE TIMES A DAY February 25, 2018 11:00pm May 08, 2018 9:17am Start: 02-26-2018 End: 05-08-2018 take 1 tablet by mouth three times daily Zypan Discontinued 1 TABLET PO THREE TIMES A DAY February 26, 2018 12:00am May 08, 2018 10:17am Problems Active Problems Problem Classification Problem Date Documented Date Episodic/Chronic Cancer of head and neck (20 sources) Malignant tumor of tongue; Translations: [Malignant neoplasm of tongue, unspecified] Onset: 024 09-17-2024 Chronic Conduction disorders (8 sources) Pulse missed beats; Translations: [Skipped heart beats] 04-13-2023 Chronic Congestive heart failure; nonhypertensive (20 sources) Left ventricular diastolic dysfunction ; Translations: [Diastolic dysfunction, left ventricle] 03-13-2019 Chronic Deficiency and other anemia (20 sources) Anemia; Translations: [Anemia] 03-13-2019 Episodic Comment on above: 1958 Deficiency and other anemia (20 sources) Nutritional anemia; Translations: [Anemia due to vitamin B12 deficiency, unspecified B12 deficiency type] 10-09-2019 Episodic Deficiency and other anemia (1 source) Anemia, unspecified; Translations: [Anemia, unspecified] Onset: Episodic Deficiency and other anemia (20 sources) Deficiency and other anemia Diseases of mouth; excluding dental (20 sources) Burning mouth syndrome ; 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 ] 03-13-2019 Episodic Comment on above: dopoing better on im [employer] and and clomizole patient reports: ins omaira cheek, roof of mouth, 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 - had been treated with clotrimazole 10mg lozenge 5x daily in february and also cobetasol proprionate 0.05% gel for upper and lower mouth peice and dexamwthasone annd nystatin for yeast.cheek Biopsy indeterminate-- saw Hesler and now rheum -- getting another lip biopsy insept 2017 Disorders of lipid metabolism (20 sources) Hyperlipidemia; Translations: [Hyperlipemia] Onset: 025 03-19-2019 Chronic Comment on above: didnt tolerate crest or Diverticulosis and diverticulitis (11 sources) Diverticulitis; Translations: [Diverticulitis of intestine, part unspecified, without perforation or abscess without bleeding] 10-07-2021 Chronic Esophageal disorders (20 sources) Gastroesophageal reflux disease; Translations: [Chronic GERD] Onset: 017 01-03-2017 Chronic Comment on above: hiatal hernia , no r eflux Esophageal disorders (20 sources) Esophageal disorders Essential hypertension (20 sources) Hypertensive disorder; Translations: [Hypertension] Onset: 017 01-03-2017 Chronic Comment on above: Not been able to tam p BP under control in 2015,labile BP since moved from [place].BP at em varies Fever of unknown origin (20 sources) Fever with chills Episodic Genitourinary symptoms and ill-defined conditions (20 sources) Dysuria; Translations: [Increased frequency of urination] Resolve d: 018 04-19-2018 Episodic Comment on above: voids 4 times at nig ht Headache; including migraine (20 sources) Headache; Translations: [Headache] Resolve d: 018 04-19-2018 Episodic Comment on above: excedrin takes care of [id number] up with headaches or in the middle of the night-03/05 in severityused to have it eveyday before, not frequent anymore Heart valve disorders (20 sources) Aortic valve disorder; Translations: [Tricuspid valve regurgitation] Onset: 017 01-04-2017 Chronic Comment on above: Moodispaw Hemorrhoids (20 sources) Hemorrhoids; Translations: [Hemorrhoids, unspecified hemorrhoid type] Resolve d: 017 04-26-2017 Episodic Comment on above: 1962 Immunizations and screening for infectious disease (20 sources) Need for prophylactic vaccination and inoculation against influenza; Translations: [Pneumococcal vaccination given] 09-12-2018 Episodic Comment on above: positive for covid y ester11-29-20 Positive #9 today is Day 10. Inflammatory diseases of female pelvic organs (20 sources) Vaginitis; Translations: [Vaginitis] 06-14-2020 Episodic Mycoses (20 sources) Candidal stomatitis; Translations: [Tinea unguium] Resolve d: 018 03-13-2019 Episodic Nutritional deficiencies (20 sources) Vitamin D deficiency; Translations: [Vitamin D deficiency] 03-13-2019 Chronic Other aftercare (20 sources) Follow-up status; Translations: [Encounter for colonoscopy due to history of colonic polyp] 03-13-2019 Episodic Comment on above: Dr Doshi, 2015,Has p olyps so repeat every 3 years Other aftercare (20 sources) Patient encounter status; Translations: [Therapeutic drug monitoring] 06-14-2020 Episodic Other and ill-defined heart disease (11 sources) Diastolic dysfunction; Translations: [Other ill-defined heart diseases] 07-03-2018 Chronic Other and unspecified benign neoplasm (20 sources) Polyp of colon; Translations: [Colon polyps] 03-13-2019 Episodic Comment on above: last scope spr 2017- - does them q3yr Other bone disease and musculoskeletal deformities (20 sources) Osteopenia; Translations: [Osteopenia, unspecified location] 03-13-2019 Episodic Comment on above: pt did not want bone meds Other circulatory disease (11 sources) H/O: heart disorder; Translations: [Personal history of other diseases of the circulatory system] 07-03-2018 Episodic Other connective tissue disease (20 sources) Leg swelling symptom; Translations: [Swelling of lower limb] Resolve d: 018 04-19-2018 Episodic Comment on above: Swelling in leg: lym phedemaEchoCompression stocking for both legs.Watch salt and fluid intake.Elevate legs.Occupational Therapy appointment for lymphedema.Pt was given a refferal.1 year: L>R.Echo: 05/11 Other connective tissue disease (11 sources) Impingement syndrome of shoulder region; Translations: [Impingement syndrome of right shoulder] 07-20-2021 Episodic Other connective tissue disease (11 sources) Swelling of lower limb; Translations: [Other specified soft tissue disorders] 07-03-2018 Episodic Other connective tissue disease (11 sources) Pain in bilateral lower legs; Translations: [Pain in right lower leg] 07-03-2018 Episodic Other connective tissue disease (9 sources) Biceps tendinitis; Translations: [Bicipital tendinitis, right shoulder] 07-20-2021 Episodic Other connective tissue disease (10 sources) History of lumbar fusion; Translations: [Arthrodesis status] 08-11-2022 Episodic Other connective tissue disease (6 sources) Arthrodesis status; Translations: [Arthrodesis status] Episodic Other connective tissue disease (2 sources) Iliotibial band friction syndrome of right knee; Translations: [Iliotibial band syndrome, right leg] 06-16-2024 Episodic Other connective tissue disease (2 sources) Peroneal tendinitis; Translations: [Peroneal tendinitis, right leg] 06-16-2024 Episodic Other connective tissue disease (2 sources) Bicipital tendinitis, right shoulder; Translations: [Biceps tendinitis of right upper extremity] 07-20-2021 Episodic Other connective tissue disease (1 source) Trochanteric bursitis, right hip; Translations: [Trochanteric bursitis, right hip] Onset: 025 Episodic Other diseases of veins and lymphatics (20 sources) Peripheral venous insufficiency; Translations: [Venous insufficiency] 03-13-2019 Episodic Comment on above: asure leg elevation - wear compression stockings,low salt Other ear and sense organ disorders (20 sources) Impacted cerumen; Translations: [Cerumen impaction] Resolve d: 016 04-26-2017 Episodic Comment on above: right Other endocrine disorders (20 sources) Hormone level - finding; Translations: [Elevated brain natriuretic peptide (BNP) level] 03-13-2019 Episodic Comment on above: and abnormal ekg R94 .31 Other gastrointestinal disorders (1 source) Change in bowel habit; Translations: [Change in bowel habit] Onset: 025 Episodic Other inflammatory condition of skin (20 sources) Lichenoid drug eruption; 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 need to increase water and liquidify the mucous saline rinse sinus nettipot Other lower respiratory disease (20 sources) Snoring; Translations: [Snores] Resolve d: 017 04-26-2017 Episodic Comment on above: sleep studySnores at nightTired during the day, naps during the dayObesity :BMI 28.7HTNAge:73Neck circumference:<16 Other nervous system disorders (2 sources) Carpal tunnel syndrome; Translations: [Carpal tunnel syndrome, left upper limb] Onset: 017 09-27-2017 Chronic Other non-epithelial cancer of skin (20 sources) Basal cell carcinoma of skin; Translations: [Basal cell carcinoma] 03-13-2019 Episodic Comment on above: yealy skin checright neck: surgery 01/11 Other non-traumatic joint disorders (16 sources) Bone spur of vertebra; Translations: [Cervical osteophyte] 01-04-2023 Chronic Other nutritional; endocrine; and metabolic disorders (20 sources) Body mass index 25-29 - overweight; Translations: [BMI 26.0-26.9,adult] Resolve d: 09-12-2018 Chronic Other nutritional; endocrine; and metabolic disorders (20 sources) Body mass index 25-29 - overweight; Translations: [BMI 26.0-26.9,adult] Resolve d: 09-12-2018 Episodic Other nutritional; endocrine; and metabolic disorders (20 sources) Overweight in adulthood with body mass index of 25 or more but less than 30; Translations: [BMI 26.0-26.9,adult] Resolve d: 020 11-30-2021 Episodic Other screening for suspected conditions (not mental disorders or infectious disease) (20 sources) Breast neoplasm screening status; Translations: [Patient encounter status] 03-13-2019 Episodic Comment on above: mamm05/13 h/o polyps does scop es with dr doshi every 3ys Other upper respiratory disease (20 sources) Nasal congestion; Translations: [Nasal congestion] 11-29-2021 Episodic Poisoning by other medications and drugs (20 sources) Adverse reaction to drug; Translations: [Medication side effect] 03-13-2019 Episodic Comment on above: hot and vasovagaled from macrobid-- has gotten htis side effect before from meds Prolapse of female genital organs (20 sources) Cystocele; Translations: [Cystocele with prolapse] 06-14-2020 Chronic Pulmonary heart disease (20 sources) Pulmonary hypertension; Translations: [Chronic pulmonary hypertension] Onset: 017 01-03-2017 Chronic Comment on above: mild on last echo Residual codes; unclassified (20 sources) Obstructive sleep apnea syndrome; Translations: [GERRY on CPAP] 03-13-2019 Chronic Comment on above: wears faithfullly- S ibila manages- annually Residual codes; unclassified (20 sources) Insomnia; Translations: [Insomnia] 03-13-2019 Episodic Comment on above: as needd, stable Residual codes; unclassified (20 sources) Postmenopausal state; Translations: [Postmenopausal (Renamed from Postmenopausal status)] 03-13-2019 Episodic Comment on above: dexa 05/12 Residual codes; unclassified (20 sources) Edema, unspecified; Translations: [Edema] Resolve d: 017 04-26-2017 Episodic Comment on above: Swelling in legs now resolved due to diastolic dysfunction vs lymphedema vs DVT.EchoCompression stocking for both legs.Watch salt and fluid intake.Elevate legs.Swelling in legs since nov 2015.Never had stress testSome SOB go up hill. when worked up.no orthopneaNow having swelling in the face, cheek swelling since november, not painful, not worse in sun.no new cosmetics, color f face is tanSun screen whe go ou, hatsno trouble breathing or swallowing, no swollen tongue, dry moutghLosartan restarted 2 months ago Reports Bilat LE devan ma and reports cheeks get swollen as well Residual codes; unclassified (20 sources) Current non-smoker ; Translations: [Current nonsmoker (Renamed from Current non-smoker)] 09-12-2018 Episodic Residual codes; unclassified (20 sources) Influenza vaccination declined; Translations: [Influenza vaccination declined (Renamed from Refused influenza vaccine)] 06-14-2020 Episodic Comment on above: still considering bu t does not want at this point Residual codes; unclassified (20 sources) Non-smoker; Translations: [Non-smoker] 06-14-2020 Episodic Residual codes; unclassified (20 sources) Edema; Translations: [Edema] Resolve d: 017 04-26-2017 Episodic Comment on above: Swelling in legs now resolved due to diastolic dysfunction vs lymphedema vs DVT.EchoCompression stocking for both legs.Watch salt and fluid intake.Elevate legs.Swelling in legs since nov 2015.Never had stress testSome SOB go up hill. when worked up.no orthopneaNow having swelling in the face, cheek swelling since november, not painful, not worse in sun.no new cosmetics, color f face is tanSun screen whe go ou, hatsno trouble breathing or swallowing, no swollen tongue, dry moutghLosartan restarted 2 months ago Reports Bilat LE devan ma and reports cheeks get swollen as well Residual codes; unclassified (11 sources) Edema of lower extremity; Translations: [Localized edema] 03-05-2018 Episodic Residual codes; unclassified (16 sources) Disturbance in sleep behavior; Translations: [Sleep disturbance] 01-04-2023 Episodic Residual codes; unclassified (3 sources) Body mass index 20-24 - normal; Translations: [Body mass index (BMI) 24.0-24.9, adult] 09-28-2024 Episodic Respiratory failure; insufficiency; arrest (adult) (20 sources) Respiratory failure; insufficiency; arrest (adult) Spondylosis; intervertebral disc disorders; other back problems (20 sources) Degeneration of lumbar intervertebral disc; Translations: [Other intervertebral disc degeneration, lumbar region] Chronic Spondylosis; intervertebral disc disorders; other back problems (20 sources) Low back pain; Translations: [Low back pain] 09-22-2022 Episodic Comment on above: xrayx2 weeks, no tiago ro deficits Unclassified (1 source) Bilateral primary osteoarth of first carpometacarp joints / M18.0(ICD-10) Onset: Unclassified (1 source) Other specified abnormal findings of blood chemistry / R79.89(ICD-10) Onset: Unclassified (1 source) Carpal tunnel syndrome, right upper limb / G56.01(ICD-10) Onset: Unclassified (1 source) Carpal tunnel syndrome, left upper limb / G56.02(ICD-10) Onset: Unclassified (20 sources) Encounter for colonoscopy due to history of colonic polyp Unclassified (20 sources) Snores Unclassified (20 sources) Routine health maintenance Unclassified (20 sources) Burning tongue Unclassified (20 sources) Unclassified (20 sources) Current non-smoker ; Translations: [Current nonsmoker (Renamed from Current non-smoker)] 09-12-2018 Unclassified (20 sources) Colon polyps Unclassified (20 sources) Postmenopausal (Renamed from Postmenopausal status) Unclassified (20 sources) Encounter for screening mammogram for breast cancer (Renamed from Encounter for screening mammogram for malignant neoplasm of breast); Translations: [Patient encounter status] 05-08-2019 Comment on above: mamm6/18 Unclassified (20 sources) Tinea Unclassified (20 sources) GERRY on CPAP Unclassified (20 sources) BMI 29.0-29.9,adult Unclassified (20 sources) Elevated brain natriuretic peptide (BNP) level Unclassified (20 sources) Influenza vaccination declined; Translations: [Influenza vaccination declined (Renamed from Refused influenza vaccine)] 03-13-2019 Comment on above: still considering bu t does not want at this pointstill considering but does not want at this point still considering bu t does not want at this point Unclassified (20 sources) BMI 28.0-28.9,adult Unclassified (20 sources) Medication side effect Unclassified (20 sources) Non-smoker; Translations: [Non-smoker] 03-13-2019 Unclassified (20 sources) Venous insufficiency Unclassified (20 sources) Hyperlipemia Unclassified (20 sources) BMI 27.0-27.9,adult Unclassified (20 sources) BMI 26.0-26.9,adult Unclassified (20 sources) Chronic pulmonary hypertension Unclassified (20 sources) Mild mitral insufficiency Unclassified (20 sources) Diastolic dysfunction, left ventricle Unclassified (20 sources) Hemorrhoids, unspecified hemorrhoid type Unclassified (20 sources) Cerumen impaction Unclassified (14 sources) Breast cancer screening Unclassified (11 sources) Age more than 65 years; Translations: [Over 65 years old] 11-30-2021 Urinary tract infections (20 sources) Urethritis; Translations: [Urethritis] 06-14-2020 Episodic Viral infection (11 sources) Disease caused by 2019-nCoV; Translations: [COVID-19] 11-30-2021 Episodic Past or Other Problems Problem Classification Problem Date Documented Date Episodic/Chronic Administrative/social admission (20 sources) Pneumococcal vaccination given; Translations: [Medical examinations/reports status] Onset: 11-03-2004-26-2018 Episodic Conditions associated with dizziness or vertigo (1 source) Dizziness and giddiness; Translations: [Dizziness and giddiness] Onset: 12-17-19 Episodic Congestive heart failure; nonhypertensive (2 sources) Diastolic dysfunction; Translations: [Heart disease, unspecified] Onset: 01-03-20 17 01-03-2017 Episodic Neoplasms of unspecified nature or uncertain behavior (2 sources) Neoplastic disease; Translations: [Neoplasm of unspecified behavior of unspecified site] Onset: 10-01-20 24 10-01-2024 Episodic Other circulatory disease (2 sources) Carotid bruit; Translations: [Other specified symptoms and signs involving the circulatory and respiratory systems] Onset: 09-27-20 17 09-27-2017 Episodic Other gastrointestinal disorders (16 sources) Oral phase dysphagia; Translations: [Dysphagia, oral phase] Onset: 10-28-20 24 10-28-2024 Episodic Other gastrointestinal disorders (1 source) Dysphagia, oral phase; Translations: [Dysphagia, oral phase] Onset: 10-28-20 Episodic Other inflammatory condition of skin (20 sources) Lichen planus; Translations: [Lichen planus] Onset: 09-26-2003-13-2019 Episodic Comment on above: Started clomazole 5 x day 10 dayLichen planus vs sjogren syndromeDermatologist in [place]:Dr Horowitz(01/11)Dental in [facility]:04/11/16initially nystatin and dexa rinse and spit, clobetasol propionate 0.05 , now fungal infection:Clomitrazole troches 5 times a day Other inflammatory condition of skin (1 source) Lichen planus, unspecified; Translations: [Lichen planus, unspecified] Onset: 09-26-20 24 Episodic Other lower respiratory disease (2 sources) Dyspnea; Translations: [Shortness of breath] Onset: 01-04-20 17 01-04-2017 Episodic Other skin disorders (1 source) Localized swelling, mass and lump, lower limb, bilateral; Translations: [Localized swelling, mass and lump, lower limb, bilateral] Onset: 12-10-19 25 Episodic Residual codes; unclassified (18 sources) Increased body mass index; Translations: [BMI 29.0-29.9,adult] Resolved : 01-26-20 17 04-26-2017 Episodic Residual codes; unclassified (20 sources) Needs influenza immunization; Translations: [Need for prophylactic vaccination and inoculation against influenza (Renamed from Need for immunization against influenza)] 03-13-2019 Episodic Residual codes; unclassified (1 source) Body mass index (BMI) 24.0-24.9, adult; Translations: [Body mass index (BMI) 24.0-24.9, adult] Onset: 10-01-20 24 Episodic Unclassified (20 sources) Annual Medicare Phyiscal WITHOUT abnormal findings (Renamed from Encounter for general adult medical examination without abnormal findings); Translations: [Patient encounter status] 04-26-2017 Unclassified (20 sources) Abortions/Miscarriages; Translations: [Abortions/Miscarriages] 03-13-2019 Comment on above: 1. Spontaneous abort ion. Unclassified (20 sources) [facility] 03-13-2019 Comment on above: [employer] [facility] Unclassified (20 sources) Deliveries (Parity); Translations: [Deliveries (Parity)] 03-13-2019 Comment on above: 3. Unclassified (20 sources) Dentist - Dr Tiff Cedillo 03-13-2019 Unclassified (20 sources) Dermatology 03-13-2019 Comment on above: Dr Benitez 2013 Unclassified (20 sources) Dr Dakota Doshi - Digestive Disease 03-13-2019 Comment on above: 2014- EGD w bx and p olypectomy Unclassified (20 sources) Dr French and Dr Arguelles - Eye Dr 03-13-2019 Unclassified (20 sources) ENT - Dr Da Silva 03-13-2019 Unclassified (20 sources) Jeanmarie Perez - Oral/Maxillofacial Sx 03-13-2019 Comment on above: 2012 Unclassified (20 sources) Unspecified Diagnosis 03-13-2019 Unclassified (20 sources) Pregnancies (); Translations: [Pregnancies ()] 03-13-2019 Comment on above: 4. Unclassified (20 sources) Previous PCP - Dr Sherif Bright 03-13-2019 Unclassified (20 sources) Rheum - Dr Bonilla 03-13-2019 Comment on above: 06/10/15 - GALILEA not hi gh enough for sjorgens and would need a bx of lip by ent to rule out Unclassified (20 sources) Toenail fungus Unclassified (20 sources) Osteopenia, unspecified location Unclassified (20 sources) Lichenoid drug reaction Unclassified (20 sources) Angular cheilitis with candidiasis Unclassified (20 sources) Manager Ethics 03-13-2019 Comment on above: Dr Anaya Unclassified (20 sources) Patient encounter status; Translations: [Annual Medicare Phyiscal WITHOUT abnormal findings (Renamed from Encntr for general adult medical exam w/o abnormal findings)] 05-08-2019 Comment on above: h/o polyps does scop es with dr doshi every 3ys Unclassified (20 sources) Colon cancer screening (Renamed from Encounter for screening for malignant neoplasm of colon) Unclassified (20 sources) Therapeutic drug monitoring Unclassified (14 sources) Abnormal urinalysis Unclassified (14 sources) Cystocele with prolapse Unclassified (4 sources) Exposure to COVID-19 virus Unclassified (1 source) Screening mammogram, encounter for Urinary tract infections (13 sources) Urinary tract infections Viral infection (3 sources) Disease caused by 2019-nCoV Results Test Name Value Interpretation Reference Range Facility [facility] 06-25-2025 ERYTHROPOIETIN 6.1 mIU/mL Normal 2.6-18.5 [facility] Comment on above: Result Comment: [employer] DxI 800 Immunoassay System Values obtained with different assay methods or kits cannot be used interchangeably. Results cannot be interpreted as absolute evidence of the presence or absence of malignant disease. Performed at: - [facility] [id number] Escort Blind: Hema Arevalo PhD, Phone: [phone] Performed By: #### L 501.9520, L506.0200, L3100.1350, L503.0106, L100.0100 #### [facility] [address] [place], [address] CBC W/Diff, Automatedon 07-3 ACANTHOCYTE RARE Normal [facility] Comment on above: Performed By: #### L 501.9520, L506.0200, L3100.1350, L503.0106, L100.0100 #### [facility] [address] [place], [address] Anisocytosis Ql (Bld) 1+ Normal [facility] Comment on above: Performed By: #### L 501.9520, L506.0200, L3100.1350, L503.0106, L100.0100 #### [facility] [address] [place], [address] JORDON CELLS 1+ Normal [facility] Comment on above: Performed By: #### L 501.9520, L506.0200, L3100.1350, L503.0106, L100.0100 #### [facility] [address] [place], [address] PLT EST ADEQUATE Normal ADEQ [facility] Comment on above: Performed By: #### L 501.9520, L506.0200, L3100.1350, L503.0106, L100.0100 #### [facility] [address] [place], [address] POLYCHROMASIA 1+ Normal [facility] Comment on above: Performed By: #### L 501.9520, L506.0200, L3100.1350, L503.0106, L100.0100 #### [facility] [address] [place], [address] SMEAR COMMENT SCANNED Normal [facility] Comment on above: Performed By: #### L 501.9520, L506.0200, L3100.1350, L503.0106, L100.0100 #### [facility] [address] [place], [address] Folates,Serum (Folic Acid)on 06-23-2025 FOLATES,SERUM 10.40 ng/mL Normal 4.60-34.80 [facility] Comment on above: Order Comment: N Performed By: #### L 501.9520, L506.0200, L3100.1350, L503.0106, L100.0100 #### [facility] [address] [place], [address] Thyroid Stim Hormone (TSH)on 06-23-2025 TSH 2.940 uIU/mL Normal 0.300-4.20 0 [facility] Comment on above: Performed By: #### L 501.9520, L506.0200, L3100.1350, L503.0106, L100.0100 #### [facility] [address] [place], [address] Vitamin B12on 06-23-2025 Cobalamin (Vitamin B12) [Mass/Vol] 278 pg/mL Normal 180-914 [facility] Comment on above: Performed By: #### L 501.9520, L506.0200, L3100.1350, L503.0106, L100.0100 #### [facility] [address] [place], [place], [address] Inital Evaluation (1) - PTon 06-09-2025 Inital Evaluation (1) - PT [facility] Physical Therapy [address] [place] [address] / REHABILITATION SERVICES INITIAL EVALUATION MR#: [id number] Acct: [id number] Name: OMAIRA OLIVER Rep #: [id number] : 1940 85 From: Román Martell DPT Referring Dr.: Dr. Ang Finnegan MD Status: REG RCR Insurance: [facility] SELF PAY INSURANCE Patient's Visit Information Visit Information Visit Information: OMAIRA OLIVER is a 85 year old F referred to Physical Therapy by Dr. Ang Finnegan MD with a diagnosis of R and L greater trochanteric bursitis. Date of Evaluation: 06/05/25 Physical Therapist: Román Martell DPT Visit Plan Frequency: 2x /Week Duration: 6 Weeks Plan: 1) US to bilateral trochanters if needed 2) IT band and ER stretching 3) glute med/max and core strengthening 4) educate in gym exercises. May give her a HEP for aquatic exercises. Subjective Subjective: Pt. is here today for her initial evaluation with diagnosis of R and L trochanteric bursitis. Pt. reports increased pain with walking and standing. Pt. reports feeling weak in BLEs as well. Pt. reports no N/T, but does have pain down both lateral LEs to knees at times. Pt. has not done much recently due to illness, but would like to get back to gym. Pt. did have questions about pool exercises as well. She would like to do land PT at this point in time. Pain R greater trochanter: Pain Intensity (Out of 10): 2 Pain Intensity Range: 0 and 5 Objective Objective: POSTURE: Pt. has slight flexed posture, normal DONELL in stance. PALPATION: Pt. has tenderness at bilateral greater trochanters. NEURO: pt. has normal sensation and normal DTR of BLEs. ROM: Pt. has tight IT bands bilaterally. Pt. has tight hip ER bilaterally. MMT: Pt. has marked weakness in hip abductors and glutes. 4/5 bilaterally. HIp flexor 4+/5. bilat. Core poor. GAIT: Pt ambulates without AD, but has decreased step length and slight increase in lateral sway. Pt. is able to complete without LOB. STAIRS: Pt. has increased pain with ascending, reciprocal pattern noted. Descending less painful. Balance/Special Test Scores Lower Extremity Functional Score: 43 Goals Goal 1:: LTG: Pt. to be I with HEP. Goal Time Frame: 4-6 Weeks Goal 2:: LTG: Pt. to have full strength in B hips and LEs Goal Time Frame: 4-6 Weeks Goal 3:: LTG: Pt. to ambulate without AD with normal gait pattern and no pain. Goal Time Frame: 4-6 Weeks Goal 4:: LTG: Pt. to be I with both pool and gym exercises. Goal Time Frame: 4-6 Weeks Goal 5:: LTG: Pt. to reports no pain in B hips. Goal Time Frame: 4-6 Weeks Rehabilitation Potential Physical Therapy Diagnosis: Pt. has signs and symptoms consistent with R and L greater trochanteric bursitis. Pt. has marked glute weakness and increased greater trochanteric pain. Pt. would benefit from PT to address the above limitations. Rehabilitation Potential: Good Anticipated Interventions Patient/Client Instruction: Educate patient on: Condition, Plan of Care, Risk Factors and Benefits of Fitness Program For the Purpose of:: To facilitate caregiver knowledge, To improve self management, To prevent re- injury, To improve ability to perform tasks related to life management and To improve tolerance to ADL's Therapeutic Exercise to Include: Strength training, Power training, Endurance training, Postural training, Flexibilty training, Passive ROM, Active ROM and Dynamic Lumbar Stabilization For the Purpose of:: To decrease pain, To decrease swelling/inflammation, To increase ROM, To improve nutrient delivery to tissue, To increase oxygenation perfusion, To improve muscle performance and motor function, To improve ability to perform ADL's, To increase tolerance to activity/condition/positi on and To improve performance and independence with ADL's Manual Therapy Techniques to Include: Passive ROM and Soft tissue mobilization For the Purpose of:: To decrease pain, To decrease swelling/inflammation and To increase ROM Cryotherapy (ice pack, ice massage): Yes Ultrasound (thermal/non thermal): Yes For the Purpose of:: To decrease pain, To decrease swelling/inflammation and To increase ROM Text: Thank you for the opportunity to evaluate your patient. For Medicare and Medicare HMO plans, please review the plan of care and approve it. It will need to be FAXED BACK to us at [phone] for Medicare purposes. For Medicare only, by signing this I certify the plan of care. Please let me know if there are questions or concerns regarding this plan of care. Physician Signature: Date: _ 06/09/25 0849 CC: Dr. Юлия Conti MD; Dr. Ang Finnegan MD CLS Signed Normal [facility] [facility] Absolute lymphocyte countOrd ered By: Dakota Doshi on 05-26-2025 Lymphocytes Auto (Unsp spec) [#/Vol] 0.64 10*3/uL Low 0.83-4.51 [facility] Absolute neutrophil countOrd ered By: Dakota Doshi on 05-26-2025 Neutrophils (Bld) [#/Vol] 6.2 10*3/uL 2.0-7.7 [facility] Automated lymphocyte count a s percentage of total leukocytesOrdered By: Dakota Doshi on 05-26-2025 Lymphocytes/100 WBC Auto (Unsp spec) 8.5 % Low 19-41 [facility] Basophil percentageOrdered B y: Dakota Doshi on 05-26-2025 Basophils/100 WBC (Bld) 0.3 % 0-1 [facility] CBC W/Diff, Automatedon Absolute Lymph 0.64 X10 3/uL Low 0.83-4.51 [facility] Comment on above: Performed By: #### L 503.6550, L100.0100, L503.6030 ####[facility] [address] [place], [address] Absolute Neut 6.2 X10 3/uL Normal 2.0-7.7 [facility] Comment on above: Performed By: #### L 503.6550, L100.0100, L503.6030 ####[facility] [address] [place], [address] Basophils/100 WBC (Bld) 0.3 % Normal 0-1 [facility] Comment on above: Performed By: #### L 503.6550, L100.0100, L503.6030 ####[facility] [address] [place], [address] Eosinophils/100 WBC (Bld) 0.1 % Normal 0-5 [facility] Comment on above: Performed By: #### L 503.6550, L100.0100, L503.6030 ####[facility] [address] [place], [address] Erythrocyte distribution width (RBC) [Ratio] 13.2 % Normal 11.6-14.6 [facility] Comment on above: Performed By: #### L 503.6550, L100.0100, L503.6030 ####[facility] [address] [place], [address] Hematocrit (Bld) [Volume fraction] 33.3 % Low 37-47 [facility] Comment on above: Performed By: #### L 503.6550, L100.0100, L503.6030 ####[facility] [address] [place], [address] Hemoglobin (Bld) [Mass/Vol] 10.9 g/dL Low 12.0-15.0 [facility] Comment on above: Performed By: #### L 503.6550, L100.0100, L503.6030 ####[facility] [address] [place], [address] IG% 1.500 High 0.0-0.9 [facility] Comment on above: Result Comment: IG% - Immature Granulocytes (promyelocytes, myelocytes and metamyelocytes) > 1% indicates that a LEFT SHIFT is Present. Performed By: #### L 503.6550, L100.0100, L503.6030 ####[facility] [address] [place], [address] Lymphocytes/100 WBC (Bld) 8.5 % Low 19-41 [facility] Comment on above: Performed By: #### L 503.6550, L100.0100, L503.6030 ####[facility] [address] [place], [address] MCH (RBC) [Entitic mass] 30.8 pg Normal 27.0-32.0 [facility] Comment on above: Performed By: #### L 503.6550, L100.0100, L503.6030 ####[facility] [address] [place], [address] MCHC (RBC) [Mass/Vol] 32.7 g/dL Normal 32-36 [facility] Comment on above: Performed By: #### L 503.6550, L100.0100, L503.6030 ####[facility] [address] [place], [address] MCV (RBC) [Entitic vol] 94.1 fL Normal 81-99 [facility] Comment on above: Performed By: #### L 503.6550, L100.0100, L503.6030 ####[facility] [address] [place], [address] Monocytes/100 WBC (Bld) 7.5 % Normal 0-10 [facility] Comment on above: Performed By: #### L 503.6550, L100.0100, L503.6030 ####[facility] [address] [place], [address] Neutrophils/100 WBC (Bld) 82.1 % High 47-70 [facility] Comment on above: Performed By: #### L 503.6550, L100.0100, L503.6030 ####[facility] [address] [place], [address] Nucleated RBC (Bld) [#/Vol] 0 10*3/uL Normal 0-5 [facility] Comment on above: Performed By: #### L 503.6550, L100.0100, L503.6030 ####[facility] [address] [place], [address] Platelet mean volume (Bld) [Entitic vol] 10.2 fL Normal 6.2-12.0 [facility] Comment on above: Performed By: #### L 503.6550, L100.0100, L503.6030 ####[facility] [address] [place], [address] Platelets (Bld) [#/Vol] 268 10*3/uL Normal 150-450 [facility] Comment on above: Performed By: #### L 503.6550, L100.0100, L503.6030 ####[facility] [address] [place], [address] RBC (Bld) [#/Vol] 3.54 10*6/uL Low 4.2-5.4 [facility] Comment on above: Performed By: #### L 503.6550, L100.0100, L503.6030 ####[facility] [address] [place], [address] RDW SD 45.3 fl High 35.1-43.9 [facility] Comment on above: Performed By: #### L 503.6550, L100.0100, L503.6030 ####[facility] [address] [place], [address] WBC (Bld) [#/Vol] 7.5 10*3/uL Normal 4.4-11.0 [facility] Comment on above: Performed By: #### L 503.6550, L100.0100, L503.6030 ####[facility] [address] [place], [address] Eosinophil percentageOrdered By: Dakota Doshi on 05-26-2025 Eosinophils/100 WBC (Bld) 0.1 % 0-5 [facility] Erythrocyte distribution wid th ratioOrdered By: Dakota Doshi on 05-26-2025 Erythrocyte distribution width (RBC) [Ratio] 13.2 % 11.6-14.6 [facility] Erythrocyte distribution wid th standard deviationOrdered By: Dakota Doshi on 05-26-2025 Erythrocyte distribution width (RBC) [Ratio] 45.3 fl High 35.1-43.9 [facility] Ferritinon 05-26-2025 Ferritin [Mass/Vol] 82 ng/mL Normal 22-378 [facility] Comment on above: Performed By: #### L 503.6550, L100.0100, L503.6030 ####[facility] [address] [place], [address] Hematocrit Auto (Bld) [Volum e fraction]Ordered By: Dakota Doshi on 05-26-2025 Hematocrit (Bld) [Volume fraction] 33.3 % Low 37-47 [facility] Hemoglobin measurementOrdere d By: Dakota Doshi on 05-26-2025 Hemoglobin (Bld) [Mass/Vol] 10.9 g/dL Low 12.0-15.0 [facility] Immature granulocytes/100 WB C Auto (Bld)Ordered By: Dakota Doshi on 05-26-2025 Immature granulocytes/100 WBC (Bld) 1.500 % High 0.0-0.9 [facility] Comment on above: IG% - Immature Granu locytes (promyelocytes, myelocytes and metamyelocytes) > 1% indicates that a LEFT SHIFT is Present. Iron measurement (mass/mass) Ordered By: Dakota Doshi on 05-26-2025 Iron (Unsp spec) [Mass/Mass] 91 ug/dL 50-170 [facility] Iron+Iron Binding Capacityon 05-26-2025 Iron [Mass/Vol] 91 ug/dL Normal 50-170 [facility] Comment on above: Performed By: #### L 503.6550, L100.0100, L503.6030 ####[facility] [address], [address] IRON SATURATION 29.0 Normal 13-59 [facility] Comment on above: Performed By: #### L 503.6550, L100.0100, L503.6030 ####[facility] [address] [place], [address] TIBC 309 ug/dL Normal 250-450 [facility] Comment on above: Performed By: #### L 503.6550, L100.0100, L503.6030 ####[facility] [address] [place], [address] UIBC 218 ug/dL Low 228-428 [facility] Comment on above: Performed By: #### L 503.6550, L100.0100, L503.6030 ####[facility] [address] [place], [address] MCV (mean corpuscular volume ) determinationOrdered By: Dakota Doshi on 05-26-2025 MCV (RBC) [Entitic vol] 94.1 fL 81-99 [facility] Mean corpuscular hemoglobin (MCH) determinationOrdered By: Dakota Doshi on 05-26-2025 MCH (RBC) [Entitic mass] 30.8 pg 27.0-32.0 [facility] Mean corpuscular hemoglobin concentration (MCHC) determinationOrdered By: Dakota Doshi on 05-26-2025 MCHC (RBC) [Mass/Vol] 32.7 g/dL 32-36 [facility] Mean platelet volume determi nationOrdered By: Dakota Doshi on 05-26-2025 Platelet mean volume (Bld) [Entitic vol] 10.2 fL 6.2-12.0 [facility] Monocyte percentageOrdered B y: Dakota Doshi on 05-26-2025 Monocytes/100 WBC (Bld) 7.5 % 0-10 [facility] Neutrophil percentageOrdered By: Dakota Doshi on 05-26-2025 Neutrophils/100 WBC (Bld) 82.1 % High 47-70 [facility] No Panel InformationOrdered By: Dakota Doshi on 05-26-2025 Unsaturated Iron Binding Capacity 218 ug/dL Low 228-428 [place] [facility] Nucleated red blood cell per centageOrdered By: Dakota Doshi on 05-26-2025 Nucleated RBC/100 WBC (Bld) [Ratio] 0 % 0-5 [facility] Platelet countOrdered By: Orville Doshi on 05-26-2025 Platelets (Bld) [#/Vol] 268 10*3/uL 150-450 [facility] RBC Auto (Bld) [#/Vol]Ordere d By: Dakota Doshi on 05-26-2025 RBC (Bld) [#/Vol] 3.54 10*6/uL Low 4.2-5.4 [facility] Serum or plasma ferritin lizzette surement (mass/volume)Ordered By: Dakota Doshi on 05-26-2025 Ferritin [Mass/Vol] 82 ng/mL 22-378 [facility] Serum or plasma iron saturat ion measurement (mass fraction)Ordered By: Dakota Doshi on 05-26-2025 Iron saturation [Mass fraction] 29.0 % 13-59 [facility] White blood cell (WBC) count Ordered By: Dakota Doshi on 05-26-2025 WBC (Bld) [#/Vol] 7.5 10*3/uL 4.4-11.0 [facility] Progress Noteson 05-22-2025 [employer] Manager Authentication Interface Message Text Follow Patient was identified by name and date of . Pharmacy updated Vital signs taken Patient in exam room ready for MD. Princess Ceron.JOSE Normal [facility] [employer] Manager Authentication Interface Message Text OTOLARYNGOLOGY - HEAD AND NECK SURGERY CLINIC NOTE CHIEF COMPLAINT: No chief complaint on file. 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 Fraser). Now status post left partial glossectomy with [...] and neck standpoint. She does report some vonp-ni-caoeakjt pain and soreness from the prior biopsy [...] January. Recently s/p biopsy with Dr. Arguelles (family resource management specialist) c/w with invasive SCCa. She reports hx [...] drink alcohol and does not use drugs. Medications/Allergies/Imm unizations: Her current medication(s) include: @CMEDLISTP@ Allergies: Amlodipine [...] at 1601 ED 10/13/24 Final Diagnosis A. Tongue, Left partial glossectomy MINUTE FOCUS OF RESIDUAL WELL DIFFERENTIATED MICROINVASIVE SQUAMOUS CELL CARCINOMA (At most 2 mm in depth and span of 2 mm) in a background of residual mod (more content not included)... Normal [email or web address] Celiac AB,Comprehensiveon ANTIGLIADIN IGA 5 units Normal 0-19 [facility] Comment on above: Result Comment: Nega tive 0 - 19 Weak Positive 20 - 30 Moderate to Strong Positive >30 Performed By: #### L 3410.2350, L501.2400, L503.6550, L501.9520, L100.0100, L503.6030, L500.4050, L503.0106, L506.0200, L101.9900 ####[facility] [address] [place], [address] ANTIGLIADIN IGG 1 units Normal 0-19 [facility] Comment on above: Result Comment: Nega tive 0 - 19 Weak Positive 20 - 30 Moderate to Strong Positive >30 Performed By: #### L 3410.2350, L501.2400, L503.6550, L501.9520, L100.0100, L503.6030, L500.4050, L503.0106, L506.0200, L101.9900 ####[facility] [address] [place], [address] ENDOMYSIAL IGA Negative Normal Negative [facility] Comment on above: Performed By: #### L 3410.2350, L501.2400, L503.6550, L501.9520, L100.0100, L503.6030, L500.4050, L503.0106, L506.0200, L101.9900 ####[facility] [address], [address] IMMUNOGLOB A QN 254 mg/dL Normal 64-422 [facility] Comment on above: Result Comment: Perf ormed at: [facility] [address] [id number] Esc[employer] Blind: Hema Arevalo PhD, Phone: [phone] Performed By: #### L 3410.2350, L501.2400, L503.6550, L501.9520, L100.0100, L503.6030, L500.4050, L503.0106, L506.0200, L101.9900 ####[facility] [address] [place], [address] tTG IGA <2 Normal 0-3 [facility] Comment on above: Result Comment: Nega tive 0 - 3 Weak Positive 4 - 10 Positive >10 Tissue Transglutaminase (tTG) has been identified as the endomysial antigen. Studies have demonstr- ated that endomysial IgA antibodies have over 99% specificity for gluten sensitive enteropathy. Performed By: #### L 3410.2350, L501.2400, L503.6550, L501.9520, L100.0100, L503.6030, L500.4050, L503.0106, L506.0200, L101.9900 ####[facility] [address] [place], [place], [id number] tTG IGG <2 Normal 0-5 [facility] Comment on above: Result Comment: Nega tive 0 - 5 Weak Positive 6 - 9 Positive >9 Performed By: #### L 3410.2350, L501.2400, L503.6550, L501.9520, L100.0100, L503.6030, L500.4050, L503.0106, L506.0200, L101.9900 ####[facility] [address] [place], [address] Absolute lymphocyte counton 03-24-2025 Lymphocytes Auto (Unsp spec) [#/Vol] 0.58 10*3/uL Low 0.83-4.51 [facility] Absolute neutrophil counton 03-24-2025 Neutrophils (Bld) [#/Vol] 6.8 10*3/uL 2.0-7.7 [facility] Amylaseon 03-24-2025 REVA 61 U/L Normal 28-100 [facility] Comment on above: Performed By: #### L 3410.2350, L501.2400, L503.6550, L501.9520, L100.0100, L503.6030, L500.4050, L503.0106, L506.0200, L101.9900 ####[facility] [address] [place], [address] Anion gap in Serum or Plasma on 03-24-2025 Anion gap [Moles/Vol] 12 mmol/L 5-15 [facility] Automated lymphocyte count a s percentage of total leukocyteson 03-24-2025 Lymphocytes/100 WBC Auto (Unsp spec) 7.3 % Low 19-41 [facility] BUN/creatinine ratioon 03-24 Urea nitrogen/Creatinine [Mass ratio] 21.1 mg/mg High 10-20 [facility] Basophil percentageon 2024 Basophils/100 WBC (Bld) 0.1 % 0-1 [facility] Bilirubin, totalon Bilirubin [Mass/Vol] 0.43 mg/dL 0.00-1.30 [facility] CBC W/Diff, Automatedon 02-25 Absolute Lymph 0.58 X10 3/uL Low 0.83-4.51 [facility] Comment on above: Performed By: #### L 3410.2350, L501.2400, L503.6550, L501.9520, L100.0100, L503.6030, L500.4050, L503.0106, L506.0200, L101.9900 ####[facility] [address] [place], [address] Absolute Neut 6.8 X10 3/uL Normal 2.0-7.7 [facility] Comment on above: Performed By: #### L 3410.2350, L501.2400, L503.6550, L501.9520, L100.0100, L503.6030, L500.4050, L503.0106, L506.0200, L101.9900 ####[facility] [address] [place], [address] Basophils/100 WBC (Bld) 0.1 % Normal 0-1 [facility] Comment on above: Performed By: #### L 3410.2350, L501.2400, L503.6550, L501.9520, L100.0100, L503.6030, L500.4050, L503.0106, L506.0200, L101.9900 ####[facility] [address] [place], [address] Eosinophils/100 WBC (Bld) 0.1 % Normal 0-5 [facility] Comment on above: Performed By: #### L 3410.2350, L501.2400, L503.6550, L501.9520, L100.0100, L503.6030, L500.4050, L503.0106, L506.0200, L101.9900 ####[facility] [address] [place], [address] Erythrocyte distribution width (RBC) [Ratio] 13.7 % Normal 11.6-14.6 [facility] Comment on above: Performed By: #### L 3410.2350, L501.2400, L503.6550, L501.9520, L100.0100, L503.6030, L500.4050, L503.0106, L506.0200, L101.9900 ####[facility] [address] [place], [address]) Hematocrit (Bld) [Volume fraction] 32.5 % Low 37-47 [facility] Comment on above: Performed By: #### L 3410.2350, L501.2400, L503.6550, L501.9520, L100.0100, L503.6030, L500.4050, L503.0106, L506.0200, L101.9900 ####[facility] [address] [place], [address] Hemoglobin (Bld) [Mass/Vol] 10.9 g/dL Low 12.0-15.0 [facility] Comment on above: Performed By: #### L 3410.2350, L501.2400, L503.6550, L501.9520, L100.0100, L503.6030, L500.4050, L503.0106, L506.0200, L101.9900 ####[facility] [address], [address] IG% 0.900 Normal 0.0-0.9 [facility] Comment on above: Result Comment: IG% - Immature Granulocytes (promyelocytes, myelocytes and metamyelocytes) > 1% indicates that a LEFT SHIFT is Present. Performed By: #### L 3410.2350, L501.2400, L503.6550, L501.9520, L100.0100, L503.6030, L500.4050, L503.0106, L506.0200, L101.9900 ####[facility] [address], [address] Lymphocytes/100 WBC (Bld) 7.3 % Low 19-41 [facility] Comment on above: Performed By: #### L 3410.2350, L501.2400, L503.6550, L501.9520, L100.0100, L503.6030, L500.4050, L503.0106, L506.0200, L101.9900 ####[facility] [address] [facility] [place], [address] MCH (RBC) [Entitic mass] 31.1 pg Normal 27.0-32.0 [facility] Comment on above: Performed By: #### L 3410.2350, L501.2400, L503.6550, L501.9520, L100.0100, L503.6030, L500.4050, L503.0106, L506.0200, L101.9900 ####[facility] [address] [place], [address] MCHC (RBC) [Mass/Vol] 33.5 g/dL Normal 32-36 [facility] Comment on above: Performed By: #### L 3410.2350, L501.2400, L503.6550, L501.9520, L100.0100, L503.6030, L500.4050, L503.0106, L506.0200, L101.9900 ####[facility] [address], [address] MCV (RBC) [Entitic vol] 92.6 fL Normal 81-99 [facility] Comment on above: Performed By: #### L 3410.2350, L501.2400, L503.6550, L501.9520, L100.0100, L503.6030, L500.4050, L503.0106, L506.0200, L101.9900 ####[facility] [address] [place], [address] Monocytes/100 WBC (Bld) 6.5 % Normal 0-10 [facility] Comment on above: Performed By: #### L 3410.2350, L501.2400, L503.6550, L501.9520, L100.0100, L503.6030, L500.4050, L503.0106, L506.0200, L101.9900 ####[facility] [address], [address] Neutrophils/100 WBC (Bld) 85.1 % High 47-70 [facility] Comment on above: Performed By: #### L 3410.2350, L501.2400, L503.6550, L501.9520, L100.0100, L503.6030, L500.4050, L503.0106, L506.0200, L101.9900 ####[facility] [address] [place], [address] Nucleated RBC (Bld) [#/Vol] 0 10*3/uL Normal 0-5 [facility] Comment on above: Performed By: #### L 3410.2350, L501.2400, L503.6550, L501.9520, L100.0100, L503.6030, L500.4050, L503.0106, L506.0200, L101.9900 ####[facility] [address], [address] Platelet mean volume (Bld) [Entitic vol] 9.8 fL Normal 6.2-12.0 [facility] Comment on above: Performed By: #### L 3410.2350, L501.2400, L503.6550, L501.9520, L100.0100, L503.6030, L500.4050, L503.0106, L506.0200, L101.9900 ####[facility] [address] [place], [address] Platelets (Bld) [#/Vol] 317 10*3/uL Normal 150-450 [facility] Comment on above: Performed By: #### L 3410.2350, L501.2400, L503.6550, L501.9520, L100.0100, L503.6030, L500.4050, L503.0106, L506.0200, L101.9900 ####[facility] [address], [address] RBC (Bld) [#/Vol] 3.51 10*6/uL Low 4.2-5.4 [facility] Comment on above: Performed By: #### L 3410.2350, L501.2400, L503.6550, L501.9520, L100.0100, L503.6030, L500.4050, L503.0106, L506.0200, L101.9900 ####[facility] [address] [place], [address] RDW SD 46.6 fl High 35.1-43.9 [facility] Comment on above: Performed By: #### L 3410.2350, L501.2400, L503.6550, L501.9520, L100.0100, L503.6030, L500.4050, L503.0106, L506.0200, L101.9900 ####[facility] [address] [place], [place], [phone] WBC (Bld) [#/Vol] 8.0 10*3/uL Normal 4.4-11.0 [facility] Comment on above: Performed By: #### L 3410.2350, L501.2400, L503.6550, L501.9520, L100.0100, L503.6030, L500.4050, L503.0106, L506.0200, L101.9900 ####[facility] [address] [place], [place], [phone] Carbon dioxide, total [Moles /volume] in Central venous bloodon 03-24-2025 CO2 [Moles/Vol] 24.3 mmol/L 21.0-32.0 [facility] Chloride assayon 03-24-2025 Chloride [Moles/Vol] 100 mmol/L 98-108 [facility] Comprehensive Metabolic Prof ilon 03-24-2025 Albumin [Mass/Vol] 4.2 g/dL Normal 3.4-4.8 [facility] Comment on above: Performed By: #### L 3410.2350, L501.2400, L503.6550, L501.9520, L100.0100, L503.6030, L500.4050, L503.0106, L506.0200, L101.9900 ####[facility] [address] [place], [place], [phone] Albumin/Globulin [Mass ratio] 1.5 {ratio} Normal 0.9-2.4 [facility] Comment on above: Performed By: #### L 3410.2350, L501.2400, L503.6550, L501.9520, L100.0100, L503.6030, L500.4050, L503.0106, L506.0200, L101.9900 ####[facility] [address] [place], [address] ALK PHOS 61 U/L Normal 35-104 [facility] Comment on above: Performed By: #### L 3410.2350, L501.2400, L503.6550, L501.9520, L100.0100, L503.6030, L500.4050, L503.0106, L506.0200, L101.9900 ####[facility] [address] [place], [address] ALT [Catalytic activity/Vol] 19 U/L Normal <=34 [facility] Comment on above: Performed By: #### L 3410.2350, L501.2400, L503.6550, L501.9520, L100.0100, L503.6030, L500.4050, L503.0106, L506.0200, L101.9900 ####[facility] [address] [place], [address] AST [Catalytic activity/Vol] 23 U/L Normal <=31 [facility] Comment on above: Performed By: #### L 3410.2350, L501.2400, L503.6550, L501.9520, L100.0100, L503.6030, L500.4050, L503.0106, L506.0200, L101.9900 ####[facility] [address] [place], [address] Bilirubin [Mass/Vol] 0.43 mg/dL Normal 0.00-1.30 [facility] Comment on above: Performed By: #### L 3410.2350, L501.2400, L503.6550, L501.9520, L100.0100, L503.6030, L500.4050, L503.0106, L506.0200, L101.9900 ####[facility] [address] [place], [address] BUN/CRE 21.1 RATIO High 10-20 [facility] Comment on above: Performed By: #### L 3410.2350, L501.2400, L503.6550, L501.9520, L100.0100, L503.6030, L500.4050, L503.0106, L506.0200, L101.9900 ####[facility] [address] [place], [address] Calcium [Mass/Vol] 9.7 mg/dL Normal 7.6-11.0 [facility] Comment on above: Performed By: #### L 3410.2350, L501.2400, L503.6550, L501.9520, L100.0100, L503.6030, L500.4050, L503.0106, L506.0200, L101.9900 ####[facility] [address] [place], [address] Chloride [Moles/Vol] 100 mmol/L Normal 98-108 [facility] Comment on above: Performed By: #### L 3410.2350, L501.2400, L503.6550, L501.9520, L100.0100, L503.6030, L500.4050, L503.0106, L506.0200, L101.9900 ####[facility] [address] [place], [address] CO2 [Moles/Vol] 24.3 mmol/L Normal 21.0-32.0 [facility] Comment on above: Performed By: #### L 3410.2350, L501.2400, L503.6550, L501.9520, L100.0100, L503.6030, L500.4050, L503.0106, L506.0200, L101.9900 ####[facility] [address] [place], [place], [phone] Creatinine [Mass/Vol] 0.87 mg/dL Normal 0.70-1.20 [facility] Comment on above: Performed By: #### L 3410.2350, L501.2400, L503.6550, L501.9520, L100.0100, L503.6030, L500.4050, L503.0106, L506.0200, L101.9900 ####[facility] [address] [place], [place], [phone] GAP 12 Normal 5-15 [facility] Comment on above: Performed By: #### L 3410.2350, L501.2400, L503.6550, L501.9520, L100.0100, L503.6030, L500.4050, L503.0106, L506.0200, L101.9900 ####[facility] [address] [place], [place], [phone] GFR/1.73 sq M.predicted among non-blacks MDRD (S/P/Bld) [Vol rate/Area] 67 mL/min/{1.73_m2} Normal >60 [facility] Comment on above: Result Comment: mL/m in/1.73m2 CKD-EPI Creatinine Equation (2020) Performed By: #### L 3410.2350, L501.2400, L503.6550, L501.9520, L100.0100, L503.6030, L500.4050, L503.0106, L506.0200, L101.9900 ####[facility] [address] [place], [place], [phone] Globulin (S) [Mass/Vol] 2.8 g/dL Normal 2.2-4.2 [facility] Comment on above: Performed By: #### L 3410.2350, L501.2400, L503.6550, L501.9520, L100.0100, L503.6030, L500.4050, L503.0106, L506.0200, L101.9900 ####[facility] [address] [place], [address] Glucose [Mass/Vol] 105 mg/dL High 70-99 [facility] Comment on above: Performed By: #### L 3410.2350, L501.2400, L503.6550, L501.9520, L100.0100, L503.6030, L500.4050, L503.0106, L506.0200, L101.9900 ####[facility] [address] [place], [address] Potassium [Moles/Vol] 3.8 mmol/L Normal 3.3-5.1 [facility] Comment on above: Performed By: #### L 3410.2350, L501.2400, L503.6550, L501.9520, L100.0100, L503.6030, L500.4050, L503.0106, L506.0200, L101.9900 ####[facility] [address] [place], [address] Sodium [Moles/Vol] 137 mmol/L Normal 133-145 [facility] Comment on above: Performed By: #### L 3410.2350, L501.2400, L503.6550, L501.9520, L100.0100, L503.6030, L500.4050, L503.0106, L506.0200, L101.9900 ####[facility] [address] [place], [address] T PROT 7.0 g/dL Normal 5.9-8.4 [facility] Comment on above: Performed By: #### L 3410.2350, L501.2400, L503.6550, L501.9520, L100.0100, L503.6030, L500.4050, L503.0106, L506.0200, L101.9900 ####[facility] [address] [place], [place], [phone] Urea nitrogen [Mass/Vol] 18 mg/dL Normal 4-19 [facility] Comment on above: Performed By: #### L 3410.2350, L501.2400, L503.6550, L501.9520, L100.0100, L503.6030, L500.4050, L503.0106, L506.0200, L101.9900 ####[facility] [address] [place], [address] Eosinophil percentageon 02-25 Eosinophils/100 WBC (Bld) 0.1 % 0-5 [facility] Erythrocyte Sed Rateon 03-24 SED RATE 5 mm/hr Normal 0-30 [facility] Comment on above: Performed By: #### L 3410.2350, L501.2400, L503.6550, L501.9520, L100.0100, L503.6030, L500.4050, L503.0106, L506.0200, L101.9900 ####[facility] [address] [place], [place], [phone] Erythrocyte distribution wid th ratioon 03-24-2025 Erythrocyte distribution width (RBC) [Ratio] 13.7 % 11.6-14.6 [facility] Erythrocyte distribution wid th standard deviationon 03-24-2025 Erythrocyte distribution width (RBC) [Ratio] 46.6 fl High 35.1-43.9 [facility] Erythrocyte sedimentation ra darnell 03-24-2025 ESR (Bld) [Velocity] 5 mm/h 0-30 [facility] Ferritinon 03-24-2025 Ferritin [Mass/Vol] 94 ng/mL Normal 22-378 [facility] Comment on above: Performed By: #### L 3410.2350, L501.2400, L503.6550, L501.9520, L100.0100, L503.6030, L500.4050, L503.0106, L506.0200, L101.9900 ####[facility] [address] [place], [place], [phone] Folate [Moles/volume] in Ser um or Plasmaon 03-24-2025 Folate [Moles/Vol] 11.20 ng/mL 4.60-34.80 [facility] Folates,Serum (Folic Acid)on 03-24-2025 FOLATES,SERUM 11.20 ng/mL Normal 4.60-34.80 [facility] Comment on above: Order Comment: N Performed By: #### L 3410.2350, L501.2400, L503.6550, L501.9520, L100.0100, L503.6030, L500.4050, L503.0106, L506.0200, L101.9900 ####[facility] [address] [place], [place], [phone] Glomerular filtration rate ( GFR) estimation/1.73 sq m using serum, plasma, or whole bon 03-24-2025 GFR/1.73 sq M.predicted among non-blacks MDRD (S/P/Bld) [Vol rate/Area] 67 mL/min/{1.73_m2} >60 [facility] Comment on above: mL/min/1.73m2 CKD-EP I Creatinine Equation (2020) Hematocrit Auto (Bld) [Volum e fraction]on 03-24-2025 Hematocrit (Bld) [Volume fraction] 32.5 % Low 37-47 [facility] Hemoglobin measurementon Hemoglobin (Bld) [Mass/Vol] 10.9 g/dL Low 12.0-15.0 [facility] Immature granulocytes/100 WB C Auto (Bld)on 03-24-2025 Immature granulocytes/100 WBC (Bld) 0.900 % 0.0-0.9 [facility] Comment on above: IG% - Immature Granu locytes (promyelocytes, myelocytes and metamyelocytes) > 1% indicates that a LEFT SHIFT is Present. Iron measurement (mass/mass) on 03-24-2025 Iron (Unsp spec) [Mass/Mass] 78 ug/dL 50-170 [facility] Iron+Iron Binding Capacityon 03-24-2025 Iron [Mass/Vol] 78 ug/dL Normal 50-170 [facility] Comment on above: Performed By: #### L 3410.2350, L501.2400, L503.6550, L501.9520, L100.0100, L503.6030, L500.4050, L503.0106, L506.0200, L101.9900 ####[facility] [address] [place], [place], [phone] IRON SATURATION 26.0 Normal 13-59 [facility] Comment on above: Performed By: #### L 3410.2350, L501.2400, L503.6550, L501.9520, L100.0100, L503.6030, L500.4050, L503.0106, L506.0200, L101.9900 ####[facility] [address] [place], [place], [phone] TIBC 299 ug/dL Normal 250-450 [facility] Comment on above: Performed By: #### L 3410.2350, L501.2400, L503.6550, L501.9520, L100.0100, L503.6030, L500.4050, L503.0106, L506.0200, L101.9900 ####[facility] [address] [place], [place], [phone] UIBC 221 ug/dL Low 228-428 [facility] Comment on above: Performed By: #### L 3410.2350, L501.2400, L503.6550, L501.9520, L100.0100, L503.6030, L500.4050, L503.0106, L506.0200, L101.9900 ####[facility] [address] [place], [place], [phone] Laboratory - Chemistry and C hemistry - challengeon 03-24-2025 AST [Catalytic activity/Vol] 23 U/L <32 [facility] MCV (mean corpuscular volume ) determinationon 03-24-2025 MCV (RBC) [Entitic vol] 92.6 fL 81-99 [facility] Mean corpuscular hemoglobin (MCH) determinationon 03-24-2025 MCH (RBC) [Entitic mass] 31.1 pg 27.0-32.0 [facility] Mean corpuscular hemoglobin concentration (MCHC) determinationon 03-24-2025 MCHC (RBC) [Mass/Vol] 33.5 g/dL 32-36 [facility] Mean platelet volume determi nationon 03-24-2025 Platelet mean volume (Bld) [Entitic vol] 9.8 fL 6.2-12.0 [facility] Monocyte percentageon 2024 Monocytes/100 WBC (Bld) 6.5 % 0-10 [facility] Neutrophil percentageon 02-25 Neutrophils/100 WBC (Bld) 85.1 % High 47-70 [facility] No Panel Informationon 03-24 Tissue Transglutaminase IgG Ab <2 U/mL 0-5 [facility] Comment on above: Negative 0 - 5 Weak Positive 6 - 9 Positive >9 Unsaturated Iron Binding Capacity 221 ug/dL Low 228-428 [facility] Nucleated red blood cell per centageon 03-24-2025 Nucleated RBC/100 WBC (Bld) [Ratio] 0 % 0-5 [facility] Platelet counton 03-24-2025 Platelets (Bld) [#/Vol] 317 10*3/uL 150-450 [facility] Potassium measurement (mass/ volume)on 03-24-2025 Potassium (Unsp spec) [Mass/Vol] 3.8 mmol/L 3.3-5.1 [facility] RBC Auto (Bld) [#/Vol]on RBC (Bld) [#/Vol] 3.51 10*6/uL Low 4.2-5.4 [facility] Serum creatinine measurement (mass/volume)on 03-24-2025 Creatinine [Mass/Vol] 0.87 mg/dL 0.70-1.20 [facility] Serum globulin measurementon 03-24-2025 Globulin (S) [Mass/Vol] 2.8 g/dL 2.2-4.2 [facility] Serum glucose measurement (m ass/volume)on 03-24-2025 Glucose [Mass/Vol] 105 mg/dL High 70-99 [facility] Serum or plasma alanine moeller otransferase (ALT) measurementon 03-24-2025 ALT [Catalytic activity/Vol] 19 U/L <35 [facility] Serum or plasma albumin pieter urement (mass/volume)on 03-24-2025 Albumin [Mass/Vol] 4.2 g/dL 3.4-4.8 [facility] Serum or plasma albumin/glob ulin mass ratioon 03-24-2025 Albumin/Globulin [Mass ratio] 1.5 {ratio} 0.9-2.4 [facility] Serum or plasma alkaline nury sphatase measurementon 03-24-2025 ALP [Catalytic activity/Vol] 61 U/L 35-104 [facility] Serum or plasma amylase pieter urement (enzymatic activity/volume)on 03-24-2025 Amylase [Catalytic activity/Vol] 61 U/L 28-100 [facility] Serum or plasma calcium pieter urement (mass/volume)on 03-24-2025 Calcium [Mass/Vol] 9.7 mg/dL 7.6-11.0 [facility] Serum or plasma ferritin lizzette surement (mass/volume)on 03-24-2025 Ferritin [Mass/Vol] 94 ng/mL 22-378 [facility] Serum or plasma iron saturat ion measurement (mass fraction)on 03-24-2025 Iron saturation [Mass fraction] 26.0 % 13-59 [facility] Serum or plasma urea nitroge n measurement (mass/volume)on 03-24-2025 Urea nitrogen [Mass/Vol] 18 mg/dL 4-19 [facility] Serum tissue transglutaminas e (tTG) IgA antibody assay (units/volume)on 03-24-2025 tTG IgA Qn (S) <2 U/mL 0-3 [facility] Comment on above: Negative 0 - 3 Weak Positive 4 - 10 Positive >10 Tissue Transglutaminase (tTG) has been identified as the endomysial antigen. Studies have demonstr- ated that endomysial IgA antibodies have over 99% specificity for gluten sensitive enteropathy. Sodium levelon 03-24-2025 Sodium [Moles/Vol] 137 mmol/L 133-145 [facility] TSH DL <= 0.005 mIU/L Qnon 0 03-24-2025 TSH Qn 0.281 uIU/mL Low 0.300-4.20 0 [facility] Thyroid Stim Hormone (TSH)on 03-24-2025 TSH 0.281 uIU/mL Low 0.300-4.20 0 [facility] Comment on above: Performed By: #### L 3410.2350, L501.2400, L503.6550, L501.9520, L100.0100, L503.6030, L500.4050, L503.0106, L506.0200, L101.9900 ####[facility] [address] [place], [place], [phone] Total proteinon 03-24-2025 Protein [Mass/Vol] 7.0 g/dL 5.9-8.4 [facility] Vitamin B12on 03-24-2025 Cobalamin (Vitamin B12) [Mass/Vol] 306 pg/mL Normal 180-914 [facility] Comment on above: Performed By: #### L 3410.2350, L501.2400, L503.6550, L501.9520, L100.0100, L503.6030, L500.4050, L503.0106, L506.0200, L101.9900 ####[facility] [address] [place], [place], [phone] Vitamin B12 ser/plason 03-24 Cobalamin (Vitamin B12) [Mass/Vol] 306 pg/mL 180-914 [facility] White blood cell (WBC) count on 03-24-2025 WBC (Bld) [#/Vol] 8.0 10*3/uL 4.4-11.0 [facility] Telephone Encounteron 2024 [employer] Authentication Interface Message Text Brief ENT Telephone Note Called patient to discuss recent biopsy results, which showed Squamous mucosa with mild dysplasia and parakeratosis. Deeper levels are examined.. All questions answered and pt verbalized understanding of the plan with follow up on 05/22/25 Phillip Wells MD Otolaryngology - Head and Neck Surgery [facility] Pager: [phone] [email or web address] Addendum Noteon 03-11-2025 [employer] Authentication Interface Message Text Addended by: PHILLIP WELLS on: 03/11/2025 11:51 AM Modules accepted: Orders Normal [email or web address] Patient Instructionson 03-11 [employer] Authentication Interface Message Text For pain you can take Tylenol and Ibuprofen. For bad pain you can alternate these every 3 hours. Do not take additional Tylenol if you are taking Excedrine. 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 Fraser). Now status post left partial glossectomy with [...] January. Recently s/p biopsy with Dr. Arguelles (family resource management specialist) c/w with invasive SCCa. She reports hx [...] drink alcohol and does not use drugs. Medications/Allergies/Imm unizations: Her current medication(s) include: @CMEDLISTP@ Allergies: Amlodipine [...] Laser treatment of left oral cavity, CPT 22109 Pre-procedure Dx: Oral cavity leukoplakia History of prior left lateral tongue SCCa s/p partial glossectomy with primary closure (more content not included)... Normal [facility] [employer] Authentication Interface Message Text Patient identfied by name and date of Pharmacy updated Vital signs taken Patent in exam room ready for MD Normal [facility] [employer] Cardiology Visit Reporton Cardiology Visit Report [facility] [address] [place] [address] OFFICE VISIT Date of Service: 01/22/25 MR#: [id number] Acct: [id number] Name: OMAIRA OLIVER Rep #: [id number] : 1940 Provider: MURALI Song Age/Sex: 84/F [place] [facility] [place] Signed HPI HPI History of Present Illness Details: Omaira Oliver is an 84 year-old female with a history of underlying valvular heart related issues, diastolic dysfunction, pulmonary hypertension, hyperlipidemia, and hypertension. She was diagnosed with squamous cell carcinoma on her tongue last year. She had one episode of chest heaviness at the end of july. She has not had any since then. From a cardiac standpoint, patient is doing well. She does not have any worsening symptoms of [...] any symptoms of claudication. Intake Vital Signs 01/21/24 11:32 01/22/25 07:47 Height 5 ft 2 in 5 ft 2 in Weight: 138 lb BMI 25.2 BP 141/91 H Blood Pressure Location Lt brachial Position Sitting Respiration 18 Pulse 72 Pulse Source Monitor Pulse Oximetry (%) 100 Intake Visit Reasons: 1 Y FU/PREV PFM Front Maker Required: No Is patient in pain?: No Allergies amitriptyline Allergy (Severe, Verified 01/22/25 08:34) hypotension meloxicam Allergy (Severe, Verified 01/22/25 08:34) hypotension lidocaine Adverse Reaction (Mild, Verified 01/22/25 08:34) shaking cortisone Adverse Reaction (Verified 01/22/25 08:34) Nausea, hot flashes, and passing out hydrochlorothiazide Adverse Reaction (Verified 01/22/25 08:34) Other morphine Adverse Reaction (Verified 01/22/25 08:34) Other nitrofurantoin (From Macrobid) Adverse Reaction (Verified 01/22/25 08:34) Other Medications ???Medication ???Instructions ???Recorded ???Confirmed ???Type amlodipine 5 mg tablet 5 mg PO DAILY bp 08/28/17 01/22/25 History calcium 500 mg-vitamin D3 500 1 tab PO QDAY 07/03/18 01/22/25 Hi story unit-vitamin K 40 mcg chewable tablet (Viactiv) clobetasol 0.05 % topical gel 1 applic topical DAILY 02/18/21 History atorvastatin 20 mg tablet 20 mg PO QHS #90 tabs 01/21/24 Rx dicyclomine 10 mg capsule 10 mg PO BID PRN 01/22/25 01/22/25 History hydroxychloroquine 200 mg tablet 200 mg PO QDAY 01/22/25 01/22/25 H istory Ejection fraction %: 65 Have you fallen in the past year?: No PFSH Medical History Pure hypercholesterolemia Diverticulitis Essential hypertension Hiatal hernia History of aortic valve disorder GERRY (obstructive sleep apnea) Trigger finger of thumb GERD (gastroesophageal reflux disease) Nonrheumatic tricuspid (valve) insufficiency Nonrheumatic mitral valve regurgitation Diastolic dysfunction Pulmonary hypertension Back pain Neck pain Limb weakness Difficulty balancing Knee pain Anemia Acute hemorrhoid Basal cell carcinoma Surgical History History of partial knee replacement Status post trigger finger release History of spinal fusion Hx of carpal tunnel repair History of back surgery Hx of hysterectomy Hx of cholecystectomy Hx of tonsillectomy s/p right knee UKA h/o left carpal tunnel release Hx of cholecystectomy spinal fusion History of tonsillectomy H/O: hysterectomy Family History Mother Hypertension Father Hypertension Grandmother CVA (cerebral vascular accident) Grandfather Myocardial infarction Grandfather Myocardial infarction Other Cervical cancer Lung cancer Social History Smoking Status: Never smoker alcohol intake: never substance use type: does not use ROS Const Const: Negative for fatigue, weakness, headache(s) or frequent falls Eyes Eyes: Negative for blurry vision ENT ENT: Negative for headache(s), dizziness or Nosebleed/epistaxis Cardio Chest Pain: No Palpitations: No Edema: Bilateral Muscle aches with walking: None Resp Respiratory: Negative for SOB with activity, SOB at rest or SOB orthopnea SOB lying down GI GI: Negative nausea, vomiting, heartburn, bright, red blood in stools or black,tarry stools : Negative for hematuria Neuro Neuro: Negative for dizziness, frequent falls, headache(s), weakness or blurry (more content not included)... Normal [facility] Patient Instructionson 01-02 Off Track Betting Manager Authentication Interface Message Text [facility] [phone] Normal [facility] Progress Noteson 01-02-2025 Off Track Betting Manager Authentication Interface Message Text OTOLARYNGOLOGY - HEAD AND NECK SURGERY CLINIC NOTE CHIEF COMPLAINT: Chief Complaint Patient presents with follow up: follow up: status post left partial glossectomy HPI: Omaira Oliver is a 84 year old female with PMH significant for hx of lichen planus for 10 yrs who presents today, 01/02/2025, at the [facility] for follow up for 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 Fraser). Now status post left partial glossectomy with [...] January. Recently s/p biopsy with Dr. Arguelles (family resource management specialist) c/w with invasive SCCa. She reports hx [...] drink alcohol and does not use drugs. Medications/Allergies/Imm unizations: Her current medication(s) include: @CMEDLISTP@ Allergies: Amitriptyline, [...] adequate. Pathologic Review: 10/13/24 Final Diagnosis A. Tongue, Left partial glossectomy MINUTE FOCUS OF RESIDUAL WELL DIFFERENTIATED MICROINVASIVE [...] lateral tongue SCCa s/p outside biopsy (Dr. Fraser). Now status post left partial glossectomy with [...] the left RMT that may be all rela (more content not included)... Normal [employer] Authentication Interface Message Text Patient was identified by name and date of . Pt triaged: health history, vital signs, allergies, medications, preferred pharmacy, reason for visit and complaints reviewed. Pt appearing in good health, no signs/symptoms of current distress. Patient at risk for falls: yes Falls Risk protocol implemented: yes Normal [facility] [employer] Interface Message Text SPEECH LANGUAGE PATHOLOGY OUTPATIENT DISCHARGE NOTE Location: [facility] Patient identified by patient stating name and date of . Payor: [employer] MEDICARE PFFS / Plan: [employer] MEDICARE [place]/HMO/PFFS [...] OBJECTIVE: Short Term Goals: Patient will complete [id number] of effortful swallows to optimize oropharyngeal pressure in anticipation of dysphagia. --hasn't been doing very often lately --completes x3 independently, difficulty completing more d/t xerostomia --WEDGER provides education/recommendations to complete at beginning of meals with boluses for 1-2 months to ensure strength regained Patient will participate in further swallow, speech, voice, trismus, and/or lymphedema evaluation as deemed clinically appropriate by the treating clinician. Current diet: Breakfast: chilean muffin with jam Lunch: grilled cheese, soup/chili, vegetables Avoids: some meats, primarily for dietary reasons Performance Status Scale for Head and Neck Cancer Patients (PSS-HN) Normalcy of Diet 90- Full diet (liquid assist) Public Eating 75- No restrictions of place, but restricts diet when in public (eats anywhere, but may limit intake to less messy foods (e.g. liquids) Understandability of Speech 100- Always understandable Total List CASPER, Arsh Ya, Chano ESPINAL. A Performace Status [...] written and verbal HEP. PLAN: Continue POC Custodial Goals: 1. Patient will tolerate a PO diet without pulmonary compromise. HOME PROGRAM/EDUCATION: Diet Recommendation: Regular Diet and Thin Liquids Exercises: - eating and drinking different consistencies as desired - effortful swallow - tongue exercises - move tongue forward, [id number], up-down - tongue sweep around the teeth (upper, lower, inside, outside) Oral care: - clean mouth after each meal Dry mouth: - add sauce / moisture - alternate solid/liquids - take a sip of water with dry foods to help chewing Arely Bates CCC-WEDGER Speech-Language Pathologist Normal [facility] Brain/Head without Contrasto n 11-18-2024 Brain/Head without Contrast [facility] Imaging Services [address] [place] [address] Brain/Head without Contrast MR#: [id number] Acct: [id number] Name: OMAIRA OLIVER Rep #: [id number] : 1940 F 84 From: Yves Paul MD PCP: Dr. Юлия Conti MD Status: REG CL Study: Brain/Head without Contrast Date of Exam: 10/27 03/19 Exam# [id number] Ordering Dr: Naveen Gonzalez NP MARINE EQUIPMENT DESIGN ENGINEER -C [id number] INDICATION: dizziness leaning toward the left EXAMINATION: CT BRAIN - CT Head or Brain W/O Contrast Injection TECHNIQUE: Multiple axial images were obtained of the head without intravenous contrast. A radiation dose optimization technique was used for this scan. IV Contrast dosage and agent: None. COMPARISON: None. FINDINGS: BRAIN PARENCHYMA: No intra- or extra-axial hemorrhage. No evidence of acute infarct. No intracranial mass or mass effect. There is preservation of the barbosa/white matter interface. Posterior fossa structures are unremarkable. Volume loss with low attenuation of the periventricular white matter typical of chronic small vessel disease. CSF SPACES: Appropriate for age. No hydrocephalus. Basal cisterns are patent. CALVARIUM, SKULL BASE, PARANASAL SINUSES AND MASTOID AIR CELLS: Clear. No discrete lytic or blastic abnormalities. CT/Brain/Head without Contrast IMPRESSION: Volume loss with chronic white matter changes. No acute intracranial findings. Electronically Signed: Yves Paul MD at 15:20 EST , CC: Naveen ACOSTA McMorrow; Dr. Юлия Conti MD Library Paraprofessional: Signed Normal [facility] CBC W/Diff, Automatedon 10-26 Absolute Lymph 0.91 X10 3/uL Normal 0.83-4.51 [facility] Comment on above: Order Comment: Order Date: 11/06/24 Order Info: 018-1 - CBCD Performed By: #### L 100.0100 #### [facility] Laboratory [address] [place], [address] Absolute Neut 4.1 X10 3/uL Normal 2.0-7.7 [facility] Comment on above: Order Comment: Order Date: 11/06/24 Order Info: 0184-1 - CBCD Performed By: #### L 100.0100 #### [facility] [address] [place], [address] Basophils/100 WBC (Bld) 0.5 % Normal 0-1 [facility] Comment on above: Order Comment: Order Date: 11/06/24 Order Info: 0184-1 - CBCD Performed By: #### L 100.0100 #### [facility] [address] [place], [address] Eosinophils/100 WBC (Bld) 0.7 % Normal 0-5 [facility] Comment on above: Order Comment: Order Date: 11/06/24 Order Info: 0184-1 - CBCD Performed By: #### L 100.0100 #### [facility] [address] [place], [address] Erythrocyte distribution width (RBC) [Ratio] 13.0 % Normal 11.6-14.6 [facility] Comment on above: Order Comment: Order Date: 11/06/24 Order Info: 0184- - CBCD Performed By: #### L 100.0100 #### [facility] [address] [place], [address] Hematocrit (Bld) [Volume fraction] 34.7 % Low 37-47 [facility] Comment on above: Order Comment: Order Date: 11/06/24 Order Info: 018- - CBCD Performed By: #### L 100.0100 #### [facility] [address] [place], [address] Hemoglobin (Bld) [Mass/Vol] 10.8 g/dL Low 12.0-15.0 [facility] Comment on above: Order Comment: Order Date: 11/06/24 Order Info: 018- - CBCD Performed By: #### L 100.0100 #### [facility] [address] [place], [address] IG% 0.300 Normal 0.0-0.9 [facility] Comment on above: Order Comment: Order Date: 11/06/24 Order Info: 018- - CBCD Result Comment: IG% - Immature Granulocytes (promyelocytes, myelocytes and metamyelocytes) > 1% indicates that a LEFT SHIFT is Present. Performed By: #### L 100.0100 #### [facility] [address] [place], [address] Lymphocytes/100 WBC (Bld) 15.9 % Low 19-41 [facility] Comment on above: Order Comment: Order Date: 11/06/24 Order Info: 018- - CBCD Performed By: #### L 100.0100 #### [facility] [address] [place], [address] MCH (RBC) [Entitic mass] 29.9 pg Normal 27.0-32.0 [facility] Comment on above: Order Comment: Order Date: 11/06/24 Order Info: 018- - CBCD Performed By: #### L 100.0100 #### [facility] [address] [place], [address] MCHC (RBC) [Mass/Vol] 31.1 g/dL Low 32-36 [facility] Comment on above: Order Comment: Order Date: 11/06/24 Order Info: 0184-1 - CBCD Performed By: #### L 100.0100 #### [facility] [address] [place], [address] MCV (RBC) [Entitic vol] 96.1 fL Normal 81-99 [facility] Comment on above: Order Comment: Order Date: 11/06/24 Order Info: 0184-1 - CBCD Performed By: #### L 100.0100 #### [facility] [address] [place], [address] Monocytes/100 WBC (Bld) 10.6 % High 0-10 [facility] Comment on above: Order Comment: Order Date: 11/06/24 Order Info: 0184-1 - CBCD Performed By: #### L 100.0100 #### [facility] [address] [place], [address] Neutrophils/100 WBC (Bld) 72.0 % High 47-70 [facility] Comment on above: Order Comment: Order Date: 11/06/24 Order Info: 0184-1 - CBCD Performed By: #### L 100.0100 #### [facility] [address] [place], [address] Nucleated RBC (Bld) [#/Vol] 0 10*3/uL Normal 0-5 [facility] Comment on above: Order Comment: Order Date: 11/06/24 Order Info: 0184-1 - CBCD Performed By: #### L 100.0100 #### [facility] [address] [place], [address] Platelet mean volume (Bld) [Entitic vol] 10.8 fL Normal 6.2-12.0 [facility] Comment on above: Order Comment: Order Date: 11/06/24 Order Info: 0184-1 - CBCD Performed By: #### L 100.0100 #### [facility] [address] [place], [address] Platelets (Bld) [#/Vol] 341 10*3/uL Normal 150-450 [facility] Comment on above: Order Comment: Order Date: 11/06/24 Order Info: 0184-1 - CBCD Performed By: #### L 100.0100 #### [facility] [address] [place], [address] RBC (Bld) [#/Vol] 3.61 10*6/uL Low 4.2-5.4 [facility] Comment on above: Order Comment: Order Date: 11/06/24 Order Info: 0184-1 - CBCD Performed By: #### L 100.0100 #### [facility] [address] [place], [address] RDW SD 46.3 fl High 35.1-43.9 [facility] Comment on above: Order Comment: Order Date: 11/06/24 Order Info: 0184-1 - CBCD Performed By: #### L 100.0100 #### [facility] [address] [place], [address] WBC (Bld) [#/Vol] 5.7 10*3/uL Normal 4.4-11.0 [facility] Comment on above: Order Comment: Order Date: 11/06/24 Order Info: 0184-1 - CBCD Performed By: #### L 100.0100 #### [facility] [address] [place], [address] Comprehensive Metabolic Prof ilon 11-06-2024 Albumin [Mass/Vol] 3.9 g/dL Normal 3.2-5.0 [facility] Comment on above: Order Comment: Order Date: 11/06/24 Order Info: 0786-1 - CMP Order Info: 301-3 - TSH Performed By: #### L 500.4050 #### [facility] [address] [place], [address] Albumin/Globulin [Mass ratio] 1.1 {ratio} Normal 0.9-2.4 [facility] Comment on above: Order Comment: Order Date: 11/06/24 Order Info: 0786-1 - CMP Order Info: 3015-3 - TSH Performed By: #### L 500.4050 #### [facility] [address] [place], [address] ALK P 62 U/L Normal 45-117 [facility] Comment on above: Order Comment: Order Date: 11/06/24 Order Info: 0786-1 - CMP Order Info: 3 - TSH Performed By: #### L 500.4050 #### [facility] [address] [place], [address] ALT [Catalytic activity/Vol] 24 U/L Normal 13-56 [facility] Comment on above: Order Comment: Order Date: 11/06/24 Order Info: 0786-1 - CMP Order Info: 3016-3 - TSH Performed By: #### L 500.4050 #### [facility] [address] [place], [address] AST [Catalytic activity/Vol] 21 U/L Normal 15-37 [facility] Comment on above: Order Comment: Order Date: 11/06/24 Order Info: 0786-1 - CMP Order Info: 3016-3 - TSH Performed By: #### L 500.4050 #### [facility] [address] [place], [address] Bilirubin [Mass/Vol] 0.40 mg/dL Normal 0.20-1.00 [facility] Comment on above: Order Comment: Order Date: 11/06/24 Order Info: 0786-1 - CMP Order Info: 301-3 - TSH Result Comment: For patients on eltrombopag therapy, use of Dimension [place] TBIL is not recommended. Performed By: #### L 500.4050 #### [facility] [address] [place], [address] BUN/CRE 19.0 RATIO Normal 10-20 [facility] Comment on above: Order Comment: Order Date: 11/06/24 Order Info: 0786-1 - CMP Order Info: 3015-3 - TSH Performed By: #### L 500.4050 #### [facility] [address] [place], [address] CA,Total 10.0 mg/dL Normal 8.5-10.1 [facility] Comment on above: Order Comment: Order Date: 11/06/24 Order Info: 785-1 - [facility] Order Info: 3 - TSH Performed By: #### L 500.4050 #### [facility] [address] [place], [address] Chloride [Moles/Vol] 102 mmol/L Normal 98-107 [facility] Comment on above: Order Comment: Order Date: 11/06/24 Order Info: 0786-1 - CMP Order Info: 301-3 - TSH Performed By: #### L 500.4050 #### [facility] [address] [place], [address] CO2 [Moles/Vol] 24.0 mmol/L Normal 21.0-32.0 [facility] Comment on above: Order Comment: Order Date: 11/06/24 Order Info: 0786-1 - CMP Order Info: 301-3 - TSH Performed By: #### L 500.4050 #### [facility] [address] [place], [address] Creatinine [Mass/Vol] 1.00 mg/dL Normal 0.55-1.02 [facility] Comment on above: Order Comment: Order Date: 11/06/24 Order Info: 0786-1 - [facility] Order Info: 3016-01 - TSH Result Comment: The validity of the calculated GFR GFRAA in patients over 70 years has not been determined. Clinical correlation is essential. Performed By: #### L 500.4050 #### [facility] [address] [place], [address] EST GFR - AA 68 mL/min Normal >60 [facility] Comment on above: Order Comment: Order Date: 11/06/24 Order Info: 0786- - [facility] Order Info: 3016-01 - TSH Result Comment: Afri can Grenadian GFR Calc Performed By: #### L 500.4050 #### [facility] [address] [place], [address] GAP 11 Normal 5-15 [facility] Comment on above: Order Comment: Order Date: 11/06/24 Order Info: 0786- - [facility] Order Info: 3016-01 - TSH Performed By: #### L 500.4050 #### [facility] [address] [place], [address] GFR/1.73 sq M.predicted among non-blacks MDRD (S/P/Bld) [Vol rate/Area] 56 mL/min/{1.73_m2} Low >60 [facility] Comment on above: Order Comment: Order Date: 11/06/24 Order Info: 0786- - [facility] Order Info: 3016-01 - TSH Result Comment: Non- GFR Calc Performed By: #### L 500.4050 #### [facility] [address] [place], [address] Globulin (S) [Mass/Vol] 3.5 g/dL Normal 2.2-4.2 [facility] Comment on above: Order Comment: Order Date: 11/06/24 Order Info: 0786-1 - CMP Order Info: 3016-01 - TSH Performed By: #### L 500.4050 #### [facility] [address] [place], [address] Glucose [Mass/Vol] 79 mg/dL Normal 74-106 [facility] Comment on above: Order Comment: Order Date: 11/06/24 Order Info: 0786-1 - CMP Order Info: 3015-3 - TSH Performed By: #### L 500.4050 #### [facility] [address] [place], [address] Potassium [Moles/Vol] 3.3 mmol/L Low 3.5-5.1 [facility] Comment on above: Order Comment: Order Date: 11/06/24 Order Info: 785-11 - CMP Order Info: 3015-3 - TSH Performed By: #### L 500.4050 #### [facility] [address] [place], [address] Sodium [Moles/Vol] 137 mmol/L Normal 136-145 [facility] Comment on above: Order Comment: Order Date: 11/06/24 Order Info: 07 - [facility] Order Info: 3 - TSH Performed By: #### L 500.4050 #### [facility] [address] [place], [address] T PROT 7.4 g/dL Normal 6.4-8.2 [facility] Comment on above: Order Comment: Order Date: 11/06/24 Order Info: 0786 - [facility] Order Info: 301-3 - TSH Performed By: #### L 500.4050 #### [facility] [address] [place], [address] Urea nitrogen [Mass/Vol] 19 mg/dL High 7-18 [facility] Comment on above: Order Comment: Order Date: 11/06/24 Order Info: 0786-1 - CMP Order Info: 301-3 - TSH Performed By: #### L 500.4050 #### [facility] [address] [place], [address] Thyroid Stim Hormone (TSH)on 11-06-2024 TSH 0.802 uIU/mL Normal 0.358-3.74 0 [facility] Comment on above: Order Comment: Order Date: 11/06/24Order Info: 0786-1 - CMPOrder Info: 3016-3 - TSH Performed By: #### L 501.9520 ####[facility] [address] [place], [place], [address] Vitamin D,25 Hydroxyon 11-06 Vitamin D 25-OH 137.7 ng/mL Normal [facility] Comment on above: Order Comment: Order Date: 11/06/24Order Info: 03113-6 - VITD25 Result Comment: Maddi min D 25(OH) Status Range Deficiency <20 ng/mL (50nmol/L) Insufficiency 20 - 30 ng/mL (50 - 75 nmol/L) Sufficiency 30 - 100 ng/mL (75 - 250 nmol/L) Toxicity >100 ng/mL (>250 nmol/L) Evidence suggests that patients undergoing fluorescein dye angiography can retain small amounts of fluorescein in the body for up to 48 to 72 hours post-treatment. In the cases of patients with renal insufficiency, retention could be much longer. Samples containing fluorescein can produce falsely elevated values when tested with the [employer] Centaur Vitamin D assay. With fluorescein interference, observed Vitamin D values can be as high as >150 ng/mL (>375 nmol/L). Samples should be resubmitted post fluorescein clearance to ensure there is no interference with Vitamin D test results. Performed By: #### L 506.1000 ####[facility] [id number] [place], [place], [address] Tumor Board Noteon Off Track Betting Manager Authentication Interface Message Text Cancer Type: General Tumor Board Note Provided by Kellen Hannon MD on 11/05/2024 Diagnosis: Oral cavity SCCa Tumor Board Type: ENT Brief Clinical Summary: 84 year old female with a 7 month hx of left lateral tongue lesion. Underwent biopsy with Dr. Arguelles (family resource management specialist) c/w with invasive SCCa before being referred [...] national standards and review of the literature. Normal [facility] Progress Noteson 11-03-2024 Off Track Betting Manager Authentication Interface Message Text Documentation: Mode: Telephone Patient Patient Work Phone: Patient Cell Preferred phone: [phone] Consent: I confirmed patient understanding of the risks and benefits of telehealth visits and obtained consent to proceed with the telehealth visit. 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 Wells Chief Complaint: I'm doing better Previous Goals Set/Progress 1. Aim to eat [...] PARTIAL Left 10/13/2024 Procedure: GLOSSECTOMY, PARTIAL; Surgeon: Phillip Wells MD; Location: PERIOPERATIVE SERVICES; Service: Otolaryngology LARYNGOSCOPY N/A 10/13/2024 Procedure: LARYNGOSCOPY, DIRECT; Surgeon: Phillip Wells MD; Location: PERIOPERATIVE SERVICES; Service: Otolaryngology is allergic to amitriptyline, cardizem [diltiazem], cortisone, hydrochlorothiazide, meloxicam, morphine, and myrbetriq [mirabegron]. Medication: Current Outpatient Medications: diphenhydrAMINE-aluminum AND magnesium wphbiccgo-lezrnfgszpt-ceq ocaine viscous, Take 10 mL by mouth 3 times a day., Disp: 473 mL, Rfl: 0 senna (SENOKOT) 8.6 MG tablet, Take 1 Tablet by mouth daily as needed for Constipation for up to 7 days., Disp: 7 Tablet, Rfl: 0 chlorhexidine (PERIDEX) 0.12 % oral solution, Swish and spit 15 mL by mouth 3 times a day., Disp: 473 mL, Rfl: 1 Ufgynxn-Xyvuewnpekwxt-Rjf feine (EXCEDRIN ORAL), Take by mouth as needed., [...] Biochemical Data/Medical testing/Procedures: No results found for: HBA1C Lipids (last 3 years, up to 8 [...] AST 14 Anthropometric Measurements: Weight: 131# Height: 61 BMI: 24.9 UBW: 130# BP Readings from Last 1 Encounters: 10/28/24 133/80 Weight Change Since Last Visit: N/A Weight history: Wt Readings from Last 10 Encounters: 10/13/24 131 lb (59.4 kg) 10/01/24 131 lb 8 oz (59.6 kg) 09/26/24 129 lb 12.8 oz (58.9 kg) Food/Nutrition-Related History: Appetite: better Supplements: Premier Protein varies % supplement intake: 100% Provides: varies GI Sx: None Urine: Yellow Dentition: Own Teeth Allergies/Intolerance: None 24 Hour Recall: B: chilean muffin (1), scrambled egg (1) Snack: none L: none Snack: none D: baked potato with cheese (1), broccoli (1/2 cup), turkey (1 piece) Snack: none Beverages: Premier Protein (2 bottles), water Nutrition Focused Physical Exam: Muscle loss: [place] region: not assessed Clavicle region: not assessed Scapula region: not assessed Hand: not assessed Anterior thigh: not assessed Posterior calf: not assessed Fat loss: Orbital region: not assessed Tricep/bicep region: not assessed Rib/back region: not assessed Edema: not assessed Estimated Needs: 7780-8306 kcal/d 30-35 kcal/kg 77-89 g pro/d 1.3-1.5 g pro/kg 1520-8216 mL/d fluid Assessment for Malnutrition: Not at risk for malnutrition 84 y/o F with PMHx of lichen planus. 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 Now s/p L partial glossectomy with primary closure 10/13. Pt reports she had lost ~10# in a week after surgery. Notes she lost a lot of muscle tone and was feeling very week. Since then, has gained ~5-6 pounds. Has been trying (more content not included)... Normal [facility] Progress Noteson 10-28-2024 Off Track Betting Manager Authentication Interface Message Text SPEECH LANGUAGE PATHOLOGY OUTPATIENT DAILY TREATMENT NOTE Location: [facility] Patient identified by patient stating name and date of . Payor: [employer] MEDICARE PFFS / Plan: [employer] MEDICARE [place]/HMO/PFFS / Product Type: Medicare Time In: 2:20pm Time Out: 2:43pm Duration: 23 minutes Session #: 01/05 SUBJECTIVE: Patient subjective/goals: Patient arrives on time for appointment accompanied by xazyfdey-xf-jba. Patient reports overall improvements with swallowing and speech. Patient reports consuming softer solids such as mashed potatoes, sweet potatoes, and apple sauce Pain:no Scale (if yes): /10 Location: OBJECTIVE: Short Term Goals: Patient will complete [id number] of effortful swallows to optimize oropharyngeal pressure [...] in agreement with plan. PLAN: Continue POC Custodial Goals: 1. Patient will tolerate a PO diet without pulmonary compromise. HOME PROGRAM/EDUCATION: Diet Recommendation: Regular Diet and Thin Liquids Exercises: - eating and drinking different consistencies as desired Jonh Lees Catering Sales Manager Clinician I was present during the entire speech therapy session with patient. I directly supervised Jonh Lees and assisted her with the assessment, treatment, documentation and billing for this visit. I agree with her clinical decision making and have discussed the case with her. JOSHUA Saavedra, MA, CCC-WEDGER Speech-Language Pathologist Normal [facility] Off Track Betting Manager Authentication Interface Message Text Patient was identified by name and date of . Pharmacy updated Vital signs taken Patient in exam room ready for MD. 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 Fraser). Now status post left partial glossectomy with [...] January. Recently s/p biopsy with Dr. Arguelles (family resource management specialist) c/w with invasive SCCa. She reports hx [...] drink alcohol and does not use drugs. Medications/Allergies/Imm unizations: Her current medication(s) include: @CMEDLISTP@ Allergies: Amitriptyline, [...] adequate. Pathologic Review: 10/13/24 Final Diagnosis A. Tongue, Left partial glossectomy MINUTE FOCUS OF RESIDUAL WELL DIFFERENTIATED MICROINVASIVE [...] lateral tongue SCCa s/p outside biopsy (Dr. Fraser). Now status post left partial glossectomy with [...] adjuvant recommendations -okay for soft diet; appreciate WEDGER evaluation and recommendations -tentative plan for CT neck at 1 year postop or sooner as needed -okay to resume lichen planus medications in 2 weeks -recommend close follow up with me every 2 months for the 1st year and then 3 months in the 2nd year but could consider transitioning to alternating between me and Dr. Fraser at [place] [facility] Phillip Wells MD Otolaryngology - Head and (more content not included)... Normal [facility] Telephone Encounteron 2023 Off Track Betting Manager Authentication Interface Message Text Brief ENT Telephone Note Called patient to discuss recent pathology results on 10/17/24, which showed Final Diagnosis A. Tongue, Left partial glossectomy MINUTE FOCUS OF RESIDUAL WELL DIFFERENTIATED MICROINVASIVE [...] and pt verbalized understanding of the plan. Phillip Wells MD Otolaryngology - Head and Neck Surgery [facility] Pager: [phone] Normal [facility] Tele[facility] Encounteron 2023 Off Track Betting Manager Authentication Interface Message Text Omaira from [facility] in [place] called to verify pt information and to contact pt in regards to BMX solution. Normal [facility] Anesthesia Postprocedure Kamille luationon 10-13-2024 Off Track Betting Manager Authentication Interface Message Text Anesthesia Postoperative Assessment: Vital Signs (most recent): BP 135/76 Pulse 74 Temp 36.6 ???C (97.9 ???F) (Temporal) Resp 11 Ht 5' 1 (1.549 m) Wt 131 lb (59.4 kg) SpO2 96% BMI 24.75 kg/m??? Anesthesia Post Evaluation Level of consciousness: awake Post-procedure exam normal. Body temperature, hydration status, PONV and pain evaluated and addressed. Pain management: adequate Hydration status: normal PONV:No nausea/vomiting reported Cardiopulmonary status stable Respiratory status: acceptable Cardiovascular status: acceptable ANESTHESIA NOTABLE EVENTS: No notable events documented. Normal [facility] Anesthesia Preprocedure Eval uationon 10-13-2024 Off Track Betting Manager Authentication Interface Message Text ASA: 3 No history of anesthetic complications NPO status: Greater than 8 hours Past Medical History and Review of Systems Pulmonary - negative ROS (-) non-smoker Dental Endo (-) obesity tank hoop bender (+) post-menopausal Neuro/Psych Comment: + Hx of [...] were discussed with the patient and/or legal retail service representative. The risks, benefits and alternatives were reviewed. Questions regarding anesthesia were answered. Patient and/or legal retail service representative knows such anesthetics and procedures may be performed by Resident physicians, Certified Anesthesiologist Assistants, or Certified Nurse Anesthetists under the supervision of a physician. The patient /or the patient's legal retail service representative agree with the plan for anesthesia. MHPATFORM Normal The [facility] Anesthesia Transfer Of Careo n 10-13-2024 Off Track Betting Manager Authentication Interface Message Text Patient taken to PACU. Patient was drowsy, comfortable, and stable on arrival. [...] Myrbetriq [mirabegron] Basic Operating Room Facts: Surgeon(s): Phillip Wells MD Anesthesiologist: Marc Long MD CAA: Jovan Jaarmillo CAA LARYNGOSCOPY, DIRECT (Throat) GLOSSECTOMY, PARTIAL (Left: [...] gauge Right Forearm (Active) Site Assessment WNL 10/13/24 0946 Infusion Status Port #1 Capped;Patent;Positive blood return 10/13/24 0946 Airway Insertion Details [REMOVED] Advanced Airway: [...] the report was received. Marc Long MD Normal [facility] Blood Attestationon 10-13-20 Off Track Betting Manager Authentication Interface Message Text Blood Attestation: ATTESTATION OF INFORMED CONSENT FOR BLOOD: The transfusion of blood and/or blood components were discussed with the patient and/or legal retail service representative. The risks, benefits and alternatives were reviewed. Questions regarding blood transfusions were answered. The patient /or the patient's legal retail service representative agree with the plan for transfusion of blood and/or blood components. 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] * Lichen planus [L43.9] Procedures: Partial glossectomy Direct laryngoscopy Surgeon(s): Surgeon(s): Phillip Wells MD Staff: Scrub: Demarco Bellamy RN; Morelia Flanagan CST Programming Development Project Manager Nurse: Radha Raymond RN Nanny/Household Manager: Kellen Hannon MD; Farida Jacobo MD Anesthesia: General Anesthesiologist: Marc Long MD CAA: Jovan Jaramillo CAA Specimen(s): ID Type Source Tests Collected by Time Destination 1 : Left partial glossectomy, black stitch [place]a anterior, white stitch [place]a superior Tissue Tongue SPECIMEN FOR SURGICAL PATH Phillip Wells MD 10/13/2024 1114 Estimated Blood Loss: [...] the procedure and procedure sign-out. Signed by Farida Jacobo MD 10/13/2024 12:28 PM Normal [facility] OP Noteon 10-13-2024 Off Track Betting Manager Authentication Interface Message Text Operative Report DATE OF SERVICE: 10/13/2024 PATIENT: Omaira Oliver PREOPERATIVE DIAGNOSIS: 1. [id number] squamous cell carcinoma of the left lateral tongue 2. History of lichen planus POSTOPERATIVE DIAGNOSIS: 1. 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 History of lichen planus PROCEDURE: 1. Direct laryngoscopy, CPT 94942 2. Left partial glossectomy with primary closure, CPT 91016. SURGEON: Phillip Wells MD AUTOMATIC GRINDING MACHINE OPERATOR: Farida Jacobo MD ANESTHESIA: General ESTIMATED BLOOD LOSS: [...] participated in the entirety of the case. Normal [facility] Telephone Encounteron 2023 Off Track Betting Manager Authentication Interface Message Text What is the need: Situation: pts daughter reporting her mother did not receive the BMX mouth wash because the pharmacy was out of the medication Background: s/p tongue surgery Assessment: n/a Recommendation: pts daughter advised that this RN will call the compound pharmacy in [place] and call in the prescription. Pts daughter verbalized understanding. Raquel Lee RN Normal [facility] Tumor Board Noteon Off Track Betting Manager Authentication Interface Message Text Cancer Type: General Tumor Board Note Provided by Phillip Wells MD on 10/10/2024 Diagnosis: T1 N0 [...] Yes -referrals to social work, nutrition and WEDGER Clinical Trial Eligibility Discussed NA Treatment Plan [...] national standards and review of the literature. Normal [facility] Addendum Noteon 10-07-2024 Off Track Betting Manager Authentication Interface Message Text Addended by: PELON PALACIOS on: 10/07/2024 09:48 AM Modules accepted: Orders Normal [email or web address] CREATININE FINGERSTICKon CREATININE WB < 1.0 Normal 0.55-1.02 [facility] Comment on above: Performed By: #### L 9100.0200 ####[facility] [id number] [place], [address] EGFR WB > 60.0000 Normal >60 [facility] Comment on above: Performed By: #### L 9100.0200 ####[facility] [id number] [place], [address] Soft Tissue Neck WITH Contra ston 10-03-2024 Soft Tissue Neck WITH Contrast [facility] Imaging Services [address] [place] [address] Soft Tissue Neck WITH Contrast MR#: [id number] Acct: [id number] Name: OMAIRA OLIVER Rep #: [id number] : 1940 F 84 From: Cortney aguilera MD PCP: Dr. Юлия Conti MD Status: REG CLI Study: Soft Tissue Neck WITH Contrast Date of Exam: 12/03/23 Exam# [id number] Ordering Dr: Juan C Fraser MD [id number] HISTORY: Malignant neoplasm of border of tongue. TECHNIQUE: Helically acquired images were obtained of the neck after the intravenous administration of 75 mL Isovue 370. A radiation dose optimization technique was used for this scan. 319 images. COMPARISON: PET-CT 09/23/2024. FINDINGS: NASOPHARYNX: Unremarkable. SUPRAHYOID NECK: Unremarkable oropharynx, oral cavity, parapharyngeal space, and retropharyngeal space with streak artifact from dental amalgam. INFRAHYOID NECK: Unremarkable larynx, hypopharynx, and supraglottis. THYROID: 1.6 cm right thyroid nodule with small rim calcification. SALIVARY GLANDS: Homogeneous parotid and submandibular glands. LYMPH NODES: No cervical or supraclavicular lymphadenopathy. VASCULAR STRUCTURES: Patent bilateral internal jugular veins and carotid arteries. Medial retropharyngeal course of the left internal carotid artery. ORBITS: Right lens resection. PARANASAL SINUSES/MASTOID AIR CELLS: Well aerated. No significant air-fluid levels. OSSEOUS STRUCTURES: Mild degenerative changes of the cervical spine. LUNG APICES: Clear. CT/Soft Tissue Neck WITH Contrast IMPRESSION: No definite tumor recurrence or metastatic disease identified with limited evaluation of the oral cavity due to streak artifact from dental amalgam. 1.6 cm heterogeneous right thyroid nodule; consider ultrasound follow-up. Electronically Signed: Cortney Antonio MD at 9:28 EST , CC: Dr. Юлия Conti MD; Dr. Juan C Fraser MD Library Paraprofessional: Signed Normal [facility] EKG 12 LEAD - PERFORMon 11-0 Diagnosis Normal sinus rhythm Normal ECG No previous ECGs available Confirmed by BRAD ZUNIGA ([id number]) on 10/02/2024 3:01:32 PM [facility] P wave At[facility] by EKG 73 BPM [facility] P wave axis 76 degrees [facility] P-R Interval 138 ms [facility] Q-T interval 404 ms [facility] Q-T interval corrected 445 ms [facility] QRS axis 20 degrees [facility] QRS duration 82 ms [facility] T wave axis 68 degrees [facility] Telephone Encounteron 2023 Off Track Betting Manager Authentication Interface Message Text Reached patient's daughter, who would like intermittent leave through the end of the year to be able to drive mother to appointments. Will fill out then attach via [employer] message. Also attempted to fax dental clearance for possible radiation therapy to Dr Omi oMntoya, but fax failed multiple times. Attempted to reach office to obtain different fax number. Left message for them to call back with working fax number. Pelon Palacios RN Normal [facility] Off Track Betting Manager Authentication Interface Message Text Dedra Varner received the [place] and added to Gauntlet Pairer I did fill out the simple stuff, can you help with the clinical questions? Provider Section starts on page [address] Wells sign or I can catch him tomorrow here at [facility]. Thank you Please let me know if you need anything. Normal [facility] BASIC METABOLIC PANELon 11-0 Anion gap [Moles/Vol] 13 mmol/L Normal 10-20 [email or web address] Comment on above: Performed By: #### Harley CONNOLLY CH8 #### S [facility] [address] [place] [address], Calcium [Mass/Vol] 9.6 mg/dL Normal 8.6-10.3 [email or web address] Comment on above: Performed By: #### Harley CONNOLLY CH8 #### [facility] [address] [place] [address], Chloride [Moles/Vol] 103 mmol/L Normal 98-107 [facility] Comment on above: Performed By: #### Harley CONNOLLY CH8 #### [facility] [address] [place] [address], CO2 [Moles/Vol] 28 mmol/L Normal 21-31 [email or web address] Comment on above: Performed By: #### Harley CONNOLLY CH8 #### [facility] [address] [place] [address], Creatinine [Mass/Vol] 0.77 mg/dL Normal 0.60-1.20 [facility] Comment on above: Performed By: #### Harley CONNOLLY CH8 #### [facility] [address] [place] [address], ESTIMATED GFR (CKD-EPI) 77 mL/min/1.73sqm Normal >=60 [email or web address] Comment on above: Result Comment: 2020 CKD EPI Equation using Creatinine without Race Comment: Estimated glomerular filtration rate (eGFR) is calculated without a race coefficient. Values should be interpreted in the context of the patient's full clinical presentation. Reference: 1. Dereck Ya, Evonne M, Cathy RODARTE, et al.. A Unifying Approach for GFR Estimation: Recommendations of the NKF-ASN Task Force on Reassessing the Inclusion of Race in Diagnosing Kidney Disease. [place] Journal of Kidney Diseases 2021;79(2):268-88.e1. 2. N Engl J Med 1 Vol. 385 Issue 19 Pages 2299-3923 Performed By: #### BETTYE DANIEL #### [facility] [address] [place] [address], Glucose [Mass/Vol] 102 mg/dL Normal 74-109 [facility] Comment on above: Performed By: #### BETTYE DANIEL #### [facility] [address] [place] [address], Potassium [Moles/Vol] 3.3 mmol/L Low 3.5-5.0 [facility] Comment on above: Performed By: #### BETTYE DANIEL #### [facility] [address] [place] [address], Sodium [Moles/Vol] 141 mmol/L Normal 136-145 [facility] Comment on above: Performed By: ###BETTYE BARDALES #### [facility] [address] [place] [address], Urea nitrogen [Mass/Vol] 27 mg/dL High 7-25 [facility] Comment on above: Performed By: ###BETTYE BARDALES #### [facility] [address] [place] [address], Basic metabolic 2000 panelon 10-01-2024 Anion gap [Moles/Vol] 13 mmol/L 10 - 20 Met [facility] Calcium [Mass/Vol] 9.6 mg/dL 8.6 - 10. 3 mg/dL [facility] Chloride [Moles/Vol] 103 mmol/L 98 - 10 7 mmol/L [facility] CO2 [Moles/Vol] 28 mmol/L 21 - 31 mmol/L [facility] Creatinine [Mass/Vol] 0.77 mg/dL 0.60 - 1.20 mg/dL [facility] GFR/1.73 sq M.predicted CKD-EPI (S/P/Bld) [Vol rate/Area] 77 - PINF [facility] Comment on above: 2020 CKD EPI Equatio n using Creatinine without Race Comment: Estimated glomerular filtration rate (eGFR) is calculated without a race coefficient. Values should be interpreted in the context of the patient's full clinical presentation. Reference: 1. Dereck C, Evonne M, Cathy DC, et al.. A Unifying Approach for GFR Estimation: Recommendations of the NKF-ASN Task Force on Reassessing the Inclusion of Race in Diagnosing Kidney Disease. [place] Journal of Kidney Diseases 202;79(2):268-88.e1. 2. N Engl J Med 1 Vol. 385 Issue 19 Pages 3781-2484 Glucose [Mass/Vol] 102 mg/dL 74 - 109 mg/dL [facility] Interpretation and review of laboratory results Abnormal [facility] Potassium [Moles/Vol] 3.3 mmol/L Low 3.5 - 5.0 mmol/L [facility] Sodium [Moles/Vol] 141 mmol/L 136 - 145 mmol/L [facility] Urea nitrogen [Mass/Vol] 27 mg/dL High 7 - 25 mg/dL [facility] CBC panel Auto (Bld)on 10-01 Erythrocyte distribution width (RBC) [Ratio] 14.5 % 11.5 - 14.5 % [facility] Hematocrit (Bld) [Volume fraction] 35.6 % Low 36.0 - 46.0 % [facility] Hemoglobin (Bld) [Mass/Vol] 11.8 g/dL Low 12.0 - 15.0 g/dL [facility] Interpretation and review of laboratory results Abnormal [facility] MCH (RBC) [Entitic mass] 31 pg 26.0 - 34.0 pg [facility] MCHC (RBC) [Mass/Vol] 33.1 g/dL 32.0 - 35.9 g/dL [facility] MCV (RBC) [Entitic vol] 93 fL 80 - 100 fL [facility] Platelet mean volume (Bld) [Entitic vol] 8.9 fL 7.5 - 11.2 fL [facility] Platelets (Bld) [#/Vol] 291 10*3/uL 150 - 400 K/uL [facility] RBC (Bld) [#/Vol] 3.81 10*6/uL Low [facility] WBC (Bld) [#/Vol] 8.9 10*3/uL 4.5 - 11.5 K/uL [facility] COMPLETE BLOOD COUNTon 10-01 Erythrocyte distribution width (RBC) [Ratio] 14.5 % Normal 11.5-14.5 [facility] Comment on above: Performed By: #### C BC ####[facility] PATHOLOGY [id number] [place], [place], Hematocrit (Bld) [Volume fraction] 35.6 % Low 36.0-46.0 [facility] Comment on above: Performed By: #### C BC ####[facility] PATHOLOGY [id number] [place] [address], Hemoglobin (Bld) [Mass/Vol] 11.8 g/dL Low 12.0-15.0 [facility] Comment on above: Performed By: #### C BC ####[facility] PATHOLOGY [id number] [place] [address], MCH (RBC) [Entitic mass] 31.0 pg Normal 26.0-34.0 [email or web address] Comment on above: Performed By: #### C BC ####[facility] PATHOLOGY [id number] [place] [address], MCHC (RBC) [Mass/Vol] 33.1 g/dL Normal 32.0-35.9 [facility] Comment on above: Performed By: #### C BC ####[facility] PATHOLOGY [id number] [place] [address], MCV (RBC) [Entitic vol] 93 fL Normal 80-100 The [facility] Comment on above: Performed By: #### C BC ####[facility] PATHOLOGY [id number] [place] [address], Platelet mean volume (Bld) [Entitic vol] 8.9 fL Normal 7.5-11.2 The [facility] Comment on above: Performed By: #### C BC ####[facility] PATHOLOGY [id number] [place], [place], Platelets (Bld) [#/Vol] 291 10*3/uL Normal 150-400 The [facility] Comment on above: Performed By: #### C BC ####[facility] PATHOLOGY [id number] [place] [address], RBC (Bld) [#/Vol] 3.81 10*6/uL Low 4.00-5.20 The [facility] Comment on above: Performed By: #### C MARSHA ####[facility] PATHOLOGY [id number] [place], [place], WBC (Bld) [#/Vol] 8.9 10*3/uL Normal 4.5-11.5 The [facility] Comment on above: Performed By: #### Bhakti LARSON ####[facility] PATHOLOGY [id number] [place], [place], CONFIRMATION ABO/RHon 2023 [facility] ABO and Rh group Nom (Bld) Blood group A Rh(D) positive Normal [facility] Comment on above: Performed By: ###Jerad DIAZ ####[facility] PATHOLOGY [id number] [place], [place], HEPATIC FUNCTION PANELon Albumin [Mass/Vol] 4.3 g/dL 3.5 - 5.7 g/dL [facility] ALP [Catalytic activity/Vol] 51 U/L [facility] ALT [Catalytic activity/Vol] 10 U/L [facility] AST [Catalytic activity/Vol] 14 U/L [facility] Bilirubin [Mass/Vol] 0.6 mg/dL 0.3 - 1 .0 mg/dL [facility] Bilirubin.direct [Mass/Vol] 0.12 mg/dL 0.03 - 0.18 mg/dL [facility] Interpretation and review of laboratory results Normal [facility] Protein [Mass/Vol] 6.9 g/dL 6.0 - 8.3 g/dL [facility] Albumin [Mass/Vol] 4.3 g/dL Normal 3.5-5.7 The [facility] Comment on above: Performed By: #### BETTYE DANIEL #### [facility] PATHOLOGY LABORATORY [address] [place], [place], ALK 51 IU/L Normal 34-104 The [facility] Comment on above: Performed By: #### BETTYE DANIEL #### [facility] PATHOLOGY LABORATORY [address] [place], [place], ALT [Catalytic activity/Vol] 10 U/L Normal 7-52 The [facility] Comment on above: Performed By: #### H MOHSEN, MARCO8 #### [facility] PATHOLOGY LABORATORY [address] [place] [address], AST [Catalytic activity/Vol] 14 U/L Normal 13-39 The [facility] Comment on above: Performed By: #### H MOHSEN, MARCO8 #### [facility] [address] [place] [address], Bilirubin [Mass/Vol] 0.6 mg/dL Normal 0.3-1.0 The [facility] Comment on above: Performed By: #### H MOHSEN, MARCO8 #### [facility] PATHOLOGY LABORATORY [address] [place] [address], Bilirubin.direct [Mass/Vol] 0.12 mg/dL Normal 0.03-0.18 The [facility] Comment on above: Performed By: #### Harley CONNOLLY, MARCO8 #### [facility] PATHOLOGY LABORATORY [address] [place] [address], Protein [Mass/Vol] 6.9 g/dL Normal 6.0-8.3 The [facility] Comment on above: Performed By: #### Harley CONNOLLY, MARCO8 #### [facility] PATHOLOGY LABORATORY [address] [place] [address], Laboratory - Blood bankon ABO and Rh group Nom (Bld) Blood group A Rh(D) positive [facility] No Panel Informationon 10-01 Interpretation and review of laboratory results Normal [facility] PARTIAL THROMBOPLASTIN TIMEo n 10-01-2024 aPTT Coag (Bld) [Time] 29 s [facility] aPTT Coag (Bld) [Time] 29 s Normal 25-37 The [facility] Comment on above: Performed By: #### A PTT, PT #### [facility] PATHOLOGY LABORATORY [address] [place] [address], PROTHROMBIN TIME AND INRon 1 12-01-2023 INR Coag (PPP) [Relative time] 1.01 {INR} 0.90 - 1.10 [facility] PT Coag (PPP) [Time] 11.3 s [facility] INR Coag (PPP) [Relative time] 1.01 {INR} Normal 0.90-1.10 [facility] Comment on above: Performed By: #### A PTT, PT #### S PATHOLOGY LABORATORY [address] [place], [place], PT Coag (PPP) [Time] 11.3 s Normal 9.7-12.9 [facility] Comment on above: Performed By: #### A PTT, PT #### S PATHOLOGY LABORATORY [address], [place], Patient Instructionson 10-01 Off Track Betting Manager Authentication Interface Message Text On the morning of your surgery, please take only the following medications, with a small sip of water: amLODIPine (Norvasc) 5 MG tablet Bromfenac Sodium 0.075 % SOLN atorvastatin (LIPITOR) 20 mg tablet Clobetasol Propionate 0.05 % GEL hydroxychloroquine (PLAQUENIL) 200 MG tablet ofloxacin (OCUFLOX) 0.3 % ophthalmic solution Do not take any Aspirin 7 days before surgery. Do not take any Ibuprofen, Aleve, Advil, or Motrin,Meloxicam,Naprosyn ,Toradaol or any other NSAIDS 3 days before surgery. May take over the counter Acetaminophen (Tylenol) as needed for pain. Please hold all Vitamin E, Blaine 3, fish oil and herbal supplements for 1 week prior to surgery. Please use this CHECKLIST to prepare for your surgery/procedure: Assume that any lab or testing done during your Pre-admission testing appointment is within normal limits unless otherwise contacted. Expect a call from [facility] [employer] one business day prior to surgery for [...] as soon as possible. Refer to your Preparing for Your Surgery/Procedure booklet or [email or web address] if you have questions. Contact the Pre-Admission Testing department at [phone] or your surgeon's office with any questions [...] stay with you after surgery. Please call [employer] if you need transportation assistance or have concerns about going home [phone]. PEDIATRIC or ADOLESCENTS: Parents or a legal [...] of your surgery. Thank you for choosing [facility]; it is our pleasure to care for [...] if you do not feel like it; (more content not included)... 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 Wells Chief Complaint: I'm not sure why I have this appt Assessment Client PMH: Omaira Oliver is a [...] AFTER SURGERY, Disp: , Rfl: nystatin (MYCOSTATIN) [id number] UNIT/ML oral suspension, SWISH 5-10 ML IN MOUTH FOR 30 SECONDS THEN SPIT 5 TIMES PER DAY, Disp: , Rfl: Vitamins/Minerals: Vitamin D3 Biochemical Data/Medical testing/Procedures: No results found for: HBA1C Lipids (last 3 years, up to 8 values) No lab values to display. BMP (last 3 years, up to 8 values) No lab values to display. CBC (last 3 years, up to 8 values) No lab values to display. LFT's (last 3 years, up to 8 values) No lab values to display. Anthropometric Measurements: Weight: 131# Height: 61 BMI: 24.9 UBW: 130# BP Readings from Last 1 Encounters: 09/26/24 132/81 Weight history: Wt Readings from Last 10 Encounters: 09/26/24 129 lb 12.8 oz (58.9 kg) Food/Nutrition-Related History: Appetite: good Supplements: Premier Protein varies % supplement intake: 100% Provides: varies GI Sx: None Urine: Yellow Dentition: Own Teeth Allergies/Intolerance: None 24 Hour Recall: B: chilean muffin with strawberry jam (1) Snack: none L: salad-lettuce/tomato/red pepper/avocado/almonds/ch eese/mayonnaise (1 bowl) Snack: cheese stick (1) D: [...] mile Nutrition Focused Physical Exam: Muscle loss: [place] region: slight depression Clavicle region: not visible/not prominent Scapula region: no depressions Hand: muscle bulges Anterior thigh: well rounded Posterior calf: well developed Fat loss: Orbital region: bulged fat pads Tricep/bicep region: ample fat tissue Rib/back region: chest full/ribs do not show Edema: none Estimated Needs: 6356-6877 kcal/d 30-35 kcal/kg 77-89 g pro/d 1.3-1.5 g pro/kg 1713-9067 mL/d fluid Assessment for Malnutrition: Not at risk for malnutrition 84 y/o F with PMHx of lichen planus. 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 Scheduled for triple endoscopy, partial glossectomy possible flap/graft but likley primary closure vs. secondary intention pending final defect and possible selective neck dissection on 10/13. Pt states that she has been eating well and is currently hungry. Denies any pain or difficulties swallowing. Per WEDGER, swallow is currently WNLs. No noted significant [...] between meals to help meet needs Evaluation: Patient/Retail Gift Card Merchandising verbalized understanding: Yes The patient appears to have good understanding of the instruction given. Referrals: None Tota (more content not included)... Normal The [facility] TYPE AND SCREENon 10-01-2024 ABO and Rh group Nom (Bld) Blood group A Rh(D) positive [facility] ABO and Rh group Nom (Bld) No Previous Results [facility] [employer] Comment on above: Patient does not req uire a 2nd sample drawn prior to surgery date of 10/13/24. Specimen meets Blood Bank's Pre-Surgical Protocol and is valid within 30 days from date of collection but will at midnight on the day of approved Surgery. Blood group antibody screen Ql Negative [facility] ABO and Rh group Nom (Bld) Blood group A Rh(D) positive Normal [email or web address] Comment on above: Performed By: #### T S ####[facility] [id number] [place], [place], ABO and Rh group Nom (Bld) No Previous Results Normal [email or web address] Comment on above: Result Comment: Arely ent does not require a 2nd sample drawn prior to surgery date of 10/13/24. Specimen meets Blood Bank's Pre-Surgical Protocol and is valid within 30 days from date of collection but will at midnight on the day of approved Surgery. Performed By: #### T S ####[facility] [id number] [place], [place], ABSC INT Negative Normal The [facility] Comment on above: Performed By: #### T S ####[facility] [id number] [place], [place], Progress Noteson 09-26-2024 Off Track Betting Manager Authentication Interface Message Text OTOLARYNGOLOGY - HEAD AND NECK SURGERY CLINIC NOTE CHIEF COMPLAINT: Chief Complaint Patient presents with New patient, to establish relationship Tongue issues HPI: Omaira Oliver is a 84 year old female with PMH significant for hx of lichen planus for 10 yrs who presents today, 09/26/2024, at the [facility] at the request of Referring Provider: Juan C Fraser for my opinion and further evaluation of newly diagnosed left lateral tongue SCCa. Today, pt reports 7 month hx of left lateral tongue lesion since January. Recently s/p biopsy with Dr. Arguelles (family resource management specialist) c/w with invasive SCCa. She reports hx [...] smoked. She has never used smokeless tobacco. Medications/Allergies/Imm unizations: Her current medication(s) include: @CMEDLISTP@ Allergies: Cortisone, Meloxicam, and Morphine, Immunizations: There is no immunization history on file for this patient. PHYSICAL EXAM: Vital Signs: BP 132/81 (BP Location: right arm, BP position: sitting, Cuff Size: adult) Pulse 70 Temp 97.9 ???F (36.6 ???C) (Temporal) Resp 18 Ht 5' 1 (1.549 m) Wt 129 lb 12.8 oz [...] hyperactive gag reflex, inadequate mirror visualization Surgeon: Phillip Wells MD was present for the entirety [...] including epiglottis AND glottis were unremarkable. Airway (more content not included)... Normal The [facility] Telephone Encounteron 2023 Off Track Betting Manager Authentication Interface Message Text Reached patient, who is notified of appts on 10/01 for Speech, PAT and nutrition. She will contact dentist to see them for radiation therapy clearance in the event that she needs it. Form sent to patient's dentist. Pelon Palacios RN Normal The [facility] PET/CT Tumor Base -Thigh Ini ton 09-23-2024 PET/CT Tumor Base -Thigh Init [facility] Imaging Services [address] [place] [address] PET/CT Tumor Base -Thigh Init MR#: [id number] Acct: [id number] Name: OMAIRA OLIVER Rep #: [id number] : 1940 F 84 From: Isaias Lopez PCP: Dr. Юлия Conti MD Status: REG CLI Study: PET/CT Tumor Base -Thigh Init Date of Exam: Exam# [id number] Ordering Dr: Juan C Fraser MD [id number] EXAMINATION: FDG-PET/CT ? INDICATIONS: 84-year-old female with a history of head and neck carcinoma, presenting for restaging examination. ? COMPARISON EXAMINATION: None available. ? TECHNIQUE: Following the intravenous administration of 15.33 mCi of F-18 deoxyglucose via the left antecubital fossa, multiplanar image acquisitions of the head, neck, chest, abdomen and pelvis to the level of the midthigh, obtained at one-hour post radiopharmaceutical administration contemporaneously interpreted with the current CT of the chest, abdomen and pelvis dated 09/23/2024 via coregistration reveal: ? SERUM GLUCOSE LEVEL:? 92 mg/dL? HEIGHT:?? 61 inches WEIGHT:?? 130 pounds ? FINDINGS: ? HEAD/NECK:? There is no evidence of abnormal increased glucose metabolism in the pharyngeal mucosal space, parapharyngeal space, oropharynx, bilateral-lateral and anterior neck, hypopharynx and distribution of the larynx. ? The visualized portion of the cerebral cortical-subcortical structures demonstrate symmetric and preserved glucose metabolism. ? CHEST:? There is no quantitative scintigraphic evidence of abnormal increased glucose metabolism within the context of the bilateral hemithorax pulmonary parenchyma, right and left hemithorax at the pleural interface, mediastinal structures, and left-right thoracic perihilum. ? CT of the chest demonstrates the following anatomic characteristics: Atherosclerotic calcification is defined in the thoracic aorta without evidence of dilatation, aneurysm formation.? Calcified and noncalcified parenchymal densities noted in the bilateral hemithorax are ametabolic.? Bilateral axillary and calcified and noncalcified mediastinal and thoracic perihilar soft tissues are nontracer avid.? ? ABDOMEN/PELVIS:? Normal physiologic distribution of the radiopharmaceutical is identified in the hepatic and splenic parenchyma, both renal units, urinary bladder, and visualized intestinal tract.? Diffuse intestinal tract is identified in all four quadrants of the abdominal-pelvic mesentery. ? CT of the abdomen and pelvis is remarkable for the following: Atherosclerotic calcification is defined in the abdominal aorta without evidence of dilatation, aneurysm formation.? Pelvic arterial calcification is observed.? Occasional colonic diverticula are encountered, without evidence of diverticulitis.? Right and left inguinal soft tissue densities are nontracer avid. ? SKELETAL:? There is no evidence of quantitatively significant enhanced glucose metabolism on meticulous inspection of the appendicular and axial skeletal structures. ? Degenerative changes defined in the thoracic and lumbar spine demonstrate no evidence of increased glucose metabolism. There are no sclerotic, mixed sclerotic-lytic, or primarily lytic changes defined in the axial skeletal structures with evidence of increased FDG uptake. ? PET/PET/CT Tumor Base -Thigh Init IMPRESSION: NEGATIVE EXAMINATION.? There is no definitive quantitative scintigraphic evidence of recurrent-metastatic viable neoplasm. Electronic Signature Isaias Escalante D.O. Accurate Quantification of SUVs for this report are calculated using the exclusive [employer]. (U.S. Patent No. [id number], 674, 983 B2 [phone] [place] patent [phone]). Standardization and correction of the FDG SUV metric via [employer] technology allow for vendor non-specific objective quantitative examination comparison and optimization of the sensitivity and specificity of the FDG PET-CT examination. [email or web address] Electronically Signed: Isaias Escalante DO at 8:21 EDT , CC: Dr. Юлия Conti MD; Dr. Juan C Fraser MD Library Paraprofessional: Signed Normal [facility] Telephone Encounteron 2023 Off Track Betting Manager Authentication Interface Message Text Pt called back- she is ok with appt. also made aware to call Kamuela and confirm the PET and CT pt agreed and ok with seeing Dr. Wells on 09/26 Normal The [facility] PT D/C Summary (1)on 024 PT D/C Summary (1) [facility] Physical Therapy [address] [place] [address] / REHABILITATION SERVICES DISCHARGE SUMMARY MR#: [id number] Acct: [id number] Name: OMAIRA OLIVER Rep #: [id number] : 1940 84 From: Sherif Richter PT, ATC Referring Dr.: Dr. Dallas Tomlin DO Status: R EG RCR Insurance: [facility] SELF PAY INSURANCE Discharge Summary D/C summary: It has been my pleasure to treat OMAIRA OLIVER referred by Dr. Dallas Tomlin DO, with the diagnosis of R leg pain for a total of 2 visit(s). Discharge Date: Please see the following information for a summary of their discharge status. Subjective Subjective: Pt reports mild pain today. I almost cancelled Pain R leg pain: Pain Intensity (Out of 10): 2 Objective Objective/Function: Pt gina all Rx well. Pt is now I with HEP Goals Goal 1:: Decrease R knee pain x 50% to aid with sleep Goal 2:: Pt will be able to reciprocally negotiate 10 stairs without difficulty Goal 3:: I with HEP Plan Plan: Discharge to HEP D/C Information d/c sentence: If there are questions or concerns regarding this patient's physical therapy, please feel free to call me at [phone]. Thank you for the referral of this patient. Sincerely, Sherif Richter, PT, ATC Balance/Gait/Functional tests Balance/Special Test Scores Lower Extremity Functional Score: 38 07/01/24 1100 CC: Dr. Юлия Conti MD; Dr. Dallas Tomlin DO [facility] Signed Normal [facility] Absolute lymphocyte countOrd ered By: Dr. Holguin on 02-08-2023 Lymphocytes Auto (Unsp spec) [#/Vol] 0.72 10*3/uL 0.83-4.51 [facility] Basophil percentageOrdered B y: Dr. Holguin on 02-08-2023 Basophils/100 WBC (Bld) 0.1 % 0-1 [facility] Bilirubin [Mass/Vol] 0.80 mg/dL 0.20-1.00 [facility] Comment on above: For patients on eltr ombopag therapy, use of Dimension [place] TBIL is not recommended. Cholesterol [Mass/Vol] 175 mg/dL <200 [facility] Comment on above: <200 mg/dL Desirable 200-240 mg/dL Borderline >240 mg/dL High Risk Eosinophils/100 WBC (Bld) 0.3 % 0-5 [facility] Neutrophils (Bld) [#/Vol] 5.5 10*3/uL 2.0-7.7 [facility] Neutrophils/100 WBC (Bld) 79.5 % 47-70 [facility] Protein [Mass/Vol] 6.7 g/dL 6.4-8.2 [facility] Triglyceride [Mass/Vol] 54 mg/dL <199 [facility] Comment on above: The drugs N-Acetylcy steine and Metamizole may falsely depress this assay.Serum Triglycerides Reference Interval Normal <150 mg/dL Borderline high 150 - 199 mg/dL High 200 - 499 mg/dL Very High > or = 500 mg/dL WBC (Bld) [#/Vol] 6.9 10*3/uL 4.4-11.0 [facility] Blood erythrocytes count (nu mber/volume)Ordered By: Dr. Holguin on 02-08-2023 RBC (Bld) [#/Vol] 3.85 10*6/uL 4.2-5.4 [facility] Blood hemoglobin measurement (mass/volume)Ordered By: Dr. Holguin on 02-08-2023 Hemoglobin (Bld) [Mass/Vol] 11.9 g/dL 12.0-15.0 [facility] Blood lymphocytes/100 leukoc ytesOrdered By: Dr. Holguin on 02-08-2023 Lymphocytes/100 WBC (Bld) 10.4 % 19-41 [facility] Blood monocytes/100 leukocyt esOrdered By: Dr. Holguin on 02-08-2023 Monocytes/100 WBC (Bld) 9.1 % 0-10 [facility] Blood platelet mean volumeOr dered By: Dr. Holguin on 02-08-2023 Platelet mean volume (Bld) [Entitic vol] 10.3 fL 6.2-12.0 [facility] Determination of erythrocyte mean corpuscular volume (MCV)Ordered By: Dr. Holguin on 02-08-2023 MCV (RBC) [Entitic vol] 93.2 fL 81-99 [facility] Direct bilirubinOrdered By: Dr. Holguin on 02-08-2023 Bilirubin.direct [Mass/Vol] 0.26 mg/dL 0.00-0.30 [facility] Hematocrit Auto (Bld) [Volum e fraction]Ordered By: Dr. Holguin on 02-08-2023 Hematocrit (Bld) [Volume fraction] 35.9 % 37-47 [facility] Laboratory - Chemistry and C hemistry - challengeOrdered By: Dr. Holguin on 02-08-2023 ALP [Catalytic activity/Vol] 44 U/L 45-117 [facility] ALT [Catalytic activity/Vol] 26 U/L 13-56 [facility] Globulin (S) [Mass/Vol] 3.0 g/dL 2.2-4.2 [facility] Laboratory - Hematology and Cell countsOrdered By: Dr. Holguin on 02-08-2023 Erythrocyte distribution width (RBC) [Entitic vol] 46.6 fL 35.1-43.9 [facility] Erythrocyte distribution width (RBC) [Ratio] 13.7 % 11.6-14.6 [facility] Immature granulocytes/100 WBC (Bld) 0.600 % 0.0-0.9 [facility] Comment on above: IG% - Immature Granu locytes (promyelocytes, myelocytes and metamyelocytes) > 1% indicates that a LEFT SHIFT is Present. MCH (RBC) [Entitic mass] 30.9 pg 27.0-32.0 [facility] Nucleated RBC/100 WBC (Bld) [Ratio] 0 % 0-5 [facility] MCHC Auto (RBC) [Mass/Vol]Or dered By: Dr. Holguin on 02-08-2023 MCHC (RBC) [Mass/Vol] 33.1 g/dL 32-36 [facility] Platelets bldOrdered By: Dr. Holguin on 02-08-2023 Platelets (Bld) [#/Vol] 293 10*3/uL 150-450 [facility] Serum or plasma albumin pieter urement (mass/volume)Ordered By: Dr. Holguin on 02-08-2023 Albumin [Mass/Vol] 3.7 g/dL 3.2-5.0 [facility] Serum or plasma cholesterol in HDL measurement (mass/volume)Ordered By: Dr. Holguin on 02-08-2023 Cholesterol in HDL [Mass/Vol] 111 mg/dL >40 [facility] Comment on above: The drugs N-Acetylcy steine and Metamizole may falsely depress this assay. Reference Range HDL <40 mg/dL Low HDL Cholesterol HDL >or= 60 mg/dL High HDL Cholesterol Serum or plasma cholesterol in VLDL measurement (mass/volume)Ordered By: Dr. Holguin on 02-08-2023 Cholesterol in VLDL [Mass/Vol] 11 mg/dL 5-40 [facility] Serum or plasma low density lipoprotein (LDL) cholesterol measurement (mass/volume)Ordered By: Dr. Holguin on 02-08-2023 Cholesterol in LDL [Mass/Vol] 53 mg/dL 0-130 [facility] Thin prep Papanicolaou smear with manual screeningOrdered By: Dr. Holguin on 02-08-2023 Thin prep Papanicolaou smear with manual screening 17 U/L 15-37 [facility] Basophil percentageOrdered B y: Dr. Holguin on 01-08-2023 Bilirubin [Mass/Vol] 0.50 mg/dL 0.20-1.00 [facility] Comment on above: For patients on eltr ombopag therapy, use of Dimension Jefferson TBIL is not recommended. Cholesterol [Mass/Vol] 272 mg/dL <200 [facility] Comment on above: <200 mg/dL Desirable 200-240 mg/dL Borderline >240 mg/dL High Risk Glucose [Mass/Vol] 95 mg/dL 74-106 [facility] Protein [Mass/Vol] 6.9 g/dL 6.4-8.2 [facility] Triglyceride [Mass/Vol] 84 mg/dL <199 [facility] Comment on above: The drugs N-Acetylcy steine and Metamizole may falsely depress this assay.Serum Triglycerides Reference Interval Normal <150 mg/dL Borderline high 150 - 199 mg/dL High 200 - 499 mg/dL Very High > or = 500 mg/dL Direct bilirubinOrdered By: Dr. Holguin on 01-08-2023 Bilirubin.direct [Mass/Vol] 0.13 mg/dL 0.00-0.30 [facility] Laboratory - Chemistry and C hemistry - challengeOrdered By: Dr. Holguin on 01-08-2023 ALP [Catalytic activity/Vol] 43 U/L 45-117 [facility] ALT [Catalytic activity/Vol] 27 U/L 13-56 [facility] Globulin (S) [Mass/Vol] 3.3 g/dL 2.2-4.2 [facility] Serum or plasma albumin pieter urement (mass/volume)Ordered By: Dr. Holguin on 01-08-2023 Albumin [Mass/Vol] 3.6 g/dL 3.2-5.0 [facility] Serum or plasma cholesterol in HDL measurement (mass/volume)Ordered By: Dr. Holguin on 01-08-2023 Cholesterol in HDL [Mass/Vol] 110 mg/dL >40 [facility] Comment on above: The drugs N-Acetylcy steine and Metamizole may falsely depress this assay. Reference Range HDL <40 mg/dL Low HDL Cholesterol HDL >or= 60 mg/dL High HDL Cholesterol Serum or plasma cholesterol in VLDL measurement (mass/volume)Ordered By: Dr. Holguin on 01-08-2023 Cholesterol in VLDL [Mass/Vol] 17 mg/dL 5-40 [facility] Serum or plasma low density lipoprotein (LDL) cholesterol measurement (mass/volume)Ordered By: Dr. Holguin on 01-08-2023 Cholesterol in LDL [Mass/Vol] 145 mg/dL 0-130 [facility] Thin prep Papanicolaou smear with manual screeningOrdered By: Dr. Holguin on 01-08-2023 Thin prep Papanicolaou smear with manual screening 19 U/L 15-37 [facility] Whole blood hemoglobin A1c/t otal hemoglobin ratio (mass fraction)Ordered By: Dr. Holguin on 01-08-2023 HbA1c (Bld) [Mass fraction] 5.3 % 3.8-5.6 [facility] Comment on above: Normal < 5.7 % Predi abetic 5.7 - 6.4 % Diabetic >or= 6.5 % Please note range changes. Basophil percentageOrdered B y: Dr. Holguin on 10-05-2022 Bilirubin [Mass/Vol] 0.60 mg/dL 0.20-1.00 [facility] Comment on above: For patients on eltr ombopag therapy, use of Dimension Jefferson TBIL is not recommended. Cholesterol [Mass/Vol] 242 mg/dL <200 [facility] Comment on above: <200 mg/dL Desirable 200-240 mg/dL Borderline >240 mg/dL High Risk Protein [Mass/Vol] 6.9 g/dL 6.4-8.2 [facility] Triglyceride [Mass/Vol] 74 mg/dL <199 [facility] Comment on above: The drugs N-Acetylcy steine and Metamizole may falsely depress this assay.Serum Triglycerides Reference Interval Normal <150 mg/dL Borderline high 150 - 199 mg/dL High 200 - 499 mg/dL Very High > or = 500 mg/dL Direct bilirubinOrdered By: Dr. Holguin on 10-05-2022 Bilirubin.direct [Mass/Vol] 0.13 mg/dL 0.00-0.30 [facility] Laboratory - Chemistry and C hemistry - challengeOrdered By: Dr. Holguin on 10-05-2022 ALP [Catalytic activity/Vol] 53 U/L 45-117 [facility] ALT [Catalytic activity/Vol] 25 U/L 13-56 [facility] Globulin (S) [Mass/Vol] 3.2 g/dL 2.2-4.2 [facility] Serum or plasma albumin pieter urement (mass/volume)Ordered By: Dr. Holguin on 10-05-2022 Albumin [Mass/Vol] 3.7 g/dL 3.2-5.0 [facility] Serum or plasma cholesterol in HDL measurement (mass/volume)Ordered By: Dr. Holguin on 10-05-2022 Cholesterol in HDL [Mass/Vol] 100 mg/dL >40 [facility] Comment on above: The drugs N-Acetylcy steine and Metamizole may falsely depress this assay. Reference Range HDL <40 mg/dL Low HDL Cholesterol HDL >or= 60 mg/dL High HDL Cholesterol Serum or plasma cholesterol in VLDL measurement (mass/volume)Ordered By: Dr. Holguin on 10-05-2022 Cholesterol in VLDL [Mass/Vol] 15 mg/dL 5-40 [facility] Serum or plasma low density lipoprotein (LDL) cholesterol measurement (mass/volume)Ordered By: Dr. Holguin on 10-05-2022 Cholesterol in LDL [Mass/Vol] 127 mg/dL 0-130 [facility] Thin prep Papanicolaou smear with manual screeningOrdered By: Dr. Holguin on 10-05-2022 Thin prep Papanicolaou smear with manual screening 18 U/L 15-37 [facility] Basophil percentageon 2021 Basophil percentage < 0.9 mg/dL 0.55-1.02 [facility] Work Phone: No Panel Informationon 08-31 Bedside Estimated GFR (eGFR) > 60.0000 mL/min >60 [facility] Work Phone: Absolute lymphocyte counton 06-19-2022 Lymphocytes Auto (Unsp spec) [#/Vol] 0.76 10*3/uL 0.83-4.51 [facility] Work Phone: Basophil percentageon 2021 Basophils/100 WBC (Bld) 0.4 % 0-1 [facility] Work Phone: Bilirubin [Mass/Vol] 0.60 mg/dL 0.20-1.00 [facility] Work Phone: Comment on above: For patients on eltr ombopag therapy, use of Dimension Jefferson TBIL is not recommended. Eosinophils/100 WBC (Bld) 1.0 % 0-5 [facility] Work Phone: Neutrophils (Bld) [#/Vol] 3.8 10*3/uL 2.0-7.7 [facility] Work Phone: Neutrophils/100 WBC (Bld) 74.7 % 47-70 [facility] Work Phone: Protein [Mass/Vol] 6.8 g/dL 6.4-8.2 [facility] Work Phone: WBC (Bld) [#/Vol] 5.1 10*3/uL 4.4-11.0 [facility] Work Phone: Blood erythrocytes count (nu mber/volume)on 06-19-2022 RBC (Bld) [#/Vol] 3.64 10*6/uL 4.2-5.4 [facility] Work Phone: Blood hemoglobin measurement (mass/volume)on 06-19-2022 Hemoglobin (Bld) [Mass/Vol] 10.8 g/dL 12.0-15.0 [facility] Work Phone: Blood lymphocytes/100 leukoc yteson 06-19-2022 Lymphocytes/100 WBC (Bld) 15.0 % 19-41 [facility] Work Phone: Blood monocytes/100 leukocyt eson 06-19-2022 Monocytes/100 WBC (Bld) 8.3 % 0-10 [facility] Work Phone: Blood platelet mean volumeon 06-19-2022 Platelet mean volume (Bld) [Entitic vol] 10.4 fL 6.2-12.0 [facility] Work Phone: Determination of erythrocyte mean corpuscular volume (MCV)on 06-19-2022 MCV (RBC) [Entitic vol] 90.9 fL 81-99 [facility] Work Phone: Direct bilirubinon Bilirubin.direct [Mass/Vol] 0.13 mg/dL 0.00-0.30 [facility] Work Phone: Hematocrit Auto (Bld) [Volum e fraction]on 06-19-2022 Hematocrit (Bld) [Volume fraction] 33.1 % 37-47 [facility] Work Phone: Laboratory - Chemistry and C hemistry - challengeon 06-19-2022 ALP [Catalytic activity/Vol] 48 U/L 45-117 [facility] Work Phone: ALT [Catalytic activity/Vol] 20 U/L 13-56 [facility] Work Phone: Globulin (S) [Mass/Vol] 3.3 g/dL 2.2-4.2 [facility] Work Phone: Laboratory - Hematology and Cell countson 06-19-2022 Erythrocyte distribution width (RBC) [Entitic vol] 42.1 fL 35.1-43.9 [facility] Work Phone: Erythrocyte distribution width (RBC) [Ratio] 12.7 % 11.6-14.6 [facility] Work Phone: Immature granulocytes/100 WBC (Bld) 0.600 % 0.0-0.9 [facility] Work Phone: Comment on above: IG% - Immature Granu locytes (promyelocytes, myelocytes and metamyelocytes) > 1% indicates that a LEFT SHIFT is Present. MCH (RBC) [Entitic mass] 29.7 pg 27.0-32.0 [facility] Work Phone: Nucleated RBC/100 WBC (Bld) [Ratio] 0 % 0-5 [facility] Work Phone: MCHC Auto (RBC) [Mass/Vol]on 06-19-2022 MCHC (RBC) [Mass/Vol] 32.6 g/dL 32-36 [facility] Work Phone: Platelets bldon 06-19-2022 Platelets (Bld) [#/Vol] 232 10*3/uL 150-450 [facility] Work Phone: Serum or plasma albumin pieter urement (mass/volume)on 06-19-2022 Albumin [Mass/Vol] 3.5 g/dL 3.2-5.0 [facility] Work Phone: Thin prep Papanicolaou smear with manual screeningon 06-19-2022 Thin prep Papanicolaou smear with manual screening 16 U/L 15-37 [facility] Work Phone: INHOUSE COVID 19 (ONLY) RAPI D ([id number])Ordered By: Shamika Reynolds on 11-29-2021 SARS-CoV-2 (COVID-19) RNA KATTY+probe Ql (Unsp spec) Positive Normal [facility]; [facility] Work Phone: INHOUSE COVID 19 (ONLY) RAPID ([id number]) Positive Normal [facility]; [facility] Work Phone: CALCIFEDIOL ([id number])Ordered B y: Property Staff Accountant on 04-16-2020 25-Hydroxyvitamin D2+25-Hydroxyvitamin D3 [Mass/Vol] 79.1 ng/mL Normal 30.0-100.0 [facility] Work Phone: Comment on above: Vitamin D deficiency has been defined by the [place] ofMedicine and an Endocrine Society practice guideline as alevel of serum 25-OH vitamin D less than 20 ng/mL (1,2).The Endocrine Society went on to further define vitamin Dinsufficiency as a level between 21 and 29 ng/mL (2).1. IOM ([place] of Medicine). 2010. Dietary reference intakes for calcium and D. [place]: The National Academies Press.2. Akash MF, Brittny REYES, Unique CHEUNG, et al. Evaluation, treatment, and prevention of vitamin D deficiency: an Endocrine Society clinical practice guideline. JCEM. 2010; 96(7):1911-30. PATIENT WAS FASTINGP ERFORMED BY: [employer]6[address] G[address]Timebl[address] [place] [id number] CBC, PLATELETS & AUT DIFF ([id number])Ordered By: Property Staff Accountant on 04-16-2020 Basophils (Bld) [#/Vol] 0.0 {x10E3/uL} Normal 0.0-0.2 [facility] Work Phone: Comment on above: PATIENT WAS FASTINGP ERFORMED BY: CB [facility] Mtndjh[address] [place]ius[place] [id number]; ov 04/21 Basophils (Bld) [#/Vol] 0.0 10*3/uL Normal 0.0-0.2 [facility]; [facility] Work Phone: Comment on above: PATIENT WAS FASTINGP ERFORMED BY: [employer] Uxctqk050[address]Dublin [place] [id number]; ov 04/21 Basophils/100 WBC (Bld) 1 % Normal [facility] Work Phone: Comment on above: PATIENT WAS FASTINGP ERFORMED BY: CB [facility] Tlosqb1278 [address] RoadDublin [place] [id number]; ov 5/ Eosinophils (Bld) [#/Vol] 0.2 {x10E3/uL} Normal 0.0-0.4 [facility] Work Phone: Comment on above: PATIENT WAS FASTINGP ERFORMED BY: CB [facility] Uzzacu8522 [address] RoadDublin [place] [id number]; ov 04/21 Eosinophils (Bld) [#/Vol] 0.2 10*3/uL Normal 0.0-0.4 [facility]; [facility] Work Phone: Comment on above: PATIENT WAS FASTINGP ERFORMED BY: [facility] Higcpi3447 [address] RoadDublin [place] [id number]; ov 04/21 Eosinophils/100 WBC (Bld) 3 % Normal [facility] Work Phone: Comment on above: PATIENT WAS FASTINGP ERFORMED BY: [facility] Opokjt0585 [address] Roadblin [place] [id number]; ov 04/21 Erythrocyte distribution width (RBC) [Ratio] 13.1 % Normal 11.7-15.4 [facility] Work Phone: Comment on above: PATIENT WAS FASTINGP ERFORMED BY: [facility] Lpiljo1825 [address] RoadDublin [place] [id number]; ov 04/21 Hematocrit (Bld) [Volume fraction] 34.1 % Normal 34.0-46.6 [facility] Work Phone: Comment on above: PATIENT WAS FASTINGP ERFORMED BY: [facility] Hwomdp2764 [address]Dublin [place] [id number]; ov 04/21 Hemoglobin (Bld) [Mass/Vol] 11.3 g/dL Normal 11.1-15.9 [facility] Work Phone: Comment on above: PATIENT WAS FASTINGP ERFORMED BY: CB [facility] Ujosvo3838 [address]Dublin [place] [id number]; ov 5/ Immature granulocytes (Bld) [#/Vol] 0.0 {x10E3/uL} Normal 0.0-0.1 [facility] Work Phone: Comment on above: PATIENT WAS FASTINGP ERFORMED BY: CB [facility] Avmwgp5324 [address]Dublin [place] [id number]; ov 5/ Immature granulocytes (Bld) [#/Vol] 0.0 10*3/uL Normal 0.0-0.1 [facility]; [facility] Work Phone: Comment on above: PATIENT WAS FASTINGP ERFORMED BY: CB [facility] Ylcgkg1326 [address]Dublin [place] [id number]; ov 04/21 Immature granulocytes/100 WBC (Bld) 0 % Normal [facility] Work Phone: Comment on above: PATIENT WAS FASTINGP ERFORMED BY: CB [facility] Bciigd3757 [address] RoadDublin [place] [id number]; ov 04/21 Lymphocytes (Bld) [#/Vol] 1.4 {x10E3/uL} Normal 0.7-3.1 [facility] Work Phone: Comment on above: PATIENT WAS FASTINGP ERFORMED BY: CB [facility] Rcmpat0841 [address]Dublin [place] [id number]; ov 04/21 Lymphocytes (Bld) [#/Vol] 1.4 10*3/uL Normal 0.7-3.1 [facility]; [facility] Work Phone: Comment on above: PATIENT WAS FASTINGP ERFORMED BY: CB [facility] Sykjbj8577 [address] RoadDublin [place] [id number]; ov 04/21 Lymphocytes/100 WBC (Bld) 26 % Normal [facility] Work Phone: Comment on above: PATIENT WAS FASTINGP ERFORMED BY: CB [facility] Lvxuvd0564 [address]Dublin [place] [id number]; ov 5/ MCH (RBC) [Entitic mass] 30.1 pg Normal 26.6-33.0 [facility] Work Phone: Comment on above: PATIENT WAS FASTINGP ERFORMED BY: [facility] Ttsuwa5564 [address]Dublin [place] [id number]; ov 04/21 MCHC (RBC) [Mass/Vol] 33.1 g/dL Normal 31.5-35.7 [facility] prehensive [facility] Work Phone: Comment on above: PATIENT WAS FASTINGP ERFORMED BY: [facility] Ttxtlb2977 [address]Dublin [place] [id number]; ov 04/21 MCV (RBC) [Entitic vol] 91 fL Normal 79-97 [facility] Work Phone: Comment on above: PATIENT WAS FASTINGP ERFORMED BY: LabCoMatheny Medical and Educational CenterPusnlp[address] [facility] Centerin [place] [id number]; ov 04/21 Monocytes (Bld) [#/Vol] 0.5 {x10E3/uL} Normal 0.1-0.9 [facility] Work Phone: Comment on above: PATIENT WAS FASTINGP ERFORMED BY: Lab[facility] [facility]in [place] [id number]; ov 04/21 Monocytes (Bld) [#/Vol] 0.5 10*3/uL Normal 0.1-0.9 [facility]; [facility] Work Phone: Comment on above: PATIENT WAS FASTINGP ERFORMED BY: [facility] Zryurd[address] [facility] Hospitalblin [place] [id number]; ov 04/21 Monocytes/100 WBC (Bld) 9 % Normal [facility] Work Phone: Comment on above: PATIENT WAS FASTINGP ERFORMED BY: [facility] Alurop4309 [address] [place] [id number]; ov 04/21 Neutrophils (Bld) [#/Vol] 3.3 {x10E3/uL} Normal 1.4-7.0 [facility] Work Phone: Comment on above: PATIENT WAS FASTINGP ERFORMED BY: CB [facility] Sradaw1557 [address]Dublin [place] [id number]; ov 04/21 Neutrophils (Bld) [#/Vol] 3.3 10*3/uL Normal 1.4-7.0 [facility]; [facility] Work Phone: Comment on above: PATIENT WAS FASTINGP ERFORMED BY: CB [facility] Gbpaae4613 [address]Dublin [place] [id number]; ov 04/21 Neutrophils/100 WBC (Bld) 61 % Normal [facility] Work Phone: Comment on above: PATIENT WAS FASTINGP ERFORMED BY: CB [facility] Ggfygq6389 [address]Dublin [place] [id number]; ov 04/21 Platelets (Bld) [#/Vol] 264 {x10E3/uL} Normal 150-450 [facility] Work Phone: Comment on above: PATIENT WAS FASTINGP ERFORMED BY: CB [facility] Rrbuyh5417 [address]Dublin [place] [id number]; ov 04/21 Platelets (Bld) [#/Vol] 264 10*3/uL Normal 150-450 [facility]; [facility] Work Phone: Comment on above: PATIENT WAS FASTINGP ERFORMED BY: CB [facility] Jridhf1221 [address]Dublin [place] [id number]; ov 04/21 RBC (Bld) [#/Vol] 3.75 {x10E6/uL} Abnormal 3.77-5.28 [facility] Work Phone: Comment on above: PATIENT WAS FASTINGP ERFORMED BY: CB [facility] Nmwvcm3716 [address]Dublin [place] [id number]; ov 5 RBC (Bld) [#/Vol] 3.75 10*6/uL Abnormal 3.77-5.28 [facility]; [facility] Work Phone: Comment on above: PATIENT WAS FASTINGP ERFORMED BY: CB [facility] Dzblts4890 [address]Dublin [place] [id number]; ov 04/21 WBC (Bld) [#/Vol] 5.4 {x10E3/uL} Normal 3.4-10.8 [facility] pre[facility]ive [facility] Work Phone: Comment on above: PATIENT WAS FASTINGP ERFORMED BY: OJ [facility] Cejhem9413 [address]Dublin [place] [id number]; ov 04/21 WBC (Bld) [#/Vol] 5.4 10*3/uL Normal 3.4-10.8 [facility]; [facility] Work Phone: Comment on above: PATIENT WAS FASTINGP ERFORMED BY: OJ [facility] Oejgtn1020 [address]Dublin [place] [id number]; ov 04/21 LIPID PANEL ([id number])Ordered B y: Property Staff Accountant on 04-16-2020 Cholesterol [Mass/Vol] 188 mg/dL Normal 100-199 [facility] Work Phone: Comment on above: PATIENT WAS FASTINGP ERFORMED BY: OJ [facility] Wmavko8956 [address]Dublin [place] [id number] Cholesterol in HDL [Mass/Vol] 90 mg/dL Normal [facility] Work Phone: Comment on above: PATIENT WAS FASTINGP ERFORMED BY: OJ [facility] Zoukqi1582 [address]Dublin [place] [id number] Cholesterol in LDL [Mass/Vol] 90 mg/dL Normal 0-99 [facility] Work Phone: Comment on above: PATIENT WAS FASTINGP ERFORMED BY: OJ [facility] Bnxkhf6203 [address]Dublin [place] [id number] Cholesterol in LDL/Cholesterol in HDL [Mass ratio] 1.0 {ratio} Normal 0.0-3.2 [facility] Work Phone: Comment on above: LDL/HDL Ratio Men Wo men 1/2 Avg.Risk 1.0 1.5 Avg.Risk 3.6 3.2 2X Avg.Risk 6.2 5.0 3X Avg.Risk 8.0 6.1 PATIENT WAS FASTINGP ERFORMED BY: OJ [facility] Gtxpih5849 [address]Dublin [place] [id number] Cholesterol in VLDL [Mass/Vol] 8 mg/dL Normal 5-40 [facility] Work Phone: Comment on above: PATIENT WAS FASTINGP ERFORMED BY: OJ LabCocheo Eatzez9248 [address] RoadDublin [place] [id number] Triglyceride [Mass/Vol] 38 mg/dL Normal 0-149 [facility] Work Phone: Comment on above: PATIENT WAS FASTINGP ERFORMED BY: OJ [facility] Vcsrbq9203 [address]Dublin [place] [id number] METABOLIC PANEL, COMPREHENSI VE ([id number])Ordered By: Property Staff Accountant on 04-16-2020 Albumin [Mass/Vol] 4.0 g/dL Normal 3.7-4.7 [facility] Work Phone: Comment on above: PATIENT WAS FASTINGP ERFORMED BY: OJ [facility] Tiaqvq0056 [address] Roadbl[address] [place] [id number] Albumin/Globulin [Mass ratio] 1.6 {ratio} Normal 1.2-2.2 [facility] Work Phone: Comment on above: PATIENT WAS FASTINGP ERFORMED BY: OJ [facility] Vjewhr9659 [address]Dublin [place] [id number] ALP [Catalytic activity/Vol] 47 [iU]/L Normal 39-117 [facility] Work Phone: Comment on above: PATIENT WAS FASTINGP ERFORMED BY: OJ [facility] Wrsjke2058 [address] RoadDublin [place] [id number] ALP [Catalytic activity/Vol] 47 U/L Normal 39-117 [facility]; [facility] Work Phone: Comment on above: PATIENT WAS FASTINGP ERFORMED BY: OJ [facility] Kxcxys1452 [address]Dublin [place] [id number] ALT [Catalytic activity/Vol] 16 [iU]/L Normal 0-32 [facility] Work Phone: Comment on above: PATIENT WAS FASTINGP ERFORMED BY: OJ [facility] Qeubcp9174 [address]Dublin [place] [id number] ALT [Catalytic activity/Vol] 16 U/L Normal 0-32 [facility]; [facility] Work Phone: Comment on above: PATIENT WAS FASTINGP ERFORMED BY: CB [facility] Ajglve9648 [address] [place] [id number] AST [Catalytic activity/Vol] 20 [iU]/L Normal 0-40 [facility] Work Phone: Comment on above: PATIENT WAS FASTINGP ERFORMED BY: [facility] Waqbqn9973 [address]Dublin [place] [id number] AST [Catalytic activity/Vol] 20 U/L Normal 0-40 [facility]; [facility] Work Phone: Comment on above: PATIENT WAS FASTINGP ERFORMED BY: [facility] Fhbdop4396 [address]Dublin [place] [id number] Bilirubin [Mass/Vol] 0.3 mg/dL Normal 0.0-1.2 [facility] Work Phone: Comment on above: PATIENT WAS FASTINGP ERFORMED BY: [facility] Whlpdk9374 [address] [place] [id number] Calcium [Mass/Vol] 9.1 mg/dL Normal 8.7-10.3 [facility] Work Phone: Comment on above: PATIENT WAS FASTINGP ERFORMED BY: [facility] Jkyquv2950 [address]Dublin [place] [id number] Chloride [Moles/Vol] 102 mmol/L Normal 96-106 [facility] Work Phone: Comment on above: PATIENT WAS FASTINGP ERFORMED BY: [facility] Qokcwm7811 [address]Dublin [place] [id number] CO2 [Moles/Vol] 24 mmol/L Normal 20-29 [facility] Work Phone: Comment on above: PATIENT WAS FASTINGP ERFORMED BY: [facility] Wusyaz1905 [address]Dublin [place] [id number] Creatinine [Mass/Vol] 0.94 mg/dL Normal 0.57-1.00 [facility] Work Phone: Comment on above: PATIENT WAS FASTINGP ERFORMED BY: OJ LabCocheo Ukjtvk[address] City Hospitalblin [place] [id number] GFR/1.73 sq M predicted among blacks CKD-EPI (S/P/Bld) [Vol rate/Area] 68 mL/min/1.73 Normal [facility] Work Phone: Comment on above: PATIENT WAS FASTINGP ERFORMED BY: CB [facility] Whcive0326 [address]bl[address] [place] [id number] GFR/1.73 sq M predicted among non-blacks CKD-EPI (S/P/Bld) [Vol rate/Area] 59 mL/min/1.73 Abnormal [facility] Work Phone: Comment on above: PATIENT WAS FASTINGP ERFORMED BY: OJ [facility] Oganhi3158 [address] RoadAtrium Health Waxhawin [place] [id number] Globulin (S) [Mass/Vol] 2.5 g/dL Normal 1.5-4.5 [facility] Internal Medicine Work Phone: Comment on above: PATIENT WAS FASTINGP ERFORMED BY: OJ [facility] Gznnpe0014 [facility] [place] [id number] Glucose [Mass/Vol] 84 mg/dL Normal 65-99 [facility] Internal Medicine Work Phone: Comment on above: PATIENT WAS FASTINGP ERFORMED BY: [facility] Dgkpmi8401 [facility] [id number] Potassium [Moles/Vol] 3.9 mmol/L Normal 3.5-5.2 [facility] Internal Medicine Work Phone: Comment on above: PATIENT WAS FASTINGP ERFORMED BY: [facility] Cmdqhq6185 [facility] [place] [id number] Protein [Mass/Vol] 6.5 g/dL Normal 6.0-8.5 [facility] Internal Medicine Work Phone: Comment on above: PATIENT WAS FASTINGP ERFORMED BY: [facility] [id number] Sodium [Moles/Vol] 140 mmol/L Normal 134-144 Compre hensive Internal Medicine Work Phone: Comment on above: PATIENT WAS FASTINGP ERFORMED BY: [facility]6370 [facility] [id number] Urea nitrogen [Mass/Vol] 19 mg/dL Normal 8-27 [facility] Work Phone: Comment on above: PATIENT WAS FASTINGP ERFORMED BY: [facility]6370 [facility] [id number] Urea nitrogen/Creatinine [Mass ratio] 20 mg/mg Normal 12-28 [facility] Work Phone: Comment on above: PATIENT WAS FASTINGP ERFORMED BY: [facility]6370 [facility] [id number] URINE ARCHIE CULTURE-IDENTIFICA [place] (39327)Ordered By: Property Staff Accountant on 12-19-2019 Bacteria identified Cx Nom (U) NG36 Normal [facility] Work Phone: Comment on above: No growth in 36 - 48 hours. PATIENT NOT FASTINGP ERFORMED BY: [place] 1144770 [facility] [id number] Information: SRC: Bacteria identified Cx Nom (U) Final report Normal [facility] Work Phone: Comment on above: PATIENT NOT FASTINGP ERFORMED BY: [place] 1144770 [facility] [id number] Information: SRC: Urinalysis, Office (38170)Or dered By: Sherri Medina on 12-19-2019 Bilirubin Ql (U) Negative Normal Comprehe nsive Internal Medicine Work Phone: Bilirubin Ql (U) Negative Normal Comprehe nsive Internal Medicine; [facility] Work Phone: Glucose Test strip (U) [Mass/Vol] Negative Normal [facility] Work Phone: Glucose Test strip (U) [Mass/Vol] Negative Normal [facility]; [facility] Work Phone: Hemoglobin Ql (U) Negative Normal Compreh ensive Internal Medicine Work Phone: Hemoglobin Ql (U) Negative Normal Compreh ensive Internal Medicine; [facility] Work Phone: Ketones Ql (U) Negative Normal Comprehens sandra Internal Medicine Work Phone: Ketones Ql (U) Negative Normal Comprehens sandra Internal Medicine; [facility] Work Phone: Leukocyte esterase Test strip Ql (U) Moderate Normal [facility] Work Phone: Nitrite Ql (U) Negative Normal Comprehens sandra Internal Medicine Work Phone: Nitrite Ql (U) Negative Normal Comprehens sandra Internal Medicine; [facility] Work Phone: pH (U) 7 [pH] Normal [facility] Work Phone: Protein Ql (U) Negative Normal Comprehens sandra Internal Medicine Work Phone: Protein Ql (U) Negative Normal Comprehens sandra Internal Medicine; [facility] Work Phone: Specific gravity (U) [Rel density] 1.025 1 Normal [facility] Work Phone: Urobilinogen (24H U) [Mass/Time] Normal Normal [facility] Work Phone: CBC, PLATELETS & AUT DIFF (6 8022)Ordered By: Property Staff Accountant on 09-25-2019 Basophils (Bld) [#/Vol] 0.0 {x10E3/uL} Normal 0.0-0.2 [facility] Work Phone: Comment on above: PATIENT NOT FASTINGP ERFORMED BY: OJ [facility] Yvvcfw1167 [facility] [id number] BY: MANDEEP [facility] [address] [id number] Basophils (Bld) [#/Vol] 0.0 10*3/uL Normal 0.0-0.2 [facility]; [facility] Work Phone: Comment on above: PATIENT NOT FASTINGP ERFORMED BY: OJ [facility] Onlgnd8177 [facility] [id number] BY: [place] [id number] Basophils/100 WBC (Bld) 0 % Normal [facility] Work Phone: Comment on above: PATIENT NOT FASTINGP ERFORMED BY: [facility] Kbpsfd6239 [facility] [id number] BY: [address] [id number] Eosinophils (Bld) [#/Vol] 0.1 {x10E3/uL} Normal 0.0-0.4 [facility] Work Phone: Comment on above: PATIENT NOT FASTINGP ERFORMED BY: [facility] Bnlinr6976 [facility] [id number] BY: [place] [id number] Eosinophils (Bld) [#/Vol] 0.1 10*3/uL Normal 0.0-0.4 [facility]; [facility] Work Phone: Comment on above: PATIENT NOT FASTINGP ERFORMED BY: OJ [facility] Brsoao0802 [facility] [id number] BY: [address] [id number] Eosinophils/100 WBC (Bld) 2 % Normal [facility] Work Phone: Comment on above: PATIENT NOT FASTINGP ERFORMED BY: [facility] Slrsyu7096 [facility] [id number] BY: [address] [id number] Erythrocyte distribution width (RBC) [Ratio] 13.9 % Normal 12.3-15.4 [facility] Work Phone: Comment on above: PATIENT NOT FASTINGP ERFORMED BY: [facility] Mcsssv8902 [facility] [id number] BY: [employer] [id number] Hematocrit (Bld) [Volume fraction] 34.5 % Normal 34.0-46.6 [facility] Work Phone: Comment on above: PATIENT NOT FASTINGP ERFORMED BY: OJ [facility] Wbiffb4525 [facility] [id number] BY: [address] [id number] Hemoglobin (Bld) [Mass/Vol] 11.1 g/dL Normal 11.1-15.9 [facility] Work Phone: Comment on above: PATIENT NOT FASTINGP ERFORMED BY: OJ [facility] Aflomf1871 [facility] [id number] BY: [address] [id number] Immature granulocytes (Bld) [#/Vol] 0.0 {x10E3/uL} Normal 0.0-0.1 [facility] Work Phone: Comment on above: PATIENT NOT FASTINGP ERFORMED BY: OJ [facility] Veefqw0010 [facility] [id number] BY: [address] [id number] Immature granulocytes (Bld) [#/Vol] 0.0 10*3/uL Normal 0.0-0.1 [facility]; [facility] Work Phone: Comment on above: PATIENT NOT FASTINGP ERFORMED BY: OJ [facility] Iufjlz6190 [facility] [id number] BY: [address] [id number] Immature granulocytes/100 WBC (Bld) 0 % Normal [facility] Work Phone: Comment on above: PATIENT NOT FASTINGP ERFORMED BY: OJ [facility] Wrcjct8025 [facility] [id number] BY: [facility] [address] [id number] Lymphocytes (Bld) [#/Vol] 1.3 {x10E3/uL} Normal 0.7-3.1 [facility] Work Phone: Comment on above: PATIENT NOT FASTINGP ERFORMED BY: OJ [facility] Ygryoz9364 [facility] [id number] BY: [facility] [address] [id number] Lymphocytes (Bld) [#/Vol] 1.3 10*3/uL Normal 0.7-3.1 [facility]; [facility] Work Phone: Comment on above: PATIENT NOT FASTINGP ERFORMED BY: OJ [facility] Kjwiun9198 [facility] [id number] BY: LabCo[address] [id number] Lymphocytes/100 WBC (Bld) 22 % Normal [facility] Work Phone: Comment on above: PATIENT NOT FASTINGP ERFORMED BY: OJ [facility] Qahpia5223 [facility] [id number] BY: LabCo[address] [id number] MCH (RBC) [Entitic mass] 29.2 pg Normal 26.6-33.0 [facility] Internal Medicine Work Phone: Comment on above: PATIENT NOT FASTINGP ERFORMED BY: OJ [facility] Ytjhun8656 [facility] [id number] BY: [facility] [address] [id number] MCHC (RBC) [Mass/Vol] 32.2 g/dL Normal 31.5-35.7 [facility] Internal Medicine Work Phone: Comment on above: PATIENT NOT FASTINGP ERFORMED BY: OJ [facility] Yhdiix7671 [facility] [id number] BY: LabCo[address] [id number] MCV (RBC) [Entitic vol] 91 fL Normal 79-97 [facility] Work Phone: Comment on above: PATIENT NOT FASTINGP ERFORMED BY: OJ [facility] Izfqtp3874 [facility] [id number] BY: [address] [id number] Monocytes (Bld) [#/Vol] 0.4 {x10E3/uL} Normal 0.1-0.9 [facility] Work Phone: Comment on above: PATIENT NOT FASTINGP ERFORMED BY: OJ [facility] Mnbhgl0318 [facility] [id number] BY: LabCo[address] [id number] Monocytes (Bld) [#/Vol] 0.4 10*3/uL Normal 0.1-0.9 [facility]; [facility] Work Phone: Comment on above: PATIENT NOT FASTINGP ERFORMED BY: OJ [facility] Irkagn2742 [facility] [id number] BY: Lab[address] [id number] Monocytes/100 WBC (Bld) 7 % Normal [facility] Work Phone: Comment on above: PATIENT NOT FASTINGP ERFORMED BY: OJ [facility] Dvedyc7533 [facility] [id number] BY: [facility] [address] [id number] Neutrophils (Bld) [#/Vol] 4.1 {x10E3/uL} Normal 1.4-7.0 [facility] Work Phone: Comment on above: PATIENT NOT FASTINGP ERFORMED BY: CB [facility] Xeucba1874 [facility] [id number] BY: Lab[address] [id number] Neutrophils (Bld) [#/Vol] 4.1 10*3/uL Normal 1.4-7.0 [facility]; [facility] Work Phone: Comment on above: PATIENT NOT FASTINGP ERFORMED BY: CB [facility] Cduwzv4902 [facility] [place] [id number] BY: LabCo[address] [id number] Neutrophils/100 WBC (Bld) 69 % Normal [facility] Work Phone: Comment on above: PATIENT NOT FASTINGP ERFORMED BY: CB [facility] Otwyqi1316 [facility] [id number] BY: [facility] [address] [id number] Platelets (Bld) [#/Vol] 226 {x10E3/uL} Normal 150-450 [facility] Internal Medicine Work Phone: Comment on above: PATIENT NOT FASTINGP ERFORMED BY: CB [facility] Vsdvuf9960 [facility] [id number] BY: [facility] [address] [id number] Platelets (Bld) [#/Vol] 226 10*3/uL Normal 150-450 [facility]; [facility] Work Phone: Comment on above: PATIENT NOT FASTINGP ERFORMED BY: CB [facility] Tmhywl3963 [facility] [id number] BY: [facility] [address] [id number] RBC (Bld) [#/Vol] 3.80 {x10E6/uL} Normal 3.77-5.28 [facility] Internal Medicine Work Phone: Comment on above: PATIENT NOT FASTINGP ERFORMED BY: CB [facility] Xdirmf1098 [facility] [place] [id number] BY: [facility] [address] [id number] RBC (Bld) [#/Vol] 3.80 10*6/uL Normal 3.77-5.28 [facility] Work Phone: Comment on above: PATIENT NOT FASTINGP ERFORMED BY: OJ [facility] Clxloj9151 Syl[address] RoadDublin [place] [id number] BY: [employer] [id number] WBC (Bld) [#/Vol] 6.0 {x10E3/uL} Normal 3.4-10.8 [facility] Internal Medicine Work Phone: Comment on above: PATIENT NOT FASTINGP ERFORMED BY: OJ [facility] Vfvmdp7949 Syl[address] RoadDuin [place] [id number] BY: LabThe [employer] Organization[address] [id number] WBC (Bld) [#/Vol] 6.0 10*3/uL Normal 3.4-10.8 [facility] Internal Medicine; [facility] Work Phone: Comment on above: PATIENT NOT FASTINGP ERFORMED BY: OJ [facility] Cjajei5524 [facility] [place] [id number] BY: [employer] [id number] FERRITIN ([id number])Ordered By: Property Staff Accountant on 09-25-2019 Ferritin [Mass/Vol] 58 ng/mL Normal 15-150 [facility] Internal Medicine Work Phone: Comment on above: PATIENT NOT FASTINGP ERFORMED BY: JO [facility] Lrmccl7263 [facility] [place] [id number] BY: [employer] [id number] FOLIC ACID SERUM (87861)Orde red By: Property Staff Accountant on 09-25-2019 Folate [Mass/Vol] 6.7 ng/mL Normal [facility] Internal Medicine Work Phone: Comment on above: A serum folate anjali ntration of less than 3.1 ng/mL isconsidered to represent clinical deficiency. PATIENT NOT FASTINGP ERFORMED BY: OJ [facility] Hygyjl6171 [address] RoadDublin [place] [id number] BY: [facility] [address] [id number] HAPTOGLOBIN (01646)Ordered B y: Property Staff Accountant on 09-25-2019 Haptoglobin [Mass/Vol] 84 mg/dL Normal 34-200 [facility] Work Phone: Comment on above: PATIENT NOT FASTINGP ERFORMED BY: CB [facility] Mwqozb4871 Sylev[address] RoadDublin [place] [id number] BY: [facility] [id number] IRON BINDING CAPACITY (TIBC) (76692)Ordered By: Property Staff Accountant on 09-25-2019 Iron [Mass/Vol] 87 ug/dL Normal 27-139 [facility] Internal Medicine Work Phone: Comment on above: PATIENT NOT FASTINGP ERFORMED BY: CB [facility] Mpnnft9735 [address] RoadDublin [place] [id number] BY: [facility] [id number] Iron binding capacity [Mass/Vol] 308 ug/dL Normal 250-450 [facility] Work Phone: Comment on above: PATIENT NOT FASTINGP ERFORMED BY: CB [facility] Yeqwbu3404 [address] RoadDublin [place] [id number] BY: [facility] [address] [id number] Iron binding capacity.unsaturated [Mass/Vol] 221 ug/dL Normal 118-369 [facility] Work Phone: Comment on above: PATIENT NOT FASTINGP ERFORMED BY: CB [facility] Awqhan3944 [address] RoadDublin [place] [id number] BY: BN [facility] [address] [id number] Iron saturation [Mass fraction] 28 % Normal 15-55 [facility] Work Phone: Comment on above: PATIENT NOT FASTINGP ERFORMED BY: CB [facility] Qdhrzt8121 [facility] [id number] BY: Lab[address] [id number] LDH (LD) (LACTATE DEHYDROGEN ASE) (13030)Ordered By: Property Staff Accountant on 09-25-2019 LDH [Catalytic activity/Vol] 201 [iU]/L Normal 119-226 [facility] Work Phone: Comment on above: PATIENT NOT FASTINGP ERFORMED BY: CB [facility] Oxipov2718 [facility] [id number] BY: [address] [id number] LDH [Catalytic activity/Vol] 201 U/L Normal 119-226 [facility]; [facility] Work Phone: Comment on above: PATIENT NOT FASTINGP ERFORMED BY: [facility] Ptmulj3057 [facility] [id number] BY: [address] [id number] RETICULOCYTE COUNT [facility] (85 044)Ordered By: Property Staff Accountant on 09-25-2019 Reticulocytes/100 RBC (Bld) 1.3 % Normal 0.6-2.6 [facility] Work Phone: Comment on above: PATIENT NOT FASTINGP ERFORMED BY: [facility] Antheb7005 [facility] [id number] BY: Lab[address] [id number] SPEP (51502)Ordered By: Emergency [employer] em Staffing Administrator on 09-25-2019 Albumin [Mass/Vol] 3.6 g/dL Normal 2.9-4.4 [facility] Internal Medicine Work Phone: Comment on above: PATIENT NOT FASTINGP ERFORMED BY: [facility] Fvedhc7476 [facility] [id number] BY: [address] [id number] Albumin/Globulin [Mass ratio] 1.2 {ratio} Normal 0.7-1.7 [facility] Work Phone: Comment on above: PATIENT NOT FASTINGP ERFORMED BY: [facility] Ysmlpt6116 [facility] [id number] BY: Lab[address] [id number] Alpha 1 globulin Elph [Mass/Vol] 0.2 g/dL Normal 0.0-0.4 [facility] Work Phone: Comment on above: PATIENT NOT FASTINGP ERFORMED BY: CB [facility] Mpzmso6366 [facility] [id number] BY: Lab[address] [id number] Alpha 2 globulin Elph [Mass/Vol] 0.7 g/dL Normal 0.4-1.0 [facility] Work Phone: Comment on above: PATIENT NOT FASTINGP ERFORMED BY: [facility] Ogzxys6938 [facility] [id number] BY: Lab[address] [id number] Beta globulin Elph [Mass/Vol] 1.1 g/dL Normal 0.7-1.3 [facility] Work Phone: Comment on above: PATIENT NOT FASTINGP ERFORMED BY: [facility] Eswlez6644 [facility] [id number] BY: [facility]Co[address] [id number] Gamma globulin Elph [Mass/Vol] 1.0 g/dL Normal 0.4-1.8 [facility] Work Phone: Comment on above: PATIENT NOT FASTINGP ERFORMED BY: CB [facility] Ewoxfd5359 [facility] [id number] BY: [address] [id number] Globulin (S) [Mass/Vol] 3.1 g/dL Normal 2.2-3.9 [facility] Work Phone: Comment on above: PATIENT NOT FASTINGP ERFORMED BY: [facility] Vmvztm1223 [facility] [id number] BY: [address] [id number] Laboratory report . Normal Compreh ensive Internal Medicine Work Phone: Comment on above: PATIENT NOT FASTINGP ERFORMED BY: CB [facility] Dfonnq8952 [facility] [id number] BY: [address] [id number] Protein [Mass/Vol] 6.7 g/dL Normal 6.0-8.5 [facility] Internal Medicine Work Phone: Comment on above: PATIENT NOT FASTINGP ERFORMED BY: [facility] Qdwase9435 [facility] [id number] BY: [address] [id number] Protein.monoclonal Elph [Mass/Vol] Not Observed Normal [facility] Work Phone: Comment on above: PATIENT NOT FASTINGP ERFORMED BY: CB [facility] Knecyu7639 [facility] [id number] BY: [address] [id number] Soluble Transferrin Receptor (20191)Ordered By: Property Staff Accountant on 09-25-2019 Transferrin receptor.soluble [Moles/Vol] 16.1 nmol/L Normal 12.2-27.3 [facility] Work Phone: Comment on above: PATIENT NOT FASTINGP ERFORMED BY: CB [facility] Oipsmi1677 [facility] [id number] BY: [address] [id number] UPEP (83314)Ordered By: Syst em Staffing Administrator on 09-25-2019 Albumin Elph (U) [Mass fraction] 37.5 % Normal [facility] Work Phone: Comment on above: PATIENT NOT FASTINGP ERFORMED BY: [facility] Cihpul7169 [facility] [id number] BY: [address] [id number] Alpha 1 globulin Elph (U) [Mass fraction] 2.1 % Normal Comprehensiv e Internal Medicine Work Phone: Comment on above: PATIENT NOT FASTINGP ERFORMED BY: [facility] Voukza3044 [facility] [id number] BY: [address] [id number] Alpha 2 globulin Elph (U) [Mass fraction] 7.7 % Normal Comprehensiv e Internal Medicine Work Phone: Comment on above: PATIENT NOT FASTINGP ERFORMED BY: [facility] Lprpot4996 [facility] [id number] BY: [address] [id number] Beta globulin Elph (U) [Mass fraction] 33.8 % Normal Comprehensiv e Internal Medicine Work Phone: Comment on above: PATIENT NOT FASTINGP ERFORMED BY: [facility] Rnzyzh9301 [facility] [id number] BY: [address] [id number] Gamma globulin Elph (U) [Mass fraction] 19.0 % Normal Comprehensiv e Internal Medicine Work Phone: Comment on above: PATIENT NOT FASTINGP ERFORMED BY: [facility] Fuzguf9878 [facility] [id number] BY: [address] [id number] Laboratory comment Edil (Report) [facility] [[email or web address]] Normal [facility] Work Phone: Comment on above: Protein electrophore sis scan will follow via computer, mail, orcourier delivery. PATIENT NOT FASTINGP ERFORMED BY: OJ [facility] Rlfmom5593 [facility] [id number] BY: [address] [id number] Protein (U) [Mass/Vol] 5.1 mg/dL Normal [facility] Work Phone: Comment on above: PATIENT NOT FASTINGP ERFORMED BY: CB [facility] Nzlwkx1308 [facility] [place] [id number] BY: [facility] [address] [id number] Protein.monoclonal Elph (U) [Mass fraction] Not Observed Normal [facility] Work Phone: Comment on above: PATIENT NOT FASTINGP ERFORMED BY: CB [facility] Zuinrz4896 [facility] [id number] BY: Lab[address] [id number] VITAMIN B-12 (CYANOCOBALAMIN ) (13182)Ordered By: Property Staff Accountant on 09-25-2019 Cobalamin (Vitamin B12) [Mass/Vol] 324 pg/mL Normal 232-1245 [facility] Work Phone: Comment on above: PATIENT NOT FASTINGP ERFORMED BY: CB [facility] Uemfkj9873 [facility] [id number] BY: [address] [id number] FECAL OCCULT- Tubes sent zachary e ([id number])on 09-24-2019 Hemoglobin.gastrointe stinal Ql (Stl) Negative Normal [facility] Work Phone: FECAL OCCULT- Tubes sent zachary e ([phone])Ordered By: Julio Wang on 09-24-2019 Hemoglobin.gastrointe stinal Ql (Stl) Negative Normal [facility]; [facility] Work Phone: CBC & PLATELETS (AUTO) ([phone])Ordered By: Property Staff Accountant on 09-23-2019 Erythrocyte distribution width (RBC) [Ratio] 14.0 % Normal 12.3-15.4 [facility] Work Phone: Comment on above: fax to dr.shane naman guerra; A courtesy copy of this report has been sent to [phone] NOT FASTINGPERFORMED BY: CB [facility] Fquubc4185 [address] RoadDublin [place] [id number] Hematocrit (Bld) [Volume fraction] 31.5 % Abnormal 34.0-46.6 [facility] Internal Medicine Work Phone: Comment on above: fax to dr.shane naman guerra; A courtesy copy of this report has been sent to [phone] NOT FASTINGPERFORMED BY: CB [facility] Rezzeg6113 [address] RoadDublin [place] [id number] Hemoglobin (Bld) [Mass/Vol] 10.6 g/dL Abnormal 11.1-15.9 [facility] Internal Medicine Work Phone: Comment on above: fax to dr.shane naman guerra; A courtesy copy of this report has been sent to [phone] NOT FASTINGPERFORMED BY: CB [facility] Yxjuhi1330 [address] RoadAt[facility] Health [place]in [place] [id number] MCH (RBC) [Entitic mass] 29.6 pg Normal 26.6-33.0 [facility] Internal Medicine Work Phone: Comment on above: fax to dr.shane naman guerra; A courtesy copy of this report has been sent to [phone] NOT FASTINGPERFORMED BY: CB [facility] Kaggne4684 [address] [place] [id number] MCHC (RBC) [Mass/Vol] 33.7 g/dL Normal 31.5-35.7 [facility] Internal Medicine Work Phone: Comment on above: fax to dr.shane naman guerra; A courtesy copy of this report has been sent to [phone] NOT FASTINGPERFORMED BY: CB [facility] Lzxpma9051 Syl[address] RoadDublin [place] [id number] MCV (RBC) [Entitic vol] 88 fL Normal 79-97 [facility] Internal Medicine Work Phone: Comment on above: fax to dr.shane naman guerra; A courtesy copy of this report has been sent to [phone] NOT FASTINGPERFORMED BY: CB [facility] Tmizkc9257 [facility] [id number] Platelets (Bld) [#/Vol] 237 {x10E3/uL} Normal 150-450 [facility] Internal Medicine Work Phone: Comment on above: fax to dr.shane naman guerra; A courtesy copy of this report has been sent to [phone] NOT FASTINGPERFORMED BY: CB [facility] Pjjclh5018 [facility] [id number] Platelets (Bld) [#/Vol] 237 10*3/uL Normal 150-450 [facility] Internal Medicine; [facility] Internal Medicine Work Phone: Comment on above: fax to dr.shane naman guerra; A courtesy copy of this report has been sent to [phone] NOT FASTINGPERFORMED BY: CB [facility] Tithhk1946 [facility] [id number] RBC (Bld) [#/Vol] 3.58 {x10E6/uL} Abnormal 3.77-5.28 [facility] Internal Medicine Work Phone: Comment on above: fax to dr.shane naman guerra; A courtesy copy of this report has been sent to [phone] NOT FASTINGPERFORMED BY: CB [facility] Sofsqs2417 [facility] [id number] RBC (Bld) [#/Vol] 3.58 10*6/uL Abnormal 3.77-5.28 [facility] Internal Medicine; [facility] Internal Medicine Work Phone: Comment on above: fax to dr.shane naman guerra; A courtesy copy of this report has been sent to [phone] NOT FASTINGPERFORMED BY: CB [facility] Akqirt0736 [facility] [id number] WBC (Bld) [#/Vol] 7.1 {x10E3/uL} Normal 3.4-10.8 [facility] Internal Medicine Work Phone: Comment on above: fax to dr.shane naman guerra; A courtesy copy of this report has been sent to [phone] NOT FASTINGPERFORMED BY: LabThe [employer] Organization Lkvoui7577 [facility] [place] [id number] WBC (Bld) [#/Vol] 7.1 10*3/uL Normal 3.4-10.8 [facility] Internal Medicine; [facility] Work Phone: Comment on above: fax to dr.shane naman guerra; A courtesy copy of this report has been sent to [phone] NOT FASTINGPERFORMED BY: [facility] Rrkvxo4902 [facility] [place] [id number] HEPATIC FUNCTION PANEL (8007 6)Ordered By: Property Staff Accountant on 09-23-2019 Albumin [Mass/Vol] 4.2 g/dL Normal 3.5-4.8 [facility] Internal Medicine Work Phone: Comment on above: fax to dr. bertin fox; A courtesy copy of this report has been sent to [phone] NOT FASTINGPERFORMED BY: [facility] Efczmn7885 [facility] [place] [id number] ALP [Catalytic activity/Vol] 51 [iU]/L Normal 39-117 [facility] Internal Medicine Work Phone: Comment on above: fax to dr. bertin fox; A courtesy copy of this report has been sent to [phone] NOT FASTINGPERFORMED BY: CB [facility] Mrivmq9142 [address] RoadDublin [place] [id number] ALP [Catalytic activity/Vol] 51 U/L Normal 39-117 [email or web address] Internal [facility] Work Phone: Comment on above: fax to dr. bertin fox; A courtesy copy of this report has been sent to [phone] NOT FASTINGPERFORMED BY: CB [facility] Yrnhsf8570 [address] RoadDublin [place] [id number] ALT [Catalytic activity/Vol] 13 [iU]/L Normal 0-32 [facility] Work Phone: Comment on above: fax to dr. bertin fox; A courtesy copy of this report has been sent to [phone] NOT FASTINGPERFORMED BY: CB [facility] Tygfof1844 [address] RoadDublin [place] [id number] ALT [Catalytic activity/Vol] 13 U/L Normal 0-32 [facility]; [facility] Work Phone: Comment on above: fax to dr. bertin fox; A courtesy copy of this report has been sent to [phone] NOT FASTINGPERFORMED BY: CB [facility] Yehetu3828 [address] RoadDublin [place] [id number] AST [Catalytic activity/Vol] 13 [iU]/L Normal 0-40 [facility] Work Phone: Comment on above: fax to dr. bertin fox; A courtesy copy of this report has been sent to [phone] NOT FASTINGPERFORMED BY: CB [facility] Ieuaxb3030 [address] RoadDublin [place] [id number] AST [Catalytic activity/Vol] 13 U/L Normal 0-40 [facility]; [facility] Work Phone: Comment on above: fax to dr. bertin fox; A courtesy copy of this report has been sent to [phone] NOT FASTINGPERFORMED BY: CB [facility] Dihxbn2297 [address] RoadDublin [place] [id number] Bilirubin [Mass/Vol] 0.4 mg/dL Normal 0.0-1.2 [facility] Internal Medicine Work Phone: Comment on above: fax to dr. bertin fox; A courtesy copy of this report has been sent to [phone] NOT FASTINGPERFORMED BY: CB [facility] Ktcwjh3777 [address] RoadDublin [place] [id number] Bilirubin.direct [Mass/Vol] 0.12 mg/dL Normal 0.00-0.40 [facility] Work Phone: Comment on above: fax to dr. bertin fox; A courtesy copy of this report has been sent to [phone] NOT FASTINGPERFORMED BY: CB [facility] Ydrppf5424 [address] RoadDublin [place] [id number] Protein [Mass/Vol] 6.7 g/dL Normal 6.0-8.5 [facility] Internal Medicine Work Phone: Comment on above: fax to dr. bertin fox; A courtesy copy of this report has been sent to [phone] NOT FASTINGPERFORMED BY: CB [facility] Wounmf0806 [address] RoadDublin [place] [id number] METABOLIC PANEL, BASIC (1844 8)Ordered By: Property Staff Accountant on 09-23-2019 Calcium [Mass/Vol] 9.1 mg/dL Normal 8.7-10.3 [facility] Internal Medicine Work Phone: Comment on above: fax to Dr.Shane Naman guerra; A courtesy copy of this report has been sent to [phone] NOT FASTINGPERFORMED BY: CB [facility] Obgpqq9593 [address] RoadDublin [place] [id number] Chloride [Moles/Vol] 105 mmol/L Normal 96-106 [facility] Internal Medicine Work Phone: Comment on above: fax to Dr.Shane Naman guerra; A courtesy copy of this report has been sent to [phone] NOT FASTINGPERFORMED BY: CB [facility] Yruzaa8329 [address] RoadDublin [place] [id number] CO2 [Moles/Vol] 24 mmol/L Normal 20-29 [facility] Internal Medicine Work Phone: Comment on above: fax to Dr.Shane Naman guerra; A courtesy copy of this report has been sent to [phone] NOT FASTINGPERFORMED BY: CB [facility] Eycuue5096 [address] RoadDublin [place] [id number] Creatinine [Mass/Vol] 0.89 mg/dL Normal 0.57-1.00 [facility] Internal Medicine Work Phone: Comment on above: fax to Dr.Shane Naman guerra; A courtesy copy of this report has been sent to [phone] NOT FASTINGPERFORMED BY: CB [facility] Xtimta[address] [facility] [place] [id number] GFR/1.73 sq M predicted among blacks CKD-EPI (S/P/Bld) [Vol rate/Area] 72 mL/min/1.73 Normal [facility] Work Phone: Comment on above: fax to Dr.Shane Naman guerra; A courtesy copy of this report has been sent to [phone] NOT FASTINGPERFORMED BY: CB [facility] Phcawo1466 [facility] [place] [id number] GFR/1.73 sq M predicted among non-blacks CKD-EPI (S/P/Bld) [Vol rate/Area] 63 mL/min/1.73 Normal [facility] Internal Medicine Work Phone: Comment on above: fax to Dr.Shane Naman guerra; A courtesy copy of this report has been sent to [phone] NOT FASTINGPERFORMED BY: CB [facility] Zngodq0776 [facility] [id number] Glucose [Mass/Vol] 83 mg/dL Normal 65-99 [facility] Internal Medicine Work Phone: Comment on above: fax to Dr.Shane Naman guerra; A courtesy copy of this report has been sent to [phone] NOT FASTINGPERFORMED BY: CB [facility] Zjulub1243 [facility] [id number] Potassium [Moles/Vol] 4.1 mmol/L Normal 3.5-5.2 [facility] Internal Medicine Work Phone: Comment on above: fax to Dr.Shane Naman guerra; A courtesy copy of this report has been sent to [phone] NOT FASTINGPERFORMED BY: CB [facility] Iqjwct9309 [address] RoadAtrium Health [place]in [place] [id number] Sodium [Moles/Vol] 141 mmol/L Normal 134-144 [facility] Internal Medicine Work Phone: Comment on above: fax to Dr.Shane Naman guerra; A courtesy copy of this report has been sent to [phone] NOT FASTINGPERFORMED BY: CB [facility] Vnyobe1996 [address] RoadDublin [place] [id number] Urea nitrogen [Mass/Vol] 22 mg/dL Normal 8-27 [facility] Internal Medicine Work Phone: Comment on above: fax to Dr.Shane Naman guerra; A courtesy copy of this report has been sent to [phone] NOT FASTINGPERFORMED BY: CB [facility] Uxaosr7077 [address] RoadDublin [place] [id number] Urea nitrogen/Creatinine [Mass ratio] 25 mg/mg Normal 12-28 [facility] Internal Medicine Work Phone: Comment on above: fax to Dr.Shane Naman guerra; A courtesy copy of this report has been sent to [phone] NOT FASTINGPERFORMED BY: CB [facility] Dnxlug8131 [address] RoadDublin [place] [id number] HEPATIC FUNCTION PANEL (8007 6)Ordered By: Property Staff Accountant on 05-08-2019 Albumin mass conc 4.4 g/dL Normal 3.5-4.8 [facility] Internal Medicine Work Phone: Comment on above: PATIENT WAS FASTINGP ERFORMED BY: [employer] LabThe Kimberly Organizationrp Rnhbrgtwix0972 [facility] [id number] BY: CB [facility] Irehyr5158 [address] RoadDublin [place] [id number] ALP [Catalytic activity/Vol] 56 U/L Normal 39-117 [facility] Internal Medicine; [facility] Internal Medicine Work Phone: Comment on above: PATIENT WAS FASTINGP ERFORMED BY: [employer] LabThe Kimberly Organizationrp Fkdekjyafg183[address] [id number] BY: CB [facility] Daabdy9000 [address] RoadDublin [place] [id number] ALP enzyme act/vol 56 [iU]/L Normal 39-117 [facility] Internal Medicine Work Phone: Comment on above: PATIENT WAS FASTINGP ERFORMED BY: LabCo[address] [id number] BY: [facility] Myjxfx9881 [address] RoadDublin [place] [id number] ALT [Catalytic activity/Vol] 11 U/L Normal 0-32 [facility]; [facility] Internal Medicine Work Phone: Comment on above: PATIENT WAS FASTINGP ERFORMED BY: [facility] [address] [id number] BY: CB [facility] Wabqgv6198 [address] RoadDublin [place] [id number] ALT enzyme act/vol 11 [iU]/L Normal 0-32 [facility] Internal Medicine Work Phone: Comment on above: PATIENT WAS FASTINGP ERFORMED BY: Lab[address] [id number] BY: [facility] Ujlnvf8914 [address] RoadDublin [place] [id number] AST [Catalytic activity/Vol] 19 U/L Normal 0-40 [facility]; [facility] Internal Medicine Work Phone: Comment on above: PATIENT WAS FASTINGP ERFORMED BY: Lab[address] [id number] BY: [facility] Ftotun8076 [address] RoadDublin [place] [id number] AST enzyme act/vol 19 [iU]/L Normal 0-40 [facility] Internal Medicine Work Phone: Comment on above: PATIENT WAS FASTINGP ERFORMED BY: LabCo[address] [id number] BY: [facility] Oiguur7256 [address] RoadDublin [place] [id number] Bilirubin mass conc 0.6 mg/dL Normal 0.0-1.2 [facility] Internal Medicine Work Phone: Comment on above: PATIENT WAS FASTINGP ERFORMED BY: LabCo[address] [id number] BY: [employer] Cyrryf3402 [address] RoadDublin [place] [id number] Bilirubin.direct mass conc 0.17 mg/dL Normal 0.00-0.40 [facility] Work Phone: Comment on above: PATIENT WAS FASTINGP ERFORMED BY: CloudOn[address] [id number] BY: [facility] Ixpagy8407 [address] [facility] Hospitalblin [place] [id number] Protein mass conc 7.3 g/dL Normal 6.0-8.5 Compreh ensive Internal Medicine Work Phone: Comment on above: PATIENT WAS FASTINGP ERFORMED BY: CloudOn[address] [id number] BY: [employer] Jypfbz8074 [facility] [place] [id number] NMR Profile (05725)Ordered B y: Property Staff Accountant on 05-08-2019 Cholesterol mass conc 212 mg/dL Abnormal 100-199 Com prehensive Internal Medicine Work Phone: Comment on above: PATIENT WAS FASTINGP ERFORMED BY: CloudOn[address] [id number] BY: CloudOnMatheny Medical and Educational CenterOdohza2511 [facility]in [place] [id number] Lipoprotein.alpha molar conc 43.9 umol/L Normal [facility] Work Phone: Comment on above: PATIENT WAS FASTINGP ERFORMED BY: CloudOn[address] [id number] BY: CloudOnMatheny Medical and Educational CenterCzdepi5138 [facility] [place] [id number] Lipoprotein.beta.subp article Entitic length 21.1 nm Normal [facility] Work Phone: Comment on above: INTERPRETATIVE INFORMATION PARTICLE CONCENTRATION AND SIZE <--Lower CVD Risk Higher CVD Risk--> LDL AND HDL PARTICLES Percentile in Reference Population HDL-P (total) High 75th 50th 25th Low >34.9 34.9 30.5 26.7 <26.7 . Small LDL-P Low 25th 50th 75th High <117 117 527 839 >839 . LDL Size <-Large (Pattern A)-> <-Small (Pattern B)-> 23.0 20.6 20.5 19.0 Small LDL-P and LDL Size are associated with CVD risk, but not afterLDL-P is taken into account. .These assays were developed and their performance characteristicsdetermined by [email or web address]. These assays have not been cleared by Isa Food and Drug Administration. The clinical utility of theselaboratory values have not been fully established. PATIENT WAS FASTINGP ERFORMED BY: Adhes[employer].co[address] [place] [address] [id number] BY: [employer] [facility] [id number] Lipoprotein.beta.subp article molar conc 845 nmol/L Normal [facility] Work Phone: Comment on above: Low < 1000 Moderate 1000 - 1299 Borderline-High 1300 - 1599 High 1600 - 2000 Very High > 2000 PATIENT WAS FASTINGP ERFORMED BY: Vetrton1447 [facility] [id number] BY: Notice Kiosk70 [facility] [id number] Lipoprotein.beta.subp article.small molar conc <90 Normal [facility] Work Phone: Comment on above: PATIENT WAS FASTINGP ERFORMED BY: Vetr[address] [id number] BY: [employer] [facility] [id number] Triglyceride mass conc 49 mg/dL Normal 0-149 [facility] Work Phone: Comment on above: PATIENT WAS FASTINGP ERFORMED BY: [employer] [address] [id number] BY: [employer] Ylmeds2074 [address] RoadAtrium Health [place]in [place] [id number] NMR Profile (17747) 95 mg/dL Normal 0-99 [facility] Work [facility]: Comment on above: . Optimal < 100 Abov e optimal 100 - 129 Borderline 130 - 159 High 160 - 189 Very high > 189 .LDL-C is inaccurate if patient is non-fasting. PATIENT WAS FASTINGP ERFORMED BY: [employer] [address] [id number] BY: CloudOnNew Mexico Behavioral Health Institute at Las VegasEhryir3212 [facility] [id number] NMR Profile (53439) 107 mg/dL Normal [facility] Work Phone: Comment on above: PATIENT WAS FASTINGP ERFORMED BY: [employer] [address] [id number] BY: [employer] Ylfxhs7447 [facility] [id number] NMR Profile (12538) 49 mg/dL Normal 0-149 [facility]; [facility] Work Phone: NMR Profile (39212) 212 mg/dL Abnormal 100-199 [facility]; [facility] Work Phone: CALCIFEDIOL (10821)Ordered B y: Property Staff Accountant on 03-13-2019 25-Hydroxyvitamin D2+25-Hydroxyvitamin D3 mass conc 65.2 ng/mL Normal 30.0-100.0 [facility] Work Phone: Comment on above: Vitamin D deficiency has been defined by the [place] ofMedicine and an Endocrine Society practice guideline as alevel of serum 25-OH vitamin D less than 20 ng/mL (1,2).The Endocrine Society went on to further define vitamin Dinsufficiency as a level between 21 and 29 ng/mL (2).1. IOM ([place] of Medicine). 2010. Dietary reference intakes for calcium and D. [place]: The National Academies Press.2. Akash MF, Brittny REYES, Unique CHEUNG, et al. Evaluation, treatment, and prevention of vitamin D deficiency: an Endocrine Society clinical practice guideline. JCEM. 2010; 96(7):1911-30. PATIENT WAS FASTINGP ERFORMED BY: [employer] Lfobtiddwu954[address] [id number] BY: [employer] Sceptz8482 [facility] [id number] CBC W/AUTO DIFF WBC (57373)O rdered By: Property Staff Accountant on 03-13-2019 Basophils #/vol (Bld) 0.0 {x10E3/uL} Normal 0.0-0.2 [facility] Work Phone: Comment on above: PATIENT WAS FASTINGP ERFORMED BY: [employer] [address] [id number] BY: Notice Kiosk70 [facility] [id number] Basophils (Bld) [#/Vol] 0.0 10*3/uL Normal 0.0-0.2 [facility]; [facility] Work Phone: Comment on above: PATIENT WAS FASTINGP ERFORMED BY: [employer] [address] [id number] BY: Notice Kiosk70 [address] [facility]feriqAngel [facility] Center [id number] Basophils/100 WBC (Bld) 0 % Normal [facility] Work Phone: Comment on above: PATIENT WAS FASTINGP ERFORMED BY: Vetr[address] [id number] BY: Notice Kiosk70 [facility] [id number] Eosinophils #/vol (Bld) 0.1 {x10E3/uL} Normal 0.0-0.4 [facility] Work Phone: Comment on above: PATIENT WAS FASTINGP ERFORMED BY: [facility] [address] [id number] BY: [facility] Lykejo7030 [address] RoadAtrium Health [place]hawin [place] [id number] Eosinophils (Bld) [#/Vol] 0.1 10*3/uL Normal 0.0-0.4 [facility]; [facility] Work Phone: Comment on above: PATIENT WAS FASTINGP ERFORMED BY: [facility] [address] [id number] BY: CB [facility] Fioaxs0880 [address] RoadDublin [place] [id number] Eosinophils/100 WBC (Bld) 1 % Normal [facility] Work Phone: Comment on above: PATIENT WAS FASTINGP ERFORMED BY: LabThe [employer] Organization[address] [id number] BY: [facility] Lezxxj7[address] [facility] [place] [id number] Erythrocyte distribution width Ratio (RBC) 13.8 % Normal 12.3-15.4 [facility] Work Phone: Comment on above: PATIENT WAS FASTINGP ERFORMED BY: LabThe Kimberly Organizationrp [address] [id number] BY: [facility] Pqkgkk8886 [address] [facility] [place] [id number] Hematocrit Volume Fraction (Bld) 37.4 % Normal 34.0-46.6 [facility] Work Phone: Comment on above: PATIENT WAS FASTINGP ERFORMED BY: LabThe [employer] Organization[address] [id number] BY: [facility] Zvqjko[address] [facility] [id number] Hemoglobin mass conc (Bld) 11.9 g/dL Normal 11.1-15.9 [facility] Work Phone: Comment on above: PATIENT WAS FASTINGP ERFORMED BY: LabCo[address] [id number] BY: [facility]6370 [address] RoadDuin [place] [id number] Immature granulocytes #/vol (Bld) 0.0 {x10E3/uL} Normal 0.0-0.1 [facility] Work Phone: Comment on above: PATIENT WAS FASTINGP ERFORMED BY: [address] [id number] BY: [place] 1144770 Sylvester RoadAngel Medical Center [id number] Immature granulocytes (Bld) [#/Vol] 0.0 10*3/uL Normal 0.0-0.1 [facility]; [facility] Work Phone: Comment on above: PATIENT WAS FASTINGP ERFORMED BY: [address] [id number] BY: [place] 11447[address] [facility] [id number] Immature granulocytes/100 WBC (Bld) 0 % Normal [facility] Work Phone: Comment on above: PATIENT WAS FASTINGP ERFORMED BY: [address] [id number] BY: [place] 1144770 Sylvester RoadAngel Medical Center [id number] Lymphocytes #/vol (Bld) 1.3 {x10E3/uL} Normal 0.7-3.1 [facility] Work Phone: Comment on above: PATIENT WAS FASTINGP ERFORMED BY: [address] [id number] BY: [facility]6[address] [facility] [id number] Lymphocytes (Bld) [#/Vol] 1.3 10*3/uL Normal 0.7-3.1 [facility]; [facility] Work Phone: Comment on above: PATIENT WAS FASTINGP ERFORMED BY: [address] [place] [id number] BY: LabCoMatheny Medical and Educational CenterOwjyul6173 [address] RoadAtrium Health W[place]hawin [place] [id number] Lymphocytes/100 WBC (Bld) 20 % Normal [facility] Work Phone: Comment on above: PATIENT WAS FASTINGP ERFORMED BY: [address] [id number] BY: LabCoMatheny Medical and Educational CenterDbvmcl0663 [address] [facility] [id number] MCH Entitic mass (RBC) 28.3 pg Normal 26.6-33.0 [facility] Work Phone: Comment on above: PATIENT WAS FASTINGP ERFORMED BY: [address] [id number] BY: [facility]6[address] [facility] [id number] MCHC mass conc (RBC) 31.8 g/dL Normal 31.5-35.7 Comp [facility] Internal Medicine Work Phone: Comment on above: PATIENT WAS FASTINGP ERFORMED BY: [address] [id number] BY: LabB[facility]on [facility]6[address] [facility] [id number] MCV Entitic volume (RBC) 89 fL Normal 79-97 [facility] Work Phone: Comment on above: PATIENT WAS FASTINGP ERFORMED BY: [address] [id number] BY: LabBrighton Hospital6[address] [facility] [id number] Monocytes #/vol (Bld) 0.6 {x10E3/uL} Normal 0.1-0.9 [facility] Work Phone: Comment on above: PATIENT WAS FASTINGP ERFORMED BY: [address] [id number] BY: LabCo Plquli8298 [address] [facility] [id number] Monocytes (Bld) [#/Vol] 0.6 10*3/uL Normal 0.1-0.9 [facility]; [facility] Work Phone: Comment on above: PATIENT WAS FASTINGP ERFORMED BY: Lab[address] [id number] BY: OJ [facility] Lnmkhk0105 [address] RoadDublin [place] [id number] Monocytes/100 WBC (Bld) 8 % Normal [facility] Work Phone: Comment on above: PATIENT WAS FASTINGP ERFORMED BY: [address] [id number] BY: OJ [facility] Mdvxkt7538 [address] RoadAtrium Health [place] [id number] Neutrophils #/vol (Bld) 4.7 {x10E3/uL} Normal 1.4-7.0 [facility] Work Phone: Comment on above: PATIENT WAS FASTINGP ERFORMED BY: [employer] [id number] BY: OJ [facility] Lxzozj3378 Sylvester RoadDuin [place] [id number] Neutrophils (Bld) [#/Vol] 4.7 10*3/uL Normal 1.4-7.0 [facility]; [facility] Work Phone: Comment on above: PATIENT WAS FASTINGP ERFORMED BY: [employer] [id number] BY: [facility]J [facility] Oqpicp0489 [address] RoadDublin [place] [id number] Neutrophils/100 WBC (Bld) 71 % Normal [facility] Work Phone: Comment on above: PATIENT WAS FASTINGP ERFORMED BY: Lab[address] [id number] BY: [facility] Fkwhod6720 Sylvester RoadDublin [place] [id number] Platelets #/vol (Bld) 313 {x10E3/uL} Normal 150-379 [facility] Work Phone: Comment on above: PATIENT WAS FASTINGP ERFORMED BY: [facility] [address] [id number] BY: [facility] Rkbwnf4399 [address] RoadDublin [place] [id number] Platelets (Bld) [#/Vol] 313 10*3/uL Normal 150-379 [facility]; [facility] Work Phone: Comment on above: PATIENT WAS FASTINGP ERFORMED BY: [facility] [address] [id number] BY: CB [facility] Ditptk5517 [address] RoadDublin [place] [id number] RBC #/vol (Bld) 4.20 {x10E6/uL} Normal 3.77-5.28 Comp [facility] Work Phone: Comment on above: PATIENT WAS FASTINGP ERFORMED BY: [facility] [address] [id number] BY: [facility] Fgzjbt8286 [address] RoadDublin [place] [id number] RBC (Bld) [#/Vol] 4.20 10*6/uL Normal 3.77-5.28 Compr ensive [facility] Medicine; [facility] Work Phone: Comment on above: PATIENT WAS FASTINGP ERFORMED BY: [facility] [address] [id number] BY: [facility] Bvqktj6514 [address] RoadDublin [place] [id number] WBC #/vol (Bld) 6.7 {x10E3/uL} Normal 3.4-10.8 Compr ensive Internal Medicine Work Phone: Comment on above: PATIENT WAS FASTINGP ERFORMED BY: [facility] [address] [id number] BY: CB [facility] Rjrmlx6110 [address] RoadDublin [place] [id number] WBC (Bld) [#/Vol] 6.7 10*3/uL Normal 3.4-10.8 [facility] Internal Medicine; [facility] Work Phone: Comment on above: PATIENT WAS FASTINGP ERFORMED BY: LabCo[address] [id number] BY: [facility] Iconuy9009 [address] RoadDublin [place] [id number] METABOLIC PANEL, COMPREHENSI VE (13990)Ordered By: Property Staff Accountant on 03-13-2019 Albumin mass conc 4.3 g/dL Normal 3.5-4.8 Compreh [facility] Internal Medicine Work Phone: Comment on above: PATIENT WAS FASTINGP ERFORMED BY: Lab[address] [id number] BY: [facility] Axsmbb6208 [address] RoadDublin [place] [id number] Albumin/Globulin mass ratio 1.5 {ratio} Normal 1.2-2.2 [facility] Work Phone: Comment on above: PATIENT WAS FASTINGP ERFORMED BY: Lab[address] [id number] BY: [facility] Xtliau2869 [address] RoadDublin [place] [id number] ALP [Catalytic activity/Vol] 57 U/L Normal 39-117 [facility]; [facility] Work Phone: Comment on above: PATIENT WAS FASTINGP ERFORMED BY: LabCo[address] [id number] BY: [facility] Ljxzcr4388 [address] RoadDublin [place] [id number] ALP enzyme act/vol 57 [iU]/L Normal 39-117 [facility] Internal Medicine Work Phone: Comment on above: PATIENT WAS FASTINGP ERFORMED BY: Lab[address] [id number] BY: [facility] Mxftvv2256 [address] RoadDublin [place] [id number] ALT [Catalytic activity/Vol] 10 U/L Normal 0-32 [facility]; [facility] Internal Medicine Work Phone: Comment on above: PATIENT WAS FASTINGP ERFORMED BY: LabCo[address] [id number] BY: OJ [facility] Izusjb8733 [address] RoadDublin [place] [id number] ALT enzyme act/vol 10 [iU]/L Normal 0-32 [facility] Internal Medicine Work Phone: Comment on above: PATIENT WAS FASTINGP ERFORMED BY: Lab[address] [id number] BY: [facility] Yjuuxx3698 [address] RoadDublin [place] [id number] AST [Catalytic activity/Vol] 16 U/L Normal 0-40 [facility] Internal Medicine; [facility] Internal Medicine Work Phone: Comment on above: PATIENT WAS FASTINGP ERFORMED BY: Lab[address] [id number] BY: OJ [facility] Fmppgz9027 [address] RoadDublin [place] [id number] AST enzyme act/vol 16 [iU]/L Normal 0-40 [facility] Internal Medicine Work Phone: Comment on above: PATIENT WAS FASTINGP ERFORMED BY: Lab[address] [id number] BY: [facility] Vgczys7805 [address] RoadDublin [place] [id number] Bilirubin mass conc 0.4 mg/dL Normal 0.0-1.2 [facility] Internal Medicine Work Phone: Comment on above: PATIENT WAS FASTINGP ERFORMED BY: Lab[address] [id number] BY: CB [facility] Hlyhaj1566 [address] RoadDublin [place] [id number] Calcium mass conc 9.4 mg/dL Normal 8.7-10.3 [facility] Internal Medicine Work Phone: Comment on above: PATIENT WAS FASTINGP ERFORMED BY: BN [facility] Fjoympjrdc64[address] [id number] BY: OJ [facility] Zmyaze2916 [address] RoadAtrium Health [place] [id number] Chloride molar conc 101 mmol/L Normal 96-106 Compr ehensive Internal Medicine Work Phone: Comment on above: PATIENT WAS FASTINGP ERFORMED BY: BN [facility] Kokigxdrua35[address] [id number] BY: CB [facility] Sxxzjr04[address] [facility] [id number] CO2 molar conc 25 mmol/L Normal 20-29 Comprehens sandra Internal Medicine Work Phone: Comment on above: PATIENT WAS FASTINGP ERFORMED BY: BN [facility] Avihujynzt64[address] [id number] BY: OJ [facility] Ravnjp5517 [address] [facility] [id number] Creatinine mass conc 0.69 mg/dL Normal 0.57-1.00 Comp rehensive Internal Medicine Work Phone: Comment on above: PATIENT WAS FASTINGP ERFORMED BY: [facility] [address] [id number] BY: CB [facility] Jakbea0096 [address] [facility] [id number] GFR/1.73 sq M predicted among blacks CKD-EPI vol rate/area (S/P/Bld) 98 mL/min/1.73 Normal Comprehensiv e Internal Medicine Work Phone: Comment on above: PATIENT WAS FASTINGP ERFORMED BY: BN [facility] [address] [id number] BY: CB [facility] Hawtgz6864 [address] [facility] [id number] GFR/1.73 sq M predicted among non-blacks CKD-EPI vol rate/area (S/P/Bld) 85 mL/min/1.73 Normal [facility] Work Phone: Comment on above: PATIENT WAS FASTINGP ERFORMED BY: [facility] [address] [id number] BY: OJ [facility] Omywyj5898 Syl[address]ets[address] RoadDublin [place] [id number] Globulin mass conc (S) 2.9 g/dL Normal 1.5-4.5 [facility] Work Phone: Comment on above: PATIENT WAS FASTINGP ERFORMED BY: [facility] [address] [id number] BY: OJ [facility] Vurzwm7840 [address] RoadDublin [place] [id number] Glucose mass conc 81 mg/dL Normal 65-99 Compreh ensive Internal Medicine Work Phone: Comment on above: PATIENT WAS FASTINGP ERFORMED BY: [facility] [address] [id number] BY: OJ [facility] Pliezc6103 Sylvester RoadAngel Medical Center [id number] Potassium molar conc 4.6 mmol/L Normal 3.5-5.2 Comp rehensive Internal Medicine Work Phone: Comment on above: PATIENT WAS FASTINGP ERFORMED BY: [facility] [address] [id number] BY: OJ [facility] Wwyjfs4952 [address] [facility] [place] [id number] Protein mass conc 7.2 g/dL Normal 6.0-8.5 Compreh ensive Internal Medicine Work Phone: Comment on above: PATIENT WAS FASTINGP ERFORMED BY: [facility] [address] [id number] BY: OJ [facility] Ykexfk3449 [address] RoadAtrium Health [place] [id number] Sodium molar conc 140 mmol/L Normal 134-144 Compreh ensive Internal Medicine Work Phone: Comment on above: PATIENT WAS FASTINGP ERFORMED BY: LabCo[address] [id number] BY: OJ [facility] Mdejto7117 [address] RoadDublin [place] [id number] Urea nitrogen mass conc 12 mg/dL Normal 8- [facility] Work Phone: Comment on above: PATIENT WAS FASTINGP ERFORMED BY: [facility] Saodoporkb3[address] [id number] BY: OJ [facility] Ihgubm8065 [address] RoadDublin [place] [id number] Urea nitrogen/Creatinine mass ratio 17 mg/mg Normal 12- [facility] Work Phone: Comment on above: PATIENT WAS FASTINGP ERFORMED BY: [facility] [address] [id number] BY: OJ [facility] Jcordh[address] [facility] [place] [id number] MICROALBUMINOrdered By: Syst em Staffing Administrator on 03-13-2019 Albumin DL <= 20 mg/L (U) [Mass/Vol] mg/dL Normal [facility]; [facility] Work Phone: Comment on above: PATIENT WAS FASTINGP ERFORMED BY: LabThe Kimberly Organizationrp [address] [id number] BY: OJ [facility] Otqsqm48[address] [facility] [place] [id number] Albumin DL <= 20 mg/L mass conc (U) mg/dL Normal [facility] Work Phone: Comment on above: PATIENT WAS FASTINGP ERFORMED BY: [facility] [address] [id number] BY: OJ [facility] Gdbdms34[address] [facility] [place] [id number] Albumin/Creatinine mass ratio (U) <5.7 Normal 0.0-30.0 [facility] Work Phone: Comment on above: Normal: 0.0 - 30.0 A lbuminuria: 31.0 - 300.0 Clinical albuminuria: >300.0 PATIENT WAS FASTINGP ERFORMED BY: LabCo[address] [id number] BY: Signicastlin6370 [facility] CenterAhandyhandCone Health Moses [facility]one Hospital [id number] Creatinine mass conc (U) 52.3 mg/dL Normal [facility] Work Phone: Comment on above: PATIENT WAS FASTINGP ERFORMED BY: [employer] [address] [id number] BY: Signicastlin6370 [facility] [id number] NMR Profile ([id number])Ordered B y: Property Staff Accountant on 03-13-2019 Cholesterol mass conc 266 mg/dL Abnormal 100-199 Com prehensive Internal Medicine Work Phone: Comment on above: PATIENT WAS FASTINGP ERFORMED BY: [employer] [address] [id number] BY: [employer]6370 [facility] CenterAhandyhandCone Health [facility] [id number] Lipoprotein.alpha molar conc 43.2 umol/L Normal [facility] Work Phone: Comment on above: PATIENT WAS FASTINGP ERFORMED BY: Vetr[address] [id number] BY: Notice Kiosk70 [facility] [id number] Lipoprotein.beta.subp article Entitic length 21.8 nm Normal [facility] Work Phone: Comment on above: INTERPRETATIVE INFORMATION PARTICLE CONCENTRATION AND SIZE <--Lower CVD Risk Higher CVD Risk--> LDL AND HDL PARTICLES Percentile in Reference Population HDL-P (total) High 75th 50th 25th Low >34.9 34.9 30.5 26.7 <26.7 . Small LDL-P Low 25th 50th 75th High <117 117 527 839 >839 . LDL Size <-Large (Pattern A)-> <-Small (Pattern B)-> 23.0 20.6 20.5 19.0 Small LDL-P and LDL Size are associated with CVD risk, but not afterLDL-P is taken into account. .These assays were developed and their performance characteristicsdetermined by [email or web address]. These assays have not been cleared by Isa Food and Drug Administration. The clinical utility of theselaboratory values have not been fully established. PATIENT WAS FASTINGP ERFORMED BY: [employer] [facility] [id number] BY: Notice Kios[employer]70 [place] [id number] Lipoprotein.beta.subp article molar conc 1431 nmol/L Abnormal [facility] Work Phone: Comment on above: Low < 1000 Moderate 1000 - 1299 Borderline-High 1300 - 1599 High 1600 - 2000 Very High > 2000 PATIENT WAS FASTINGP ERFORMED BY: Vetr[address] [id number] BY: [employer] LabNYCareerElite Vjttcu0632 GigsTimebl[place] [id number] Lipoprotein.beta.subp article.small molar conc <90 Normal [facility] Work Phone: Comment on above: PATIENT WAS FASTINGP ERFORMED BY: Vetr[address] [id number] BY: [employer] Roumnb0191 [address] [place] [id number] Triglyceride mass conc 64 mg/dL Normal 0-149 [facility] Work Phone: Comment on above: PATIENT WAS FASTINGP ERFORMED BY: ANF Technologyrp Akpzeyzgmo[address] [id number] BY: [employer] LabNYCareerElite Qwnaav2769 [address] AtmosferiqDublin [place] [id number] NMR Profile ([id number]) 160 mg/dL Abnormal 0-99 Compr ehensive Internal Medicine Work Phone: Comment on above: . Optimal < 100 Abov e optimal 100 - 129 Borderline 130 - 159 High 160 - 189 Very high > 189 .LDL-C is inaccurate if patient is non-fasting. PATIENT WAS FASTINGP ERFORMED BY: [employer] [id number] BY: [employer] Rqilpc5188 [address] [facility] [id number] NMR Profile (95217) 93 mg/dL Normal Compr ensive Internal Medicine Work Phone: Comment on above: PATIENT WAS FASTINGP ERFORMED BY: [employer] Oohjetqqaq45[address] [id number] BY: [employer] Ckqrix3425 [facility] [id number] NMR Profile (08694) 64 mg/dL Normal 0-149 [facility] Internal Medicine; [facility] Work Phone: NMR Profile (76336) 266 mg/dL Abnormal 100-199 [facility] Internal Medicine; [facility] Internal Medicine Work Phone: TSH (77754)Ordered By: Emergency CallWorkse m Staffing Administrator on 03-13-2019 Thyrotropin Qn 0.963 {uIU/mL} Normal 0.450-4.50 0 [facility] Internal Medicine Work Phone: Comment on above: PATIENT WAS FASTINGP ERFORMED BY: [employer] Jgnwkppjqz[address] [id number] BY: [employer] Ihulne2385 [facility] [id number] URINALYSIS, W/ MICRO ([id number]) Ordered By: Property Staff Accountant on 03-13-2019 Appearance Nom (U) Clear Normal Compre [facility] Internal Medicine Work Phone: Comment on above: PATIENT WAS FASTINGP ERFORMED BY: CloudOn[address] [id number] BY: LabThe [employer] Qvbwxz6021 [address] [facility] [id number] Bilirubin Ql (U) Negative Normal Comprehe nsive Internal Medicine Work Phone: Comment on above: PATIENT WAS FASTINGP ERFORMED BY: LabCo[address] [id number] BY: OJ [facility] Vkpftz8312 [address] RoadDublin [place] [id number] Bilirubin Ql (U) Negative Normal Comprehe nsive Internal Medicine; [facility] Work Phone: Comment on above: PATIENT WAS FASTINGP ERFORMED BY: [facility] [address] [id number] BY: OJ [facility] Akenxt7841 [address] RoadDublin [place] [id number] Color Nom (U) Yellow Normal Comprehensi ve Internal Medicine Work Phone: Comment on above: PATIENT WAS FASTINGP ERFORMED BY: Lab[address] [id number] BY: OJ [facility] Gdlpvl9660 [address] RoadDublin [place] [id number] Glucose Ql (U) Negative Normal Comprehens sandra Internal Medicine Work Phone: Comment on above: PATIENT WAS FASTINGP ERFORMED BY: Lab[address] [id number] BY: OJ [facility] Rqsctj9872 [address] RoadDublin [place] [id number] Glucose Ql (U) Negative Normal Comprehens sandra Internal Medicine; [facility] Work Phone: Comment on above: PATIENT WAS FASTINGP ERFORMED BY: [facility] [address] [id number] BY: OJ [facility] Isslep4209 [address] RoadDublin [place] [id number] Hemoglobin Ql (U) Negative Normal Compreh ensive Internal Medicine Work Phone: Comment on above: PATIENT WAS FASTINGP ERFORMED BY: LabCo[address] [id number] BY: OJ [facility] Tfwhdh7222 [address] RoadDublin [place] [id number] Hemoglobin Ql (U) Negative Normal Compreh ensive Internal Medicine; [facility] Work Phone: Comment on above: PATIENT WAS FASTINGP ERFORMED BY: [address] [id number] BY: OJ [facility] Hkjbco2080 [address] RoadDublin [place] [id number] Ketones Ql (U) Negative Normal Comprehens sandra Internal Medicine Work Phone: Comment on above: PATIENT WAS FASTINGP ERFORMED BY: [address] [id number] BY: OJ LabCoMatheny Medical and Educational CenterIsxmoq1064 Sylvester RoadAngel Medical Center [id number] Ketones Ql (U) Negative Normal Comprehens sandra Internal Medicine; [facility] Work Phone: Comment on above: PATIENT WAS FASTINGP ERFORMED BY: [address] [id number] BY: OJ LabSt[facility] Xavhtt1135 Sylvester RoadAngel Medical Center [id number] Leukocyte esterase Test strip Ql (U) Trace Abnormal [facility] Work Phone: Comment on above: PATIENT WAS FASTINGP ERFORMED BY: [address] [id number] BY: OJ [facility] Jztkne7877 [address] RoadAtrium Health [place] [id number] Microscopic observation LM Nom (Urine sed) See below: Normal [facility] Work Phone: Comment on above: Microscopic was gasper cated and was performed. PATIENT WAS FASTINGP ERFORMED BY: [address] [id number] BY: [facility] Irvyju6561 [address] RoadDublin [place] [id number] Nitrite Ql (U) Negative Normal Comprehens sandra Internal Medicine Work Phone: Comment on above: PATIENT WAS FASTINGP ERFORMED BY: BN Lab[address] [id number] BY: [facility] Kkzgdk6067 [address] RoadDublin [place] [id number] Nitrite Ql (U) Negative Normal Comprehens sandra Internal Medicine; [facility] Work Phone: Comment on above: PATIENT WAS FASTINGP ERFORMED BY: [address] [id number] BY: Lab[facility] Nqmkua4365 [address] RoadDublin [place] [id number] pH (U) 7.0 [pH] Normal 5.0-7.5 [facility] Work Phone: Comment on above: PATIENT WAS FASTINGP ERFORMED BY: [address] [id number] BY: [facility] Ccnlcc8252 [address] RoadDublin [place] [id number] Protein Ql (U) Negative Normal Comprehens sandra Internal Medicine Work Phone: Comment on above: PATIENT WAS FASTINGP ERFORMED BY: [address] [id number] BY: LabSt[facility] Ygnxng4596 [address] RoadDublin [place] [id number] Protein Ql (U) Negative Normal Comprehens sandra Internal Medicine; [facility] Work Phone: Comment on above: PATIENT WAS FASTINGP ERFORMED BY: [address] [id number] BY: [facility] Jeicgy3290 [address] RoadDublin [place] [id number] Specific gravity Relative Density (U) 1.010 1 Normal 1.005-1.03 0 [facility] Work Phone: Comment on above: PATIENT WAS FASTINGP ERFORMED BY: [address] [id number] BY: LabSt[facility] Ywcpar1393 [address] RoadDublin [place] [id number] Urobilinogen (U) [Mass/Vol] 0.2 mg/dL Normal 0.2-1.0 [facility]; [facility] Work Phone: Comment on above: PATIENT WAS FASTINGP ERFORMED BY: CloudOn[address] [id number] BY: [facility] Eymysz5226 [facility] [id number] Urobilinogen Test strip mass conc (U) 0.2 mg/dL Normal 0.2-1.0 Comprehens e Internal Medicine Work Phone: Comment on above: PATIENT WAS FASTINGP ERFORMED BY: Arkivum[address] [id number] BY: Moovweb6370 [facility] [id number] CALCIFIDIOL (17317) VIT D 25 Ordered By: Property Staff Accountant on 09-12-2018 25-Hydroxyvitamin D2+25-Hydroxyvitamin D3 mass conc 79.7 ng/mL Normal 30.0-100.0 [facility] Work Phone: Comment on above: Vitamin D deficiency has been defined by the [place] ofMedicine and an Endocrine Society practice guideline as alevel of serum 25-OH vitamin D less than 20 ng/mL (1,2).The Endocrine Society went on to further define vitamin Dinsufficiency as a level between 21 and 29 ng/mL (2).1. IOM ([place] of Medicine). 2010. Dietary reference intakes for calcium and D. [place]: The National Academies Press.2. Akash MF, Brittny REYES, Unique CHEUNG, et al. Evaluation, treatment, and prevention of vitamin D deficiency: an Endocrine Society clinical practice guideline. JCEM. 2010; 96(7):1911-30. PATIENT WAS FASTINGP ERFORMED BY: Nourish Aknfnb7018 [facility] [id number] CBC with auto diff ([id number])Or dered By: Property Staff Accountant on 09-12-2018 Basophils #/vol (Bld) 0.0 {x10E3/uL} Normal 0.0-0.2 [facility] Work Phone: Comment on above: PATIENT WAS FASTINGP ERFORMED BY: [facility] Iuihkt7939 [address] RoadDublin [place] [id number] Basophils (Bld) [#/Vol] 0.0 10*3/uL Normal 0.0-0.2 [facility]; [facility] Work Phone: Comment on above: PATIENT WAS FASTINGP ERFORMED BY: CB [facility] Mcvruc5700 [address] RoadDublin [place] [id number] Basophils/100 WBC (Bld) 1 % Normal [facility] Work Phone: Comment on above: PATIENT WAS FASTINGP ERFORMED BY: CB [facility] Izbspe2901 [address] RoadDublin [place] [id number] Eosinophils #/vol (Bld) 0.2 {x10E3/uL} Normal 0.0-0.4 [facility] Work Phone: Comment on above: PATIENT WAS FASTINGP ERFORMED BY: [facility] Ysiprf1580 [address] RoadDublin [place] [id number] Eosinophils (Bld) [#/Vol] 0.2 10*3/uL Normal 0.0-0.4 [facility]; [facility] Work Phone: Comment on above: PATIENT WAS FASTINGP ERFORMED BY: [facility] Hnxqst2883 [address] RoadDublin [place] [id number] Eosinophils/100 WBC (Bld) 4 % Normal [facility] Work Phone: Comment on above: PATIENT WAS FASTINGP ERFORMED BY: [facility] Pyerxt9168 [address] RoadDublin [place] [id number] Erythrocyte distribution width Ratio (RBC) 13.7 % Normal 12.3-15.4 [facility] Work Phone: Comment on above: PATIENT WAS FASTINGP ERFORMED BY: [facility] Hgxzwx6012 [address] RoadDublin [place] [id number] Hematocrit Volume Fraction (Bld) 33.3 % Abnormal 34.0-46.6 [facility] Work Phone: Comment on above: PATIENT WAS FASTINGP ERFORMED BY: OJ [facility]6[address] [facility] [place] [id number] Hemoglobin mass conc (Bld) 11.0 g/dL Abnormal 11.1-15.9 [facility] Work Phone: Comment on above: PATIENT WAS FASTINGP ERFORMED BY: [facility]6[address] [facility]in [place] [id number] Immature granulocytes #/vol (Bld) 0.0 {x10E3/uL} Normal 0.0-0.1 [facility] Work Phone: Comment on above: PATIENT WAS FASTINGP ERFORMED BY: [place] 1144770 [address] RoadAtrium Health [place] [id number] Immature granulocytes (Bld) [#/Vol] 0.0 10*3/uL Normal 0.0-0.1 [facility]; [facility] Work Phone: Comment on above: PATIENT WAS FASTINGP ERFORMED BY: [place] 11447[address] [facility] [id number] Immature granulocytes/100 WBC (Bld) 0 % Normal [facility] Work Phone: Comment on above: PATIENT WAS FASTINGP ERFORMED BY: [facility]6[address] [facility]in [place] [id number] Lymphocytes #/vol (Bld) 1.3 {x10E3/uL} Normal 0.7-3.1 [facility] Work Phone: Comment on above: PATIENT WAS FASTINGP ERFORMED BY: [facility] [facility]in [place] [id number] Lymphocytes (Bld) [#/Vol] 1.3 10*3/uL Normal 0.7-3.1 [facility]; [facility] Work Phone: Comment on above: PATIENT WAS FASTINGP ERFORMED BY: [facility] [facility]in [place] [id number] Lymphocytes/100 WBC (Bld) 26 % Normal [facility] Work Phone: Comment on above: PATIENT WAS FASTINGP ERFORMED BY: [facility] Ywkliv6117 [facility] [id number] MCH Entitic mass (RBC) 28.9 pg Normal 26.6-33.0 [facility] Work Phone: Comment on above: PATIENT WAS FASTINGP ERFORMED BY: OJ JonesSt. [facility] Jfewff3387 [facility] [id number] MCHC mass conc (RBC) 33.0 g/dL Normal 31.5-35.7 [facility] Internal Medicine Work Phone: Comment on above: PATIENT WAS FASTINGP ERFORMED BY: OJ Quiroslin6370 [facility] [id number] MCV Entitic volume (RBC) 88 fL Normal 79-97 [facility] Work Phone: Comment on above: PATIENT WAS FASTINGP ERFORMED BY: OJ Quiroslin6370 [facility] [id number] Monocytes #/vol (Bld) 0.4 {x10E3/uL} Normal 0.1-0.9 [facility] Work Phone: Comment on above: PATIENT WAS FASTINGP ERFORMED BY: OJ Quiroslin6370 [facility] [id number] Monocytes (Bld) [#/Vol] 0.4 10*3/uL Normal 0.1-0.9 [facility]; [facility] Work Phone: Comment on above: PATIENT WAS FASTINGP ERFORMED BY: [facility]6370 [facility] [id number] Monocytes/100 WBC (Bld) 7 % Normal [facility] Work Phone: Comment on above: PATIENT WAS FASTINGP ERFORMED BY: OJ [facility] CenterMarizaMatheny Medical and Educational CenterDlivsd0591 [facility] [id number] Neutrophils #/vol (Bld) 3.1 {x10E3/uL} Normal 1.4-7.0 [facility] Work Phone: Comment on above: PATIENT WAS FASTINGP ERFORMED BY: OJ LabCo Ghskqp2419 [address] RoadDublin [place] [id number] Neutrophils (Bld) [#/Vol] 3.1 10*3/uL Normal 1.4-7.0 [facility]; [facility] Work Phone: Comment on above: PATIENT WAS FASTINGP ERFORMED BY: LabSt. [facility] Xroeoi5386 [address] RoadDublin [place] [id number] Neutrophils/100 WBC (Bld) 62 % Normal [facility] Work Phone: Comment on above: PATIENT WAS FASTINGP ERFORMED BY: LabCo Hxlyrz4843 [address] RoadDublin [place] [id number] Platelets #/vol (Bld) 244 {x10E3/uL} Normal 150-379 [facility] Work Phone: Comment on above: PATIENT WAS FASTINGP ERFORMED BY: LabSt. [facility] Jbnvbf2404 [address] RoadDublin [place] [id number] Platelets (Bld) [#/Vol] 244 10*3/uL Normal 150-379 [facility]; [facility] Work Phone: Comment on above: PATIENT WAS FASTINGP ERFORMED BY: LabSt. [facility] Kmerwy9539 [address] RoadDublin [place] [id number] RBC #/vol (Bld) 3.80 {x10E6/uL} Normal 3.77-5.28 [facility] Systemsensive [facility] Medicine Work Phone: Comment on above: PATIENT WAS FASTINGP ERFORMED BY: LabCo Htpqtb9973 [address] RoadDublin [place] [id number] RBC (Bld) [#/Vol] 3.80 10*6/uL Normal 3.77-5.28 [facility]; [facility] Internal Medicine Work Phone: Comment on above: PATIENT WAS FASTINGP ERFORMED BY: LabCo Rlrrqo4297 [address] RoadDublin [place] [id number] WBC #/vol (Bld) 5.0 {x10E3/uL} Normal 3.4-10.8 Compr ensive Internal Medicine Work Phone: Comment on above: PATIENT WAS FASTINGP ERFORMED BY: OJ LabCocheo Aksgmj5361 [address] [facility] Hospitalblin [place] [id number] WBC (Bld) [#/Vol] 5.0 10*3/uL Normal 3.4-10.8 [facility] Internal Medicine; [facility] Work Phone: Comment on above: PATIENT WAS FASTINGP ERFORMED BY: OJ LabCocheo QuirosFvpajr[address] [facility]in [place] [id number] LIPID PANEL ([id number])Ordered B y: Property Staff Accountant on 09-12-2018 Cholesterol in HDL mass conc 82 mg/dL Normal [facility] Work Phone: Comment on above: PATIENT WAS FASTINGP ERFORMED BY: OJ Linhcheo Lzntwy7014 [facility] [id number] Cholesterol in LDL mass conc 152 mg/dL Abnormal 0-99 [facility] Work Phone: Comment on above: PATIENT WAS FASTINGP ERFORMED BY: OJ LabMarizacheo Vzsmzj3721 [facility] [id number] Cholesterol in LDL/Cholesterol in HDL mass ratio 1.9 {ratio} Normal 0.0-3.2 [facility] Work Phone: Comment on above: LDL/HDL Ratio Men Wo men 1/2 Avg.Risk 1.0 1.5 Avg.Risk 3.6 3.2 2X Avg.Risk 6.2 5.0 3X Avg.Risk 8.0 6.1 PATIENT WAS FASTINGP ERFORMED BY: OJ LabCocheo Lqqkwl4229 [facility] [id number] Cholesterol in VLDL mass conc 10 mg/dL Normal 5-40 [facility] Work Phone: Comment on above: PATIENT WAS FASTINGP ERFORMED BY: OJ LabCocheo Cmhjpi79[address] [facility]in [place] [id number] Cholesterol mass conc 244 mg/dL Abnormal 100-199 Com prehensive Internal Medicine Work Phone: Comment on above: PATIENT WAS FASTINGP ERFORMED BY: OJ LabCo Yhtafb0609 [address] Roadblin [place] [id number] Triglyceride mass conc 52 mg/dL Normal 0-149 [facility] Work Phone: Comment on above: PATIENT WAS FASTINGP ERFORMED BY: OJ Merlyn Waldron6370 [address]Dublin [place] [id number] METABOLIC PANEL, COMPREHENSI VE ([id number])Ordered By: Property Staff Accountant on 09-12-2018 Albumin mass conc 4.3 g/dL Normal 3.5-4.8 Compreh [facility] Internal Medicine Work Phone: Comment on above: PATIENT WAS FASTINGP ERFORMED BY: OJ LabDerrick QuirosIqpmxs4755 [address] Roadblin [place] [id number] Albumin/Globulin mass ratio 1.6 {ratio} Normal 1.2-2.2 [facility] Work Phone: Comment on above: PATIENT WAS FASTINGP ERFORMED BY: OJ Linhcheo QuirosQpyilc0609 [address] RoadAtrium Health Waxhawin [place] [id number] ALP [Catalytic activity/Vol] 60 U/L Normal 39-117 [facility]; [facility] Work Phone: Comment on above: PATIENT WAS FASTINGP ERFORMED BY: OJ LabMarizaceho QuirosXqmhgm6021 [address] Roadblin [place] [id number] ALP enzyme act/vol 60 [iU]/L Normal 39-117 [facility] Internal Medicine Work Phone: Comment on above: PATIENT WAS FASTINGP ERFORMED BY: OJ LabDerrick QuirosErlywk2544 [address]blin [place] [id number] ALT [Catalytic activity/Vol] 10 U/L Normal 0-32 [facility]; [facility] Work Phone: Comment on above: PATIENT WAS FASTINGP ERFORMED BY: OJ [facility] Twpmoa6686 [address] RoadDublin [place] [id number] ALT enzyme act/vol 10 [iU]/L Normal 0-32 [facility] Internal Medicine Work Phone: Comment on above: PATIENT WAS FASTINGP ERFORMED BY: OJ [facility] Hikrvh4552 [address] RoadDublin [place] [id number] AST [Catalytic activity/Vol] 15 U/L Normal 0-40 [facility]; [facility] Work Phone: Comment on above: PATIENT WAS FASTINGP ERFORMED BY: OJ LabCocheo QuirosOfkwem9666 [address] Hospitalblin [place] [id number] AST enzyme act/vol 15 [iU]/L Normal 0-40 [facility] Internal Medicine Work Phone: Comment on above: PATIENT WAS FASTINGP ERFORMED BY: LabCo Awfctq3606 [address] [facility] [id number] Bilirubin mass conc 0.3 mg/dL Normal 0.0-1.2 Compr ensive Internal Medicine Work Phone: Comment on above: PATIENT WAS FASTINGP ERFORMED BY: LabMariza Fgoeak7045 [address] [facility] [id number] Calcium mass conc 9.6 mg/dL Normal 8.7-10.3 Compreh [facility]ive Internal Medicine Work Phone: Comment on above: PATIENT WAS FASTINGP ERFORMED BY: LabSt. [facility] Hxjfqn4971 [address] [facility] [id number] Chloride molar conc 101 mmol/L Normal 96-106 [facility] Internal Medicine Work Phone: Comment on above: PATIENT WAS FASTINGP ERFORMED BY: LabMariza Strzem1887 [facility] [id number] CO2 molar conc 27 mmol/L Normal 20-29 Comprehens sandra Internal Medicine Work Phone: Comment on above: PATIENT WAS FASTINGP ERFORMED BY: LabCo Dfozqo4805 [address] [facility]in [place] [id number] Creatinine mass conc 0.81 mg/dL Normal 0.57-1.00 Comp [facility] hospitalensive Internal Medicine Work Phone: Comment on above: PATIENT WAS FASTINGP ERFORMED BY: LabCo Nframm24[address] [facility]in [place] [id number] GFR/1.73 sq M predicted among blacks CKD-EPI vol rate/area (S/P/Bld) 82 mL/min/1.73 Normal Comprehensiv e Internal Medicine Work Phone: Comment on above: PATIENT WAS FASTINGP ERFORMED BY: OJ LabCocheo QuirosQnpuna3867 [address] [facility]in [place] [id number] GFR/1.73 sq M predicted among non-blacks CKD-EPI vol rate/area (S/P/Bld) 71 mL/min/1.73 Normal [facility] Work Phone: Comment on above: PATIENT WAS FASTINGP ERFORMED BY: OJ LabCo Gomjma5977 [address] [facility] [id number] Globulin mass conc (S) 2.7 g/dL Normal 1.5-4.5 [facility] Work Phone: Comment on above: PATIENT WAS FASTINGP ERFORMED BY: OJ Quiroslin6370 [address] [facility] [id number] Glucose mass conc 68 mg/dL Normal 65-99 Compreh ensive Internal Medicine Work Phone: Comment on above: PATIENT WAS FASTINGP ERFORMED BY: OJ Melton Lsyodi[address] [facility] [facility]in [place] [id number] Potassium molar conc 4.4 mmol/L Normal 3.5-5.2 Comp rehensive Internal Medicine Work Phone: Comment on above: PATIENT WAS FASTINGP ERFORMED BY: OJ JonesCocheo QuirosTfbtpt3158 [facility] [id number] Protein mass conc 7.0 g/dL Normal 6.0-8.5 Compreh ensive Internal Medicine Work Phone: Comment on above: PATIENT WAS FASTINGP ERFORMED BY: OJ LabCo Dyaogy9505 [facility] [facility] [id number] Sodium molar conc 142 mmol/L Normal 134-144 Compreh ensive Internal Medicine Work Phone: Comment on above: PATIENT WAS FASTINGP ERFORMED BY: OJ [facility] Pozmfn9842 [facility]bl[facility] [place] [id number] Urea nitrogen mass conc 18 mg/dL Normal 8-27 [facility] Work Phone: Comment on above: PATIENT WAS FASTINGP ERFORMED BY: OJ JonesCo Mhpzuj1317 [facility] [id number] Urea nitrogen/Creatinine mass ratio 22 mg/mg Normal 12-28 [facility] Work Phone: Comment on above: PATIENT WAS FASTINGP ERFORMED BY: CloudOn Kgovyp4091 [facility] [id number] CALCIFEDIOL ([id number])Ordered B y: Property Staff Accountant on 04-19-2018 25-Hydroxyvitamin D2+25-Hydroxyvitamin D3 mass conc 72.8 ng/mL Normal 30.0-100.0 [facility] Work Phone: Comment on above: Vitamin D deficiency has been defined by the [place] of[place]cine and an Endocrine Society practice guideline as alevel of serum 25-OH vitamin D less than 20 ng/mL (1,2).The Endocrine Society went on to further define vitamin Dinsufficiency as a level between 21 and 29 ng/mL (2).1. IOM ([place] of Medicine). 2010. Dietary reference intakes for calcium and D. [place]: The National Academies Press.2. Akash MF, Brittny [place], Unique CHEUNG, et al. Evaluation, treatment, and prevention of vitamin D deficiency: an Endocrine Society clinical practice guideline. JCEM. 2010; 96(7):1911-30. PATIENT WAS FASTINGP ERFORMED BY: [facility]On Wqkwzu3141 [facility] [id number] CBC W/AUTO DIFF WBC (20779)O rdered By: Property Staff Accountant on 04-19-2018 Basophils #/vol (Bld) 0.0 {x10E3/uL} Normal 0.0-0.2 [facility] Work Phone: Comment on above: PATIENT WAS FASTINGP ERFORMED BY: CloudOn Osknbi1221 [facility] [id number] Basophils (Bld) [#/Vol] 0.0 10*3/uL Normal 0.0-0.2 [facility]; [facility] Work Phone: Comment on above: PATIENT WAS FASTINGP ERFORMED BY: CloudOn Cwtgim6572 [facility] [id number] Basophils/100 WBC (Bld) 1 % Normal [facility] Work Phone: Comment on above: PATIENT WAS FASTINGP ERFORMED BY: LabCoMatheny Medical and Educational CenterBsmemy5190 [address] [facility] [id number] Eosinophils #/vol (Bld) 0.2 {x10E3/uL} Normal 0.0-0.4 [facility] Work Phone: Comment on above: PATIENT WAS FASTINGP ERFORMED BY: LabBrighton Hospital6370 [facility] [facility] [id number] Eosinophils (Bld) [#/Vol] 0.2 10*3/uL Normal 0.0-0.4 [facility]; [facility] Work Phone: Comment on above: PATIENT WAS FASTINGP ERFORMED BY: [facility]6370 [facility] [id number] Eosinophils/100 WBC (Bld) 4 % Normal [facility] Work Phone: Comment on above: PATIENT WAS FASTINGP ERFORMED BY: [facility]6370 [facility] [id number] Erythrocyte distribution width Ratio (RBC) 13.8 % Normal 12.3-15.4 [facility] Work Phone: Comment on above: PATIENT WAS FASTINGP ERFORMED BY: LabBrighton Hospital6370 [facility] [id number] Hematocrit Volume Fraction (Bld) 33.1 % Abnormal 34.0-46.6 [facility] Work Phone: Comment on above: PATIENT WAS FASTINGP ERFORMED BY: LabSt. [facility] Leofnq5564 [facility] [facility] [id number] Hemoglobin mass conc (Bld) 10.9 g/dL Abnormal 11.1-15.9 [facility] Work Phone: Comment on above: PATIENT WAS FASTINGP ERFORMED BY: LabSt. [facility] Dqlwfe9268 [facility] [facility] [id number] Immature granulocytes #/vol (Bld) 0.0 {x10E3/uL} Normal 0.0-0.1 [facility] Work Phone: Comment on above: PATIENT WAS FASTINGP ERFORMED BY: LabCo Pwtgsa9202 [address] RoadDublin [place] [id number] Immature granulocytes (Bld) [#/Vol] 0.0 10*3/uL Normal 0.0-0.1 [facility]; [facility] Work Phone: Comment on above: PATIENT WAS FASTINGP ERFORMED BY: LabCo Reshrq5286 [address] RoadDublin [place] [id number] Immature granulocytes/100 WBC (Bld) 0 % Normal [facility] Work Phone: Comment on above: PATIENT WAS FASTINGP ERFORMED BY: LabCapital Region Medical CenterVhhrns3221 [address] RoadDublin [place] [id number] Lymphocytes #/vol (Bld) 1.2 {x10E3/uL} Normal 0.7-3.1 [facility] Work Phone: Comment on above: PATIENT WAS FASTINGP ERFORMED BY: LabBrighton Hospital6370 [address] RoadAtrium Health [place]in [place] [id number] Lymphocytes (Bld) [#/Vol] 1.2 10*3/uL Normal 0.7-3.1 [facility]; [facility] Work Phone: Comment on above: PATIENT WAS FASTINGP ERFORMED BY: LabSt. [facility] Prpvpb6826 [facility]bl[facility] [place] [id number] Lymphocytes/100 WBC (Bld) 20 % Normal [facility] Work Phone: Comment on above: PATIENT WAS FASTINGP ERFORMED BY: LabCo Suuenu8657 [address] RoadDublin [place] [id number] MCH Entitic mass (RBC) 28.7 pg Normal 26.6-33.0 [facility] Work Phone: Comment on above: PATIENT WAS FASTINGP ERFORMED BY: LabCo Cqvoiz2364 [address] RoadDublin [place] [id number] MCHC mass conc (RBC) 32.9 g/dL Normal 31.5-35.7 [facility] Internal Medicine Work Phone: Comment on above: PATIENT WAS FASTINGP ERFORMED BY: OJ [facility] Swpgrb1410 [address] RoadDublin [place] [id number] MCV Entitic volume (RBC) 87 fL Normal 79-97 [facility] Work Phone: Comment on above: PATIENT WAS FASTINGP ERFORMED BY: OJ [facility] Nvfbfw0929 [address] RoadDublin [place] [id number] Monocytes #/vol (Bld) 0.4 {x10E3/uL} Normal 0.1-0.9 [facility] Work Phone: Comment on above: PATIENT WAS FASTINGP ERFORMED BY: OJ [facility] Ramcfw7185 [address] RoadDublin [place] [id number] Monocytes (Bld) [#/Vol] 0.4 10*3/uL Normal 0.1-0.9 [facility]; [facility] Work Phone: Comment on above: PATIENT WAS FASTINGP ERFORMED BY: OJ LabCo Hugaur8330 [address] RoadDublin [place] [id number] Monocytes/100 WBC (Bld) 8 % Normal [facility] Work Phone: Comment on above: PATIENT WAS FASTINGP ERFORMED BY: OJ LabCo Sprwns1358 [address] RoadDublin [place] [id number] Neutrophils #/vol (Bld) 3.9 {x10E3/uL} Normal 1.4-7.0 [facility] Work Phone: Comment on above: PATIENT WAS FASTINGP ERFORMED BY: [facility] Odnllq3106 [address] RoadDublin [place] [id number] Neutrophils (Bld) [#/Vol] 3.9 10*3/uL Normal 1.4-7.0 [facility]; [facility] Work Phone: Comment on above: PATIENT WAS FASTINGP ERFORMED BY: [facility] Wmhaps1357 [address] RoadDublin [place] [id number] Neutrophils/100 WBC (Bld) 67 % Normal [facility] Work Phone: Comment on above: PATIENT WAS FASTINGP ERFORMED BY: OJ [facility] Kpffho9959 [address] RoadDublin [place] [id number] Platelets #/vol (Bld) 275 {x10E3/uL} Normal 150-379 [facility] Work Phone: Comment on above: PATIENT WAS FASTINGP ERFORMED BY: CB [facility] Tqcmgs7750 [address] RoadDublin [place] [id number] Platelets (Bld) [#/Vol] 275 10*3/uL Normal 150-379 [facility]; [facility] Work Phone: Comment on above: PATIENT WAS FASTINGP ERFORMED BY: OJ LabCocheo QuirosPfxfpr7424 [address] RoadDublin [place] [id number] RBC #/vol (Bld) 3.80 {x10E6/uL} Normal 3.77-5.28 Comp [facility]ensive Internal [facility] Work Phone: Comment on above: PATIENT WAS FASTINGP ERFORMED BY: OJ [facility] Cpguei1846 [address] RoadDublin [place] [id number] RBC (Bld) [#/Vol] 3.80 10*6/uL Normal 3.77-5.28 Compr ensive Internal Medicine; [facility] Work Phone: Comment on above: PATIENT WAS FASTINGP ERFORMED BY: OJ [facility] Uvexan1783 [address]Dublin [place] [id number] WBC #/vol (Bld) 5.8 {x10E3/uL} Normal 3.4-10.8 Compr ensive Internal Medicine Work Phone: Comment on above: PATIENT WAS FASTINGP ERFORMED BY: OJ [facility] Pepqyv3626 [address] RoadDublin [place] [id number] WBC (Bld) [#/Vol] 5.8 10*3/uL Normal 3.4-10.8 Compre [facility] Internal Medicine; [facility] Work Phone: Comment on above: PATIENT WAS FASTINGP ERFORMED BY: CB [facility] Mmrckg7638 [address] RoadDublin [place] [id number] LIPID PANEL ([id number])Ordered B y: Property Staff Accountant on 04-19-2018 Cholesterol in HDL mass conc 85 mg/dL Normal [facility] Work Phone: Comment on above: PATIENT WAS FASTINGP ERFORMED BY: OJ [facility] Xspner9619 [address]bl[facility] [place] [id number] Cholesterol in LDL mass conc 136 mg/dL Abnormal 0-99 [facility] Work Phone: Comment on above: PATIENT WAS FASTINGP ERFORMED BY: OJ [facility] Zewqsc2427 [address] [facility] [id number] Cholesterol in LDL/Cholesterol in HDL mass ratio 1.6 {ratio} Normal 0.0-3.2 [facility] Work Phone: Comment on above: LDL/HDL Ratio Men Wo men 1/2 Avg.Risk 1.0 1.5 Avg.Risk 3.6 3.2 2X Avg.Risk 6.2 5.0 3X Avg.Risk 8.0 6.1 PATIENT WAS FASTINGP ERFORMED BY: OJ [facility] Lmkqpk3704 [address] [facility] [id number] Cholesterol in VLDL mass conc 12 mg/dL Normal 5-40 [facility] Work Phone: Comment on above: PATIENT WAS FASTINGP ERFORMED BY: OJ LabCocheo Ejmows1893 [address] [facility] [id number] Cholesterol mass conc 233 mg/dL Abnormal 100-199 [facility] prehensive Internal Medicine Work Phone: Comment on above: PATIENT WAS FASTINGP ERFORMED BY: OJ [facility] Wdmwol1724 [address] [facility]in [place] [id number] Triglyceride mass conc 60 mg/dL Normal 0-149 [facility] Work Phone: Comment on above: PATIENT WAS FASTINGP ERFORMED BY: OJ [facility] Ygzmyn2439 [facility] Hospitalbl[facility] [place] [id number] METABOLIC PANEL, COMPREHENSI VE ([id number])Ordered By: Property Staff Accountant on 04-19-2018 Albumin mass conc 4.3 g/dL Normal 3.5-4.8 Compreh ensive Internal Medicine Work Phone: Comment on above: PATIENT WAS FASTINGP ERFORMED BY: OJ Quiroslin6370 [address]bl[address] [place] [id number] Albumin/Globulin mass ratio 1.4 {ratio} Normal 1.2-2.2 [facility] Work Phone: Comment on above: PATIENT WAS FASTINGP ERFORMED BY: OJ Quiroslin6370 [address]bl[address] [place] [id number] ALP [Catalytic activity/Vol] 61 U/L Normal 39-117 [facility]; [facility] Internal Medicine Work Phone: Comment on above: PATIENT WAS FASTINGP ERFORMED BY: OJ Quiroslin6370 [address]bl[address] [place] [id number] ALP enzyme act/vol 61 [iU]/L Normal 39-117 [facility] Internal Medicine Work Phone: Comment on above: PATIENT WAS FASTINGP ERFORMED BY: OJ Waldron6370 [address] [facility] [id number] ALT [Catalytic activity/Vol] 11 U/L Normal 0-32 [facility]; [facility] Internal Medicine Work Phone: Comment on above: PATIENT WAS FASTINGP ERFORMED BY: OJ Quiroslin6370 [facility]bl[facility] [place] [id number] ALT enzyme act/vol 11 [iU]/L Normal 0-32 [facility] Internal Medicine Work Phone: Comment on above: PATIENT WAS FASTINGP ERFORMED BY: OJ RobertMariza Afcrqa0113 [address] [facility]in [place] [id number] AST [Catalytic activity/Vol] 14 U/L Normal 0-40 [facility]; [facility] Internal Medicine Work Phone: Comment on above: PATIENT WAS FASTINGP ERFORMED BY: OJ RobertDerrick QuirosNbiwmd6473 [address] [facility] SurgeryDublin [place] [id number] AST enzyme act/vol 14 [iU]/L Normal 0-40 [facility] Internal Medicine Work Phone: Comment on above: PATIENT WAS FASTINGP ERFORMED BY: CB [facility] Uenkkz5223 [address] RoadDublin [place] [id number] Bilirubin mass conc 0.4 mg/dL Normal 0.0-1.2 Compr ehensive Internal Medicine Work Phone: Comment on above: PATIENT WAS FASTINGP ERFORMED BY: OJ [facility] Uvfhat2307 [address] RoadDublin [place] [id number] Calcium mass conc 9.4 mg/dL Normal 8.7-10.3 Compreh ensive Internal Medicine Work Phone: Comment on above: PATIENT WAS FASTINGP ERFORMED BY: OJ [facility] Qosksm0533 [address] [facility]in [place] [id number] Chloride molar conc 102 mmol/L Normal 96-106 Compr ehensive Internal Medicine Work Phone: Comment on above: PATIENT WAS FASTINGP ERFORMED BY: OJ LabCocheo QuirosKoyzqu1032 [address] [facility] [id number] CO2 molar conc 25 mmol/L Normal 18-29 Comprehens sandra Internal Medicine Work Phone: Comment on above: Effective May 06, 2018 Carbon Dioxide, Total reference interval will be changing to: Age Male Female 0 days - 30 days 16 - 29 16 - 29 31 days - 1 year 15 - 25 15 - 25 2 years - 5 years 17 - 26 17 - 26 6 years - 12 years 19 - 27 19 - 27 >12 years 20 - 29 20 - 29 PATIENT WAS FASTINGP ERFORMED BY: OJ LabCocheo QuirosRtbgwr4597 [facility] [id number] Creatinine mass conc 0.74 mg/dL Normal 0.57-1.00 Comp [facility] Work Phone: Comment on above: PATIENT WAS FASTINGP ERFORMED BY: OJ [facility] Sujmlr5108 [address] [facility] [place] [id number] GFR/1.73 sq M predicted among blacks CKD-EPI vol rate/area (S/P/Bld) 92 mL/min/1.73 Normal Comprehensiv e Internal Medicine Work Phone: Comment on above: PATIENT WAS FASTINGP ERFORMED BY: OJ [facility] Dcqike3781 [address] [facility] [id number] GFR/1.73 sq M predicted among non-blacks CKD-EPI vol rate/area (S/P/Bld) 80 mL/min/1.73 Normal [facility] Work Phone: Comment on above: PATIENT WAS FASTINGP ERFORMED BY: [facility] Yypnfx5245 [facility] [place] [id number] Globulin mass conc (S) 3.0 g/dL Normal 1.5-4.5 [facility] Work Phone: Comment on above: PATIENT WAS FASTINGP ERFORMED BY: [facility]J [facility] [id number] [facility] [id number] Glucose mass conc 86 mg/dL Normal 65-99 Compreh ensive Internal Medicine Work Phone: Comment on above: PATIENT WAS FASTINGP ERFORMED BY: [facility] Eotpxc9166 [facility] [id number] Potassium molar conc 4.0 mmol/L Normal 3.5-5.2 Comp rehensive Internal Medicine Work Phone: Comment on above: PATIENT WAS FASTINGP ERFORMED BY: [facility] Bfyend7194 [facility] [place] [id number] Protein mass conc 7.3 g/dL Normal 6.0-8.5 Compreh ensive Internal Medicine Work Phone: Comment on above: PATIENT WAS FASTINGP ERFORMED BY: [facility]J [facility] Xzmrel0344 [facility] [id number] Sodium molar conc 143 mmol/L Normal 134-144 Compreh ensive Internal Medicine Work Phone: Comment on above: PATIENT WAS FASTINGP ERFORMED BY: [facility] Rkcsbz6813 [facility] [place] [id number] Urea nitrogen mass conc 16 mg/dL Normal 8-27 [facility] Work Phone: Comment on above: PATIENT WAS FASTINGP ERFORMED BY: [facility] Fonkzq9502 [facility] [place] [id number] Urea nitrogen/Creatinine mass ratio 22 mg/mg Normal 12-28 [facility] Work Phone: Comment on above: PATIENT WAS FASTINGP ERFORMED BY: OJ [facility] Lpqfrg3139 [address] RoadDublin [place] [id number] MICROALBUMINOrdered By: Syst em Staffing Administrator on 04-19-2018 Albumin DL <= 20 mg/L mass conc (U) 9.0 ug/mL Normal [facility] Work Phone: Comment on above: PATIENT WAS FASTINGP ERFORMED BY: OJ [facility] Kfezkg2656 [address] RoadDublin [place] [id number] Albumin/Creatinine mass ratio (U) 16.2 {mg/g_creat} Normal 0.0-30.0 [facility] Work Phone: Comment on above: PATIENT WAS FASTINGP ERFORMED BY: OJ [facility] Nczdda3317 [address] RoadDublin [place] [id number] Creatinine mass conc (U) 55.6 mg/dL Normal [facility] Work Phone: Comment on above: PATIENT WAS FASTINGP ERFORMED BY: OJ [facility] Vpqqnu5301 [address] RoadDublin [place] [id number] TSH ([id number])Ordered By: Anjana m Staffing Administrator on 04-19-2018 Thyrotropin Qn 1.130 {uIU/mL} Normal 0.450-4.50 0 [facility] Work Phone: Comment on above: PATIENT WAS FASTINGP ERFORMED BY: OJ [facility] Wzxyxh2282 [address] RoadDublin [place] [id number] URINALYSIS, W/ MICRO ([id number]) Ordered By: Property Staff Accountant on 04-19-2018 Appearance Nom (U) Clear Normal Compre hensive Internal Medicine Work Phone: Comment on above: PATIENT WAS FASTINGP ERFORMED BY: OJ [facility] Ekbwgt2103 [address] RoadDublin [place] [id number] Bilirubin Ql (U) Negative Normal Comprehe nsive Internal Medicine Work Phone: Comment on above: PATIENT WAS FASTINGP ERFORMED BY: OJ [facility] Cbwkds0712 [address] RoadDublin [place] [id number] Bilirubin Ql (U) Negative Normal Comprehe nsive Internal Medicine; [facility] Work Phone: Comment on above: PATIENT WAS FASTINGP ERFORMED BY: OJ Quiroslin6370 [address] RoadDublin [place] [id number] Color Nom (U) Yellow Normal Comprehensi ve Internal Medicine Work Phone: Comment on above: PATIENT WAS FASTINGP ERFORMED BY: OJ Waldron6370 [address]Dublin [place] [id number] Glucose Ql (U) Negative Normal Comprehens sandra Internal Medicine Work Phone: Comment on above: PATIENT WAS FASTINGP ERFORMED BY: OJ Waldron6[address]Dublin [place] [id number] Glucose Ql (U) Negative Normal Comprehens sandra Internal Medicine; [facility] Work Phone: Comment on above: PATIENT WAS FASTINGP ERFORMED BY: OJ Waldron6[address]ublin [place] [id number] Hemoglobin Ql (U) Negative Normal Compreh ensive Internal Medicine Work Phone: Comment on above: PATIENT WAS FASTINGP ERFORMED BY: OJ Waldron6[address] [place] [id number] Hemoglobin Ql (U) Negative Normal Compreh ensive Internal Medicine; [facility] Work Phone: Comment on above: PATIENT WAS FASTINGP ERFORMED BY: OJ Waldron6[address] [place] [id number] Ketones Ql (U) Negative Normal Comprehens sandra Internal Medicine Work Phone: Comment on above: PATIENT WAS FASTINGP ERFORMED BY: OJ Quiroslin6370 [address]Dublin [place] [id number] Ketones Ql (U) Negative Normal Comprehens sandra Internal Medicine; [facility] Work Phone: Comment on above: PATIENT WAS FASTINGP ERFORMED BY: OJ Waldron[address] [place] [id number] Leukocyte esterase Test strip Ql (U) 1+ Abnormal [facility] Work Phone: Comment on above: PATIENT WAS FASTINGP ERFORMED BY: OJ Waldron6[address] [place] [id number] Microscopic observation LM Nom (Urine sed) See below: Normal [facility] Work Phone: Comment on above: Microscopic was gasper cated and was performed. PATIENT WAS FASTINGP ERFORMED BY: OJ Waldron[address] [place] [id number] Nitrite Ql (U) Negative Normal Comprehens sandra [facility] Medicine Work Phone: Comment on above: PATIENT WAS FASTINGP ERFORMED BY: OJ Waldron6[address] [place] [id number] Nitrite Ql (U) Negative Normal Comprehens sandra Internal Medicine; [facility] Work Phone: Comment on above: PATIENT WAS FASTINGP ERFORMED BY: OJ Mae [address] Roadblin [place] [id number] pH (U) 6.5 [pH] Normal 5.0-7.5 [facility] Work Phone: Comment on above: PATIENT WAS FASTINGP ERFORMED BY: OJ Waldron[address] [place] [id number] Protein Ql (U) Negative Normal Comprehens sandra [facility] Medicine Work Phone: Comment on above: PATIENT WAS FASTINGP ERFORMED BY: OJ Waldron[address] [place] [id number] Protein Ql (U) Negative Normal Comprehens sandra [facility] Medicine; [facility] Work Phone: Comment on above: PATIENT WAS FASTINGP ERFORMED BY: OJ Waldron[address] [facility] SurgeryD[facility] [place] [id number] Specific gravity Relative Density (U) 1.012 1 Normal 1.005-1.03 0 [facility] Work Phone: Comment on above: PATIENT WAS FASTINGP ERFORMED BY: OJ Quiroslin6370 [address]ublin [place] [id number] Urobilinogen (U) [Mass/Vol] 0.2 mg/dL Normal 0.2-1.0 [facility]; [facility] Work Phone: Comment on above: PATIENT WAS FASTINGP ERFORMED BY: OJ [facility] Henuxm1151 [address]Dublin [place] [id number] Urobilinogen Test strip mass conc (U) 0.2 mg/dL Normal 0.2-1.0 Comprehensiv e Internal Medicine Work Phone: Comment on above: PATIENT WAS FASTINGP ERFORMED BY: [facility] Iodmcp0247 [address]Dublin [place] [id number] Office Visit: Carpal Tunnelo n 09-27-2017 Dietary management education, guidance, and counseling (procedure) yes Invalid Interpretation Code [facility] Work Phone: Documentation of current medications (procedure) Done Invalid Interpretation Code [facility] [employer] Work Phone: Fall risk assessment No Invalid Interpretation Code [facility] Work Phone: Tobacco use CPHS Never smoker Invalid Interpretation Code [facility] Work Phone: HAND; MIN 3 VIEWSon 09-10-20 17 HAND; MIN 3 VIEWS Name: OMAIRA OLIVER STUDY:HAND; MIN 3 VIEWS; 09/10/2017 2:52 pm INDICATION:Signs/Symptoms : r/o erosions. COMPARISON:None. 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 Scattered IP degenerative changes are present. Noperiarticular erosions are seen. IMPRESSION:No periarticular erosions of the hands identified.Scattered degenerative changes with most pronounced involvement ofthe bases of the thumbs. Electronically signed by: ROBY MORGAN MD Normal [facility] LIPID PANEL ([id number])Ordered B y: Property Staff Accountant on 07-12-2017 Cholesterol in HDL mass conc 85 mg/dL Normal [facility] Work Phone: Comment on above: PATIENT WAS FASTINGP ERFORMED BY: OJ [facility] Uwsgaz1055 [address] [facility]in [place] [id number] Cholesterol in LDL mass conc 145 mg/dL Abnormal 0-99 [facility] Work Phone: Comment on above: PATIENT WAS FASTINGP ERFORMED BY: OJ [facility] Beerue1051 [facility]in [place] [id number] Cholesterol in LDL/Cholesterol in HDL mass ratio 1.7 {ratio_units} Normal 0.0-3.2 [facility] Work Phone: Comment on above: LDL/HDL Ratio Men Wo men 1/2 Avg.Risk 1.0 1.5 Avg.Risk 3.6 3.2 2X Avg.Risk 6.2 5.0 3X Avg.Risk 8.0 6.1 PATIENT WAS FASTINGP ERFORMED BY: OJ [facility] Ndsajw0658 [facility] [id number] Cholesterol in VLDL mass conc 13 mg/dL Normal 5-40 [facility] Work Phone: Comment on above: PATIENT WAS FASTINGP ERFORMED BY: OJ [facility] Vslrly7574 [facility] [id number] Cholesterol mass conc 243 mg/dL Abnormal 100-199 [facility] prehensive Internal Medicine Work Phone: Comment on above: PATIENT WAS FASTINGP ERFORMED BY: OJ [facility] Fovzhc5504 [facility] [id number] Triglyceride mass conc 66 mg/dL Normal 0-149 [facility] Work Phone: Comment on above: PATIENT WAS FASTINGP ERFORMED BY: OJ [facility] Qqppwn5635 [address] [facility] [id number] Office Visit: Kolby aguilera 06-26-2017 Breast Mammogram screening Normal Bilateral Invalid Interpretation Code [facility] Work Phone: ANCA WITH REFLEX TO MPO, PR3 on 06-06-2017 ANCA WITH REFLEX TO MPO, PR3 <1:20 Normal <1:20 [facility] Comment on above: Result Comment: The ANCA IFA is <1:20; therefore, no further testing will beperformed.INTERPRETIVE INFORMATION: Anti-Neutrophil Cyto Ab, IgGNeutrophil Cytoplasmic Antibodies (C-ANCA = granular cytoplasmicstaining, P-ANCA = perinuclear staining) are found in the serum ofover 90 percent of patients with certain necrotizing systemicvasculitides, and usually in less than 5 percent of patients withcollagen vascular disease or arthritis.Performed by [facility],[address] [place] [address] [email or web address], Ad Harden MD - Lab. Director Performed By: #### A EZRA ####[facility] [place], [place] [phone] GALILEA PANELon 06-05-2017 ANTINUCLEAR ANTIBODY Negative Normal NEGATIVE [facility] Comment on above: Performed By: #### A NAP2 ####[facility], [place] [phone] ANTI-CENTROMERE <0.2 Normal [facility] Comment on above: Result Comment: REF VALUES< 1.0 = NEGATIVE>=1.0 = POSITIVE Performed By: #### A NAP2 ####[facility], [place] [phone] ANTI-CHROMATIN 0.3 AI Normal [facility] Comment on above: Result Comment: REF VALUES< 1.0 = NEGATIVE>=1.0 = POSITIVE Performed By: #### A NAP2 ####[facility], [place] [phone] ANTI-DNA [DS] 2.0 IU/mL Normal [facility] Comment on above: Result Comment: REF VALUESNEGATIVE: <= 4 IU/MLEQUIVOCAL: 5- 9 IU/MLPOSITIVE: >=10 IU/ML Performed By: #### A NAP2 ####[facility], [place] [phone] ANTI-SHAWN-1 <0.2 Normal [facility] Comment on above: Result Comment: REF VALUES< 1.0 = NEGATIVE>=1.0 = POSITIVE Performed By: #### A NAP2 ####[facility], [place] [phone] ANTI-RIBOSOMAL P <0.2 Normal [facility] Comment on above: Result Comment: REF VALUES< 1.0 = NEGATIVE>=1.0 = POSITIVE Performed By: #### A NAP2 ####[facility], [place] [phone] ANTI-VIDEO COORDINATOR <0.2 Normal [facility] Comment on above: Result Comment: REF VALUES< 1.0 = NEGATIVE>=1.0 = POSITIVE Performed By: #### A NAP2 ####[facility], [place] [phone] ANTI-SCL-70 <0.2 Normal [facility] Comment on above: Result Comment: REF VALUES< 1.0 = NEGATIVE>=1.0 = POSITIVE Performed By: #### A NAP2 ####[facility], [place] [phone] ANTI-SM <0.2 Normal [facility] Comment on above: Result Comment: REF VALUES< 1.0 = NEGATIVE>=1.0 = POSITIVE Performed By: #### A NAP2 ####[facility], [place] [phone] ANTI-SM/VIDEO COORDINATOR <0.2 Normal [facility] Comment on above: Result Comment: REF VALUES< 1.0 = NEGATIVE>=1.0 = POSITIVE Performed By: #### A NAP2 ####[facility], [place] [phone] ANTI-SSA <0.2 Normal [facility] Comment on above: Result Comment: REF VALUES< 1.0 = NEGATIVE>=1.0 = POSITIVE Performed By: #### A NAP2 ####[facility], [place] [phone] ANTI-SSB <0.2 Normal [facility] Comment on above: Result Comment: REF VALUES< 1.0 = NEGATIVE>=1.0 = POSITIVE Performed By: #### A NAP2 ####[facility], [place] [phone] C-REACTIVE PROTEINon 017 C reactive protein (CRP) 0.18 mg/dL Normal [facility] Comment on above: Result Comment: REF VALUE< 1.00 Performed By: #### C RP ####[facility], [place] [phone] CITRULLINE ANTIBODYon 2016 CITRULLINE ANTIBODY 18 U/ML Abnormal [facility] Comment on above: Result Comment: THE TEST FOR ANTIBODIES SPECIFIC FOR CYCLICCITRULLINATED PEPTIDE (CCP) HAS SHOWN TO BEVALUABLE IN THE DIAGNOSIS OF RHEUMATOIDARTHRITIS. THE DIAGNOSTIC VALUE OFANTIBODIES TO CCP IN JUVENILE RHEUMATOIDARTHRITIS PATIENTS HAS NOT BEEN DETERMINED.ANTIBODIES TO CENTROMERE OR SS-A AND MYELOMAIGG MAY BE REACTIVE IN THIS ASSAY. REF VALUES NEGATIVE < 3 U/ML POSITIVE >=3 U/ML Performed By: #### C ITAB ####[facility], [place] [phone] ESR-WESTERGRENon 06-05-2017 ESR-WESTERGREN 19 mm/h Normal 0 - 30 [facility] Comment on above: Performed By: #### E SRWS ####[facility], [place] [phone] LIBERTY PATH REVIEWon 06-05-2017 PATH REVIEW-LIBERTY FER Normal [facility] Comment on above: Result Comment: By h er/his signature above, the Pathologist listed as making the final interpretation certifies that she/he has personally reviewed this case. Performed By: #### P R34 ####[facility], [place] [phone] PROTEIN ELECTROPHORESIS + IF , SERUMon 06-05-2017 IMMUNOFIXATION INTERP NORMAL Normal [facility] Comment on above: Performed By: #### I FE2 ####[facility], [place] [phone] INTERPRETATION NORMAL Normal [facility] Comment on above: Performed By: #### I FE2 ####[facility], [place] [phone] MONOCLONAL PROTEIN NONE DETECTED Normal [facility] Comment on above: Performed By: #### I FE2 ####[facility], [place] [phone] Albumin 4.3 g/dL Normal 3.4 - 5.0 [facility] Comment on above: Performed By: #### I FE2 ####[facility], [place] [phone] ALPHA 1 GLOBULIN 0.3 g/dL Normal 0.2 - 0.6 [facility] Comment on above: Performed By: #### I FE2 ####[facility], [place] [phone] ALPHA 2 GLOBULIN 0.6 g/dL Normal 0.4 - 1.1 [facility] Comment on above: Performed By: #### I FE2 ####[facility], [place] [phone] BETA GLOBULIN 0.9 g/dL Normal 0.5 - 1.2 [facility] Comment on above: Performed By: #### I FE2 ####[facility], [place] [phone] GAMMA GLOBULIN 1.3 g/dL Normal 0.5 - 1.4 [facility] Comment on above: Performed By: #### I FE2 ####[facility], [place] [phone] Protein 7.4 g/dL Normal 6.4 - 8.2 [facility] Comment on above: Performed By: #### I FE2 ####[facility], [place] [phone] SPE PATH REVIEWon 06-05-2017 PATH REVIEW-SPE FER Normal [facility] Comment on above: Result Comment: By h er/his signature above, the Pathologist listed as making the final interpretation certifies that she/he has personally reviewed this case. Performed By: #### P R12 ####[facility], [place] [phone] URIC ACIDon 06-05-2017 Urate 3.2 mg/dL Normal 2.3 - 6.7 [facility] Comment on above: Result Comment: Doretha puncture immediately after or during the administration of Metamizole may lead to falsely low results. Testing should be performed immediately prior to Metamizole dosing. Performed By: #### U GAVIN ####[facility], [place] [phone] Office Visit: Carpal Tunnelo n 05-26-2017 Colonoscopy (procedure) Abnormal Invalid Interpretation Code [facility] Work Phone: CALCIFIDIOL ([id number]) VIT D 25 Ordered By: Property Staff Accountant on 04-26-2017 25-Hydroxyvitamin D2+25-Hydroxyvitamin D3 mass conc 72.3 ng/mL Normal 30.0-100.0 [facility] Work Phone: Comment on above: Vitamin D deficiency has been defined by the [place] ofMedicine and an Endocrine Society practice guideline as alevel of serum 25-OH vitamin D less than 20 ng/mL (1,2).The Endocrine Society went on to further define vitamin Dinsufficiency as a level between 21 and 29 ng/mL (2).1. IOM ([place] of Medicine). 2010. Dietary reference intakes for calcium and D. [place]: The National Academies Press.2. Holick MF, Brittny [place], Unique CHEUNG, et al. Evaluation, treatment, and prevention of vitamin D deficiency: an Endocrine Society clinical practice guideline. JCEM. 2010; 96(7):1911-30. PERFORMED BY: [facility] [id number] [facility] [id number] Information: [id number] URINE ARCHIE CULTURE-IDENTIFICA [place] ([id number])Ordered By: Property Staff Accountant on 01-25-2017 Bacteria identified Cx Nom (U) Final report Abnormal [facility] Work Phone: Comment on above: PATIENT NOT FASTINGP ERFORMED BY: [employer] [facility] [id number] [facility]TimeC[facility] [id number] Information: SRC:UC Bacteria identified Cx Nom (U) Enterococcus faecalis Abnormal Comprehens sandra [facility] Work Phone: Comment on above: Greater than 100,000 colony forming units per mLNote: this isolate is vancomycin-susceptible.This information is provided for epidemiologic purposes only:vancomycin is not among the antibiotics recommended for therapyof urinary tract infections caused by Enterococcus.For Enterococcus species, cephalosporins, aminoglycosides (except forhigh-level resistance screening), clindamycin, and trimethoprim-sulfamethoxazole are not effective clinically. Fluoroquinolones areused primarily for treating urinary tract infections. (CLSI, S939-I90,2009) PATIENT NOT FASTINGP ERFORMED BY: [facility] [id number] [facility]TimeC[facility] [id number] Information: SRC: Bacteria identified Cx Nom (U) PSAV Abnormal [facility] Work Phone: Comment on above: Pseudomonas aerugino sa25,000-50,000 colony forming units per mL S = Susceptible; I = Intermediate; R = Resistant P = Positive; N = Negative MICS are expressed in micrograms per mL Antibiotic RSLT#1 RSLT#2 RSLT#3 RSLT#4Amikacin SCefepime SCeftazidime SCiprofloxacin S SGentamicin SImipenem SLevofloxacin S SMeropenem SNitrofurantoin SPenicillin SPiperacillin STetracycline RTicarcillin STobramycin SVancomycin S PATIENT NOT FASTINGP ERFORMED BY: OJ [facility] Htrpew8751 [facility] [id number] Information: SRC:RYLAN Urinalysis, Office ([id number])Or dered By: KAMILAH Rosen on 01-25-2017 Bilirubin Ql (U) Negative Normal Comprehe nsive Internal Medicine Work Phone: Bilirubin Ql (U) Negative Normal Comprehe nsive Internal Medicine; [facility] Work Phone: Glucose Test strip (U) [Mass/Vol] Negative Normal [facility]; [facility] Work Phone: Glucose Test strip mass conc (U) Negative Normal [facility] Work Phone: Hemoglobin Ql (U) Hemolyzed Trace Normal Co mprehensive [facility] Medicine Work Phone: Ketones Ql (U) Negative Normal Comprehens [facility] Work Phone: Ketones Ql (U) Negative Normal Comprehens [facility]; [facility] Work Phone: Leukocyte esterase Test strip Ql (U) Moderate Normal [facility] Work Phone: Nitrite Ql (U) Negative Normal Comprehens [facility] Work Phone: Nitrite Ql (U) Negative Normal Comprehens [facility]; [facility] Work Phone: pH (U) 6.5 [pH] Normal [facility] Work Phone: Protein Ql (U) Negative Normal Comprehens [facility] Work Phone: Protein Ql (U) Negative Normal Comprehens [facility]; [facility] Work Phone: Specific gravity Relative Density (U) 1.010 1 Normal Comprehensi ve Internal Medicine Work Phone: Urobilinogen mass/time (24H U) 2 mg/dL Normal [facility] Work Phone: Replaced Document: Midmark E CG Observationson 01-04-2017 EKG QRS axis -10 deg Invalid Interpretation Code [facility] Work Phone: Interpretation Sinus Rhythm WITHIN NORMAL LIMITS Invalid Interpretation Code [facility] Work Phone: P Phenix 41 deg Invalid Interpretation Code [facility] [employer] Work Phone: W[place] Interval 150 ms Invalid Interpretation Code [facility] [employer] Work Phone: Pulse (Heart Rate) 76 /min Invalid Interpretation Code [facility] [employer] Work Phone: QRS Duration 90 ms Invalid Interpretation Code [facility] [employer] Work Phone: QT Interval new path ms Invalid Interpretation Code [facility] [employer] Work Phone: QTc Coughlin 428 ms Invalid Interpretation Code [facility] [employer] Work Phone: T Phenix -1 deg Invalid Interpretation Code [facility] [employer] Work Phone: Clinical Lists Update: Prelo carroter 01-03-2017 Left ventricular Ejection fraction 60 % Invalid Interpretation Code [facility] [employer] Work Phone: Clinical Lists Update: Prelo carroter 12-20-2016 Cholesterol 203 mg/dL Invalid Interpretation Code [facility] [employer] Work Phone: HDL Cholesterol 72 mg/dL Invalid Interpretation Code [facility] [employer] Work Phone: LDL Cholesterol 114 mg/dL Invalid Interpretation Code [facility] [employer] Work Phone: Triglyceride 83 mg/dL Invalid Interpretation Code [facility] [employer] Work Phone: BNTP ([phone])Ordered By: Syst em Staffing Administrator on 12-19-2016 Natriuretic peptide B mass conc (Bld) 141.6 pg/mL Abnormal 0.0-100.0 [facility] Work Phone: Comment on above: PATIENT WAS FASTINGP ERFORMED BY: [facility] [facility] [id number] CALCIFEDIOL ([id number])Ordered B y: Property Staff Accountant on 12-19-2016 25-Hydroxyvitamin D2+25-Hydroxyvitamin D3 mass conc 79.2 ng/mL Normal 30.0-100.0 [facility] Work Phone: Comment on above: Vitamin D deficiency has been defined by the [place] ofMedicine and an Endocrine Society practice guideline as alevel of serum 25-OH vitamin D less than 20 ng/mL (1,2).The Endocrine Society went on to further define vitamin Dinsufficiency as a level between 21 and 29 ng/mL (2).1. IOM ([place] of Medicine). 2010. Dietary reference intakes for calcium and D. [place]: The National Academies Press.2. Akash MF, Brittny NC, Unique CHEUNG, et al. Evaluation, treatment, and prevention of vitamin D deficiency: an Endocrine Society clinical practice guideline. JCEM. 2010; 96(7):1911-30. PATIENT WAS FASTINGP ERFORMED BY: CB [facility] Mgievu7746 [address] RoadDublin [place] [id number] CBC, PLATELETS & AUT DIFF ([id number] [id number])Ordered By: Property Staff Accountant on 12-19-2016 Basophils #/vol (Bld) 0.0 {x10E3/uL} Normal 0.0-0.2 [facility] Work Phone: Comment on above: PATIENT WAS FASTINGP ERFORMED BY: CB [facility] Unbzqg3140 [address] RoadDublin [place] [id number] Basophils (Bld) [#/Vol] 0.0 10*3/uL Normal 0.0-0.2 [facility]; [facility] Work Phone: Comment on above: PATIENT WAS FASTINGP ERFORMED BY: CB [facility] Wtihtq1150 [address] RoadDublin [place] [id number] Basophils/100 WBC (Bld) 1 % Normal [facility] Work Phone: Comment on above: PATIENT WAS FASTINGP ERFORMED BY: CB [facility] Uujkcp3016 [address] RoadDublin [place] [id number] Eosinophils #/vol (Bld) 0.2 {x10E3/uL} Normal 0.0-0.4 [facility] Work Phone: Comment on above: PATIENT WAS FASTINGP ERFORMED BY: CB [facility] Hcvjqa2134 [address] RoadDublin [place] [id number] Eosinophils (Bld) [#/Vol] 0.2 10*3/uL Normal 0.0-0.4 [facility]; [facility] Work Phone: Comment on above: PATIENT WAS FASTINGP ERFORMED BY: OJ Waldron[address] [facility] [place] [id number] Eosinophils/100 WBC (Bld) 4 % Normal [facility] Work Phone: Comment on above: PATIENT WAS FASTINGP ERFORMED BY: OJ Merlyn Lincoln[address] [facility] [id number] Erythrocyte distribution width Ratio (RBC) 13.4 % Normal 12.3-15.4 [facility] Work Phone: Comment on above: PATIENT WAS FASTINGP ERFORMED BY: OJ Merlyn Waldron[address] [facility] [id number] Hematocrit Volume Fraction (Bld) 35.2 % Normal 34.0-46.6 [facility] Work Phone: Comment on above: PATIENT WAS FASTINGP ERFORMED BY: OJ Linh Srouns[address] [facility] [id number] Immature granulocytes #/vol (Bld) 0.0 {x10E3/uL} Normal 0.0-0.1 [facility] Work Phone: Comment on above: PATIENT WAS FASTINGP ERFORMED BY: OJ Merlyn Waldron[address] [facility] [place] [id number] Immature granulocytes (Bld) [#/Vol] 0.0 10*3/uL Normal 0.0-0.1 [facility]; [facility] Work Phone: Comment on above: PATIENT WAS FASTINGP ERFORMED BY: [facility] Nojbmj[address] [facility]in [place] [id number] Immature granulocytes/100 WBC (Bld) 0 % Normal [facility] Work Phone: Comment on above: PATIENT WAS FASTINGP ERFORMED BY: [facility] Kzfgdi8942 [address] RoadDublin [place] [id number] Lymphocytes #/vol (Bld) 1.1 {x10E3/uL} Normal 0.7-3.1 [facility] Work Phone: Comment on above: PATIENT WAS FASTINGP ERFORMED BY: [facility] Kizmnf6[address] [facility] [id number] Lymphocytes (Bld) [#/Vol] 1.1 10*3/uL Normal 0.7-3.1 [facility]; [facility] Work Phone: Comment on above: PATIENT WAS FASTINGP ERFORMED BY: LabCoMatheny Medical and Educational CenterDjpvwi4[address] [facility] [id number] Lymphocytes/100 WBC (Bld) 25 % Normal [facility] Work Phone: Comment on above: PATIENT WAS FASTINGP ERFORMED BY: [facility]6[address] [facility] [id number] MCH Entitic mass (RBC) 28.1 pg Normal 26.6-33.0 [facility] Work Phone: Comment on above: PATIENT WAS FASTINGP ERFORMED BY: [facility]6[address] [facility] [id number] MCHC mass conc (RBC) 31.8 g/dL Normal 31.5-35.7 [facility] Work Phone: Comment on above: PATIENT WAS FASTINGP ERFORMED BY: [facility]6[address] [facility] [id number] MCV Entitic volume (RBC) 88 fL Normal 79-97 [facility] Work Phone: Comment on above: PATIENT WAS FASTINGP ERFORMED BY: [facility]6[address] [facility] [id number] Monocytes #/vol (Bld) 0.4 {x10E3/uL} Normal 0.1-0.9 [facility] Work Phone: Comment on above: PATIENT WAS FASTINGP ERFORMED BY: [facility] Oldswi4[address] [facility] [id number] Monocytes (Bld) [#/Vol] 0.4 10*3/uL Normal 0.1-0.9 [facility]; [facility] Work Phone: Comment on above: PATIENT WAS FASTINGP ERFORMED BY: OJ LabCocheo WaldronAlzxsr6043 [address] RoadDublin [place] [id number] Monocytes/100 WBC (Bld) 9 % Normal [facility] Work Phone: Comment on above: PATIENT WAS FASTINGP ERFORMED BY: OJ LabCocheo QuirosJzbgrm6700 [address] RoadDublin [place] [id number] Neutrophils #/vol (Bld) 2.8 {x10E3/uL} Normal 1.4-7.0 [facility] Work Phone: Comment on above: PATIENT WAS FASTINGP ERFORMED BY: OJ LabCocheo WaldronRmdgqt6[address]Dublin [place] [id number] Neutrophils (Bld) [#/Vol] 2.8 10*3/uL Normal 1.4-7.0 [facility]; [facility] Work Phone: Comment on above: PATIENT WAS FASTINGP ERFORMED BY: OJ Linhcheo QuirosXtzlty7[address] Roadblin [place] [id number] Neutrophils/100 WBC (Bld) 61 % Normal [facility] Work Phone: Comment on above: PATIENT WAS FASTINGP ERFORMED BY: OJ Merlyn Waldron[address]bl[address] [place] [id number] Platelets #/vol (Bld) 237 {x10E3/uL} Normal 150-379 [facility] Work Phone: Comment on above: PATIENT WAS FASTINGP ERFORMED BY: OJ [facility] Czbtkp4986 [address] Roadblin [place] [id number] Platelets (Bld) [#/Vol] 237 10*3/uL Normal 150-379 [facility]; [facility] Work Phone: Comment on above: PATIENT WAS FASTINGP ERFORMED BY: OJ LabCocheo QuirosDhljvv3279 [address]Dublin [place] [id number] RBC #/vol (Bld) 3.98 {x10E6/uL} Normal 3.77-5.28 [facility] Internal [facility] Work Phone: Comment on above: PATIENT WAS FASTINGP ERFORMED BY: CB [facility] Wivddk7[address] RoadDublin [place] [id number] RBC (Bld) [#/Vol] 3.98 10*6/uL Normal 3.77-5.28 [facility]; [facility] Work Phone: Comment on above: PATIENT WAS FASTINGP ERFORMED BY: CB [facility] Rrsxcm1516 [address] RoadDublin [place] [id number] WBC #/vol (Bld) 4.6 {x10E3/uL} Normal 3.4-10.8 [facility] Work Phone: Comment on above: PATIENT WAS FASTINGP ERFORMED BY: CB [facility] Nnewft9414 [address]Dublin [place] [id number] WBC (Bld) [#/Vol] 4.6 10*3/uL Normal 3.4-10.8 [facility]; [facility] Work Phone: Comment on above: PATIENT WAS FASTINGP ERFORMED BY: OJ [facility] Pdydzr8920 [address] RoadDublin [place] [id number] Clinical Lists Update: Prelo carroter 12-19-2016 Alanine aminotransferase (ALT) 16 U/L Normal 0-32 [facility] Work Phone: Comment on above: PATIENT WAS FASTINGP ERFORMED BY: CB [facility] Thebci9[address] RoadDublin [place] [id number] Aspartate aminotransferase (AST) 20 U/L Normal 0-40 [facility] Work Phone: Comment on above: PATIENT WAS FASTINGP ERFORMED BY: CB [facility] Plrsvn2251 [address] RoadDublin [place] [id number] Bilirubin (total) 0.3 mg/dL Normal 0.0-1.2 [facility] Work Phone: Comment on above: PATIENT WAS FASTINGP ERFORMED BY: CB [facility] Zoitiz12[address] RoadDublin [place] [id number] BUN/Creatinine Ratio 11 mg/mg Normal 11-26 [facility] Work Phone: Comment on above: PATIENT WAS FASTINGP ERFORMED BY: OJ [facility] Bxlfxm6[address] RoadDublin [place] [id number] Calcium 9.2 mg/dL Normal 8.7-10.3 [facility] Work Phone: Comment on above: PATIENT WAS FASTINGP ERFORMED BY: OJ [facility] Ibwhgk3678 [address] RoadDublin [place] [id number] Chloride 101 mmol/L Normal 96-106 [facility] Work Phone: Comment on above: PATIENT WAS FASTINGP ERFORMED BY: OJ [facility] Plrruu3531 [address] RoadDublin [place] [id number] CO2 26 mmol/L Normal 18-29 [facility] Work Phone: Comment on above: PATIENT WAS FASTINGP ERFORMED BY: OJ [facility] Unhxfi15[address]Dublin [place] [id number] Creatinine 0.74 mg/dL Normal 0.57-1.00 [facility] Work Phone: Comment on above: PATIENT WAS FASTINGP ERFORMED BY: OJ [facility] Fqllux5078 [address] RoadDublin [place] [id number] Glucose mass conc 87 mg/dL Normal 65-99 [facility] Work Phone: Comment on above: PATIENT WAS FASTINGP ERFORMED BY: OJ [facility] Kjjggk9670 [address] RoadDublin [place] [id number] Hemoglobin mass conc (Bld) 11.2 g/dL Normal 11.1-15.9 [facility] Work Phone: Comment on above: PATIENT WAS FASTINGP ERFORMED BY: OJ [facility] Boicue4481 [address] RoadDublin [place] [id number] Potassium molar conc 3.9 mmol/L Normal 3.5-5.2 [facility] Work Phone: Comment on above: PATIENT WAS FASTINGP ERFORMED BY: OJ [facility] Jqkwxg2196 [address]Dublin [place] [id number] Protein 6.5 g/dL Normal 6.0-8.5 [facility] Work Phone: Comment on above: PATIENT WAS FASTINGP ERFORMED BY: OJ Waldron[address] Atmosferiqblin [place] [id number] Sodium 140 mmol/L Normal 134-144 [facility] Work Phone: Comment on above: PATIENT WAS FASTINGP ERFORMED BY: OJ Waldron[address]ublin [place] [id number] Urea nitrogen 8 mg/dL Normal 8-27 [facility] Work Phone: Comment on above: PATIENT WAS FASTINGP ERFORMED BY: OJ Waldron[address] AtmosferiqAtrium Health Waxhawin [place] [id number] Hematocrit (HCT) 35.2 % Invalid Interpretation Code [facility] Work Phone: Platelets 237 10*3/mm3 Invalid Interpretation Code [facility] Work Phone: WBC (Leukocytes) 4.6 10*3/uL Invalid Interpretation Code [facility] Work Phone: FERRITIN ([phone])Ordered By: Property Staff Accountant on 12-19-2016 Ferritin mass conc 57 ng/mL Normal 15-150 [facility] Internal Medicine Work Phone: Comment on above: PATIENT WAS FASTINGP ERFORMED BY: OJ Quiroslin[address] [facility]mosferiqAngel [facility] [id number] IRON & TOTAL IRON BINDING CA PACITY ([id number])Ordered By: Property Staff Accountant on 12-19-2016 Iron binding capacity mass conc 317 ug/dL Normal 250-450 [facility] Work Phone: Comment on above: PATIENT WAS FASTINGP ERFORMED BY: OJ Quiroslin[address]Dublin [place] [id number] Iron binding capacity.unsaturated mass conc 255 ug/dL Normal 118-369 [facility] Work Phone: Comment on above: PATIENT WAS FASTINGP ERFORMED BY: OJ Quiroslin[address]Dublin [place] [id number] Iron mass conc 62 ug/dL Normal 27-139 Com[facility] Internal [facility] Work Phone: Comment on above: PATIENT WAS FASTINGP ERFORMED BY: OJ Waldron[address] [facility] SurgeryDublin [place] [id number] Iron saturation mass fraction 20 % Normal 15-55 [facility] Work Phone: Comment on above: PATIENT WAS FASTINGP ERFORMED BY: OJ Waldron[address] [facility] Hospitalblin [place] [id number] LIPID PANEL ([id number])Ordered B y: Property Staff Accountant on 12-19-2016 Cholesterol in HDL mass conc 72 mg/dL Normal [facility] Work Phone: Comment on above: PATIENT WAS FASTINGP ERFORMED BY: OJ Waldron[address] [facility] [id number] Cholesterol in LDL mass conc 114 mg/dL Abnormal 0-99 [facility] Work Phone: Comment on above: PATIENT WAS FASTINGP ERFORMED BY: OJ Waldron[address] [facility] [id number] Cholesterol in LDL/Cholesterol in HDL mass ratio 1.6 {ratio_units} Normal 0.0-3.2 [facility] Work Phone: Comment on above: LDL/HDL Ratio Men Wo men 1/2 Avg.Risk 1.0 1.5 Avg.Risk 3.6 3.2 2X Avg.Risk 6.2 5.0 3X Avg.Risk 8.0 6.1 PATIENT WAS FASTINGP ERFORMED BY: OJ Waldron[address] [facility] [id number] Cholesterol in VLDL mass conc 17 mg/dL Normal 5-40 [facility] Work Phone: Comment on above: PATIENT WAS FASTINGP ERFORMED BY: OJ Quiroslin[address] [facility] Hospitalblin [place] [id number] Cholesterol mass conc 203 mg/dL Abnormal 100-199 Com prehensive Internal Medicine Work Phone: Comment on above: PATIENT WAS FASTINGP ERFORMED BY: OJ Quiroslin[address] [facility] [id number] Triglyceride mass conc 83 mg/dL Normal 0-149 [facility] Work Phone: Comment on above: PATIENT WAS FASTINGP ERFORMED BY: OJ [facility] Dxpmnv7231 [address] RoadDublin [place] [id number] METABOLIC PANEL, COMPREHENSI VE ([id number])Ordered By: Property Staff Accountant on 12-19-2016 Albumin mass conc 4.0 g/dL Normal 3.5-4.8 Compreh [facility] Work Phone: Comment on above: PATIENT WAS FASTINGP ERFORMED BY: CB [facility] Jglwyh8323 [address]Dublin [place] [id number] Albumin/Globulin mass ratio 1.6 {ratio} Normal 1.1-2.5 [facility] Internal Medicine Work Phone: Comment on above: PATIENT WAS FASTINGP ERFORMED BY: [facility] Hvzjsm1267 [address] Roadblin [place] [id number] ALP [Catalytic activity/Vol] 58 U/L Normal 39-117 [facility] Internal [facility]; [facility] Work Phone: Comment on above: PATIENT WAS FASTINGP ERFORMED BY: [facility] Ntoegc5681 [address] RoadDublin [place] [id number] ALP enzyme act/vol 58 [iU]/L Normal 39-117 [facility] Internal [facility] Work Phone: Comment on above: PATIENT WAS FASTINGP ERFORMED BY: [facility] Vbirzc3875 [address] RoadDublin [place] [id number] ALT enzyme act/vol 16 [iU]/L Normal 0-32 [facility] Work Phone: Comment on above: PATIENT WAS FASTINGP ERFORMED BY: CB [facility] Eeytta1471 [address] RoadDublin [place] [id number] AST enzyme act/vol 20 [iU]/L Normal 0-40 [facility] Work Phone: Comment on above: PATIENT WAS FASTINGP ERFORMED BY: CB [facility] Jkkgpr3903 [address] RoadDublin [place] [id number] GFR/1.73 sq M predicted among blacks CKD-EPI vol rate/area (S/P/Bld) 92 mL/min/1.73 Normal Comprehensiv e Internal Medicine Work Phone: Comment on above: PATIENT WAS FASTINGP ERFORMED BY: OJ Quiroslin6370 [facility]in [place] [id number] GFR/1.73 sq M predicted among non-blacks CKD-EPI vol rate/area (S/P/Bld) 80 mL/min/1.73 Normal [facility] Work Phone: Comment on above: PATIENT WAS FASTINGP ERFORMED BY: OJ LabSt[facility] Fwzqlp7516 [facility] [id number] Globulin mass conc (S) 2.5 g/dL Normal 1.5-4.5 [facility] Work Phone: Comment on above: PATIENT WAS FASTINGP ERFORMED BY: LabSt. [facility] Lcfnov4144 [facility] [id number] MICROALBUMINOrdered By: Syst em Staffing Administrator on 12-19-2016 Albumin DL <= 20 mg/L mass conc (U) 9.9 ug/mL Normal [facility] Work Phone: Comment on above: PATIENT NOT FASTINGP ERFORMED BY: OJ Melton Khlsgk2733 [facility] [id number] Albumin/Creatinine mass ratio (U) 28.6 {mg/g_creat} Normal 0.0-30.0 [facility] Work Phone: Comment on above: PATIENT NOT FASTINGP ERFORMED BY: OJ JonesSt. [facility] Ngfdzy4130 [facility] [id number] Creatinine mass conc (U) 34.6 mg/dL Normal [facility] Work Phone: Comment on above: PATIENT NOT FASTINGP ERFORMED BY: OJ LabSt. [facility] Bwqhyq8639 [facility] [id number] TSH (THYROID STIMULATING HOR KASSIDY) ([id number])Ordered By: Property Staff Accountant on 12-19-2016 Thyrotropin Qn 1.770 {uIU/mL} Normal 0.450-4.50 0 [facility] Work Phone: Comment on above: PATIENT WAS FASTINGP ERFORMED BY: OJ LabMarizacheo QuirosAfnlau6[address]Dublin [place] [id number] URINALYSIS W MICROSCOPY ([phone])Ordered By: Property Staff Accountant on 12-19-2016 Appearance Nom (U) Clear Normal Compre hensive Internal Medicine Work Phone: Comment on above: PATIENT NOT FASTINGP ERFORMED BY: OJ Linhcheo QuirosFlcfgz1478 [address]Dublin [place] [id number] Bilirubin Ql (U) Negative Normal Comprehe nsive Internal Medicine Work Phone: Comment on above: PATIENT NOT FASTINGP ERFORMED BY: OJ LabDerrick QuirosTwuyih2583 [address]Dublin [place] [id number] Bilirubin Ql (U) Negative Normal Comprehe nsive Internal Medicine; [facility] Work Phone: Comment on above: PATIENT NOT FASTINGP ERFORMED BY: OJ Quiroslin[address]Dublin [place] [id number] Color Nom (U) Yellow Normal Comprehensi ve Internal Medicine Work Phone: Comment on above: PATIENT NOT FASTINGP ERFORMED BY: OJ RobertDerrick QuirosNonijo26[address]Dublin [place] [id number] Glucose Ql (U) Negative Normal Comprehens sandra Internal Medicine Work Phone: Comment on above: PATIENT NOT FASTINGP ERFORMED BY: OJ Quiroslin[address] [place] [id number] Glucose Ql (U) Negative Normal Comprehens sandra Internal [facility]; [facility] Work Phone: Comment on above: PATIENT NOT FASTINGP ERFORMED BY: OJ LabCocheo Zhzksk4073 [address]Dublin [place] [id number] Hemoglobin Ql (U) Negative Normal Compreh ensive Internal Medicine Work Phone: Comment on above: PATIENT NOT FASTINGP ERFORMED BY: OJ LabCocheo QuirosRjatcp24[address]Dublin [place] [id number] Hemoglobin Ql (U) Negative Normal Compreh ensive Internal Medicine; [facility] Work Phone: Comment on above: PATIENT NOT FASTINGP ERFORMED BY: OJ Waldron[address] [place] [id number] Ketones Ql (U) Negative Normal Comprehens sandra Internal Medicine Work Phone: Comment on above: PATIENT NOT FASTINGP ERFORMED BY: OJ Waldron[address] [place] [id number] Ketones Ql (U) Negative Normal Comprehens sandra [facility]; [facility] Work Phone: Comment on above: PATIENT NOT FASTINGP ERFORMED BY: OJ Waldron[address] [place] [id number] Leukocyte esterase Test strip Ql (U) 3+ Abnormal [facility] Work Phone: Comment on above: PATIENT NOT FASTINGP ERFORMED BY: OJ Waldron[address] [place] [id number] Microscopic observation LM Nom (Urine sed) See below: Normal [facility] Work Phone: Comment on above: Microscopic was gasper cated and was performed. PATIENT NOT FASTINGP ERFORMED BY: OJ Waldron[address] [place] [id number] Nitrite Ql (U) Negative Normal Comprehens sandra [facility] Medicine Work Phone: Comment on above: PATIENT NOT FASTINGP ERFORMED BY: OJ Waldron[address] [place] [id number] Nitrite Ql (U) Negative Normal Comprehens sandra [facility]; [facility] Work Phone: Comment on above: PATIENT NOT FASTINGP ERFORMED BY: OJ Quiroslin[address]Dublin [place] [id number] pH (U) 7.0 [pH] Normal 5.0-7.5 [facility] Work Phone: Comment on above: PATIENT NOT FASTINGP ERFORMED BY: OJ Quiroslin[address] [place] [id number] Protein Ql (U) Negative Normal Comprehens sandra Internal Medicine Work Phone: Comment on above: PATIENT NOT FASTINGP ERFORMED BY: CB [facility] Qxkjgr2766 [address]Dublin [place] [id number] Protein Ql (U) Negative Normal Comprehens sandra [facility]; [facility] Work Phone: Comment on above: PATIENT NOT FASTINGP ERFORMED BY: CB [facility] Fagojv4193 [address]Dublin [place] [id number] Specific gravity Relative Density (U) 1.006 1 Normal 1.005-1.03 0 [facility] Work Phone: Comment on above: PATIENT NOT FASTINGP ERFORMED BY: CB [facility] Obtamb4808 [address]Dublin [place] [id number] Urobilinogen (U) [Mass/Vol] 0.2 mg/dL Normal 0.2-1.0 [facility]; [facility] Work Phone: Comment on above: PATIENT NOT FASTINGP ERFORMED BY: CB [facility] Etdsoh7686 [address]Dublin [place] [id number] Urobilinogen Test strip mass conc (U) 0.2 mg/dL Normal 0.2-1.0 Comprehensiv e Internal Medicine Work Phone: Comment on above: PATIENT NOT FASTINGP ERFORMED BY: CB [facility] Rvlohs0212 [address]Dublin [place] [id number] Office Visit: [facility] willy 11-26-2014 General categories [Interpretation] of Cervical or vaginal smear or scraping by Cyto stain Normal Invalid Interpretation Code [facility] Work Phone: Vital Signs Date Time Vital Sign Value Performing Clinician Facility 05-22-2025 10:10-0400 Diastolic blood pressure 91 mm[Hg] Phillip Wells MD Work Phone: [facility] 05-22-2025 10:10-0400 Heart rate 68 /min Phillip Wells MD Work Phone: [facility] 05-22-2025 10:10-0400 SaO2% (BldA) [Mass fraction] 100 % Phillip Wells MD Work Phone: [employer] 05-22-2025 10:10-0400 Systolic blood pressure 139 mm[Hg] [facility]-22-2025 10:08-0400 Body mass index (BMI) [Ratio] 25.66 kg/m2 Phillip Wells [facility] 05-22-2025 10:08-0400 Body temperature 97.81 [degF] Phillip Wells MD Work Phone: [employer] 05-22-2025 10:08-0400 Body weight 61.6 kg Phillip Wells MD Work Phone: [employer] 03-11-2025 10:13-0400 Body mass index (BMI) [Ratio] 27.3 kg/m2 Phillip [facility] 03-11-2025 10:13-0400 Body temperature 97.59 [degF] Phillip Wells MD Work Phone: [employer] 03-11-2025 10:13-0400 Body weight 65.55 kg Phillip Wells [facility] 03-11-2025 10:13-0400 Heart rate 78 /min Phillip Wells MD [facility] 03-11-2025 10:13-0400 SaO2% (BldA) [Mass fraction] 100 % Phillip Wells MD Work Phone: [facility] 01-22-2025 07:47-0500 Body mass index (BMI) [Ratio] 25.2 kg/m2 Pelon Blackwood DO Work Phone: [facility] 01-22-2025 07:47-0500 Body weight 62.59 kg Pelon Blackwood DO Work Phone: [facility] 01-22-2025 07:47-0500 Diastolic blood pressure 91 mm[Hg] Pelon Vegaer DO Work Phone: [facility] 01-22-2025 07:47-0500 Heart rate 72 /min Pelon Vegaer DO Work Phone: [facility] 01-22-2025 07:47-0500 Respiratory rate 18 /min Pelon Blackwood DO Work Phone: [facility] 01-22-2025 07:47-0500 SaO2% (BldA) [Mass fraction] 100 % Pelon Blackwood DO Work Phone: [facility] 01-22-2025 07:47-0500 Systolic blood pressure 141 mm[Hg] Pelon Vegaer DO Work Phone: [facility] 01-02-2025 13:46-0500 Body mass index (BMI) [Ratio] 25.81 kg/m2 Phillip Wells MD Work Phone: [facility] 01-02-2025 13:46-0500 Body weight 61.96 kg Phillip Wells MD Work Phone: [facility] 10-28-2024 13:42-0500 Body temperature 97.81 [degF] Phillip Wells MD Work Phone: [facility] 10-28-2024 13:42-0500 Diastolic blood pressure 80 mm[Hg] Phillip Wells MD Work Phone: [facility] 10-28-2024 13:42-0500 Heart rate 74 /min Phillip Wells [email or web address] 10-28-2024 13:42-0500 SaO2% (BldA) [Mass fraction] 100 % Phillip Wells MD Work Phone: [facility] 10-28-2024 13:42-0500 Systolic blood pressure 133 mm[Hg] Phillip Wells MD Work Phone: [facility] 10-13-2024 14:58-0500 Body temperature 97.5 [degF] Phillip Wells MD Work Phone: [email or web address] 10-13-2024 14:58-0500 Diastolic blood pressure 85 mm[Hg] Phillip Wells [email or web address] 10-13-2024 14:58-0500 Heart rate 74 /min Phillip Wells MD [email or web address] 10-13-2024 14:58-0500 Respiratory rate 16 /min Phillip Wells MD [email or web address] 10-13-2024 14:58-0500 SaO2% (BldA) [Mass fraction] 98 % Phillip Wells MD [email or web address] 10-13-2024 14:58-0500 Systolic blood pressure 152 mm[Hg] Phillip Wells MD [email or web address] 10-13-2024 09:36-0500 Body height 154.9 cm Phillip Wells MD [email or web address] 10-13-2024 09:36-0500 Body mass index (BMI) [Ratio] 24.75 kg/m2 Phillip Wells MD [email or web address] 10-13-2024 09:36-0500 Body weight 59.42 kg Phillip Wells MD [email or web address] 10-02-2024 15:04-0500 Heart rate 73 /min Nakia MONTELONGO Work Phone: [email or web address] 10-01-2024 15:43-0500 Diastolic blood pressure 84 mm[Hg] Sherri Mercado RD Work Phone: [facility] 10-01-2024 15:43-0500 Heart rate 76 /min Sherri Mercado RD Work Phone: [facility] 10-01-2024 15:43-0500 SaO2% (BldA) [Mass fraction] 99 % Sherri Mercado RD [facility] 10-01-2024 15:43-0500 Systolic blood pressure 162 mm[Hg] Sherri Mercado VALERIE [facility] 10-01-2024 14:25-0500 Body height 154.9 cm Nakia Stafford PROFILING MACHINE SET UP OPERATOR TOOL-BILLING AUDITOR Work Phone: [email or web address] 10-01-2024 14:25-0500 Body mass index (BMI) [Ratio] 24.85 kg/m2 Nakia Stafford PROFILING MACHINE SET UP OPERATOR TOOL-BILLING AUDITOR Work [facility] 10-01-2024 14:25-0500 Body temperature 97.2 [degF] Nakia Stafford PROFILING MACHINE SET UP OPERATOR TOOL-BILLING AUDITOR [facility] 10-01-2024 14:25-0500 Body weight 59.65 kg Nakia Stafford PROFILING MACHINE SET UP OPERATOR TOOL-BILLING AUDITOR Work [facility]: [facility] 10-01-2024 14:25-0500 Diastolic blood pressure 80 mm[Hg] Nakia Stafford PROFILING MACHINE SET UP OPERATOR TOOL-BILLING AUDITOR Work [facility] 10-01-2024 14:25-0500 Heart rate 77 /min Nakia Stafford PROFILING MACHINE SET UP OPERATOR TOOL-BILLING AUDITOR [email or web address] 10-01-2024 14:25-0500 Respiratory rate 12 /min Nakia Stafford PROFILING MACHINE SET UP OPERATOR TOOL-BILLING AUDITOR Work [email or web address] 10-01-2024 14:25-0500 SaO2% (BldA) [Mass fraction] 100 % Nakia Stafford PROFILING MACHINE SET UP OPERATOR TOOL-BILLING AUDITOR Work [facility] 10-01-2024 14:25-0500 Systolic blood pressure 142 mm[Hg] Nakia Stafford PROFILING MACHINE SET UP OPERATOR TOOL-BILLING AUDITOR Work [facility] 09-26-2024 09:40-0400 Body height 154.9 cm Phillip Wells MD Work Phone: [employer] 09-26-2024 09:40-0400 Body mass index (BMI) [Ratio] 24.53 kg/m2 Phillip Wells MD Work Phone: [employer] 09-26-2024 09:40-0400 Body temperature 97.9 [degF] Phillip Wells MD Work Phone: [employer] 09-26-2024 09:40-0400 Body weight 58.88 kg Phillip Wells MD Work Phone: [employer] 09-26-2024 09:40-0400 Diastolic blood pressure 81 mm[Hg] Phillip Wells MD Work Phone: [employer] 09-26-2024 09:40-0400 Heart rate 70 /min Phillip Wells MD Work Phone: [employer] 09-26-2024 09:40-0400 Respiratory rate 18 /min Phillip Wells MD Work Phone: [employer] 09-26-2024 09:40-0400 SaO2% (BldA) [Mass fraction] 100 % Phillip Wells MD Work Phone: [employer] 09-26-2024 09:40-0400 Systolic blood pressure 132 mm[Hg] Phillip Wells MD [facility] 01-21-2024 11:32-0500 Body height 157.48 cm DO Pelon Merced Work Phone: [facility] 01-21-2024 11:29-0500 Body mass index (BMI) [Ratio] 25.2 kg/m2 DO Pelon Merced Work Phone: [facility] 01-21-2024 11:29-0500 Body weight 62.59 kg DO Pelon Merced Work Phone: [facility] 01-21-2024 11:29-0500 Diastolic blood pressure 81 mm[Hg] DO Pelon Vegaer Work Phone: [facility] 01-21-2024 11:29-0500 Heart rate 72 /min DO Pelon Merced Work Phone: [facility] 01-21-2024 11:29-0500 Respiratory rate 18 /min DO Pelon Blackwood Work Phone: [facility] 01-21-2024 11:29-0500 SaO2% (BldA) [Mass fraction] 98 % DO Pelon Blackwood Work Phone: [facility] 01-21-2024 11:29-0500 Systolic blood pressure 143 mm[Hg] DO Pelon Blackwood Work Phone: [facility] 01-04-2023 09:47-0500 Body height 160.02 cm Shamika Rodolfo ALEX [facility] Work Phone: 01-04-2023 09:47-0500 Body mass index (BMI) [Ratio] 27.81 kg/m2 Shamika Slarb [employer]ABRICATION MIG WELDER [facility] Work Phone: 01-04-2023 09:47-0500 Body surface area Derived from formula 1.74 m2 Shamika Slarb FABRICATION MIG WELDER [facility] Work Phone: 01-04-2023 09:47-0500 Body temperature 97.3 [degF] Shamika Slarb FABRICATION MIG WELDER [facility] Work Phone: 01-04-2023 09:47-0500 Body weight 71.22 kg Shamika Slarb FABRICATION MIG WELDER [facility] Work Phone: 01-04-2023 09:47-0500 Diastolic blood pressure 80 mm[Hg] Shamika Slarb FABRICATION MIG WELDER [facility] Work Phone: 01-04-2023 09:47-0500 Heart rate 83 /min Shamika Slarb FABRICATION MIG WELDER [facility] Work Phone: 01-04-2023 09:47-0500 Respiratory rate 16 /min Shamika Slarb FABRICATION MIG WELDER [facility] Work Phone: 01-04-2023 09:47-0500 SaO2% (BldA) [Mass fraction] 99 % Shamika Reynolds LPN [facility]; [facility] Work Phone: 01-04-2023 09:47-0500 Systolic blood pressure 120 mm[Hg] Shamika Reynolds LPN [facility] Work Phone: 11-02-2022 15:29-0500 Body height 157.[address] Raquel Mauro Work Phone: [facility] 11-02-2022 15:28-0500 Body mass index (BMI) [Ratio] 27.2 kg/m2 Dr. Raquel Mauro Work Phone: [facility] 11-02-2022 15:28-0500 Body weight 67.[address] Raquel Mauro Work Phone: [facility] 11-02-2022 15:28-0500 Diastolic blood pressure 82 mm[Hg] Dr. Raquel Mauro Work Phone: [facility] 11-02-2022 15:28-0500 Heart rate 65 /min Dr. Raquel Mauro Work Phone: [facility] 11-02-2022 15:28-0500 Respiratory rate 18 /min Dr. Raquel Mauro Work Phone: [facility] 11-02-2022 15:28-0500 SaO2% (BldA) [Mass fraction] 96 % Dr. Raquel Mauro Work Phone: [facility] 11-02-2022 15:28-0500 Systolic blood pressure 138 mm[Hg] Dr. Raquel Mauro Work Phone: [facility] 09-22-2022 09:18-0400 Body height 160.02 cm Sahara [...] Internal [facility]; [facility] Work Phone: Comment on above: Patient Position: Sitting; Cuff Location : Left Arm; Cuff Size: Standard 09-22-2022 09:18-0400 Heart rate 70 /min Sahara Hardy MA [facility]; [facility] Work Phone: Comment on above: Pattern: Regular 09-22-2022 09:18-0400 Respiratory rate 17 /min Sahara Hardy MA [facility]; [facility] Work Phone: Comment on above: Pattern: Unlabored 09-22-2022 09:18-0400 SaO2% (BldA) [Mass fraction] 99 % Sahara Hardy MA [facility]; [facility] Work Phone: Comment on above: Room air 09-22-2022 09:18-0400 Systolic blood pressure 148 mm[Hg] Sahara Hardy MA [facility]; [facility] Work Phone: Comment on above: Patient Position: Sitting; Cuff Location : Left Arm; Cuff Size: Standard 11-30-2021 11:40-0500 Body height 160.02 cm Julio Wang LPN [facility]; [facility] Work Phone: 11-30-2021 11:40-0500 Body mass index (BMI) [Ratio] 27.81 kg/m2 Julio Wang LPN [facility]; [facility] Work Phone: 11-30-2021 11:40-0500 Body surface area Derived from formula 1.74 m2 Julio Wang LPN [facility]; [facility] Work Phone: 11-30-2021 11:40-0500 Body temperature 98 [degF] Omaira Prince BILLING AUDITOR Work Phone: [facility]; [facility] Work Phone: 11-30-2021 11:40-0500 Body weight 71.22 kg Julio Wang LPN [facility]; [facility] Work Phone: 06-14-2020 15:38-0400 BMI (Body Mass Index) 27.81 kg/m2 Arlene Bland RN [facility] Work Phone: Comment on above: Vital signs not obtained d/t call or vir tual visit 06-14-2020 15:38-0400 Body weight 71.22 kg Arlene Bland RN [facility] Work Phone: Comment on above: Vital signs not obtained d/t call or vir tual visit 06-14-2020 15:38-0400 BSA (Body Surface Area) 1.74 m2 Arlene Bland RN [facility] Work Phone: Comment on above: Vital signs not obtained d/t call or vir tual visit 06-14-2020 15:38-0400 Height 160.02 cm Arlene Bland RN [facility] Work Phone: Comment on above: Vital signs not obtained d/t call or vir tual visit 04-21-2020 09:29-0400 BMI (Body Mass Index) 27.81 kg/m2 Shamika Slarb F[employer]RICATION MIG WELDER [facility] Work Phone: 04-21-2020 09:29-0400 Body Temperature 98.2 [degF] Shamika Slarb FABRICATION MIG WELDER [facility] Work Phone: 04-21-2020 09:29-0400 Body weight 71.22 kg Shamika Slarb FABRICATION MIG WELDER [facility] Work Phone: 04-21-2020 09:29-0400 BP Diastolic 82 mm[Hg] Shamika Slarb FABRICATION MIG WELDER [facility] Work Phone: Comment on above: Patient Position: Sitting; Cuff Location : Left Arm; Cuff Size: Standard 04-21-2020 09:29-0400 BP Systolic 124 mm[Hg] Shamika Reynolds FABRICATION MIG WELDER [facility] Work Phone: Comment on above: Patient Position: Sitting; Cuff Location : Left Arm; Cuff Size: Standard 04-21-2020 09:29-0400 BSA (Body Surface Area) 1.74 m2 Shamika Rodolfo SHELTONN [facility] Work Phone: 04-21-2020 09:29-0400 Height 160.02 cm Shamika Rodolfo FABRICATION MIG WELDER [facility] Work Phone: 04-21-2020 09:29-0400 Pulse (Heart Rate) 75 /min Shamika Reynolds FABRICATION MIG WELDER [facility] Work Phone: Comment on above: Pattern: Regular 04-21-2020 09:29-0400 Pulse Oximetry 96 % Raquel Mauro [facility] Work Phone: Comment on above: Room air 04-21-2020 09:29-0400 Respiratory Rate 17 /min Shamika Slaosito SHELTONN [facility] Work Phone: Comment on above: Pattern: Unlabored 04-21-2020 09:29-0400 SaO2% (BldA) [Mass fraction] 96 % Shamika Reynolds LPN [facility]; [facility] Work Phone: Comment on above: Room air 12-19-2019 13:13-0500 BMI (Body Mass Index) 28.17 kg/m2 Julio Wang LPN [facility] Work Phone: 12-19-2019 13:13-0500 Body Temperature 97.9 [degF] Julio Wang LPN [facility] Work Phone: Comment on above: Method: Temporal 12-19-2019 13:13-0500 Body weight 72.12 kg Julio Wang LPN [facility] Work Phone: 12-19-2019 13:13-0500 BP Diastolic 78 mm[Hg] Julio Wang LPN [facility] Work Phone: Comment on above: Patient Position: Sitting; Cuff Location : Left Arm; Cuff Size: Standard 12-19-2019 13:13-0500 BP Systolic 136 mm[Hg] Julio Wang LPN [facility] Work Phone: Comment on above: Patient Position: Sitting; Cuff Location : Left Arm; Cuff Size: Standard 12-19-2019 13:13-0500 BSA (Body Surface Area) 1.75 m2 Julio Wang LPN [facility] Work Phone: 12-19-2019 13:13-0500 Height 160.02 cm Julio Wang FABRICATION MIG WELDER [facility] Work Phone: 12-19-2019 13:13-0500 Pulse (Heart Rate) 86 /min Julio Wang LPN [facility] Work Phone: Comment on above: Pattern: Regular 12-19-2019 13:13-0500 Pulse Oximetry 99 % Raquel Mauro [facility] Work Phone: Comment on above: Room air 12-19-2019 13:13-0500 Respiratory Rate 16 /min Julio Wang FABRICATION MIG WELDER [facility] Work Phone: Comment on above: Pattern: Unlabored 12-19-2019 13:13-0500 SaO2% (BldA) [Mass fraction] 99 % Julio Wang [facility] Work Phone: Comment on above: Room air 10-09-2019 09:44-0500 BMI (Body Mass Index) 28.03 kg/m2 Arlene Bland RN [facility] Work Phone: 10-09-2019 09:44-0500 Body weight 71.78 kg Arlene Bland RN [facility] Work Phone: 10-09-2019 09:44-0500 BP Diastolic 78 mm[Hg] Arlene Bland RN [facility] Work Phone: Comment on above: Patient Position: Sitting; Cuff Location : Left Arm; Cuff Size: Large 10-09-2019 09:44-0500 BP Systolic 138 mm[Hg] Arlene Bland RN [facility] Work Phone: Comment on above: Patient Position: Sitting; Cuff Location : Left Arm; Cuff Size: Large 10-09-2019 09:44-0500 BSA (Body Surface Area) 1.75 m2 Arlene Bland RN [facility] Work Phone: 10-09-2019 09:44-0500 Height 160.02 cm Arlene Bland RN [facility] Work Phone: 10-09-2019 09:44-0500 Pulse (Heart Rate) 78 /min Arlene Bland RN [facility] Work Phone: Comment on above: Pattern: Regular 10-09-2019 09:44-0500 Pulse Oximetry 96 % Raquel Mauro [facility] Work Phone: Comment on above: Room air 10-09-2019 09:44-0500 Respiratory Rate 17 /min Arlene Bland RN [facility] Work Phone: Comment on above: Pattern: Unlabored 10-09-2019 09:44-0500 SaO2% (BldA) [Mass fraction] 96 % Arlene Bland RN [facility]; [facility] Work Phone: Comment on above: Room air 05-08-2019 10:00-0400 BMI (Body Mass Index) 27.28 kg/m2 Clarita Forrest [facility] Work Phone: 05-08-2019 10:00-0400 Body Temperature 96.5 [degF] Clarita Forrest [facility] Work Phone: Comment on above: Method: Temporal 05-08-2019 10:00-0400 Body weight 69.85 kg Clarita Forrest [facility] Work Phone: 05-08-2019 10:00-0400 BP Diastolic 88 mm[Hg] Clarita Forrest [facility] Work Phone: Comment on above: Patient Position: Sitting; Cuff Location : Left Arm; Cuff Size: Standard 05-08-2019 10:00-0400 BP Systolic 137 mm[Hg] Clarita Forrest [facility] Work Phone: Comment on above: Patient Position: Sitting; Cuff Location : Left Arm; Cuff Size: Standard 05-08-2019 10:00-0400 BSA (Body Surface Area) 1.73 m2 Clarita Forrest CMA [facility] Work Phone: 05-08-2019 10:00-0400 Height 160.02 cm Clarita Forrest CMA [facility] Work Phone: 05-08-2019 10:00-0400 Pulse (Heart Rate) 65 /min Clarita Forrest CMA [facility] Work Phone: Comment on above: Pattern: Regular 05-08-2019 10:00-0400 Pulse Oximetry 98 % Raquel Mauro [facility] Work Phone: Comment on above: Room air 05-08-2019 10:00-0400 Respiratory Rate 18 /min Clarita Forrest CMA [facility] Work Phone: Comment on above: Pattern: Unlabored 05-08-2019 10:00-0400 SaO2% (BldA) [Mass fraction] 98 % Clarita Forrest CMA [facility]; [facility] Work Phone: Comment on above: Room air 05-08-2019 10:00-0400 Weight 69.85 kg Raquel Mauro [facility] Work Phone: 03-13-2019 09:50-0400 BMI (Body Mass Index) 27.99 kg/m2 Clarita Forrest CMA [facility] Work Phone: 03-13-2019 09:50-0400 Body Temperature 96.3 [degF] Clarita Forrest CMA [facility] Work Phone: Comment on above: Method: Temporal 03-13-2019 09:50-0400 Body weight 71.67 kg Clarita Forrest CMA [facility] Work Phone: 03-13-2019 09:50-0400 BP Diastolic 80 mm[Hg] Clarita Forrest CMA [facility] Work Phone: Comment on above: Patient Position: Sitting; Cuff Location : Left Arm; Cuff Size: Standard 03-13-2019 09:50-0400 BP Systolic 126 mm[Hg] Clarita Forrest CMA [facility] Work Phone: Comment on above: Patient Position: Sitting; Cuff Location : Left Arm; Cuff Size: Standard 03-13-2019 09:50-0400 BSA (Body Surface Area) 1.75 m2 Clarita Forrest CMA [facility] Work Phone: 03-13-2019 09:50-0400 Height 160.02 cm Clarita Forrest CMA [facility] Work Phone: 03-13-2019 09:50-0400 Pulse (Heart Rate) 72 /min Clarita Forrest CMA [facility] Work Phone: Comment on above: Pattern: Regular 03-13-2019 09:50-0400 Pulse Oximetry 98 % Raquel Mauro [facility] Work Phone: Comment on above: Room air 03-13-2019 09:50-0400 Respiratory Rate 18 /min Clarita Forrest CMA [facility] Work Phone: Comment on above: Pattern: Unlabored 03-13-2019 09:50-0400 SaO2% (BldA) [Mass fraction] 98 % Clarita Forrest [employer] [facility] Work Phone: Comment on above: Room air 03-13-2019 09:50-0400 Weight 71.67 kg Raquel Mauro [facility] Work Phone: 09-12-2018 09:24-0400 BMI (Body Mass Index) 26.57 kg/m2 Clarita Forrest CMA [facility] Work Phone: 09-12-2018 09:24-0400 Body Temperature 97.5 [degF] Clarita Forrest CMA [facility] Work Phone: Comment on above: Method: Temporal 09-12-2018 09:24-0400 Body weight 68.04 kg Clarita Forrest CMA [facility] Work Phone: 09-12-2018 09:24-0400 BP Diastolic 80 mm[Hg] Clarita Forrest CMA [facility] Work Phone: Comment on above: Patient Position: Sitting; Cuff Location : Left Arm; Cuff Size: Standard 09-12-2018 09:24-0400 BP Systolic 118 mm[Hg] Clarita Forrest CMA [facility] Work Phone: Comment on above: Patient Position: Sitting; Cuff Location : Left Arm; Cuff Size: Standard 09-12-2018 09:24-0400 BSA (Body Surface Area) 1.71 m2 Clarita Forrest CMA [facility] Work Phone: 09-12-2018 09:24-0400 Height 160.02 cm Clarita Forrest [employer] M[employer] [facility] Work Phone: 09-12-2018 09:24-0400 Pulse (Heart Rate) 70 /min Clarita Forrest CMA [facility] Work Phone: Comment on above: Pattern: Regular 09-12-2018 09:24-0400 Pulse Oximetry 100 % Raquel Mauro [facility] Work Phone: Comment on above: Room air 09-12-2018 09:24-0400 Respiratory Rate 16 /min Clarita Forrest CMA [facility] Work Phone: Comment on above: Pattern: Unlabored 09-12-2018 09:24-0400 SaO2% (BldA) [Mass fraction] 100 % Calrita Forrest [facility] Work Phone: Comment on above: Room air 09-12-2018 09:24-0400 Weight 68.04 kg Raquel Mauro [facility] Work Phone: 08-22-2018 09:28-0400 BMI (Body Mass Index) 26.75 kg/m2 Arlene Bland RN [facility] Work Phone: 08-22-2018 09:28-0400 Body weight 68.49 kg Arlene Bland RN [facility] Work Phone: 08-22-2018 09:28-0400 BP Diastolic 80 mm[Hg] Arlene Bland RN [facility] Work Phone: Comment on above: Patient Position: Sitting; Cuff Location : Left Arm; Cuff Size: Large 08-22-2018 09:28-0400 BP Systolic 120 mm[Hg] Arlene Bland RN [facility] Work Phone: Comment on above: Patient Position: Sitting; Cuff Location : Left Arm; Cuff Size: Large 08-22-2018 09:28-0400 BSA (Body Surface Area) 1.72 m2 Arlene Bland RN [facility] Work Phone: 08-22-2018 09:28-0400 Height 160.02 cm Arlene Bland RN [facility] Work Phone: 08-22-2018 09:28-0400 Pulse (Heart Rate) 75 /min Arlene Bland RN [facility] Work Phone: Comment on above: Pattern: Regular 08-22-2018 09:28-0400 Pulse Oximetry 99 % Raquel Mauro [facility] Work Phone: Comment on above: Room air 08-22-2018 09:28-0400 Respiratory Rate 18 /min Arlene Bland RN [facility] Work Phone: Comment on above: Pattern: Unlabored 08-22-2018 09:28-0400 SaO2% (BldA) [Mass fraction] 99 % Arlene Bland RN [facility]; [facility] Work Phone: Comment on above: Room air 08-22-2018 09:28-0400 Weight 68.49 kg Raquel Mauro [facility] Work Phone: 04-26-2018 13:08-0400 BMI (Body Mass Index) 26.64 kg/m2 Arlene Bland RN [facility] Work Phone: Comment on above: hearing wnlDr. French and had a glauocm test done 04-26-2018 13:08-0400 Body weight 68.21 kg Arlene Bland RN [facility] Work Phone: Comment on above: hearing wnlDr. French and had a glauocm test done 04-26-2018 13:08-0400 BP Diastolic 76 mm[Hg] Arlene Bland RN [facility] Work Phone: Comment on above: Patient Position: Sitting; Cuff Location : Left Arm; Cuff Size: Large hearing wnlDr. Perki ns and had a glauocm test done 04-26-2018 13:08-0400 BP Systolic 124 mm[Hg] Arlene Bland RN [facility] Work Phone: Comment on above: Patient Position: Sitting; Cuff Location : Left Arm; Cuff Size: Large hearing wnlDr. Perki ns and had a glauocm test done 04-26-2018 13:08-0400 BSA (Body Surface Area) 1.71 m2 Arlene Bland RN [facility] Work Phone: Comment on above: hearing wnlDr. French and had a glauocm test done 04-26-2018 13:08-0400 Height 160.02 cm Arlene Bland RN [facility] Work Phone: Comment on above: hearing wnlDr. French and had a glauocm test done 04-26-2018 13:08-0400 Pulse (Heart Rate) 72 /min Arlene Bland RN [facility] Work Phone: Comment on above: Pattern: Regular hearing wnlDr. Perki ns and had a glauocm test done 04-26-2018 13:08-0400 Pulse Oximetry 98 % Raquel Mauro [facility] Work Phone: Comment on above: Room air hearing wnlDr. Perki ns and had a glauocm test done 04-26-2018 13:08-0400 Respiratory Rate 18 /min Arlene Bland RN [facility] Work Phone: Comment on above: Pattern: Unlabored hearing wnlDr. Perki ns and had a glauocm test done 04-26-2018 13:08-0400 SaO2% (BldA) [Mass fraction] 98 % Arlene Bland RN [facility]; [facility] Work Phone: Comment on above: Room air hearing wnlDr. Perki ns and had a glauocm test done 04-26-2018 13:08-0400 Weight 68.21 kg Raquel Mauro [facility] Work Phone: Comment on above: hearing wnlDr. French and had a glauocm test done 04-19-2018 08:40-0400 BMI (Body Mass Index) 26.28 kg/m2 Arlene Bland RN [facility] Work Phone: 04-19-2018 08:40-0400 Body weight 67.3 kg Arlene Bland RN [facility] Work Phone: 04-19-2018 08:40-0400 BP Diastolic 86 mm[Hg] Arlene Bland RN [facility] Work Phone: Comment on above: Patient Position: Sitting; Cuff Location : Left Arm; Cuff Size: Large 04-19-2018 08:40-0400 BP Systolic 142 mm[Hg] Arlene Bland RN [facility] Work Phone: Comment on above: Patient Position: Sitting; Cuff Location : Left Arm; Cuff Size: Large 04-19-2018 08:40-0400 BSA (Body Surface Area) 1.7 m2 Arlene Bland RN [facility] Work Phone: 04-19-2018 08:40-0400 Height 160.02 cm Arlene Bland RN [facility] Work Phone: 04-19-2018 08:40-0400 Pulse (Heart Rate) 78 /min Arlene Bland RN Comprehens [facility] Work Phone: Comment on above: Pattern: Regular 04-19-2018 08:40-0400 Pulse Oximetry 99 % Raquel Mauro [facility] Work Phone: Comment on above: Room air 04-19-2018 08:40-0400 Respiratory Rate 18 /min Arlene Bland RN [facility] Work Phone: Comment on above: Pattern: Unlabored 04-19-2018 08:40-0400 SaO2% (BldA) [Mass fraction] 99 % Arlene Bland RN [facility]; [facility] Work Phone: Comment on above: Room air 04-19-2018 08:40-0400 Weight 67.3 kg Raquel Mauro [facility] Work Phone: 09-27-2017 08:30-0400 BMI (Body Mass Index) 25.2 kg/m2 Carlo Burch MD [facility] Work Phone: 09-27-2017 08:30-0400 Body Temperature 98.2 [degF] Carlo Burch MD [facility] Work Phone: 09-27-2017 08:30-0400 BP Diastolic 75 mm[Hg] Carlo Burch MD [facility] Work Phone: 09-27-2017 08:30-0400 BP Systolic 129 mm[Hg] Carlo Burch MD [facility] Work Phone: 09-27-2017 08:30-0400 Height 158.75 cm Carlo Burch MD [facility] Work Phone: 09-27-2017 08:30-0400 Pulse (Heart Rate) 72 /min Carlo Burch MD [facility] Work Phone: 09-27-2017 08:30-0400 Respiratory Rate 18 /min Carlo Burch MD [facility] Work Phone: 09-27-2017 08:30-0400 Weight 63.5 kg Carlo Burch MD [facility] Work Phone: 06-27-2017 08:03-0400 BMI (Body Mass Index) 26.06 kg/m2 Arlene Bland RN [facility] Work Phone: 06-27-2017 08:03-0400 Body weight 66.74 kg Arlene Bland RN [facility] Work Phone: 06-27-2017 08:03-0400 BP Diastolic 68 mm[Hg] Arlene Bland RN [facility] Work Phone: Comment on above: Patient Position: Sitting; Cuff Location : Left Arm; Cuff Size: Standard 06-27-2017 08:03-0400 BP Systolic 118 mm[Hg] Arlene Bland RN [facility] Work Phone: Comment on above: Patient Position: Sitting; Cuff Location : Left Arm; Cuff Size: Standard 06-27-2017 08:03-0400 BSA (Body Surface Area) 1.7 m2 Arlene Bland RN [facility] Work Phone: 06-27-2017 08:03-0400 Height 160.02 cm Arlene Bland RN [facility] Work Phone: 06-27-2017 08:03-0400 Pulse (Heart Rate) 62 /min Arlene Bland RN [facility] Work Phone: Comment on above: Pattern: Regular 06-27-2017 08:03-0400 Pulse Oximetry 99 % Raquel Vanesa [facility] Internal [facility] Work Phone: Comment on above: Room air 06-27-2017 08:03-0400 Respiratory Rate 18 /min Arlene Bland RN [facility] Work Phone: Comment on above: Pattern: Unlabored 06-27-2017 08:03-0400 SaO2% (BldA) [Mass fraction] 99 % Arlene Bland RN [facility]; [facility] Work Phone: Comment on above: Room air 06-27-2017 08:03-0400 Weight 66.74 kg Raquel Mauro [facility] Work Phone: 04-26-2017 08:27-0400 BMI (Body Mass Index) 27.1 kg/m2 Nakia Loza [facility] Work Phone: 04-26-2017 08:27-0400 Body Temperature 97.2 [degF] Nakia Loza [facility] Work Phone: Comment on above: Method: Temporal 04-26-2017 08:27-0400 Body weight 69.4 kg Nakia Loza [facility] Work Phone: 04-26-2017 08:27-0400 BP Diastolic 72 mm[Hg] Nakia Loza [facility] Work Phone: Comment on above: Patient Position: Sitting; Cuff Location : Left Arm; Cuff Size: Standard 04-26-2017 08:27-0400 BP Systolic 124 mm[Hg] Nakia Loza [facility] Work Phone: Comment on above: Patient Position: Sitting; Cuff Location : Left Arm; Cuff Size: Standard 04-26-2017 08:27-0400 BSA (Body Surface Area) 1.73 m2 Nakia Cadenajessie [facility] Work Phone: 04-26-2017 08:27-0400 Height 160.02 cm Nakia Cadenajessie [facility] Work Phone: 04-26-2017 08:27-0400 Pulse (Heart Rate) 70 /min Nakia Cadenajessie [facility] Internal Medicine Work Phone: Comment on above: Pattern: Regular 04-26-2017 08:27-0400 Pulse Oximetry 99 % Raquel Mauro [facility] Work Phone: Comment on above: Room air 04-26-2017 08:27-0400 Respiratory Rate 15 /min Nakia Dago [facility] Work Phone: Comment on above: Pattern: Unlabored 04-26-2017 08:27-0400 SaO2% (BldA) [Mass fraction] 99 % Nakia Dago [facility]; [facility] Work Phone: Comment on above: Room air 04-26-2017 08:27-0400 Weight 69.4 kg Raquel Mauro [facility] Work Phone: 03-02-2017 09:06-0400 BMI (Body Mass Index) 28.03 kg/m2 Arlene Bland RN [facility] Work Phone: Comment on above: hearing wnlDr. French and had a glaucom a tests done 03-02-2017 09:06-0400 Body weight 71.78 kg Arlene Bland RN [facility] Work Phone: Comment on above: hearing wnlDr. French and had a glaucom a tests done 03-02-2017 09:06-0400 BP Diastolic 70 mm[Hg] Arlene Bland RN [facility] Work Phone: Comment on above: Patient Position: Sitting; Cuff Location : Left Arm; Cuff Size: Large hearing wnlDr. Perki ns and had a glaucoma tests done 03-02-2017 09:06-0400 BP Systolic 118 mm[Hg] Arlene Bland RN [facility] Work Phone: Comment on above: Patient Position: Sitting; Cuff Location : Left Arm; Cuff Size: Large hearing wnlDr. Perki ns and had a glaucoma tests done 03-02-2017 09:06-0400 BSA (Body Surface Area) 1.75 m2 Arlene Bland RN [facility] Work Phone: Comment on above: hearing wnlDr. French and had a glaucom a tests done 03-02-2017 09:06-0400 Height 160.02 cm Arlene Bland RN [facility] Work Phone: Comment on above: hearing wnlDr. French and had a glaucom a tests done 03-02-2017 09:06-0400 Pulse (Heart Rate) 74 /min Arlene Bland RN [facility] Internal Medicine Work Phone: Comment on above: Pattern: Regular hearing wnlDr. Perki ns and had a glaucoma tests done 03-02-2017 09:06-0400 Pulse Oximetry 97 % Raquel Mauro [facility] Work Phone: Comment on above: Room air hearing wnlDr. Perki ns and had a glaucoma tests done 03-02-2017 09:06-0400 Respiratory Rate 18 /min Arlene Bland RN [facility] Internal Medicine Work Phone: Comment on above: Pattern: Unlabored hearing wnlDr. Perki ns and had a glaucoma tests done 03-02-2017 09:06-0400 SaO2% (BldA) [Mass fraction] 97 % Arlene Bland RN [facility]; [facility] Work Phone: Comment on above: Room air hearing wnlDr. Perki ns and had a glaucoma tests done 03-02-2017 09:06-0400 Weight 71.78 kg Raquel Mauro [facility] Work Phone: Comment on above: hearing wnlDr. French and had a glaucom a tests done 02-01-2017 13:55-0500 BMI (Body Mass Index) 28.56 kg/m2 Arlene Bland RN [facility] Work Phone: 02-01-2017 13:55-0500 Body weight 73.14 kg Arlene Bland RN [facility] Work Phone: 02-01-2017 13:55-0500 BP Diastolic 82 mm[Hg] Arlene Bland RN [facility] Work Phone: Comment on above: Patient Position: Sitting; Cuff Location : Left Arm; Cuff Size: Large 02-01-2017 13:55-0500 BP Systolic 142 mm[Hg] Arlene Bland RN [facility] Work Phone: Comment on above: Patient Position: Sitting; Cuff Location : Left Arm; Cuff Size: Large 02-01-2017 13:55-0500 BSA (Body Surface Area) 1.76 m2 Arlene Bland RN [facility] Work Phone: 02-01-2017 13:55-0500 Height 160.02 cm Arlene Bland RN [facility] Work Phone: 02-01-2017 13:55-0500 Pulse (Heart Rate) 68 /min Arlene Bland RN [facility] Work Phone: Comment on above: Pattern: Regular 02-01-2017 13:55-0500 Pulse Oximetry 97 % Raquel Mauro [facility] Work Phone: Comment on above: Room air 02-01-2017 13:55-0500 Respiratory Rate 18 /min Arlene Bland RN [facility] Work Phone: Comment on above: Pattern: Unlabored 02-01-2017 13:55-0500 SaO2% (BldA) [Mass fraction] 97 % Arlene Bland RN [facility]; [facility] Work Phone: Comment on above: Room air 02-01-2017 13:55-0500 Weight 73.14 kg Raquel Mauro [facility] Work Phone: 01-25-2017 11:33-0500 BMI (Body Mass Index) 28.74 kg/m2 KAMILAH Rosen LPN [facility] Work Phone: 01-25-2017 11:33-0500 Body Temperature 97.9 [degF] KAMILAH Rosen LPN [facility] Work Phone: Comment on above: Method: Temporal 01-25-2017 11:33-0500 Body weight 73.6 kg KAMILAH Rosen LPN [facility] Work Phone: 01-25-2017 11:33-0500 BP Diastolic 90 mm[Hg] KAMILAH Rosen LPN [facility] Work Phone: Comment on above: Patient Position: Sitting; Cuff Location : Left Arm; Cuff Size: Standard 01-25-2017 11:33-0500 BP Systolic 140 mm[Hg] KAMILAH Rosen LPN [facility] Work Phone: Comment on above: Patient Position: Sitting; Cuff Location : Left Arm; Cuff Size: Standard 01-25-2017 11:33-0500 BSA (Body Surface Area) 1.77 m2 KAMILAH Rosen LPN [facility] Work Phone: 01-25-2017 11:33-0500 Height 160.02 cm KAMILAH Rosen ABI [facility] Work Phone: 01-25-2017 11:33-0500 Pulse (Heart Rate) 76 /min KAMILAH Rosen LPN [facility] Work Phone: Comment on above: Pattern: Regular 01-25-2017 11:33-0500 Pulse Oximetry 98 % Raquel Mauro [facility] Work Phone: Comment on above: Room air 01-25-2017 11:33-0500 Respiratory Rate 18 /min KAMILAH Rosen LPN [facility] Work Phone: Comment on above: Pattern: Unlabored 01-25-2017 11:33-0500 SaO2% (BldA) [Mass fraction] 98 % KAMILAH Rosen ABI [facility]; [facility] Work Phone: Comment on above: Room air 01-25-2017 11:33-0500 Weight 73.6 kg Raquel Mauor [facility] Work Phone: 01-04-2017 15:03-0500 BSA (Body Surface Area) 1.77 m2 Carlo Burch MD [facility] Work Phone: 12-28-2016 10:39-0500 BMI (Body Mass Index) 29.05 kg/m2 Sherri Medina RN [facility] Work Phone: 12-28-2016 10:39-0500 Body Temperature 97.8 [degF] Sherri Medina RN [facility] Work Phone: Comment on above: Method: Temporal 12-28-2016 10:39-0500 Body weight 74.39 kg Sherri Medina RN [facility] Work Phone: 12-28-2016 10:39-0500 BP Diastolic 84 mm[Hg] Sherri Medina RN [facility] Work Phone: Comment on above: Patient Position: Sitting; Cuff Location : Left Arm; Cuff Size: Standard 12-28-2016 10:39-0500 BP Systolic 156 mm[Hg] Sherri Medina RN [facility] Work Phone: Comment on above: Patient Position: Sitting; Cuff Location : Left Arm; Cuff Size: Standard 12-28-2016 10:39-0500 BSA (Body Surface Area) 1.78 m2 Sherri Medina RN [facility] Work Phone: 12-28-2016 10:39-0500 Height 160.02 cm Sherri Medina RN [facility] Work Phone: 12-28-2016 10:39-0500 Pulse (Heart Rate) 77 /min Sherri Medina RN [facility] Work Phone: Comment on above: Pattern: Regular 12-28-2016 10:39-0500 Pulse Oximetry 97 % Raquel Crawfordon [facility] Work Phone: Comment on above: Room air 12-28-2016 10:39-0500 Respiratory Rate 16 /min Sherri Medina RN [facility] Work Phone: Comment on above: Pattern: Unlabored 12-28-2016 10:39-0500 SaO2% (BldA) [Mass fraction] 97 % Sherri Medina RN [facility]; [facility] Work Phone: Comment on above: Room air 12-28-2016 10:39-0500 Weight 74.39 kg Raquel Vanesa [facility] Work Phone: 12-14-2016 10:40-0500 BMI (Body Mass Index) 29.23 kg/m2 Sherri Medina RN [facility] Work Phone: 12-14-2016 10:40-0500 Body Temperature 97.2 [degF] Sherri Medina RN [facility] Work Phone: Comment on above: Method: Temporal 12-14-2016 10:40-0500 Body weight 74.84 kg Sherri Medina RN [facility] Work Phone: 12-14-2016 10:40-0500 BP Diastolic 73 mm[Hg] Sherri Medina RN [facility] Work Phone: Comment on above: Patient Position: Sitting; Cuff Location : Left Arm; Cuff Size: Standard 12-14-2016 10:40-0500 BP Systolic 126 mm[Hg] Sherri Medina RN [facility] Work Phone: Comment on above: Patient Position: Sitting; Cuff Location : Left Arm; Cuff Size: Standard 12-14-2016 10:40-0500 BSA (Body Surface Area) 1.78 m2 Sherri Medina RN [facility] Work Phone: 12-14-2016 10:40-0500 Height 160.02 cm Sherri Medina RN [facility] Work Phone: 12-14-2016 10:40-0500 Pulse (Heart Rate) 70 /min Sherri Medina RN [facility] Work Phone: Comment on above: Pattern: Regular 12-14-2016 10:40-0500 Pulse Oximetry 98 % Raquel Mauro [facility] Work Phone: Comment on above: Room air 12-14-2016 10:40-0500 Respiratory Rate 16 /min Sherri Medina RN [facility] Work Phone: Comment on above: Pattern: Unlabored 12-14-2016 10:40-0500 SaO2% (BldA) [Mass fraction] 98 % Sherri Medina RN [facility]; [facility] Work Phone: Comment on above: Room air 12-14-2016 10:40-0500 Weight 74.84 kg Raquelhoracio Mauro [facility] Work Phone: 07-25-2016 10:02-0400 BMI (Body Mass Index) 28.7 kg/m2 KAMILAH Rosen LPN [facility] Work Phone: 07-25-2016 10:02-0400 Body Temperature 97.6 [degF] KAMILAH Rosen LPN [facility] Work Phone: Comment on above: Method: Temporal 07-25-2016 10:02-0400 Body weight 73.48 kg KAMILAH Silas ALEX [facility] Work Phone: 07-25-2016 10:02-0400 BP Diastolic 80 mm[Hg] KAMILAH Rosen LPN [facility] Work Phone: Comment on above: Patient Position: Sitting; Cuff Location : Left Arm; Cuff Size: Standard 07-25-2016 10:02-0400 BP Systolic 120 mm[Hg] KAMILAH Silas ALEX [facility] Work Phone: Comment on above: Patient Position: Sitting; Cuff Location : Left Arm; Cuff Size: Standard 07-25-2016 10:02-0400 BSA (Body Surface Area) 1.77 m2 KAMILAH Rosen LPN [facility] Work Phone: 07-25-2016 10:02-0400 Height 160.02 cm KAMILAH Rosen LPN [facility] Work Phone: 07-25-2016 10:02-0400 Pulse (Heart Rate) 70 /min KAMILAH Rosen LPN [facility] Work Phone: Comment on above: Pattern: Regular 07-25-2016 10:02-0400 Pulse Oximetry 98 % Raquel Vanesa [facility] Work Phone: Comment on above: Room air 07-25-2016 10:02-0400 Respiratory Rate 20 /min KAMILAH Rosen LPN [facility] Work Phone: Comment on above: Pattern: Unlabored 07-25-2016 10:02-0400 SaO2% (BldA) [Mass fraction] 98 % KAMILAH Rosen LPN [facility]; [facility] Work Phone: Comment on above: Room air 07-25-2016 10:02-0400 Weight 73.48 kg Raquel Mauro [facility] Work Phone: 04-12-2016 09:20-0400 BMI (Body Mass Index) 28.7 kg/m2 Sherri Medina RN [facility] Work Phone: 04-12-2016 09:20-0400 Body Temperature 98.6 [degF] Sherri Medina RN [facility] Work Phone: Comment on above: Method: Temporal 04-12-2016 09:20-0400 Body weight 73.48 kg Sherri Medina RN [facility] Work Phone: 04-12-2016 09:20-0400 BP Diastolic 76 mm[Hg] Sherri Medina RN [facility] Work Phone: Comment on above: Patient Position: Sitting; Cuff Location : Left Arm; Cuff Size: Standard 04-12-2016 09:20-0400 BP Systolic 132 mm[Hg] Sherri Medina RN [facility] Work Phone: Comment on above: Patient Position: Sitting; Cuff Location : Left Arm; Cuff Size: Standard 04-12-2016 09:20-0400 BSA (Body Surface Area) 1.77 m2 Sherri Medina RN [facility] Work Phone: 04-12-2016 09:20-0400 Height 160.02 cm Sherri Medina RN [facility] Work Phone: 04-12-2016 09:20-0400 Pulse (Heart Rate) 70 /min Sherri Medina RN [facility] Work Phone: Comment on above: Pattern: Regular 04-12-2016 09:20-0400 Pulse Oximetry 98 % Raquel Vanesa [facility] Work Phone: Comment on above: Room air 04-12-2016 09:20-0400 Respiratory Rate 16 /min Sherri Medina RN [facility] Work Phone: Comment on above: Pattern: Unlabored 04-12-2016 09:20-0400 SaO2% (BldA) [Mass fraction] 98 % Sherri Medina RN [facility]; [facility] Work Phone: Comment on above: Room air 04-12-2016 09:200400 Weight 73.48 kg Raquel Mauro [facility] Work Phone: Encounters Encounter Date Encounter Type Care Provider Facility Start: 06-25-2025 ambulatory Ang Thomas acility:[facility] Start: 06-23-2025 ambulatory [facility] Facility:[facility] Start: 05-26-2025 End: 05-26-2025 ambulatory FLORENCE HARMAN Work Phone: -[facility] [place] Start: 05-26-2025 End: 05-26-[address] 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); Oral lesion; Body mass index (BMI) 25.0-25.9, adult Start: 03-24-2025 End: 03-24-2025 ambulatory Pelon Blackwood DO Work Phone: [facility] Work Phone: Start: 03-24-2025 End: 03-24-2025 Patient encounter procedure Pelon Blackwood DO Work Phone: -Laboratory, [facility] Work Phone: Start: 03-24-2025 End: 03-24-2025 ambulatory Chalon Sushila Facility:[facility] Start: 03-18-2025 End: 03-18-2025 Telephone encounter Phillip Wells MD Work Phone: [facility] Otolaryngology (ENT) Comment on above: Discuss results test /procedures Start: 03-11-2025 End: 03-11-2025 ambulatory PHILLIP WELLS Facility:[facility] Start: 03-11-2025 End: 03-11-2025 Office outpatient visit 15 minutes Phillip Wells MD Work Phone: [facility] Otolaryngology (ENT) Comment on above: 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); Oral lesion Start: 01-22-2025 End: 01-22-2025 Patient encounter procedure Casandra Storey [place] -[facility] Work Phone: Start: 01-22-2025 End: 01-22-2025 ambulatory Chalon Sushila Facility:[facility] Start: 01-02-2025 End: 01-02-2025 Patient encounter procedure Phillip Wells MD Work Phone: [facility] Otolaryngology (ENT) Comment on above: 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); Body mass index (BMI) 25.0-25.9, adult Start: 01-02-2025 End: 01-02-2025 ambulatory Arely Bates CCC-[facility] Speech ENT Comment on above: Treatment (02/02) Start: 11-18-2024 End: 11-18-2024 ambulatory Chalon Sushila [facility] [facility] Start: 11-06-2024 End: 11-06-2024 ambulatory Chalon Sushila Facility:[facility] Start: 11-03-2024 End: 11-03-2024 ambulatory PHILLIP RUSSELL Facility:[facility] Start: 11-03-2024 End: 11-03-2024 Subsequent hospital visit by physician Sherri Mercado RD Work Phone: [facility] Oncology Medical Comment on above: 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) Start: 10-28-2024 End: 10-29-2024 Patient encounter procedure Phillip Wells MD Work Phone: [facility] Otolaryngology (ENT) Comment on above: 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) Start: 10-28-2024 End: 10-29-2024 ambulatory Farida De Luna CCC-WEDGER [facility] Speech ENT Comment on above: Treatment (2) Start: 10-19-2024 End: 10-19-2024 Telephone encounter Phillip Wells MD Work Phone: [facility] Otolaryngology (ENT) Comment on above: Discuss results test /procedures Start: 10-13-2024 End: 10-13-2024 Telephone encounter Raquel Lee RN [facility] Line Comment on above: Question about medic ation Start: 10-13-2024 End: 10-13-2024 Evaluation and management of inpatient PHILLIP WELLS Facility:[facility] Start: 10-13-2024 End: 10-13-2024 Subsequent hospital visit by physician Phillip Wells MD Work Phone: [facility] Main [place] Comment on above: 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); Lichen planus Start: 10-10-2024 End: 10-10-2024 ambulatory Phillip Wells MD Work Phone: [facility] Otolaryngology (ENT) Start: 10-07-2024 End: 10-07-2024 ambulatory PHILLIP WELLS [facility] Start: 10-03-2024 End: 10-03-2024 [facility] Facility:[facility] Start: 10-02-2024 End: 10-02-2024 Telephone encounter Rocio MCMILLAN Work Phone: [facility] Oncology Medical Comment on above: Outreach FMLA Start: 10-01-2024 End: 10-01-2024 Subsequent hospital visit by physician Sherri Mercado RD Work Phone: [facility] Oncology Medical Comment on above: 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) Start: 10-01-2024 End: 10-08-2024 Patient encounter procedure Nakia Stafford PROFILING MACHINE SET UP OPERATOR TOOL-BILLING AUDITOR Work Phone: [facility] Pre-Admission Testing Comment on above: Pre-op testing (Prim cherie Dx); Neoplasm of unspecified behavior of unspecified site; Body mass index (BMI) 24.0-24.9, adult Start: 10-01-2024 End: 10-08-2024 Patient encounter status Nakia Stafford PROFILING MACHINE SET UP OPERATOR TOOL-BILLING AUDITOR [email or web address]: Start: 10-01-2024 Encounter for other preprocedural examination UNKNOWN PROVIDER [facility] Start: 10-01-2024 End: 10-08-2024 ambulatory Madelyn Lackey CCC-WEDGER [facility] Speech E NT Comment on above: Evaluation (FEES) Start: 09-30-2024 End: 09-30-2024 Telephone encounter Aentte Fulton [facility] Main [place] Comment on above: Research Visit (Call ed patient to provide information regarding GUARDIAN. //Patient identity was verified using three identifiers. 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); Lichen planus; Body mass index (BMI) 24.0-24.9, adult Start: 09-26-2024 End: 09-28-2024 ambulatory PHILLIP WELLS Facility:[facility] Start: 09-24-2024 End: 09-24-2024 ambulatory PHILLIP WELLS Facility:[facility] Start: 09-24-2024 End: 09-24-2024 Subsequent hospital visit by physician Vashti [facility] Radiology Comment on above: Tongue cancer (HCC) Start: 09-23-2024 End: 09-23-2024 ambulatory [facility] Facility:[facility] Start: 09-19-2024 End: 09-19-2024 ambulatory [facility] Facility:[facility] Start: 09-17-2024 End: 09-18-2024 Telephone encounter Phillip Wells MD Work Phone: [facility] Otolaryngology (ENT) Comment on above: Referral From [facility] Start: 07-01-2024 End: 07-01-2024 ambulatory [facility] Facility:[facility] Start: 02-21-2024 Non-patient / Non-visit DO Edith Blackwood Work Phone: [facility] Start: 02-21-2024 End: 02-21-2024 ambulatory DO Pelon Blackwood Work Phone: [facility] Work Phone: Start: 02-21-2024 End: 02-21-2024 Patient encounter procedure DO Pelon Blackwood Work Phone: [facility]-Cardiovascular Services Work Phone: Start: 01-21-2024 End: 01-21-2024 Patient encounter procedure DO Pelon Blackwood Work Phone: [facility] Work Phone: Start: 12-18-2023 End: 12-18-2023 Patient encounter procedure DO Pelon Blackwood Work Phone: [facility]-Laboratory, Specimen Work Phone: Start: 06-05-2023 End: 06-05-2023 ambulatory [facility] Work Phone: Start: 06-05-2023 End: 06-05-2023 Patient encounter procedure [facility]-Outpatient Breast Imaging Work Phone: Start: 05-21-2023 End: 05-21-2023 Raquel Mauro DO Work Phone: [facility] Start: 04-26-2023 End: 04-26-2023 ambulatory [facility] Work Phone: Start: 04-26-2023 End: 04-26-2023 Patient encounter procedure [facility] Start: 04-13-2023 End: 04-18-2023 Office outpatient visit 5 minutes Raquel Mauro DO Work Phone: [facility] Start: 02-08-2023 End: 02-08-[address] Raquel Mauro Work Phone: [facility] Work Phone: Start: 02-08-2023 End: 02-08-[address] Raquel Mauro Work Phone: [facility] Start: 01-08-2023 End: 01-08-[address] Raquel Mauro Work Phone: [facility] Work Phone: Start: 01-08-2023 End: 01-08-[address] Raquel Mauro Work Phone: [facility] Start: 01-04-2023 ambulatory Raquel Mauro DO [facility] Start: 01-04-2023 End: 01-04-2023 Office outpatient visit 25 minutes Raquel Mauro DO Work Phone: [facility] Start: 01-04-2023 Raquel Huff n DO Work Phone: [facility] Start: 11-02-2022 End: 11-02-[address] Raquel Mauro Work Phone: [facility] Start: 10-05-2022 End: 10-05-[address] Raquel Mauro Work Phone: [facility] Work Phone: Start: 10-05-2022 End: 10-05-[address] Raquel Mauro Work Phone: [facility] Start: 10-03-2022 End: 10-03-[address] Raquel Mauro Work Phone: [facility] Work Phone: Start: 10-03-2022 End: 10-03-[address] Raquel Mauro Work Phone: [facility] Start: 09-22-2022 End: 09-22-[address] Raquel Mauro Work Phone: [facility] Radiology Start: 09-22-2022 Lo aguilera DO Work Phone: [facility] Start: 09-22-2022 End: 09-27-2022 Office outpatient visit 15 minutes Raquel Mauro DO Work Phone: [facility] Start: 09-01-2022 End: 09-01-[address] Raquel Mauro Work Phone: [facility] Orthopaedic Specia Start: 08-31-2022 End: 08-31-[address] Raquel Mauro Work Phone: [facility] Work Phone: Start: 08-31-2022 End: 08-31-[address] Raquel Mauro Work Phone: [facility] Start: 08-11-2022 End: 08-11-[address] Raquel Mauro Work Phone: [facility] Orthopaedic Specia Start: 06-19-2022 End: 06-19-2022 Patient encounter [facility] Start: 06-01-2022 End: 06-01-2022 Patient encounter procedure [facility]Out[facility] Breast Imaging Start: 05-24-2022 End: 05-24-2022 Annotation/Addendum Raquel Vanesa DO Work Phone: [facility] Start: 05-24-2022 End: 05-24-2022 Raquel Vanesa DO Work Phone: [facility] Start: 11-30-2021 End: 11-30-2021 Office outpatient visit 10 minutes Raquel Vanesa DO Work Phone: [facility] Start: 11-30-2021 Review Raquel Crawfordo n DO Work Phone: [facility] Start: 11-29-2021 End: 11-30-2021 Office outpatient visit 5 minutes Raquel Vanesa DO Work Phone: [facility] Start: 05-09-2021 End: 05-09-2021 Annotation/Addendum Raquel Vanesa DO Work Phone: [facility] Start: 05-09-2021 End: 05-09-2021 Raquel Vanesa DO Work Phone: [facility] Start: 07-21-2020 End: 07-21-2020 Phone Encounter Raquel Vanesa [facility] Start: 07-21-2020 End: 07-21-2020 Raquel Vanesa DO Work Phone: [facility] Start: 06-14-2020 End: 06-14-2020 Office outpatient visit 10 minutes Raquel Vanesa [facility] Start: 04-21-2020 End: 04-21-2020 Office outpatient visit 25 minutes Raquel Vanesa [facility] Start: 02-23-2020 End: 02-23-2020 Lab Order Raquel Vanesa [facility] Start: 02-23-2020 End: 02-23-2020 Raquel Vanesa DO Work Phone: [facility] Start: 12-19-2019 End: 12-19-2019 Phone Encounter Raquel Mauro [facility] Start: 12-19-2019 End: 12-19-2019 Raquel Mauro DO Work Phone: [facility] Start: 12-19-2019 End: 12-19-2019 Office outpatient visit 15 minutes Raquel Mauro [facility] Start: 10-09-2019 End: 10-09-2019 Office outpatient visit 25 minutes Raquel Vanesa [facility] Start: 10-09-2019 Review Raquel Mauro Compreh [facility] Internal Medicine Start: 09-24-2019 End: 09-24-2019 Phone Encounter Raquel Crawfordon [facility] Start: 09-24-2019 End: 09-24-2019 Raquel Mauro DO Work Phone: [facility] Start: 09-22-2019 End: 09-22-2019 Phone Encounter Raquel Vanesa [facility] Start: 09-22-2019 End: 09-22-2019 Raquel Mauro DO Work Phone: [facility] Start: 05-08-2019 End: 05-08-2019 Patient encounter procedure Clarita Forrest [facility] Work Phone: Start: 05-08-2019 End: 05-08-2019 Periodic preventive med est patient 65yrs& older Raquel Mauro [facility] Start: 03-19-2019 End: 03-19-2019 Phone Encounter Raquel Crawfordon [facility] Start: 03-19-2019 End: 03-19-2019 Raquel Mauro DO Work Phone: [facility] Start: 03-13-2019 End: 03-13-2019 Office outpatient visit 25 minutes Raquel Vanesa [facility] Start: 09-13-2018 End: 09-13-2018 Phone Encounter Raquel Crawfordon [facility] Start: 09-13-2018 End: 09-13-2018 Raquelhoracio Mauro DO Work Phone: [facility] Start: 09-12-2018 End: 09-12-2018 Office outpatient visit 25 minutes Raquel Mauro [facility] Start: 08-22-2018 End: 08-22-2018 Office outpatient visit 25 minutes Raquel Mauro [facility] Start: 04-26-2018 End: 04-26-2018 Patient encounter procedure Raquel Mauro DO Work Phone: [facility] Start: 04-26-2018 End: 04-26-2018 Periodic preventive med est patient 65yrs& older Raquel Mauro [facility] Start: 04-19-2018 End: 04-19-2018 Office outpatient visit 25 minutes Raquel Mauro [facility] Start: 10-29-2017 End: 10-29-2017 Phone Encounter Raquel Mauro [facility] Start: 10-29-2017 End: 10-29-2017 Raquel Mauro DO Work Phone: [facility] Start: 09-10-2017 Ambulatory Osvaldo Bonilla [facility] [id number] Start: 07-11-2017 Ambulatory Valente Christensen Fac ility:[facility] Start: 06-27-2017 End: 06-27-2017 Office outpatient visit 15 minutes Raquel Vanesa [facility] Start: 06-04-2017 Ambulatory [facility] Facility:[facility] Start: 05-04-2017 End: 05-04-2017 Phone Encounter Raquel Vanesa [facility] Start: 05-04-2017 End: 05-04-2017 Raquel Mauro DO Work Phone: [facility] Start: 04-26-2017 End: 04-26-2017 Office outpatient visit 25 minutes Raquel Mauro [facility] Start: 03-02-2017 End: 03-02-2017 Patient encounter procedure Raquel Mauro DO Work Phone: [facility] Start: 03-02-2017 End: 03-02-2017 Periodic preventive med est patient 65yrs& older Raquel Mauro [facility] Start: 02-01-2017 End: 02-01-2017 Office outpatient visit 25 minutes Raquel Vanesa [facility] Start: 01-26-2017 End: 01-26-2017 Annotation/Addendum Raquel Vanesa [facility] Start: 01-26-2017 End: 01-26-2017 Raquel Crawfordon DO Work Phone: [facility] Start: 01-25-2017 End: 01-25-2017 Office outpatient visit 15 minutes Raquel Mauro [facility] Internal Medicine Start: 12-28-2016 End: 12-28-2016 Patient encounter procedure Raquel Mauro [facility] Internal Medicine Start: 12-28-2016 End: 12-28-2016 Raquel Mauro DO Work Phone: [facility] Internal Medicine Start: 12-20-2016 End: 12-20-2016 Phone Encounter Raquel Mauro [facility] al Medicine Start: 12-20-2016 End: 12-20-2016 Raquel Mauro DO Work Phone: [facility] Internal Medicine Start: 12-14-2016 End: 12-14-2016 Patient encounter procedure Raquel Mauro [facility] Internal Medicine Start: 12-14-2016 End: 12-14-2016 Raquel Mauro DO Work Phone: [facility] Internal Medicine Start: 07-25-2016 End: 07-25-2016 Office outpatient visit 25 minutes Raquel Mauro [facility] Internal Medicine Start: 04-12-2016 End: 04-12-2016 Medical examinations/reports status Raquel Mauro DO Work Phone: [facility] Start: 04-12-2016 End: 04-12-2016 Patient encounter procedure Raquel Mauro [facility] Internal Medicine Start: 04-12-2016 End: 04-12-2016 Raquel [...] Work Phone: Patient encounter procedure Joel Burleson CMA [facility]; [facility] Work Phone: Procedures Date Procedure Procedure Detail Performing Clinician Start: 05-26-2025 Total iron binding capacity measurement FLORENCE HARMAN Work Phone: Start: 03-24-2025 Endomysial antibody IgA level Pelon Blackwood DO Work Phone: Start: 03-24-2025 Gliadin antibody, IgA measurement Pelon Blackwood DO Work Phone: Comment on above: Negative 0 - 19 Weak Positive 20 - 30 Mo derate to Strong Positive >30 Start: 03-24-2025 Gliadin antibody, IgG measurement Pelon Blackwood DO Work Phone: Comment on above: Negative 0 - 19 Weak Positive 20 - 30 Mo derate to Strong Positive >30 Start: 03-24-2025 Measurement of immunoglobulin A in serum specimen Pelon Blackwood DO Work Phone: Comment on above: Performed at: [place] [id number] Director: Hema Arevalo PhD, Phone: [phone] Start: 03-24-2025 Total iron binding capacity measurement Pelon Blackwood DO Work Phone: Start: 03-11-2025 Biopsy vestibule mouth Phillip Wells MD Work Phone: Start: 03-11-2025 Dstrj les/scar vestibule mouth physical meths Phillip Wells MD Work Phone: Start: 11-03-2024 Medical nutrition re-assmt&ivntj indiv ea [address] Work Phone: Start: 10-01-2024 End: 10-01-2024 Blood typing serologic abo Nakia Stafford PROFILING MACHINE SET UP OPERATOR TOOL-BILLING AUDITOR Work Phone: Start: 10-01-2024 Blood typing, ABO, Rho(D) and RBC antibody screening Nakia Stafford PROFILING MACHINE SET UP OPERATOR TOOL-BILLING AUDITOR Work Phone: Start: 10-01-2024 Thromboplastin time partial plasma/whole blood Nakia Nydia PROFILING MACHINE SET UP OPERATOR TOOL-BILLING AUDITOR Work Phone: Start: 10-01-2024 Ecg routine ecg w/least 12 lds trcg only w/o i&r Nakia Stafford PROFILING MACHINE SET UP OPERATOR TOOL-BILLING AUDITOR Work Phone: Start: 09-24-2024 Radiology Comparison study - date and time Phillip Wells MD Work Phone: Start: 06-05-2023 Screening mammography Start: 06-05-2023 End: 06-05-2023 Procedure Note: See Note; NOTES: [facility] Imaging Services [address] [place] [address] SCRN MAMM (CAD)W/YEISON BILAT MR#: [id number] Acct: [id number] Name: OMAIRA OLIVER Rep #: [id number] : 1940 F 83 From: Ian gomes MD PCP: Dr. Raquel Mauro, DO Status: REG CLI Study: SCRN MAMM (CAD)W/YEISON BILAT Date of Exam: 05/26 12/18 Exam# [id number] Ordering Dr: Raquel Mauro DO MAMMOGRAPHY - [...] delay biopsy of a clinically suspicious abnormality. [id number] Electronically Signed: Ian Bhatia MD at 9:42 EDT Reading Location ID and State: [facility] / [place] , Service support , CC: Dr. Raquel Mauro DO Library Paraprofessional: Signed Raquel Mauro DO Work Phone: Start: 04-26-2023 Plain chest X-ray Start: 04-26-2023 End: 04-26-2023 Procedure Note: See Note; NOTES: [facility] Imaging Services [address] [place] [address] Chest PA and Lateral MR#: [id number] Acct: [id number] Name: OMAIRA OLIVER Rep #: [id number] : 1940 F 82 From: Jan White MD PCP: Dr. Raquel Mauro, Status: REG CLI Study: Chest PA and Lateral Date of Exam: 04/26/23 Exam# [id number] Ordering Dr: Juan C Fraser MD STUDY: [...] Mauro DO; Dr. Juan C Fraser MD Library Paraprofessional: Signed Raquel Mauro DO Work Phone: Start: 11-02-2022 End: 11-02-2022 Procedure Note: See Note; NOTES: [facility] [address] [place] [address] OFFICE VISIT Date of Service: 11/02/22 MR#: [id number] Acct: [id number] Name: OMAIRA OLIVER Rep #: [id number] : 1940 Provider: MURALI Coffey Age/Sex: 82/F Location: [facility] Status: Signed HPI HPI History of Present Illness Details: Omaira Oliver is an 82 year-old female with a history of underlying valvular heart related issues, diastolic dysfunction, pulmonary hypertension, hyperlipidemia, and hypertension. Her biggest issues is her arthritis. From a cardiac standpoint, patient is doing well. She does not have any chest discomfort/heaviness/tightne ss.She does not have any worsening symptoms of [...] 96 Intake Visit Reasons: 1 y fu Front Maker Required: No Is patient in pain?: No [...] mg PO DAILY 11/02/22 [History Confirmed 11/02/22] [facility] Medical History Acute hemorrhoid Anemia Back pain [...] I10 11/02/22 1636 <Electronically signed by Casandra CARRION P A> Date Casandra CARRION Cosign Signature: Date (if applicable) CC: DO Raquel Sylvester DO Work Phone: Start: 09-22-2022 End: 09-22-2022 Cerv Spine 2 or 3 Views Procedure Note: See Note; NOTES: [facility] Radiology [address] [place] [address] Cerv Spine 2 or 3 Views MR#: [id number] Acct: [id number] Name: OMAIRA OLIVER Rep #: [id number] : 1940 F 82 From: Enzo Verduzco MD PCP: Dr. Raquel Mauro, Status: DEP AMB Study: Cerv Spine 2 or 3 Views Date of Exam: 09/22/22 Exam# [id number] Ordering Dr: Giselle Almeida MARINE EQUIPMENT DESIGN ENGINEER-C STUDY: X-RAY - CERVICAL SPINE REASON FOR [...] Enzo Verduzco MD, ROHAN at 10:57 EDT Reading Location ID and State: [facility] / [place] Tel , Service support , CC: KARLA Almeida; Dr. Raquel Mauro DO Library Paraprofessional: Signed Raquel Mauro DO Work Phone: Start: 09-22-2022 X-ray of cervical spine Dr. Raquel Mauro Work Phone: Start: 09-01-2022 End: 09-01-2022 Orthopedic Visit Report Procedure Note: See Note; NOTES: [facility] [address] [place] [address] OFFICE VISIT Date of Service: 09/01/22 MR#: [id number] Acct: [id number] Name: OMAIRA OLIVER Rep #: [id number] : 1940 Provider: Dr. Jsoe Juan aguilera DO Age/Sex: 82/F Location: [facility] Status: Signed Intake Vital Signs 11/30/21 17:43 [...] by me, Dr. Jose Juan Wharton, 09/01/22 2097. OMAIRA OLIVER is a 82 year old [...] DO Cosigner Signature: Date (if applicable) CC: Dr. Raquel Mauro, DO Raquel Mauro DO Work Phone: Start: 08-31-2022 MRI of lumbar spine with contrast Dr. Raquel Mauro Work Phone: Start: 08-31-2022 End: 09-01-2022 Spine Lumbar W/WO Contrast Procedure Note: See Note; NOTES: [facility] Imaging Services [address] [place] [address] Spine Lumbar W/WO Contrast MR#: [id number] Acct: [id number] Name: OMAIRA OLIVER Rep #: [id number] : 1940 F 82 From: Clint Beckman MD PCP: Dr. Raquel Mauro, DO Status: REG CLI Study: Spine Lumbar W/WO Contrast Date of Exam: 05/17 Exam# [id number] Ordering Dr: Jose Juan Wharton DO STUDY: [...] 7:14 EDT Reading Location ID and State: [facility] / [place] Tel , Service support , CC: Dr. Raquel Mauro DO; Dr. Jose Juan Wharton DO Library Paraprofessional: Signed Raquel Mauro DO Work Phone: Start: 08-11-2022 X-ray of lumbar spine, two or three views Dr. Raquel Mauro Work Phone: Start: 08-11-2022 End: 08-11-2022 Lumbar Spine 2 or 3 Views Procedure Note: See Note; NOTES: [facility] [address] [place] [address] Lumbar Spine 2 or 3 Views MR#: [id number] Acct: [id number] Name: OMAIRA OLIVER Rep #: [id number] : 1940 F 82 From: Sherif Carbajal PCP: Dr. Raquel Mauro DO Status: DEP AMB Study: Lumbar Spine 2 or 3 Views Date of Exam: Exam# [id number] Ordering Dr: Jose Juan Wharton DO STUDY: [...] 14:51 EDT Reading Location ID and State: [facility] / [place] , Service support , CC: Dr. Raquel Mauro DO; Dr. Jose Juan Wharton DO Library Paraprofessional: Signed Raquel Mauro DO Work Phone: Start: 08-11-2022 End: 08-11-2022 Orthopedic Visit Report Procedure Note: See Note; NOTES: [facility] [address] [place] [address] OFFICE VISIT Date of Service: 08/11/22 MR#: [id number] Acct: [id number] Name: OMAIRA OLIVER Rep #: [id number] : 1940 Provider: Dr. Jose Juan aguilera DO Age/Sex: 82/F Location: [facility] Status: Signed Intake Vital Signs 11/30/21 17:43 [...] mg PO DAILY 10/07/21 [History Confirmed 08/11/22] [facility] Medical History Acute hemorrhoid Anemia Back pain [...] me, Dr. Jose Juan Wharton, DO 08/11/22 1740. OMAIRA OLIVER is a 82 year old [...] Jose Juan Wharton DO> Date Jose Juan Cohen Signature: Date (if applicable) CC: Dr. Raquel Mauro, DO Raquel Mauro DO Work Phone: Start: 06-01-2022 Screening mammography Start: 06-01-2022 End: 06-01-2022 SCRN MAMM (CAD)W/YEISON BILAT Procedure Note: See Note; NOTES: [facility] Imaging Services [address] [place] [address] SCRN MAMM (CAD)W/YEISON BILAT MR#: [id number] Acct: [id number] Name: OMAIRA OLIVER Rep #: [id number] : 1940 F 82 From: Ian gomes MD PCP: Dr. Raquel Mauro, DO Status: [facility] Study: SCRN MAMM (CAD)W/YEISON BILAT Date of Exam: 06/16 Exam# [id number] Ordering Dr: Raquel Mauro DO MAMMOGRAPHY - [...] delay biopsy of a clinically suspicious abnormality. [id number] Electronically Signed: Ian Bhatia MD at 13:13 EDT Reading Location ID and State: [facility] / [place] , Service support , CC: Dr. Raquel Mauro DO Library Paraprofessional: Signed Raquel Mauro DO Work Phone: Start: 11-30-2021 End: 11-30-2021 Virtual Office Visit Comments: See Note; NOTES: [facility] Services [address] [place], [place] [address] [address] OFFICE VISIT Date of Service: 11/30/21 MR#: [id number] Acct: [id number] Patient: OMAIRA OLIVER Rep #: [id number] : 1940 Provider: KARLA morgan Age/Sex: 81/F Location: [facility] Status: Signed Intake Intake Visit Reasons: COVID-19 [...] Macrobid] Adverse Reaction (Verified 11/30/21 14:45) Other [facility] Medical History Acute hemorrhoid Anemia Back pain [...] received authorization from the FDA to treat ulfs-el-upyxlkkz COVID-19 in patients at high risk for [...] with no video. Quality Reporting Tobacco Screening ([facility] 138) Smoking Status: Never smoker Coding Level of Care Code New Pt Level 1 Telephone Patient Type New History Problem Focused Exam Problem Focused Medical Decision Making Straight Forward Diagnoses COVID-19 U07.1 Over 65 years old Time Spent (min) 10 Comment 89667 Assessment and Plan Assessment and Plan (1) COVID-19: Status: Acute Plan - Judie Stephens NP, MARINE EQUIPMENT DESIGN ENGINEER-C: The patient remains appropriate for the Monoclonal [...] 1459 <Electronically signed by Judie Stephens NP MARINE EQUIPMENT DESIGN ENGINEER-C> Date Judie Stephens NP MARINE EQUIPMENT DESIGN ENGINEER-C Cosigner Signature: Date (if applicable) CC: Dr. Raquel Mauro, DO Raquel Mauro DO Work Phone: Start: 10-07-2021 End: 10-07-2021 Cardiology Visit Report Comments: See Note; NOTES: [facility] [address] [place] [address]. [address] [place] [address] OFFICE VISIT Date of Service: 10/07/21 MR#: [id number] Acct: [id number] Name: OMAIRA OLIVER Rep #: [id number] : 1940 Provider: Dr. Brad preston MD Age/Sex: 81/F [place] [facility] Status: Signed HPI HPI History of Present Illness Details: This is [...] Auscultation Intake Visit Reasons: 1 Y FU Front Maker Required: No Accompanied by: Self Allergies lidocaine [...] unit PO QDAY 07/08/18 [History Confirmed 10/07/21] ndiwxap-fnegyzrgrnhws-vqetcm ne 250 mg-250 mg-65 mg tablet 1 tab [...] D/C Summary (1) Comments: See Note; NOTES: [facility] Physical Therapy [facility] [place] [address] / REHABILITATION SERVICES DISCHARGE SUMMARY MR#: [id number] Acct: [id number] Name: OMAIRA OLIVER Rep #: [id number] : 1940 81 From: Sherif Richter PT, ATC Referring DrTone: Dr. Dallas Tomlin DO Status: R EG RCR Insurance: [employer] M[employer] SELF PAY INSURANCE It has been my [...] please feel free to call me at [phone]. Thank you for the referral of this patient. Sincerely, Sherif Richter, PT, ATC Balance/Gait/Functional tests - Balance/Special Test Scores Quick DASH Score: 27.2725 <Electronically signed by Sherif Richter PT, ATC> 09/30/21 0954 CC: Dr. Dallas Tomlin, ; Dr. Raquel Mauro DO [facility] Signed Raquel Mauro DO Work Phone: Start: 09-15-2021 End: 11-16-2021 Abdomen/Pelvis WITH Contrast Comments: See Note; NOTES: [facility] Imaging Services [address] [place] [address] Abdomen/Pelvis WITH Contrast MR#: [id number] Acct: [id number] Name: OMAIRA OLIVER Rep #: [id number] : 1940 F 81 From: Brad Lester MD PCP: Dr. Raquel Mauro, Status: REG CLI Study: Abdomen/Pelvis WITH Contrast Date of Exam: Exam# [id number] Ordering Dr: Saad RiveraOut o. STUDY: CT ABDOMEN AND PELVIS WITH [...] EDT Tel , Service support , CC: NAKIA ZAMORA; Dr. Raquel Mauro DO Library Paraprofessional: Signed Raquel Mauro DO Work Phone: Start: 09-02-2021 End: 09-02-2021 Inital Evaluation (1) - PT Comments: See Note; NOTES: [facility] [address] [place] [address]. [address] [place] [address] / REHABILITATION SERVICES INITIAL EVALUATION MR#: [id number] Acct: [id number] Name: OMAIRA OLIVER Rep #: [id number] : 1940 81 From: Sherif Richter PT, ATC Referring Dr.: Dr. Dallas Tomlin DO Status: R EG RCR Insurance: [facility] SELF PAY INSURANCE Patient's Visit Information OMAIRA [...] to be FAXED BACK to us at [phone] for Medicare purposes. For Medicare only, by signing this I certify the plan of care. Please let me know if there are questions or concerns regarding this plan of care. Physician Signature: ___Date: <Electronically signed by Sherif Richter PT, ATC> 09/02/21 1012 CC: Dr. Dallas Tomlin DO; Dr. Raquel Mauro DO [facility] Signed Raquel Mauro DO Work Phone: Start: 08-16-2021 End: 08-17-2021 Echo Complete Comments: See Note; NOTES: [facility] Cardiovascular Services [address] [place] [address] [place] [address] Echo Complete 08/16/21 0957 MR#: [id number] Acct: [id number] Name: OMAIRA OLIVER Rep #: [id number] : 1940 81 From: Brad Holguin MD Attending Dr: Dr. Brad Holguin MD Status: RE G [facility] Ordering Dr: Brad Holguin MD Date: 08/16/21 Location: [facility] Sex: F C Admitted: Reason [...] Physician: RAQUEL MAURO Performed By: Florence Estrada, VALERIECS, RVT 08/17/21 1005 Date Brad Holguin MD CC: Dr. Raquel Mauro DO; Dr. Brad Holguin MD Date Dictated: 08/16/2157 Date Transcribed: 08/17/21 1005 Library Paraprofessional: Signed Raquel Mauro DO Work Phone: Start: 07-20-2021 End: 07-20-2021 Humerus min 2 Views Comments: See Note; NOTES: [facility] Radiology [address] [place] [address] Humerus min 2 Views MR#: [id number] Acct: [id number] Name: OMAIRA OLIVER Rep #: [id number] : 1940 F 81 From: Jeanmarie Barry MD PCP: Dr. Raquel Mauro DO Status: DEP AMB Study: Humerus min 2 Views Date of Exam: 07/20/21 Exam# [id number] Ordering Dr: Dallas Tomlin DO STUDY: X-RAY [...] Dallas Tomlin DO; Dr. Raquel Mauro DO Library Paraprofessional: Signed Raquel Mauro DO Work Phone: Start: 07-20-2021 End: 07-20-2021 Shoulder min 2 Views Comments: See Note; NOTES: [facility] [address] [place] [address] Shoulder min 2 Views MR#: [id number] Acct: [id number] Name: OMAIRA OLIVER Rep #: [id number] : 1940 F 81 From: Jeanmarie Barry MD PCP: Dr. Raquel Mauro DO Status: DEP AMB Study: Shoulder min 2 Views Date of Exam: 07/20/21 Exam# [id number] Ordering Dr: Dallas Tomlin DO STUDY: X-RAY [...] Dallas Tomlin DO; Dr. Raquel Mauro DO Library Paraprofessional: Signed Raquel Mauro DO Work Phone: Start: 07-20-2021 End: 07-20-2021 Orthopedic Visit Report Comments: See Note; NOTES: [facility] Orthopaedics Sports Medicine [address] [place] [address] OFFICE VISIT Date of Service: 07/20/21 MR#: [id number] Acct: [id number] Name: OMAIRA OLIVER Rep #: [id number] : 1940 Provider: Dr. Dallas roldan DO Age/Sex: 81/F Location: [facility] Status: Signed Intake Intake Visit Reasons: RIGHT [...] unit PO QDAY 07/08/18 [History Confirmed 07/20/21] ezuwnmg-cpodvewtiwbzd-xemdhg ne 250 mg-250 mg-65 mg tablet 1 tab [...] by me, Dr. Dallas Tomlin DO 07/20/21 0746. 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 [address] [place] [address] / REEVALUATION / MEDICARE RECERTIFICATION PHYSICAL THERAPY MR#: [id number] Acct: [id number] Name: OMAIRA OLIVER Rep #: [id number] : 1940 81 From: Shamika Shearer MPT Referring Dr.: Dr. Dallas Tomlin DO Status:REG RCR [facility]URANCE Dr. Dallas Borruso, DO, It has been my pleasure to [...] Gait and locomotor training, In an aquatic setting, Passive ROM, Active ROM, Dynamic Lumbar Stabilization [...] do not hesitate to contact me at [phone] by phone or if you have questions or concerns regarding this new plan of care! Sincerely, GEORGINA Farley <Electronically signed by Shamika ERICKSON> 06/06/21 1552 CC: Dr. Dallas Tomlin DO; Dr. Raquel Mauro DO Signed For Medicare only, by signing this I certify the plan of care. Physicians Signature Date Raquel Mauro DO Work Phone: Start: 05-26-2021 End: 05-26-2021 SCRN MAMM (CAD)W/YEISON BILAT Comments: See Note; NOTES: [facility] Imaging Services [address] [place] [address] SCRN MAMM (CAD)W/YEISON BILAT MR#: [id number] Acct: [id number] Name: OMAIRA OLIVER Rep #: [id number] : 1940 F 81 From: Ian gomes MD PCP: Dr. Raquel Mauro DO Status: [facility] Study: SCRN MAMM (CAD)W/YEISON BILAT Date of Exam: 12/16 Exam# [id number] Ordering Dr: Raquel Mauro DO MAMMOGRAPHY - [...] delay biopsy of a clinically suspicious abnormality. [id number] Electronically Signed: Ian Bhatia MD at 12:49 EDT , Service support , CC: Dr. Raquel Mauro DO Library Paraprofessional: Signed Raquel Mauro DO Work Phone: Start: 05-04-2021 End: 05-04-2021 Re-Evaluation - PT (1) Comments: See Note; NOTES: [facility] [address] [place] [address] / REEVALUATION / MEDICARE RECERTIFICATION PHYSICAL THERAPY MR#: [id number] Acct: [id number] Name: OMAIRA OLIVER Rep #: [id number] : 1940 80 From: Shamika ERICKSON Referring Dr.: Dr. Dallas Tomlin DO Status:REG RCR Insurance: [facility] SELF PAY INSURANCE Dr. Dallas Tomlin, DO, [...] Gait and locomotor training, In an aquatic setting, Passive ROM, Active ROM, Dynamic Lumbar Stabilization [...] do not hesitate to contact me at [phone] by phone or if you have questions or concerns regarding this new plan of care! Sincerely, Shamika Shearer, GEORGINA <Electronically signed by Shamika Shearer MPT> 05/04/21 1322 CC: Dr. Dallas Tomlin DO; Dr. Raquel Mauro DO Signed For Medicare only, by signing this I certify the plan of care. Physicians Signature Date Raquel Mauro DO Work Phone: Start: 03-03-2021 End: 03-04-2021 Inital Evaluation (1) - PT Comments: See Note; NOTES: [facility] [address] [facility] [place] [address] / REHABILITATION SERVICES INITIAL EVALUATION MR#: [id number] Acct: [id number] Name: OMAIRA OLIVER Rep #: [id number] : 1940 80 From: Shamika ERICKSON Referring Dr.: Dr. Dallas Tomlin DO Status: R EG RCR Insurance: [facility] SELF PAY INSURANCE Patient's Visit Information OMAIRA [...] Gait and locomotor training, In an aquatic setting, Passive ROM, Active ROM, Dynamic Lumbar Stabilization [...] to be FAXED BACK to us at [phone] for Medicare purposes. For Medicare only, by signing this I certify the plan of care. Please let me know if there are questions or concerns regarding this plan of care. Physician Signature: ___Date: <Electronically signed by Shamika Shearer MPT> 03/04/21 1123 CC: Dr. Dallas Tomlin DO; Dr. Raquel Mauro DO Signed Raquel Mauro DO Work Phone: Start: 02-18-2021 End: 02-18-2021 Knee 4 or More Views Comments: See Note; NOTES: [facility] [address] [place] [address] Knee 4 or More Views MR#: [id number] Acct: [id number] Name: OMAIRA OLIVER Rep #: [id number] : 1940 F 80 From: Ian gomes MD PCP: Dr. Raquel Mauro DO Status: DEP AMB Study: Knee 4 or More Views Date of Exam: 02/18/21 Exam# [id number] Ordering Dr: Dallas Tomlin DO STUDY: X-RAY [...] Dallas Tomlin DO; Dr. Raquel Mauro DO Library Paraprofessional: Signed Raquel Mauro DO Work Phone: Start: 02-18-2021 End: 02-18-2021 Orthopedic Visit Report Comments: See Note; NOTES: [facility] [address] [place] [address] OFFICE VISIT Date of Service: 02/18/21 MR#: [id number] Acct: [id number] Name: OMAIRA OLIVER Rep #: [id number] : 1940 Provider: Dr. Dallas roldan DO Age/Sex: 80/F Location: [facility] Status: Signed Intake Intake Visit Reasons: RIGHT [...] unit PO QDAY 07/08/18 [History Confirmed 02/18/21] wqoepvi-icuzwuvxwarka-rfzuoe ne 250 mg-250 mg-65 mg tablet 1 tab [...] mg PO DAILY 02/18/21 [History Confirmed 02/18/21] [facility] Medical History Essential hypertension (Chronic) History of [...] by me, Dr. Dallas Tomlin DO 02/18/21 4446. OMAIRA OLIVER is a 80 year old [...] pain. Denies any s/sx of infection. ROS [facility] Reports system reviewed and no additional complaints, [...] D/C Summary (1) Comments: See Note; NOTES: [facility] [address] [place] [address]. [address] [place] [address] / REHABILITATION SERVICES DISCHARGE SUMMARY MR#: [id number] Acct: [id number] Name: OMAIRA OLIVER Rep #: [id number] : 1940 80 From: Shamika Shearer RUST Referring Dr.: Dr. Dallas Tomlin DO Status: R EG RCR Insurance: [facility] SELF PAY INSURANCE It has been my [...] please feel free to call me at [phone]. Thank you for the referral of this patient. Sincerely, Shamika Shearer, GEORGINA <Electronically signed by Shamika Shearer MPT> 09/15/20 1920 CC: Dr. Dallas Tomlin DO; Dr. Raquel Mauro DO Signed Raquel Mauro DO Work Phone: Start: 09-06-2020 End: 09-06-2020 Cardiology Visit Report Comments: See Note; NOTES: [facility] [address] [place], [place] [address] OFFICE VISIT Date of Service: 09/06/20 MR#: [id number] Acct: [id number] Name: OMAIRA OLIVER Rep #: [id number] : 1940 Provider: Dr. Brad preston MD Age/Sex: 80/F Location: [facility] Status: Signed HPI HPI History of Present [...] Auscultation Intake Visit Reasons: 1 y fu Front Maker Required: No Accompanied by: Self Allergies lidocaine [...] unit PO QDAY 07/08/18 [History Confirmed 09/06/20] kntmnwt-zkrmpqnywstiv-tuezjk ne 250 mg-250 mg-65 mg tablet 1 tab [...] tab PO DAILY 09/06/20 [History Confirmed 09/06/20] [facility] Medical History Essential hypertension (Chronic) History of [...] - PT (1) Comments: See Note; NOTES: [facility] [address] [place] [address]. [address] [place] [address] / REEVALUATION / MEDICARE RECERTIFICATION PHYSICAL THERAPY MR#: [id number] Acct: [id number] Name: OMAIRA OLIVER Rep #: [id number] : 1940 80 From: Shamika Shearer MPT Referring DrTone: Dr. Dallas Tomlin DO Status:REG RCR [facility] S[facility]URANCE Dr. Dallas Tomlin, DO, [...] do not hesitate to contact me at [phone] by phone or if you have questions or concerns regarding this new plan of care! Sincerely, GEORGINA Farley <Electronically signed by Shamika ERICKSON> 08/18/20 1743 CC: Dr. Dallas Tomlin DO; Dr. Raquel Mauro DO Signed For Medicare only, by signing this I certify the plan of care. Physicians Signature Date Raquel Mauro DO Work Phone: Start: 07-27-2020 End: 07-27-2020 Inital Evaluation (1) - PT Comments: See Note; NOTES: [facility] [address] [place] [address] [address] [place] [address] / REHABILITATION SERVICES INITIAL EVALUATION MR#: [id number] Acct: [id number] Name: OMAIRA OLIVER Rep #: [id number] : 1940 80 From: Shamika ERICKSON Referring Dr.: Dr. Dallas Tomlin DO Status: R EG RCR Insurance: [facility] SELF PAY INSURANCE Patient's Visit Information OMAIRA [...] to be FAXED BACK to us at [phone] for Medicare purposes. For Medicare only, by signing this I certify the plan of care. Please let me know if there are questions or concerns regarding this plan of care. Physician Signature: ___Date: <Electronically signed by Shamika Shearer RUST> 07/27/20 1403 CC: Dr. Dallas Tomlin DO; Dr. Raquel Mauro DO Signed Raquel Mauro DO Work Phone: Start: 07-21-2020 End: 07-21-2020 Knee 4 or More Views Comments: See Note; NOTES: [facility] Imaging Services [address] [place] [address] Knee 4 or More Views MR#: [id number] Acct: [id number] Name: OMAIRA OLIVER Rep #: [id number] : 1940 F 80 From: Stefanie Sow MD PCP: Dr. Raquel Mauro DO Status: REG CLI Study: Knee 4 or More Views Date of Exam: 07/21/20 Exam# [id number] Ordering Dr: Dallas Tomlin DO STUDY: X-RAY [...] Dallas Tomlin DO; Dr. Raquel Mauro DO Library Paraprofessional: Signed Raquel Mauro DO Work Phone: Start: 07-21-2020 End: 07-21-2020 Orthopedic Visit Report Comments: See Note; NOTES: [facility] [address] [place] [address] OFFICE VISIT Date of Service: 07/21/20 MR#: [id number] Acct: [id number] Name: OMAIRA OLIVER Rep #: [id number] : 1940 Provider: Dr. Dallas roldan DO Age/Sex: 80/F Location: [facility] Status: Signed Intake Vital Signs 07/21/20 BMI 27.6 Intake Visit Reasons: RIGHT KNEE Is patient in pain?: Yes Allergies lidocaine Adverse Reaction (Mild, Verified 07/21/20 10:44) shaking cortisone Adverse Reaction (Verified 07/21/20 10:44) Nausea hydrochlorothiazide Adverse Reaction (Verified 07/21/20 10:44) Other morphine Adverse Reaction (Verified 07/21/20 10:44) Other nitrofurantoin [From Macrobid] Adverse Reaction (Verified 07/21/20 10:44) Other [facility] Social History (Updated 07/21/20 @ 12:[address] Dallas Tomlin DO) Smoking Status: Never smoker alcohol intake: never substance use type: does not use HPI RIGHT KNEE: Details: Parts of this documentation were recorded by a scribe, this documentation accurately reflects the service provided and the decisions made by me, Dr. Dallas Tomlin DO 07/21/20 0801. OMAIRA OLIEVR is a 80 year old F here [...] Bone Density Study Comments: See Note; NOTES: [facility] Imaging Services [address] [place] [address] Dexa Bone Density Study MR#: [id number] Acct: [id number] Name: OMAIRA OLIVER Rep #: [id number] : 1940 F 80 From: Ian gomes MD PCP: Dr. 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 Raquel Mauro DO Library Paraprofessional: Signed Raquel Mauro Work Phone: Start: 05-25-2020 End: 05-25-2020 SCREEN MAMM (CAD) W/YEISON BILAT Comments: See Note; NOTES: [facility] Imaging Services [address] [place] [address] SCREEN MAMM (CAD) W/YEISON BILAT MR#: [id number] Acct: [id number] Name: OMAIRA OLIEVR Rep #: [id number] : 1940 F 80 From: Ian gomes MD PCP: Dr. Raquel Mauro DO Status: REG CLI Study: SCREEN MAMM (CAD) W/YEISON BILAT Date of Exam: 0 05/25/20 Exam# [id number] Ordering Dr: Raquel Mauro DO MAMMOGRAPHY - [...] delay biopsy of a clinically suspicious abnormality. [id number] Electronically Signed: Ian Bhatia, at 14:55 EDT , Service support , CC: Dr. Raquel Mauro, Library Paraprofessional: Signed Raquel Mauro Work Phone: Start: 09-08-2019 End: 09-08-2019 Cardiology Visit Report Comments: See Note; NOTES: [facility] [address] [place] [address] OFFICE VISIT Date of Service: 09/08/19 MR#: [id number] Acct: [id number] Name: OMAIRA OLIVER Rep #: [id number] : 1940 Provider: Brad Holguin MD Age/Sex: 79/F Location: [facility] Status: Signed [facility] History of Present Illness Details: [...] H Intake Visit Reasons: 1 Y FU Front Maker Required: No Accompanied by: Self Allergies lidocaine [...] PO QWEEK tab 09/08/19 [History Confirmed 09/08/19] [facility] Medical History Essential hypertension (Chronic) History of [...] or More Views Comments: See Note; NOTES: [facility] Imaging Services [address] [place] [address] [place] [address] Knee 4 or More Views MR#: [id number] Acct: [id number] Name: OMAIRA OLIVER Rep #: [id number] : 1940 F 79 From: Kyle Mae DO PCP: Raquel Mauro DO Status: REG CLI Study: Knee 4 or More Views Date of Exam: 09/03/19 Exam# [id number] Ordering Dr: Dallas Tomlin DO STUDY: X-RAY [...] Kyle Mae DO at 22:33 EDT Tel [phone], Service support , CC: Dallas Tomlin DO; Raquel Mauro DO Library Paraprofessional: Signed Raquel Mauro Start: 09-03-2019 End: 09-04-2019 L/S Spine w Bend Min 6 Vw Comments: See Note; NOTES: [facility] Imaging Services [address] [place] [address] L/S Spine w Bend Min 6 Vw MR#: [id number] Acct: [id number] Name: OMAIRA OLIVER Rep #: [id number] : 1940 F 79 From: Salvador Hodge DO PCP: Raquel Mauro DO Status: REG CLI Study: L/S Spine w Bend Min 6 Vw Date of Exam: 09/03/19 Exam# [id number] Ordering Dr: Dallas Tomlin DO STUDY: X-RAY [...] CC: Dallas Tomlin DO; Raquel Mauro DO Library Paraprofessional: Signed Raquel Mauro Start: 06-09-2019 End: 06-09-2019 Emergency Department Summary Comments: See Note; NOTES: [facility] Medical Records Department [address] [place] [address] Emergency Department Summary 06/07/19 1226 MR#: [id number] Acct: [id number] Name: OMAIRA OLIVER Rep #: [id number] : 1940 79 From: Marc Ray DO [...] knee pain This note was generated with [employer] dictation software. It may contain incorrect words, [...] problems, contact your Primary Care Provider. Call [email or web address] ([phone]) or report to the closest Emergency Room. Call 911 if necessary. 06/09/19 1534 <Electronically signed by Marc Ray DO> Date Marc Ray DO Cosigner Signature (If Indicated): Date CC: Raquel Roy Start: 05-22-2019 End: 05-23-2019 SCREEN MAMM (CAD) W/YEISON JOHNSON Comments: See Note; NOTES: [facility] Imaging Services [address] [place] [address] SCREEN MAMM (CAD) W/YEISON JOHNSON MR#: [id number] Acct: [id number] Name: OMAIRA OLIVER Rep #: [id number] : 1940 F 79 From: Jan White MD PCP: Raquel Mauro DO Status: REG CLI Study: SCREEN MAMM (CAD) W/YEISON BILAT Date of Exam: 05/22/19 Exam# [id number] Ordering Dr: Raquel Mauro DO MAMMOGRAPHY - [...] Service support , CC: Raquel Mauro DO Library Paraprofessional: Signed Raquel Mauro Work Phone: Start: 03-27-2019 End: 03-27-2019 Echocardiogram Complete Comments: See Note; NOTES: [facility] Cardiovascular Services [address] [place] [address] Echo Complete 03/27/19 09 MR#: [id number] Acct: [id number] Name: OMAIRA OLIVER Rep #: [id number] : 1940 78 From: Brad Holguin MD Attending Dr: Raquel Mauro DO Status: REG CLI Ordering Dr: Raquel Mauro DO Date: 03/27/19 Location: [facility] Sex: F C Admitted: Reason For [...] Physician: Raquel Mauro Performed By: Connie Triplett, MICHELLE, RVT 03/27/19 1440 Date Brad Holguin MD CC: Raquel Mauro DO Date Dictated: 03/27/19910 Date Transcribed: 03/27/19 1440 Library Paraprofessional: Signed Raquel Mauro Work Phone: Start: 07-08-2018 End: 07-08-2018 Cardiology Visit Report Comments: See Note; NOTES: [facility] [address] [place] [address] OFFICE VISIT Date of Service: 07/08/18 MR#: [id number] Acct: [id number] Name: OMAIRA OLIVER Rep #: [id number] : 1940 Provider: Brad Holguin MD Age/Sex: 78/F Location: [facility] Status: Signed [facility] Details: OMAIRA OLIVER, is a 78 F [...] unit PO QDAY 07/08/18 [History Confirmed 07/08/18] [facility] Medical History History of aortic valve disorder [...] compliance She had a stress nuclear imaging fvgof-jvdychysynily-mqzqhvkd d on 01/23/2017. Per the myocardial perfusion report [...] Brad Holguin MD> Date [facility] Signature: Date (if applicable) CC: Raquel Roy Start: 05-10-2018 End: 05-14-2018 SCREENING MAMM (CAD), BILAT Comments: See Note; NOTES: [facility] Imaging Services [address] [place] [address] SCREENING MAMM (CAD), BILAT MR#: [id number] Acct: [id number] Name: OMAIRA OLIVER Rep #: [id number] : 1940 F 77 From: Ian Bhatia MD PCP: Raquel Mauro DO Status: REG CLI Study: SCREENING MAMM (CAD), BILAT Date of Exam: 05/10/18 Exam# [id number] Ordering Dr: Raquel Mauro DO MAMMOGRAPHY - [...] delay biopsy of a clinically suspicious abnormality. [id number] Electronically Signed: Ian Bhatia MD at 8:27 EDT Tel [phone], Service support , CC: Raquel Mauro DO Library Paraprofessional: Signed Raquel Mauro Work Phone: Start: 04-24-2018 End: 04-24-2018 Orthopedic Visit Report Comments: See Note; NOTES: [facility] Orthopaedics AND Sports Medicine [address] [place] [address] OFFICE VISIT Date of Service: 04/15/18 MR#: [id number] Acct: [id number] Name: OMAIRA OLIVER Rep #: [id number] : 1940 Provider: Calvin Alanis DO Age/Sex: 77/F Location: [facility] Status: Signed Intake Intake Visit Reasons: RIGHT [...] drop PO TID 02/26/18 [History Confirmed 03/05/18] Swedish Black Radish 1 tab PO TID 02/26/18 [...] Austinignsarmad Signature: Date (if applicable) CC: Raquel Mauro Start: 04-15-2018 End: 04-15-2018 Knee 4 or More Views Comments: See Note; NOTES: [facility] Imaging Services [address] [address] Knee 4 or More Views MR#: [id number] Acct: [id number] Name: OMAIRA OLIVER Rep #: [id number] : 1940 F 77 From: Andrew Arcos DO PCP: Raquel Mauro DO Status: REG CLI Study: Knee 4 or More Views Date of Exam: 04/15/18 Exam# [id number] Ordering Dr: Cavlin Alanis DO STUDY: X-RAY - RIGHT KNEE [...] Andrew Arcos DO at 16:54 EDT Tel [phone], Service support , CC: Raquel Mauro DO; Calvin Alanis DO Library Paraprofessional: Signed Raquel Mauro Start: 04-11-2018 End: 04-11-2018 Inital Evaluation (1) - PT Comments: See Note; NOTES: [facility] Physical Therapy [facility] [address] [place] [address]. [address] [place] [address] Fax REHABILITATION SERVICES INITIAL EVALUATION MR#: [id number] Acct: [id number] Name: OMAIRA OLIVER Rep #: [id number] : 1940 77 From: Sherif Richter PT, ATC Referring Dr.: Calvin Alanis DO Status: REG RCR Insurance: [facility] [employer] [facility] Patient's Visit Information OMAIRA OLIVER is a 77 year old F referred to Physical Therapy by Calvin Alanis DO with a diagnosis of R UKA. Date of Evaluation: 04/11/18 Physical Therapist: Sherif Richter PT, - Visit Plan Frequency: 3x /Week [...] to be FAXED BACK to us at [phone] for Medicare purposes. Please let me know if there are questions or concerns regarding this plan of care. Physician Signature: ___Date: <Electronically signed by Sherif Richter PT, ATC> 04/11/18 1632 CC: Raquel Mauro DOMikel Alanis DO [facility] Signed For Medicare only, by signing this I certify the plan of care. Physicians Signature Date Raquel Mauro Start: 03-20-2018 End: 03-20-2018 Orthopedic Visit Report Comments: See Note; NOTES: [facility] Orthopaedics AND Sports Medicine [address] [place] [address] OFFICE VISIT Date of Service: 03/18/18 MR#: [id number] Acct: [id number] Name: OMAIRA OLIVER Rep #: [id number] : 1940 Provider: Calvin Alanis DO Age/Sex: [...] drop PO TID 02/26/18 [History Confirmed 03/05/18] Swedish Black Radish 1 tab PO TID 02/26/18 [...] 12 lead ECG Comments: See Note; NOTES: [facility] Cardiovascular Services [address] [place] [address] EK - [facility] 02/26/18 1234 MR#: [id number] Acct: [id number] Name: OMAIRA OLIVER Clement Rep #: [id number] : 1940 77 From: Kentrell Palacios MD Attending Dr: Calvin Alanis DO Status: PRE IN Ordering Dr: Sebastian Blancas MD Date: 02/26/18 Location: [facility] Sex: F C Admitted: Test Reason : Blood Pressure : / mmHG Vent. Rate : 074 BPM Atrial Rate : 074 BPM P-R Int : 142 ms QRS Dur : 082 ms QT Int : 396 ms P-R-T Axes : 050 -04 047 degrees QTc Int : 439 ms Normal sinus rhythm Normal ECG Confirmed by KATE STRONG, KENTRELL ([id number]), editor publications JORGE ZUNIGA ([id number]) on 03/01/2018 12:49:45 PM Referred By: Calvin Alanis Confirmed By:KENTRELL PALACIOS MD 03/01/18 1249 Date Kentrell Palacios MD CC: Sebastian Blancas MD; Raquel Mauro DO; Calvin Alanis DO Date Dictated: 02/26/18 1234 Date Transcribed: 02/26/18 1234 Library Paraprofessional: Signed Raquel Mauro Work Phone: Start: 02-24-2018 End: 02-24-2018 Orthopedic Visit Report Comments: See Note; NOTES: [facility] Orthopaedics AND Sports Medicine [address] [place] [address] OFFICE VISIT Date of Service: 02/20/18 MR#: [id number] Acct: [id number] Name: OMAIRA OLIVER Rep #: [id number] : 1940 Provider: Cavlin Alanis DO Age/Sex: 77/F Location: [facility] Status: Signed Intake Intake Visit Reasons: RIGHT [...] mg PO DAILY 08/28/17 [History Confirmed 02/20/18] Aspirin/Acetaminophen/Caffei ne [Excedrin Extra Strength Caplet] 2 ea PO [...] chronic 02/24/18 1034 <Electronically signed by Calvin Zeke DO> Date Calvin Alanis DO Cosigner Signature: Date (if applicable) CC: Raquel Mauro Start: 02-11-2018 End: 02-11-2018 Orthopedic Visit Report Comments: See Note; NOTES: [facility] Orthopaedics AND Sports Medicine [address] [place] [address] OFFICE VISIT Date of Service: 02/07/18 MR#: [id number] Acct: [id number] Name: OMAIRA OLIVER Rep #: [id number] : 1940 Provider: Calvin Alanis DO Age/Sex: 77/F Location: [facility] Status: Signed Intake Intake Visit Reasons: right [...] mg PO DAILY 08/28/17 [History Confirmed 01/16/18] Aspirin/Acetaminophen/Caffei ne [Excedrin Extra Strength Caplet] 2 ea PO [...] Joint Only (Routine) Comments: See Note; NOTES: [facility] Imaging Services [address] [place] [address] Lower Ext Joint Only (Routine) MR#: [id number] Acct: [id number] Name: OMAIRA OLIVER Rep #: [id number] : 1940 F 77 From: Estephania Zuniga MD PCP: Raquel Mauro DO Status: REG CLI Study: Lower Ext Joint Only (Routine) Date of Exam: 02/05/18 Exam# [id number] Ordering Dr: Calvin Alanis DO STUDY: MRI [...] Normal proximal tibiofibular articulation. Normal lateral collateral (fibular) ligament. Normal popliteus tendon. Normal biceps femoris [...] CC: Raquel Mauro DO; Calvin Alanis DO Library Paraprofessional: Signed Raquel Mauro Start: 01-18-2018 End: 01-18-2018 Orthopedic Visit Report Comments: See Note; NOTES: [facility] Orthopaedics AND Sports Medicine [address] [place] [address] OFFICE VISIT Date of Service: 01/16/18 MR#: [id number] Acct: [id number] Name: OMAIRA OLIVER Rep #: [id number] : 1940 Provider: Calvin Alanis DO Age/Sex: 77/F Location: [facility] Status: Signed Intake Intake Visit Reasons: RIGHT [...] mg PO DAILY 08/28/17 [History Confirmed 01/16/18] Aspirin/Acetaminophen/Caffei ne [Excedrin Extra Strength Caplet] 2 ea PO [...] Orthopedic Visit Report Comments: See Note; NOTES: [facility] Orthopaedics AND Sports Medicine [address] [place] [address] OFFICE VISIT Date of Service: 12/06/17 MR#: [id number] Acct: [id number] Name: OMAIRA OLIVER Rep #: [id number] : 1940 Provider: Calvin Alanis DO Age/Sex: 77/F Location: [facility] Status: Signed Intake Intake Visit Reasons: right [...] mg PO DAILY 08/28/17 [History Confirmed 12/06/17] Aspirin/Acetaminophen/Caffei ne [Excedrin Extra Strength Caplet] 2 ea PO PRN PRN 10/04/17 [History Confirmed 12/06/17] Hydrocodone Bitart/Apap 5-325 [[place] 5MG-325MG] 1 tab PO Q6H PRN PRN [...] Calvin Alanis DO> Date Calvin Alanis DO Cosignsarmad Signature: Date (if applicable) CC: Raquel Mauro Start: 11-23-2017 End: 11-23-2017 PT D/C Summary (1) Comments: See Note; NOTES: [facility] Physical Therapy [facility] [place] [address] Fax REHABILITATION SERVICES DISCHARGE SUMMARY MR#: [id number] Acct: [id number] Name: OMAIRA OLIVER Rep #: [id number] : 1940 77 From: Sherif Richter PT, ATC Referring DrTone: Calvin Alanis DO Status: REG RCR Insurance: [facility] HP - PT D/C Summary It has [...] please feel free to call me at [phone]. Thank you for the referral of this patient. Sincerely, Sherif Richter PT, <Electronically signed by Sherif Richter PT, ATC> 11/23/17 1018 CC: Raquel Mauro DO; Calvin Alanis DO [facility] Signed Raquel Mauro Start: 10-29-2017 End: 10-29-2017 Inital Evaluation (1) - PT Comments: See Note; NOTES: [facility] Physical Therapy [facility] [address] [place] [address]. [address] [place] [address] Fax REHABILITATION SERVICES INITIAL EVALUATION MR#: [id number] Acct: [id number] Name: OMAIRA OLIVER Rep #: [id number] : 1940 77 From: Sherif Richter PT, ATC Referring Dr.: Calvin Alanis DO Status: REG RCR Insurance: [facility] Patient's Visit Information OMAIRA OLIVER is a 77 year old F referred to Physical Therapy by Calvin Alanis DO with a diagnosis of R knee pain. Date of Evaluation: 10/29/17 Physical Therapist: Sherif Richter PT, - Visit Plan Frequency: 2-3x /Week [...] to be FAXED BACK to us at [phone] for Medicare purposes. Please let me know if there are questions or concerns regarding this plan of care. Physician Signature: ___Date: <Electronically signed by Sherif Richter PT, ATC> 10/29/17 1018 CC: Raquel Mauro DO; Calvin Alanis DO [facility] Signed For Medicare only, by signing this I certify the plan of care. Physicians Signature Date Raquel Mauro Start: 10-25-2017 End: 10-27-2017 Knee 4 or More Views Comments: See Note; NOTES: [facility] Imaging Services [address] [place] [address] Knee 4 or More Views MR#: [id number] Acct: [id number] Name: OMAIRA OLIVER Rep #: [id number] : 1940 F 77 From: Salvador Hodge DO PCP: Raquel Mauro DO Status: REG CLI Study: Knee 4 or More Views Date of Exam: 10/25/17 Exam# [id number] Ordering Dr: Calvin Alanis DO STUDY: X-RAY [...] CC: Raquel Mauro DO; Calvin Alanis DO Library Paraprofessional: Signed Raquel Mauro Start: 10-13-2017 End: 10-13-2017 Discharge Instruction Comments: See Note; NOTES: [facility] Medical Records Department [address] [place] [address] Instructions for Home/Discharge Instructions 10/12/17 1009 MR#: [id number] Acct: [id number] Name: OMAIRA OLIVER Rep #: [id number] : 1940 77 From: Carlo Burch MD PCP: Raquel Mauro DO Status: DEP [facility] Discharge Diet: Light diet - advance as [...] Amlodipine [Norvasc] 5 mg PO DAILY 08/28/17 Aspirin/Acetaminophen/Caffei ne [Excedrin Extra Strength Caplet] 2 each PO PRN PRN 10/04/17 Primary Care Physician: Raquel Mauro DO [Primary Care Provider] - Please Follow Up With: Carlo Burch MD - [phone] When: Call to make an appointment to be seen on Wednesday 10/17. 10/13/17 0638 <Electronically signed by Calro Burch MD> Date Carlo Burch MD CC: Raquel Roy Start: 10-12-2017 End: 10-12-2017 Operative Report Comments: See Note; NOTES: [facility] Medical Records Department [address] [place] [address] Operative Report 10/12/17 1046 MR#: [id number] Acct: [id number] Name: OMAIRA OLIVER Rep #: [id number] : 1940 77 From: Carlo Burch MD PCP: Raquel Mauro DO Status: REG SDC Y Location: [place] [address] Report of Operation Date of Procedure: 10/12/17 Pre-Operative Diagnosis: Left carpal tunnel syndrome Post-Operative Diagnosis: Same Surgery/Procedure Performed:: Left carpal tunnel release Description of Surgical Findings:: Amount and informed consent was obtained. The patient was taken to the operating place upon the table. She underwent Panhandle block regional anesthesia the left upper extremity. [...] Carlo Burch M.D., F.A.C.S. Type of Anesthesia:: Block,Panhandle Anesthesiologist: Virginia Lam 10/12/17 1049 <Electronically signed by Carlo Burch MD> Date Carlo Burch MD CC: Raquel Mauro DO; Carlo Burch MD Signed Raquel Mauro Start: 10-05-2017 End: 10-05-2017 Carotid Duplex Ultrasound Comments: See Note; NOTES: [facility] Cardiovascular Services [address] [place] [address] Carotid Duplex Ultrasound 10/05/17 1056 MR#: [id number] Acct: [id number] Name: OMAIRA OLIVER Rep #: [id number] : 1940 77 From: Carlo Burch MD Attending Dr: Carlo Burch MD Status: REG CLI Ordering Dr: Carlo Burch MD Date: 10/05/17 Location: [facility] Sex: F C Admitted: Reason For [...] the left vertebral artery. Procedure Carotid Duplex 24984. Exam performed in department. Interpretation Summary No significant plague bilateral extracranial internal carotids with <50% stenosis bilaterally. Normal flow bilateral external carotids Patent and antegrade vertebrals Ordering Physician: Carlo Burch Referring Physician: Raquel Mauro M.D. Performed By: Amanda Bergman RVT 10/05/17 1427 Date Carlo Burch MD CC: Raquel Mauro DO; Carlo Burch MD Date Dictated: 10/05/17 1056 Date Transcribed: 10/05/171426 Library Paraprofessional: Signed Sakina Cason Work Phone: Start: 09-27-2017 End: 09-27-2017 Duplex scan extracranial art compl bi study Carlo Burch MD Work Phone: Start: 08-30-2017 End: 08-30-2017 Operative Report Comments: See Note; NOTES: [facility] Medical Records Department [address] [place] [address] Operative Report 08/30/17 0955 MR#: [id number] Acct: [id number] Name: OMAIRA OLIVER Rep #: [id number] : 1940 77 From: Hugh Valverde MD PCP: Raquel Mauro DO Status: REG SDC Y Location: [place] [address] Operative Report Date of Procedure: 08/30/17 Operative dictation on Omaira Oliver Preoperative diagnosis: Mucosal lesions left buccal region, 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 Inflammatory change left lateral tongue, and dry mouth symptoms. Postoperative diagnosis: Same with pathology pending Procedure: Multiple mucosal biopsies including left buccal region, left lower lip region, and left lateral tongue. Anesthesia: MAC local (Jaye Gabriel [employer] Complications: None Details of procedure: The patient [...] 08-30-2017 Discharge Instruction Comments: See Note; NOTES: [facility] Medical Records Department [address] [place] [address] Instructions for Home/Discharge Instructions 08/30/17922 MR#: [id number] Acct: [id number] Name: OMAIRA OLIVER Rep #: [id number] : 1940 77 From: Hugh Valverde MD PCP: Raquel Mauro DO Status: REG [facility] You will use the following diet at [...] E.C. [Ecotrin] 81 mg PO DAILY@0800 12/25/16 Aspirin/Acetaminophen/Caffei ne [Excedrin Migraine Caplet] 1 each PO PRN [...] follow up next week, call for appointment. 08/30/17 0925 <Electronically signed by Hugh Valverde MD> Date Hugh Valverde MD CC: Raquel Roy Start: 04-10-2017 End: 04-10-2017 Dexa Bone Density Study (HP) Comments: See Note; NOTES: [facility] Imaging Services [address] [place] [address] Verdana 4d Dexa Bone Density Study (HP) MR#: [id number] Acct: [id number] Name: OMAIRA OLIVER Rep #: [id number] : 1940 F 76 From: Ian Bhatia MD PCP: Raquel Mauro DO Status: REG CLI Study: Dexa Bone Density Study (HP) Date of Exam: 04/10/17 Exam# [id number] Ordering Dr: Raquel Mauro DO STUDY: DUAL [...] Ian Bhatia MD at 10:57 EDT Tel [phone], Service support , CC: Raquel Mauro DO Library Paraprofessional: Signed Raquel Mauro Work Phone: Start: 04-10-2017 End: 04-12-2017 SCREENING MAMM (CAD), BILAT Comments: See Note; NOTES: [facility] Imaging Services [address] [place] [address] Verdabeatrice 4d SCREENING MAMM (CAD), BILAT MR#: [id number] Acct: [id number] Name: OMAIRA OLIVER Rep #: [id number] : 1940 F 76 From: Ian Bhatia MD PCP: Vanesa DO,Raquel Status: REG CLI Study: SCREENING MAMM (CAD), BILAT Date of Exam: 04/10/17 Exam# [id number] Ordering Dr: Raquel Mauro DO MAMMOGRAPHY - [...] delay biopsy of a clinically suspicious abnormality. [id number] Electronically Signed: Ian Bhatia MD at 8:05 EDT Tel [phone], Service support , CC: Raquel Mauro DO Library Paraprofessional: Signed Raquel Mauro Work Phone: Start: 02-21-2017 End: 02-21-2017 Follow Up Appt 6 months Casandra Storey PA-C Work Phone: Start: 02-21-2017 End: 02-21-2017 PFM Casandra Storey PA-C Work Phone: Start: 02-08-2017 End: 02-08-2017 OT D/C of Non Returning Pt Comments: See Note; NOTES: [facility] Occupational Therapy [facility] [address] [place], [place] [address] Fax REHABILITATION SERVICES DISCHARGE SUMMARY MR#: [id number] Acct: [id number] Name: OMAIRA OLIVER Rep #: [id number] : 1940 76 From: Casandra Lopez Referring [...] Test - Chemical Comments: See Note; NOTES: [facility] Imaging Services [address] [place] [address] Verdana 4d Nuclear Stress Test - Chemical MR#: [id number] Acct: [id number] Name: OMAIRA OLIVER Rep #: [id number] : 1940 76 From: Brad Holguin MD [...] 81%. Brad Holguin MD T: NTS JOB: [id number] 01/24/17 0812 <Electronically signed by Brad Holguin MD> Date Brad Holguin MD CC: Raquel Mauro DO; Brad Holguin MD Date Dictated: 01/23/171654 Date Transcribed: 01/23/171654 Library Paraprofessional: Signed Raquel Mauro Start: 01-16-2017 End: 01-16-2017 Renal Artery Duplex Comments: See Note; NOTES: [facility] Cardiovascular Services [address] [place] [address] Renal Artery Duplex Ultrasound 01/15/17 0853 MR#: [id number] Acct: [id number] Name: OMAIRA OLIVER Rep #: [id number] : 1940 76 From: Quang Perez MD Attending Dr: Brad Holguin MD Status: REG CLI Ordering Dr: Brad Holguin MD Date: 01/15/17 Location: [facility] Sex: F C Admitted: Reason For [...] Raquel Mauro M.D. Performed By: Amanda Bergman RVMoses 01/16/17821 Date Quang Perez MD CC: Raquel Mauro DO; Brad Holguin MD Date Dictated: 01/15/17852 Date Transcribed: 01/16/17821 Library Paraprofessional: Signed Raquel Mauro Start: 01-15-2017 End: 01-15-2017 Chest PA and Lateral Comments: See Note; NOTES: [facility] Imaging Services [address] [place] [address] [facility] 4d Chest PA and Lateral MR#: [id number] Acct: [id number] Name: OMAIRA OLIVER Rep #: [id number] : 1940 F 76 From: Elvira Penn MD PCP: Raquel Mauro DO Status: REG CLI Study: Chest PA and Lateral Date of Exam: 01/15/17 Exam# [id number] Ordering Dr: Brad Holguin MD STUDY: X-RAY [...] at 17:54 EST Tel , Service support [phone], CC: Raquel Mauro DO; Brad Holguin MD Library Paraprofessional: Signed Raquel Mauro Start: 01-04-2017 End: 01-16-2017 [...] 01-04-2017 Vascular Test/LEAS/UEAS Comments: See Note; NOTES: [facility] Cardiovascular Services [address] [place] [address] Verdana 4d Ankle Brachial Index MR#: [id number] Acct: [id number] Name: OMAIRA OLIVER Rep #: [id number] : 1940 76 From: Quang Perez MD Primary Care: Vanesa BROWNERaquel Status: REG RCR Ordering Dr: Quang Perez [...] bilaterally. Quang Perez MD T: NTS JOB: [id number] 01/04/17 1217 <Electronically signed by Quang Perez MD> Date Quang Perez MD CC: Raquel Mauro DO; Quang Perez MD Date Dictated: 01/03/171702 Date Transcribed: 01/03/171702 Library Paraprofessional: Signed Raquel Mauro Start: 01-01-2017 End: 01-01-2017 Venous Duplex Lower Extremity Comments: See Note; NOTES: [facility] Cardiovascular Services [address] [place] [address] Venous Duplex US - Talib Extrem 01/01/17 0800 MR#: [id number] Acct: [id number] Name: OMAIRA OLIVER Rep #: [id number] : 1940 76 From: Quang Perez MD Attending Dr: Quang Perez MD Status: REG RCR Ordering Dr: Quang Perez MD Date: 01/01/17 Location: Sex: F [...] Quang Perez Performed By: Zach Rosas RVT 01/01/178 Date Quang Perez MD CC: Raquel Mauro DO; Quang Perez MD Date Dictated: 01/01/17 0800 Date Transcribed: 01/01/172147 Library Paraprofessional: Signed Raquel Mauro Start: 12-26-2016 End: 12-26-2016 OT General Evaluation Comments: See Note; NOTES: [facility] Occupational Therapy [facility] [address] [place], [place] [address] Fax REHABILITATION SERVICES INITIAL EVALUATION MR#: [id number] Acct: [id number] Name: OMAIRA OLIVER Rep #: [id number] : 1940 76 From: Casandra Lopez Referring [...] to be FAXED BACK to us at [phone] for Medicare purposes. Please let me know if there are questions or concerns regarding this plan of care. Physician Signature: ___Date: <Electronically signed by Casandra Lopez > 12/26/16 1724 CC: Imelda Gutiérrez DO; Ari Rock MK Signed For Medicare only, by signing this I certify the plan of care. Physicians Signature Date Raquel Mauro Start: 12-25-2016 End: 12-25-2016 Wound Ctr History AND Physical Comments: See Note; NOTES: [facility] [address] [place] [address] Wound Ctr History AND Physical 12/25/16 1539 MR#: [id number] Acct: [id number] Name: OMAIRA OLIVER Rep #: [id number] : 1940 76 From: Quang Perez MD [...] were drawn at her primary care office, [facility]. We will attempt to obtain copies of [...] E.C. [Ecotrin] 81 mg PO DAILY@0800 12/25/16 Aspirin/Acetaminophen/Caffei ne 1 each PO PRN 12/25/16 [Excedrin Migraine [...] Recorded Date Recorded By Document 12/25/16 14:15 [id number] 12/25/16 14:36 12/25/16 14:15 Wound Center Nurse 1 [Edema Assessment] -Lower Limb Edema Present Yes -Right Calf (cm) 39.0 -Right Ankle (cm) 25.3 -Left Calf (cm) 40.0 -Left Ankle (cm) 25.8 WC - Nurse 2 - General Ulcer CM Notes Start: 12/25/16 08:31 Freq: Status: Active Activity Type Activity Date Activity User E-Sign Co-Sign Detail Recorded Client Recorded Date Recorded By Document 12/25/16 15:11 DV [id number] 12/25/16 15:13 DV 12/25/16 15:11 Wound Center [...] Date Recorded By Document 12/25/16 15:11 DV [id number] 12/25/16 15:13 DV 12/25/16 15:11 Wound Center [...] 12-22-2016 Echocardiogram Complete Comments: See Note; NOTES: [facility] Cardiovascular Services [address] [place] [address] Echo Complete 12/22/16 1018 MR#: [id number] Acct: [id number] Name: OMAIRA OLIVER Rep #: [id number] : 1940 76 From: Brad Holguin MD Attending Dr: Ari Rock Status: REG CLI Ordering Dr: Ari Rock Date: 12/22/16 Location: [facility] Sex: F C Admitted: Reason For [...] Rock Date Dictated: 12/22/16 1018 Date Transcribed: 12/22/16 1558 Library Paraprofessional: Signed Ari Rock Work Phone: Start: 05-03-2016 End: 05-03-2016 Echocardiogram Complete Comments: See Note; NOTES: [facility] Cardiovascular Services [address] [place] [address] Echo Complete 05/03/16 1018 MR#: [id number] Acct: [id number] Name: OMAIRA OLIVER Rep #: [id number] : 1940 75 From: Brad Holguin MD [...] Rock Date Dictated: 05/03/16 1018 Date Transcribed: 05/03/161528 Library Paraprofessional: Signed Raquel Mauro Work Phone: Back Surgery Clarita Adriane Comment on above: 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 - Dr Zuniga, 1996 Back Surgery Clarita Adriane Comment on above: 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 - Dr Zuniga 1996 Back Surgery Arlene Bland Comment on above: 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 - Dr Zuniga 1996 Back Surgery Arlene Bland Comment on above: 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 - Dr Zuniga 1996 Back Surgery Shamika Rodolfo Comment on above: 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 - Dr Zuniga 1996 Back Surgery Julio Aguilera Comment on above: 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 - Dr Zuniga 1996 Blood pressure monitoring Clarita Gravotto Comment on above: 3x weekly Blood pressure monitoring Clarita Adriane Comment on above: 3x weekly Blood pressure monitoring Arlene Bland Comment on above: 3x weekly Blood pressure monitoring Arlene Bland Comment on above: 3x weekly Blood pressure monitoring Shamika Rodolfo Comment on above: 3x weekly Blood pressure monitoring Julio Wang LPN Comment on above: 3x weekly Blood pressure monitoring Kayela [place] GLOBE MOUNTER Bone density scan Clarita Gra vius Comment on above: 2014 - no osteoporosis/penia Bone density scan Clarita Gra vius Comment on above: 2014 - no osteoporosis/penia Bone density scan Arlene gonzalez Comment on above: 2014 - no osteoporosis/penia Bone density scan Arlene gonzalez Comment on above: 2014 - no osteoporosis/penia Bone density scan Shamika mcneill Comment on above: 2013 - no osteoporosis/penia Bone density scan Juloi hardwick 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 MIG 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 Comment on above: 2013 - no osteoporosis/penia Bone density scan Joel smith GLOBE MOUNTER Carpal Tunnel Surger y - Left Clarita Gravius Comment on above: 10/12/17 Carpal Tunnel Surger y - Left Clarita Gravius Comment on above: 10/12/17 Carpal Tunnel Surger y - Left Arlene Bland Comment on above: 10/12/17 Carpal Tunnel Surger y - Left Arlene Bland Comment on above: 10/12/17 Carpal Tunnel Surger y - Left Shamika Reynolds Comment on above: 10/12/17 CHolecystectom Clarita Graviu s Comment on above: [place], 1999 CHolecystectom Clarita Graviu s Comment on above: [place], 1999 CHolecystectom Arlene bañuelos Comment on above: [place], 1999 CHolecystectom Arlene bañuelos Comment on above: [place], 1999 CHolecystectom Shamika Reynolds Comment on above: [place], 1999 CHolecystectom Julio Wang LPN Comment on above: [place], 1999 Colonoscopy Clarita Gravius Comment on above: 2014 Colonoscopy Clarita Gravius Comment on above: 2014 Colonoscopy Arlene Bland Comment on above: 2014 Colonoscopy Arlene Bland Comment on above: 2014 Colonoscopy Shamika Slarb Comment on above: 2014 Colonoscopy Julio Wang LP N Comment on above: 2014 Complete Skin Exam Clarita Gr avius Comment on above: 01/11/2016 Complete Skin Exam Clarita Gr avius Comment on above: 01/11/2016 Complete Skin Exam Arlene chaidez Comment on above: 01/11/2016 Complete Skin Exam Arlene chaidez Comment on above: 01/11/2016 Complete Skin Exam Shmaika santillan Comment on above: 01/11/2016 Complete Skin Exam Julio Fish FABRICATION MIG WELDER Comment on above: 01/11/2016 D/C [facility] 1961 [facility] n Gravius D/C [facility] 1963 Jasmi n Gravius D/C [facility] 1963 Arlene Bland D/C [facility] 1963 Arlene Bland D/C [facility] 1963 Naveen Reynolds D/[facility] 1962 Dayne Wang LPN Decompression of med shaniqua nerve Arlene Bland Comment on above: thumb lt hand 02/04/18 10/12/17 Decompression of med shaniqua nerve Shamika Reynolds Comment on above: thumb lt hand 02/04/18 Decompression of med shaniqua nerve Julio Wang LPN Comment on above: thumb lt hand 02/04/18 10/12/17 Decompression of med shaniqua nerve Joel Burleson GLOBE MOUNTER Hysterectomy Clarita Gravius Comment on above: [place] 1988 Hysterectomy Clarita Gravius Comment on above: [place] 1988 Hysterectomy Arlene Bland Comment on above: [place] 1988 Hysterectomy Arlene Bland Comment on above: [place] 1988 Hysterectomy Shamika Rodolfo Comment on above: [place] 1988 Hysterectomy Julio Aguilera Comment on above: [place] 1988 Ophthalmic examinati on and evaluation Clarita Gravius Comment on above: 2014 - Dr French Ophthalmic examinati on and evaluation Clarita Gravius Comment on above: 2014 - Dr French Ophthalmic examinati on and evaluation Arlene Bland Comment on above: 2014 - Dr French Ophthalmic examinati on and evaluation Arlene Bland Comment on above: 2014 - Dr French Ophthalmic examinati on and evaluation Shamika Reynolds Comment on above: 2014 - Dr French Ophthalmic examinati on and evaluation Julio Wang LPN Comment on above: 2014 - Dr French Ophthalmic examinati on and evaluation Joel Burleson CMA Pap/Pelvic Clarita Gravius Comment on above: 01/26/2016 Pap/Pelvic Clarita Gravius Comment on above: 01/26/2016 Pap/Pelvic Arlene Bland Comment on above: 01/26/2016 Pap/Pelvic Arlene Bland Comment on above: 01/26/2016 Pap/Pelvic Shamika Reynolds Comment on above: 01/26/2016 Pap/Pelvic Julio Aguilera Comment on above: 01/26/2016 Release Clarita Gravius Comment on above: thumb lt hand 02/04/18 Release Clarita Gravius Comment on above: thumb lt hand 02/04/18 Release Arlene Bland Comment on above: thumb lt hand 02/04/18 Rt knee sx Clarita Gravius Comment on above: 03/05/18 Rt knee sx Clarita Gravius Comment on above: 03/05/18 Rt knee sx Arlene Bland Comment on above: 03/05/18 Rt knee sx Arlene Messenger Comment on above: 03/05/18 Rt knee sx Shamika Slaosito Comment on above: 03/05/18 Rt knee sx Julio Aguilera Comment on above: 03/05/18 Screening mammography Clarita Gravius Comment on above: 01/18/2016 Screening mammography Clarita Gravius Comment on above: 01/18/2016 Screening mammography Arlene Messenger Comment on above: 01/18/2016 Screening mammography Arlene Messenger Comment on above: 01/18/2016 Screening mammography Shamika Slarb Comment on above: 01/18/2016 Screening mammography Julio Wang LPN Comment on above: 01/18/2016 Screening mammography Kajessicaa Benjy GLOBE MOUNTER Tonsilectomy Clarita Gravius Comment on above: [place] 1950 Tonsilectomy Clarita Gravius Comment on above: [place] 1950 Tonsilectomy Arlene Bland Comment on above: [place] 1950 Tonsilectomy Arlene Messenger Comment on above: [place] 1950 Tonsilectomy Shamika Slarb Comment on above: [place] 1950 Tonsilectomy Julio Aguilera Comment on above: [place] 1948 Kayela Benjy GLOBE MOUNTER Plan of Treatment Date Care Activity Detail Author Start: 08-12-2025 End: 08-12-2025 Patient encounter procedure 08/12/2025 10:30 AM EDT Procedure Visit [facility] Otolaryngology (ENT) [address] [place], [place] [phone] Phillip Wells MD [address] [place] [phone] [facility] Otolaryngology (ENT) Start: 05-22-2025 End: 05-22-2025 Patient encounter procedure 05/22/2025 10:00 AM EDT Office Visit [facility] Otolaryngology (ENT) [address] [place] [phone] Phillip Wells MD [address] [place] [address] [phone] [facility] Otolaryngology (ENT) Start: 03-11-2025 End: 03-11-2025 Patient encounter procedure 03/11/2025 10:00 AM EDT Procedure Visit [facility] Otolaryngology (ENT) [address] [place] [address] Phillip Wells MD [address] [place] [phone] [facility] Otolaryngology (ENT) Start: 02-27-2025 End: 02-27-2025 Patient encounter procedure 02/27/2025 2:00 PM EDT Office Visit [facility] Otolaryngology (ENT) [address] [place] [address] [phone] Phillip Wells MD [address] [place] [address]22 [facility] Otolaryngology (ENT) Start: 01-02-2025 End: 01-02-2025 Patient encounter procedure 01/02/2025 2:15 PM EST Office Visit [facility] Otolaryngology (ENT) [address] [place] [address] 16421 Phillip Wells MD [address] [place] [address] [phone] [facility] Otolaryngology (ENT) Start: 01-02-2025 End: 01-02-2025 ambulatory 01/02/2025 1:00 PM EST [facility] Speech ENT [address] [place] [address] [phone] Arely Bates, CCC-WEDGER [address] [place] [address] [phone] [facility] Speech ENT Start: 11-26-2024 Annual wellness visit Annual Wellness Visit (G0438) [facility] Start: 11-03-2024 End: 11-03-2024 Patient encounter procedure 11/03/2024 10:30 AM EST Appointment [facility] Oncology Medical [address] [place] [phone] [place] [address] [place] [address] [facility] Oncology Medical Start: 10-31-2024 End: 10-31-2024 ambulatory 10/31/2024 10:00 AM EST [facility] [address] [place] [address] Arely Bates, CCC-WEDGER [address] [place] [address] [facility] Start: 10-31-2024 End: 10-31-2024 Patient encounter procedure 10/31/2024 9:15 AM EST Office Visit [facility] Otolaryngology (ENT) [address] [place] [address] 16880 Phillip Wells MD [address] [place] [phone] [facility] Start: 10-28-2024 End: 10-28-2024 ambulatory 10/28/2024 9:00 AM EST [facility] [address] [place] [phone] Farida De Luna, CCC-WEDGER [address] [place] [phone] [facility] Speech ENT Start: 10-28-2024 End: 10-28-2024 Patient encounter procedure 10/28/2024 8:45 AM EST Office Visit [facility] Otolaryngology (ENT) [address] [place] [phone] Phillip Wells MD [address] [place] [address] [phone] [facility] Otolaryngology (ENT) Start: 10-13-2024 End: 10-13-2024 Admission to same day surgery center 10/13/2024 12:05 PM EST - 10/13/2024 3:35 PM EST Surgery [facility] Main OR [address] [place] [phone] Phillip Wells MD [address] [place] [address] 238[address] LARYNGOSCOPY, DIRECT [facility] Main OR Comment on above: LARYNGOSCOPY, DIRECT Start: 10-13-2024 End: 10-13-2024 DISSECTION, RADICAL NECK, MODIFIED DISSECTION, RADICAL NECK, MODIFIED Routine scheduled 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 10/13/2024 12:05 PM EST [facility] Start: 10-13-2024 End: 10-13-2024 GLOSSECTOMY, PARTIAL GLOSSECTOMY, PARTIAL Routine scheduled 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 10/13/2024 12:05 PM EST [facility] Start: 10-13-2024 End: 10-13-2024 LARYNGOSCOPY, DIRECT LARYNGOSCOPY, DIRECT Routine scheduled 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 10/13/2024 12:05 PM EST [facility] Start: 10-13-2024 Subsequent hospital visit by physician 10/13/2024 12:05 PM EST Hospital Encounter [facility] Main OR [facility] [employer] [place] [phone] Phillip Wells MD [address] [place] [address] [facility] Main OR Start: 10-13-2024 End: 10-13-2024 DISSECTION, RADICAL NECK, MODIFIED DISSECTION, RADICAL NECK, MODIFIED Routine scheduled 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 10/13/2024 9:49 AM EST [facility] Start: 10-13-2024 End: 10-13-2024 GLOSSECTOMY, PARTIAL GLOSSECTOMY, PARTIAL Routine scheduled 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 10/13/2024 9:49 AM EST [facility] Start: 10-13-2024 End: 10-13-2024 LARYNGOSCOPY, DIRECT LARYNGOSCOPY, DIRECT Routine scheduled 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 10/13/2024 9:49 AM EST [facility] Start: 10-13-2024 End: 10-13-2024 Admission to same day surgery center 10/13/2024 7:30 AM EST - 10/13/2024 11:00 AM EST Surgery [facility] OR [address] [place] [address] Phillip Wells MD [address] [place] [phone] LARYNGOSCOPY, DIRECT [facility] Main OR Comment on above: LARYNGOSCOPY, DIRECT Start: 10-13-2024 End: 10-13-2024 DISSECTION, RADICAL NECK, MODIFIED DISSECTION, RADICAL NECK, MODIFIED Routine scheduled 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 10/13/2024 7:30 AM EST [facility] Start: 10-13-2024 End: 10-13-2024 GLOSSECTOMY, PARTIAL GLOSSECTOMY, PARTIAL Routine scheduled 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 10/13/2024 7:30 AM EST [facility] Start: 10-13-2024 End: 10-13-2024 LARYNGOSCOPY, DIRECT LARYNGOSCOPY, DIRECT Routine scheduled 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 10/13/2024 7:30 AM EST [facility] Start: 10-13-2024 Subsequent hospital visit by physician 10/13/2024 7:30 AM EST Hospital Encounter [facility] Main OR [address] [place] [phone] Phillip Wells MD [address] [place] [id number] [facility] Main OR Start: 10-07-2024 End: 10-07-2025 DOWNLOAD [facility] TO [facility] Imaging Routine 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) Expected: 10/07/2024, Expires: 10/07/2025 [employer] Work Phone: Comment on above: Expected: 10/07/2024, Expires: Start: 10-01-2024 Subsequent hospital visit by physician 10/01/2024 3:00 PM EST Hospital [facility] [address] [place] [phone] [place] [phone] [facility] Oncology Medical Start: 10-01-2024 End: 10-01-2024 Patient encounter procedure [facility] Pre-Admission Testing Start: 10-01-2024 End: 10-01-2024 ambulatory 10/01/2024 1:00 PM [facility] Health [facility] Speech ENT [address], [place] [phone] Madelyn Lackey CCC-WEDGER [address] [facility] [place] [address] [facility] Speech ENT Start: 09-26-2024 End: 09-26-2024 Patient encounter procedure 09/26/2024 9:15 AM EDT Office Visit [facility] Otolaryngology (ENT) [address] [place] [phone] Phillip Wells MD [address] [place] [address] [facility] Otolaryngology (ENT) Start: 09-17-2024 End: 09-17-2025 DOWNLOAD [facility] TO [facility] DOWNLOAD [facility] TO [facility] Imaging Routine Tongue cancer (HCC) Expected: 09/17/2024, Expires: 09/17/2025 [facility] Work Phone: Comment on above: Expected: 09/17/2024, Expires: Start: 07-27-2024 COVID-19 Vaccine ( season) COVID-19 Vaccine ( season) [facility] Start: 07-27-2024 Influenza vaccination Influenza Vaccine (#1) [facility] Start: 11-26-2023 Welcome to Medicare Visit (G0402) Welcome to Medicare Visit (G0402) [facility] Start: 01-04-2023 Procedure Education [facility] Work Phone: Start: 01-04-2023 Provider Instructions for Treatment [facility] Work Phone: Start: 01-04-2023 Hemoglobin glycosylated a1c [facility]; [facility] Work Phone: Start: 01-04-2023 Glucose quantitative blood xcpt reagent strip [facility]; [facility] Work Phone: Start: 09-22-2022 Patient Education [facility]; [facility] Work Phone: Start: 09-22-2022 Procedure Education [facility] Work Phone: Start: 09-22-2022 Provider Instructions for Treatment [facility] Work Phone: Start: 11-30-2021 Procedure Education [facility]; [facility] Work Phone: Start: 11-30-2021 Provider Instructions for Treatment [facility] Work Phone: Start: 11-29-2021 Iaadiadoo influenza [facility]; [facility] Work Phone: Start: 06-14-2020 Provider Instructions for Treatment [facility] Work Phone: Start: 04-21-2020 Procedure Education [facility] Work Phone: Start: 04-21-2020 Provider Instructions for Treatment [facility] Work Phone: Start: 04-21-2020 Cobalamin (Vitamin B12) [Mass/Vol] VITAMIN B-12 (CYANOCOBALAMIN) (61888) [facility] Work Phone: Start: 04-21-2020 Cyanocobalamin vitamin b-12 [facility]; [facility] Work Phone: Start: 02-23-2020 Hepatic function panel [facility] Work Phone: Start: 12-19-2019 Procedure Education [facility] Work Phone: Start: 12-19-2019 Provider Instructions for Treatment [facility] Work Phone: Start: 10-09-2019 Provider Instructions for Treatment [facility] Work Phone: Start: 10-09-2019 25 hydroxy includes fractions if performed [facility] Work Phone: Start: 10-09-2019 Lipoprotein blood lokesh numbers & subclasses [facility] Work Phone: Start: 09-24-2019 Assay of folic acid serum FOLIC ACID SERUM (95695) [facility] Work Phone: Start: 09-24-2019 INR Coag (Bld) [Relative time] Soluble Transferrin Receptor (82368) [facility] Work Phone: Start: 09-24-2019 Protein electrophoretic fractj&quantj serum SPEP (32631) [facility] Work Phone: Start: 09-24-2019 Protein total xcpt refractometry urine UPEP (90625) [facility] Work Phone: Start: 09-24-2019 Blood occult fecal hgb deter ia qual feces 1-3 FECAL OCCULT- Tubes sent home (76598) [facility] Work Phone: Start: 09-24-2019 Cobalamin (Vitamin B12) [Mass/Vol] VITAMIN B-12 (CYANOCOBALAMIN) (60838) [facility] Work Phone: Start: 09-24-2019 Blood count reticulocyte automated [facility] Work Phone: Start: 09-24-2019 Lactate dehydrogenase ldh LDH (LD) (LACTATE DEHYDROGENASE) (02467) [facility] Work Phone: Start: 09-24-2019 Iron binding capacity IRON BINDING CAPACITY (TIBC) (57271) [facility] Work Phone: Start: 09-24-2019 Assay of iron [facility] Work Phone: Start: 09-24-2019 Iron [Mass/Vol] IRON (57803) [facility] Work Phone: Start: 09-24-2019 Ferritin [Mass/Vol] FERRITIN (37734) [facility] Work Phone: Start: 09-24-2019 Assay of haptoglobin quantitative HAPTOGLOBIN (17820) [facility] Work Phone: Start: 09-24-2019 Blood count complete auto&auto difrntl wbc CBC, PLATELETS & AUT DIFF (76592) [facility] Work Phone: Start: 09-22-2019 Hepatic function panel HEPATIC FUNCTION PANEL (17530) [facility] Work Phone: Comment on above: fax to dr. bertin arguelles Start: 09-22-2019 Blood count complete automated CBC & PLATELETS (AUTO) (34759) [facility] Work Phone: Comment on above: fax to dr.shane arguelles Start: 09-22-2019 Basic metabolic panel calcium total METABOLIC PANEL, BASIC (07536) [facility] Work Phone: Comment on above: fax to Dr.Shane Arguelles Start: 05-08-2019 Procedure Education [facility] Work Phone: Start: 05-08-2019 Provider Instructions for Treatment [facility] Work Phone: Start: 03-19-2019 Protein mass conc NMR Profile (88423) [facility] Work Phone: Start: 03-19-2019 Hepatic function panel HEPATIC FUNCTION PANEL (03001) [facility] Work Phone: Start: 03-13-2019 Procedure Education [facility] Work Phone: Start: 03-13-2019 Provider Instructions for Treatment [facility] Work Phone: Start: 09-13-2018 Lipoprotein blood lokseh numbers & subclasses [facility]; [facility] Work Phone: Start: 09-13-2018 Protein mass conc LIPOPROTEIN, BLD, BY NMR (11416) [facility] Work Phone: Start: 09-13-2018 Hepatic function panel [facility] Work Phone: Start: 09-12-2018 Procedure Education [facility] Work Phone: Start: 09-12-2018 Provider Instructions for Treatment [facility] Work Phone: Start: 09-12-2018 Urnls dip stick/tablet reagent auto microscopy [facility] Work Phone: Start: 09-12-2018 Urine albumin quantitative [facility] Work Phone: Start: 08-22-2018 Provider Instructions for Treatment [facility] Work Phone: Start: 04-26-2018 Provider Instructions for Treatment [facility] Work Phone: Start: 04-19-2018 Provider Instructions for Treatment [facility] Work Phone: Start: 10-12-2017 End: 10-12-2017 Appointment Appointment [facility] [employer] Work Phone: Start: 10-09-2017 End: 10-09-2017 Appointment Appointment [facility] [employer] Work Phone: Start: 10-05-2017 End: 10-05-2017 Appointment Appointment [facility] Work Phone: Start: 09-27-2017 End: 09-27-2017 Duplex scan extracranial art compl bi study Carotid Duplex Bilateral - Routine [facility] Work Phone: Start: 09-27-2017 End: 09-27-2017 Appointment Appointment [facility] Work Phone: Start: 06-27-2017 Provider Instructions for Treatment [facility] Work Phone: Start: 06-27-2017 Urnls dip stick/tablet reagent auto microscopy [facility] Work Phone: Start: 06-27-2017 Urine albumin quantitative [facility] Work Phone: Start: 2017 RSV Vaccine (75+ years) RSV Vaccine (75+ years) [facility] Start: 2017 RSV vaccine (adult) (1 - 1-dose 75+ series) RSV vaccine (adult) (1 - 1-dose 75+ series) [facility] Start: 04-26-2017 Procedure Education [facility] Work Phone: Start: 04-26-2017 Provider Instructions for Treatment [facility] Work Phone: Start: 03-02-2017 Provider Instructions for Treatment [facility] Work Phone: Start: 02-21-2017 End: 02-21-2017 Follow Up Appt 6 months Follow Up Appt 6 months [facility] [employer] Work Phone: Start: 02-21-2017 End: 02-21-2017 PFM PFM [facility] [employer] Work Phone: Start: 02-01-2017 Provider Instructions for Treatment [facility] Work Phone: Start: 01-25-2017 Procedure Education [facility] Work Phone: Start: 01-25-2017 Provider Instructions for Treatment [facility] Work Phone: Start: 01-04-2017 End: 01-16-2017 Chest x-ray X-Ray, Chest, PA & Lateral [facility] [employer] Work Phone: Start: 01-04-2017 End: 01-04-2017 Ecg routine ecg w/least 12 lds w/i&r EKG (In office) [facility] [employer] Work Phone: Start: 01-04-2017 End: 01-04-2017 Follow Up Appt 6 weeks Follow Up Appt 6 weeks [facility] [employer] Work Phone: Start: 01-04-2017 End: 01-19-2017 Follow Up BP Check Follow Up BP Check [facility] [employer] Work Phone: Start: 01-04-2017 End: 01-04-2017 MMM MMM [facility] [employer] Work Phone: Start: 01-04-2017 End: 01-04-2017 Nuclear stress test -Lexiscan Nuclear stress test -Lexiscan [facility] [employer] Work Phone: Start: 01-04-2017 End: 01-04-2017 Renal doppler Renal doppler [facility] [employer] Work Phone: Start: 12-28-2016 Procedure Education [facility] Work Phone: Start: 12-28-2016 Provider Instructions for Treatment [facility] Work Phone: Start: 12-28-2016 Urine albumin quantitative [facility] Work Phone: Start: 12-28-2016 Cobalamin (Vitamin B12) mass conc VITAMIN B12 AND FOLATES (95538) [facility] Work Phone: Start: 12-28-2016 Cyanocobalamin vitamin b-12 [facility]; [facility] Work Phone: Start: 12-28-2016 25 hydroxy includes fractions if performed [facility] Work Phone: Start: 12-28-2016 Lipid panel [facility] Work Phone: Start: 12-28-2016 Blood count complete auto&auto difrntl wbc [facility] Work Phone: Start: 12-14-2016 Procedure Education [facility] Work Phone: Start: 12-14-2016 Assay of thyroid stimulating hormone tsh [facility]; [facility] Work Phone: Start: 12-14-2016 Thyrotropin Qn TSH (THYROID STIMULATING HORMONE) (37681) [facility] Work Phone: Start: 2007 Pneumococcal vaccination Pneumococcal Vaccine(s) (65+ yrs) (1 of 1 - PCV) [facility] Start: 2007 Screening for osteoporosis Bone Densitometry [facility] Start: 2002 Hepatitis B (HBV) Vaccine (optional start 60+ years) Hepatitis B (HBV) Vaccine (optional start 60+ years) [facility] Start: 1992 Pneumococcal vaccination Pneumococcal Vaccine(s) (50+ yrs) (1 of 1 - PCV) [facility] Start: 1992 Shingles (RZV) Vaccine (1 of 2) Shingles (RZV) Vaccine (1 of 2) [facility] Start: 1961 Hepatitis A (HAV) Vaccine (optional start 19+ years) Hepatitis A (HAV) Vaccine (optional start 19+ years) [facility] Start: 1960 Tdap Booster Tdap Booster [facility] Surgical pathology [facility] Work Phone: Comment on above: Release Upon Ordering for 1 Occurrences starting 10/13/2024, 1 completed Surgical pathology procedure [facility] Work Phone: Comment on above: Ordered: 03/11/2025 [facility] Work Phone: [facility] Work Phone: [facility] Work Phone: [facility] Work Phone: [facility] Work Phone: [facility] Work Phone: [facility] Work Phone: [facility] Work Phone: [facility] Work Phone: [facility] Work Phone[facility] Work Phone: [facility] Work Phone: [facility] Work Phone: [facility] Work Phone: [facility] Work Phone: [facility] Work Phone: [facility]; [facility] Work Phone: [facility]; [facility] Work Phone: [facility]; [facility] Work Phone: [facility]; [facility] Work Phone: [facility]; [facility] Work Phone: Immunizations Immunization Date Immunization Notes Care Provider [facility] 09-19-2016 Influenza virus vaccine [facility] 11-26-2012 pneumococcal polysaccharide vaccine, 23 valent [facility] Payers Date Payer Category Payer Self-pay [id number] 2023 Medicare AETNA MEDICARE P FFS AETNA MEDICARE VALENCIA/HMO/PFFS [id number] 2023-Present [phone] [address] [place] [address] Medicare [id number] 2023 Medicare (Managed Care) [employer] PFFS [id number] 2016 Private Health Insurance [facility] [id number] 1942 Unknown [id number] 2.16.840.1.159482.3.579.2. 716 1942 Unknown [id number] 2.16.840.1.998299.3.579.2. 732 1942 Unknown [id number] 2.16.840.1.879488.3.579.2. 732 1942 Unknown [id number] 2.16.840.1.860395.3.579.2. 732 1942 Unknown [id number] 2.16.840.1.984146.3.579.2. 732 1942 Unknown [id number] 2.16.840.1.803985.3.579.2. 732 1942 Unknown [id number] 2.16.840.1.577940.3.579.2. 732 1942 Unknown [id number] 2.16.840.1.112731.3.579.2. 732 1942 Unknown [id number] 2.840.1.040742.3.579.2. 73 1942 Unknown [id number] 2.840.1.429210.3.579.2. 73 1942 Unknown [id number] 2.840.1.194076.3.579.2. 73 1942 Unknown [id number] 2.840.1.412510.3.579.2. 73 1942 Unknown [id number] 2.840.1.904967.3.579.2. 73 1942 Unknown [id number] 2.84.1.276511.3.579.2. 73 1942 Unknown [id number] 2..1.515932.3.579.2. 1942 Unknown [id number] 2.0.1.508611.3.579.2. 732 Private Health Insurance [facility] Unknown Unknown [id number] 2..1.275433.3.579.2. 462 Unknown [id number] 2..1.206390.3.579.2. 462 Unknown [id number] ..1.304506.3.579.2. 462 Unknown [id number] .840.1.477467.3.579.2. 462 Unknown [id number] 2.840.1.310012.3.579.2. 462 Unknown [id number] 2.840.1.424513.3.579.2. 462 Unknown [id number] 2.840.1.253873.3.579.2. 462 Unknown [id number] 2.840.1.429677.3.579.2. 462 Unknown [id number] 2.84.1.236507.3.579.2. 462 Unknown [id number] 2.16.840.1.522192.3.579.2. 462 Unknown [id number] 2.16.840.1.967177.3.579.2. 462 Social History Date Type Detail Facility Exercise History: Moderate. [facility] Work Phone: Comment on above: 4 days per week - nh lks 1-11/27 to 2 miles at a time Start: 09-26-2024 End: 10-02-2024 Non Drinker/No Alcohol Use [facility] Work Phone: Exercise History: Exercise History: Compr [facility]; [facility] Work Phone: Comment on above: 4 days per week - nh [employer] 1-11/27 to 2 miles at a time Start: 11-30-2021 End: 01-21-2024 Tobacco smoking status NHIS Unknown if ever smoked [facility] Start: 12-25-2016 None [facility] Start: 12-25-2016 Alone [facility] Start: 12-27-2016 Non-smoker [facility] Start: 1940 Sex Assigned At Female [facility] Start: 1940 Sex assigned at [facility] Start: 09-26-2024 End: 10-02-2024 Gender identity Not on file [facility] Work Phone: Start: 06-06-2024 End: 09-26-2024 Tobacco smoking status NHIS Never smoked tobacco [facility] Start: 09-26-2024 Tobacco use and exposure Smoke less tobacco non-user [facility] Start: 10-01-2024 End: 10-14-2024 Alcoholic beverage intake Lifetime non-drinker (finding) [facility] How hard is it for y ou to pay for the very basics like food, housing, medical care, and heating Not very hard [facility] Work Phone: (I/We) worried whenick er (my/our) food would run out before (I/we) got money to buy more. Never true [facility] In the past 12 month s, has lack of transportation kept you from medical appointments or from getting medications? No [facility] In the past 12 month s, was there a time when you were not able to pay the mortgage or rent on time? No [facility] Start: 09-17-2024 Sex [facility] (finding[facility] Start: 10-14-2024 Details of drug misu se behavior Has never misused drugs (situation) [facility] Medical Equipment Procedure Code Equipment Code Equipment Origin al Text Equipment Identifier Dates CEMENT,BONE RALPH H 1/2 BATCH FDA Start: 03-05-2018 [place] ANATOMIC MENISCAL BEAR FDA Start: 03-05-2018 [place] MEDIAL TI B TRAY PARTIAL FDA Start: 03-05-2018 [place] STABLECUT BLADE FDA Start: 03-05-2018 [place] TWIN PEG FEM COMP (PART FDA Start: 03-05-2018 CEMENT,BONE RALPH H 1/2 BATCH FDA Start: 03-05-2018 [place] ANATOMIC MENISCAL BEAR FDA Start: 03-05-2018 [place] MEDIAL TI B TRAY PARTIAL FDA Start: 03-05-2018 [place] STABLECUT BLADE FDA Start: 03-05-2018 [place] TWIN PEG FEM COMP (PART FDA Start: 03-05-2018 CEMENT,BONE RAPLH H 1/2 BATCH FDA Start: 03-05-2018 [place] ANATOMIC MENISCAL BEAR FDA Start: 03-05-2018 [place] MEDIAL TI B TRAY PARTIAL FDA Start: 03-05-2018 [place] STABLECUT BLADE FDA Start: 03-05-2018 [place] TWIN PEG FEM COMP (PART FDA Start: 03-05-2018 CEMENT,BONE RALPH H 1/2 BATCH FDA Start: 03-05-2018 O[place]ORD ANATOMIC MENISCAL BEAR FDA Start: 03-05-2018 [place] MEDIAL TI B TRAY PARTIAL FDA Start: 03-05-2018 [place] STABLECUT BLADE FDA Start: 03-05-2018 [place] TWIN PEG FEM COMP (PART FDA Start: 03-05-2018 CEMENT,BONE RALPH H 1/2 BATCH FDA Start: 03-05-2018 O[place] ANATOMIC MENISCAL BEAR FDA Start: 03-05-2018 [place] MEDIAL TI B TRAY PARTIAL FDA Start: 03-05-2018 [place] STABLECUT BLADE FDA Start: 03-05-2018 [place] TWIN PEG FEM COMP (PART FDA Start: 03-05-2018 CEMENT,BONE RALPH H 1/2 BATCH FDA Start: 03-05-2018 O[place]ORD ANATOMIC MENISCAL BEAR FDA Start: 03-05-2018 [place] MEDIAL TI B TRAY PARTIAL FDA Start: 03-05-2018 [place] STABLECUT BLADE FDA Start: 03-05-2018 [place] TWIN PEG FEM COMP (PART FDA Start: 03-05-2018 CEMENT,BONE RALPH H 1/2 BATCH FDA Start: 03-05-2018 [place] ANATOMIC MENISCAL BEAR FDA Start: 03-05-2018 O[place] MEDIAL TI B TRAY PARTIAL FDA Start: 03-05-2018 [place] STABLECUT BLADE FDA Start: 03-05-2018 [place] TWIN PEG FEM COMP (PART FDA Start: 03-05-2018 CEMENT,BONE RALPH H 1/2 BATCH FDA Start: 03-05-2018 O[place] ANATOMIC MENISCAL BEAR FDA Start: 03-05-2018 O[place] MEDIAL TI B TRAY PARTIAL FDA Start: 03-05-2018 O[place]ORD STABLECUT BLADE FDA Start: 03-05-2018 [place] TWIN PEG FEM COMP (PART FDA Start: 03-05-2018 CEMENT,BONE RALPH H 1/2 BATCH FDA Start: 03-05-2018 OX[place]ORD ANATOMIC MENISCAL BEAR FDA Start: 03-05-2018 O[place]ORD MEDIAL TI B TRAY PARTIAL FDA Start: 03-05-2018 O[place]ORD STABLECUT BLADE FDA Start: 03-05-2018 O[place] TWIN PEG FEM COMP (PART FDA Start: 03-05-2018 CEMENT,BONE RALPH H 1/2 BATCH FDA Start: 03-05-2018 OXFORD ANATOMIC MENISCAL BEAR FDA Start: 03-05-2018 O[place] MEDIAL TI B TRAY PARTIAL FDA Start: 03-05-2018 O[place]ORD STABLECUT BLADE FDA Start: 03-05-2018 O[place] TWIN PEG FEM COMP (PART FDA Start: 03-05-2018 CEMENT,BONE RALPH H 1/2 BATCH FDA Start: 03-05-2018 OX[place]ORD ANATOMIC MENISCAL BEAR FDA Start: 03-05-2018 OXFORD MEDIAL TI B TRAY PARTIAL FDA Start: 03-05-2018 O[place]ORD STABLECUT BLADE FDA Start: 03-05-2018 O[place] TWIN PEG FEM COMP (PART FDA Start: 03-05-2018 Functional Status Date Assessment Result Facility 05-08-2019 LP-IR Score <25 [facility] Work Phone: Comment on above: INSULIN RESISTANCE Nayeli KUHN <--Insulin Sensitive Insulin Resistant--> Percentile in Reference PopulationInsulin Resistance ScoreLP-IR Score Low 25th 50th 75th High <27 27 45 63 >63LP-IR Score is inaccurate if patient is non-fasting. .The LP-IR score is a laboratory developed index that has beenassociated with insulin resistance and diabetes risk and should beused as one component of a physician's clinical assessment. TheLP-IR score listed above has not been cleared by the Food andDrug Administration. PATIENT WAS FASTINGP ERFORMED BY: Nourish [address] [id number] BY: [employer] [id number] [facility] [id number] 03-13-2019 LP-IR Score <25 [facility] Work Phone: Comment on above: INSULIN RESISTANCE Nayeli KUHN <--Insulin Sensitive Insulin Resistant--> Percentile in Reference PopulationInsulin Resistance ScoreLP-IR Score Low 25th 50th 75th High <27 27 45 63 >63LP-IR Score is inaccurate if patient is non-fasting. .The LP-IR score is a laboratory developed index that has beenassociated with insulin resistance and diabetes risk and should beused as one component of a physician's clinical assessment. TheLP-IR score listed above has not been cleared by the [place] Food andDrug Administration. PATIENT WAS FASTINGP ERFORMED BY: [email or web address] [facility] [id number] BY: [employer] [id number] [facility] [id number] Clinical Notes 09-17-2024 to 05-22-2025 Princess Nayeli Ceron MA - 05/22/2025 10:07 AM Phillip Santamaria MD - 05/22/2025 10:00 AM EDTTelephone Encounter - Phillip Wells MD - 03/18/2025 6:00 PM EDTPatient InstructionsPatient Instructions Note Date & Type Note Facility 05-22-2025 History of Present illness Narrative Follow Patient was identified by name and date of . Pharmacy updated Vital signs taken Patient in exam room ready for MD. Princess Ceron., MTA Images from the original note were not included. OTOLARYNGOLOGY - HEAD & NECK SURGERY CLINIC NOTE CHIEF COMPLAINT: No chief complaint on file. 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 Fraser). Now status post left partial glossectomy with [...] and neck standpoint. She does report some codg-ag-xwggcqcn pain and soreness from the prior biopsy [...] January. Recently s/p biopsy with Dr. Arguelles (family resource management specialist) c/w with invasive SCCa. She reports hx [...] drink alcohol and does not use drugs. Medications/Allergies/Immunization s: Her current medication(s) include: @CMEDLISTP@ Allergies: Amlodipine [...] at 1601 ED 10/13/24 Final Diagnosis A. Tongue, Left partial glossectomy MINUTE FOCUS OF RESIDUAL WELL DIFFERENTIATED MICROINVASIVE [...] lateral tongue SCCa s/p outside biopsy (Dr. Fraser). Now status post left partial glossectomy with [...] in 2 months or sooner as needed Phillip Wells MD Otolaryngology - Head and Neck Surgery [facility] Pager: [phone] documented in this encounter [facility] 03-18-2025 Telephone encounter Note Brief ENT Telephone Note Called patient to discuss recent biopsy results, which showed Squamous mucosa with mild dysplasia and parakeratosis. Deeper levels are examined.. All questions answered and pt verbalized understanding of the plan with follow up on 05/22/25 Phillip Wells MD Otolaryngology - Head and Neck Surgery [facility] Pager: [phone] [facility] 03-18-2025 Miscellaneous Notes Brief ENT Telephone Note Called patient to discuss recent biopsy results, which showed Squamous mucosa with mild dysplasia and parakeratosis. Deeper levels are examined.. All questions answered and pt verbalized understanding of the plan with follow up on 05/22/25 Phillip Wells MD Otolaryngology - Head and Neck Surgery [facility] Pager: [phone] documented in this encounter [facility] 03-11-2025 Note Addended by: Aysha WELLS on: 03/11/2025 11:51 AM Modules accepted: Orders [facility] 03-11-2025 Note Addended by: Aysha WELLS on: 03/11/2025 11:51 AM Modules accepted: Orders [facility] 03-11-2025 Note Addended by: Aysha WELLS on: 03/11/2025 11:51 AM Modules accepted: Orders [facility] 03-11-2025 Note Addended by: Aysha WELLS on: 03/11/2025 11:51 AM Modules accepted: Orders [facility] 03-11-2025 Miscellaneous Notes Addended by: PHILLIP WELLS on: 03/11/2025 11:51 AM Modules accepted: Orders documented in this encounter [facility] 03-11-2025 Instructions Pelon Palacios RN - 03/11/2025 10:55 AM EDT For pain you can take Tylenol and Ibuprofen. For bad pain you can alternate these every 3 hours. Do not take additional Tylenol if you are taking Excedrine. Example of alternating Tylenol (Acetaminophen) and Ibuprofen: 12pm: Tylenol 3pm: Ibuprofen 6pm: Tylenol 9pm: Ibuprofen documented in this encounter [facility] 03-11-2025 Instructions Pelon Palacios RN - 03/11/2025 10:55 AM EDT For pain you can take Tylenol and Ibuprofen. For bad pain you can alternate these every 3 hours. Do not take additional Tylenol if you are taking Excedrine. Example of alternating Tylenol (Acetaminophen) and Ibuprofen: 12pm: Tylenol 3pm: Ibuprofen 6pm: Tylenol 9pm: Ibuprofen documented in this encounter [facility] 03-11-2025 Note TIME OUT A TIME OUT was performed prior to the procedure using active communication to verify: Correct patient: Yes Correct Procedure/site: Yes KTP laser excision of oral lesion and punch biopsy Pt tolerated procedure well and without incident. [email or web address] History of Present illness Narrative TIME OUT A TIME OUT was performed prior to the procedure using active communication to verify: Correct patient: Yes Correct Procedure/site: Yes KTP laser excision of oral lesion and punch biopsy Pt tolerated procedure well and without incident. Images from the original note were not included. 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 Fraser). Now status post left partial glossectomy with [...] January. Recently s/p biopsy with Dr. Arguelles (family resource management specialist) c/w with invasive SCCa. She reports hx [...] drink alcohol and does not use drugs. Medications/Allergies/Immunization s: Her current medication(s) include: @CMEDLISTP@ Allergies: Amlodipine [...] Laser treatment of left oral cavity, CPT 39482 Pre-procedure Dx: Oral cavity leukoplakia History of prior left lateral tongue SCCa s/p partial glossectomy with primary closure Post-procedure Dx: Same SURGEON: Phillip Wells MD AUTOMATIC GRINDING MACHINE OPERATOR: None Procedure in Detail: Patient seated in [...] Ambulatory Pathologic Review: 10/13/24 Final Diagnosis A. Tongue, Left partial glossectomy MINUTE FOCUS OF RESIDUAL WELL DIFFERENTIATED MICROINVASIVE [...] lateral tongue SCCa s/p outside biopsy (Dr. Fraser). Now status post left partial glossectomy with [...] call patient with path results - appreciate WEDGER evaluation and recommendations -tentative plan for CT neck at 1 year postop or sooner as needed -okay to continue lichen planus medications prn -recommend close follow up with me in 2 months or sooner as needed Phillip Wells MD Otolaryngology - Head and Neck Surgery [facility] Pager: [phone] Patient identfied by name and date of Pharmacy updated Vital signs taken Patent in exam room ready for MD documented in this encounter [facility] 03-11-2025 History of Present illness Narrative TIME OUT A TIME OUT was performed prior to the procedure using active communication to verify: Correct patient: Yes Correct Procedure/site: Yes KTP laser excision of oral lesion and punch biopsy Pt tolerated procedure well and without incident. Images from the original note were not included. 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 Fraser). Now status post left partial glossectomy with [...] January. Recently s/p biopsy with Dr. Arguelles (family resource management specialist) c/w with invasive SCCa. She reports hx [...] drink alcohol and does not use drugs. Medications/Allergies/Immunization s: Her current medication(s) include: @CMEDLISTP@ Allergies: Amlodipine [...] Laser treatment of left oral cavity, CPT 24442 Pre-procedure Dx: Oral cavity leukoplakia History of prior left lateral tongue SCCa s/p partial glossectomy with primary closure Post-procedure Dx: Same SURGEON: Phillip Wells MD AUTOMATIC GRINDING MACHINE OPERATOR: None Procedure in Detail: Patient seated in [...] Ambulatory Pathologic Review: 10/13/24 Final Diagnosis A. Tongue, Left partial glossectomy MINUTE FOCUS OF RESIDUAL WELL DIFFERENTIATED MICROINVASIVE [...] and have rendered the final diagnosis(es). at 1548 Radiologic Review: PET (09/23/24), personally reviewed Laboratory/Other Studies: N/a ASSESSMENT/PLAN: 84 yo F never smoker with hx of lichen planus and now with left lateral tongue SCCa s/p outside biopsy (Dr. Fraser). Now status post left partial glossectomy with [...] call patient with path results - appreciate WEDGER evaluation and recommendations -tentative plan for CT neck at 1 year postop or sooner as needed -okay to continue lichen planus medications prn -recommend close follow up with me in 2 months or sooner as needed Phillip Wells MD Otolaryngology - Head and Neck Surgery [facility] Pager: [phone] Patient identfied by name and date of Pharmacy updated Vital signs taken Patent in exam room ready for MD documented in this encounter [facility] 01-22-2025 Evaluation note Diagnosis Onset Date Resolution Nonrheumatic mitral valve regurgitation acute December 8:27am Essential hypertension chronic Fe bruary 2024 8:27am Hyperlipemia chronic December 8:27am [facility] Work Phone: 1(784) 823-484502-07-2025 Instructions* Patient Instructions* Pelon Palacios RN - 01/02/2025 3:02 PM EST [facility] [phone] documented in this [id number] History of Present illness Narrative* Phillip Wells MD - 01/02/2025 2:39 PM EST Images from the original note were not included. OTOLARYNGOLOGY - HEAD & NECK SURGERY CLINIC NOTE CHIEF COMPLAINT: Chief Complaint Patient presents with follow up: follow up: status post left partial glossectomy HPI: Omaira Oliver is a 84 year old female with PMH significant for hx of lichen planus for 10 yrswho presents today, 01/02/2025, at the [facility] for follow up for left oral tongue squamouscell carcinoma status post biopsy at outside hospital (Dr. Fraser). Now status post left partial glossectomy with primary closure on 10/13/2024, , pT1 Nx MX. Final path with negative margins and depth of invasion at most 2 mm. A discontinuous focus of mild dysplasia at the anterior margin Interval History (01/02/25) Overall doing well. Tolerating diet without concerns. Denies any significant speech or articulationissues. She has been using topical clobetasol for [...] January. Recently s/p biopsy with Dr. Arguelles (family resource management specialist) c/w with invasive SCCa. She reports hx of oral lesions related to lichen planus but those typically go away. Denies any pain today but intermittently in nature. Reports some difficulty eating spicy foods but otherwise denies dysphagia. Denies fevers, chills, unintentionalweight loss, night sweats, otalgia, sore throat, oral bleeding,dysphagia, odynophagia, voice changes, shortness of breath, hemoptysis [...] hypopharynx including indirect mirror exam as well asinspection and palpation of the face, parotid and [...] Good tongue mobility with no evidence of tetheri ng and slight deviation to the left. Adequate speech Airway is adequate. Pathologic Review: 10/13/24 Final Diagnosis A. Tongue, Left partial glossectomy MINUTE FOCUS OF RESIDUAL WELL DIFFERENTIATED MICROINVASIVE SQUAMOUS CELL CARCINOMA (At most 2 mm indepth and span of 2 mm) in a [...] lateral tongue SCCa s/p outside biopsy (Dr. Fraser). Now status post left partial glossectomy with [...] history, would favor more aggressive approach with biopsyand KTP laser excision. We discussed the risks benefits and alternatives and patient was in agreement -okay for soft diet; appreciate WEDGER evaluation and recommendations -tentative plan for CT neck at 1 year postop or sooner as needed -okay to continue lichen planus medications prn -recommend close follow up with me in 1-2 months for in office KTP laser excision. We will scheduled today Phillip Wells MD Otolaryngology - Head and Neck Surgery [facility] Pager: [phone] * Pascale Wang RN - 01/02/2025 1:44 PM EST Patient was identified by name and date of . Pt triaged: health history, vital signs, allergies, medications, preferred pharmacy, reason for visit and complaints reviewed. Pt appearing in good health, no signs/symptoms of current distress. Patient at risk for falls: yes Falls Risk protocol implemented: yes documented in this [id number] NoteHOME PROGRAM/EDUCATION: Diet Recommendation: Regular Diet and Thin Liquids Exercises: - eating and drinking different consistencies as desired - effortful swallow - tongue exercises - move tongue forward, yspt-da-iapc, up-down - tongue sweep around the teeth (upper, lower, inside, outside) Oral care: - clean mouth after each meal Dry mouth: - add sauce / moisture - alternate solid/liquids - take a sip of water with dry foods to help chewingThe [facility] 01-02-2025 Instructions* Patient Instructions* Arely Bates CCC-SLP - 01/02/2025 1:17 PM EST HOME PROGRAM/EDUCATION: Diet Recommendation: Regular Diet and Thin Liquids Exercises: - eating and drinking different consistencies as desired - effortful swallow - tongue exercises - move tongue forward, kagr-xe-sidx, up-down - tongue sweep around the teeth (upper, lower, inside, outside) Oral care: - clean mouth after each meal Dry mouth: - add sauce / moisture - alternate solid/liquids - take a sip of water with dry foods to help chewing documented in this [id number] History of Present illness Narrative* Arely Bates CCC-WEDGER - 01/02/2025 12:57 PM EST SPEECH LANGUAGE PATHOLOGY OUTPATIENT DISCHARGE NOTE Location: [facility] Patient identified by patient stating name and date of . Payor: [employer] MEDICARE PFFS / Plan: [employer] MEDICARE [place]/HMO/PFFS [...] OBJECTIVE: Short Term Goals: Patient will complete [id number] of effortful swallows to optimize oropharyngeal pressure in anticipation of dysphagia. --hasn't been doing very often lately --completes x3 independently, difficulty completing more d/t xerostomia --WEDGER provides education/recommendations to complete at beginning of meals with boluses for 1-2 months to ensure strength regained Patient will participate in further swallow, speech, voice, trismus, and/or lymphedema evaluation as deemed clinically appropriate by the treating clinician. Current diet: Breakfast: chilean muffin with jam Lunch: grilled cheese, soup/chili, vegetables Avoids: some meats, primarily for dietary reasons Performance Status Scale for Head and Neck Cancer Patients (PSS-HN) Normalcy of Diet 90- Full diet (liquid assist) Public Eating 75- No restrictions of place, but restricts diet when in public (eats anywhere, but may limit intake to less messy foods (e.g. liquids) Understandability of Speech 100- [...] may be age-related CN IX - Glossopharyngeal & CN X - Vagus; Motor: WFL CN [...] written and verbal HEP. PLAN: Continue POC Custodial Goals: 1. Patient will tolerate a PO diet without pulmonary compromise. HOME PROGRAM/EDUCATION: Diet Recommendation: Regular Diet and Thin Liquids Exercises: - eating and drinking different consistencies as desired - effortful swallow - tongue exercises - move tongue forward, oyxz-ut-gpdx, up-down - tongue sweep around the teeth (upper, lower, inside, outside) Oral care: - clean mouth after each meal Dry mouth: - add sauce / moisture - alternate solid/liquids - take a sip of water with dry foods to help chewing Arely Bates CCC-WEDGER Speech-Language Pathologist documented in this [id number] History of Present illness Narrative* Sherri Mercado, RD - 11/03/2024 10:30 AM EST Images from the original note were not included. Documentation: Mode: Telephone Patient Patient Work Phone: Patient Cell Preferred phone: [phone] Consent: I confirmed patient understanding of the risks and benefits of telehealth visits and obtained consent to proceed with the telehealth visit. 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 Wells Chief Complaint: I'm doing better Previous Goals Set/Progress 1. Aim to eat [...] PARTIAL Left 10/13/2024 Procedure: GLOSSECTOMY, PARTIAL; Surgeon: Phillip Wells MD; Location: PERIOPERATIVE SERVICES; Service: Otolaryngology LARYNGOSCOPY N/A 10/13/2024 Procedure: LARYNGOSCOPY, DIRECT; Surgeon: Phillip Wells MD; Location: PERIOPERATIVE SERVICES; Service: Otolaryngology is allergic to amitriptyline, cardizem [diltiazem], cortisone, hydrochlorothiazide, meloxicam, morphine, and myrbetriq [mirabegron]. Medication: Current Outpatient Medications: diphenhydrAMINE-aluminum & magnesium svxvoagqz-fhyynzghglt-ihhaxjdqf viscous, Take 10 mL by mouth 3 times a day., Disp: 473 mL, Rfl: 0 senna (SENOKOT) 8.6 MG tablet, Take 1 Tablet by mouth daily as needed for Constipation for up to 7 days., Disp: 7 Tablet, Rfl: 0 chlorhexidine (PERIDEX) 0.12 % oral solution, Swish and spit 15 mL by mouth 3 times a day., Disp: 473 mL, Rfl: 1 Niursaj-Jlqxsdpnirdqy-Gyqpprzx (EXCEDRIN ORAL), Take by mouth as needed., Disp: , Rfl: DICYCLOMINE HCL ORAL, Take by mouth as needed., Disp: , Rfl: amLODIPine (Norvasc) 5 MG tablet, Take 5 mg by mouth daily., Disp: , Rfl: Bromfenac Sodium 0.075 % SOLN, INSTILL 1 DROP IN RIGHT EYE DAILY. USE DAILY IN OPERATIVE EYE 3 DAYSPRIOR TO SURGERY AND DAILY AFTER SURGERY, Disp: [...] Biochemical Data/Medical testing/Procedures: No results found for: HBA1C Lipids (last 3 years, up to 8 [...] AST 14 Anthropometric Measurements: Weight: 131# Height: 61 BMI: 24.9 UBW: 130# BP Readings from Last 1 Encounters: 10/28/24 133/80 Weight Change Since Last Visit: N/A Weight history: Wt Readings from Last 10 Encounters: 10/13/24 131 lb (59.4 kg) 10/01/24 131 lb 8 oz (59.6 kg) 09/26/24 129 lb 12.8 oz (58.9 kg) Food/Nutrition-Related History: Appetite: better Supplements: Premier Protein varies % supplement intake: 100% Provides: varies GI Sx: None Urine: Yellow Dentition: Own Teeth Allergies/Intolerance: None 24 Hour Recall: B: chilean muffin (1), scrambled egg (1) Snack: none L: none Snack: none D: baked potato with cheese (1), broccoli (1/2 cup), turkey (1 piece) Snack: none Beverages: Premier Protein (2 bottles), water Nutrition Focused Physical Exam: Muscle loss: [place] region: not assessed Clavicle region: not assessed Scapula region: not assessed Hand: not assessed Anterior thigh: not assessed Posterior calf: not assessed Fat loss: Orbital region: not assessed Tricep/bicep region: not assessed Rib/back region: not assessed Edema: not assessed Estimated Needs: 0698-8213 kcal/d 30-35 kcal/kg 77-89 g pro/d 1.3-1.5 g pro/kg 5163-9771 mL/d fluid Assessment for Malnutrition: Not at risk for malnutrition 84 y/o F with PMHx of lichen planus. 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 Now s/p L partial glossectomy with primary closure 10/13. Pt reports she had lost ~10# in a week after surgery. Notes she lost a lot of muscle tone and was feeling very week. Since then, has gained ~5-6 pounds. 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 Appetite is good, endorses hunger at [...] protein shakes to help meet needs Evaluation: Patient/Retail Gift Card Merchandising verbalized understanding: Yes The patient appears to have good understanding of the instruction given. Referrals: None Total time spent with patient-15 minutes, of which 15 minutes was spent counseling. MNT Time: 1 unit Visit Time: 2 of 3 approved visits SOURAV Myrick, VALERIE, LD Pager [phone] documented in this [id number] History of Present illness Narrative* Jonh Lees - 10/28/2024 2:46 PM EST SPEECH LANGUAGE PATHOLOGY OUTPATIENT DAILY TREATMENT NOTE Location: [facility] Patient identified by patient stating name and date of . Payor: A[employer] MEDICARE PFFS / Plan: A[employer] MEDICARE [place]/HMO/PFFS / Product Type: Medicare Time In: 2:20pm Time Out: 2:43pm Duration: 23 minutes Session #: 01/05 SUBJECTIVE: Patient subjective/goals: Patient arrives on time for appointment accompanied by pyqwzcco-ot-vte. Patient reports overall improvements with swallowing and speech. Patient reports consuming softer solids such as mashed potatoes, sweet potatoes, and apple sauce Pain:no Scale (if yes): /10 Location: OBJECTIVE: Short Term Goals: Patient will complete 43w40whid of effortful swallows to optimize oropharyngeal pressure [...] to left, lip pucker slightly diminished on leftside CN IX - Glossopharyngeal & CN X - Vagus; Motor: WFL CN XI - Spinal Accessory; Motor: WFL CN XII - Hypoglossal; Motor: WFL ASSESSMENT: Patient seen for follow up session targeting swallow function and speech intelligibility. Patient appears to continue to heal and improve with safe swallowing function and speech intelligibility. Observed a very mild lisp that is not consistently present. Patient participated in trials of water, kerwin lesauce, and shortbread cookies. Patient appears to be [...] in agreement with plan. PLAN: Continue POC Tapper Supervisor Goals: 1. Patient will tolerate a PO diet without pulmonary compromise. HOME PROGRAM/EDUCATION: Diet Recommendation: Regular Diet and Thin Liquids Exercises: - eating and drinking different consistencies as desired Jonh Lees Catering Sales Manager Clinician I was present during the entire speech therapy session with patient. I directly supervised Jonh Lees and assisted her with the assessment, treatment, documentation and billing for this visit. I agree with her clinical decision making and have discussed the case with her. JOSHUA Saavedra, CASPER, CCC-WEDGER Speech-Language Pathologist Cosigned by Farida De Luna CCC-WEDGER at 10/28/2024 3:13 PM EST documented in this [id number] History of Present illness Narrative* Princess Nayeli Ceron MA - 10/28/2024 1:41 PM EST Patient was identified by name and date of . Pharmacy updated Vital signs taken Patient in exam room ready for MD. Princess Ceron., MTA * Phillip Wells MD - 10/28/2024 1:35 PM EST Images from the original note were not included. 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 Fraser). Now status post left partial glossectomy with [...] January. Recently s/p biopsy with Dr. Arguelles (family resource management specialist) c/w with invasive SCCa. She reports hx of oral lesions related to lichen planus but those typically go away. Denies any pain today but intermittently in nature. Reports some difficulty eating spicy foods but otherwise denies dysphagia. Denies fevers, chills, unintentionalweight loss, night sweats, otalgia, sore throat, oral bleeding,dysphagia, odynophagia, voice changes, shortness of breath, hemoptysis [...] hypopharynx including indirect mirror exam as well asinspection and palpation of the face, parotid and [...] adequate. Pathologic Review: 10/13/24 Final Diagnosis A. Tongue, Left partial glossectomy MINUTE FOCUS OF RESIDUAL WELL DIFFERENTIATED MICROINVASIVE SQUAMOUS CELL CARCINOMA (At most 2 mm indepth and span of 2 mm) in a [...] lateral tongue SCCa s/p outside biopsy (Dr. Fraser). Now status post left partial glossectomy with primary closure on 10/13/2024, , pT1 Nx MX. Final path with negative margins and depth of invasion at most 2 mm. A discontinuous focus of mild dysplasia at the anterior margin -reviewed the pathology findings length with the patient. -we will plan to discuss at our multidisciplinary head & neck tumor board Conference for consensus adjuvant recommendations -okay for soft diet; appreciate WEDGER evaluation and recommendations -tentative plan for CT neck at 1 year postop or sooner as needed -okay to resume lichen planus medications in 2 weeks -recommend close follow up with me every 2 months for the 1st year and then 3 months in the 2nd year but could consider transitioning to alternating between me and Dr. Fraser at [facility] [facility] Phillip Wells MD Otolaryngology - Head and Neck Surgery [facility] Pager: [phone] documented in this [id number] Telephone encounter Note* Telephone Encounter - Phillip Wells MD - 10/19/2024 4:57 PM EST Brief ENT Telephone Note Called patient to discuss recent pathology results on 10/17/24, which showed Final Diagnosis A. Tongue, Left partial glossectomy MINUTE FOCUS OF RESIDUAL WELL DIFFERENTIATED MICROINVASIVE SQUAMOUS CELL CARCINOMA (At most 2 mm indepth and span of 2 mm) in a [...] or surgery at this time based on thefinal pathology. Patient doing well overall. Pain improving and able to tolerate p.o.. Denies any fevers, chills, purulence or oral bleeding We will continue with scheduled appointment on 10/28/2024. All questions answered and pt verbalizedunderstanding of the plan. Phillip Wells MD Otolaryngology - Head and Neck Surgery [facility] Pager: [phone] [id number] Miscellaneous Notes* Telephone Encounter - Phillip Wells MD - 10/19/2024 4:57 PM EST Brief ENT Telephone Note Called patient to discuss recent pathology results on 10/17/24, which showed Final Diagnosis A. Tongue, Left partial glossectomy MINUTE FOCUS OF RESIDUAL WELL DIFFERENTIATED MICROINVASIVE SQUAMOUS CELL CARCINOMA (At most 2 mm indepth and span of 2 mm) in a [...] or surgery at this time based on thefinal pathology. Patient doing well overall. Pain improving and able to tolerate p.o.. Denies any fevers, chills, purulence or oral bleeding We will continue with scheduled appointment on 10/28/2024. All questions answered and pt verbalizedunderstanding of the plan. Phillip eWlls MD Otolaryngology - Head and Neck Surgery [facility] Pager: [phone] documented in this [id number] Telephone encounter Note* Telephone Encounter - Ashley Merrill - 10/14/2024 8:31 AM EST Omaira from [facility] in [place] called to verify pt information and to contact pt in regards toBMX solution. [id number] Miscellaneous Notes* Telephone Encounter - Ashley Merrill - 10/14/2024 8:31 AM EST Omaira from [facility] in [place] called to verify pt information and to contact pt in regards toBMX solution. * Telephone Encounter - Raquel Lee RN - 10/13/2024 6:00 PM EST What is the need: Situation: pts daughter reporting her mother did not receive the BMX mouth wash because the pharmacy was out of the medication Background: s/p tongue surgery Assessment: n/a Recommendation: pts daughter advised that this RN will call the compound pharmacy in [place] and call in the prescription. Pts daughter verbalized understanding. Raquel Lee RN documented in this [id number] Telephone encounter Note* Telephone Encounter - Raquel Lee RN - 10/13/2024 6:00 PM EST What is the need: Situation: pts daughter reporting her mother did not receive the BMX mouth wash because the pharmacy was out of the medication Background: s/p tongue surgery Assessment: n/a Recommendation: pts daughter advised that this RN will call the compound pharmacy in [place] and call in the prescription. Pts daughter verbalized understanding. Raquel Lee RN [id number] Miscellaneous Notes* Telephone Encounter - Raquel Lee RN - 10/13/2024 6:00 PM EST What is the need: Situation: pts daughter reporting her mother did not receive the BMX mouth wash because the pharmacy was out of the medication Background: s/p tongue surgery Assessment: n/a Recommendation: pts daughter advised that this RN will call the compound pharmacy in [place] and call in the prescription. Pts daughter verbalized understanding. Raquel Lee RN documented in this [id number] Hospital Discharge instructions* Discharge Instructions* Ana Maria Sanders RN - 10/13/2024 12:28 PM EST Images from the original note were not included. DISCHARGE INSTRUCTIONS Omaira Oliver [id number] The following is a brief overview of your hospitalization. Some of the information contained on this summary may be confidential. This information should be kept in your records and should be shared with your regular doctor. Admission Date:10/13/2024 9:20 AM Discharge Date: No discharge date for patient encounter. 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 Wells Treatment/wound care: You have an incision on the left side of your tongue. You should follow a soft diet for 2 weeks anduse Peridex mouthwash three times a day after each meal. Pain Control: Adequate management: Tramadol can be taken as prescribed as needed for breakthrough pain. Tramadol is a narcotic, which can induce constipation. Please take stool softeners when taking this medication to prevent constipation. Activity after Discharge: No heavy lifting, weight bearing as tolerated, no driving until mobility is returned to normal. Do not submerge wound(s) in standing water for 7 days after surgery (no tub bathing, swimming, or hot tubs). Do not lift, push or pull more than [address] for [address] or operate heavy machinery while taking narcotic pain medications as these medications can alter perception, impairjudgement, and slow reaction times. Diet: Soft diet x2 weeks Follow-Up: Future Appointments Date Time Provider Department Center 10/28/2024 8:45 AM Phillip Wells MD ENT [facility] 10/28/2024 9:00 AM Farida De Luna, GURMEET-WEDGER SPEECH ENT [facility] 11/03/2024 10:[address] [facility] PERIOPERATIVE DISCHARGE/HOME-GOING INSTRUCTIONS ANESTHESIA - GENERAL (ADULT) If a problem arises, you may contact your physician by calling [phone] and asking for the resident plant operations manager for Otolaryngology service. Special Care Needs: Activity: Rest at home today and tomorrow, then progress to your regular activities as tolerated. Diet: Clear liquids are best tolerated at first. If you are not nauseated, you can progress your diet to solid foods as tolerated. Possible post-operative precautions: Call you doctor or clinic for: 1. Signs of infection such as fever or chills. 2. Severe pain that in not relieved by Tylenol or your pain medicine prescription. 3. You may have a sore throat - it is usually gone in 1 to 2 days. Post-anesthesia safety: Possible side effects include drowsiness, dizziness, or inability to think clearly. For your safety, do not drive, drink alcoholic beverages, take any unprescribed medication or make any important decisions for 24 hours. A responsible adult should be with you for 24 hours. If no urine by 8:30 PM or you become very uncomfortable and can t urinate, call [phone] or come to the emergency room. A risk of anesthesia is post operative nausea and/or vomiting (PONV). Certain patients?are at higher risk than others. Talk to your anesthesiologist about the plan to minimize this risk. In?general, it is best to start with only ice chips or small sips of water, then progress to clear, non-alcoholic fluids. You do not have to eat if you do not feel like it; fluids?are the most important in?the first?24 hours after surgery. If you start to eat, try bananas, applesauce, plain toast, saltine crackers, or broth; avoid fried or fatty foods. Make sure to eat something about 15 minutes before takingany pain medications. Seek medical attention for any prolonged?PONV and signs of dehydration. The day after surgery, a nurse will call to check on you. However, if there are any questions or concerns, please call us at the number listed in the home going instructions. Falls Prevention Each year, 1 in every 3 adults over the age of 65 are treated for fall-related injuries. The risk of falling increases with each decade of life. The good news is, many falls are preventable. Here are some fall prevention tips: Exercise can increase strength and improve balance, making falls much less likely. For more informati on visit: http://[facility].org/services/vkxd-jdqiqu-mn-your-health/a-matte e-he-ebimqpo/ Some medications or combinations of medications can lead to side effects that cause falls. Have a doctor or pharmacist review all medications to help reduce the chance of risky side effects. Poor vision can lead to falls. Have your eyes checked every year. Ensure that your glasses are the correct strength. Eliminate hazards in your home by completing this home safety checklist. Remove things you can trip over from stairs and places you walk Install handrails and lights on all staircases. Remove small throw rugs or use double-sided tape to keep rugs from slipping. Keep items you use often in cabinets you can reach easily without using a step stool. Put grab bars inside and next to the tub or shower and next to your toilet.Use non-slip mats in thebathtub and on shower floors. Improve the lighting in your home. Hang lightweight curtains or shades to reduce glare. Wear shoes both inside and outside the house. Avoid going barefoot or wearing slippers. To lower the risk of hip fractures: Get adequate calcium and vitamin D, from food and/or supplements. Do weight bearing exercise. 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] * Lichen planus [L43.9] Procedures: Partial glossectomy Direct laryngoscopy Surgeon(s): Surgeon(s): Phillip Wells MD Staff: Scrub: Demarco Bellamy RN; Morelia Flanagan CST Programming Development Project Manager Nurse: Radha Raymond RN Nanny/Household Manager: Kellen Hannon MD; Farida Jacobo MD Anesthesia: General Anesthesiologist: Marc Long MD CAA: Jovan Jaramillo CAA Specimen(s): ID Type Source Tests Collected by Time Destination 1 : Left partial glossectomy, black stitch [place] anterior, white stitch [place] superior Tissue Tongue SPECIMEN FOR SURGICAL PATH Phillip Wells MD 10/13/2024 1114 Estimated Blood Loss: [...] the procedure and procedure sign-out. Signed by Farida Jacobo MD 10/13/2024 12:28 PM [id number] Surgery Surgical operation note* OP Note - Phillip Wells MD - 10/13/2024 10:52 AM EST Operative Report DATE OF SERVICE: 10/13/2024 PATIENT: Omaira GRAJEDAN: [id number] PREOPERATIVE DIAGNOSIS: 1. [id number] squamous cell carcinoma of the left lateral tongue 2. History of lichen planus POSTOPERATIVE DIAGNOSIS: 1. 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 History of lichen planus PROCEDURE: 1. Direct laryngoscopy, CPT 63651 2. Left partial glossectomy with primary closure, CPT 35145. SURGEON: Phillip Wells MD AUTOMATIC GRINDING MACHINE OPERATOR: Farida Jacobo MD ANESTHESIA: General ESTIMATED BLOOD LOSS: 10 mL COMPLICATIONS: None DISPOSITION: Stable to PACU INTRAOPERATIVE FINDINGS: 1. 2mm superficial tumor centered on the left lateral oral tongue with subtle nodularity likely at site of prior outside hospital biopsy; no discrete ulceration or endophytic component appreciated 2. Frozen section consistent with superficial invasive carcinoma, small foci with depth of invasion(DOI), approx 0.5 mm; all margins negative, approx 1 cm circumferentially and at deep margin 3. Wound closed primarily in anteroposterior direction SPECIMENS: 1. Left partial glossectomy with circumferential margins (frozen section with superficial invasive SCC versus carcinoma in situ, margins negative) INDICATIONS AND CONSENT Omaira Oliver is a 84 year old who presented to the [facility]ol[facility]ology [facility] Ne[facility] Surgical Oncology clinic with biopsy showing invasive SCC of left tongue lesion. It was recommended to undergo a partial glossectomy with possible neck dissection pending depth of invasion. After the risks, benefits, indications and alternatives were discussed, they elected to proceed. Risks discussed included butwere not limited to bleeding, infection, pain, need [...] carefully identified, palpated, and examined and an incisionwas designed around this that encompassed a 1cm margin. Mucosal incision were then made and dissection carried out into the tongue musculature, until we reached a 1 cm deep margin. This allowed for re lease of the specimen, which was examined and [...] made not to perform the neck dissection. The defect was then closed primarily with 3-0 vicryl [...] participated in the entirety of the case. 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] * Lichen planus [L43.9] Procedures: Partial glossectomy Direct laryngoscopy Surgeon(s): Surgeon(s): Phillip Wells MD Staff: Scrub: Demarco Bellamy RN; Morelia Flanagan, [place] Programming Development Project Manager Nurse: Radha Raymond RN Nanny/Household Manager: Kellen Hannon MD; Farida Jacobo MD Anesthesia: General Anesthesiologist: Marc Long MD CAA: Jovan Jaramillo CAA Specimen(s): ID Type Source Tests Collected by Time Destination 1 : Left partial glossectomy, black stitch valenzuela anterior, white stitch valenzuela superior Tissue Tongue SPECIMEN FOR SURGICAL PATH Phillip Wells MD 10/13/2024 1114 Estimated Blood Loss: [...] the procedure and procedure sign-out. Signed by Farida Jacobo MD 10/13/2024 12:28 PM * OP Note - Phillip Wells MD - 10/13/2024 10:52 AM EST Operative Report DATE OF SERVICE: 10/13/2024 PATIENT: Omaira Oliver PREOPERATIVE DIAGNOSIS: 1. [id number] squamous cell carcinoma of the left lateral tongue 2. History of lichen planus POSTOPERATIVE DIAGNOSIS: 1. 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 History of lichen planus PROCEDURE: 1. Direct laryngoscopy, CPT 56836 2. Left partial glossectomy with primary closure, CPT 24269. SURGEON: Phillip Wells MD AUTOMATIC GRINDING MACHINE OPERATOR: Farida Jacobo MD ANESTHESIA: General ESTIMATED BLOOD LOSS: 10 mL COMPLICATIONS: None DISPOSITION: Stable to PACU INTRAOPERATIVE FINDINGS: 1. 2mm superficial tumor centered on the left lateral oral tongue with subtle nodularity likely at site of prior outside hospital biopsy; no discrete ulceration or endophytic component appreciated 2. Frozen section consistent with superficial invasive carcinoma, small foci with depth of invasion(DOI), approx 0.5 mm; all margins negative, approx 1 cm circumferentially and at deep margin 3. Wound closed primarily in anteroposterior direction SPECIMENS: 1. Left partial glossectomy with circumferential margins (frozen section with superficial invasive SCC versus carcinoma in situ, margins negative) INDICATIONS AND CONSENT Omaira Oliver is a 84 year old who presented to the Otolaryngology Head & Neck Surgical Oncology clinic with biopsy showing invasive SCC of left tongue lesion. It was recommended to undergo a partial glossectomy with possible neck dissection pending depth of invasion. After the risks, benefits, indications and alternatives were discussed, they elected to proceed. Risks discussed included butwere not limited to bleeding, infection, pain, need [...] carefully identified, palpated, and examined and an incisionwas designed around this that encompassed a 1cm margin. Mucosal incision were then made and dissection carried out into the tongue musculature, until we reached a 1 cm deep margin. This allowed for re lease of the specimen, which was examined and [...] made not to perform the neck dissection. The defect was then closed primarily with 3-0 vicryl [...] participated in the entirety of the case. * Blood Attestation - Marc Long MD - 10/13/2024 9:57 AM EST Blood Attestation: ATTESTATION OF INFORMED CONSENT FOR BLOOD: The transfusion of blood and/or blood components were discussed with the patient and/or legal retail service representative. The risks, benefits and alternatives were reviewed. Questions regarding blood transfusions were answered. The patient /or the patient s legal retail service representative agree with the plan for transfusion of blood and/or blood components. documented in this [id number] Progress note* Blood Attestation - Marc Long MD - 10/13/2024 9:57 AM EST Blood Attestation: ATTESTATION OF INFORMED CONSENT FOR BLOOD: The transfusion of blood and/or blood components were discussed with the patient and/or legal retail service representative. The risks, benefits and alternatives were reviewed. Questions regarding blood transfusions were answered. The patient /or the patient s legal retail service representative agree with the plan for transfusion of blood and/or blood components. [email or web address] Phone: 1(541) 186-440811-18-2024 History and physical note* Kellen Hannon MD - 10/13/2024 9:41 AM EST Images from the original note were not included. Surgical History and Physical [facility] Main OR [facility] [email or web address] [address] Name: Omaira Oliver : 1940 84 year old CSN: [id number] Attending: Phillip Wells MD Date of Admission: 10/13/2024 9:20 [...] Location: right arm) Pulse 70 Temp 97.7 F (36.5 C) (Oral) Resp 18 Ht 5' 1 (1.549 m) Wt 131 lb (59.4 kg) SpO2 98% BMI 24.75 kg/m ROS: Denies fever, chills, chest pain, SOB, [...] or any previous visit (from the past 07063 hours). 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 Plan: I have personally reviewed the patient's medical history and performed the physical examination below immediately before the procedure. Medications, allergies, and pertinent laboratory and diagnostictests were also reviewed at this time. Procedure is still indicated. Yes Seen an evaluated by Kellen Hannon MD. Discussed with attending Phillip Wells MD. Kellen Hannon MD 10/13/24 9:42 AM Cosigned by Phillip Wells MD at 10/13/2024 1:19 PM EST [employer] Work Phone: 1(275) 526-337311-18-2024 NoteSurgical History and Physical [employer] Main OR [facility] [employer] [place] [address] Name: Omaira Oliver : 1940 84 year old CSN: [id number] Attending: Phillip Wells MD Date of Admission: 10/13/2024 9:20 [...] (36.5 ???C) (Oral) Resp 18 Ht 5' 1 (1.549 m) Wt 131 lb (59.4 kg) [...] or any previous visit (from the past 14294 hours). BMP (last 3 years, up to [...] by Kellen Hannon MD. Discussed with attending Phillip Wells MD. Kellen Hannon MD 10/13/24 9:42 AMThe [employer] [id number] History and physical note* Kellen Hannon MD - 10/13/2024 9:41 AM EST Images from the original note were not included. Surgical History and Physical [employer] Main OR [facility] [employer] [place] [address] Name: Omaira Oliver : 1940 84 year old CSN: [id number] Attending: Phillip Wells MD Date of Admission: 10/13/2024 9:20 [...] Location: right arm) Pulse 70 Temp 97.7 F (36.5 C) (Oral) Resp 18 Ht 5' 1 (1.549 m) Wt 131 lb (59.4 kg) SpO2 98% BMI 24.75 kg/m ROS: Denies fever, chills, chest pain, SOB, [...] or any previous visit (from the past 90083 hours). 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 Plan: I have personally reviewed the patient's medical history and performed the physical examination below immediately before the procedure. Medications, allergies, and pertinent laboratory and diagnostictests were also reviewed at this time. Procedure is still indicated. Yes Seen an evaluated by Kellen Hannon MD. Discussed with attending Phillip Wells MD. Kellen Hannon MD 10/13/24 9:42 AM Cosigned by Phillip Wells MD at 10/13/2024 1:19 PM EST documented in this [id number] Note* Addendum Note - Pelon Palacios RN - 10/07/2024 9:48 AM ESTAddended by: PELON PALACIOS on: 10/07/2024 09:48 AM Modules accepted: Orders [id number] Miscellaneous Notes* Addendum Note - Pelon Palacios RN - 10/07/2024 9:48 AM ESTAddended by: PELON PALACIOS on: 10/07/2024 09:48 AM Modules accepted: Orders * Telephone Encounter - Pelon Palacios RN - 10/02/2024 3:59 PM EST Reached patient's daughter, who would like intermittent leave through the end of the year to be able to drive mother to appointments. Will fill out then attach via [employer] message. Also attempted to fax dental clearance for possible radiation therapy to Dr Omi Montoya, but fax failed multiple times. Attempted to reach office to obtain different fax number. Left message for them to call back with working fax number. Pelon Palacios RN * Telephone Encounter - Berna Desai - 10/02/2024 9:12 AM EST Dedra Varner received the FMLA and added to [employer] I did fill out the simple stuff, can you help with the clinical questions? Provider Section starts on page [address] Wells sign or I can catch him tomorrow here at Main. Thank you Please let me know if you need anything. documented in this [id number] Telephone encounter Note* Telephone Encounter - Pelon Palacios RN - 10/02/2024 3:59 PM EST Reached patient's daughter, who would like intermittent leave through the end of the year to be able to drive mother to appointments. Will fill out then attach via [employer] message. Also attempted to fax dental clearance for possible radiation therapy to Dr Omi Montoya, but fax failed multiple times. Attempted to reach office to obtain different fax number. Left message for them to call back with working fax number. Pelon Palacios RN [email or web address] Work Phone: [phone] Miscellaneous Notes* Telephone Encounter - Pelon Palacios RN - 10/02/2024 3:59 PM EST Reached patient's daughter, who would like intermittent leave through the end of the year to be able to drive mother to appointments. Will fill out then attach via [employer] message. Also attempted to fax dental clearance for possible radiation therapy to Dr Omi Montoya, but fax failed multiple times. Attempted to reach office to obtain different fax number. Left message for them to call back with working fax number. Pelon Palacios RN * Telephone Encounter - Berna Desai - 10/02/2024 9:12 AM EST Dedra Varner received the FMLA and added to [employer] I did fill out the simple stuff, can you help with the clinical questions? Provider Section starts on page [address] Wells sign or I can catch him tomorrow here at Main. Thank you Please let me know if you need anything. documented in this [id number] NoteSW placed outreach call to Pt following up on order received from Dr. [...] Pt on emotional support services provided by [facility], Pt declined referral. Pt denied having any needs. SW will remain available. HIPOLITO Vazquez [id number] [facility]11-07-2024 Telephone encounter Note* Telephone Encounter - Rocio Rosenberg LSW - 10/02/2024 1:56 PM EST CINTHIA placed outreach call to Pt following up on order received from Dr. [...] transportation Support: Pt has strong family support. CINTHIA educated Pt on emotional support services provided by [facility], Pt declined referral. Pt denied having any needs. SW will remain available. Rocio GERMAN, BUSINESS ANALYSIS SPECIALIST [id number] Miscellaneous Notes* Telephone Encounter - Rocio Rosenberg LSW - 10/02/2024 1:56 PM EST CINTHIA placed outreach call to Pt following up on order received from Dr. Wells regarding adjustment to illness. CINTHIA completed needs assessment with Pt: Housing: Pt [...] any needs. SW will remain available. Rocio GERMAN, BUSINESS ANALYSIS SPECIALIST [id number] documented in this [id number] Telephone encounter Note* Telephone Encounter - Berna Desai - 10/02/2024 9:12 AM EST Dedra Varner received the FMLA and added to [employer] I did fill out the simple stuff, can you help with the clinical questions? Provider Section starts on page [address] Wells sign or I can catch him tomorrow here at Main. Thank you Please let me know if you need anything. [id number] Instructions* Patient Instructions* Nakia Stafford APRN-CNP - 10/01/2024 2:53 PM EST On the morning of your surgery, please take only the following medications, with [...] for pain. Please hold all Vitamin E, Blaine 3, fish oil and herbal supplements for 1 week prior to surgery. Please use this CHECKLIST to prepare for your surgery/procedure: Assume that any lab or testing done during your Pre-admission testing appointment is within normal limits unless otherwise contacted. Expect a call from [employer] one business day prior to surgery for surgery arrival time and location. Please plan to restart your medications the day after surgery unless otherwise explicitly instructed. Please contact your surgeon s/proceduralist s office for any surgical or recovery types of questions. CANCELLING YOUR SURGERY/PROCEDURE: If you get a cold, are not feeling well, or become , please call your surgeon s office as soon as possible. Refer to your Preparing for Your Surgery/Procedure booklet or [email or web address] if you have questions. Contact the Pre-Admission Testing department at [phone] or your surgeon's office with any questions [...] bariatric, and endoscopy/colonoscopy patients should follow their surgeon s/proceduralist s instructions for clear fluids prior to surgery. Pediatric Patients (under the age of 1212 years old): Patients are not to have solid food for 8 hours prior to coming for surgery. Patients can have formula or non-human milk (skim, 2%, whole, [...] stay with you after surgery. Please call [facility] [email or web address] Work if you need transportation assistance or have concerns about going home [phone]. PEDIATRIC or ADOLESCENTS: Parents or a legal [...] of your surgery. Thank you for choosing [facility]; it is our pleasure to care [...] Directives (Living Will, Health Care Power of Prosthetic Assistant) please contact our Social Work Department at . documented in this [id number] History of Present illness Narrative* Nakia Stafford APRN-CNP - 10/01/2024 2:30 PM EST Images from the original note were not included. Pre-Admission Testing Consultation Omaira Oliver, [id number] 84 year old Female 10/01/2024 Consult placed to [facility] by Dr. Wells. [facility] Triage Risk Score Total Score: 0.02 0.01 Patient's last A1C greater than 8.0 0.01 Patient's last Platelet Count is less than 100. Omaira Oliver is scheduled for LARYNGOSCOPY, DIRECT, (Left) GLOSSECTOMY, PARTIAL, Possible left selective neck dissection on 10/13/2024 at [facility]. Planned extended recovery. Pre-Op diagnosis of: Pre-Op [...] on CPAP Dental Endo - negative ROS tank hoop bender (+) post-menopausal Comment: S/p hysterectomy Neuro/Psych - negative ROS Cardiovascular (+) hypertension, hyperlipidemia GI/Hepatic/Renal (+) gallbladder problem (s/p cholecystectomy) Heme/Other (+) anemia Other ROS: Tonsillectomy PREVIOUS ANESTHETIC COMPLICATIONS: no history of difficult intubation , adverse effects of anesthetic agents, or family history of anesthesia-related problems, nor malignant hyperthermia CURRENT MEDICATION LIST: Current Outpatient Medications Medication Sig Dispense Refill Qoqjces-Lzvylrsbltzpf-Yrjbcsup (EXCEDRIN ORAL) Take by mouth as needed. [...] facility-administered medications for this visit. HEIGHT: 5' 1 WEIGHT: Weight was 58.9 kg on 09/26/2024 BMI: 24.85 VITAL SIGNS: BP 142/80 Pulse 77 Temp 97.2 F (36.2 C) (Temporal) Resp 12 Ht 5' 1 (1.549 m) Wt 131 lb 8 oz (59.6 kg) SpO2 100% BMI 24.85 kg/m PAIN ASSESSMENT: Severity: 0 Location: N/A AIRWAY [...] planus [L43.9] LABS, TESTS, CONSULTS ORDERED: Orders & Meds Signed During This Encounter Basic Metabolic Panel Complete Blood Count Type And Screen Hepatic Function Panel Confirmation ABO/Rh Partial Thromboplastin Time Prothrombin Time & INR Hyzxnnp-Itemppufcfcty-Uoseaqgk (EXCEDRIN ORAL) DICYCLOMINE HCL ORAL EKG 12 [...] ECG No previous ECGs available Confirmed by BRAD ZUNIGA ([id number]) on 10/02/2024 3:01:32 PM ECHO: Echocardiogram date: [...] Interviewer signature: REGINALD Mcghee 2:47 PM 10/01/2024 documented in this [id number] NotePre-Admission Testing Consultation Omaira Oliver, [id number] 84 year old Female 10/01/2024 Consult placed to [facility] by Dr. Wells. [facility] Triage Risk Score Total Score: 0.02 0.01 Patient's last A1C greater than 8.0 0.01 Patient's last Platelet Count is less than 100. Omaira Oliver is scheduled for LARYNGOSCOPY, DIRECT, (Left) GLOSSECTOMY, PARTIAL, Possible left selective neck dissection on 10/13/2024 at [facility]. Planned extended recovery. Pre-Op diagnosis of: Pre-Op [...] on CPAP Dental Endo - negative ROS tank hoop bender (+) post-menopausal Comment: S/p hysterectomy Neuro/Psych - negative ROS Cardiovascular (+) hypertension, hyperlipidemia GI/Hepatic/Renal (+) gallbladder problem (s/p cholecystectomy) Heme/Other (+) anemia Other ROS: Tonsillectomy PREVIOUS ANESTHETIC COMPLICATIONS: no history of difficult intubation , adverse effects of anesthetic agents, or family history of anesthesia-related problems, nor malignant hyperthermia CURRENT MEDICATION LIST: Current Outpatient Medications Medication Sig Dispense Refill Orgzscu-Hkpomfcyhpbss-Yonvhkpg (EXCEDRIN ORAL) Take by mouth as needed. [...] facility-administered medications for this visit. HEIGHT: 5' 1 WEIGHT: Weight was 58.9 kg on 09/26/2024 BMI: 24.85 VITAL SIGNS: BP 142/80 Pulse 77 Temp 97.2 ???F (36.2 ???C) (Temporal) Resp 12 Ht 5' 1 (1.549 m) Wt 131 lb 8 oz [...] Partial Thromboplastin Time Prothrombin Time AND INR Mxzobeh-Hjzsqudgmwmqp-Rvnpribv (EXCEDRIN ORAL) DICYCLOMINE HCL ORAL EKG 12 [...] Ca 9.6 eGFR 77 Results for orders cary (more content not included)...[employer] 10-01-2024 NoteSPEECH LANGUAGE PATHOLOGY OUTPATIENT SWALLOW EVALUATION Location: ENT Clinic Patient was identified by patient stating name and date of . Time In: 0100pm Time Out: 0200pm Duration: 60 minutes Session #: 12/05 Payor: [facility]LY [facility] MEDICARE PFFS / Plan: [facility]LY [facility] MEDICARE [place]/HMO/PFFS / Product Type: Medicare Referring Provider: Dr. Wells Date of Onset: 09/26/2024 Speech Medical History: Patient referred for speech therapy evaluation given newly diagnosed head and neck cancer. 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 Current plan is for triple endoscopy, partial [...] on time for appointment accompanied by her xrwvekhs-vm-znt. Pain: denies Scale (if yes): n/a Location: [...] cheese, salad (lettuce, tomato, red pepper, avocado), chilean muffin with strawberry jam Liquid intake recall: [...] Glossopharyngeal AND CN X - Vagus; Motor: WF CN XI - Spinal Accessory; Motor: WF CN XII - Hypoglossal; Motor: WFL Flexible Endoscopic Evaluation of Swallowing (FEES) Location: [facility] ENT Clinic Reason for FEES: assess swallowing Pneumonia History: None Respiration: Room air Cognitive Status: Alert and Cooperative Previous VFSS/FEES: None Current Nutrition Avenue: PO diet Current Diet Consistencies: Regular Diet and Thin Liquids Flexible Endoscopic Evaluation of Swallowing (FEES) conducted by Madelyn Lackey M.S. CCC-WEDGER. The WEDGER verified that a FEES was the planned procedure for the day. The flexible endoscope was passed transnasal via right nare to evaluate the anatomy and physiology of swallowing. Pt tolerated the exam without difficulty. P.O. trials Potential PO trials include: Thin liquid, [place] thick, Honey thick, Puree, Mixed consistency and [...] ab/adduction of the TVFs/arytenoids Pharyngeal Squeeze (high ee) Present Anatomic findings All pharyngeal and laryngeal [...] Penetration w/o protective reflex Material enters the (more content not included)...[employer] 10-01-2024 History of Present illness Narrative* Madelyn Lackey CCC-WEDGER - 10/01/2024 12:52 PM EST SPEECH LANGUAGE PATHOLOGY OUTPATIENT SWALLOW EVALUATION Location: ENT Clinic Patient was identified by patient stating name and date of . Time In: 0100pm Time Out: 0200pm Duration: 60 minutes Session #: 12/05 Payor: T MEDICARE PFFS / Plan: AET MEDICARE [place]/HMO/PFFS / Product Type: Medicare Referring Provider: Dr. Wells Date of Onset: 09/26/2024 Speech Medical History: Patient referred for speech therapy evaluation given newly diagnosed head and neck cancer. Patient is an 84 yo female with hx of lichen planus and now with left lateral tongueSCCa s/p outside biopsy, tentatively staged as [id number]. Current plan is for triple endoscopy, partial glossectomy possible flap/graft but likley primary closure versus secondary intention pending final defect and possible selective neck dissection. Flexible fiberoptic nasopharyngolaryngoscopy 09/26/2024 Nasopharynx including Eustachian tubes & fossae of Rosenmuller was unremarkable. Oropharynx including base of tongue & vallecula was unremarkable. Hypopharynx & endolarynx including epiglottis & glottis were unremarkable. Airway was patent & vocal folds were mobile bilaterally. No lesions or masses appreciated. Prior Level of Functioning: Patient is independent. Patient's vision is aided, hearing and ambulation are unaided. SUBJECTIVE: Patient subjective/goals: Patient arrives on time for appointment accompanied by her hvxzfoys-ep-tlu. Pain: denies Scale (if yes): n/a Location: [...] cheese, salad (lettuce, tomato, red pepper, avocado), chilean muffin with strawberry jam Liquid intake recall: [...] - Facial; Motor:WFL CN IX - Glossopharyngeal & CN X - Vagus; Motor: WFL CN XI - Spinal Accessory; Motor: WFL CN XII - Hypoglossal; Motor: WFL Flexible Endoscopic Evaluation of Swallowing (FEES) Location: [facility] ENT Clinic Reason for FEES: assess swallowing Pneumonia History: None Respiration: Room air Cognitive Status: Alert and Cooperative Previous VFSS/FEES: None Current Nutrition Avenue: PO diet Current Diet Consistencies: Regular Diet and Thin Liquids Flexible Endoscopic Evaluation of Swallowing (FEES) conducted by Madelyn Lackey M.S. CCC-WEDGER. The WEDGER verified that a FEES was the planned procedure for the day. The flexible endoscope was passed transnasal via right nare to evaluate the anatomy and physiology of swallowing. Pt tolerated the exam without difficulty. P.O. trials Potential PO trials include: Thin liquid, [place] thick, Honey thick, Puree, Mixed consistency and regular texture solid, simulated pill (I.e. Tic Tac) *A small volume of green food coloring was mixed with all liquids and foods. Nasopharyngoscopic findings Velopharyngeal function WNL; Contact of velum to nasopharyngeal wall achieved Anatomic findings Unremarkable Pharyngoscopic & laryngoscopic findings Secretions WNL Color WNL Vocal fold motion Complete VF ab/adduction of the TVFs/arytenoids Pharyngeal Squeeze (high ee) Present Anatomic findings All pharyngeal and laryngeal structures appreciated, symmetric, and mobile bilaterally. Unremarkable. ASPIRATION-PENETRATION SCALE (APS) 1 No penetration or aspiration Airway protected by primary larynx reflex closure, seal, & squeeze 2 Penetration w/ protective reflex Material [...] immediate reflexive swallow) may be insufficient to clearthe larynx, or may not be triggered by [...] NOT successfully clear the aspirated material from thetracheal airway, OR does NOT stimulate a protective cough response APS Scale Swallow Initiation Epiglottic Inversion Pharyngeal Residual Other Comments IDDSI 0 - Thin Liquid: straw 1 Vallecula Complete inversion WFL-Complete pharyngeal clearance Completed trials of small sips via straw 2x and large gulps via straw 2x. IDDSI 2 - Mildly Thick Liquid ([place]): tsp, cup, straw Not indicated IDDSI 3 - Moderately Thick Liquid (Honey): tsp, cup, straw Not indicated IDDSI 4 - Applesauce (Puree): 1 Vallecula Complete inversion Trace residue within or on the pharyngeal structures Completed trials of teaspoon 2x and heaping spoonful 1x. IDDSI 6 - Loíza with liquid: Not evaluated IDDSI 7 - Cookie: 1 Prior to pharyngeal entry Complete inversion Trace residue within or on the pharyngeal structures Mastication period appeared prolonged, but complete for bolus formation. Completed trials with quarter squares of juan pablo crackers 2x. Pill with thin liquid via straw: 1 Vallecula Complete inversion WFL-Complete pharyngeal clearance Trials completed with tic tac and liquid wash via straw 2x. Diet Recommendation: Regular Diet and Thin Liquids Strategies: small bites and small sips Risk assessment regarding aspiration related pulmonary complications: Given relatively preserved pulmonary clearance, and bacteriological contents, but diminished immuneresponse patient risk for aspiration related pulmonary complication [...] speech changes and pain with speech. Diadochokinetics: [facility] [place] for [facility] GRBASI The GRBASI scale is an [...] reconstruction and neck dissection. At this time, patientpresents characteristics of a functional swallow and speech [...] The patient appears to be a good candidatefor swallow prehabilitation at this time; anticipate re-evaluation and rehabilitation needs at a later date. Patient and clinician in agreement with plan. Written HEP provided. PLAN: Treatment Modalities: Swallowing, ? Speech, Patient Education, Compensatory Strategies Frequency of Visits: no further visits pre-op, anticipate 1-3x/month post-op Duration: 6 months Patient scheduled with my colleague for post-op visit. Patient may benefit from establishing with [facility] in the [place] area at a later date given distance to this hospital from home. Tapper Supervisor Goals: 1. Patient will tolerate a PO diet without pulmonary compromise. Short Term Goals: Patient will complete [id number] of effortful swallows to optimize oropharyngeal pressure in anticipation of dysphagia. Patient will participate in further swallow, speech, voice, trismus, and/or lymphedema evaluation as deemed clinically appropriate by the treating clinician. Prognosis: Good given + PLOF, - age, + support, + skilled intervention, + medical history HOME PROGRAM/EDUCATION: Diet Recommendation: Regular Diet and Thin Liquids Exercises: -effortful swallow [id number]/day -tongue range of motion Madelyn Lackey CCC-[facility] Speech Language Pathologist documented in this [id number] Telephone encounter Note* Telephone Encounter - Pelon Palacios RN - 09/26/2024 4:06 PM EDT Reached patient, who is notified of appts on 10/01 for Speech, PAT and nutrition. She will contact dentist to see them for radiation therapy clearance in the event that she needs it. Form sent to patient's dentist. Pelon Palacios RN [employer] Work Phone: [phone] Miscellaneous Notes* Telephone Encounter - Pelon Palacios RN - 09/26/2024 4:06 PM EDT Reached patient, who is notified of appts on 10/01 for Speech, PAT and nutrition. She will contact dentist to see them for radiation therapy clearance in the event that she needs it. Form sent to patient's dentist. Pelon Palacios RN documented in this [id number] History of Present illness Narrative* Phillip Wells MD - 09/26/2024 9:15 AM EDT Images from the original note were not included. OTOLARYNGOLOGY - HEAD & NECK SURGERY CLINIC NOTE CHIEF COMPLAINT: Chief Complaint Patient presents with New patient, to establish relationship Tongue issues HPI: Omaira Oliver is a 84 year old female with PMH significant for hx of lichen planus for 10 yrswho presents today, 09/26/2024, at the [employer] [facility] at the request of Referring Provider: Juan C Fraser for my opinion and further evaluation of newly diagnosed left lateral tongue SCCa. Today, pt reports 7 month hx of left lateral tongue lesion since January. Recently s/p biopsy with Dr. Arguelles (family resource management specialist) c/w with invasive SCCa. She reports hx of oral lesions related to lichen planus but those typically go away. Denies any pain today but intermittently in nature. Reports some difficulty eating spicy foods but otherwise denies dysphagia. Denies fevers, chills, unintentionalweight loss, night sweats, otalgia, sore throat, oral bleeding,dysphagia, odynophagia, voice changes, shortness of breath, hemoptysis [...] Cuff Size: adult) Pulse 70 Temp 97.9 F (36.6 C) (Temporal) Resp 18 Ht 5' 1 (1.549 m) Wt 129 lb 12.8 oz (58.9 kg) SpO2 100% BMI 24.53 kg/m General: Well-developed, well-nourished. In no acute distress. [...] hyperactive gag reflex, inadequate mirror visualization Surgeon: Phillip Wells MD was present for the entirety of the procedure Procedure: After informed discussion of the risks, benefits, and alternatives, fiberoptic nasopharyngolaryngsocopy was recommended for the above indications, and the patient consented without furtherquestions. Next, a flexible scope was easily advanced into the naris. Nasal cavities were unremarkable. Nasopharynx including Eustachian tubes & fossae of Rosenmuller was unremarkable. Oropharynx including base of tongue & vallecula was unremarkable. Hypopharynx & endolarynx including epiglottis & glottis were unremarkable. Airway was patent & vocal folds were mobile bilaterally. No lesions or masses appreciated. The scope was withdrawn atraumatically. The patient tolerated the procedure well without complications. 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 Oliver that recommended treatment for the majority of oral malignancies include a sequential approach involving surgery to resect primary tumor, and hence I recommended that. Iao reviewed the role of selective neck dissection as a possible part of treatment pending DOI. Surgery, if elected, would involve triple endoscopy, partial glossectomy possible flap/graft but likley primary closure versus secondary intention pending final defect and possible selective neck dissection. The possibility of postoperative adjuvant radiation therapy and possibly even chemotherapy wasreviewed and would depend upon histopathologic results, for example if advanced or adverse features were identified . Alternatively, I reviewed the option of primary non-surgical therapy including radiation therapy inorgan preservation format although for oral tumors this would be less standard. I also reviewed that with nonsurgical therapy that even if successful from an oncologic standpoint that there can stillbe significant negative functional consequences in a substantial percentage of patients which couldbe long-term or permanent. Referral to radiation oncology was offered should the patient wish to discuss or pursue nonsurgical options further. Finally, I reviewed the option of no treatment but did not recommend this and explained the risks of no treatment including likely continued growth and prog ression of disease, development of increasing symptoms, and ultimately life- threatening consequences including which the patient would need to accept if opting for no treatment. I also discussed that no matter which treatment type is elected that neither oncologic cure nor functional/cosmeticoutcome can be guaranteed. I reviewed with patient risks, benefits, alternatives, and possible outcomes of surgery/treatment including but not limited to: bleeding, infection, risk of recurrence in the future, scar formation/cosmetic deformity, poor wound healing/wound breakdown, possible need for additional treatment if thefuture such as further surgery, radiation, and/or chemotherapy, [...] including potential for single or multiple cranial nervedeficits resulting in weakness and/or numbness of the [...] to proceed with surgery as part of heroverall management which I believe is reasonable for her condition. We will hence proceed with scheduling surgery in the near future as well as order appropriate preoperative testing and evaluation prior to surgery. I believe that Ms. Oliver has a good understanding of the issues involved and I answered all of her questions. - Will obtain OSH pathology report for review here at [facility] - Will obtain OSH CT Neck w/ contrast scheduled for 10/03/24 - Referrals placed for [facility], nutrition, and social work team -Discussed role for dental clearance as counseled pt that may require adjuvant treatment, low likelihood given clinical exam but would still recommending discussing with local dentist prior to surgery in the event that any dental extractions are required - Will add on for H&N multidisciplinary tumor board -case request placed and will need pre-op clearance; will try to arrange same day as [facility] aimeeal Thank you so much for allowing me to participate in the care of this patient. Please feel free to contact me if you have any questions or concerns. Phillip Wells MD Otolaryngology - Head and Neck Surgery [facility] Pager: [phone] documented in this [id number] Telephone encounter Note* Telephone Encounter - Berna Desai - 09/17/2024 3:00 PM EDT Pt called back- she is ok with appt. also made aware to call [facility] and confirm the PET and CT pt agreed and ok with seeing Dr. Wells on 09/26 [id number] Miscellaneous Notes* Telephone Encounter - Berna Desai - 09/17/2024 3:00 PM EDT Pt called back- she is ok with appt. also made aware to call [place] and confirm the PET and CT pt agreed and ok with seeing Dr. Wells on 09/26 * Telephone Encounter - Berna Desai - 09/17/2024 10:37 AM EDT Osorio. Just want to let you guys know we received a referral from [place] for this pt. Please see [employer] available would be 09/30 Let me know if that is ok Thank you documented in this [id number] NoteHello. Just want to let you guys know we received a referral from [place] for this pt. Please see [employer] available would be 09/30 Let me know if that is ok Thank [facility]10-23-2024 Telephone encounter Note* Telephone Encounter - Berna Desai - 09/17/2024 10:37 AM EDT Mik[place]. Just want to let you guys know we received a referral from [place] for this pt. Please see [employer] available would be 09/30 Let me know if that is ok Thank you [facility] complaint+Reason for visit Narrative* Chief Complaint SKIN BYOPSY EVALUATI ON 1 Y FU/PREV PFM NONRHEUMATIC MITRAL INSUFFICIENCY Reason for Visit Nonrheumatic mitral valve regurgitation Essential hypertension Hyperlipemia [facility] Work Phone: Evaluation noteNo assessment information available [facility] Work Phone: Evaluation note* Diagnosis Onset Date Resolution Status DDD (degenerative disc disease), lumbar acute S/P lumbar fusion acute DDD (degenerative disc disease), lumbar acute S/P lumbar fusion acute [facility] Work Phone: Evaluation note* Diagnosis Onset Date Resolution Status Nonrheumatic mitral valve regurgitation acute Essential hypertension chron ic Hyperlipemia chronic [facility] Work Phone: Evaluation note* Diagnosis Tongue cancer (HCC)- Primary Malignant neoplasm of tongue, unspecified site [facility] Tongue cancer (HCC)- Primary Malignant neoplasm of tongue, unspecified site [facility]* Diagnosis Tongue cancer (HCC) Malignant neoplasm of tongue, unspecified site [facility]* Diagnosis 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 Lichen planus Body mass index (BMI) 24.0-24.9, adult 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 [facility]* Diagnosis 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 Dietary counseling Dietary surveillance and counseling 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 [facility]* Diagnosis 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 [facility] Diagnosis 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 [facility]* Diagnosis 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 Pre-op testing- Primary Preoperative examination, unspecified Neoplasm of unspecified behavior of unspecified site Body mass index (BMI) 24.0-24.9, adult 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 [facility] Diagnosis 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 Lichen planus [facility]* Diagnosis Oral phase dysphagia- Primary Dysphagia, oral phase 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) [facility]* Diagnosis 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 [facility]* Diagnosis 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 Oral phase dysphagia Dysphagia, oral phase Dietary counseling Dietary surveillance and counseling [facility]* Diagnosis 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 Body mass index (BMI) 25.0-25.9, adult [facility]* Diagnosis 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 [facility]* Diagnosis 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 Oral lesion Other and unspecified diseases of the oral soft tissues [facility]* Diagnosis Oral phase dysphagia- Primary Dysphagia, oral phase 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) [facility]* Diagnosis 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 Oral lesion Other and unspecified diseases of the oral soft tissues Body mass index (BMI) 25.0-25.9, adult [facility]* Name Dates Details How to access health [...] Informa tion Online using Patient Portal and [employer] Indication:Non-smoker Start:30-Nov-2021 Instruction Type:Patient Education [...] Informa tion Online using Patient Portal and [employer] Apps Indication:Non-smoker Start:30-Nov-2021 Instruction Type:Patient Education How [...] Informa tion Online using Patient Portal and [employer] Indication:Non-smoker Start:30-Nov-2021 Instruction Type:Patient Education [...] Internal Medicine; [facility] Work Phone: reason for referral (narrative)No reason for referral information availableWFort [facility] Work Phone: Reason for visit Narrative* Auth/Cert (Routine) Specialty Diagnoses / Procedures Referred By Fuentes irvin Referred To Contact General Surgery Diagnoses 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) [C06.9] Lichen planus [L43.9] Procedures LARYNGOSCOPY, DIRECT, OPERATIVE, W/BIOPSY; CERVICAL LYMPHADENECTOMY (MODIFIED RADICAL NECK DISSECTION) GLOSSECTOMY; < ONE-HALF TONGUE LARYNGOSCOPY, DIRECT GLOSSECTOMY, PARTIAL Possible left selective neck dissection Phillip Wells MD [address] [place] [address] Phone: tel: fax: [facility] [employer] [facility] [address] [place] [id number] Phone: tel: Referral ID Status Reason Start Date Expiration Date Visits Re quested Visits Authorized [id number] 3 3 [facility] for [facility] Service Level Authorization (Routine) - Pending Review Specialty Diagnoses / Procedures Referred By Fuentes irvin Referred To Contact Nutrition Diagnoses 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 09/26/2024 09/26/2025 3 3 [facility] Summary Purpose Family History No Family History Records FoundUnknown Family Member Name Dates Details Brother 1 Comments:Hepatitis, Lung CA Status:Active Father Comments:HTN, Prostate CA Status:Active Maternal Grandfather Comments:SD Status:Active Maternal Grandmother Comments:stroke Status:Active Mother Comments:htn, cholesterol, a nemia, osteoporosis Status:Active Paternal Grandfather Comments:SD Status:Active Sister 1 Comments:Cervial [place] Status:Active Unknown Family Member Name Dates Details Brother 1 Comments:Hepatitis, Lung CA Status:Active Father Comments:HTN, Prostate CA Status:Active Maternal Grandfather Comments:SD Status:Active Maternal Grandmother Comments:stroke Status:Active Mother Comments:htn, cholesterol, a nemia, osteoporosis Status:Active Paternal Grandfather Comments:SD Status:Active Sister 1 Comments:Cervial CA Status:Active Unknown Family Member Name Dates Details Brother 1 Comments:Hepatitis, Lung CA Status:Active Father Comments:HTN, Prostate CA Status:Active Maternal Grandfather Comments:SD Status:Active Maternal Grandmother Comments:stroke Status:Active Mother Comments:htn, cholesterol, a nemia, osteoporosis Status:Active Paternal Grandfather Comments:SD Status:Active Sister 1 Comments:Cervial CA Status:Active Unknown Family Member Name Dates Details Brother 1 Comments:Hepatitis, Lung CA Status:Active Father Comments:HTN, Prostate CA Status:Active Maternal Grandfather Comments:SD Status:Active Maternal Grandmother Comments:stroke Status:Active Mother Comments:htn, cholesterol, a nemia, osteoporosis Status:Active Paternal Grandfather Comments:SD Status:Active Sister 1 Comments:Cervial CA Status:Active Unknown Family Member Name Dates Details Brother 1 Comments:Hepatitis, Lung CA Status:Active Father Comments:HTN, Prostate CA Status:Active Maternal Grandfather Comments:SD Status:Active Maternal Grandmother Comments:stroke Status:Active Mother Comments:htn, cholesterol, a nemia, osteoporosis Status:Active Paternal Grandfather Comments:SD Status:Active Sister 1 Comments:Cervial CA Status:Active Unknown Family Member Name Dates Details Brother 1 Comments:Hepatitis, Lung CA Status:Active Father Comments:HTN, Prostate CA Status:Active Maternal Grandfather Comments:SD Status:Active Maternal Grandmother Comments:stroke Status:Active Mother Comments:htn, cholesterol, a nemia, osteoporosis Status:Active Paternal Grandfather Comments:SD Status:Active Sister 1 Comments:Cervial CA Status:Active Unknown Family Member Name Dates Details Brother 1 Comments:Hepatitis, Lung CA Status:Active Father Comments:HTN, Prostate CA Status:Active Maternal Grandfather Comments:SD Status:Active Maternal Grandmother Comments:stroke Status:Active Mother Comments:htn, cholesterol, a nemia, osteoporosis Status:Active Paternal Grandfather Comments:SD Status:Active Sister 1 Comments:Cervial CA Status:Active Unknown Family Member Name Dates Details Brother 1 Comments:Hepatitis, Lung CA Status:Active Father Comments:HTN, Prostate CA Status:Active Maternal Grandfather Comments:SD Status:Active Maternal Grandmother Comments:stroke Status:Active Mother Comments:htn, cholesterol, a nemia, osteoporosis Status:Active Paternal Grandfather Comments:SD Status:Active Sister 1 Comments:Cervial CA Status:Active Unknown Family Member Name Dates Details Brother 1 Comments:Hepatitis, Lung CA Status:Active Father Comments:HTN, Prostate CA Status:Active Maternal Grandfather Comments:SD Status:Active Maternal Grandmother Comments:stroke Status:Active Mother Comments:htn, cholesterol, a nemia, osteoporosis Status:Active Paternal Grandfather Comments:SD Status:Active Sister 1 Comments:Cervial CA Status:Active Unknown Family Member Name Dates Details Brother 1 Comments:Hepatitis, Lung CA Status:Active Father Comments:HTN, Prostate CA Status:Active Maternal Grandfather Comments:SD Status:Active Maternal Grandmother Comments:stroke Status:Active Mother Comments:htn, cholesterol, a nemia, osteoporosis Status:Active Paternal Grandfather Comments:SD Status:Active Sister 1 Comments:Cervial CA Status:Active Unknown Family Member Name Dates Details Brother 1 Comments:Hepatitis, Lung CA Status:Active Father Comments:HTN, Prostate CA Status:Active Maternal Grandfather Comments:SD Status:Active Maternal Grandmother Comments:stroke Status:Active Mother Comments:htn, cholesterol, a nemia, osteoporosis Status:Active Paternal Grandfather Comments:SD Status:Active Sister 1 Comments:Cervial CA Status:Active Unknown Family Member Name Dates Details Brother 1 Comments:Hepatitis, Lung CA Status:Active Father Comments:HTN, Prostate CA Status:Active Maternal Grandfather Comments:SD Status:Active Maternal Grandmother Comments:stroke Status:Active Mother Comments:htn, cholesterol, a nemia, osteoporosis Status:Active Paternal Grandfather Comments:SD Status:Active Sister 1 Comments:Cervial CA Status:Active Unknown Family Member Name Dates Details Brother 1 Comments:Hepatitis, Lung CA Status:Active Father Comments:HTN, Prostate CA Status:Active Maternal Grandfather Comments:SD Status:Active Maternal Grandmother Comments:stroke Status:Active Mother Comments:htn, cholesterol, a nemia, osteoporosis Status:Active Paternal Grandfather Comments:SD Status:Active Sister 1 Comments:Cervial CA Status:Active Unknown Family Member Name Dates Details Brother 1 Comments:Hepatitis, Lung CA Status:Active Father Comments:HTN, Prostate CA Status:Active Maternal Grandfather Comments:SD Status:Active Maternal Grandmother Comments:stroke Status:Active Mother Comments:htn, cholesterol, a nemia, osteoporosis Status:Active Paternal Grandfather Comments:SD Status:Active Sister 1 Comments:Cervial CA Status:Active Unknown Family Member Name Dates Details Brother 1 Comments:Hepatitis, Lung CA Status:Active Father Comments:HTN, Prostate CA Status:Active Maternal Grandfather Comments:SD Status:Active Maternal Grandmother Comments:stroke Status:Active Mother Comments:htn, cholesterol, a nemia, osteoporosis Status:Active Paternal Grandfather Comments:SD Status:Active Sister 1 Comments:Cervial CA Status:Active Unknown Family Member Name Dates Details Brother 1 Comments:Hepatitis, Lung CA Status:Active Father Comments:HTN, Prostate CA Status:Active Maternal Grandfather Comments:SD Status:Active Maternal Grandmother Comments:stroke Status:Active Mother Comments:htn, cholesterol, a nemia, osteoporosis Status:Active Paternal Grandfather Comments:SD Status:Active Sister 1 Comments:Cervial CA Status:Active Unknown Family Member Name Dates Details Brother 1 Comments:Hepatitis, Lung CA Status:Active Father Comments:HTN, Prostate CA Status:Active Maternal Grandfather Comments:SD Status:Active Maternal Grandmother Comments:stroke Status:Active Mother Comments:htn, cholesterol, a nemia, osteoporosis Status:Active Paternal Grandfather Comments:SD Status:Active Sister 1 Comments:Cervial CA Status:Active Unknown Family Member Name Dates Details Brother 1 Comments:Hepatitis, Lung CA Status:Active Father Comments:HTN, Prostate CA Status:Active Maternal Grandfather Comments:SD Status:Active Maternal Grandmother Comments:stroke Status:Active Mother Comments:htn, cholesterol, a nemia, osteoporosis Status:Active Paternal Grandfather Comments:SD Status:Active Sister 1 Comments:Cervial CA Status:Active Unknown Family Member Name Dates Details Brother 1 Comments:Hepatitis, Lung CA Status:Active Father Comments:HTN, Prostate CA Status:Active Maternal Grandfather Comments:SD Status:Active Maternal Grandmother Comments:stroke Status:Active Mother Comments:htn, cholesterol, a nemia, osteoporosis Status:Active Paternal Grandfather Comments:SD Status:Active Sister 1 Comments:Cervial CA Status:Active Unknown Family Member Name Dates Details Brother 1 Comments:Hepatitis, Lung CA Status:Active Father Comments:HTN, Prostate CA Status:Active Maternal Grandfather Comments:SD Status:Active Maternal Grandmother Comments:stroke Status:Active Mother Comments:htn, cholesterol, a nemia, osteoporosis Status:Active Paternal Grandfather Comments:SD Status:Active Sister 1 Comments:Cervial CA Status:Active Unknown Family Member Name Dates Details Brother 1 Comments:Hepatitis, Lung CA Status:Active Father Comments:HTN, Prostate CA Status:Active Maternal Grandfather Comments:SD Status:Active Maternal Grandmother Comments:stroke Status:Active Mother Comments:htn, cholesterol, a nemia, osteoporosis Status:Active Paternal Grandfather Comments:SD Status:Active Sister 1 Comments:Cervial CA Status:Active Relationship Condition Age at Onset Recorded Date/T tomas Not Specified Malignant neoplasm of cervix Unknown Malignant neoplasm of lung Unknown mother Hypertension Unknown father Hypertension Unknown grandmother Cerebrovascular accident (CVA) Unknown grandfather Myocardial infarction Unknown Unknown Family Member Name Dates Details Brother 1 Comments:Hepatitis, Lung CA Status:Active Father Comments:HTN, Prostate CA Status:Active Maternal Grandfather Comments:SD Status:Active Maternal Grandmother Comments:stroke Status:Active Mother Comments:htn, cholesterol, a nemia, osteoporosis Status:Active Paternal Grandfather Comments:SD Status:Active Sister 1 Comments:Cervial CA Status:Active Unknown Family Member Name Dates Details Brother 1 Comments:Hepatitis, Lung CA Status:Active Father Comments:HTN, Prostate CA Status:Active Maternal Grandfather Comments:SD Status:Active Maternal Grandmother Comments:stroke Status:Active Mother Comments:htn, cholesterol, a nemia, osteoporosis Status:Active Paternal Grandfather Comments:SD Status:Active Sister 1 Comments:Cervial CA Status:Active Unknown Family Member Name Dates Details Brother 1 Comments:Hepatitis, Lung CA Status:Active Father Comments:HTN, Prostate CA Status:Active Maternal Grandfather Comments:SD Status:Active Maternal Grandmother Comments:stroke Status:Active Mother Comments:htn, cholesterol, a nemia, osteoporosis Status:Active Paternal Grandfather Comments:SD Status:Active Sister 1 Comments:Cervial CA Status:Active Unknown Family Member Name Dates Details Brother 1 Comments:Hepatitis, Lung CA Status:Active Father Comments:HTN, Prostate CA Status:Active Maternal Grandfather Comments:SD Status:Active Maternal Grandmother Comments:stroke Status:Active Mother Comments:htn, cholesterol, a nemia, osteoporosis Status:Active Paternal Grandfather Comments:SD Status:Active Sister 1 Comments:Cervial CA Status:Active Unknown Family Member Name Dates Details Brother 1 Comments:Hepatitis, Lung CA Status:Active Father Comments:HTN, Prostate CA Status:Active Maternal Grandfather Comments:SD Status:Active Maternal Grandmother Comments:stroke Status:Active Mother Comments:htn, cholesterol, a nemia, osteoporosis Status:Active Paternal Grandfather Comments:SD Status:Active Sister 1 Comments:Cervial CA Status:Active Unknown Family Member Name Dates Details Brother 1 Comments:Hepatitis, Lung CA Status:Active Father Comments:HTN, Prostate CA Status:Active Maternal Grandfather Comments:SD Status:Active Maternal Grandmother Comments:stroke Status:Active Mother Comments:htn, cholesterol, a nemia, osteoporosis Status:Active Paternal Grandfather Comments:SD Status:Active Sister 1 Comments:Cervial CA Status:Active Advance Directives No Advanced Directives Records Found Advance Directive Response Recorded Date/ Time Living Will No June 07, 2019 12:28pm Power of Prosthetic Assistant No June 07 9 12:28pm Advance Directive Response Recorded Date/ Time Living Will No June 07, 2019 11:28am Power of Prosthetic Assistant No June 07 9 11:28am Advance Directive Response Recorded Date/ Time Living Will No June 07, 2019 12:28pm Do you have a Healthcare Power of Prosthetic Assistant? No June 07, 2019 12:28pm Instructions Name Dates Details How to access [...] Indication:Cough Start:25-Jul-2016 Instruction Type:Provider Instructions for Treatment Chief Complaint and Reason for Visit Chief Complaint SCREENING Chief Complaint SCREENING LUMBER SPINE xray LOW BACK PAIN LUMBER SPINE Reason for Visit DDD (degenerative di sc disease), lumbar S/P lumbar fusion DDD (degenerative disc disease), lumbar S/P lumbar fusion Chief Complaint LUMBER SPINE xray LOW BACK PAIN LUMBER SPINE xray EORDER EORDER Reason for Visit DDD (degenerative di sc disease), lumbar S/P lumbar fusion DDD (degenerative disc disease), lumbar S/P lumbar fusion Chief Complaint xray EORDER EORDER [address] EORDER [address] DR HOLGUIN Reason for Visit Nonrheumatic mitral valve regurgitation Essential hypertension Hyperlipemia Chief Complaint 1 y fu EORDER FROM DR HOLGUIN EORDER- 2 ORDERS/ 2 ARNOLD Reason for Visit Nonrheumatic mitral valve regurgitation Essential hypertension Hyperlipemia Chief Complaint EORDER FROM DR LAKHWINDER KHANNA EORDER- 2 ORDERS/ 2 ARNOLD Chief Complaint Admit Date 1 Y FU/PREV PFM January 22, 2025 8:27am Reason for Visit Admit Date Nonrheumatic mitral valve regurgitation January 22, 2025 8:27am Essential hypertension January 22 8:27am Hyperlipemia January 22, 2025 8:27am Reason for Referral Specialty Diagnoses / Procedures Referred By Contac t Referred To Contact Radiology Diagnoses Tongue cancer (HCC) Procedures DOWNLOAD POWERSHARE IMAGES TO Phillip Dennis MD [address] [place] [address] [facility] DIAGNOSTIC RADIOLOGY [address] [place] [address] [place] [address] Referral ID Status Reason Start Date Expiration Date V isits Requested Visits Authorized [id number] Authorized 09/17/2024 09/17/2025 1 1 Specialty Diagnoses / Procedures Referred By Contac t Referred To Contact Radiology Diagnoses Tongue cancer (HCC) Procedures PET IMAGE IMPORT(GALINA) DOWNLOAD POWERSHARE IMAGES TO Phillip Dennis MD [address] [place] [address] [facility] DIAGNOSTIC RADIOLOGY [address] [place] [address] [place] [address] Referral ID Status Reason Start Date Expiration Date Visits Re quested Visits Authorized [id number] Closed 09/17/2024 09/17/2025 1 1 Specialty Diagnoses / Procedures Referred By Fuentes irvin Referred To Contact Anesthesiology Diagnoses 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 Question Answer Reason for consult? 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 Procedures FIBEROP ENDOSC EVAL/SWALLOWING LARYNGOSCOPY, FLEXIBLE/RIGID FIBEROPTIC, W/STROBOSCOPY EVALUATE SPEECH PRODUCTION BEHAVRAL QUALIT ANALYS VOICE EVAL, ORAL & PHARYNGEAL SWALLOW FUNCTION EVAL FOR USE/FIT OF VOICE PRO DYSPHAGIA THERAPY JOINT MOBILIZATION COGNITIVE REHAB INDIV THERAPY Phillip Wells MD [address] [place] [address] [place] [address] Referral ID Status Reason Start Date Expiration Date Visits Requested Visits Authorized [id number] [facility] 09/26/2024 09/26/2025 10 10 Scheduling Instructions SCHEDULING INSTRUCTIONS: Call [phone] to schedule your Speech Therapy appointment. We offer therapy services at many convenient locations. Please arrive 20 minutes prior to your appointment to register. It is important to bring your insurance cards and a personal identification card to your appointment. If you are unable to keep your appointment, cancel or reschedule by calling [phone] or via [facility]. Thank you! Question Answer Is this for a new patient or continuation of treatment? (New = hasn't been seen for referring dx/problem for outpatient therapy in the last 3 mo.) New Patient Is this Urgent or Chronic? Non-Urgent Is the reason for this visit Workers' Comp related? No What is the primary reason for visit? 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 09/26/2024 09/26/2025 3 3 Scheduling Instructions Please call the Nutrition Clinic at to schedule an appointment if one was not made for you today. Question Answer Reason for Referral Cancer [2] Specialty Diagnoses / Procedures Referred By Fuentes irvin Referred To Contact Phillip Wells MD [address] [place], [place] [id number] Referral ID Status Reason Start Date Expiration Date Visits Re quested Visits Authorized Question Answer Referral Reason: ADJUSTMENT TO ILLNESS Location Patient Prim Care ONCOLOGY, MAIN BALL GROUND Additional Source Comments INFORMATION SOURCE (unrecogn ized section and content) DATE CREATED AUTHOR 05/21/2018 [facility] DATE CREATED AUTHOR AUTHOR'S ORGANIZ ATION 05/22/2018 [facility] DATE CREATED AUTHOR AUTHOR'S ORGANIZ ATION 01/05/2023 [facility] DATE CREATED AUTHOR AUTHOR'S ORGANIZ ATION 05/23/2025 [employer] DATE CREATED AUTHOR AUTHOR'S ORGANIZ ATION 06/28/2025 [facility] Goals (unrecognized section and content) Goals may be documented in a n alternate sectionGoals may be documented in an alternate sectionGoals may be documented in an alternate sectionGoals may be documented in an alternate sectionGoals may be documented in an alternate sectionGoals may be documented in an alternate sectionGoals may be documented in an alternate sectionGoals may be documented in an alternate sectionGoals may be documented in an alternate sectionGoals may be documented in an alternate sectionGoals may be documented in an alternate section Care Teams (unrecognized sec tion and content) Team Status: Active Member Role Status Dates Dr. Raquel Mauro , DO Family Provider Active Dr. Raquel Mauro , DO Primary Care Provider Active Team Status: Inactive Member Role Status Dates Dr. Raquel Mauro , DO Primary Care Provider, Referr ing Provider Active Casandra Storey PA, PA Attending Provider Active Team Status: Inactive Member Role Status Dates Dr. Raquel Mauro , DO Primary Care Provider Active Dr. Kentrell Palacios MD Attending Provider Active Team Status: Inactive Member Role Status Dates Dr. Raquel Mauro , DO Primary Care Provider Active Dr. Brad Holguin MD Attending Provider, Referring Provider Active Team Status: Inactive Member Role Status Dates Dr. Raquel Mauro , DO Primary Care Provider Active Dr. Brad Holguin MD Attending Provider, Referring Provider Active Dr. Bertin Arguelles MD Other Provider Active Team Status: Inactive Member Role Status Dates Dr. Raquel Mauro , DO Primary Care Provider Active Dr. Juan C Fraser MD Attending Provider, Referring Pr ovider Active Team Status: Inactive Member Role Status Dates Dr. Raquel Mauro , DO Primary Care Pr ovider, Attending Provider, Referring Provider Active Team Status: Active Member Role Status Dates Dr. Raquel Mauro DO Family Provider Active Pelon Blackwood DO Primary Care Provider Active Team Status: Inactive Member Role Status Dates [place] Blackwood DO Primary Care Provider, Referring Provider Active Casandra Storey PA, PA Attending Provider Active Team Status: Active Member Role Status Dates [place] Blackwood DO Primary Care Provider Active Dr. Kentrell Palacios MD Attending Provider Active Team Status: Inactive Member Role Status Dates [place] Blackwood DO Primary Care Provider Active Dr. Elena Allen DPM Attending Provider, Referring Pr ovider Active Team Status: Inactive Member Role Status Dates [place] Blackwood , DO Primary Care Provider Active Casandra Storey PA, PA Attending Provider, Referr ing Provider Active Inventory Control Assistant Relationship Specialty Start Date End Date Madelyn Lackey CCC-WEDGER [address] [place] [address] Speech Language Pathologist Speech Pathology 11/01/24 Phillip Wells MD [address] [place] [address] Physician Otolaryngology 11/01/24 Inventory Control Assistant Relationship Specialty Start Date End Date Madelyn Lackey CCC-WEDGER [address] [place] [address] [place] [address] Speech Language Pathologist Speech Pathology 11/01/24 Phillip Wells MD [address] [place] [address] Physician Otolaryngology 11/01/24 Farida De Luna CCC-WEDGER [address] [place] [address] Speech Language Pathologist Speech Pathology 11/29/24 Arely Bates CCC-WEDGER [address] [place] [phone] Speech Language Pathologist Speech Pathology 01/24/25 Inventory Control Assistant Relationship Specialty Start Date End Date Madelyn Lackey CCC-WEDGER [address] [place] [address] [place] [address] Speech Language Pathologist Speech Pathology 11/01/24 Phillip Wells MD [address] [place] [address] Physician Otolaryngology 11/01/24 Farida De Luna CCC-WEDGER [address] [place] [address] Speech Language Pathologist Speech Pathology 11/29/24 Arely Bates CCC-WEDGER [address] [place] [address] Speech Language Pathologist Speech Pathology 01/24/25 Inventory Control Assistant Relationship Specialty Start Date End Date Madelyn Lackey CCC-WEDGER [address] [place] [address] [place] [address] Speech Language Pathologist Speech Pathology 11/01/24 Phillip Wells MD [address] [place] [address] Physician Otolaryngology 11/01/24 Farida De Luna CCC-WEDGER [address] [place] [address] Speech Language Pathologist Speech Pathology 11/29/24 Arely Bates CCC-WEDGER [address] [place] [address] Speech Language Pathologist Speech Pathology 01/24/25 Inventory Control Assistant Relationship Specialty Start Date End Date Madelyn Lackey CCC-WEDGER [address] [facility] [place] [address] Speech Language Pathologist Speech Pathology 11/01/24 Phillip Wells MD [address] [place] [address] Physician Otolaryngology 11/01/24 Farida De Luna CCC-WEDGER [address] [place] [address] Speech Language Pathologist Speech Pathology 11/29/24 Arely Bates CCC-WEDGER [address] [place] [address] Speech Language Pathologist Speech Pathology 01/24/25 Team Status: Active Member Role Status Dates Юлия Conti MD Primary Care Provider Active Team Status: Inactive Member Role Status Dates [place] Blackwood DO Referring Provider Active Start: January 22, 2025 End: January 22, 2025 Casandra Storey PA, PA Attending Provider Active Start: January 22, 2025 End: January 22, 2025 Юлия Conti MD Primary Care Provider Active St art: January 22, 2025 End: January 22, 2025 Team Status: Inactive Member Role Status Dates GHAZAL MORAN Attending Provider Active Start : March 24, 2025 End: March 24, 2025 GHAZAL MORAN Referring Provider Active Start : March 24, 2025 End: March 24, 2025 Юлия Conti MD Primary Care Provider Active St art: March 24, 2025 End: March 24, 2025 Inventory Control Assistant Relationship Specialty Start Date End Date Madelyn Lackey CCC-WEDGER [address] [facility] [place] [address] Speech Language Pathologist Speech Pathology 11/01/24 Phillip Wells MD [address] [place], [place] [phone] Physician Otolaryngology 11/01/24 Farida De Luna CCC-WEDGER [address] [place] [address] Speech Language Pathologist Speech Pathology 11/29/24 Inventory Control Assistant Relationship Specialty Start Date End Date Madelyn Lackey CCC-WEDGER [address] [place] [address] [place] [phone] Speech Language Pathologist Speech Pathology 11/01/24 Phillip Wells MD [address] [place] [address] Physician Otolaryngology 11/01/24 Farida De Luna, CCC-WEDGER [address] [place] [address] Speech Language Pathologist Speech Pathology 11/29/24 Arely Bates CCC-WEDGER [address] [place] [address] Speech Language Pathologist Speech Pathology 01/24/25 Team Status: Active Member Role/Relationship Status Dates Юлия Conti MD Primary Care Provider Active Team Status: Inactive Member Role/Relationship Status Dates GHAZAL MORAN Attending Provider Active Start : March 24, 2025 End: March 24, 2025 GHAZAL MORAN Referring Provider Active Start : March 24, 2025 End: March 24, 2025 Юлия Conti MD Primary Care Provider Active St art: March 24, 2025 End: March 24, 2025 Team Status: Inactive Member Role/Relationship Status Dates Юлия Conti MD Primary Care Provider Active St art: May 26, 2025 End: May 26, 2025 Dr. Dakota Doshi MD Attending Provider Active Start: May 26, 2025 End: May 26, 2025 Dr. 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 Procedures FIBEROP ENDOSC EVAL/SWALLOWING LARYNGOSCOPY, FLEXIBLE/RIGID FIBEROPTIC, W/STROBOSCOPY EVALUATE SPEECH PRODUCTION BEHAVRAL QUALIT ANALYS VOICE EVAL, ORAL & PHARYNGEAL SWALLOW FUNCTION EVAL FOR USE/FIT OF VOICE PRO DYSPHAGIA THERAPY JOINT MOBILIZATION COGNITIVE REHAB INDIV THERAPY Phillip Wells MD [address] [place] [address] Phone: tel: fax: [facility] Speech Pathology [address] [place] [address] Phone: tel: Referral ID Status Reason Start Date Expiration Date Visits Requested Visits Authorized [id number] Authorized [facility] 09/26/2024 09/26/2025 10 10 Reason Onset Date Comments Referral From Kamuela 09/17/2024 Specialty Diagnoses / Procedures Referred By Fuentes irvin Referred To Contact Radiology Diagnoses Tongue cancer (HCC) Procedures PET IMAGE IMPORT(GALINA) DOWNLOAD POWERSHARE IMAGES TO Phillip Dennis MD [address] [place] [address] [facility] DIAGNOSTIC RADIOLOGY [address] [place] [address] Referral ID Status Reason Start Date Expiration Date Visits Re quested Visits Authorized [id number] Closed 09/17/2024 09/17/2025 1 1 Reason Comments New patient, to establish relationship T ongue issues Reason Onset Date Comments Research Visit 09/30/2024 Called patient t o provide information regarding GUARDIAN. Patient identity was verified using three identifiers. 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 09/26/2024 09/26/2025 10 10 Reason Onset Date Comments FMLA 10/02/2024 Reason Onset Date Comments Question about medication 10/13/2024 Reason Onset Date Comments Discuss results test/procedures 10/19/2024 Reason Comments Treatment 2 Reason Comments Post-op Follow-up Follow up tongue Reason Comments follow up: follow up: status post left p artial glossectomy Reason Comments Procedure Laser procedure Reason Onset Date Comments Discuss results test/procedures 03/18/2025 Reason Comments Monitoring/follow-up Follow up Scheduled Active and Recently Administ ered Medications (unrecognized section and content) Medication Order 10/11/2024 10/12/2024 10/13/2024 acetaminophen (TYLENOL) tablet (COMPLETED) 1,000 mg, Oral, Once, 1 dose, On Sun10/13/24 at 1030 1000 (Given by [facility] - Provider: Marilyn Palma RN)1030 (Due) PRN Medication Order 10/11/2024 10/12/2024 10/13/2024 amisulpride (BARHEMSYS) injection 10 mg 10 mg, Intravenous Push, PACU ONCE PRN, Starting on Sun10/13/24 at 1229, Until Sun10/13/24 at 1828, post operative nausea or vomiting, PACU Now fentaNYL (SUBLIMAZE) 50 MCG/ML injection 25 mcg, Intravenous Push, PACU EVERY 15 MIN PRN X 2 DOSES, Starting on Sun10/13/24 at 1241, Until Sun10/13/24 at 1840, Severe Pain (pain score 7,8,9,10) lidocaine-epinephrine (XYLOCAINE) 1 %-1:[id number] injection SOLN (CANCELED) PRN, Starting on Sun10/13/24 at 1037, Until Sun10/13/24 at 1232, Intra-op 1037 (Given - Provid er: Phillip Wells MD) naloxone (NARCAN) 0.4 MG/ML injection 0.4 mg, Intravenous Push, PRN, Starting on Sun10/13/24 at 1228, Until Discontinued, Respiratory Rate Less Than 8 for adults and less than 12 for Peds or for suspected overdose, PACU Now sodium chloride 0.9 % injection 3 mL, Intravenous Push, PRN, Starting on Sun10/13/24 at 1228, Until Discontinued, For medication administration and blood draw, PACU Now tramadol (ULTRAM) tablet (COMPLETED) 100 mg, Oral, ONCE PRN, 1 dose, Starting on Sun10/13/24 at 1241, Until Sun10/13/24 at 1432, Moderate Pain (pain score 4,5,6) 1432 (Given - Provid er: Ana Maria Sanders RN) tramadol (ULTRAM) tablet 25 mg, Oral, ONCE PRN, 1 dose, Starting on Sun10/13/24 at 1241, Until Discontinued, Mild Pain (pain score 1,2,3) FOR RECORDS PERTAINING TO PATIENTS WHO ARE [...] BE BASED ON THE PRIMARY CLINICAL RECORDS. [facility]. provides no warranty or guarantee of the accuracy or completeness of information in this document.
[2025-07-09 05:27] LABS: Hematocrit 26.0 % (37-47); Hemoglobin 9.3 g/dL (12.0-15.0); Immature Granulocytes Count 0.180 X10^3/uL (0.0-0.0); Mean Corp Hgb Conc 35.8 g/dL (32-36); Mean Corpuscular Volume 87.5 fL (81-99); Mean Platelet Vol. 8.6 fl (6.2-12.0); NRBC Flagged by Analyzer 0 % (0-5); POSITIVE DIFFERENTIAL YES; Platelet Count 245 K/mm3 (150-450); RBC Distribution Width CV 13.8 % (11.6-14.6); RBC Distribution Width SD 43.9 fl (35.1-43.9); Red Blood Count 2.97 M/mm3 (4.2-5.4); White Blood Count 7.1 K/mm3 (4.4-11.0)
[2025-07-09 05:45] LABS: Troponin T High Sensitivity 33 ng/L (<=14)
[2025-07-09 05:46] LABS: AST(SGOT) 24 U/L (<=31); Alanine Aminotransfer ALT/SGPT 19 U/L (<=34); Albumin, Serum 3.5 g/dL (3.4-4.8); Alkaline Phosphatase 57 U/L (35-104); Anion Gap 12 (5-15); BUN 19 mg/dL (4-19); BUN/Creat Ratio 21.0 RATIO (10-20); Calcium,Total 9.0 mg/dL (7.6-11.0); Carbon Dioxide 26.3 mmol/L (21.0-32.0); Chloride 88 mmol/L (98-108); Estimated Creatinine Clearance 41.87 ml/min (50-250); Globulin 2.5 g/dL (2.2-4.2); Glucose 91 mg/dL (70-99); Lipase 96 U/L (13-75); Potassium 3.3 mmol/L (3.3-5.1)
[2025-07-09 05:55] LABS: Prothrombin Time (Protime)PT. 13.1 SECONDS (11.7-14.9)
[2025-07-09 05:56] LABS: Partial Thromboplast Time 33.5 Seconds (24.1-36.2)
[2025-07-09 06:10] LABS: Mucous, Urine 0 SEEN /hpf (<or=2+); Red Blood Cells-Urine 0 SEEN /hpf (0-5)
[2025-07-09 06:11] LABS: Color, Urine Straw (Yellow); Glucose, Dipstick Normal (Normal); Ketone-Dipstick Negative (Negative); Leukocyte Esterase-Dipstick 500 /ul (Negative); Nitrite-Dipstick Negative (Negative); Occult Blood-Urine 10 /ul (Negative); Protein-Dipstick 15 mg/dl (Negative); Specific Gravity, Urine 1.010 (1.002-1.030); Urine Bilirubin Dipstick Negative (Negative)
[2025-07-09] MEDS: 0.9% Normal Saline (1000mL) 1,000 ML 1000 ML IV (06:12)
[2025-07-09 06:24] LABS: Squamous Epithelial Cells - UA 0-5 SEEN /hpf (5-10)
--- NOTE | 2025-07-09 07:30 | PCM.HP.STD ---
HPI - General General Date of Admission: 07/09/25 HPI Narrative ANGEL OLIVER, is a 85 F who presents to the hospital with fatigue and weakness. She says that this started over the last couple days. She is unclear as to why though she thinks that it is because she has low iron despite the fact that in the beginning of May she had iron studies that showed an iron level of 91 with a saturation of 29% and a ferritin of 82. She also recently had an injection on her right hip for bursitis and is supposed to have another one tomorrow for her left hip. She also had an erythropoietin level drawn the end of May that was 6.1. B12 and folate were normal and TSH was 2.92 weeks ago. In the ER she is not a leukocytosis and is afebrile however her urine was positive for a UTI and given her age fatigue and weakness are associated with a UTI. She does also have hyponatremia and this may be due to some mild dehydration especially since she is on Lasix. Fecal occult in the ER also demonstrated positive blood though she states that she has a history of hemorrhoids. She is anemic to 9.3, at the end of May she was 11.8. [facility] Medical History (Updated 07/09/25 @ 08:57 by Leigh Urban) Pure hypercholesterolemia Diverticulitis Essential hypertension Hiatal hernia History of aortic valve disorder GERRY (obstructive sleep apnea) Trigger finger of thumb GERD (gastroesophageal reflux disease) Nonrheumatic tricuspid (valve) insufficiency Nonrheumatic mitral valve regurgitation Diastolic dysfunction Pulmonary hypertension Back pain Neck pain Limb weakness Difficulty balancing Knee pain Anemia Acute hemorrhoid Basal cell carcinoma Home Medications ?Medication ?Instructions ?Recorded ?Last Taken ?Type clobetasol 0.05 % topical gel 1 applic topical DAILY 02/18/21 Unknown History dicyclomine 10 mg capsule 10 mg PO BID PRN abdominal pain 01/22/25 Unknown History hydroxychloroquine 200 mg tablet 200 mg PO QDAY 01/22/25 Unknown History cholecalciferol (vitamin D3) 250 250 mcg PO DAILY 07/09/25 Unknown History mcg (10,000 unit) capsule clotrimazole 10 mg maicol 10 mg PO DAILY PRN skin irritation 07/09/25 Unknown History dexlansoprazole 60 mg 60 mg PO DAILY 07/09/25 Unknown History capsule,biphase delayed release furosemide 20 mg tablet 20 mg PO DAILY 07/09/25 Unknown History Allergy/AdvReac Type Severity Reaction Status Date / Time amitriptyline Allergy Severe hypotension Verified 07/09/25 04:46 meloxicam Allergy Severe hypotension Verified 07/09/25 04:46 lidocaine AdvReac Mild shaking Verified 07/09/25 04:46 cortisone AdvReac Nausea, Verified 07/09/25 04:46 hot flashes, and passing out hydrochlorothiazide AdvReac Other Verified 07/09/25 04:46 morphine AdvReac Other Verified 07/09/25 04:46 nitrofurantoin (From AdvReac Other Verified 07/09/25 04:46 Macrobid) Family History Mother Hypertension Father Hypertension Grandmother CVA (cerebral vascular accident) Grandfather Myocardial infarction Grandfather Myocardial infarction Other Cervical cancer Lung cancer Surgical History (Updated 07/09/25 @ 08:57 by Leigh Urban) History of partial knee replacement Status post trigger finger release History of spinal fusion Hx of carpal tunnel repair History of back surgery Hx of hysterectomy Hx of cholecystectomy Hx of tonsillectomy s/p right knee UKA h/o left carpal tunnel release Hx of cholecystectomy spinal fusion History of tonsillectomy H/O: hysterectomy Social History Smoking Status: Never smoker alcohol intake: never substance use type: does not use ROS Constitutional Constitutional: Reports fatigue, malaise and weakness; Denies chills or fever(s) Eyes Eyes: Denies blurry vision ENT HEENT: Denies headache(s) or nasal discharge Cardiovascular Cardiovascular: Denies chest pain, dyspnea on exertion or syncope Respiratory/Chest Respiratory/Chest: Denies cough, shortness of breath at rest or shortness of breath with exertion Gastrointestinal Gastrointestinal: Denies constipation, diarrhea, nausea or vomiting Genitourinary Genitourinary: Denies dysuria Neurologic Neurologic: Denies focal weakness, numbness or tremor(s) Psychiatric Psychiatric: Denies anxiety or depression Vital Signs Vital Signs Vital Signs: 07/09/25 04:43 07/09/25 05:23 07/09/25 05:28 Temperature 98.7 F Temperature Source Oral Pulse Rate 75 Pulse Rate [Lying] 81 Pulse Rate [Sitting (for 1 minute prior to obtaining)] 85 Pulse Rate [Standing (for 1 minute prior to obtaining)] 100 Respiratory Rate 18 Respiratory Effort Normal Non-Labored Respiratory Pattern Normal Blood Pressure 136/74 H Blood Pressure [Lying] 150/72 H Blood Pressure [Sitting (for 1 minute prior to obtaining)] 148/80 H Blood Pressure [Standing (for 1 minute prior to obtaining)] 150/88 H Blood Pressure Mean 94 Blood Pressure Mean [Lying] 98 Blood Pressure Mean [Sitting (for 1 minute prior to obtaining)] 102 Blood Pressure Mean [Standing (for 1 minute prior to obtaining)] 108 Pulse Ox 98 Oxygen Delivery Method Room Air 07/09/25 06:43 07/09/25 07:23 Temperature 98.7 F Temperature Source Pulse Rate 73 71 Pulse Rate [Lying] Pulse Rate [Sitting (for 1 minute prior to obtaining)] Pulse Rate [Standing (for 1 minute prior to obtaining)] Respiratory Rate 15 22 H Respiratory Effort Respiratory Pattern Blood Pressure 138/77 H 140/81 H Blood Pressure [Lying] Blood Pressure [Sitting (for 1 minute prior to obtaining)] Blood Pressure [Standing (for 1 minute prior to obtaining)] Blood Pressure Mean 97 100 Blood Pressure Mean [Lying] Blood Pressure Mean [Sitting (for 1 minute prior to obtaining)] Blood Pressure Mean [Standing (for 1 minute prior to obtaining)] Pulse Ox 97 99 Oxygen Delivery Method Room Air Weight Weight: 146 lb 6.191 oz Body Mass Index (BMI) 26.7 Results Lab / Micro Data 07/09/25 05:14 07/09/25 05:14 Labs: Laboratory Results - last 24 hr 07/09/25 05:14: WBC 7.1, RBC 2.97 L, Hgb 9.3 L, Hct 26.0 L, MCV 87.5, MCH 31.3, MCHC 35.8, RDW Std Deviation 43.9, RDW Coeff of Janessa 13.8, Plt Count 245, MPV 8.6, Immature Gran % (Auto) 2.500 H, Neut % (Auto) 83.9 H, Lymph % (Auto) 5.7 L, [place] % (Auto) 7.2, Eos % (Auto) 0.4, Baso % (Auto) 0.3, Absolute Neuts (auto) 5.9, Absolute Lymphs (auto) 0.40 L, Nucleated RBC % 0, PT 13.1, INR 1.0, APTT 33.5, Sodium 126 L, Potassium 3.3, Chloride 88 L, Carbon Dioxide 26.3, Anion Gap 12, BUN 19, Creatinine 0.91, Estim Creat Clear Calc 41.87 L, Est GFR (MDRD) Non-Af 63, BUN/Creatinine Ratio 21.0 H, Glucose 91, Calcium 9.0, Total Bilirubin 0.28, AST 24, ALT 19, Alkaline Phosphatase 57, Troponin T High Sens 33 H, Total Protein 6.1, Albumin 3.5, Globulin 2.5, Albumin/Globulin Ratio 1.4, Lipase 96 H 07/09/25 06:06: Urine Color Straw, Urine Clarity Clear, Urine pH 6.5, Ur Specific [place] 1.010, Urine Protein 15 H, Urine Glucose (UA) Normal, Urine Ketones Negative, Urine Occult Blood 10 H, Urine Nitrite Negative, Urine Bilirubin Negative, Urine Urobilinogen Normal, Ur Leukocyte Esterase 500 H, Urine RBC 0 SEEN, Urine WBC 5-10 SEEN, Ur Squamous Epith Cells 0-5 SEEN, Urine Bacteria 1+, Urine Mucus 0 SEEN Micro: Microbiology 07/09/25 06:40 Stool Stool Occult Blood (MADDISON) - Final Occult Blood Positive Imaging Radiology Impression Abdomen/Pelvis CT 07/09/25 05:06 IMPRESSION: There is possible jejunal enteritis such as secondary to infection. Advise correlation. Reading Location: [place] [address] Assessment & Plan Assessment/Plan (1) Hyponatremia: (2) Urinary tract infection: (3) Gastrointestinal bleed: (4) Anemia: PLAN: Plan 1. Fatigue and weakness secondary to UTI with possible lower GI bleed and hyponatremia ? Hyponatremia is likely related to dehydration and Lasix use, will give her IV fluids and recheck in the morning ? Will recheck her H&H this afternoon though she does state that she has hemorrhoids which is a likely cause ? Urine cultures pending, continue with Rocephin ? PT/OT 2. Diastolic cardiomyopathy with mild pulmonary hypertension ? Will hold her Lasix for now ? Will recheck sodium and lab work in the morning she can likely restart on discharge 3. GERD ? Stable ? Continue with PPI DVT: SCDs Charges/Coding Visit Charges Inpatient E&M: 25788 Init Hosp L2
[2025-07-09 07:53] LABS: Troponin T High Sens 2 HR 33 ng/L (<=14)
[2025-07-09] MEDS: Piperacil/Tazobactam 3.375 GM in 0.9% Normal Saline (50mL MB+) 50 ML IV (08:17)
[2025-07-09] MEDS: 0.9% Normal Saline (1000mL) 1,000 ML 75 ML IV (09:25)
[2025-07-09 09:55] LABS: Troponin T High Sens 4 HR 32 ng/L (<=14)
[2025-07-09] MEDS: Pantoprazole Sodium 40 MG in 0.9% Normal Saline (100mL MB+) 100 ML 300 MG IV ×2 (09:58→22:12)
[2025-07-09 13:01] LABS: Hematocrit 28.7 % (37-47); Hemoglobin 9.9 g/dL (12.0-15.0)
[2025-07-10] MEDS: 0.9% Normal Saline (1000mL) 1,000 ML 75 ML IV (02:19)
[2025-07-10 04:10] VITALS: BP 143/77; PULSE 78; RESP 16; TEMP 36.7; O2SAT 97
[2025-07-10 06:41] LABS: Hematocrit 26.1 % (37-47); Hemoglobin 9.0 g/dL (12.0-15.0); Immature Granulocytes Count 0.090 X10^3/uL (0.0-0.0); Mean Corp Hgb Conc 34.5 g/dL (32-36); Mean Corpuscular Volume 88.8 fL (81-99); Mean Platelet Vol. 9.0 fl (6.2-12.0); NRBC Flagged by Analyzer 0 % (0-5); POSITIVE DIFFERENTIAL YES; Platelet Count 264 K/mm3 (150-450); RBC Distribution Width CV 13.8 % (11.6-14.6); RBC Distribution Width SD 44.8 fl (35.1-43.9); Red Blood Count 2.94 M/mm3 (4.2-5.4); White Blood Count 5.9 K/mm3 (4.4-11.0)
[2025-07-10 07:31] LABS: Anion Gap 8 (5-15); BUN 8 mg/dL (4-19); BUN/Creat Ratio 13.6 RATIO (10-20); Calcium,Total 9.1 mg/dL (7.6-11.0); Carbon Dioxide 29.1 mmol/L (21.0-32.0); Chloride 92 mmol/L (98-108); Estimated Creatinine Clearance 46.24 ml/min (50-250); Glucose 91 mg/dL (70-99); Potassium 3.3 mmol/L (3.3-5.1)
[2025-07-10] MEDS: Pantoprazole Sodium 40 MG in 0.9% Normal Saline (100mL MB+) 100 ML 300 MG IV (08:33)
[2025-07-10 09:57] VITALS: BP 155/84; PULSE 82; RESP 16; TEMP 36.5; O2SAT 97
--- NOTE | 2025-07-10 11:05 | CASEMGMT ---
MARTI MOORE Assessment Face to Face with patient for initial transition planning/care coordination assessment. MARTI MOORE introduced self and role at [facility], pt voices understanding. Pt is A&Ox4 and is resting comfortably in the chair and is calm. Pt recently returned from the bathroom. Care providers, pharmacy, and demographics verified. Admitting dx: GI Bleed and UTI LACE Strata: 2 PCP: Юлия Conti Specialists: Barb ([facility]), Blane (Dermatology) Preferred Pharmacy: [facility] Insurance: [facility] Prescription Benefit: Yes LNOK: Reva (Daughter), Ryan (Son) Living Arrangements: Pt lives alone in a single story home with 2 steps to enter with grab [employer] ADLs/IADLs: Pt states that she is indep and denies concerns. Current 6-Click score is 18. Pt states that therapy has worked with the pt already and reports that additional therapy is recommended. Transportation: Self, family including GS @ [place] DME: Access to a cane, FWW, WC, Shower chair, grab bars, BP Machine, and pulse ox HHC/SNF: Denies hx or needs. Pt states that she has been to in the past for OP PT Pt?s goal: Home Plan: Home, no additional needs anticipated. Pt states that she feels safe returning home once medically ready and denies further questions or concerns at this time. Kevon Benson RN, CM
[2025-07-10 12:15] LABS: Hematocrit 25.8 % (37-47); Hemoglobin 9.2 g/dL (12.0-15.0)
--- NOTE | 2025-07-10 12:37 | DCINST_ITS ---
Discharge Instructions DC O2, CPAP, BIPAP needs Home O2 Discharge instructions: No Dressing / Incision Discharge Activity: Return to Normal Activity Dressing / Incision Call your doctor if you observe: Fever of 101 or Higher, Shortness of breath, Dizziness, Fainting spells, Swelling in the ankles, Chest pain and Increased palpitations (irregular heartbeat) Follow Up Care Test Results: Test results from this visit will be discussed in further detail at your follow- up appointment, if applicable. Discharge Plan Admission Admit Date/Time: 07/09/25 07:26 Attending Provider: Sergio Paulino Primary Care Provider: Юлия Conti Instructions Additional Instructions / Restrictions: Follow-up with your PCP in 3 to 5 days, and obtain iron studies in about a month or 2. I do recommend to follow-up with GI for the slight GI bleeding likely secondary to your history of hemorrhoids. Discharge Orders/Prescriptions Prescriptions: New cefdinir 300 mg capsule 300 mg PO BID Qty: 6 0RF Continued dicyclomine 10 mg capsule 10 mg PO BID PRN (Reason: abdominal pain) clobetasol 0.05 % gel 1 applic TOPICAL DAILY hydroxychloroquine 200 mg tablet 200 mg PO QDAY cholecalciferol (vitamin D3) 250 mcg (10,000 unit) capsule 250 mcg PO DAILY dexlansoprazole 60 mg capsule,biphase delayed releas 60 mg PO DAILY clotrimazole 10 mg maicol 10 mg PO DAILY PRN (Reason: skin irritation) Held furosemide 20 mg tablet 20 mg PO DAILY Hold Instructions: Resume on 07/12/25. Referrals / Follow Up: Юлия Conti MD [Primary Care Provider] - Within 1 Week FriendShilo DO [Med Staff - Active Staff] - Within 1 Month (Lower GI bleed, h/o hemorrhoids) Disposition Disposition (needs filled in before D/C Order can be placed): Home, Self Care
--- NOTE | 2025-07-10 13:43 | PCM.DC.SUM ---
Providers Date of Admission: 07/09/25 Primary Care Physician: Юлия Conti MD Reason For Visit: GI BLEED AND UTI Diagnosis Discharge Diagnosis (1) Hyponatremia: Status: Acute Code(s): E87.1 - Hypo-osmolality and hyponatremia (2) Urinary tract infection: Status: Acute Code(s): N39.0 - Urinary tract infection, site not specified (3) Gastrointestinal bleed: Status: Acute Code(s): K92.2 - Gastrointestinal hemorrhage, unspecified (4) Anemia: Status: Acute Code(s): D64.9 - Anemia, unspecified Medications at Discharge Home Medications clobetasol 0.05 % topical gel 1 applic topical DAILY 02/18/21 dicyclomine 10 mg capsule 10 mg PO BID PRN abdominal pain 01/22/25 hydroxychloroquine 200 mg tablet 200 mg PO QDAY 01/22/25 cholecalciferol (vitamin D3) 250 mcg (10,000 unit) capsule 250 mcg PO DAILY 07/09/25 clotrimazole 10 mg maicol 10 mg PO DAILY PRN skin irritation 07/09/25 dexlansoprazole 60 mg capsule,biphase delayed release 60 mg PO DAILY 07/09/25 furosemide 20 mg tablet 20 mg PO DAILY 07/09/25 Held on 07/10/25. Instructions: Resume on 07/12/25. cefdinir 300 mg capsule 300 mg PO BID #6 caps 07/10/25 Hospital Course Operations None Procedures None Summary of Care Provided Minutes Spent on Discharge: 31 Hospital Course: Per HPI: ANGEL OLIVER, is a 85 F who presents to the hospital with fatigue and weakness. She says that this started over the last couple days. She is unclear as to why though she thinks that it is because she has low iron despite the fact that in the beginning of May she had iron studies that showed an iron level of 91 with a saturation of 29% and a ferritin of 82. She also recently had an injection on her right hip for bursitis and is supposed to have another one tomorrow for her left hip. She also had an erythropoietin level drawn the end of May that was 6.1. B12 and folate were normal and TSH was 2.92 weeks ago. In the ER she is not a leukocytosis and is afebrile however her urine was positive for a UTI and given her age fatigue and weakness are associated with a UTI. She does also have hyponatremia and this may be due to some mild dehydration especially since she is on Lasix. Fecal occult in the ER also demonstrated positive blood though she states that she has a history of hemorrhoids. She is anemic to 9.3, at the end of May she was 11.8. Hospital Course: 1. Fatigue and weakness secondary to UTI with possible lower GI bleed and hyponatremia?85-year-old female with history of lower extremity edema presents to the hospital with weakness, fatigue, hyponatremia. Sodium is improved today with IV fluids and holding her Lasix. As for her UTI her UA is positive however urine culture still pending. She is feeling much better though and was asked to be discharged home today. Her hemoglobin was 11.8 at the end of May and is down to 9.2 today on the day of discharge though it is stabilized. She does not see any bright red blood or melena in her stool so this is more of a microscopic issue she does have a history of times of hemorrhoids. Will plan for her to follow-up with her PCP and with GI as an outpatient, I did discuss with her that if she has bright red blood per rectum or melena that she is to return to the hospital. She is on a PPI at baseline so we will continue this on discharge. Will continue with 3 more days of cefdinir she has received 2 days of Rocephin. Will hold her Lasix for 2 days to allow her sodium to recover and recommend outpatient follow-up to monitor her lab work including her anemia, sodium, and renal function. I discussed with her the plan for discharge she expressed understanding of the risks and benefits of going home and would like to go home today. 2. Diastolic cardiomyopathy with mild pulmonary hypertension, GERD her chronic medical conditions which complicate her care. Her home medications were continued where appropriate Physical Exam Narrative General: Alert, Oriented x3, Cooperative, No apparent distress HEENT: Atraumatic, PERRLA, EOMI, Normocephalic Oral: Moist Mucosa Neck: Supple, No JVD Lungs: Diminished, Normal air movement, No rhonchi, No wheeze, No rales Cardiovascular: Regular rate, Regular Rhythm, Normal S1, Normal S2, No murmurs Abdomen: Soft, Non Tender, Non-Distended, No Hepato-splenomegaly Extremities: Trace edema, Capillary Refill Less than 3 Seconds Skin: No rashes, No breakdown Musculoskeletal: No Tenderness to Palpation of Joints or Extremities Neurological: No focal neurological deficits, Motor Exam 5/5 strength throughout, Sensory exam intact to light touch and pain Psych/Mental Status: Normal Affect, Appropriate Weight / BMI Weight Weight: 144 lb 14.416 oz Body Mass Index (BMI) 27.3 ABG / Lab / Microbiology Data 07/10/25 11:51 07/10/25 06:06 Laboratory: Laboratory Results - last 24 hr 07/10/25 06:06: WBC 5.9, RBC 2.94 L, Hgb 9.0 L, Hct 26.1 L, MCV 88.8, MCH 30.6, MCHC 34.5, RDW Std Deviation 44.8 H, RDW Coeff of Janessa 13.8, Plt Count 264, MPV 9.0, Immature Gran % (Auto) 1.500 H, Neut % (Auto) 83.8 H, Lymph % (Auto) 6.0 L, [place] % (Auto) 7.5, Eos % (Auto) 0.9, Baso % (Auto) 0.3, Absolute Neuts (auto) 4.9, Absolute Lymphs (auto) 0.35 L, Nucleated RBC % 0, Sodium 129 L, Potassium 3.3, Chloride 92 L, Carbon Dioxide 29.1, Anion Gap 8, BUN 8, Creatinine 0.62 L, Estim Creat Clear Calc 46.24 L, Est GFR (MDRD) Non-Af 88, BUN/Creatinine Ratio 13.6, Glucose 91, Calcium 9.1 07/10/25 11:51: Hgb 9.2 L, Hct 25.8 L Microbiology: Microbiology 07/09/25 05:14 Mucosa - Nose SARS-CoV-2, Influenza & RSV (PCR) - Final 07/09/25 06:40 Stool Stool Occult Blood (MADDISON) - Final Occult Blood Positive D/C Instructions Call your doctor if you observe: Fever of 101 or Higher, Shortness of breath, Dizziness, Fainting spells, Swelling in the ankles, Chest pain and Increased palpitations (irregular heartbeat) DC O2, CPAP, BIPAP Needs Home O2 Discharge instructions: No Meaningful Use Info Meaningful Use Meaningful Use Diagnoses (Choose all that apply): None applicable Discharge Plan Admission Admit Date/Time: 07/09/25 07:26 Attending Provider: Sergio Paulino Primary Care Provider: Юлия Conti Instructions Additional Instructions / Restrictions: Follow-up with your PCP in 3 to 5 days, and obtain iron studies in about a month or 2. I do recommend to follow-up with GI for the slight GI bleeding likely secondary to your history of hemorrhoids. Discharge Orders/Prescriptions Prescriptions: New cefdinir 300 mg capsule 300 mg PO BID Qty: 6 0RF Continued dicyclomine 10 mg capsule 10 mg PO BID PRN (Reason: abdominal pain) clobetasol 0.05 % gel 1 applic TOPICAL DAILY hydroxychloroquine 200 mg tablet 200 mg PO QDAY cholecalciferol (vitamin D3) 250 mcg (10,000 unit) capsule 250 mcg PO DAILY dexlansoprazole 60 mg capsule,biphase delayed releas 60 mg PO DAILY clotrimazole 10 mg maicol 10 mg PO DAILY PRN (Reason: skin irritation) Held furosemide 20 mg tablet 20 mg PO DAILY Hold Instructions: Resume on 07/12/25. Referrals / Follow Up: Юлия Conti MD [Primary Care Provider] - Within 1 Week FriendShilo DO [Med Staff - Active Staff] - Within 1 Month (Lower GI bleed, h/o hemorrhoids) Disposition Disposition (needs filled in before D/C Order can be placed): Home, Self Care Charges/Coding Visit Charges Inpatient E&M: 64624 Disch Hosp >30min
[2025-07-10 13:50] VITALS: BP 148/74; PULSE 78; RESP 18; TEMP 36.5; O2SAT 98
--- NOTE | 2025-07-10 14:48 | PHA.DC.MR.R ---
Pharmacy [place] Med Reconciliation Pharmacy Service has performed discharge medication reconciliation for this patient. Medication education papers prepared, patient discharged before counseling was attempted. Medications reviewed. The patient's discharge medication list was reviewed for discrepancies and discrepancies were resolved. Medications at Discharge Home Medications clobetasol 0.05 % topical gel 1 applic topical DAILY 02/18/21 dicyclomine 10 mg capsule 10 mg PO BID PRN abdominal pain 01/22/25 hydroxychloroquine 200 mg tablet 200 mg PO QDAY 01/22/25 cholecalciferol (vitamin D3) 250 mcg (10,000 unit) capsule 250 mcg PO DAILY 07/09/25 clotrimazole 10 mg maicol 10 mg PO DAILY PRN skin irritation 07/09/25 dexlansoprazole 60 mg capsule,biphase delayed release 60 mg PO DAILY 07/09/25 furosemide 20 mg tablet 20 mg PO DAILY 07/09/25 Held on 07/10/25. Instructions: Resume on 07/12/25. cefdinir 300 mg capsule 300 mg PO BID #6 caps 07/10/25
== END 2025-07-10 14:20 | disposition home or self-care (01) ==
LOC: ED 07:36 → MS3 07-10 08:23
PROVIDERS: Admitting Provider Family Medicine; Emergency Provider Emergency Medicine; PCP Family Medicine; Visit Provider Family Medicine
DX: N39.0 Urinary tract infection, site not specified (principal); I27.20 Pulmonary hypertension, unspecified; I42.8 Other cardiomyopathies; R19.5 Other fecal abnormalities; E87.1 Hypo-osmolality and hyponatremia; I10 Essential (primary) hypertension; D64.9 Anemia, unspecified; E78.00 Pure hypercholesterolemia, unspecified; K21.9 Gastro-esophageal reflux disease without esophagitis; Z79.899 Other long term (current) drug therapy; E61.1 Iron deficiency; Z87.19 Personal history of other diseases of the digestive system
CPT/HCPCS: 36415; 74177; 80048; 80053; 81001; 82274; 83690; 84484; 85014; 85018; 85025; 85610; 85730; 87086; 87088; 87631; 93005; 96361; 96365; 96366; 96367; 96368; 97161; 97166; 99221; 99285; Q9967; A4216; G0378

== ENCOUNTER → 2025-07-28 | Outpatient (CLI) | payer MEDICARE, SELFPAY ==
[2025-07-28 12:42] LABS: Hematocrit 27.2 % (37-47); Hemoglobin 9.4 g/dL (12.0-15.0); Mean Corp Hgb Conc 34.6 g/dL (32-36); Mean Corpuscular Volume 90.1 fL (81-99); Mean Platelet Vol. 9.4 fl (6.2-12.0); Platelet Count 360 K/mm3 (150-450); RBC Distribution Width CV 14.8 % (11.6-14.6); RBC Distribution Width SD 47.7 fl (35.1-43.9); Red Blood Count 3.02 M/mm3 (4.2-5.4); White Blood Count 6.1 K/mm3 (4.4-11.0)
== END | disposition home or self-care (01) ==
LOC: MFPLAB 09:37
PROVIDERS: PCP Family Medicine; Referring Provider Family Medicine; Visit Provider Family Medicine
DX: D64.9 Anemia, unspecified (principal)
CPT/HCPCS: 36415; 85027

== ENCOUNTER → 2025-08-07 | Outpatient (CLI) | payer MEDICARE, SELFPAY | END | disposition home or self-care (01) | LOC: MFPLAB 09:44 | PROVIDERS: PCP Family Medicine; Referring Provider Family Medicine; Visit Provider Family Medicine | DX: N39.0 Urinary tract infection, site not specified (principal) | CPT/HCPCS: 87086; 87088 ==

== ENCOUNTER → 2025-08-18 | Outpatient (CLI) | payer MEDICARE, SELFPAY ==
[2025-08-18 18:49] LABS: Hematocrit 30.8 % (37-47); Hemoglobin 10.5 g/dL (12.0-15.0); Immature Granulocytes Count 0.040 X10^3/uL (0.0-0.0); Mean Corp Hgb Conc 34.1 g/dL (32-36); Mean Corpuscular Volume 92.2 fL (81-99); Mean Platelet Vol. 10.2 fl (6.2-12.0); NRBC Flagged by Analyzer 0 % (0-5); Platelet Count 338 K/mm3 (150-450); RBC Distribution Width CV 13.5 % (11.6-14.6); RBC Distribution Width SD 45.6 fl (35.1-43.9); Red Blood Count 3.34 M/mm3 (4.2-5.4); White Blood Count 7.0 K/mm3 (4.4-11.0)
[2025-08-18 19:06] LABS: AST(SGOT) 21 U/L (<=31); Alanine Aminotransfer ALT/SGPT 18 U/L (<=34); Albumin, Serum 4.3 g/dL (3.4-4.8); Alkaline Phosphatase 67 U/L (35-104); Bilirubin, Direct 0.16 mg/dL (0.00-0.30); Globulin 2.4 g/dL (2.2-4.2)
== END | disposition home or self-care (01) ==
LOC: MTLAB 14:15
PROVIDERS: PCP Family Medicine; Referring Provider Dermatology; Visit Provider Dermatology
DX: Z79.899 Other long term (current) drug therapy (principal)
CPT/HCPCS: 36415; 80076; 85025

== ENCOUNTER 2025-08-22 07:29 | Emergency (ER) | payer MEDICARE, SELFPAY ==
--- OUTSIDE RECORDS SUMMARY | 2025-05-22 10:03 | XMS RPT_ITS ---
Author Name Auto Generated Organization [facility] Care Team Providers Care Apartment Coordinator Name Role Phone PROVIDER, UNKNOWN Attending Unavailable PROVIDER, UNKNOWN Admitting Unavailable RUSSELL, MARKUS Referring Unavailable PROVIDER, UNKNOWN Admitting Unavailable RUSSELL, MARKUS Attending Unavailable JUAN C SARAVIA Referring Unavailable PROVIDER, UNKNOWN Admitting Unavailable RUSSELL, MARKUS Attending Unavailable PROVIDER, UNKNOWN Admitting Unavailable RUSSELL, MARKUS Referring Unavailable PROVIDER, UNKNOWN Attending Unavailable PROVIDER, UNKNOWN Attending Unavailable PROVIDER, UNKNOWN Admitting Unavailable RUSSELL, MARKUS Referring Unavailable PROVIDER, UNKNOWN Admitting Unavailable PROVIDER, UNKNOWN Attending Unavailable RUSSELL, MARKUS Referring Unavailable PROVIDER, UNKNOWN Admitting Unavailable RUSSELL, MARKUS Referring Unavailable PROVIDER, UNKNOWN Attending Unavailable RUSSELL, MARKUS Referring Unavailable RUSSELL, MARKUS Admitting Unavailable RUSSELL, MARKUS Attending Unavailable PROVIDER, UNKNOWN Admitting Unavailable RUSSELL, MARKUS Attending Unavailable PROVIDER, UNKNOWN Admitting Unavailable RUSSELL, MARKUS Attending Unavailable PROVIDER, UNKNOWN Admitting Unavailable RUSSELL, MARKUS Referring Unavailable PROVIDER, UNKNOWN Attending Unavailable PROVIDER, UNKNOWN Attending Unavailable PROVIDER, UNKNOWN Admitting Unavailable RUSSELL, MARKUS Referring Unavailable OLGA DE LUNA Attending Unavailable PROVIDER, UNKNOWN Admitting Unavailable RUSSELL, MARKUS Referring Unavailable PROVIDER, UNKNOWN Admitting Unavailable RUSSELL, MARKUS Attending Unavailable RUSSELL, MARKUS Referring Unavailable PROVIDER, UNKNOWN Admitting Unavailable PROVIDER, UNKNOWN Attending Unavailable MARKUS WELLS Referring Unavailable PROBLEMS DATE TYPE CONDITION / CODE ATTENDING STATUS JUAN RCE 10/28/2024 Active Dysphagia, oral phase / R13.11(ICD-10) Unknown Active [facility] 10/13/2024 Active Malignant neopla sm of mouth, 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(ICD-10) Unknown Active [facility] 11/03/2024 Active Dietary counseli ng and surveillance / Z71.3(ICD-10) Unknown Active [facility] 10/01/2024 Active Encounter for ot her preprocedural examination / Z01.818(ICD-10) Unknown Active [facility] 10/01/2024 Active 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 / D49.9(ICD-10) Unknown Active [facility] 10/01/2024 Active Body mass index (BMI) 24.0-24.9, adult / Z68.24(ICD-10) Unknown Active [facility] 09/26/2024 Active Lichen planus, u nspecified / L43.9(ICD-10) Unknown Active [facility] 09/24/2024 Active Malignant neopla sm of tongue, unspecified / C02.9(ICD-10) Unknown Active [facility] PROCEDURES No Procedure Records Found RESULTS TELEPHONE ENCOUNTER Observed: 08/12/2025 11:43 AM Status: COMPLETED Source: [facility] Canceled TELEPHONE ENCOUNTER Observed: 08/12/2025 10:12 AM Status: COMPLETED Source: [facility] Pt's daughter, Reva, called t o cancel today's procedure 08-12-25, pt is ill. Please call back to resched, . Thank you PROGRESS NOTES Observed: 05/22/2025 10:07 AM Status: COMPLETED Source: [facility] Follow Patient was identifie d by name and date of . Pharmacy updated Vital signs taken Patient in exam room ready for MD. Princess Ceron., MTA PROGRESS NOTES Observed: 05/22/2025 10:00 AM Status: COMPLETED Source: [facility] OTOLARYNGOLOGY - HEAD AND NE CK SURGERY CLINIC NOTE CHIEF COMPLAINT: No chief complaint on file. 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 Saravia). Now status post left partial glossectomy with primary closure on 10/13/2024, , pT1 Nx MX. Final path with negative margins and depth of invasion at most 2 mm. A discontinuous focus of mild dysplasia at the anterior margin Now status post in office biopsy and KTP laser excision of left RMT/ buccal lesion on 03/11/2025. Pathology was consistent with squamous mucosa with mild dysplasia and parakeratosis Interval History (05/22/25) Overall doing okay from a head and neck standpoint. She does report some [id number] pain and soreness from the prior biopsy and KTP laser. It has been improving but not completely resolved. Denies any bleeding. Tolerating a diet without any concerns. No new lesions or bumps in the neck. Unfortunately she was diagnosed with some spine related issues which she has been dealing with as well as lower extremity edema and started on Lasix Interval history (03/11/2025 Overall doing relatively well from a surgical standpoint. She reports some issues with swallowing especially with dry food and feels like it is getting stuck. She also reports that food is getting stuck to her teeth. Denies any new pain. Reports some occasional bleeding when she bites her tongue. No new lesions in the neck Initial HPI (09/26/24) Today, pt reports 7 month hx of left lateral tongue lesion since January. Recently s/p biopsy with Dr. Arguelles (zinc skimmer) c/w with invasive SCCa. She reports hx of oral lesions related to lichen planus but those typically go away. Denies any pain today but intermittently in nature. Reports some difficulty eating spicy foods but otherwise denies dysphagia. Denies fevers, chills, unintentionalweight loss, night sweats, otalgia, sore throat, oral bleeding, dysphagia, odynophagia, voice changes, shortness of breath, hemoptysis or new lesions/masses. Denies history of radiation or previous of head/neck surgery. Denies history of cardiac or pulmonary issues. Able to walk/up downstairs without issues. Not currently on any anticoagulation or antiplatelet therapy. Never smoker. Denies history of significant alcohol use. Past Medical/Surgical History: She has no past medical history on file. Her has a past surgical history that includes laryngoscopy (N/A, 10/13/2024) and glossectomy, partial (Left, 10/13/2024). Past Family/Social History: Her family history is not on file. She reports that she has never smoked. She has never used smokeless tobacco. She reports that she does not drink alcohol and does not use drugs. Medications/Allergies/Immunizations: Her current medication(s) include: [facility] Allergies: Amlodipine base, Losartan, Nitrofurantoin, Amitriptyline, Atorvastatin, Cardizem [diltiazem], Cortisone, Hydrochlorothiazide, Meloxicam, Morphine, Myrbetriq [mirabegron], Sodium fluoride, and Lidocaine, Immunizations: There is no immunization history on file for this patient. EXAM: Documented vital signs from today's visit reviewed. Physical exam including head and neck examination of the oral cavity, oropharynx, larynx, and hypopharynx including indirect mirror exam as well as inspection and palpation of the face, parotid and neck is remarkable for findings consistent with posttreatment postoperative changes and negative for new lesions, masses or lymphadenopathy. Status post left partial glossectomy s/p primary closure. Healing well. Soft to palpation with no endophytic lesions appreciated. Small area of leukoplakia along the left lateral tongue at posterior aspect of the prior surgery (slightly more noticeable today) Small area of leukoplakic changes near the left RMT with healing granulation at the prior biopsy (stable). No mucosal or granular/exophytic mass upon close inspection or palpation Good tongue mobility with no evidence of tethering and slight deviation to the left. Adequate speech Airway is adequate. No palpable cervical lymphadenopathy Pathologic Review: 03/11/2025 Final Diagnosis A. Mouth, Biopsy: Squamous mucosa with mild dysplasia and parakeratosis. Deeper levels are examined. . I certify that I personally conducted the diagnostic evaluation of the above specimen(s) and have rendered the final diagnosis(es). at 1601 ED 10/13/24 Final Diagnosis A. "Tongue, Left partial glossectomy" MINUTE FOCUS OF RESIDUAL WELL DIFFERENTIATED MICROINVASIVE SQUAMOUS CELL CARCINOMA (At most 2 mm in depth and span of 2 mm) in a background of residual moderate dysplasia in the surface mucosa, no residual in-situ carcinoma seen. All margins are free of malignancy and free of in situ carcinoma. A discontinuous focus of mild dysplasia present at anterior margin. . I certify that I personally conducted the diagnostic evaluation of the above specimen(s) and have rendered the final diagnosis(es). 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 Saravia). Now status post left partial glossectomy with primary closure on 10/13/2024, , pT1 Nx MX. Final path with negative margins and depth of invasion at most 2 mm. A discontinuous focus of mild dysplasia at the anterior margin. Consensus tumor board recommendation was for close observation Now status post in office biopsy and KTP laser excision of left RMT/ buccal lesion on 03/11/2025. Pathology was consistent with squamous mucosa with mild dysplasia and parakeratosis Overall doing well with no evidence of invasive disease. Small area of leukoplakia along the left lateral posterior tongue and near the left RMT (stable to slightly increased compared to the prior visit - no acute head and neck surgical intervention at this time but counseled patient that given her history and recent biopsy results, I would recommend repeat laser excision in 2 months -tentative plan for CT neck at 1 year postop or sooner as needed (tentative plan for September 2025 -okay to continue lichen planus medications prn -recommend close follow up with me in 2 months or sooner as needed Markus Wells MD Otolaryngology - Head and Neck Surgery [facility] Pager: [phone] TELEPHONE ENCOUNTER Observed: 03/18/2025 6:00 PM Status: COMPLETED Source: [facility] Brief ENT Telephone Note Called patient to discuss recent biopsy results, which showed Squamous mucosa with mild dysplasia and parakeratosis. Deeper levels are examined.. All questions answered and pt verbalized understanding of the plan with follow up on 05/22/25 Markus Wells MD Otolaryngology - Head and Neck Surgery [facility] Pager: [phone] ADDENDUM NOTE Observed: 03/11/2025 11:51 AM Status: COMPLETED Source: [facility] Addended by: MARKUS WELLS on: 03/11/2025 11:51 AM Modules accepted: Orders PATIENT INSTRUCTIONS Observed: 10:55 AM Status: COMPLETED Source: [facility] For pain you can take Tyleno l and Ibuprofen. For bad pain you can alternate these every 3 hours. Do not take additional Tylenol if you are taking Excedrine. Example of alternating Tylenol (Acetaminophen) and Ibuprofen: 12pm: Tylenol 3pm: Ibuprofen 6pm: Tylenol 9pm: Ibuprofen PROGRESS NOTES Observed: 03/11/2025 10:47 AM Status: COMPLETED Source: [facility] TIME OUT A "TIME OUT" was performed prior to the procedure using active communication to verify: Correct patient: Yes Correct Procedure/site: Yes KTP laser excision of oral lesion and punch biopsy Pt tolerated procedure well and without incident. PROGRESS NOTES Observed: 03/11/2025 10:17 AM Status: COMPLETED 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 Saravia). Now status post left partial glossectomy with primary closure on 10/13/2024, , pT1 Nx MX. Final path with negative margins and depth of invasion at most 2 mm. A discontinuous focus of mild dysplasia at the anterior margin Interval History (03/11/25) Overall doing relatively well from a surgical standpoint. She reports some issues with swallowing especially with dry food and feels like it is getting stuck. She also reports that food is getting stuck to her teeth. Denies any new pain. Reports some occasional bleeding when she bites her tongue. No new lesions in the neck Interval history (01/02/2025) Overall doing well. Tolerating diet without concerns. Denies any significant speech or articulation issues. She has been using topical clobetasol for her lichen planus. She recently bit her tongue but otherwise denies any recent bleeding, pain, new lesions or concerns Interval History (10/28/24) Overall doing well since surgery. Pain well controlled. Tolerating a diet. Speech and articulation improving after partial glossectomy. Denies any bleeding, fevers, chills. Initial HPI (09/26/24) Today, pt reports 7 month hx of left lateral tongue lesion since January. Recently s/p biopsy with Dr. Arguelles (zinc skimmer) c/w with invasive SCCa. She reports hx of oral lesions related to lichen planus but those typically go away. Denies any pain today but intermittently in nature. Reports some difficulty eating spicy foods but otherwise denies dysphagia. Denies fevers, chills, unintentionalweight loss, night sweats, otalgia, sore throat, oral bleeding, dysphagia, odynophagia, voice changes, shortness of breath, hemoptysis or new lesions/masses. Denies history of radiation or previous of head/neck surgery. Denies history of cardiac or pulmonary issues. Able to walk/up downstairs without issues. Not currently on any anticoagulation or antiplatelet therapy. Never smoker. Denies history of significant alcohol use. Past Medical/Surgical History: She has no past medical history on file. Her has a past surgical history that includes laryngoscopy (N/A, 10/13/2024) and glossectomy, partial (Left, 10/13/2024). Past Family/Social History: Her family history is not on file. She reports that she has never smoked. She has never used smokeless tobacco. She reports that she does not drink alcohol and does not use drugs. Medications/Allergies/Immunizations: Her current medication(s) include: @[facility]@ Allergies: Amlodipine base, Losartan, Nitrofurantoin, Amitriptyline, Atorvastatin, Cardizem [diltiazem], Cortisone, Hydrochlorothiazide, Meloxicam, Morphine, Myrbetriq [mirabegron], Sodium fluoride, and Lidocaine, Immunizations: There is no immunization history on file for this patient. EXAM: Documented vital signs from today's visit reviewed. Physical exam including head and neck examination of the oral cavity, oropharynx, larynx, and hypopharynx including indirect mirror exam as well as inspection and palpation of the face, parotid and neck is remarkable for findings consistent with posttreatment postoperative changes and negative for new lesions, masses or lymphadenopathy. Status post left partial glossectomy s/p primary closure. Healing well. Small area of leukoplakia along the left lateral tongue near the anterior margin and posterior margin (stable) Small area of leukoplakic changes near the left RMT (stable). No mucosal erythema or granular/exophytic appearance. Good tongue mobility with no evidence of tethering and slight deviation to the left. Adequate speech Airway is adequate. No evidence of palpable cervical lymphadenopathy Procedure Note: Procedure performed: Biopsy of left RMT lesion Pre-procedure Dx: Left RMT lesion Post-procedure Dx: Left RMT lesion Informed consent obtained. Procedure in Detail: Patient seated in chair. Using 2% lidocaine with epinephrine 1:100,000, the area around the RMT was injected. After an appropriate amount of time had passed, biopsies were taken of the lesion located at the RMT using a 3 mm punch biopsy. Silver nitrate was applied for hemostasis. The patient tolerated the procedure well. The specimen was placed in formalin and sent for pathology immediately. Complications: None Specimens/Cultures: None Disposition: Ambulatory Procedure Note: Procedure performed: KTP Laser treatment of left oral cavity, CPT 80859 Pre-procedure Dx: Oral cavity leukoplakia History of prior left lateral tongue SCCa s/p partial glossectomy with primary closure Post-procedure Dx: Same SURGEON: Markus Wells MD JAVA CONSULTANT: None Procedure in Detail: Patient seated in chair. Complications: None Specimens/Cultures: None Estimated Blood Loss: Minimal INDICATIONS AND CONSENT: 84 yo F never smoker with hx of lichen planus and now with left lateral tongue SCCa s/p outside biopsy. Now status post left partial glossectomy with primary closure on 10/13/2024, pT1 Nx MX. Final path with negative margins and depth of invasion at most 2 mm. She has a small area of leukoplakia along the left lateral anterior and posterior tongue and near the left RMT that may be all related to lichen planus versus dysplasia She therefore offered the aforementioned procedures. After the risks, benefits, indications and alternatives were discussed with the patient, they elected to proceed. Informed consent was obtained DESCRIPTION OF PROCEDURE: On 03/11/25, the patient was identified in the clinic and Informed consent obtained. After injection of 1% lidocaine with epinephrine 1:100,000, a surgeon initiated time out was performed. The eyes were protected were safety goggles for KTP laser use. An additional laser safety time out was performed. The anterior and posterior lateral tongue lesion as well as the RMT region was then treated with KTP laser with the following settings. KTP laser settings of 30 Coello, 15 ms pulse width, and 2 pulses/sec. The mucosal surface was then rubbed with a 4x4 gauze and then laser treatment repeated until the leukoplakic changes were absent. A total of 81 Joules was used. This concluded our procedure. The patient tolerated the procedure well without any apparent immediate post operative complications. Disposition: Ambulatory Pathologic Review: 10/13/24 Final Diagnosis A. "Tongue, Left partial glossectomy" MINUTE FOCUS OF RESIDUAL WELL DIFFERENTIATED MICROINVASIVE SQUAMOUS CELL CARCINOMA (At most 2 mm in depth and span of 2 mm) in a background of residual moderate dysplasia in the surface mucosa, no residual in-situ carcinoma seen. All margins are free of malignancy and free of in situ carcinoma. A discontinuous focus of mild dysplasia present at anterior margin. . I certify that I personally conducted the diagnostic evaluation of the above specimen(s) and have rendered the final diagnosis(es). 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 Saravia). Now status post left partial glossectomy with primary closure on 10/13/2024, , pT1 Nx MX. Final path with negative margins and depth of invasion at most 2 mm. A discontinuous focus of mild dysplasia at the anterior margin. Consensus tumor board recommendation was for close observation Overall doing well with no evidence of disease. Small area of leukoplakia along the left lateral anterior and posterior tongue and near the left RMT that may be all related to lichen planus versus dysplasia In office biopsy of the left RMT/buccal lesion performed today with KTP laser excision of the RMT lesion and small leukoplakic changes at the anterior and posterior aspect of the prior left partial glossectomy - we will plan to call patient with path results - appreciate WET CROWN BLOCKING OPERATOR evaluation and recommendations -tentative plan for CT neck at 1 year postop or sooner as needed -okay to continue lichen planus medications prn -recommend close follow up with me in 2 months or sooner as needed Markus Wells MD Otolaryngology - Head and Neck Surgery [facility] Pager: [phone] PROGRESS NOTES Observed: 03/11/2025 10:10 AM Status: COMPLETED Source: [facility] [place] Patient identfied by name an d date of Pharmacy updated Vital signs taken Patent in exam room ready for MD PATIENT INSTRUCTIONS Observed: 3:02 PM Status: COMPLETED Source: [phone] PROGRESS NOTES Observed: 01/02/2025 2:39 PM Status: COMPLETED Source: [facility] [place] OTOLARYNGOLOGY - HEAD AND NE CK SURGERY CLINIC NOTE CHIEF COMPLAINT: Chief Complaint Patient presents with follow up: follow up: status post left partial glossectomy HPI: Omaira Oliver is a 84 year old female with PMH significant for hx of lichen planus for 10 yrs who presents today, 01/02/2025, at the [facility] for follow up for 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 Saravia). Now status post left partial glossectomy with primary closure on 10/13/2024, , pT1 Nx MX. Final path with negative margins and depth of invasion at most 2 mm. A discontinuous focus of mild dysplasia at the anterior margin Interval History (01/02/25) Overall doing well. Tolerating diet without concerns. Denies any significant speech or articulation issues. She has been using topical clobetasol for her lichen planus. She recently bit her tongue but otherwise denies any recent bleeding, pain, new lesions or concerns Interval History (10/28/24) Overall doing well since surgery. Pain well controlled. Tolerating a diet. Speech and articulation improving after partial glossectomy. Denies any bleeding, fevers, chills. Initial HPI (09/26/24) Today, pt reports 7 month hx of left lateral tongue lesion since January. Recently s/p biopsy with Dr. Arguelles (zinc skimmer) c/w with invasive SCCa. She reports hx of oral lesions related to lichen planus but those typically go away. Denies any pain today but intermittently in nature. Reports some difficulty eating spicy foods but otherwise denies dysphagia. Denies fevers, chills, unintentionalweight loss, night sweats, otalgia, sore throat, oral bleeding, dysphagia, odynophagia, voice changes, shortness of breath, hemoptysis or new lesions/masses. Denies history of radiation or previous of head/neck surgery. Denies history of cardiac or pulmonary issues. Able to walk/up downstairs without issues. Not currently on any anticoagulation or antiplatelet therapy. Never smoker. Denies history of significant alcohol use. Past Medical/Surgical History: She has no past medical history on file. Her has a past surgical history that includes laryngoscopy (N/A, 10/13/2024) and glossectomy, partial (Left, 10/13/2024). Past Family/Social History: Her family history is not on file. She reports that she has never smoked. She has never used smokeless tobacco. She reports that she does not drink alcohol and does not use drugs. Medications/Allergies/Immunizations: Her current medication(s) include: @[facility]EDLISTP@ Allergies: Amitriptyline, Cardizem [diltiazem], Cortisone, Hydrochlorothiazide, Meloxicam, Morphine, and Myrbetriq [mirabegron], Immunizations: There is no immunization history on file for this patient. EXAM: Documented vital signs from today's visit reviewed. Physical exam including head and neck examination of the oral cavity, oropharynx, larynx, and hypopharynx including indirect mirror exam as well as inspection and palpation of the face, parotid and neck is remarkable for findings consistent with posttreatment postoperative changes and negative for new lesions, masses or lymphadenopathy. Status post left partial glossectomy s/p primary closure. Healing well. Small area of leukoplakia along the left lateral tongue near the anterior margin. Small area of leukoplakic changes near the left RMT. No mucosal erythema or granular/exophytic appearance. Good tongue mobility with no evidence of tethering and slight deviation to the left. Adequate speech Airway is adequate. Pathologic Review: 10/13/24 Final Diagnosis A. "Tongue, Left partial glossectomy" MINUTE FOCUS OF RESIDUAL WELL DIFFERENTIATED MICROINVASIVE SQUAMOUS CELL CARCINOMA (At most 2 mm in depth and span of 2 mm) in a background of residual moderate dysplasia in the surface mucosa, no residual in-situ carcinoma seen. All margins are free of malignancy and free of in situ carcinoma. A discontinuous focus of mild dysplasia present at anterior margin. . I certify that I personally conducted the diagnostic evaluation of the above specimen(s) and have rendered the final diagnosis(es). 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 Saravia). Now status post left partial glossectomy with primary closure on 10/13/2024, , pT1 Nx MX. Final path with negative margins and depth of invasion at most 2 mm. A discontinuous focus of mild dysplasia at the anterior margin. Consensus tumor board recommendation was for close observation Overall doing well with no evidence of disease. Small area of leukoplakia along the left lateral anterior tongue and near the left RMT that may be all related to lichen planus versus dysplasia -we discussed the management options at length and would recommend possible biopsy and KTP laser excision versus close observation. Given her history, would favor more aggressive approach with biopsy and KTP laser excision. We discussed the risks benefits and alternatives and patient was in agreement -okay for soft diet; appreciate WET CROWN BLOCKING OPERATOR evaluation and recommendations -tentative plan for CT neck at 1 year postop or sooner as needed -okay to continue lichen planus medications prn -recommend close follow up with me in 1-2 months for in office KTP laser excision. We will scheduled today Markus Wells MD Otolaryngology - Head and Neck Surgery [facility] Pager: [phone] PROGRESS NOTES Observed: 01/02/2025 1:44 PM Status: COMPLETED [facility] Patient was identified by beatrice me and date of . Pt triaged: health history, vital signs, allergies, medications, preferred pharmacy, reason for visit and complaints reviewed. Pt appearing in good health, no signs/symptoms of current distress. Patient at risk for falls: yes Falls Risk protocol implemented: yes PATIENT INSTRUCTIONS Observed: 1:17 PM Status: COMPLETED [facility] HOME PROGRAM/EDUCATION: Diet Recommendation: Regular Diet and Thin Liquids Exercises: - eating and drinking different consistencies as desired - effortful swallow - tongue exercises - move tongue forward, zygd-um-xrzn, up-down - tongue sweep around the teeth (upper, lower, inside, outside) Oral care: - clean mouth after each meal Dry mouth: - add sauce / moisture - alternate solid/liquids - take a sip of water with dry foods to help chewing PROGRESS NOTES Observed: 01/02/2025 12:57 PM Status: COMPLETED Source: [facility] SPEECH LANGUAGE PATHOLOGY OU TPATIENT DISCHARGE NOTE Location: [facility] Patient identified by patient stating name and date of . Payor: [employer] MEDICARE PFFS / Plan: [employer] MEDICARE [place]/HMO/PFFS / Product Type: Medicare Time In: 1:10pm Time Out: 1:43pm Duration: 33 minutes Session #: 02/02 RELEVANT HNC HISTORY Diagnosis: pT1 Nx MX left oral tongue squamous cell carcinoma 09/02/24 Biopsy Eroded and inflamed superficially invasive moderately well-differentiated SCCa 09/03/24 Imaging PET: No evidence of recurrent-metastatic viable neoplasm 10/13/24 Surgery left partial glossectomy with primary closure Chemotherapy Radiation Trach/PEG SUBJECTIVE: Patient subjective/goals: Patient arrives on time accompanied by her sister, who remains in the room throughout the session. Patient reports that she bit her tongue yesterday when chewing, is now bruised but with minimal pain/discomfort. Reports that food is sticking to her teeth during/after meals. Brushing teeth 2x/day. Dry mouth. Tried Biotene swish - gave relief but caused rawness/soreness of tongue. Hydration: aiming to increase toward 5-6 16oz glasses but typically closer to 3-4. Pain: none reported Scale (if yes): n/a Location: n/a OBJECTIVE: Short Term Goals: Patient will complete [id number] of effortful swallows to optimize oropharyngeal pressure in anticipation of dysphagia. --hasn't been doing very often lately --completes x3 independently, difficulty completing more d/t xerostomia --WET CROWN BLOCKING OPERATOR provides education/recommendations to complete at beginning of meals with boluses for 1-2 months to ensure strength regained Patient will participate in further swallow, speech, voice, trismus, and/or lymphedema evaluation as deemed clinically appropriate by the treating clinician. Current diet: Breakfast: jamaican muffin with jam Lunch: grilled cheese, soup/chili, vegetables Avoids: some meats, primarily for dietary reasons Performance Status Scale for Head and Neck Cancer Patients (PSS-HN) Normalcy of Diet 90- Full diet (liquid assist) Public Eating 75- No restrictions of place, but restricts diet when in public (eats anywhere, but may limit intake to less "messy" foods (e.g. liquids) Understandability of Speech 100- Always understandable Total List MA, Arsh Ya, Chano ESPINAL. A Performace Status Scale for Head and Neck Cancer Patients. Cancer. [id number], 1989. Cranial Nerve Quick Assessment: CN V - Trigeminal; Motor: WFL CN V - Trigeminal; Sensory: pt reports no numbness except tongue CN VII - Facial; Motor:WNL CN VII - Facial; Sensory: Patient reported mild reduction in strength of taste, may be age-related CN IX - Glossopharyngeal; Sensory: Patient reported mild reduction in strength of taste, may be age-related CN IX - Glossopharyngeal AND CN X - Vagus; Motor: WFL CN XI - Spinal Accessory; Motor: WFL CN XII - Hypoglossal; Motor: reduced/ protrusion initially but improves with additional effort ASSESSMENT: Patient seen for follow-up speech therapy appointment to target dysphagia. Excellent progress toward goals. Focus of session was on discussing strategies and HEP for patient to continue at home. Patient benefited from education regarding dry mouth management, residue management and swallowing strategies. Patient reports eating nearly normal diet with minimal difficulty. Plan to discharge at this time. Patient is welcome to return in the future if issues arise or swallowing/speech worsens. Provided pt with written and verbal HEP. PLAN: Continue POC Television Production Clerk Goals: 1. Patient will tolerate a PO diet without pulmonary compromise. HOME PROGRAM/EDUCATION: Diet Recommendation: Regular Diet and Thin Liquids Exercises: - eating and drinking different consistencies as desired - effortful swallow - tongue exercises - move tongue forward, akbs-ay-tywm, up-down - tongue sweep around the teeth (upper, lower, inside, outside) Oral care: - clean mouth after each meal Dry mouth: - add sauce / moisture - alternate solid/liquids - take a sip of water with dry foods to help chewing Arely Bates CCC-WET CROWN BLOCKING OPERATOR Speech-Language Pathologist TUMOR BOARD NOTE Observed: 11/05/2024 9:06 AM Status: COMPLETED Source: [facility] Cancer Type: General Tumor Board Note Provided by Kellen Hannon MD on 11/05/2024 Diagnosis: Oral cavity SCCa Tumor Board Type: ENT Brief Clinical Summary: 84 year old female with a 7 month hx of left lateral tongue lesion. Underwent biopsy with Dr. Arguelles (zinc skimmer) c/w with invasive SCCa before being referred to Dr. Wells. She has a hx of oral lesions related to lichen planus which typically are self resolving. On exam there was a small, superficial ulcerative lesion along the left lateral tongue, approx 2 x 3 mm with minimal depth of palpation with only subtle nodular component. Diffuse, scattered leukoplakic changes along the dorsal and lateral aspect of the left tongue as well as the buccal mucosa. Normal tongue protrusion and mobility with intact sensation. She went to the OR for partial glossectomy and primary closure. Imaging: Path: MINUTE FOCUS OF RESIDUAL WELL DIFFERENTIATED MICROINVASIVE SQUAMOUS CELL CARCINOMA (At most 2 mm in depth and span of 2 mm) in a background of residual moderate dysplasia in the surface mucosa, no residual in-situ carcinoma seen. All margins are free of malignancy and free of in situ carcinoma. A discontinuous focus of mild dysplasia present at anterior margin. General Information Patient name Omaira Oliver Date of / Age 6 1940 84 year old Staging Information Clinical Staging Discussed Yes [id number] oral cavity SCCa Pathologic Staging Discussed Yes Genetics Genetics Referral: No Genetic Testing Eligibility: Not applicable Treatment Recommendations Plan Surgery No further surgical intervention Chemotherapy No Radiation Therapy No Options and Eligibility for Supportive Care Services Discussed NA Clinical Trial Eligibility Discussed NA Treatment Plan NO further surgical or adjuvant therapy needed based on DOI; will continue to observe Multidisciplinary Team in Attendance at Tumor Board Radiology - Yes Medical Oncology- Yes Pathology- Yes Radiation Oncology- Yes Surgery- Yes Tumor Board Recommendations Observation NCCN Requirement NCCN Requirement Fulfilled? Yes The above recommendations were based on NCCN guidelines, as well as consideration of current national standards and review of the literature. PROGRESS NOTES Observed: 11/03/2024 10:30 AM Status: COMPLETED Source: [facility] Documentation: Mode: Telephone Patient Patient Work Phone: Patient Cell Preferred phone: [phone] Consent: I confirmed patient understanding of the risks and benefits of telehealth visits and obtained consent to proceed with the telehealth visit. 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 Wells Chief Complaint: "I'm doing better" Previous Goals Set/Progress 1. Aim to eat 6-8 small/frequent meals, eating every 2-3 hours 2. Include a protein source with all meals/snacks, goal for 80 grams/d 3. Okay to use liquid protein drinks between meals to help meet needs Assessment: Omaira Oliver is a 84 year old female No past medical history on file. Past Surgical History: Procedure Laterality Date GLOSSECTOMY, PARTIAL Left 10/13/2024 Procedure: GLOSSECTOMY, PARTIAL; Surgeon: Markus Wells MD; Location: [facility]; Service: Otolaryngology LARYNGOSCOPY N/A 10/13/2024 Procedure: LARYNGOSCOPY, DIRECT; Surgeon: Markus Wells MD; Location: [facility]; Service: Otolaryngology is allergic to amitriptyline, cardizem [diltiazem], cortisone, hydrochlorothiazide, meloxicam, morphine, and myrbetriq [mirabegron]. Medication: Current Outpatient Medications: diphenhydrAMINE-aluminum AND magnesium onhsqdzgz-ifyacwdomzl-zefjxmnzc viscous, Take 10 mL by mouth 3 times a day., Disp: 473 mL, Rfl: 0 senna (SENOKOT) 8.6 MG tablet, Take 1 Tablet by mouth daily as needed for Constipation for up to 7 days., Disp: 7 Tablet, Rfl: 0 chlorhexidine (PERIDEX) 0.12 % oral solution, Swish and spit 15 mL by mouth 3 times a day., Disp: 473 mL, Rfl: 1 Omiuxbd-Jzhknnomlrpzg-Nmwrazgh (EXCEDRIN ORAL), Take by mouth as needed., Disp: , Rfl: DICYCLOMINE HCL ORAL, Take by mouth as needed., Disp: , Rfl: amLODIPine (Norvasc) 5 MG tablet, Take 5 mg by mouth daily., Disp: , Rfl: Bromfenac Sodium 0.075 % SOLN, INSTILL 1 DROP IN RIGHT EYE DAILY. USE DAILY IN OPERATIVE EYE 3 DAYS PRIOR TO SURGERY AND DAILY AFTER SURGERY, Disp: , Rfl: atorvastatin (LIPITOR) 20 mg tablet, Take 20 mg by mouth at bedtime., Disp: , Rfl: Clobetasol Propionate 0.05 % GEL, APPLY TO LESION ON TONGUE/MOUTH 4 TIMES DAILY. DRY AREA BEFORE APPLYING. DO NOT EAT/DRINK/TALK 30 MINUTES AFTER APPLYING, Disp: , Rfl: hydroxychloroquine (PLAQUENIL) 200 MG tablet, , Disp: , Rfl: ofloxacin (OCUFLOX) 0.3 % ophthalmic solution, APPLY 1 DROP IN RIGHT EYE 4 TIMES A DAY. USE IN OPERATIVE EYE 4 TIMES A DAY STARTING 3 DAYS PRIOR TO SURGERY AND CONTINUE AFTER SURGERY, Disp: , Rfl: Vitamins/Minerals: Vitamin D3 Biochemical Data/Medical testing/Procedures: No results found for: "HBA1C" Lipids (last 3 years, up to 8 values) No lab values to display. BMP (last 3 years, up to 8 values) 10/01/2024 2:23 PM Na 141 K 3.3 Cl 103 CO2 28 Gap 13 Glu 102 BUN 27 Cr 0.77 Ca 9.6 eGFR 77 CBC (last 3 years, up to 8 values) 10/01/2024 2:23 PM WBC 8.9 RBC 3.81 Hgb 11.8 Hct 35.6 MCV 93 RDW 14.5 Plt 291 LFT's (last 3 years, up to 8 values) 10/01/2024 2:23 PM T Prot 6.9 Albumin 4.3 D Bili 0.12 T Bili 0.6 Alk Phos 51 ALT 10 AST 14 Anthropometric Measurements: Weight: 131# Height: 61" BMI: 24.9 UBW: 130# BP Readings from Last 1 Encounters: 10/28/24 133/80 Weight Change Since Last Visit: N/A Weight history: Wt Readings from Last 10 Encounters: 10/13/24 131 lb (59.4 kg) 10/01/24 131 lb 8 oz (59.6 kg) 09/26/24 129 lb 12.8 oz (58.9 kg) Food/Nutrition-Related History: Appetite: "better" Supplements: Premier Protein varies % supplement intake: 100% Provides: varies GI Sx: None Urine: Yellow Dentition: Own Teeth Allergies/Intolerance: None 24 Hour Recall: B: jamaican muffin (1), scrambled egg (1) Snack: none L: none Snack: none D: baked potato with cheese (1), broccoli (1/2 cup), turkey (1 piece) Snack: none Beverages: Premier Protein (2 bottles), water Nutrition Focused Physical Exam: Muscle loss: Taoism region: not assessed Clavicle region: not assessed Scapula region: not assessed Hand: not assessed Anterior thigh: not assessed Posterior calf: not assessed Fat loss: Orbital region: not assessed Tricep/bicep region: not assessed Rib/back region: not assessed Edema: not assessed Estimated Needs: 4815-7089 kcal/d 30-35 kcal/kg 77-89 g pro/d 1.3-1.5 g pro/kg 0866-3206 mL/d fluid Assessment for Malnutrition: Not at risk for malnutrition 84 y/o F with PMHx of lichen planus. Diagnosed with L lateral tongue SCCa s/p outside biopsy, tentatively staged as [id number]. Now s/p L partial glossectomy with primary closure 10/13. Pt reports she had lost ~10# in a week after surgery. Notes she lost a lot of muscle tone and was feeling very week. Since then, has gained ~5-6 pounds. Has been trying to eat mostly on R side of mouth as L side is filter tender. Appetite is good, endorses hunger at times. Taste has been good. Reports she has been having swelling in her legs/ankles/feet, scheduled to f/u with PCP in a few weeks. Encouraged pt to continue drinking protein shakes until able to eat a wider range of textures and more normal sized meals. Continue to follow as needed. Nutrition Diagnosis: 1. Increased nutrient needs kcal/pro r/t increased demand for nutrients AEB conditions associated with a diagnosis or treatment Nutrition Interventions: Recommend modifications (E-2.2) Monitoring/Goals: 1. Aim to eat 6-8 small/frequent meals, eating every 2-3 hours 2. Continue to include a protein source with all meals/snacks, goal for 80 grams/d 3. Continue to use liquid protein shakes to help meet needs Evaluation: Patient/Marshmallow Maker verbalized understanding: Yes The patient appears to have good understanding of the instruction given. Referrals: None Total time spent with patient-15 minutes, of which 15 minutes was spent counseling. MNT Time: 1 unit Visit Time: 2 of 3 approved visits SOURAV Myrick, RD, LD Pager [phone] PROGRESS NOTES Observed: 10/28/2024 2:46 PM Status: COMPLETED Source: [facility] [employer] [place] SPEECH LANGUAGE PATHOLOGY OU TPATIENT DAILY TREATMENT NOTE Location: [facility] Patient identified by patient stating name and date of . Payor: [employer] MEDICARE PFFS / Plan: [employer] MEDICARE [place]/HMO/PFFS / Product Type: Medicare Time In: 2:20pm Time Out: 2:43pm Duration: 23 minutes Session #: 01/05 SUBJECTIVE: Patient subjective/goals: Patient arrives on time for appointment accompanied by lzlboood-oq-uej. Patient reports overall improvements with swallowing and speech. Patient reports consuming softer solids such as mashed potatoes, sweet potatoes, and apple sauce Pain:no Scale (if yes): /10 Location: OBJECTIVE: Short Term Goals: Patient will complete [id number] of effortful swallows to optimize oropharyngeal pressure in anticipation of dysphagia. -- Patient recalls exercises and completes them as prescribed Patient will participate in further swallow, speech, voice, trismus, and/or lymphedema evaluation as deemed clinically appropriate by the treating clinician. -- administered CN assessment to evaluate functions on this date -- Clinical swallow evaluation: water (thin liquids), apple sauce (purees), shortbread cookie (mechanical soft) - Patient tolerated all consistencies with adequate lip closure and no overt signs or symptoms of airway invasion on this date - Drank 2 oz of water without pausing at end of session --Brief speech assessment and observation : very slight lisp with /s/ and /sh/, but does not seem to impact intelligibility at this time -- Left-cheek swelling observed and discussed with Patient Cranial Nerve Quick Assessment: CN V - Trigeminal; Motor: WFL CN VII - Facial; Motor:WFL; smile slightly deviates to left, lip pucker slightly diminished on left side CN IX - Glossopharyngeal AND CN X - Vagus; Motor: WFL CN XI - Spinal Accessory; Motor: WFL CN XII - Hypoglossal; Motor: WFL ASSESSMENT: Patient seen for follow up session targeting swallow function and speech intelligibility. Patient appears to continue to heal and improve with safe swallowing function and speech intelligibility. Observed a very mild lisp that is not consistently present. Patient participated in trials of water, applesauce, and shortbread cookies. Patient appears to be able to consume all consistencies without signs or symptoms of possible airway invasion. Discussed edema in left cheek in which Patient notices but believes is decreasing as she heals. Encouraged Patient to focus on advancing to regular solids and to continue to consume thin liquids as her HEP on this date rather than focusing on exercises. Patient in agreement with plan. PLAN: Continue POC Television Production Clerk Goals: 1. Patient will tolerate a PO diet without pulmonary compromise. HOME PROGRAM/EDUCATION: Diet Recommendation: Regular Diet and Thin Liquids Exercises: - eating and drinking different consistencies as desired Jonh Lees Parking Meter Mechanic Clinician I was present during the entire speech therapy session with patient. I directly supervised Jonh Lees and assisted her with the assessment, treatment, documentation and billing for this visit. I agree with her clinical decision making and have discussed the case with her. JOSHUA Saavedra, MA, CCC-WET CROWN BLOCKING OPERATOR Speech-Language Pathologist PROGRESS NOTES Observed: 10/28/2024 1:41 PM Status: COMPLETED Source: [facility] Patient was identified by na me and date of . Pharmacy updated Vital signs taken Patient in exam room ready for [facility]., JOSE PROGRESS NOTES Observed: 10/28/2024 1:35 PM Status: COMPLETED Source: [facility] OTOLARYNGOLOGY - HEAD AND NE [facility] SURGERY CLINIC NOTE CHIEF COMPLAINT: Chief Complaint Patient presents with Post-op Follow-up Follow up tongue HPI: Omaira Oliver is a 84 year old female with PMH significant for hx of lichen planus for 10 yrs who presents today, 10/28/2024, at the [facility] for follow up for 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 Saravia). Now status post left partial glossectomy with primary closure on 10/13/2024, , pT1 Nx MX. Final path with negative margins and depth of invasion at most 2 mm. A discontinuous focus of mild dysplasia at the anterior margin Interval History (10/29/24) Overall doing well since surgery. Pain well controlled. Tolerating a diet. Speech and articulation improving after partial glossectomy. Denies any bleeding, fevers, chills. Initial HPI (09/26/24) Today, pt reports 7 month hx of left lateral tongue lesion since January. Recently s/p biopsy with Dr. Arguelles (zinc skimmer) c/w with invasive SCCa. She reports hx of oral lesions related to lichen planus but those typically go away. Denies any pain today but intermittently in nature. Reports some difficulty eating spicy foods but otherwise denies dysphagia. Denies fevers, chills, unintentionalweight loss, night sweats, otalgia, sore throat, oral bleeding, dysphagia, odynophagia, voice changes, shortness of breath, hemoptysis or new lesions/masses. Denies history of radiation or previous of head/neck surgery. Denies history of cardiac or pulmonary issues. Able to walk/up downstairs without issues. Not currently on any anticoagulation or antiplatelet therapy. Never smoker. Denies history of significant alcohol use. Past Medical/Surgical History: She has no past medical history on file. Her has a past surgical history that includes laryngoscopy (N/A, 10/13/2024) and glossectomy, partial (Left, 10/13/2024). Past Family/Social History: Her family history is not on file. She reports that she has never smoked. She has never used smokeless tobacco. She reports that she does not drink alcohol and does not use drugs. Medications/Allergies/Immunizations: Her current medication(s) include: @CMEDLISTP@ Allergies: Amitriptyline, Cardizem [diltiazem], Cortisone, Hydrochlorothiazide, Meloxicam, Morphine, and Myrbetriq [mirabegron], Immunizations: There is no immunization history on file for this patient. EXAM: Documented vital signs from today's visit reviewed. Physical exam including head and neck examination of the oral cavity, oropharynx, larynx, and hypopharynx including indirect mirror exam as well as inspection and palpation of the face, parotid and neck is remarkable for findings consistent with posttreatment postoperative changes and negative for new lesions, masses or lymphadenopathy. Healing well. Lateral tongue Incisions clean, dry and intact with mild granulation tissue present. Remnant Vicryl sutures removed. No purulence, dehiscence, or fluctuance appreciated on exam. Good tongue mobility with no evidence of tethering and slight deviation to the left. Adequate speech Airway is adequate. Pathologic Review: 10/13/24 Final Diagnosis A. "Tongue, Left partial glossectomy" MINUTE FOCUS OF RESIDUAL WELL DIFFERENTIATED MICROINVASIVE SQUAMOUS CELL CARCINOMA (At most 2 mm in depth and span of 2 mm) in a background of residual moderate dysplasia in the surface mucosa, no residual in-situ carcinoma seen. All margins are free of malignancy and free of in situ carcinoma. A discontinuous focus of mild dysplasia present at anterior margin. . I certify that I personally conducted the diagnostic evaluation of the above specimen(s) and have rendered the final diagnosis(es). 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 Saravia). Now status post left partial glossectomy with primary closure on 10/13/2024, , pT1 Nx MX. Final path with negative margins and depth of invasion at most 2 mm. A discontinuous focus of mild dysplasia at the anterior margin -reviewed the pathology findings length with the patient. -we will plan to discuss at our multidisciplinary head AND neck tumor board Conference for consensus adjuvant recommendations -okay for soft diet; appreciate WET CROWN BLOCKING OPERATOR evaluation and recommendations -tentative plan for CT neck at 1 year postop or sooner as needed -okay to resume lichen planus medications in 2 weeks -recommend close follow up with me every 2 months for the 1st year and then 3 months in the 2nd year but could consider transitioning to alternating between me and Dr. Saravia at [facility] Markus Wells MD Otolaryngology - Head and Neck Surgery [facility] Pager: [phone] TELEPHONE ENCOUNTER Observed: 10/19/2024 4:57 PM Status: COMPLETED Source: [facility] [employer] [place] Brief ENT Telephone Note Called patient to discuss recent pathology results on 10/17/24, which showed Final Diagnosis A. "Tongue, Left partial glossectomy" MINUTE FOCUS OF RESIDUAL WELL DIFFERENTIATED MICROINVASIVE SQUAMOUS CELL CARCINOMA (At most 2 mm in depth and span of 2 mm) in a background of residual moderate dysplasia in the surface mucosa, no residual in-situ carcinoma seen. All margins are free of malignancy and free of in situ carcinoma. A discontinuous focus of mild dysplasia present at anterior margin. . I certify that I personally conducted the diagnostic evaluation of the above specimen(s) and have rendered the final diagnosis(es). at 1545 We will plan for close observation and no additional treatment or surgery at this time based on the final pathology. Patient doing well overall. Pain improving and able to tolerate p.o.. Denies any fevers, chills, purulence or oral bleeding We will continue with scheduled appointment on 10/28/2024. All questions answered and pt verbalized understanding of the plan. Markus Wells MD Otolaryngology - Head and Neck Surgery [facility] Pager: [phone] TELEPHONE ENCOUNTER Observed: 10/14/2024 8:31 AM Status: COMPLETED Source: [facility] [place] Omaira from [facility] in [place] called to verify pt information and to contact pt in regards to BMX solution. TELEPHONE ENCOUNTER Observed: 10/13/2024 6:00 PM Status: COMPLETED Source: [facility] [place] What is the need: Situation: pts daughter reporting her mother did not receive the BMX mouth wash because the pharmacy was out of the medication Background: s/p tongue surgery Assessment: n/a Recommendation: pts daughter advised that this RN will call the compound pharmacy in [place] and call in the prescription. Pts daughter verbalized understanding. Raquel Lee RN ANESTHESIA POSTPROCEDURE EVALUATION Observed: 10/13/2024 1:21 PM Status: COMPLETED Source: [facility] [place] Anesthesia Postoperative Ass essment: Vital Signs (most recent): BP 135/76 Pulse 74 Temp 36.6 ???C (97.9 ???F) (Temporal) Resp 11 Ht 5' 1" (1.549 m) Wt 131 lb (59.4 kg) SpO2 96% BMI 24.75 kg/m??? Anesthesia Post Evaluation Level of consciousness: awake Post-procedure exam normal. Body temperature, hydration status, PONV and pain evaluated and addressed. Pain management: adequate Hydration status: normal PONV:No nausea/vomiting reported Cardiopulmonary status stable Respiratory status: acceptable Cardiovascular status: acceptable ANESTHESIA NOTABLE EVENTS: No notable events documented. ANESTHESIA TRANSFER OF CARE Observed: 10/13/2024 12:35 PM Status: COMPLETED Source: [facility] Patient taken to PACU. Amie york was drowsy, comfortable, and stable on arrival. Anesthesia Transfer of Care Note Past Medical History: No past medical history on file. 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 Allergies: Amitriptyline, Cardizem [diltiazem], Cortisone, Hydrochlorothiazide, Meloxicam, Morphine, and Myrbetriq [mirabegron] Basic Operating Room Facts: Surgeon(s): Markus Wells MD Anesthesiologist: Marc Long MD CAA: Jovan Jaramillo CAA LARYNGOSCOPY, DIRECT (Throat) GLOSSECTOMY, PARTIAL (Left: Mouth) Intraoperative Events: No acute event ASA: 3 EBL: Not documented Urine Not documented Lactated Ringers and NaCl 0.9%: Fluid Totals (Filter: LR and NaCl 0.9% Medications Shown) Medication Calculated Total NaCl 0.9% 700 mL / 1 bag Cell Saver: Not documented Blood Volume Values: Blood Products None MTP Blood: MTP PRBC: Not documented MTP FFP: Not documented MTP PLT: Not documented MTP Cryo: Not documented MTP Whole Blood: Not documented Current Vasoactive Medications: {Vasoactive Medications: None Lines, Drains, Airways Peripheral IV Access: 10/13/24945 18 gauge Right Forearm (Active) Site Assessment WNL 10/13/24945 Infusion Status Port #1 Capped;Patent;Positive blood return 11/18/24 0946 Airway Insertion Details [REMOVED] Advanced Airway: ETT, Oral;Cuffed #6 (Removed) 10/13/24 1014 Pre-Oxygenation/ Induction: Mask Rapid Sequence Induction?: Mask Ventilation: Easy Blade Type: Mac Blade Size: 3 Visualization: Grade 2 Airway Type: ETT, Oral;Cuffed Airway Size: #6 Post Insertion Assessment: Confirmation: Equal bilateral breath sounds, CO2 confirmed # Attempts >1: Special Equipment: Present on Admission?: Previously Removed / Not Present: Removal Reason: Not Removed at Discharge: Removed 10/13/24 1227 Location (cm) 21 10/13/24 1014 Measured from: Lips 10/13/24 1014 Secured via: Taped 10/13/24 1014 All non-working IVs have been removed: N/A Laboratory Data: CBC (last 3 years, up to 8 values) 10/01/2024 2:23 PM WBC 8.9 RBC 3.81 Hgb 11.8 Hct 35.6 MCV 93 RDW 14.5 Plt 291 BMP (last 3 years, up to 8 values) 10/01/2024 2:23 PM Na 141 K 3.3 Cl 103 CO2 28 Gap 13 Glu 102 BUN 27 Cr 0.77 Ca 9.6 eGFR 77 Basic Metabolic Panel No lab values to display. INR (no units) Date Value 10/01/2024 1.01 No result for BNP LFT's (last 3 years, up to 8 values) 10/01/2024 2:23 PM T Prot 6.9 Albumin 4.3 D Bili 0.12 T Bili 0.6 Alk Phos 51 ALT 10 AST 14 Arterial Blood Gases None Hand off Completed: Yes 1. The patient was identified. 2. Pertinent medical history was relayed. 3. A brief discussion was had about any pertinent surgical/ procedural issues. 4. Intraoperative/ anesthetic management issue and concerns were discussed. 5. Plans for the early post-operative period relayed. 6. An opportunity for questions and acknowledgment of understanding of the report was received. Marc Long MD OP NOTE Observed: 10/13/2024 10:52 AM Status: COMPLETED Source: [facility] [place] Operative Report DATE OF SERVICE: 10/13/2024 PATIENT: Omaira Oliver PREOPERATIVE DIAGNOSIS: 1. 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 History of lichen planus POSTOPERATIVE DIAGNOSIS: 1. 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 History of lichen planus PROCEDURE: 1. Direct laryngoscopy, CPT 26183 2. Left partial glossectomy with primary closure, CPT 96745. SURGEON: Markus Wells MD JAVA CONSULTANT: Olga Jacobo MD ANESTHESIA: General ESTIMATED BLOOD LOSS: 10 mL COMPLICATIONS: None DISPOSITION: Stable to PACU INTRAOPERATIVE FINDINGS: 1. 2mm superficial tumor centered on the left lateral oral tongue with subtle nodularity likely at site of prior outside hospital biopsy; no discrete ulceration or endophytic component appreciated 2. Frozen section consistent with superficial invasive carcinoma, small foci with depth of invasion (DOI), approx 0.5 mm; all margins negative, approx 1 cm circumferentially and at deep margin 3. Wound closed primarily in anteroposterior direction SPECIMENS: 1. Left partial glossectomy with circumferential margins (frozen section with superficial invasive SCC versus carcinoma in situ, margins negative) INDICATIONS AND CONSENT Omaira Oliver is a 84 year old who presented to the Otolaryngology Head AND Neck Surgical Oncology clinic with biopsy showing invasive SCC of left tongue lesion. It was recommended to undergo a partial glossectomy with possible neck dissection pending depth of invasion. After the risks, benefits, indications and alternatives were discussed, they elected to proceed. Risks discussed included but were not limited to bleeding, infection, pain, need for further surgery, recurrence, voice and articulation changes, swallowing difficulty, facial nerve weakness, shoulder weakness and pain, tongue weakness, and scar. Informed consent was obtained. PROCEDURE: On 10/13/24, the patient was identified in the preoperative area, consent confirmed, and transported to the OR. They were transferred to the OR table in a supine position. After induction of general anesthesia, a surgeon initiated time out was performed. The bed was rotated 180 degrees. he eyes were protected. We then outlined our planned incision in a well hidden skin crease which was then infiltrated with 1% lidocaine with 1:100,000 epinephrine. After allowing for adequate vasoconstrictive and anesthetic effects, the patient was then prepped and draped in the usual sterile fashion. The oral cavity was first examined and palpated. The laryngoscope was then atraumatically inserted into the oral cavity and examination of the oral cavity, oropharynx, hypopharynx and larynx was performed in a sequential manner at that time. Examination of these areas revealed the known tongue lesion, no other abnormalities noted. We then began with resection of the tumor. A retracting suture was placed in the anterior tongue using a 2-0 silk. The area of concern was carefully identified, palpated, and examined and an incision was designed around this that encompassed a 1cm margin. Mucosal incision were then made and dissection carried out into the tongue musculature, until we reached a 1 cm deep margin. This allowed for release of the specimen, which was examined and found to have excellent margins. The specimen was oriented and sent off for permanent pathologic analysis. Hemostasis was attained. Examination of the wound revealed a 2cm x 2cm defect. The oral cavity and oropharynx was then copiously irrigated with normal saline. Given margins were negative and there was at most only superficial invasion noted with DOI < 3 mm, decision was made not to perform the neck dissection. Thedefect was then closed primarily with 3-0 vicryl sutures in an anteroposterior This completed the procedure. The patient tolerated the procedure well without any complications. All counts were correct times two at the conclusion of the case. The patient was turned over to Anesthesia, extubated, and transferred to the PACU in stable condition. Dr. Wells was present for and participated in the entirety of the case. 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] Procedures: Partial glossectomy Direct laryngoscopy Surgeon(s): Surgeon(s): Markus Wells MD Staff: Scrub: Demarco Bellamy RN; Morelia Flanagan CST Financial Sales Manager Nurse: Radha Raymond RN Churn Drill Operator: Kellen Hannon MD; Olga Jacobo MD Anesthesia: General Anesthesiologist: Marc Long MD CAA: Jovan Jaramillo CAA Specimen(s): ID Type Source Tests Collected by Time Destination 1 : Left partial glossectomy, black stitch valenzuela anterior, white stitch valenzuela superior Tissue Tongue SPECIMEN FOR SURGICAL PATH Markus Wells MD 10/13/2024 1114 Estimated Blood Loss: 1cc Lines/Drains: Peripheral IV Access: 10/13/24945 18 gauge Right Forearm (Active) Site Assessment WNL 10/13/24945 Infusion Status Port #1 Capped;Patent;Positive blood return 10/13/24945 Findings: 2mm area of nodularity and likely site of prior biopsy on left lateral tongue approx 3cm back from tip, excised with 1cm margins and closed primarily in anteroposterior direction Frozen section consistent with superficial invasive carcinoma, small foci with DOI approx 0.5; all margins negative, approx 1 cm circumferentially and deep Complications: None Status at end of surgery: Stable Activity: Ad Ting Surgical wound class: Yes, wound was clean contaminated. Patient Class: Planned Extended Recovery. Is this a patient scheduled as an outpatient that needs to be admitted as an inpatient? No Dr. Wells was present in the OR for the critical portion of the procedure and procedure sign-out. Signed by Olga Jacobo MD 10/13/2024 12:28 PM BLOOD ATTESTATION Observed: 10/13/2024 9:57 AM Status: COMPLETED Source: [facility] [place] Blood Attestation: ATTESTATION OF INFORMED CONSENT FOR BLOOD: The transfusion of blood and/or blood components were discussed with the patient and/or legal accounting representative. The risks, benefits and alternatives were reviewed. Questions regarding blood transfusions were answered. The patient /or the patient's legal accounting representative agree with the plan for transfusion of blood and/or blood components. 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 Past Medical History: No past medical history on file. Past Surgical History: There is no previous surgical history on file. Medications: No current facility-administered medications for this encounter. Family History: No family history on file. Social History: Social History Socioeconomic History Marital status: Tobacco Use Smoking status: Never Smokeless tobacco: Never Substance and Sexual Activity Alcohol use: Never Drug use: Never Social Drivers of Health Financial Resource Strain: Low Risk (10/02/2024) Overall Financial Resource Strain (CARDIA) Difficulty of Paying Living Expenses: Not very hard Food Insecurity: No Food Insecurity (10/02/2024) Hunger Vital Sign Worried About Running Out of Food in the Last Year: Never true Ran Out of Food in the Last Year: Never true Transportation Needs: No Transportation Needs (10/02/2024) PRAPARE - Transportation Lack of Transportation (Medical): No Lack of Transportation (Non-Medical): No Allergies: Amitriptyline, Cardizem [diltiazem], Cortisone, Hydrochlorothiazide, Meloxicam, Morphine, and Myrbetriq [mirabegron] Vitals Signs: BP 156/81 (BP Location: right arm) Pulse 70 Temp 97.7 ???F (36.5 ???C) (Oral) Resp 18 Ht 5' 1" (1.549 m) Wt 131 lb (59.4 kg) SpO2 98% BMI 24.75 kg/m??? ROS: Denies fever, chills, chest pain, SOB, palpitations. Objective Physical Exam: Gen: well appearing Eyes: EOM's intact Pulm: chest rise symmetric CV: well perfused Abd: Soft and non-tender Neuro: Awake, alert, oriented Skin: No gross or obvious abnormalities on visible skin Psych: alert and oriented to person, place and time Laboratory Values and Test Results: No results found for this or any previous visit (from the past 80388 hours). BMP (last 3 years, up to 8 values) 10/01/2024 2:23 PM Na 141 K 3.3 Cl 103 CO2 28 Gap 13 Glu 102 BUN 27 Cr 0.77 Ca 9.6 eGFR 77 Results for orders placed or performed in visit on 10/01/24 (from the past 8760 hours) HEPATIC FUNCTION PANEL Collection Time: 10/01/24 2:23 PM Result Value Ref Range Albumin 4.3 3.5 - 5.7 g/dL Bilirubin, Direct 0.12 0.03 - 0.18 mg/dL Bilirubin, Total 0.6 0.3 - 1.0 mg/dL Alkaline Phosphatase 51 34 - 104 IU/L ALT (SGPT) 10 7 - 52 IU/L AST (SGOT) 14 13 - 39 IU/L Protein, Total 6.9 6.0 - 8.3 g/dL ASSESSMENT AND PLAN Assessment: Omaira Oliver is a 84 year old female with Pre-Op Diagnosis Codes: * 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 Plan: I have personally reviewed the patient's medical history and performed the physical examination below immediately before the procedure. Medications, allergies, and pertinent laboratory and diagnostic tests were also reviewed at this time. Procedure is still indicated. Yes Seen an evaluated by Kellen Hannon MD. Discussed with attending Markus Wells MD. 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 Physical Exam Airway Mallampati: III TM distance: Not Adequate Micrognathia: Not present Jaw opening: Adequate Neck flexion: Adequate Dental PE (+) intact Pulmonary - pulmonary exam normal Comment: Chest clear to auscultation bilaterally Cardiovascular - cardiovascular exam normal Comment: RRR with S1S2; no murmurs, gallops, or rubs Neuro - neurological exam normal Comment: Awake, alert, oriented, No motor deficits and sensation grossly intact Plan Anesthesia plan: general; (ETT) Anesthesia risks / alternatives discussed pre-op Questions answered / anesthesia plan accepted Past medical history, surgical history, allergies, and medications reviewed. Pertinent laboratory tests, EKG, imaging, and consults reviewed and I have personally seen and evaluated the patient, repeating roe portions of the history and physical examination. Attestation: Anesthesia options were discussed with the patient and/or legal accounting representative. The risks, benefits and alternatives were reviewed. Questions regarding anesthesia were answered. Patient and/or legal accounting representative knows such anesthetics and procedures may be performed by Resident physicians, Certified Anesthesiologist Assistants, or Certified Nurse Anesthetists under the supervision of a physician. The patient /or the patient's legal accounting representative agree with the plan for anesthesia. [facility] TUMOR BOARD NOTE Observed: 10/10/2024 7:38 AM Status: COMPLETED Source: [facility] Cancer Type: General Tumor Board Note Provided by Markus Wells MD on 10/10/2024 Diagnosis: T1 N0 left lateral tongue squamous cell carcinoma Tumor Board Type: ENT Brief Clinical Summary: 84-year-old female never smoker with history of lichen planus and now with newly diagnosed left lateral tongue squamous cell carcinoma status post outside biopsy General Information Patient name Omaira Oliver Date of / Age 6 1940 84 year old Staging Information Clinical Staging Discussed Yes Pathologic Staging Discussed NA Genetics Genetics Referral: No Genetic Testing Eligibility: Not applicable Treatment Recommendations Plan Surgery Plan for partial glossectomy with possible staged selective neck dissection depending on the depth of invasion Chemotherapy Not Applicable Radiation Therapy N/a Options and Eligibility for Supportive Care Services Discussed Yes -referrals to social work, nutrition and WET CROWN BLOCKING OPERATOR Clinical Trial Eligibility Discussed NA Treatment Plan Surgery Multidisciplinary Team in Attendance at Tumor Board Radiology - Yes Medical Oncology- Yes Pathology- Yes Radiation Oncology- Yes Surgery- Yes Tumor Board Recommendations Plan for partial glossectomy with possible staged selective neck dissection depending on the depth of invasion NCCN Requirement NCCN Requirement Fulfilled? Yes The above recommendations were based on NCCN guidelines, as well as consideration of current national standards and review of the literature. ADDENDUM NOTE Observed: 10/07/2024 9:48 AM Status: COMPLETED Source: [facility] [place] Addended by: JOHAN GANT on: 10/07/2024 09:48 AM Modules accepted: Orders TELEPHONE ENCOUNTER Observed: 10/02/2024 3:59 PM Status: COMPLETED Source: [facility] Reached patient's daughter, who would like intermittent leave through the end of the year to be able to drive mother to appointments. Will fill out then attach via [employer] message. Also attempted to fax dental clearance for possible radiation therapy to Dr Omi Montoya, but fax failed multiple times. Attempted to reach office to obtain different fax number. Left message for them to call back with working fax number. Gardenia Gant RN TELEPHONE ENCOUNTER Observed: 10/02/2024 1:56 PM Status: COMPLETED Source: [facility] SW placed outreach call to P t following up on order received from Dr. Wells regarding adjustment to illness. SW completed needs assessment with Pt: Housing: Pt owns her home and has no concerns about housing. Financial: Pt is able to meet her basic living expenses. Pt stated that she watches her money closely. Food Insecurity: Denies Transportation: Pt's extended family will assist with transportation Support: Pt has strong family support. SW educated Pt on emotional support services provided by [facility], Pt declined referral. Pt denied having any needs. SW will remain available. Rocio Rosenberg FORMING ACID DUMPER, DIRECTOR OF INFORMATICS [id number] TELEPHONE ENCOUNTER Observed: 10/02/2024 9:12 AM Status: COMPLETED Source: [facility] Dedra Varner received the FML A and added to Combination Operator I did fill out the simple stuff, can you help with the clinical questions? Provider Section starts on page [address] Wells sign or I can catch him tomorrow here at Main. Thank you Please let me know if you need anything. PROGRESS NOTES Observed: 10/01/2024 3:00 PM Status: COMPLETED Source: [facility] Documentation: Mode: In Person ADULT NUTRITION ASSESSMENT Reason for Referral: Squamous Cell Carcinoma of Oral Cavity, Lichen Planus Referring Provider: Dr. Wells Chief Complaint: "I'm not sure why I have this appt" Assessment Client PMH: Omaira Oliver is a 84 year old female referred to Medical Nutrition Therapy to treat Oncology Nutrition. No past medical history on file. No past surgical history on file. is allergic to cortisone, meloxicam, and morphine. Medication: Current Outpatient Medications: amLODIPine (Norvasc) 5 MG tablet, Take 5 mg by mouth daily., Disp: , Rfl: Bromfenac Sodium 0.075 % SOLN, INSTILL 1 DROP IN RIGHT EYE DAILY. USE DAILY IN OPERATIVE EYE 3 DAYS PRIOR TO SURGERY AND DAILY AFTER SURGERY, Disp: , Rfl: atorvastatin (LIPITOR) 20 mg tablet, Take 20 mg by mouth at bedtime., Disp: , Rfl: Clobetasol Propionate 0.05 % GEL, APPLY TO LESION ON TONGUE/MOUTH 4 TIMES DAILY. DRY AREA BEFORE APPLYING. DO NOT EAT/DRINK/TALK 30 MINUTES AFTER APPLYING, Disp: , Rfl: hydroxychloroquine (PLAQUENIL) 200 MG tablet, , Disp: , Rfl: ofloxacin (OCUFLOX) 0.3 % ophthalmic solution, APPLY 1 DROP IN RIGHT EYE 4 TIMES A DAY. USE IN OPERATIVE EYE 4 TIMES A DAY STARTING 3 DAYS PRIOR TO SURGERY AND CONTINUE AFTER SURGERY, Disp: , Rfl: nystatin (MYCOSTATIN) [id number] UNIT/ML oral suspension, SWISH 5-10 ML IN MOUTH FOR 30 SECONDS THEN SPIT 5 TIMES PER DAY, Disp: , Rfl: Vitamins/Minerals: Vitamin D3 Biochemical Data/Medical testing/Procedures: No results found for: "HBA1C" Lipids (last 3 years, up to 8 values) No lab values to display. BMP (last 3 years, up to 8 values) No lab values to display. CBC (last 3 years, up to 8 values) No lab values to display. LFT's (last 3 years, up to 8 values) No lab values to display. Anthropometric Measurements: Weight: 131# Height: 61" BMI: 24.9 UBW: 130# BP Readings from Last 1 Encounters: 09/26/24 132/81 Weight history: Wt Readings from Last 10 Encounters: 09/26/24 129 lb 12.8 oz (58.9 kg) Food/Nutrition-Related History: Appetite: good Supplements: Premier Protein varies % supplement intake: 100% Provides: varies GI Sx: None Urine: Yellow Dentition: Own Teeth Allergies/Intolerance: None 24 Hour Recall: B: jamaican muffin with strawberry jam (1) Snack: none L: salad-lettuce/tomato/red pepper/avocado/almonds/cheese/mayonnaise (1 bowl) Snack: cheese stick (1) D: potato (1 whole), carrot (1), pot roast (2 slices) Snack: none Beverages: Premier Protein (1 bottle), water (2 bottles) Shopping and cooking: self Dining out: Less than once a week. Household size: 1 Food Assistance: None Adequate food supply and adequate cooking and storing equipment: all Social History: Substance use: none Smoking: none Alcohol: none Physical Activity: Aerobic (walking/swimming) Frequency: daily Duration: 1 mile Nutrition Focused Physical Exam: Muscle loss: Taoism region: slight depression Clavicle region: not visible/not prominent Scapula region: no depressions Hand: muscle bulges Anterior thigh: well rounded Posterior calf: well developed Fat loss: Orbital region: bulged fat pads Tricep/bicep region: ample fat tissue Rib/back region: chest full/ribs do not show Edema: none Estimated Needs: 9638-3197 kcal/d 30-35 kcal/kg 77-89 g pro/d 1.3-1.5 g pro/kg 5717-1769 mL/d fluid Assessment for Malnutrition: Not at risk for malnutrition 84 y/o F with PMHx of lichen planus. Diagnosed with L lateral tongue SCCa s/p outside biopsy, tentatively staged as [id number]. Scheduled for triple endoscopy, partial glossectomy possible flap/graft but likley primary closure vs. secondary intention pending final defect and possible selective neck dissection on 10/13. Pt states that she has been eating well and is currently hungry. Denies any pain or difficulties swallowing. Per WET CROWN BLOCKING OPERATOR, swallow is currently WNLs. No noted significant wt changes. believes pt will likely not need an NG post-op. Briefly reviewed with pt how tube feeding will be used post-op and at home. Educated pt on role of nutrition pre-op, focusing on meeting protein goals. Encouraged pt to have liquid protein shakes on hand to help meet needs when harder/thicker textures are harder to eat. All written materials provided. Continue to follow. Nutrition Diagnosis: 1. Increased nutrient needs kcal/pro r/t increased demand for nutrients AEB conditions associated with a diagnosis or treatment Nutrition Interventions: Initial/brief nutrition education Protein Food List Monitoring/Goals: 1. Aim to eat 6-8 small/frequent meals, eating every 2-3 hours 2. Include a protein source with all meals/snacks, goal for 80 grams/d 3. Okay to use liquid protein drinks between meals to help meet needs Evaluation: Patient/Marshmallow Maker verbalized understanding: Yes The patient appears to have good understanding of the instruction given. Referrals: None Total time spent with patient-30 minutes, of which 30 minutes was spent counseling. MNT Time: 2 units Visit Time: 1 of 3 approved visits SOURAV Myrick, RD, LD Pager [phone] PATIENT INSTRUCTIONS Observed: 4 2:53 PM Status: COMPLETED Source: [facility] On the morning of your surge ry, please take only the following medications, with a small sip of water: amLODIPine (Norvasc) 5 MG tablet Bromfenac Sodium 0.075 % SOLN atorvastatin (LIPITOR) 20 mg tablet Clobetasol Propionate 0.05 % GEL hydroxychloroquine (PLAQUENIL) 200 MG tablet ofloxacin (OCUFLOX) 0.3 % ophthalmic solution Do not take any Aspirin 7 days before surgery. Do not take any Ibuprofen, Aleve, Advil, or Motrin,Meloxicam,Naprosyn,Toradaol or any other NSAIDS 3 days before surgery. May take over the counter Acetaminophen (Tylenol) as needed for pain. Please hold all Vitamin E, [place] 3, fish oil and herbal supplements for 1 week prior to surgery. Please use this CHECKLIST to prepare for your surgery/procedure: Assume that any lab or testing done during your Pre-admission testing appointment is within normal limits unless otherwise contacted. Expect a call from LDR Holding one business day prior to surgery for surgery arrival time and location. Please plan to restart your medications the day after surgery unless otherwise explicitly instructed. Please contact your surgeon's/proceduralist's office for any surgical or recovery types of questions. CANCELLING YOUR SURGERY/PROCEDURE: If you get a cold, are not feeling well, or become , please call your surgeon's office as soon as possible. Refer to your "Preparing for Your Surgery/Procedure" booklet or [email or web address] if you have questions. Contact the Pre-Admission Testing department at [phone] or your surgeon's office with any questions that are not answered. Urine testing: Patients whose assigned sex at was female, and are starting puberty or beyond, will be urine tested for per hospital policy. Eating and drinking before surgery: Adult Patients: No food or drink for 8 hours prior to surgery check in time. Plain water is allowed up to 2 hours prior to your surgery arrival time. A sip of water with approved morning medications is acceptable. Enhanced Recovery After Surgery (ERAS), bariatric, and endoscopy/colonoscopy patients should follow their surgeon's/proceduralist's instructions for clear fluids prior to surgery. Pediatric Patients (under the age of 1212 years old): Patients are not to have solid food for 8 hours prior to coming for surgery. Patients can have infant formula or non-human milk (skim, 2%, whole, nut-milks, soy, etc.) 6 hours prior to coming for surgery. Patients can have breast milk up to 4 hours prior to coming for surgery. Patients can have clear liquids (water, flavored jacobson, Pedialyte) up to 2 hours prior to coming for surgery. ON THE DAY OF SURGERY: DO bring your ID, insurance card, medication list, and a small amount of crow for filling prescriptions and any medical co-pays. Do NOT wear any jewelry, (including rings, earrings, or mouth, tongue, or body piercings). Metal jewelry could cause constriction, amputation, or collado. Loose or bulky things in your mouth can be unsafe and result in breathing problems. DO bring glasses if you wear contacts and other assistance items such as oxygen, inhaler, cane, walker, etc. Do NOT bring valuables, credit cards, or large amounts of crow. Do NOT wear lotion or strong-smelling fragrance (perfume, cologne, cream or lotion). ARRANGE FOR A RIDE: If you are scheduled to go home the same day of surgery, a responsible adult MUST drive or accompany you home in a car, cab, shared ride service, or Metro-van. You will not be allowed to drive yourself home or travel home alone. Your surgery may be cancelled if you do not have a ride. A responsible adult must stay with you after surgery. Please call [employer] if you need transportation assistance or have concerns about going home [phone]. PEDIATRIC or ADOLESCENTS: Parents or a legal guardian must remain at the hospital during surgery. You will need to make childcare arrangements for your other small children to remain at home or bring an adult with you who can supervise them in the waiting area while you are with your child. Please bring legal guardianship papers with you if applicable. Patients who whose assigned sex at was female, and are starting puberty, will be tested for per hospital policy. SLEEP APNEA PATIENTS: Bring your sleep apnea machine and mask. PLEASE BE ON TIME. A late arrival may result in the cancellation/ delay of your surgery. Thank you for choosing [facility]; it is our pleasure to care for you. Post-op Nausea and Vomiting: A risk of anesthesia is nausea and/or vomiting (PONV). Certain patients are at higher risk than others. Talk to your anesthesiologist about the plan to minimize this risk. In general, it is best to start with only ice chips or small sips of water, then progress to clear, non-alcoholic fluids. You do not have to eat if you do not feel like it; fluids are the most important in the first 24 hours after surgery. If you start to eat, try bananas, applesauce, plain toast, saltine crackers, or broth; avoid fried or fatty foods. Make sure to eat something about 15 minutes before taking any pain medications. Seek medical attention for any prolonged PONV and signs of dehydration. If you would like more information regarding Advance Directives (Living Will, Health Care Power of Special Education Professor) please contact our Social Work Department at . CONFIRMATION ABO/RH Collected: 10/01/20 24 2:40 PM Status: F Source: THE [employer] [place] TYPE CODE TESTS RESULT OUT OF RANGE REFERENCE UNITS LAB I ABORH ABO RH TYPE A Positive LAB HXCHK ABORH/AB/TR HISTORY A Positive Performed By: #### ABORH ### # [facility] [address] [facility] [place], [address] PROGRESS NOTES Observed: 10/01/2024 2:30 PM Status: COMPLETED Source: [facility] Pre-Admission Testing Consul clarita Oliver, [id number] 84 year old Female 4Consult placed to [facility] by Dr. Wells. [facility] Triage Risk Score Total Score: 0.02 0.01 Patient's last A1C greater than 8.0 0.01 Patient's last Platelet Count is less than 100. Omaira Oliver is scheduled for LARYNGOSCOPY, DIRECT, (Left) GLOSSECTOMY, PARTIAL, Possible left selective neck dissection on 10/13/2024 at [facility]. Planned extended recovery. 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 Patient denies CP, shortness of breath, dizziness. Denies fevers, chills, or cold symptoms. RECENT ILLNESS: Serious illness or hospitalization within the last six months. No STOP BANG: STOP-BANG Row Name 10/01/24 1441 History of sleep apnea? 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 Social History Tobacco Use Smoking status: Never Smokeless tobacco: Never Substance Use Topics Alcohol use: Never Drug use: Never MEDICAL HISTORY: No past medical history on file. SURGICAL HISTORY: No past surgical history on file. 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 DICYCLOMINE HCL ORAL Take by mouth as needed. amLODIPine (Norvasc) 5 MG tablet Take 5 mg by mouth daily. Bromfenac Sodium 0.075 % SOLN INSTILL 1 DROP IN RIGHT EYE DAILY. USE DAILY IN OPERATIVE EYE 3 DAYS PRIOR TO SURGERY AND DAILY AFTER SURGERY atorvastatin (LIPITOR) 20 mg tablet Take 20 mg by mouth at bedtime. Clobetasol Propionate 0.05 % GEL APPLY TO LESION ON TONGUE/MOUTH 4 TIMES DAILY. DRY AREA BEFORE APPLYING. DO NOT EAT/DRINK/TALK 30 MINUTES AFTER APPLYING hydroxychloroquine (PLAQUENIL) 200 MG tablet ofloxacin (OCUFLOX) 0.3 % ophthalmic solution APPLY 1 DROP IN RIGHT EYE 4 TIMES A DAY. USE IN OPERATIVE EYE 4 TIMES A DAY STARTING 3 DAYS PRIOR TO SURGERY AND CONTINUE AFTER SURGERY No current facility-administered medications for this visit. HEIGHT: 5' 1" WEIGHT: Weight was 58.9 kg on 09/26/2024 BMI: 24.85 VITAL SIGNS: BP 142/80 Pulse 77 Temp 97.2 ???F (36.2 ???C) (Temporal) Resp 12 Ht 5' 1" (1.549 m) Wt 131 lb 8 oz (59.6 kg) SpO2 100% BMI 24.85 kg/m??? PAIN ASSESSMENT: Severity: 0 Location: N/A AIRWAY EXAM: Mallampati score: 3 TMD: Adequate Neck Extension/ Flexion: Adequate Mouth Opening: Adequate Dentition: Intact Micrognathia/Overbite: No FUNCTIONAL CAPACITY: 4-10 mets, typically walks 1 mile daily, has not been walking for a few weeks. 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] * Lichen planus [L43.9] LABS, TESTS, CONSULTS ORDERED: Orders AND Meds Signed During This Encounter Basic Metabolic Panel Complete Blood Count Type And Screen Hepatic Function Panel Confirmation ABO/Rh Partial Thromboplastin Time Prothrombin Time AND INR Cpqekhj-Shpyhrqejwgev-Llcllccq (EXCEDRIN ORAL) DICYCLOMINE HCL ORAL EKG 12 LEAD - PERFORM LABORATORY DATA: CBC (last 3 years, up to 8 values) 10/01/2024 2:23 PM WBC 8.9 RBC 3.81 Hgb 11.8 Hct 35.6 MCV 93 RDW 14.5 Plt 291 BMP (last 3 years, up to 8 values) 10/01/2024 2:23 PM Na 141 K 3.3 Cl 103 CO2 28 Gap 13 Glu 102 BUN 27 Cr 0.77 Ca 9.6 eGFR 77 Results for orders placed or performed in visit on 10/01/24 (from the past 8760 hours) HEPATIC FUNCTION PANEL Collection Time: 10/01/24 2:23 PM Result Value Ref Range Albumin 4.3 3.5 - 5.7 g/dL Bilirubin, Direct 0.12 0.03 - 0.18 mg/dL Bilirubin, Total 0.6 0.3 - 1.0 mg/dL Alkaline Phosphatase 51 34 - 104 IU/L ALT (SGPT) 10 7 - 52 IU/L AST (SGOT) 14 13 - 39 IU/L Protein, Total 6.9 6.0 - 8.3 g/dL PT/PTT/INR (last 3 years, up to 8 values) 10/01/2024 2:23 PM aPTT 29 INR 1.01 TESTS REVIEWED: I personally reviewed and interpreting and findings were: CXRay: No Chest x-ray found EKG: Normal sinus rhythm Normal ECG No previous ECGs available Confirmed by SOL ZUNIGA ([id number]) on 10/02/2024 3:01:32 PM ECHO: Echocardiogram date: Not Found Stress test date: Last StressTest: none found going back to 03/18/2012 Patient is medically optimized for surgery. This note will be forwarded to the referring provider. Patient should follow up with referring provider. Patient has been directed to discuss specific recovery questions with his/her surgeon/proceduralist. Visit activities: - preparing to see the patient (e.g., review of tests) - obtaining and/or reviewing separately obtained history - performing a medically appropriate examination and/or evaluation - counseling and educating the patiecounseling and educating the patient/family/caregivernt/family/caregiver - ordering medications, tests, or procedures - documenting clinical information in the electronic or other health record - independently interpreting results (not separately reported) and communicating results to the patient/family/caregiver - care coordination (not separately reported). Interviewer signature: REGINALD Mcghee 2:47 PM 10/01/2024 COMPLETE BLOOD COUNT Collected: 2:23 PM Status: F Source: THE [facility] TYPE CODE TESTS RESULT OUT OF RANGE REFERENCE UNITS LAB WBC WBC 8.9 4.5-11.5 K/uL LAB RBC RBC 3.81 Low 4.00-5.20 M/uL LAB HGB HGB 11.8 Low 12.0-15.0 g/dL LAB HCT HCT 35.6 Low 36.0-46.0 % LAB MCV MCV 93 80-100 fL LAB MCH MCH 31.0 26.0-34.0 pg LAB MCHC MCHC 33.1 32.0-35.9 g/dL LAB PLT PLT 291 150-400 K/uL LAB RDW RDW-CV 14.5 11.5-14.5 % LAB MPV MPV 8.9 7.5-11.2 fL Performed By: #### CBC #### [facility] [address] [place] [address], TYPE AND SCREEN Collected: 2:23 PM Status: F Source: [facility] TYPE CODE TESTS RESULT OUT OF RANGE REFERENCE UNITS LAB I ABORH ABO RH TYPE A Positive LAB ABSC INT ABSC INT Negative LAB HXCHK ABORH/AB/TR HISTORY No Previous Results Result Comment: Patient does not require a 2nd sample drawn prior to surgery date of 10/13/24. Specimen meets Blood Bank's Pre-Surgical Protocol and is valid within 30 days from date of collection but will at midnight on the day of approved Surgery. Performed By: #### TS #### [facility] [address] [place] [address], PARTIAL THROMBOPLASTIN TIME Collected: 10/01/2024 2:23 PM Status: F Source: [facility] TYPE CODE TESTS RESULT OUT OF RANGE REFERENCE UNITS LAB APTT APTT 29 25-37 sec Performed By: #### APTT, PT #### [facility] [address] [place] [address], PROTHROMBIN TIME AND INR Collected: 04/2024 2:23 PM Status: F Source: [facility] TYPE CODE TESTS RESULT OUT OF RANGE REFERENCE UNITS LAB PT PAT PROTIME 11.3 9.7-12.9 sec LAB INR INR 1.01 0.90-1.10 Performed By: #### APTT, PT #### [facility] [address] [place] [address], BASIC METABOLIC PANEL Collected: 2023 2:23 PM Status: F Source: THE [facility] TYPE CODE TESTS RESULT OUT OF RANGE REFERENCE UNITS LAB GLU GLU 102 74-109 mg/dL LAB NA3 NA 141 136-145 mmol/L LAB POT K 3.3 Low 3.5-5.0 mmol/L LAB CO2 CO2 28 21-31 mmol/L LAB CHLOR CL 103 98-107 mmol/L LAB BUN BUN 27 High 7-25 mg/dL LAB CREAT CREAT 0.77 0.60-1.20 mg/dL LAB CA CA 9.6 8.6-10.3 mg/dL LAB ANION GAP ANION GAP 13 10-20 LAB eGFR ESTIMATED GFR (CKD-EPI) 77 >=60 mL/min/1 .73sqm Result Comment: 2020 CKD EPI Equation using Creatinine without Race Comment: Estimated glomerular filtration rate (eGFR) is calculated without a race coefficient. Values should be interpreted in the context of the patient's full clinical presentation. Reference: 1. Dereck C, Evonne M, Cathy DC, et al.. A Unifying Approach for GFR Estimation: Recommendations of the NKF-ASN Task Force on Reassessing the Inclusion of Race in Diagnosing Kidney Disease. British Journal of Kidney Diseases 2021;79(2):268- 88.e1. 2. N Engl J Med 1 Vol. 385 Issue 19 Pages 3435-1614 Performed By: #### HEPATIC, CH8 #### [facility] [address] [place] [address], HEPATIC FUNCTION PANEL Collected: 10/01 2:23 PM Status: F [facility] [place] TYPE CODE TESTS RESULT OUT OF RANGE REFERENCE UNITS LAB ALB ALB 4.3 3.5-5.7 g/dL LAB DBILI DBIL 0.12 0.03-0.18 mg/dL LAB TBILI TBIL 0.6 0.3-1.0 mg/dL LAB ALKPHOS ALK 51 34-104 IU/L LAB ALT2 ALT 10 7-52 IU/L LAB AST2 AST 14 13-39 IU/L LAB tp TP 6.9 6.0-8.3 g/dL Performed By: #### HEPATIC, CH8 #### [facility] [address] [place], [address] PROGRESS NOTES Observed: 10/01/2024 12:52 PM Status: COMPLETED Source: THE [facility] SPEECH LANGUAGE PATHOLOGY OU TPATIENT SWALLOW EVALUATION Location: [facility] Clinic Patient was identified by patient stating name and date of . Time In: 0100pm Time Out: 0200pm Duration: 60 minutes Session #: 12/05 Payor: [facility] PFFS / Plan: [employer] MEDICARE [place]/HMO/PFFS / Product Type: Medicare Referring Provider: Dr. Wells Date of Onset: 09/26/2024 Speech Medical History: Patient referred for speech therapy evaluation given newly diagnosed head and neck cancer. 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 Current plan is for triple endoscopy, partial glossectomy possible flap[facility]graft but [facility] versus secondary intention pending final defect and possible selective neck dissection. Flexible fiberoptic nasopharyngolaryngoscopy 09/26/2024 Nasopharynx including Eustachian tubes AND fossae of Rosenmuller was unremarkable. Oropharynx including base of tongue AND vallecula was unremarkable. Hypopharynx AND endolarynx including epiglottis AND glottis were unremarkable. Airway was patent AND vocal folds were mobile bilaterally. No lesions or masses appreciated. Prior Level of Functioning: Patient is independent. Patient's vision is aided, hearing and ambulation are unaided. SUBJECTIVE: Patient subjective/goals: Patient arrives on time for appointment accompanied by her [id number]-fs-nrt. Pain: denies Scale (if yes): n/a Location: n/a OBJECTIVE: SWALLOWING Patient report: Patient reports choking episodes 3x in the last year (ie. Cupcake, bread, sweet potato). Patient reports really bad episode of heartburn as well. Patient reports she is a fast eater, but she has made herself slow down which has helped. Patient eats 3 small meals a day currently. Current Diet: Regular solids/ IDDSI 7 Regular and Thin liquids / IDDSI 0 Thin Solid intake recall: pot roast, potatoes, carrots, grilled cheese, salad (lettuce, tomato, red pepper, avocado), jamaican muffin with strawberry jam Liquid intake recall: water (1-16oz glass), trying to increase Weight: 30lb over 3 years, 5lb over the last month Feeding tube: no history, unlikely to need feeding tube per surgeon EAT - 10 To what extent are the following scenarios problematic for you? 0 = never 1 = almost never 2 = sometimes 3 = almost always 4 = always 1. My swallowing problem has caused me to lose weight. 0 2. My swallowing problems interferes with my ability to go out for meals. 0 3. Swallowing liquids takes extra effort. 1 4. Swallowing solids takes extra effort. 1 5. Swallowing pills takes extra effort. 2 6. Swallowing is painful. 0 7. The pleasure of eating is affected by my swallowing. 0 8. When I swallow food sticks in my throat. 1 9. I cough when I eat. 0 10. Swallowing is stressful. 0 TOTAL 5 Total >11 indicates functional daily impact. Cranial Nerve Quick Assessment: CN V - Trigeminal; Motor: WFL CN VII - Facial; Motor:WFL CN IX - Glossopharyngeal AND CN X - Vagus; Motor: WFL CN XI - Spinal Accessory; Motor: WFL CN XII - Hypoglossal; Motor: WFL Flexible Endoscopic Evaluation of Swallowing (FEES) Location: [facility] Reason for FEES: assess swallowing Pneumonia History: None Respiration: Room air Cognitive Status: Alert and Cooperative Previous VFSS/FEES: None Current Nutrition Avenue: PO diet Current Diet Consistencies: Regular Diet and Thin Liquids Flexible Endoscopic Evaluation of Swallowing (FEES) conducted by Madelyn Lackey M.S[facility]-WET CROWN BLOCKING OPERATOR. The WET CROWN BLOCKING OPERATOR verified that a FEES was the planned procedure for the day. The flexible endoscope was passed transnasal via right nare to evaluate the anatomy and physiology of swallowing. Pt tolerated the exam without difficulty. P.O. trials Potential PO trials include: Thin liquid, [place] thick, Honey thick, Puree, Mixed consistency and regular texture solid, simulated pill (I.e. Tic Tac) *A small volume of green food coloring was mixed with all liquids and foods. Nasopharyngoscopic findings Velopharyngeal function WNL; Contact of velum to nasopharyngeal wall achieved Anatomic findings Unremarkable Pharyngoscopic AND laryngoscopic findings Secretions WNL Color WNL Vocal fold motion Complete VF ab/adduction of the TVFs/arytenoids Pharyngeal Squeeze (high "ee") Present Anatomic findings All pharyngeal and laryngeal structures appreciated, symmetric, and mobile bilaterally. Unremarkable. ASPIRATION-PENETRATION SCALE (APS) 1 No penetration or aspiration Airway protected by primary larynx reflex closure, seal, AND squeeze 2 Penetration w/ protective reflex Material enters the laryngeal vestibule and cleared with a reflexive response: (a) closure of the larynx during initial swallowing event, (b) cough or throat clear, or (c) a reflexive swallow that immediately follows the initial event 3 Penetration w/o protective reflex Material enters the laryngeal vestibule and is NOT cleared with a reflexive response. These responses (larynx closure, cough/throat clear, or immediate reflexive swallow) may be insufficient to clear the larynx, or may not be triggered by material in the laryngeal vestibule 4 Aspiration w/ protective reflex Material enters the laryngeal vestibule, passes below the plane of the true vocal folds into the trachea stimulating a reflexive cough that successfully clears the aspirated material from the tracheal airway 5 Aspiration w/o protective reflex Material enters the laryngeal vestibule, passes below the plane of the true vocal folds into the trachea stimulating a reflexive cough that does NOT successfully clear the aspirated material from the tracheal airway, OR does NOT stimulate a protective cough response APS Scale Swallow Initiation Epiglottic Inversion Pharyngeal Residual Other Comments IDDSI 0 - Thin Liquid: straw 1 Vallecula Complete inversion WFL-Complete pharyngeal clearance Completed trials of small sips via straw 2x and large gulps via straw 2x. IDDSI 2 - Mildly Thick Liquid ([place]): tsp, cup, straw Not indicated IDDSI 3 - Moderately Thick Liquid (Honey): tsp, cup, straw Not indicated IDDSI 4 - Applesauce (Puree): 1 Vallecula Complete inversion Trace residue within or on the pharyngeal structures Completed trials of teaspoon 2x and heaping spoonful 1x. IDDSI 6 - [place] with liquid: Not evaluated IDDSI 7 - Cookie: 1 Prior to pharyngeal entry Complete inversion Trace residue within or on the pharyngeal structures Mastication period appeared prolonged, but complete for bolus formation. Completed trials with quarter squares of wilfrido crackers 2x. Pill with thin liquid via straw: 1 Vallecula Complete inversion WFL-Complete pharyngeal clearance Trials completed with tic tac and liquid wash via straw 2x. Diet Recommendation: Regular Diet and Thin Liquids Strategies: small bites and small sips Risk assessment regarding aspiration related pulmonary complications: Given relatively preserved pulmonary clearance, and bacteriological contents, but diminished immune response patient risk for aspiration related pulmonary complication currently appears low. Positive Impact Negative impact Pulmonary Clearance Medical Conditions (COPD, CHF, asthma) X Reduced function (reduced mobility/increased dependence for care) X Pulmonary health (h/o smoking, need for supplemental O2, need for inhaled medications) X Immune Response Nutritional Status X Medical co-morbidities X Presence of current infectious process X (tongue cancer) Bacteriological Contents Dependencies for oral care X Dental care/repair X Oral hygiene X Xerostomia X Diabetes X Acid Suppression therapy (PPI, H2 Blockers) X Total Dysphagia Risk Score (TDRS): not indicated at this time SPEECH AND VOICE Patient report: Patient denies speech changes and pain with speech. Diadochokinetics: WF for [facility] GRBASI The GRBASI scale is an auditory- perceptual evaluation method for the voice. (G= Grade, R= Roughness, B= Breathiness, A= Asthenia, S= Strain, I= Instability). The scale is 0-3; 0 indicates normal degree, 1 indicates mild degree, 2 indicates moderate degree, and 3 indicates severe degree of the characteristic. R: 1 B: 1 A: 0 S: 0 I: 0 ASSESSMENT: Diagnosis: anticipated dysphagia Impression: Omaira Oliver is an 84 year old adult who presents for a initial speech therapy evaluation today with emphasis on dysphagia. Patient has a recent diagnosis of tongue cancer and is expected to undergo resection with possible flap reconstruction and neck dissection. At this time, patient presents characteristics of a functional swallow and speech capabilities. A FEES was completed today, which showed a grossly WNL swallow function. FEES most remarkable for trace pharyngeal residual with solids, which is not concerning given patient age, respiratory status, and absence of airway invasion. Recommend diet of regular solids and thin liquids. Educated patient on diet recommendation, swallow strategies, anticipated decline in dysphagia, and prophylactic swallow exercises. Effortful swallow and lingual range of motion exercises given today. The patient appears to be a good candidate for swallow prehabilitation at this time; anticipate re-evaluation and rehabilitation needs at a later date. Patient and clinician in agreement with plan. Written HEP provided. PLAN: Treatment Modalities: Swallowing, ? Speech, Patient Education, Compensatory Strategies Frequency of Visits: no further visits pre-op, anticipate 1-3x/month post-op Duration: 6 months Patient scheduled with my colleague for post-op visit. Patient may benefit from establishing with WET CROWN BLOCKING OPERATOR in the [place] area at a later date given distance to this hospital from home. Custodial Goals: 1. Patient will tolerate a PO diet without pulmonary compromise. Short Term Goals: Patient will complete [id number] of effortful swallows to optimize oropharyngeal pressure in anticipation of dysphagia. Patient will participate in further swallow, speech, voice, trismus, and/or lymphedema evaluation as deemed clinically appropriate by the treating clinician. Prognosis: Good given + PLOF, - age, + support, + skilled intervention, + medical history HOME PROGRAM/EDUCATION: Diet Recommendation: Regular Diet and Thin Liquids Exercises: -effortful swallow [id number]/day -tongue range of motion Madelyn Lackey CCC-WET CROWN BLOCKING OPERATOR Speech Language Pathologist TELEPHONE ENCOUNTER Observed: 09/26/2024 4:06 PM Status: COMPLETED Source: [facility] Reached patient, who is noti fied of appts on 10/01 for Speech, PAT and nutrition. She will contact dentist to see them for radiation therapy clearance in the event that she needs it. Form sent to patient's dentist. Gardenia Gant RN PROGRESS NOTES Observed: 09/26/2024 9:15 AM Status: COMPLETED Source: [facility] [place] OTOLARYNGOLOGY - HEAD AND [facility] NOTE CHIEF COMPLAINT: Chief Complaint Patient presents with New patient, to establish relationship Tongue issues HPI: Omaira Oliver is a 84 year old female with PMH significant for hx of lichen planus for 10 yrs who presents today, 09/26/2024, at the [facility] at the request of Referring Provider: Juan C Saravia for my opinion and further evaluation of newly diagnosed left lateral tongue SCCa. Today, pt reports 7 month hx of left lateral tongue lesion since January. Recently s/p biopsy with Dr. Arguelles (zinc skimmer) c/w with invasive SCCa. She reports hx of oral lesions related to lichen planus but those typically go away. Denies any pain today but intermittently in nature. Reports some difficulty eating spicy foods but otherwise denies dysphagia. Denies fevers, chills, unintentionalweight loss, night sweats, otalgia, sore throat, oral bleeding, dysphagia, odynophagia, voice changes, shortness of breath, hemoptysis or new lesions/masses. Denies history of radiation or previous of head/neck surgery. Denies history of cardiac or pulmonary issues. Able to walk/up downstairs without issues. Not currently on any anticoagulation or antiplatelet therapy. Never smoker. Denies history of significant alcohol use. ROS: Constitutional: Negative for fever, chills, and weight loss overweight gain. Skin: Negative for rash, itchiness, dryness HENT: Negative for ear pain, sore throat and hoarseness. Negative for difficulty swallowing. Cardiovascular: Negative for chest pain and dyspnea on exertion (Can climb up 2 floors). Respiratory: Negative for shortness of breath and increased work of breathing. Gastrointestinal: Negative for nausea and vomiting. Neurological: Negative for headaches. Lymph/Heme: Negative for lymphadenopathy or easy bruising Musculoskeletal: Negative for joint or muscle pain Psychiatric: The patient is not nervous/anxious. All other systems are negative except for that listed in the HPI. Past Medical/Surgical History: She has no past medical history on file. Her has no past surgical history on file. Past Family/Social History: Her family history is not on file. She reports that she has never smoked. She has never used smokeless tobacco. Medications/Allergies/Immunizations: Her current medication(s) include: @CMEDLISTP@ Allergies: Cortisone, Meloxicam, and Morphine, Immunizations: There is no immunization history on file for this patient. PHYSICAL EXAM: Vital Signs: BP 132/81 (BP Location: right arm, BP position: sitting, Cuff Size: adult) Pulse 70 Temp 97.9 ???F (36.6 ???C) (Temporal) Resp 18 Ht 5' 1" (1.549 m) Wt 129 lb 12.8 oz (58.9 kg) SpO2 100% BMI 24.53 kg/m??? General: Well-developed, well-nourished. In no acute distress. Communication and Voice: Clear pitch and clarity Respiratory Respiratory effort: Equal inspiration and expiration without stridor Neuro: Appropriate mood and affect; Cranial nerves II-XII are intact Head and Face Inspection: Normocephalic and atraumatic without mass or lesion Palpation: Facial skeleton intact without bony stepoffs Facial Strength: Facial motility symmetric and full bilaterally Eyes: No nystagmus with normal extraocular motion bilaterally ENT External nose: No scar or anatomic deformity TMJ: No pain to palpation with full mobility Salivary Glands: No mass or tenderness Lips: No lesion. Oral cavity: Moist mucosa. Small, superficial ulcerative lesion along the left lateral tongue, approx 2 x 3 mm with minimal depth of palpation with only subtle nodular component. No endophytic mass appreciated. Diffuse, scattered leukoplakic changes along the dorsal and lateral aspect of the left tongue as well as the buccal mucosa. Normal tongue protrusion and mobility with intact sensation. Oropharynx: No mass or lesion. Tonsillar fossa symmetric. Base of tongue soft without mass or induration on palpationUnable to fully visualize larynx on indirect mirror laryngoscopy due to gag reflex Neck Trachea: Midline trachea. Thyroid: No mass or nodularity. Lymphatics: No palpable cervical lymphadenopathy. Procedure: Procedure: Flexible fiberoptic nasopharyngolaryngoscopy Indications: Need for detailed exam, hyperactive gag reflex, inadequate mirror visualization Surgeon: Markus Wells MD was present for the entirety of the procedure Procedure: After informed discussion of the risks, benefits, and alternatives, fiberoptic nasopharyngolaryngsocopy was recommended for the above indications, and the patient consented without further questions. Next, a flexible scope was easily advanced into the naris. Nasal cavities were unremarkable. Nasopharynx including Eustachian tubes AND fossae of Rosenmuller was unremarkable. Oropharynx including base of tongue AND vallecula was unremarkable. Hypopharynx AND endolarynx including epiglottis AND glottis were unremarkable. Airway was patent AND vocal folds were mobile bilaterally. No lesions or masses appreciated. The scope was withdrawn atraumatically. The patient tolerated the procedure well without complications. Pathologic Review: Radiologic Review: PET (09/23/24), personally reviewed Laboratory/Other Studies: N/a ASSESSMENT/PLAN: 84 yo F never smoker with hx of lichen planus and now with left lateral tongue SCCa s/p outside biopsy, tentatively staged as [id number] I reviewed with Ms. Oliver that recommended treatment for the majority of oral malignancies include a sequential approach involving surgery to resect primary tumor, and hence I recommended that. I also reviewed the role of selective neck dissection as a possible part of treatment pending DOI. Surgery, if elected, would involve triple endoscopy, partial glossectomy possible flap/graft but likley primary closure versus secondary intention pending final defect and possible selective neck dissection. The possibility of postoperative adjuvant radiation therapy and possibly even chemotherapy was reviewed and would depend upon histopathologic results, for example if advanced or adverse features were identified . Alternatively, I reviewed the option of primary non-surgical therapy including radiation therapy in organ preservation format although for oral tumors this would be less standard. I also reviewed that with nonsurgical therapy that even if successful from an oncologic standpoint that there can still be significant negative functional consequences in a substantial percentage of patients which could be long-term or permanent. Referral to radiation oncology was offered should the patient wish to discuss or pursue nonsurgical options further. Finally, I reviewed the option of no treatment but did not recommend this and explained the risks of no treatment including likely continued growth and progression of disease, development of increasing symptoms, and ultimately life-threatening consequences including which the patient would need to accept if opting for no treatment. I also discussed that no matter which treatment type is elected that neither oncologic cure nor functional/cosmetic outcome can be guaranteed. I reviewed with patient risks, benefits, alternatives, and possible outcomes of surgery/treatment including but not limited to: bleeding, infection, risk of recurrence in the future, scar formation/cosmetic deformity, poor wound healing/wound breakdown, possible need for additional treatment if the future such as further surgery, radiation, and/or chemotherapy, as well as general risks including heart attack, stroke and . Risks relating to tongue/oral cavity resection were reviewed including swallowing/speech dysfunction, numbness, pain, motion impairment, tongue tethering, salivary fistula and hemorrhage. I did also review the possibility of tracheostomy and/or feeding tube as adjunctive measures which if carried out, are typically temporary in most patients, although the possibility of long-term need though unlikely was also discussed. Risks and possible outcomes specifically relating to neck dissection were also reviewed including potential for single or multiple cranial nerve deficits resulting in weakness and/or numbness of the face, tongue, shoulder, and/or neck, lymphatic fistula, change in neck contour/deformity. Risks and possible outcomes relating to free flap reconstruction were reviewed including potential for partial or total free flap failure, need for revision, as well as donor site complications. Potential for donor site complications were reviewed including neurologic and/or vascular compromise of the arm/hand, tendon exposure/infection/poor healing, likely need for skin graft to the forearm donor site, skin graft failure, arm/hand numbness, loss or reduced use of arm/hand, chronic pain/discomfort, deformity/scar. After review of the various options, Ms. Oliver has opted to proceed with surgery as part of her overall management which I believe is reasonable for her condition. We will hence proceed with scheduling surgery in the near future as well as order appropriate preoperative testing and evaluation prior to surgery. I believe that Ms. Oliver has a good understanding of the issues involved and I answered all of her questions. - Will obtain OSH pathology report for review here at [facility] [place] - Will obtain OSH CT Neck w/ contrast scheduled for 10/03/24 - Referrals placed for WET CROWN BLOCKING OPERATOR, nutrition, and social work team -Discussed role for dental clearance as counseled pt that may require adjuvant treatment, low likelihood given clinical exam but would still recommending discussing with local dentist prior to surgery in the event that any dental extractions are required - Will add on for [facility] N multidisciplinary tumor board -case request placed and will need pre-op clearance; will try to arrange same day as WET CROWN BLOCKING OPERATOR martha Thank you so much for allowing me to participate in the care of this patient. Please feel free to contact me if you have any questions or concerns. Markus Wells MD Otolaryngology - Head and Neck Surgery [facility] Pager: [phone] TELEPHONE ENCOUNTER Observed: 09/17/2024 3:00 PM Status: COMPLETED Source: [facility] [place] Pt called back- she is ok wi th appt. also made aware to call [facility] and confirm the PET and CT pt agreed and ok with seeing Dr. Wells on 09/26 TELEPHONE ENCOUNTER Observed: 09/17/2024 10:37 AM Status: COMPLETED Source: [facility] Hello. Just want to let you guys know we received a referral from [facility] for this pt. Please see [facility] available would be 09/30 Let me know if that is ok Thank you ALLERGIES DATE TYPE / CODE NAME / CODE REACTION SEVERITY SOURCE 03/11/2025 DRUG INGREDI/41 8649220(SN OMED CT) ATORVASTATIN [facility] 03/11/2025 DRUG INGREDI/41 [id number](SN OMED CT) SODIUM FLUORIDE [facility] 10/01/2024 DRUG INGREDI/41 [id number](SN OMED CT) AMITRIPTYLINE FAINT FEELIN [facility] 10/01/2024 DRUG INGREDI/41 [id number](SN OMED CT) DILTIAZEM FAINT FEELIN [facility] 10/01/2024 DRUG INGREDI/41 [id number](SN OMED CT) MIRABEGRON FAINT FEELIN [facility] 09/26/2024 DRUG INGREDI/41 [id number](SN OMED CT) CORTISONE [facility] 09/26/2024 DRUG INGREDI/41 [id number](SN OMED CT) MELOXICAM [facility] 09/26/2024 DRUG INGREDI/41 [id number](SN OMED CT) MORPHINE [facility] 09/03/2019 DRUG INGREDI/41 [id number](SN OMED CT) LIDOCAINE Mild (Qualifier Value) [facility] 06/07/2019 DRUG INGREDI/41 [id number](SN OMED CT) HYDROCHLOROTHIAZIDE OTHER [facility] 02/21/2017 DRUG INGREDI/41 [id number](SN OMED CT) NITROFURANTOIN OTHER Severe (Severity Modifier) (Qualifier Value) [facility] 01/03/2017 DRUG INGREDI/41 7006710(SN OMED CT) AMLODIPINE BASE NAUSEA Severe (Severity Modifier) (Qualifier Value) [facility] 01/03/2017 DRUG INGREDI/41 [id number](SN OMED CT) LOSARTAN Severe (Severity Modifier) (Qualifier Value) [facility] ENCOUNTERS ADMIT/DISCHARGE ACCOUNT NUMBER ADMITTING ENCOUNTER CLASS LOCATION SOURCE 05/22/2025/05/22/20 [id number] [facility] 03/11/2025/03/11/20 25 [id number] [facility] 01/02/2025/01/02/20 [id number] [facility] 01/02/2025 [id number] [facility] 11/03/2024/11/03/20 24 [id number] [facility] 10/28/2024 [id number] [facility] 10/28/2024/10/29/20 24 [id number] [facility] 10/13/2024/10/13/20 24 [id number] MARKUS WELLS [facility]: PeriOp [facility] 10/07/2024/10/07/20 24 [id number] [facility] 10/07/2024 [id number] [facility] 10/01/2024/10/01/20 24 [id number] [facility] 10/01/2024/10/08/20 24 [id number] [facility] 10/01/2024 [id number] [facility] 09/26/2024/09/28/20 24 [id number] [facility] 09/24/2024/09/24/20 24 [id number] [facility] PAYERS ENCOUNTER GUARANTOR PAYER SUBSCRIBER SOURCE 05/22/2025 OMAIRA FUENTES: [place] [address]Yle: ~([phone] (KC) Primary Insurance:A[employer] MEDICARE VALENCIA/HMO/PFFSPo licy Number: [id number] tive Date:2023-11-26 OMAIRA FUENTES: [id number] [place], [place] [address]Vwm: (HP) [facility] 03/11/2025 OMAIRA FUENTES: [place], [place] [address]Iag: ~([phone] (HP) Primary Insurance:[employer] MEDICARE VALENCIA/HMO/PFFSPo licy Number: [id number] tive Date:2023-11-26 OMAIRA VICTORB: [id number] [place], [place] [address]Mhs: (HP) [facility] 01/02/2025 OMAIRA VICTORB: [place], [place] [address]Ilb: ~[phone] (HP) Primary Insurance:A[employer] MEDICARE VALENCIA/HMO/PFFSPo licy Number: [id number] tive Date:2023-11-26 OMAIRA VICTORB: [id number] [place], [place] [address]Dlj: (HP) [facility] 01/02/2025 OMAIRA VICTORB: [place], [place] [address]Tmz: ~([phone] (HP) Primary Insurance:AETNA MEDICARE VALENCIA/HMO/PFFSPo licy Number: [id number] tive Date:2023-11-26 OMAIRA VICTORB: [id number] [place], [place] [address]Nmk: (HP) [facility] 11/03/2024 OMAIRA VICTORB: [place], [place] [address]Hif: ~([phone] (HP) Primary Insurance:AET[employer] MEDICARE VALENCIA/HMO/PFFSPo licy Number: [id number] tive Date:2023-11-26 OMAIRA OLIVERB: [id number] [place], [place] [address]Kcl: (HP) [facility] 10/28/2024 OMAIRA VICTORB: [place], [place] [address]Fak: ~([phone] (HP) Primary Insurance:A[employer] MEDICARE VALENCIA/HMO/PFFSPo licy Number: [id number] tive Date:2023-11-26 OMAIRA VICTORB: [id number] [place], [place] [address]Luj: (HP) [facility] 10/28/2024 OMAIRA VICTORB: [place], [place] [address]Giu: ~([phone] (HP) Primary Insurance:A[employer] MEDICARE VALENCIA/HMO/PFFSPo licy Number: [id number] tive Date:2023-11-26 OMAIRA VICTORB: [id number] [place], [place] [address]Bbk: (HP) [facility] 10/13/2024 OMAIRA VICTORB: [place], [place] [address]Out: ~([phone] (HP) Primary Insurance:A[employer] MEDICARE VALENCIA/HMO/PFFSPo licy Number: [id number] tive Date:2023-11-26 OMAIRA VICTORB: [id number] [place], [place] [address]Dqm: (HP) [facility] 10/07/2024 OMAIRA VICTORB: [place], [place] [address]Shg: (HP) Primary Insurance:A[employer] MED[employer]ARE VAL[place]/HMO/PFFSPo licy Number: [id number] tive Date:2023-11-26 OMAIRA VICTORB: [id number] [place], [place] [address]Ktj: (HP) [facility] 10/07/2024 OMAIRA VICTORB: [place], [place] [address]Pkm: (HP) Primary Insurance:A[employer] MEDICARE VALENCIA/HMO/PFFSPo licy Number: [id number] tive Date:2023-11-26 OMAIRA VICTORB: [id number] [place], [place] [address]Rre: (HP) [facility] 10/01/2024 OMAIRA VICTORB: [place], [place] [address]Mvn: (HP) Primary Insurance:A[employer] MEDICARE VALENCIA/HMO/PFFSPo licy Number: [id number] tive Date:2023-11-26 OMAIRA VICTORB: [id number] [place], [place] [address]Dju: (HP) [facility] 10/01/2024 OMAIRA VICTORB: [place], [place] [address]Hvw: (HP) Primary Insurance:A[employer] MEDICARE VALENCIA/HMO/PFFSPo licy Number: [id number] tive Date:2023-11-26 OMAIRA VICTORB: [id number] [place], [place] [address]Evl: (HP) [facility] 10/01/2024 OMAIRA VICTORB: [place], [place] [address]Rwp: (HP) Primary Insurance:A[employer] MEDICARE VALENCIA/HMO/PFFSPo licy Number: [id number] tive Date:2023-11-26 OMAIRA MAJANOANTHONY: [id number] [place], [place] [address]Gyf: (HP) [facility] 09/26/2024 OMAIRA MAJANOANTHONY: [place], [place] [address]Qcj: (HP) Primary Insurance:A[employer] MEDICARE VALENCIA/HMO/PFFSPo licy Number: [id number] tive Date:2023-11-26 OMAIRA ALLANAZAR: [id number] [place], [place] [address]Fbv: (HP) [facility] 09/24/2024 OMAIRA MAJANOANTHONY: [place], [place] [address]Mba: (HP) Primary Insurance:A[employer] MEDICARE VALENCIA/HMO/PFFSPo licy Number: [id number] tive Date:2023-11-26 OMAIRA MAJANOANTHONY: [id number] [place], [place] [address]Rce: (HP) [facility] [place]
[2025-08-22 07:30] VITALS: BP 159/82; PULSE 71; RESP 16; TEMP 37.1; O2SAT 96
[2025-08-22 07:58] VITALS: BMI 27.7
--- NOTE | 2025-08-22 07:59 | ED.VIS.FEGU ---
HPI HPI - Female History of Present Illness Chief Complaint: Complaint Narrative Narrative: 85-year-old female history of chronic low back pain and degenerative disc disease presents with her daughter because of 4 days of low back pain and dysuria. She endorses urinary frequency as well. No fevers or chills, no nausea or vomiting. The last time she had symptoms like this, patient had a urinary tract infection. They state that she is on Lasix for chronic leg swelling but the last time she had a UTI, she had a mental status change and facial swelling as well as low back pain. She denies any hematuria. No other exacerbating or alleviating factors. She has Dwale for her low back pain which she usually does not like to take and takes Tylenol instead, however her low back pain was so severe that she took a Dwale this morning. [facility] Medical History Hyponatremia Gastrointestinal bleed Anemia Pure hypercholesterolemia Diverticulitis Essential hypertension Hiatal hernia History of aortic valve disorder GERRY (obstructive sleep apnea) Trigger finger of thumb GERD (gastroesophageal reflux disease) Nonrheumatic tricuspid (valve) insufficiency Nonrheumatic mitral valve regurgitation Diastolic dysfunction Pulmonary hypertension Back pain Neck pain Limb weakness Difficulty balancing Knee pain Anemia Acute hemorrhoid Basal cell carcinoma Home Medications Medication Instructions Recorded Last Taken Type clobetasol 0.05 % topical gel 1 applic topical DAILY 02/18/21 08/21/25 History cholecalciferol (vitamin D3) 250 250 mcg PO DAILY 07/09/25 08/21/25 History mcg (10,000 unit) capsule clotrimazole 10 mg maicol 10 mg PO DAILY PRN skin irritation 07/09/25 Unknown History furosemide 20 mg tablet 20 mg PO DAILY 07/09/25 08/21/25 History pantoprazole 20 mg tablet,delayed 20 mg PO QDAY 07/20/25 08/21/25 History release sucralfate 1 gram tablet (Carafate) 1 g PO QAC 07/20/25 08/21/25 History Beef Liver 1 cap PO 4X/DAY IRON SUPPLEMENT 08/22/25 08/21/25 History acetaminophen 650 mg 1,300 mg PO Q8H PRN pain 08/22/25 08/22/25 History tablet,extended release (8 Hour Pain Reliever) calcium 500 mg-vitamin D3 100 1 tab PO DAILY 08/22/25 08/21/25 History unit-vitamin K 40 mcg chewable tablet (Calcium for Women) cephalexin 500 mg capsule 500 mg PO Q12 #14 CAPSULES 08/22/25 Unknown Rx chlorthalidone 25 mg tablet 12.5 mg PO DAILY 08/22/25 08/21/25 History diclofenac sodium 1 % topical gel 2 g topical PRN ARTHRITIS PAIN 08/22/25 Unknown History (Arthritis Pain (diclofenac)) escitalopram oxalate 5 mg tablet 5 mg PO QHS 08/22/25 08/21/25 History hydrocodone-acetaminophen 5-325mg 1 tab PO BID PRN PRN pain 08/22/25 08/22/25 History 5mg-325mg hydroxychloroquine 200 mg tablet 200 mg PO DAILY 08/22/25 08/21/25 History polyethylene glycol 3350 17 17 g PO DAILY PRN constipation 08/22/25 Unknown History gram/dose oral powder (ClearLax) tacrolimus 1 mg capsule, 1 mg PO .COMPLEX 08/22/25 08/21/25 History immediate-release Allergy/AdvReac Type Severity Reaction Status Date / Time amitriptyline Allergy Severe hypotension Verified 08/22/25 07:30 meloxicam Allergy Severe hypotension Verified 08/22/25 07:30 lidocaine AdvReac Mild shaking Verified 08/22/25 07:30 cortisone AdvReac Nausea, Verified 08/22/25 07:30 hot flashes, and passing out hydrochlorothiazide AdvReac Other Verified 08/22/25 07:30 mirabegron (From Myrbetriq) AdvReac LIGHT Verified 08/22/25 08:34 HEADED AND GETS HOT morphine AdvReac Other Verified 08/22/25 07:30 nitrofurantoin (From AdvReac Other Verified 08/22/25 07:30 Macrobid) Family History Mother Hypertension Father Hypertension Grandmother CVA (cerebral vascular accident) Grandfather Myocardial infarction Grandfather Myocardial infarction Other Cervical cancer Lung cancer Surgical History History of partial knee replacement Status post trigger finger release History of spinal fusion Hx of carpal tunnel repair History of back surgery Hx of hysterectomy Hx of cholecystectomy Hx of tonsillectomy s/p right knee UKA h/o left carpal tunnel release Hx of cholecystectomy spinal fusion History of tonsillectomy H/O: hysterectomy Social History Smoking Status: Never smoker alcohol intake: never substance use type: does not use ROS ROS ED ROS Narrative Review of systems positive for urinary frequency/dysuria for 4 days. Positive for low back pain, worsening with history of degenerative disc disease. No fevers or chills, no nausea or vomiting, no other exacerbating or alleviating factors. EXAM Physical Exam Narrative Exam Narrative: Afebrile. Vital signs noted. Nontoxic-appearing. Cardiovascular examination feels regular rate and rhythm. Lungs are clear to auscultation bilaterally. Abdomen is soft and nontender without guarding or rebound. No CVA tenderness to percussion bilaterally. No crepitance. Diffuse tenderness to palpation low back in the lumbar area and paraspinal musculature, but no evidence of step-off. Neurological examination nonfocal, nonlateralizing. Moves all extremities. Const Vital Signs: 08/22/25 07:30 Temperature 98.7 F Temperature Source Oral Pulse Rate 71 Respiratory Rate 16 Blood Pressure 159/82 H Blood Pressure Mean 107 Pulse Ox 96 Oxygen Delivery Method Room Air MDM MDM MDM Narrative Medical decision making narrative: The differential diagnosis includes but not limited to cystitis versus exacerbation of chronic low back pain/DJD of spine. I have low suspicion for cauda equina based on the history and physical as it does not support this. She has already taken a Dwale tablet. Urinalysis will be sent. I did review her urinalysis and she has 500 leukocyte esterase with 25-50 WBCs with 0-5 squamous epithelial cells and 2+ bacteria. I will treat her as a cystitis. I reviewed her previous urine cultures and there were mixed almas with suspected contaminant. She has allergies to Macrobid so I will start her on cephalexin. She was given her first dose here in the emergency department and prescription written to take twice a day, 500 mg by mouth for the next 7 days. I do not feel she requires observation or admission as she has no mental status change or fever. Urine culture is pending. She will follow-up with her primary care provider. Return instructions to the emergency department were reviewed. Disposition is discharged home in stable condition. History & Record Review Discussion w/independent historian: Patient and Family (Daughter) Lab Data Attestation: I reviewed the patient's lab results. Labs: Laboratory Results - last 24 hr 08/22/25 08:05 Urine Color Yellow Urine Clarity Cloudy Urine pH 6.5 Ur Specific [place] 1.010 Urine Protein 15 H Urine Glucose (UA) Normal Urine Ketones Negative Urine Occult Blood 10 H Urine Nitrite Negative Urine Bilirubin Negative Urine Urobilinogen Normal Ur Leukocyte Esterase 500 H Urine RBC 0-5 SEEN Urine WBC 25-50 SEEN Ur Squamous Epith Cells 0-5 SEEN Urine Bacteria 2+ Urine Mucus RARE Discharge Plan Triage Chief Complaint: Complaint ED Provider: Ranjith Harden Dx/Rx/DC Orders Clinical Impression: Cystitis, Low back pain Instructions: ED Cystitis Female Adult Prescriptions: New cephalexin 500 mg capsule 500 mg PO Q12 Qty: 14 0RF No Action clobetasol 0.05 % gel 1 applic TOPICAL DAILY sucralfate [Carafate] 1 gram tablet 1 g PO QAC pantoprazole 20 mg tablet,delayed release (DR/EC) 20 mg PO QDAY hydrocodone-acetaminophen 5-325 mg tablet 1 tab PO BID PRN PRN (Reason: pain) chlorthalidone 25 mg tablet 12.5 mg PO DAILY escitalopram oxalate 5 mg tablet 5 mg PO QHS tacrolimus 1 mg capsule 1 mg PO .COMPLEX Rx Instructions: 1 mg orally 3-4XD; hydroxychloroquine 200 mg tablet 200 mg PO DAILY Beef Liver 3,000 mg capsule 1 cap PO 4X/DAY Calcium for Women 500 mg-100 unit -40 mcg tablet,chewable 1 tab PO DAILY diclofenac sodium [Arthritis Pain (diclofenac)] 1 % gel 2 g topical PRN polyethylene glycol 3350 [ClearLax] 17 gram/dose powder 17 g PO DAILY PRN (Reason: constipation) acetaminophen [8 Hour Pain Reliever] 650 mg tablet extended release 1,300 mg PO Q8H PRN (Reason: pain) cholecalciferol (vitamin D3) 250 mcg (10,000 unit) capsule 250 mcg PO DAILY furosemide 20 mg tablet 20 mg PO DAILY clotrimazole 10 mg maicol 10 mg PO DAILY PRN (Reason: skin irritation) Primary Care Provider: Юлия Conti Referrals: Юлия Conti MD [Primary Care Provider, Family Practice] - 3-5 Days if not improving Activity Restrictions/Additional Instructions: Antibiotics as directed. Continue your pain medication as needed. Return to the emergency department with sustained high fever, increased pain, new or worsening symptoms including confusion. Print Language: Danish Disposition Disposition: Home, Self Care
[2025-08-22 08:12] LABS: Color, Urine Yellow (Yellow); Glucose, Dipstick Normal (Normal); Ketone-Dipstick Negative (Negative); Leukocyte Esterase-Dipstick 500 /ul (Negative); Nitrite-Dipstick Negative (Negative); Occult Blood-Urine 10 /ul (Negative); Protein-Dipstick 15 mg/dl (Negative); Specific Gravity, Urine 1.010 (1.002-1.030); Urine Bilirubin Dipstick Negative (Negative)
[2025-08-22 08:20] LABS: Mucous, Urine RARE /hpf (<or=2+); Red Blood Cells-Urine 0-5 SEEN /hpf (0-5); Squamous Epithelial Cells - UA 0-5 SEEN /hpf (5-10)
[2025-08-22 08:59] VITALS: BP 164/77; PULSE 69; RESP 18; TEMP 37; O2SAT 99
== END 2025-08-22 09:02 | disposition home or self-care (01) ==
PROVIDERS: Emergency Provider Emergency Medicine; PCP Family Medicine; Visit Provider Emergency Medicine
DX: N30.90 Cystitis, unspecified without hematuria (principal); I10 Essential (primary) hypertension; M54.50 Low back pain, unspecified; E78.00 Pure hypercholesterolemia, unspecified; K21.9 Gastro-esophageal reflux disease without esophagitis; Z79.899 Other long term (current) drug therapy
CPT/HCPCS: 81001; 87086; 87088; 99282

== ENCOUNTER → 2025-09-04 | Outpatient (CLI) | payer MEDICARE, SELFPAY ==
[2025-09-04 15:11] LABS: Hematocrit 31.4 % (37-47); Hemoglobin 10.6 g/dL (12.0-15.0); Immature Granulocytes Count 0.020 X10^3/uL (0.0-0.0); Mean Corp Hgb Conc 33.8 g/dL (32-36); Mean Corpuscular Volume 91.3 fL (81-99); Mean Platelet Vol. 9.8 fl (6.2-12.0); NRBC Flagged by Analyzer 0 % (0-5); Platelet Count 313 K/mm3 (150-450); RBC Distribution Width CV 13.2 % (11.6-14.6); RBC Distribution Width SD 43.9 fl (35.1-43.9); Red Blood Count 3.44 M/mm3 (4.2-5.4); White Blood Count 5.9 K/mm3 (4.4-11.0)
[2025-09-04 15:24] LABS: Anion Gap 13 (5-15); BUN 19 mg/dL (4-19); BUN/Creat Ratio 21.7 RATIO (10-20); Calcium,Total 10.3 mg/dL (7.6-11.0); Carbon Dioxide 27.8 mmol/L (21.0-32.0); Chloride 89 mmol/L (98-108); Glucose 107 mg/dL (70-99); Potassium 3.1 mmol/L (3.3-5.1)
== END | disposition home or self-care (01) ==
LOC: MFPLAB 12:15
PROVIDERS: PCP Family Medicine; Visit Provider Family Medicine
DX: R42 Dizziness and giddiness (principal); H61.20 Impacted cerumen, unspecified ear; D64.9 Anemia, unspecified; R79.89 Other specified abnormal findings of blood chemistry
CPT/HCPCS: 36415; 80048; 83036; 84443; 85025

== ENCOUNTER → 2025-09-16 | Outpatient (CLI) | payer MEDICARE, SELFPAY ==
--- NOTE | 2025-09-16 15:34 | US_ITS ---
PROCEDURE: THYROID 09/16/2025 REASON FOR EXAM: LOW TSH LEVEL TECHNIQUE: Procedure Code: USTHY Modality: US Procedure: THYROID COMPARISON: Prior CT scan of the thorax dated October 03, 2024. FINDINGS: Right thyroid lobe size: 1.8 cm 1.6 cm 1.3 cm Left thyroid lobe size: 4.2 cm 1.6 cm 1.4 cm Isthmus: 0.2 cm Background parenchymal echotexture is homogeneous. Nodules: . Lobe: Right, Location: Upper pole, Size: 1.8 cm x 1.6 cm 1.3 cm, Stability: N/A Composition: Solid or almost completely solid (+2) Echogenicity: Hypoechoic (+2) Margin: Smooth (+0) Shape: Wider than tall (+0) Echogenic Foci: None (+0) TI-RADS: 4 . Lobe: Left lobe, Location: Upper pole, Size: 0.4 cm 0.4 cm x 0.3 cm, Stability: N/A Composition: Cystic or mostly cystic (+0) Echogenicity: Anechoic (+0) Margin: Smooth (+0) Shape: Wider than tall (+0) Echogenic Foci: None (+0) TI-RADS: 0 3 mm x 3 mm x 2 mm cyst in the midpole of the left lobe of the thyroid. US/Thyroid IMPRESSION: 1.8 cm 1.6 cm 1.3 cm complex nodule in the upper pole of the right lobe of the thyroid as described. Biopsy recommended. RECOMMENDATION: Based on most suspicious nodule. Nodule size = largest diameter Only evaluate nodule if =>5 mm. Growth > 20% in 2 dimensions = worsening. Follow up to 4 nodules. Recommend biopsy for no more than 2 nodules. Reading Location: [facility]
== END | disposition home or self-care (01) ==
LOC: US 15:30
PROVIDERS: PCP Family Medicine; Referring Provider Family Medicine; Visit Provider Family Medicine
DX: R79.89 Other specified abnormal findings of blood chemistry (principal)
CPT/HCPCS: 76536

== ENCOUNTER → 2025-09-22 | Outpatient (CLI) | payer MEDICARE, SELFPAY ==
[2025-09-22 12:33] LABS: Hematocrit 31.2 % (37-47); Hemoglobin 10.5 g/dL (12.0-15.0); Immature Granulocytes Count 0.030 X10^3/uL (0.0-0.0); Mean Corp Hgb Conc 33.7 g/dL (32-36); Mean Corpuscular Volume 90.2 fL (81-99); Mean Platelet Vol. 10.5 fl (6.2-12.0); NRBC Flagged by Analyzer 0 % (0-5); Platelet Count 340 K/mm3 (150-450); RBC Distribution Width CV 12.8 % (11.6-14.6); RBC Distribution Width SD 42.2 fl (35.1-43.9); Red Blood Count 3.46 M/mm3 (4.2-5.4); White Blood Count 6.5 K/mm3 (4.4-11.0)
== END | disposition home or self-care (01) ==
LOC: MTLAB 09:35
PROVIDERS: PCP Family Medicine; Referring Provider Dermatology; Visit Provider Dermatology
DX: Z79.899 Other long term (current) drug therapy (principal)
CPT/HCPCS: 36415; 85025

== ENCOUNTER → 2025-10-20 | Outpatient (CLI) | payer MEDICARE, SELFPAY ==
--- NOTE | 2025-10-20 10:05 | CYSPIN_PTH ---
PATIENT: ANGEL OLIVER LOC: [facility] U#:[id number] AGE/SX: 85/F ROOM: RE10/20/[address]: Dr. Calvin Coreas MD : [id number] BED: DIS: 10/20/2025 SPEC #: [id number] RECD: 10/20/25 10:50 STATUS: RUBI REHeydi #: [id number] TAY: 10/20/25 10:[address]: Calvin Coreas DEPT: CYTOLOGY RECD BY: Julio Pérez ENTERED: 10/20/25 12:00 SP TYPE: CYSPIN FL OTHR DR: Юлия Conti MD Tissues: A - Thyroid gland, NOS Procedures: Pap Stain (control) Special Stain Group II Diff Quik Stain (control) Cytospin Fluid Cytology Other HEADER OPERATION: Fine needle aspiration of right inferior thyroid nodule PRE-OP DIAGNOSIS: Right inferior thyroid nodule TISSUE SUBMITTED: A- Right inferior thyroid nodule for cytology DIAGNOSIS CYTOLOGY A. Right inferior thyroid, nodule, FNA (cytospin, smear x4): - Nondiagnostic (TBS I). - Insufficient cellularity. CYTOLOGY STUDY Slides are reviewed. CYTOLOGY GROSS A. Received is 30 ml of pink-cloudy cytolyt with particles and 4 slides labeled with the patient's name and and designated per the requisition as Right inferior thyroid. Submitted for cytology and cytospin. Mr 10/20/2025 CPT: 90249
== END | disposition home or self-care (01) ==
LOC: LABSPEC 11:00
PROVIDERS: PCP Family Medicine; Referring Provider Surgery; Visit Provider Surgery
DX: E04.1 Nontoxic single thyroid nodule (principal)
CPT/HCPCS: 88108; 88161; 88313

== ENCOUNTER → 2025-10-21 | Outpatient (CLI) | payer MEDICARE, SELFPAY ==
--- NOTE | 2025-10-21 14:58 | CT_ITS ---
PROCEDURE: ABDOMEN/PELVIS W IV CONT ONLY 10/21/2025 REASON FOR EXAM: ABD AIN TECHNIQUE: Procedure Code: [id number] Modality: CT Procedure: ABDOMEN/PELVIS W IV CONT ONLY Coronal and Sagittal reconstruction series were provided. CONTRAST: Isovue 370 VOLUME: 75 mL One or more dose reduction techniques were used (e.g., Automated exposure control, adjustment of the mA and/or kV according to patient size, use of iterative reconstruction technique. RADIATION DOSE SUMMARY: CTDlvol: 13.58 mGy DLP: 656.52 mGycm COMPARISON: CT abdomen and pelvis July 09, 2025. FINDINGS: Lung bases: Clear. Liver: Multiple simple kidney cysts with the largest measures 1.5 cm in the left hepatic lobe. Gallbladder: Status post cholecystectomy. No biliary dilation. Spleen: Unremarkable. Pancreas: Unremarkable. Adrenals: Unremarkable. Kidneys: No hydronephrosis. No nephrolithiasis. A 1.5 cm simple cyst at the midpole of the left kidney. Bladder: Unremarkable. Reproductive Organs: Unremarkable. Bowel: No bowel wall thickening. No bowel obstruction. Colonic diverticulosis with no evidence of acute diverticulitis. Appendix: Unremarkable. Lymph nodes: No lymphadenopathy. Vasculature: No aneurysm. No dissection. Peritoneum / Retroperitoneum: No free air or free fluid. Bones: No acute bony elements. Status post laminectomies at L4-L5 along with spacer placement. Multilevel degenerate changes of the lumbar spine. CT/Abdomen/Pelvis W IV Cont ONLY IMPRESSION: No acute abdominopelvic abnormalities. Colonic diverticulosis with no evidence of acute diverticulitis. Reading Location: [facility]
== END | disposition home or self-care (01) ==
LOC: CT 14:51
PROVIDERS: PCP Family Medicine; Referring Provider Family Medicine; Visit Provider Family Medicine
DX: R10.9 Unspecified abdominal pain (principal)
CPT/HCPCS: 74177; Q9967